=== PATIENT | male | born 1960 | race Caucasian/White ===

== ENCOUNTER 2018-02-15 13:33 | Observation (INO) | payer OTHER ==
--- OUTSIDE RECORDS SUMMARY | 2018-02-15 13:46 | XMS REPORT | Clinical Summary ---
:1960 Author Organization [facility] Address [address] [place] [address] Care Team Providers Name Role Phone Asked, None Given Primary Care Provider Unavailable Allergies Active Allergy Reactions Severity Noted Date Comments Meperidine GI Intolerance High 03/19/2017 "severe vomiting" Latex Anaphylaxis High 03/19/2017 Infliximab Anaphylaxis High 03/19/2017 Current Medications Prescription Sig. Disp. Refills Start Date End Date Status predniSONE Take 5 mg by Active (DELTASONE) 10 MG mouth every tablet morning. folic acid (FOLVITE) Take 1 mg by Active 1 MG tablet mouth daily. ARIPiprazole Take 5 mg by Active (ABILIFY) 5 MG mouth every tablet morning. tamsulosin (FLOMAX) Take 0.4 mg by Active 0.4 mg mouth every capsule,extended morning. release 24hr DULOXETINE HCL Take 60 mg by Active (CYMBALTA ORAL) mouth every morning. Takes two of the 60mg in the morning rivaroxaban Take 15 mg by Active (XARELTO) tablet mouth every morning. multivitamin capsule Take 1 capsule Active by mouth daily. ferrous sulfate Take 325 mg by Active (IRON) 325 (65 FE) mouth daily. MG tablet ascorbic acid, Take 500 mg by Active vitamin C, (ascorbic mouth daily. acid with philip hips) 500 MG tablet sotalol (BETAPACE) Take 120 mg by Active 120 MG tablet mouth 2 (two) times a day. chlorthalidone Take 25 mg by Active (HYGROTEN) 25 MG mouth every tablet morning. spironolactone Take 50 mg by Active (ALDACTONE) 50 MG mouth 2 (two) tablet times a day. acetaZOLAMIDE Take 250 mg by Active (DIAMOX) 250 MG mouth every tablet morning. ANAKINRA (KINERET Inject 100 mg Active SUBQ) under the skin daily. omeprazole TAKE 1 CAPSULE 90 capsule 2 10/25/2017 Active (PriLOSEC) 20 MG (20 MG TOTAL) capsule BY MOUTH DAILY FOR 180 DAYS. sulfaSALAzine Take 500 mg by Discontinued (AZULFIDINE) 500 mg mouth 2 (two) 7 tablet times a day. Takes 2 tabs of the 500mg BID NEBIVOLOL HCL Take 40 mg by Discontinued (BYSTOLIC ORAL) mouth. 7 METHOTREXATE SODIUM Take 20 mg by Discontinued (METHOTREXATE, mouth once a 7 ANTI-RHEUMATIC, week. ORAL) pantoprazole Take 40 mg by Discontinued (PROTONIX) 40 MG EC mouth every 7 tablet morning. CALCIUM Take 1 tablet Discontinued CARBONATE/VITAMIN D3 by mouth 7 (CALTRATE 600 + D daily. ORAL) CHOLECALCIFEROL, Take by mouth Discontinued VITAMIN D3, (VITAMIN daily. 7 D3 ORAL) HYDROcodone-acetamin Take 1 tablet 0 03/12/2017 Discontinued ophen (NORCO) 10-325 by mouth 4 7 mg per tablet (four) times a day. omeprazole Take 1 capsule 90 capsule 1 04/02/2017 Discontinued (PriLOSEC) 20 MG (20 mg total) 7 capsule by mouth daily for 180 days. ondansetron ODT Take 1 tablet 21 tablet 0 04/02/2017 (ZOFRAN-ODT) 8 MG (8 mg total) 7 disintegrating by mouth every tablet 8 (eight) hours as needed for nausea or vomiting for up to 30 days. HYDROcodone-acetamin Take 20 mL by 04/02/2017 ophen (HYCET) mouth every 4 7 2.5-108.3 mg/5 mL (four) hours solution as needed for moderate pain for up to 21 days. Max Daily Amount: 120 mL Active Problems Problem Noted Date Urethral stricture 05/26/2017 Overview: on tamsulosin Acute cystitis without hematuria 05/26/2017 Morbid obesity with BMI of 45.0-49.9, adult 04/01/2017 S/P laparoscopic sleeve gastrectomy 03/31/2017 Encounters Date Type Specialty Care Team Description 11/05/2017 Hospital Encounter Yo Baker MD 11/05/2017 Hospital Encounter Radiology Yo Khan MD 11/05/2017 Hospital Encounter Yo Baker MD 11/05/2017 Hospital Encounter Yo Baker MD 11/05/2017 Office Visit General Surgery Sd Torres S/P laparoscopic sleeve gastrectomy (Primary Dx); CANDELARIO Alicia Morbid obesity with BMI of 45.0-49.9, adult 11/05/2017 Ancillary Orders Radiology Yo Khan MD 10/24/2017 Refill General Surgery Jackelin Nguyễn PA 07/09/2017 Office Visit General Surgery Jackelin Nguyễn Morbid obesity with BMI of 50.0-59.9, adult (Primary Dx); CANDELARIO Osborne S/P laparoscopic sleeve gastrectomy 07/09/2017 Orders Only General Surgery Erin Tsang, [place] 05/27/2017 Telephone General Surgery Jackelin Nguyễn PA 05/26/2017 Office Visit General Surgery Yo Khan Morbid obesity with BMI of 50.0-59.9, adult (Primary Dx); MD Antoine S/Hetal laparoscopic sleeve gastrectomy; Acute cystitis without hematuria 04/20/2017 Office Visit General Surgery oY Khan Morbid obesity with BMI of 50.0-59.9, adult (Primary Dx); MD Clarisa Schultz/Hetal laparoscopic sleeve gastrectomy 03/31/2017 - Hospital Encounter General Surgery Yo Khan Preop testing (Primary Dx); 04/02/2017 MD Antoine Morbid exogenous obesity; Benign hypertension; Lateral ventral hernia 03/31/2017 Procedure Pass General Surgery 03/31/2017 Surgery General Surgery Yo Khan GASTRECTOMY, Antoine CASEY MD LAPAROSCOPIC 03/22/2017 Anesthesia Event General Surgery Lakia Mckinney NP after 02/14/2017 Family History Medical History Relation Name Comments Cirrhosis Brother Hepatitis Brother Cancer Father Melanoma Father Cancer Mother Hypertension Mother Lung cancer Mother Osteoporosis Mother Relation Name Status Comments Brother Alive Father Mother Alive Social History Tobacco Use Types Packs/Day Years Used Date Never Smoker Smokeless Tobacco: Never Used Alcohol Use Drinks/Week oz/Week Comments No Sex Assigned at Date Recorded Not on file Last Filed Vital Signs Vital Sign Reading Time Taken Blood Pressure 104/57 11/05/2017 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 Pulse 78 11/05/2017 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 Temperature 36.4 C (97.6 F) 11/05/2017 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 Respiratory Rate 16 11/05/2017 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 Oxygen Saturation 98% 04/02/2017 8:33 AM CDT Inhaled Oxygen Concentration - - Weight 175 kg (386 lb 1.6 oz) 11/05/2017 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 Height 188 cm (6' 2") 11/05/2017 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 Body Mass Index 49.57 11/05/2017 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 Plan of Treatment Date Type Specialty Care Team Description 03/09/2018 Office Visit General Surgery Yo Khan MD [address] [address] Health Maintenance Due Date Last Done Comments COLONOSCOPY 2011 INFLUENZA VACCINE 06/22/2017 Procedures Procedure Name Priority Date/Time Associated Diagnosis Comments ARTERIAL LINE Routine 03/31/2017 9:07 AM CDT Procedure Note - William Jacob MD - 03/31/2017 9:07 AM CDT Arterial line Performed by: WILLIAM JACOB Authorized by: WILLIAM JCAOB Patient Location: OR Staff: Anesthesiologist: WILLIAM JACOB Performed by: Anesthesiologist Pre-procedure: patient identified, IV checked, site and side verified, risks and benefits discussed, procedure verified, surgical consent complete, patient position confirmed, monitors and equipment checked and pre-op evaluation complete MSBT: antiseptic used, all elements of maximal sterile barrier technique followed, hand hygiene performed, cap/gown used by other personnel and solutions labeled Indications: Indications: hemodynamic monitoring Anesthesia: Anesthesia: General Procedure Details: Arterial Line placement: Placed post induction Line placement site: Radial Line placement side: Left Arterial line gauge: 20 G Number of attempts: 2 Ultrasound guidance used: Yes Post-procedure: Post-procedure: Sterile dressing applied Patient tolerance: Patient tolerated the procedure well with no immediate complications NH AN ELECTIVE ENDOTRACHEAL AIRWAY Routine 03/31/2017 9:06 AM CDT Procedure Note - William Jacob MD - 03/31/2017 9:06 AM CDT Airway Performed by: WILLIAM JACOB Authorized by: WILLIAM JACOB Location: OR Urgency: Elective Difficult Airway: No Preoxygenated with 100% O2: Yes C-spine Precautions Maintained Throughout: No Mask Ventilation: Easy mask Final Airway Type: Endotracheal airway Final Endotracheal Airway: ETT Cuffed: Yes Technique Used: Direct laryngoscopy Blade Type: Cardona Laryngoscope Blade/Videolaryngoscope Blade Size: 2 ETT Size (mm): 8.0 Cuff at minimum occlusion pressure: Yes Measured from: Lips ETT to Lips (cm): 23 Placement Verified by: CO2 detection, direct visualization and equal breath sounds Laryngoscopic view: Grade I - full view of glottis Rapid Sequence Induction (RSI): No Modified RSI: No Number of Attempts at Approach: 1 GASTRECTOMY, SLEEVE, 03/31/2017 8:00 AM CDT Morbid exogenous obesity LAPAROSCOPIC Case Notes BMI 63.9, BARIATRIC BED Special Needs BMI 63.9, BARIATRIC BED after 02/14/2017 Results CBC with platelet and differential (04/01/2017 5:00 AM)Only the most recent of2 resultswithin the time period is included. Component Value Ref Range WBC 13.93 (H) 4.50 - 11.00 k/uL RBC 3.78 (L) 4.40 - 6.00 m/uL HGB 12.1 (L) 14.0 - 18.0 g/dL HCT 38.0 (L) 41.0 - 51.0 % MCV 100.5 (H) 82.0 - 100.0 fL MCH 32.0 27.0 - 34.0 pg MCHC 31.8 31.0 - 37.0 g/dL RDW - SD 52.0 37.0 - 55.0 fL MPV 10.9 8.8 - 13.2 fL Platelet count 235 150 - 400 k/uL Nucleated RBC 0.10 /100 WBC Neutrophils 63.9 39.0 - 69.0 % Lymphocytes 22.0 (L) 25.0 - 45.0 % Monocytes 11.8 (H) 0.0 - 10.0 % Eosinophils 0.5 0.0 - 5.0 % Basophils 0.7 0.0 - 1.0 % Immature granulocytes 1.1 (H)Comment: "Immature granulocytes" 0.0 - 1.0 % (promyelocytes, myelocytes, metamyelocytes) Specimen Performing Laboratory Blood [facility] DEPARTMENT OF PATHOLOGY AND GENOMIC MEDICINE [address] [place] [address] Estimated GFR (04/01/2017 4:00 AM)Only the most recent of2 resultswithin the time period is included. Component Value Ref Range GFR Non Af Amer >90 mL/min/1.73 m2 GFR Af Amer >90 mL/min/1.73 m2 Comment: Chronic kidney disease: <60 mL/min/1.73m2 Kidney failure: <15 mL/min/1.73m2 The estimated GFR is calculated from the IDMS-traceable Modification of Diet in Renal Disease Equation. The accuracy of the calculation is poor when the creatinine is normal. Calculated values >90 mL/min/1.73m2 are not reported. This equation has not been validated in children (<18 years), women, the elderly (>70 years), or ethnic groups other than Caucasians and Americans. Specimen Performing Laboratory Plasma specimen [facility] [address] [address] Magnesium level (04/01/2017 4:00 AM)Only the most recent of2 resultswithin the time period is included. Component Value Ref Range Magnesium 2.2 1.6 - 2.6 mg/dL Specimen Performing Laboratory Plasma specimen [facility] [address] [address] Basic metabolic panel (04/01/2017 4:00 AM)Only the most recent of2 resultswithin the time period is included. Component Value Ref Range Sodium 134 (L) 135 - 148 mEq/L Potassium 4.6 3.5 - 5.0 mEq/L Chloride 99 98 - 112 mEq/L CO2 19 (L) 24 - 31 mEq/L Anion gap 16 (H) 7 - 15 mEq/L Comment: Starting from February , anion gap calculation no longer incorporates potassium. Please note the change. BUN 11 6 - 20 mg/dL Creatinine 0.8 0.7 - 1.2 mg/dL Glucose 118 (H) 65 - 99 mg/dL Calcium 8.2 (L) 8.3 - 10.2 mg/dL Specimen Performing Laboratory Plasma specimen [facility] AND [address] [address] ECG 12 lead (03/31/2017 8:19 PM) Component Value Ref Range Ventricular rate 99 Atrial rate 99 NH interval 188 QRSD interval 94 QT interval 356 QTC interval 456 P axis 1 59 QRS axis 1 62 T wave axis 57 EKG impression Normal sinus rhythm-Low voltage QRS-Incomplete right bundle branch block-Septal infarct , age undetermined-Abnormal ECG-In automated comparison with ECG of 22-MAR-2017 10:03,-Septal infarct is now prese nt-Nonspecific T wave abnormality now evident in Anterior leads-Electronically Signed By Ajit Shaw ([id number]) on 2016 7:44:44 PM Specimen Performing Laboratory [facility] [address] [place] [id number] Surgical pathology request (03/31/2017 8:46 AM) Component Value Ref Range Surgical pathology report See link below for PDF Lab Report Specimen Performing Laboratory [facility] DEPARTMENT OF PATHOLOGY AND GENOMIC MEDICINE [address] [place] [id number] ECG Pre/Post Op (03/22/2017 10:03 AM) Component Value Ref Range Ventricular rate 80 Atrial rate 80 NH interval 170 QRSD interval 92 QT interval 396 QTC interval 456 P axis 1 17 QRS axis 1 87 T wave axis 57 EKG impression Normal sinus rhythm-Incomplete right bundle branch block-Borderline ECG- Specimen Performing Laboratory [facility] [address] [place] [id number] after 02/14/2017 Insurance Payer Benefit Plan / Group Subscriber ID Type Phone Address COMMERCIAL MISC MISC COMMERCIAL xxxxxxxxxxx Commercial MEDICARE MEDICARE PART A AND B xxxxxxxxxx Medicare [facility] xxxxxxxxxxx Commercial [phone] [address]
[2018-02-15 14:41] LABS: Absolute Lymphocytes (CBC) 2.6 K/uL (0.7-4.9); Absolute Neutrophil 10.4 K/uL (1.8-8.0); Basophils % 0.8 % (0-1.3); Eosinophils % 2.8 % (0-4.4); Hematocrit 40.8 % (39.6-49.0); MCH 29.5 pg (27.0-35.0); MCV 90.2 fL (80-100); MPV 9.2 fL (7.6-11.3); Monocytes % 7.1 % (3.3-12.3); RBC Red Blood Cell Count 4.52 M/uL (4.33-5.43)
[2018-02-15] MEDS: NA CHLORIDE 0.9% 1,000 ML IV SCH (14:50)
[2018-02-15] MEDS: CEFEPIME/SWI 1gm 1 GM/10 ML SYR IV SCH ×2 (14:51→20:32)
[2018-02-15] MEDS: VANCOMYCIN/NS 1 gm 1 GM/250 ML BAG IVPB SCH (14:51)
[2018-02-15 14:58] LABS: Potassium 3.3 mEq/L (3.6-5.0)
[2018-02-15] MEDS ORDERED: predniSONE 20 MG TAB PO ONE (15:00)
[2018-02-15 15:01] LABS: Bilirubin Total 0.6 mg/dL (0.3-1.2); Magnesium 1.5 mg/dL (1.8-2.5); Protein, Total 7.2 g/dL (6.0-8.3)
[2018-02-15 15:36] LABS: Thyroid Stimulating Hormone 1.35 uIU/mL (0.34-5.60)
[2018-02-15] MEDS ORDERED: HYDROMORPHONE ORAL 4 MG TAB PO PRN (16:09)
[2018-02-15] MEDS ORDERED: PROMETHAZINE 25 MG TABLET PO PRN (16:09)
[2018-02-15] MEDS: PANTOPRAZOLE 40MG TABLET PO SCH (16:49)
[2018-02-15] MEDS ORDERED: Magnesium Sulfate 2gm IVPB 2 G/50 ML BAG IV ONE (17:00)
[2018-02-15] MEDS ORDERED: POTASSIUM CL SA 10 MEQ TAB PO ONE (17:00)
[2018-02-15 17:47] VITALS: BMI 48.7
[2018-02-15] MEDS ORDERED: ONDANSETRON 4 MG/2 ML VIAL IV PRN (18:44)
[2018-02-15] MEDS: PROMETHAZINE 25 MG/ML VIAL IV PRN (20:33)
[2018-02-15] MEDS: FENTANYL CITR 100 MCG/2 ML IV PRN (20:33)
[2018-02-15] MEDS: SOTALOL HCL 80 MG TAB PO SCH (20:33)
[2018-02-15] MEDS: SPIRONOLACTONE 25 MG TABLET PO SCH (20:34)
[2018-02-15] MEDS ORDERED: CEFEPIME 1 GM/VIAL IV SCH (21:00)
[2018-02-15] MEDS ORDERED: HOME MED 1 EA UNK (Spironolactone [Spironolactone] 50 MG) PO SCH (21:00)
[2018-02-16 00:01] LABS: Magnesium 2.1 mg/dL (1.8-2.5); Potassium 4.2 mEq/L (3.6-5.0)
[2018-02-16] MEDS: PROMETHAZINE 25 MG/ML VIAL IV PRN ×3 (00:11→09:31)
[2018-02-16] MEDS: FENTANYL CITR 100 MCG/2 ML IV PRN ×3 (00:11→09:32)
[2018-02-16] MEDS: VANCOMYCIN/NS 1 gm 1 GM/250 ML BAG IVPB SCH (03:24)
[2018-02-16] MEDS: NA CHLORIDE 0.9% 1,000 ML IV SCH (03:25)
--- NOTE | 2018-02-16 04:46 | HP ---
Date of Admission: 02/15/2018 Chief Complaint: Cloudy urine, abdominal pain. History Of Present Illness: This is a 57-year-old pleasant male patient with history of urethral str icture, recurrent UTI, gets intermittent catheterization of bladder done 2 to 4 times a day. Yesterd hilda, I was contacted by home health nurse, requesting urine specimen to be collected for urinalysis an d urine culture as the patient's urine was very cloudy and he was having some abdominal pain/flank pa in. Urinalysis was done which result reviewed this morning. It was abnormal consistent with urinary tract infection and when I talked to the patient's this morning, she notified me that the patie nt's blood pressure yesterday systolic blood pressure was around 67 and he was feeling little dizzy. This morning, his blood pressure was 86, systolic. Denies any diarrhea but yesterday he had 2 episo mayra of vomiting. He has been having right-sided anterior and posterior flank pain. His urine is lisa udy and has peculiar foul smelling odor. Arrangements were made for him to be admitted directly to [facility] for further evaluation and management of this problem. Allergies: TO DEMEROL, REMICADE, AND LATEX. Medications: List reviewed. Review of Systems: Genitourinary: As mentioned above. GI: As mentioned above. Constitutional: As mentioned above. All other systems reviewed and negative. Social History: Negative for smoking or alcohol use. Family History: Not pertinent. Past Surgical History: Significant for recent abdominal wall abscess and incision and drainage done for that, ventral hernia, knee surgery, and Port-A-Cath placement. 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 Physical Examination: Vital Signs: Reviewed. General: Awake, alert, oriented, not in distress. HEENT: Head atraumatic, normocephalic. Conjunctivae nonerythematous. Sclerae white. Mouth, no thr ush or edema noted. Ears/Nose, no mass, lesion, discharge noted. Neck: Supple. No JVD, lymph nodes, bruit, thyromegaly noted. Lungs: Bilateral good equal air entry. Clear to auscultation. No rhonchi. No rales. Heart: Normal heart sounds, no murmur or gallop. Abdomen: Left upper anterior abdomen has a very small dressing with a wound VAC present and abdomen has tenderness on the right anterior and posterior flank region. No rebound tenderness. Bowel sound s normoactive. Extremities: No leg edema. No calf tenderness. Skin: No rash, ulcer, cellulitis. Lymphatics: No lymph node enlargement in neck, supraclavicular, infraclavicular region. Neuro: No focal neurological deficit. Chest: Unremarkable. External Genitalia: Deferred. Rectal: Deferred. Laboratory Data: White count 14.6, hemoglobin 13.3, platelets 301. Sodium 134, potassium 3.3, chlor manuel 97, bicarb 27, BUN 24, creatinine 1.18, glucose 143, magnesium 1.5. Liver function tests unremar kable. TSH 1.35. Urinalysis; positive for nitrite, 3+ esterase, wbc more than 50, bacteria 20 to 50 . Urine culture pending. Impression: 1.Urinary tract infection. 2.Rule out sepsis. 3.Hypokalemia. 4.Hypomagnesemia. 5.Hypotension. 6.Chronic steroid therapy. 7.Chronic anticoagulation therapy. 8.Paroxysmal atrial fibrillation. 9.Sleep apnea. 10.Morbid obesity. 11.Urethral stricture. 12.Rheumatoid arthritis. 13.Crohn disease. 14.Ventral hernia. 15.Hypertension. Plan: Admit the patient to hospital for further evaluation and management of this problem. The della ent is appropriate for inpatient and is expected to spend 2 midnights in the hospital. Continue home medications per order, 20 mg of prednisone p.o. x1 dose was ordered starting tomorrow. We will cont inue his usual dose of prednisone. IV fluid normal saline will be given. Continue Xarelto as he epifanio es at home and other current medications. We will follow up on urine culture. Start empiric antibio tic, vancomycin and cefepime. 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 Depending on the culture results, we will decide culture sp ecific antibiotic. Port-A-Cath will be accessed. The patient is requesting some stronger pain medic ation and IV fentanyl was ordered. Details and plan of treatment discussed with him. Consultation w as requested from Dr. Joya from General Surgery to look at his wound care management, but conside ring he is out of town, the patient will need to continue to follow up with him on outpatient basis. JORDAN/KENDALL Voice ID: [id number]
[2018-02-16] MEDS ORDERED: RIVAROXABAN 15 MG TABLET PO SCH (08:00)
[2018-02-16 08:13] VITALS: BP 102/60; TEMP 99.6
[2018-02-16] MEDS: PANTOPRAZOLE 40MG TABLET PO SCH (08:20)
[2018-02-16] MEDS: SOTALOL HCL 80 MG TAB PO SCH (08:21)
[2018-02-16] MEDS: SPIRONOLACTONE 25 MG TABLET PO SCH (08:22)
[2018-02-16] MEDS ORDERED: HEPARIN 500 UNIT/5 ML SYR IV PRN (08:56)
[2018-02-16] MEDS ORDERED: ARIPiprazole 5 MG TAB PO SCH (09:00)
[2018-02-16] MEDS ORDERED: acetaZOLAMIDE 250 MG TAB PO SCH (09:00)
[2018-02-16] MEDS ORDERED: DULOXETINE 30 MG CAP PO SCH (09:00)
[2018-02-16] MEDS ORDERED: DULOXETINE HCL PO SCH (09:00)
[2018-02-16] MEDS ORDERED: TAMSULOSIN 0.4 MG SR CAP PO SCH (09:00)
[2018-02-16] MEDS ORDERED: predniSONE 5 MG TAB PO SCH (09:00)
[2018-02-16] MEDS ORDERED: CHLORTHALIDONE 25 MG TAB PO SCH (09:00)
[2018-02-16] MEDS: CEFEPIME/SWI 1gm 1 GM/10 ML SYR IV SCH (09:52)
[2018-02-16 11:08] LABS: A1c Component 0.63 mg/dL; Hemoglobin A1c 6.4 % (4-6.0)
[2018-02-16 13:12] VITALS: O2SAT 93
[2018-02-16] MEDS ORDERED: VANCOMYCIN 2 GM in NA CHLORIDE 0.9% 500 ML IV SCH (14:00)
--- NOTE | 2018-02-28 05:13 | DS ---
Date of Discharge: 02/16/2018 Physical Examination: HEENT: Unremarkable. Lungs: Clear to auscultation. Heart: Sounds normal. Abdomen: Soft, bowel sounds normal. No guarding, rigidity, tenderness, or distention. Extremities: No leg edema. Discharge Diagnoses: 1.Urinary tract infection. 2.Hypokalemia. 3.Hypomagnesemia. 4.Hypotension. 5.Paroxysmal atrial fibrillation. 6.Chronic anticoagulation therapy. 7.Chronic steroid therapy. 8.Sleep apnea. 9.Morbid obesity. 10.Urethral stricture. 11.Rheumatoid arthritis. 12.Crohn disease. 13.Ventral hernia. 14.Hypertension. Hospital Course: A 57-year-old male patient, admitted to the hospital with cloudy urine, abdominal p ain, and low blood pressure. Please see dictated H and P for more information. The patient was admi tted to the hospital with this urinary tract infection. He has urethral stricture. Does self cathet erization of the bladder and has prior history of urinary tract infection with resistant bacteria lik e MRSA. We were concerned about infection with resistant bacteria. His outpatient urinalysis was ab normal and he was admitted to the hospital. Our other concern was if we were dealing with possibilit y of sepsis. Blood culture was done. Upon admission, it came back negative. Urine culture with uri ne specimen that was collected day before admission to the hospital came back growing E. coli and thi s was sensitive to multiple different antibiotic including Levaquin and Cipro. The patient has taken Levaquin before without any problem. During this hospitalization, he was given IV antibiotic, vanco mycin, and cefepime and overall his condition improved. Hemoglobin A1c came back 6.4, potassium was 3.3, which was low and magnesium 1.5 which was low. Both of them were corrected. Repeat potassium 4 .2, repeat magnesium 2.1. Once the urine culture result was available, he was discharged to go home in stable condition with oral antibiotic. Discharge Medications And Instructions: 1.Continue all prior home medications. 2.Start Levaquin 500 mg p.o. daily for 10 days. 3.Follow up at my office in 1 month. JORDAN/MODL Voice ID: [id number] Report ID: [id number]
== END 2018-02-16 11:31 | disposition home or self-care (01) ==
LOC: 4TH 13:43 → INTOOBSV 13:43
PROVIDERS: ADMIT Internal Medicine; ATTEND Internal Medicine
DX: N39.0 Urinary tract infection, site not specified (principal); B96.20 Unspecified Escherichia coli [E. coli] as the cause of diseases classified elsewhere; E87.6 Hypokalemia; E83.42 Hypomagnesemia; I95.9 Hypotension, unspecified; I48.0 Paroxysmal atrial fibrillation; G47.30 Sleep apnea, unspecified; E66.01 Morbid (severe) obesity due to excess calories; Z68.42 Body mass index [BMI] 45.0-49.9, adult; N35.9 Urethral stricture, unspecified; M06.9 Rheumatoid arthritis, unspecified; K50.90 Crohn's disease, unspecified, without complications; K43.9 Ventral hernia without obstruction or gangrene; I10 Essential (primary) hypertension; Z79.01 Long term (current) use of anticoagulants; Z79.52 Long term (current) use of systemic steroids; Z91.040 Latex allergy status
CPT/HCPCS: 36415; 80053; 83036; 83735; 84132; 84443; 85025; 87040; G0378; J0692; J1642; J2550; J3010; J3370; J3475; J7030; J7512

== ENCOUNTER 2018-06-22 12:35 | Inpatient (IN) | payer OTHER ==
[2018-06-22] MEDS ORDERED: NA CHLORIDE 0.9% 2,000 ML ONE (13:04)
[2018-06-22] MEDS ORDERED: CEFTRIAXONE/SWI 1gm 2 GM/20 ML SYR ONE (13:04)
[2018-06-22] MEDS ORDERED: Meropenem 1 GM/100 ML BAG ONE (13:31)
[2018-06-22] MEDS ORDERED: FENTANYL CITR 100 MCG/2 ML ONE (13:55)
[2018-06-22] MEDS ORDERED: PROMETHAZINE 25 MG/ML VIAL ONE (13:55)
[2018-06-22] MEDS ORDERED: ONDANSETRON 4 MG/2 ML VIAL ONE (13:56)
[2018-06-22 14:02] LABS: Urine Blood NEGATIVE (NEG); Urine Glucose NEGATIVE (NEG); Urine Protein NEGATIVE (NEG); Urine pH 7.5 (5.0-7.0)
[2018-06-22 14:06] LABS: Absolute Monocytes 0.6 K/uL (0.1-1.3); Absolute Neutrophil 6.5 K/uL (1.8-8.0); Basophils % 0.7 % (0-1.3); Eosinophils % 1.2 % (0-4.4); Hematocrit 39.8 % (39.6-49.0); Lymphocytes % 21.6 % (15.3-44.8); MCH 31.8 pg (27.0-35.0); MCV 94.3 fL (80-100); MPV 8.9 fL (7.6-11.3); Monocytes % 6.3 % (3.3-12.3); RBC Red Blood Cell Count 4.22 M/uL (4.33-5.43)
[2018-06-22 14:09] LABS: Protime INR 1.54
--- NOTE | 2018-06-22 14:13 | EDPHYS ---
Physician Documentation [facility] Name: Husam Vela Age: 57 yrs Sex: Male : 1960 Arrival Date: 06/22/2018 Time: 12:40 Bed 24 Private MD: Yuliana Tubbs C ED Physician Jake Roland HPI: 06/22 12:52 This 57 yrs old Male presents to ER via Wheelchair with complaints of Pain barbara With Urination. 12:52 The patient presents with abdominal pain in the right upper quadrant, right lower barbara quadrant, abdominal distention in the upper abdomen, in the lower abdomen. Onset: The symptoms/episode began/occurred 1 week(s) ago. The patient presents with flank pain, described as constant, sharp, of the right mid back and right low back, that does not radiate, urinary symptoms, dribbling of urine, dysuria, urinary frequency. Onset: The symptoms/episode began/occurred 1 week(s) ago. Modifying factors: The symptoms are alleviated by remaining still, the symptoms are aggravated by movement. Associated signs and symptoms: Pertinent positives: abdominal pain, fever, nausea. The symptoms do not radiate. Historical: - Allergies: 12:47 Demerol; tw2 12:47 Latex, Natural Rubber; tw2 12:47 Remicade; tw2 - Home Meds: 12:47 Abilify 5 mg Oral tab 1 tab once daily [Active]; anakinra subcutaneous once daily tw2 [Active]; chlorthalidone 25 mg Oral tab 1 tab once daily [Active]; Cymbalta 60 mg Oral cpDR 2 caps once daily [Active]; Flomax 0.4 mg Oral cp24 1 cap once daily [Active]; [place] 7.5-325 mg oral tab 1 tab every 6 hours [Active]; prednisone 5 mg Oral tab 1 tab once daily [Active]; sotalol 80 mg Oral tab 1 tab 2 times per day [Active]; spironolactone 50 mg Oral tab 1 tab 2 times per day [Active]; Xarelto 20 mg Oral tab 1 tab once daily [Active]; Protonix 40 mg Oral TbEC 1 tab once daily [Active]; - PMHx: 12:47 Atrial Fib; Hypertension; 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 - Social history:: Smoking status: Patient/guardian denies using tobacco. - Ebola Screening: : Patient negative for fever greater than or equal to 101.5 degrees Fahrenheit, and additional compatible Ebola Virus Disease symptoms Patient denies exposure to infectious person Patient denies travel to an Ebola-affected area in the 21 days before illness onset. - Family history:: not pertinent. ROS: 12:52 Constitutional: Negative for fever, chills, and weight loss, Eyes: Negative for injury, barbara pain, redness, and discharge, ENT: Negative for injury, pain, and discharge, Neck: Negative for injury, pain, and swelling, Cardiovascular: Negative for chest pain, palpitations, and edema, Respiratory: Negative for shortness of breath, cough, wheezing, and pleuritic chest pain, Back: Negative for injury and pain, MS/Extremity: Negative for injury and deformity, Skin: Negative for injury, rash, and discoloration, Neuro: Negative for headache, weakness, numbness, tingling, and seizure, Psych: Negative for depression, anxiety, suicide ideation, homicidal ideation, and hallucinations, Allergy/Immunology: Negative for hives, rash, and allergies, Endocrine: Negative for neck swelling, polydipsia, polyuria, polyphagia, and marked weight changes, Hematologic/Lymphatic: Negative for swollen nodes, abnormal bleeding, and unusual bruising. 12:52 Abdomen/GI: Positive for abdominal pain, of the right upper quadrant and right lower quadrant. 12:52 : Positive for urinary symptoms, flank pain, of the right mid back and right low back. Exam: 12:52 Constitutional: This is a well developed, well nourished patient who is awake, alert, barbara and in no acute distress. Head/Face: Normocephalic, atraumatic. Eyes: Pupils equal round and reactive to light, extra-ocular motions intact. Lids and lashes normal. Conjunctiva and sclera are non-icteric and not injected. Cornea within normal limits. Periorbital areas with no swelling, redness, or edema. ENT: Nares patent. No nasal discharge, no septal abnormalities noted. Tympanic membranes are normal and external auditory canals are clear. Oropharynx with no redness, swelling, or masses, exudates, or evidence of obstruction, uvula midline. Mucous membranes moist. Neck: Trachea midline, no thyromegaly or masses palpated, and no cervical lymphadenopathy. Supple, full range of motion without nuchal rigidity, or vertebral point tenderness. No Meningismus. Chest/axilla: Normal chest wall appearance and motion. Nontender with no deformity. No lesions are appreciated. Cardiovascular: Regular rate and rhythm with a normal S1 and S2. No gallops, murmurs, or rubs. Normal PMI, no JVD. No pulse deficits. Respiratory: Lungs have equal breath sounds bilaterally, clear to auscultation and percussion. No rales, rhonchi or wheezes noted. No increased work of breathing, no retractions or nasal flaring. Male : Normal genitalia with no discharge or lesions. Skin: Warm, dry with normal turgor. Normal color with no rashes, no lesions, and no evidence of cellulitis. Neuro: Awake and alert, GCS 15, oriented to person, place, time, and situation. Cranial nerves II-XII grossly intact. Motor strength 5/5 in all extremities. Sensory grossly intact. Cerebellar exam normal. Normal gait. Psych: Awake, alert, with orientation to person, place and time. Behavior, mood, and affect are within normal limits. 12:52 Abdomen/GI: Inspection: distension, Bowel sounds: normal, Palpation: mild abdominal tenderness, in the suprapubic area, Liver: no appreciated palpable abnormalities, Hernia: not appreciated. Vital Signs: 12:40 BP 96 / 64; Pulse 97; Resp 20; Temp 98.6; Pulse Ox 98% ; Weight 172.37 kg; Height 6 ft. tw2 2 in. (187.96 cm); 12:45 Pain 8/10; tw2 13:38 BP 105 / 63; Pulse 93; Resp 17; Pulse Ox 95% on R/A; tw2 14:52 BP 103 / 64; Pulse 87; Resp 17; Pulse Ox 99% on R/A; tw2 15:45 BP 107 / 65; Pulse 86; Resp 17; Pulse Ox 99% on R/A; tw2 12:40 Body Mass Index 48.79 (172.37 kg, 187.96 cm) tw2 MDM: 12:43 Patient medically screened. [facility] [place] 12:55 Data reviewed: vital signs, nurses notes, lab test result(s), EKG, radiologic studies, [facility] [place] doppler, plain films. 06/22 12:50 Order name: Basic Metabolic Panel; Complete Time: 14:25 [facility] [place] 06/22 12:50 Order name: CBC with Diff; Complete Time: 14:10 [facility] [place] 06/22 12:50 Order name: Ckmb; Complete Time: 14:25 [facility] [place] 06/22 12:50 Order name: CPK; Complete Time: 14:25 [facility] [place] 06/22 12:50 Order name: LFT's; Complete Time: 14:25 [facility] [place] 06/22 12:50 Order name: Magnesium; Complete Time: 14:25 [facility] [place] 06/22 12:50 Order name: NT PRO-BNP; Complete Time: 14:25 [facility] [place] 06/22 12:50 Order name: PT-INR; Complete Time: 14:25 [facility] [place] 06/22 12:50 Order name: Ptt, Activated; Complete Time: 14:25 [facility] [place] 06/22 12:50 Order name: Troponin (emerg Dept Use Only); Complete Time: 14:25 [facility] [place] 06/22 12:50 Order name: Lipase; Complete Time: 14:25 [facility] [place] 06/22 12:50 Order name: Blood Culture Adult (2) [facility] [place] 06/22 12:50 Order name: Urine Culture [facility] [place] 06/22 12:50 Order name: Lactate; Complete Time: 14:25 [facility] [place] 06/22 12:50 Order name: XRAY Chest (1 view); Complete Time: 15:27 [facility] [place] 06/22 12:50 Order name: Procalcitonin; Complete Time: 15:27 [facility] [place] 06/22 12:50 Order name: Type And Screen; Complete Time: 15:27 [facility] [place] 06/22 12:50 Order name: CT Stone Protocol; Complete Time: 15:27 [facility] [place] 06/22 13:53 Order name: Urine Dipstick--Ancillary (enter results); Complete Time: 14:10 06/22 14:25 Order name: Basic Metabolic Panel [facility] 06/22 14:25 Order name: Basic Metabolic Panel [facility] 06/22 14:25 Order name: CBC with Automated Diff [facility] 06/22 14:25 Order name: CBC with Automated Diff [facility] 06/22 14:25 Order name: Troponin I [facility] 06/22 14:25 Order name: Troponin I [facility] 06/22 14:25 Order name: Troponin I [facility] 06/22 12:50 Order name: EKG; Complete Time: 12:51 [facility] [place] 06/22 12:50 Order name: Cardiac monitoring; Complete Time: 12:53 [facility] [place] 06/22 12:50 Order name: EKG - Nurse/Tech; Complete Time: 12:53 [facility] [place] 06/22 12:50 Order name: IV Saline Lock; Complete Time: 12:53 [facility] [place] 06/22 12:50 Order name: Labs collected and sent; Complete Time: 14:04 [facility] [place] 06/22 12:50 Order name: O2 Per Protocol; Complete Time: 12:53 [facility] [place] 06/22 12:50 Order name: O2 Sat Monitoring; Complete Time: 12:53 [facility] [place] 06/22 12:50 Order name: Urine Dipstick-Ancillary (obtain specimen); Complete Time: 14:04 [facility] [place] 06/22 14:25 Order name: Consistent Carb (ADA) 1800 Papa ED[facility] 06/22 14:25 Order name: EKG Electrocardiogram [facility] 06/22 14:25 Order name: EKG Electrocardiogram [facility] 06/22 14:25 Order name: EKG Electrocardiogram [facility] 06/22 14:25 Order name: EKG Electrocardiogram ED[facility] 06/22 14:25 Order name: EKG Electrocardiogram EDMS Administered Medications: 13:12 Not Given (Duplicate Order): Rocephin - (cefTRIAXone) 2 grams IVPB once over 30 mins; barbara (mix in 100 mL NS) 13:37 Drug: Rocephin - (cefTRIAXone) 2 grams {Note: ivp available only, provider aware.} tw2 Route: IVPB; Infused Over: 5 mins; Site: Port-a-cath; 13:42 Follow up: Response: No adverse reaction; IV Status: Completed infusion tw2 13:40 Drug: NS 0.9% 1000 ml Route: IV; Rate: 1 bolus; Site: Port-a-cath; tw2 14:30 Follow up: IV Status: Completed infusion; IV Intake: 1000ml tw2 13:40 Drug: NS 0.9% 1000 ml Route: IV; Rate: 125 ml/hr; Site: Port-a-cath; tw2 15:28 Follow up: IV Status: Infusion continued upon admission tw2 15:30 Follow up: IV Status: Infusion continued upon admission tw2 13:53 Drug: Zofran 4 mg Route: IVP; Site: Port-a-cath; tw2 14:05 Follow up: Response: No adverse reaction tw2 13:55 Drug: fentaNYL (PF) 50 mcg Route: IVP; Site: Port-a-cath; tw2 14:31 Follow up: Response: No adverse reaction; Pain is decreased tw2 14:03 CANCELLED (Duplicate Order): fentaNYL (PF) 50 mcg IVP once tw2 14:04 Not Given (Duplicate Order): Zofran 4 mg IVP once; over 2 minutes tw2 14:15 Drug: Meropenem 1 grams Route: IV; Rate: per protocol; Site: Port-a-cath; tw2 15:29 Follow up: Response: No adverse reaction; IV Status: Completed infusion tw2 14:52 Drug: fentaNYL (PF) 50 mcg Route: IVP; Site: Port-a-cath; tw2 15:29 Follow up: Response: No adverse reaction tw2 15:44 Drug: predniSONE 20 mg Route: PO; tw2 15:44 Follow up: Response: No adverse reaction tw2 Disposition: 06/22/18 14:12 Hospitalization ordered by Yuliana Tubbs for Inpatient Admission. Preliminary diagnosis are Cystitis, Dysuria, Weakness, Hypotension. - Bed requested for Telemetry/MedSurg (Inpatient). - Status is Inpatient Admission. tw2 - Condition is Fair. - Problem is new. - Symptoms have improved. UTI on Admission? Yes Signatures: Dispatcher [employer] EDAnnalisa Rhodes RN RN dw Anderson, Corey, MD MD cha Wise, Tara, RN RN 2 Kylah Willingham Corrections: (The following items were deleted from the chart) 14:03 13:51 fentaNYL (PF) 50 mcg IVP once ordered. [facility] [place] tw2 14:34 14:12 Hospitalization Ordered by A Suly PRICE for Inpatient Admission. Preliminary eb diagnosis is Cystitis; Dysuria; Weakness; Hypotension. Bed requested for Telemetry/MedSurg (Inpatient). Status is Inpatient Admission. Condition is Fair. Problem is new. Symptoms have improved. UTI on Admission? Yes. [facility] [place] 15:21 14:34 06/22/2018 14:12 Hospitalization Ordered by A Suly PRICE for Inpatient Admission. eb Preliminary diagnosis is Cystitis; Dysuria; Weakness; Hypotension. Bed requested for Telemetry/MedSurg (Inpatient). Status is Inpatient Admission. Condition is Fair. Problem is new. Symptoms have improved. UTI on Admission? Yes. eb 15:21 15:21 06/22/2018 14:12 Hospitalization Ordered by A Suly PRICE for Inpatient Admission. dw Preliminary diagnosis is Cystitis; Dysuria; Weakness; Hypotension. Bed requested for Telemetry/MedSurg (Inpatient). Status is Inpatient Admission. Condition is Fair. Problem is new. Symptoms have improved. UTI on Admission? Yes. eb 15:39 14:40 Bladder Scanner ordered. barbara tw2 15:45 15:21 06/22/2018 14:12 Hospitalization Ordered by A Suly PRICE for Inpatient Admission. tw2 Preliminary diagnosis is Cystitis; Dysuria; Weakness; Hypotension. Bed requested for Telemetry/MedSurg (Inpatient). Status is Inpatient Admission. Condition is Fair. Problem is new. Symptoms have improved. UTI on Admission? Yes. dw
--- NOTE | 2018-06-22 14:13 | ER ---
Nurse's Notes [facility] Name: Husam Vela Age: 57 yrs Sex: Male : 1960 Arrival Date: 06/22/2018 Time: 12:40 Bed 24 Private MD: Yuliana Tubbs C Diagnosis: Cystitis;Dysuria;Weakness;Hypotension Presentation: 06/22 12:40 Presenting complaint: Patient states: that he is having lower back and lower abd pain tw2 along with painful urination. Pt has been on Macrobid x 5 days for UTI. Symptoms not improving. Transition of care: patient was not received from another setting of care. Onset of symptoms was June 10, 2018. Risk Assessment: Do you want to hurt yourself or someone else? Patient reports no desire to harm self or others. Initial Sepsis Screen: Does the patient meet any 2 criteria? HR > 90 bpm. Yes Does the patient have a suspected source of infection? Yes: Dysuria/Frequency/Urgency/UTI. Care prior to arrival: Medication(s) given: Phenergan, at 0900 [place] at 0930. 12:40 Method Of Arrival: Wheelchair tw2 12:40 Acuity: CECI 3 tw2 Triage Assessment: 12:49 General: Appears uncomfortable, Behavior is cooperative, appropriate for age. Pain: tw2 Complains of pain in left low back, right low back and abdomen. Historical: - Allergies: 12:47 Demerol; tw2 12:47 Latex, Natural Rubber; tw2 12:47 Remicade; tw2 - Home Meds: 12:47 Abilify 5 mg Oral tab 1 tab once daily [Active]; anakinra subcutaneous once daily tw2 [Active]; chlorthalidone 25 mg Oral tab 1 tab once daily [Active]; Cymbalta 60 mg Oral cpDR 2 caps once daily [Active]; Flomax 0.4 mg Oral cp24 1 cap once daily [Active]; [place] 7.5-325 mg oral tab 1 tab every 6 hours [Active]; prednisone 5 mg Oral tab 1 tab once daily [Active]; sotalol 80 mg Oral tab 1 tab 2 times per day [Active]; spironolactone 50 mg Oral tab 1 tab 2 times per day [Active]; Xarelto 20 mg Oral tab 1 tab once daily [Active]; Protonix 40 mg Oral TbEC 1 tab once daily [Active]; - PMHx: 12:47 Atrial Fib; Hypertension; 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 - Social history:: Smoking status: Patient/guardian denies using tobacco. - Ebola Screening: : Patient negative for fever greater than or equal to 101.5 degrees Fahrenheit, and additional compatible Ebola Virus Disease symptoms Patient denies exposure to infectious person Patient denies travel to an Ebola-affected area in the 21 days before illness onset. - Family history:: not pertinent. Screenin:44 Abuse screen: Denies threats or abuse. Nutritional screening: No deficits noted. tw2 Tuberculosis screening: No symptoms or risk factors identified. Fall Risk None identified. Assessment: 13:38 Reassessment: No changes from previously documented assessment. Patient and/or family tw2 updated on plan of care and expected duration. Pain level reassessed. Patient is alert, oriented x 3, equal unlabored respirations, skin warm/dry/pink. 14:53 Reassessment: Patient and/or family updated on plan of care and expected duration. Pain tw2 level reassessed. Patient is alert, oriented x 3, equal unlabored respirations, skin warm/dry/pink. pt c/o pain, medicated as ordered. Vital Signs: 12:40 BP 96 / 64; Pulse 97; Resp 20; Temp 98.6; Pulse Ox 98% ; Weight 172.37 kg; Height 6 ft. tw2 2 in. (187.96 cm); 12:45 Pain 8/10; tw2 13:38 BP 105 / 63; Pulse 93; Resp 17; Pulse Ox 95% on R/A; tw2 14:52 BP 103 / 64; Pulse 87; Resp 17; Pulse Ox 99% on R/A; tw2 15:45 BP 107 / 65; Pulse 86; Resp 17; Pulse Ox 99% on R/A; tw2 12:40 Body Mass Index 48.79 (172.37 kg, 187.96 cm) tw2 ED Course: 12:40 Patient arrived in ED. tw2 12:40 Tubbs, A, MD is Private Physician. tw2 12:43 Jake Roland MD is Attending Physician. barbara 12:43 Triage completed. tw2 12:45 Arm band placed on. tw2 12:45 Bed in low position. Call light in reach. Side rails up X 1. Adult w/ patient. Pulse ox tw2 on. NIBP on. 12:49 Marianne Dorado RN is Primary Nurse. tw2 13:10 Accessed Port-a-Cath. using accessed w/ # 20 Harris needle, ,sterile technique, Clean \T\ tw2 dry. Dressing intact. Flushes easily. 13:34 EKG done, by strain technician. reviewed by Jake Roland MD. at1 13:35 No provider procedures requiring assistance completed. Initial lab(s) drawn, by me, tw2 sent to lab. First set of blood cultures drawn by me, Second set of blood cultures drawn by me. 13:36 XRAY Chest (1 view) In Process Unspecified. EDMS 14:11 Yuliana Tubbs MD is Hospitalizing Provider. [facility] 14:15 CT completed. Patient tolerated procedure well. Patient moved back from CT. 14:16 CT Stone Protocol In Process Unspecified. EDMS 15:23 Awaiting: attempted to call report was told STACEY Almendarez is discharging a pt and would call tw2 me back. 15:30 Patient admitted, IV remains in place. tw2 Administered Medications: 13:12 Not Given (Duplicate Order): Rocephin - (cefTRIAXone) 2 grams IVPB once over 30 mins; barbara (mix in 100 mL NS) 13:37 Drug: Rocephin - (cefTRIAXone) 2 grams {Note: ivp available only, provider aware.} tw2 Route: IVPB; Infused Over: 5 mins; Site: Port-a-cath; 13:42 Follow up: Response: No adverse reaction; IV Status: Completed infusion tw2 13:40 Drug: NS 0.9% 1000 ml Route: IV; Rate: 1 bolus; Site: Port-a-cath; tw2 14:30 Follow up: IV Status: Completed infusion; IV Intake: 1000ml tw2 13:40 Drug: NS 0.9% 1000 ml Route: IV; Rate: 125 ml/hr; Site: Port-a-cath; tw2 15:28 Follow up: IV Status: Infusion continued upon admission tw2 15:30 Follow up: IV Status: Infusion continued upon admission tw2 13:53 Drug: Zofran 4 mg Route: IVP; Site: Port-a-cath; tw2 14:05 Follow up: Response: No adverse reaction tw2 13:55 Drug: fentaNYL (PF) 50 mcg Route: IVP; Site: Port-a-cath; tw2 14:31 Follow up: Response: No adverse reaction; Pain is decreased tw2 14:03 CANCELLED (Duplicate Order): fentaNYL (PF) 50 mcg IVP once tw2 14:04 Not Given (Duplicate Order): Zofran 4 mg IVP once; over 2 minutes tw2 14:15 Drug: Meropenem 1 grams Route: IV; Rate: per protocol; Site: Port-a-cath; tw2 15:29 Follow up: Response: No adverse reaction; IV Status: Completed infusion tw2 14:52 Drug: fentaNYL (PF) 50 mcg Route: IVP; Site: Port-a-cath; tw2 15:29 Follow up: Response: No adverse reaction tw2 15:44 Drug: predniSONE 20 mg Route: PO; tw2 15:44 Follow up: Response: No adverse reaction tw2 Intake: 14:30 IV: 1000ml; Total: 1000ml. tw2 Outcome: 14:12 Decision to Hospitalize by Provider. barbara 15:30 Admitted to Med/surg accompanied by tech, via stretcher, Report called to STACEY Amlendarez tw2 15:30 Condition: stable 15:30 Instructed on the need for admit. 15:45 Patient left the ED. tw2 Signatures: Dispatcher [employer] Jake Clement MD MD cha Jones, Susan sj gonzales, Amanda, print developer EKG Tat1 Marianne Dorado, RN RN tw2
[2018-06-22] MEDS ORDERED: ACETAMINOPHEN 500 MG TAB PO PRN (14:15)
[2018-06-22 14:22] LABS: ALT/SGPT 43 U/L (12-78); AST/SGOT 18 U/L (15-37); Albumin 3.6 g/dL (3.4-5.0); Alkaline Phosphatase 89 U/L (45-117); BUN Blood Urea Nitrogen 18 mg/dL (7-18); Bicarbonate 32 mmol/L (21-32); Bilirubin Direct 0.1 mg/dL (0-0.2); Bilirubin Total 0.5 mg/dL (0.2-1.0); CKMB Creatine Kinase MB < 1.0 ng/mL (0.3-3.6); Creatine Phosphokinase 26 U/L (39-308); Glucose Level 150 mg/dL (74-106); Lipase 141 U/L (73-393); NT PRO-BNP 74 pg/mL (<125); Potassium 3.6 mmol/L (3.5-5.1); Protein, Total 6.9 g/dL (6.4-8.2); Sodium Level 140 mmol/L (136-145)
--- NOTE | 2018-06-22 14:33 | EKG ---
Test Date: 2018-06-22 Test Time: 13:25:19 Bioinformatics Software Engineer: KENNEDY MEASUREMENT RESULTS: Intervals: Rate: 95 WI: 174 QRSD: 90 QT: 384 QTc: 482 [place]: P: 76 WI: 174 QRS: 95 T: 76 INTERPRETIVE STATEMENTS: Normal sinus rhythm Rightward axis Incomplete right bundle branch block Low voltage QRS Prolonged QT Abnormal ECG Compared to ECG 12/28/2017 08:41:47 Right-axis deviation now present Electronically Signed On 06-22-18 14:33:13 CDT by Rangel Navarro
--- NOTE | 2018-06-22 14:37 | RAD REPORT ---
EXAM DESCRIPTION: CT - Stone Protocol - 06/22/2018 2:15 pm CLINICAL HISTORY: Abdominal pain. Dysuria COMPARISON: None. TECHNIQUE: Computed axial tomography of the abdomen pelvis was obtained without oral or IV contrast. Lack of IV and oral contrast limits evaluation of solid organs, bowel, and vessels. Coronal reformat mega images were obtained and reviewed. All CT scans are performed using dose optimization technique as appropriate and may include automated exposure control or mA/KV adjustment according to patient size. FINDINGS: A renal calculus is not seen. An ureteral calculus is not noted. A bladder calculus is not present. The left kidney is small with cortical thinning. Mild right pyelocaliectasis is unchanged. The bladder is mildly distended The liver, spleen, pancreas and adrenals appear grossly normal There is no evidence of diverticulitis. Large abdominal wall hernia is unchanged. A there is no evide nce of a bowel obstruction IMPRESSION: Negative for a genitourinary calculus Mild bladder distention
--- NOTE | 2018-06-22 14:38 | RAD REPORT ---
EXAM DESCRIPTION: Martha Single View06/22/2018 1:36 pm CLINICAL HISTORY: Abdominal pain COMPARISON: December 2017 FINDINGS: The lungs appear clear of acute infiltrate. The heart is normal size. A central venous catheter remains in place IMPRESSION: No acute abnormalities displayed
[2018-06-22] MEDS ORDERED: predniSONE 20 MG TAB ONE (15:47)
[2018-06-22] MEDS: NA CHLORIDE 0.9% 1,000 ML IV SCH (15:56)
[2018-06-22 16:26] VITALS: BMI 48.7
[2018-06-22] MEDS: FENTANYL CITR 100 MCG/2 ML IV PRN ×2 (17:15→22:48)
[2018-06-22] MEDS: ONDANSETRON 4 MG/2 ML VIAL IV PRN ×2 (17:15→22:48)
[2018-06-22] MEDS ORDERED: HYDROCODONE/APAP 7.5/325 MG TAB PO PRN (18:35)
[2018-06-22] MEDS: SPIRONOLACTONE 100 MG TAB PO SCH (20:49)
[2018-06-22] MEDS: SOTALOL HCL 80 MG TAB PO SCH (20:49)
[2018-06-22] MEDS: Meropenem 1,000 MG in NA CHLORIDE 0.9% 100 ML IV SCH (20:49)
[2018-06-22] MEDS ORDERED: HOME MED 1 EA UNK (Spironolactone [Spironolactone] 50 MG) PO SCH (21:00)
[2018-06-22] MEDS ORDERED: SOTALOL HCL 120 MG PO SCH (21:00)
[2018-06-22] MEDS ORDERED: Meropenem 1000 MG/VIAL IV SCH (21:00)
[2018-06-23] MEDS: NA CHLORIDE 0.9% 1,000 ML IV SCH ×2 (00:45→09:20)
--- NOTE | 2018-06-23 01:46 | HP ---
Date of Admission: 06/22/2018 Chief Complaint: Urinary tract infection, vomiting, diarrhea. History Of Present Illness: A 57-year-old male patient with history of urethral stricture and has be en doing self-catheterization of his bladder at least 2 times a day for a long time with history of r ecurrent urinary tract infection, has been seeing urologist, Dr. Alvarez, in [place], and he started to pathak ve some dysuria, urinary frequency, urgency, type of symptom with chills, and on June 14, 2018, he pathak d urine culture done by his urologist and urine culture grew Citrobacter and he was started on nitrof urantoin. The patient says that he improved in the beginning after he started taking his nitrofurant oin, but in last few days, his urinary symptoms have started to get worse again with dysuria, flank p ain, and also started to have nausea, vomiting, and diarrhea. He is also having some chills. With t his complaints, his contacted me this morning, and his systolic blood pressure was in the range of 90, so it was advised that the patient to come to emergency room, and after he was evaluated, he w as admitted to the hospital. His urine culture results reviewed from June 14, 2018 and it is Citroba cter only oral antibiotic that this bacteria is sensitive to nitrofurantoin which the patient already has tried and has not responded. Three other antibiotics that it is sensitive to, they are IV antib iotics that include meropenem and Zosyn. Allergies: TO DEMEROL, REMICADE, AND LATEX. Medications: List reviewed. Review of Systems: Genitourinary: As mentioned above. Constitutional: As mentioned above. All other systems reviewed and negative. Social History: Negative for smoking or alcohol use. Family History: Not pertinent. Past Surgical History: Significant for abdominal wall abscess and surgery for that, incision and marlyn inage for that abscess. In the past, had surgery for a ventral hernia, knee surgery, and Port-A-Cath placement. Past Medical History: Significant for paroxysmal atrial fibrillation, sleep apnea, hypertension, [employer] disease, chronic steroid therapy, rheumatoid arthritis, ventral hernia, morbid obesity, urethral s tricture with recurrent urinary tract infections. Physical Examination: Vital Signs: Temperature 97.2, pulse 84, respiratory rate 18, blood pressure 125/62, oxygen saturati on 95%, height 6 feet 2 inches weight 380 pounds. General: Awake, alert, oriented, not in distress. HEENT: Head atraumatic, normocephalic. Conjunctivae nonerythematous. Sclerae white. Mouth, no thr ush or edema noted. Ears/Nose, no mass, lesion, discharge noted. Neck: Supple. No JVD, lymph nodes, bruit, thyromegaly noted. Lungs: Bilateral good equal air entry. Clear to auscultation. No rhonchi. No rales. Heart: Normal heart sounds, no murmur or gallop. Abdomen: The patient has right flank tenderness in the anterior flank region. Bowel sounds normoact jostin. No guarding or rigidity. No distention. No hepatosplenomegaly. No surgical scar present. Extremities: No leg edema. No calf tenderness. Skin: No rash, ulcer, cellulitis. Lymphatics: No lymph node enlargement in neck, supraclavicular, infraclavicular region. Neuro: No focal neurological deficit. Chest: Unremarkable. External Genitalia: Deferred. Rectal: Deferred. Laboratory Data: Chest x-ray; no acute cardiopulmonary changes. CAT scan of abdomen per kidney ston e protocol; no evidence of kidney stone, mild bladder distention noted, but it is important to note t hat just prior to CAT scan the patient had a straight cath done in the emergency room and his bladder was emptied. White count 9.3, hemoglobin 13.4, platelets 263. Procalcitonin less than 0.05. Lacta te acid level 2.5. Troponin less than 0.02. Sodium 140, potassium 3.6, chloride 105, bicarb 32, BUN 18, creatinine 1, glucose 150. Liver function tests unremarkable. Lipase 141. Urinalysis; positiv e for nitrite, esterase 1+. Impression: 1.Urinary tract infection. 2.Paroxysmal atrial fibrillation. 3.Chronic anticoagulation therapy. 4.Chronic steroid therapy. 5.Urethral stricture. 6.Rheumatoid arthritis. 7.Crohn disease. 8.Gastroesophageal reflux disease. 9.Sleep apnea. 10.Hypertension. Plan: Admit the patient to hospital for further evaluation and management of this problem. The della ent is appropriate for inpatient and he is expected to spend 2 midnights in hospital. We will go ahe ad and continue home medications including Xarelto. Continue IV antibiotics. He is currently on sonia openem. We will continue that. A repeat urine culture was done today. We will follow up on that re sult and then we will make final decision about antibiotics depending on the urine culture results. In the past, he has required IV antibiotics, so obviously decision will depend on the final urine res ults from this time. Details and plan of treatment discussed with him. JORDAN/KENDALL Voice ID: [id number]
[2018-06-23] MEDS: FENTANYL CITR 100 MCG/2 ML IV PRN ×5 (02:57→20:25)
[2018-06-23 04:53] LABS: Absolute Lymphocytes (CBC) 2.6 K/uL (0.7-4.9); Absolute Monocytes 0.8 K/uL (0.1-1.3); Absolute Neutrophil 5.3 K/uL (1.8-8.0); Basophils % 0.8 % (0-1.3); Eosinophils % 0.6 % (0-4.4); Hematocrit 35.6 % (39.6-49.0); Lymphocytes % 29.1 % (15.3-44.8); MCH 31.9 pg (27.0-35.0); MCV 94.7 fL (80-100); MPV 8.5 fL (7.6-11.3); Monocytes % 9.6 % (3.3-12.3); RBC Red Blood Cell Count 3.76 M/uL (4.33-5.43)
[2018-06-23] MEDS: ONDANSETRON 4 MG/2 ML VIAL IV PRN ×2 (06:40→16:40)
[2018-06-23] MEDS ORDERED: predniSONE 5 MG TAB PO SCH (09:00)
[2018-06-23] MEDS ORDERED: DULOXETINE HCL PO SCH (09:00)
[2018-06-23] MEDS: SPIRONOLACTONE 100 MG TAB PO SCH ×2 (09:15→20:22)
[2018-06-23] MEDS: CHLORTHALIDONE 25 MG TAB PO SCH (09:16)
[2018-06-23] MEDS: ARIPiprazole 5 MG TAB PO SCH (09:16)
[2018-06-23] MEDS: TAMSULOSIN 0.4 MG SR CAP PO SCH (09:17)
[2018-06-23] MEDS: DULOXETINE 30 MG CAP PO SCH (09:17)
[2018-06-23] MEDS: acetaZOLAMIDE 250 MG TAB PO SCH (09:17)
[2018-06-23] MEDS: RIVAROXABAN 15 MG TABLET PO SCH (09:17)
[2018-06-23] MEDS: SOTALOL HCL 80 MG TAB PO SCH ×2 (09:18→20:22)
[2018-06-23] MEDS: FOLIC ACID 1 MG TABLET PO SCH (09:19)
[2018-06-23] MEDS: Meropenem 1,000 MG in NA CHLORIDE 0.9% 100 ML IV SCH ×2 (09:19→20:22)
[2018-06-23] MEDS: PROMETHAZINE 25 MG TABLET PO PRN (12:34)
--- NOTE | 2018-06-23 12:47 | EKG ---
Test Date: 2018-06-23 Test Time: 07:27:42 Car Carder: KENNEDY MEASUREMENT RESULTS: Intervals: Rate: 78 NC: 164 QRSD: 96 QT: 400 QTc: 456 [place]: P: 40 NC: 164 QRS: 78 T: 64 INTERPRETIVE STATEMENTS: Normal sinus rhythm Low voltage QRS Incomplete right bundle branch block Septal infarct, age undetermined Abnormal ECG Compared to ECG 06/22/2018 13:25:19 Myocardial infarct finding now present Right-axis deviation no longer present Prolonged QT interval no longer present Electronically Signed On 06-23-18 12:46:57 CDT by Rangel Navarro
[2018-06-24] MEDS: METHYLPREDNISOLONE 125 MG INJ IV SCH ×4 (00:03→17:10)
--- NOTE | 2018-06-24 00:46 | PN ---
Date of Progress Note: 06/23/2018 Subjective: The patient was seen this morning for followup. No new complaints or problems reported by him. Has some nausea, but no vomiting, no diarrhea overnight. Objective: Vital Signs: Reviewed. HEENT: Unremarkable. Lungs: Clear to auscultation. Heart: Sounds normal. Abdomen: Soft. Bowel sounds normal. No guarding, rigidity, tenderness, or distention. Extremities: No leg edema. Laboratory Data: White count 8.8, hemoglobin 12, platelets 254. Sodium 142, potassium 4, chloride 1 09, bicarb 30, BUN 18, creatinine 1, glucose 157. Troponin less than 0.02. Impression: 1.Urinary tract infection. 2.Paroxysmal atrial fibrillation. 3.Hypertension. 4.Rheumatoid arthritis. 5.Crohn disease. Plan: We will continue current medication. Continue current prednisone, antibiotics. Urine culture , blood culture results pending and we will reduce IV fluid rate to 30 cc/hour and we will continue I V meropenem until we get the final results back on the urine culture and then we will decide which pa rticular antibiotic to use upon discharge. Details and plan of treatment were discussed with him. JORDAN/MODVikas Voice ID: [id number] Report ID: [id number]
[2018-06-24] MEDS: FENTANYL CITR 100 MCG/2 ML IV PRN ×4 (03:11→20:16)
[2018-06-24] MEDS: PROMETHAZINE 25 MG TABLET PO PRN ×3 (03:12→16:22)
[2018-06-24] MEDS: Meropenem 1,000 MG in NA CHLORIDE 0.9% 100 ML IV SCH ×2 (08:37→21:49)
[2018-06-24] MEDS: CHLORTHALIDONE 25 MG TAB PO SCH (08:37)
[2018-06-24] MEDS: ARIPiprazole 5 MG TAB PO SCH (08:37)
[2018-06-24] MEDS: SOTALOL HCL 80 MG TAB PO SCH ×2 (08:38→21:49)
[2018-06-24] MEDS: acetaZOLAMIDE 250 MG TAB PO SCH (08:38)
[2018-06-24] MEDS: SPIRONOLACTONE 100 MG TAB PO SCH ×2 (08:39→21:49)
[2018-06-24] MEDS: RIVAROXABAN 15 MG TABLET PO SCH (08:40)
[2018-06-24] MEDS: DULOXETINE 30 MG CAP PO SCH (08:40)
[2018-06-24] MEDS: TAMSULOSIN 0.4 MG SR CAP PO SCH (09:00)
[2018-06-24] MEDS: FOLIC ACID 1 MG TABLET PO SCH (09:00)
[2018-06-24] MEDS: ONDANSETRON 4 MG/2 ML VIAL IV PRN ×2 (14:13→20:17)
[2018-06-24] MEDS: NA CHLORIDE 0.9% 1,000 ML IV SCH (18:20)
--- NOTE | 2018-06-25 00:22 | PN ---
Date of Progress Note: 06/24/2018 Subjective: The patient was seen this morning for followup. He was lying in bed, not in any distres s. No new complaints or problems reported by him this morning, but last night the nurse contacted me and informed me that the patient wants diaphoretic, was feeling very weak, and his blood pressure wa s low, systolic blood pressure was between 70-80, and at that time IV fluid normal saline bolus 250 c c x2 was ordered, and he was started on IV Solu-Medrol, and with this, his blood pressure came up, an d the patient says that after IV fluid bolus and Solu-Medrol, he immediately started feeling better a nd did not have any further complaints overnight. Objective: Vital Signs: Reviewed. HEENT: Unremarkable Lungs: Clear to auscultation. No rhonchi or rales. Heart: Sounds normal. Abdomen: Soft. Bowel sounds normal. No guarding, rigidity, tenderness, or distention. Extremities : No leg edema. Laboratory Data: Urine culture grew Citrobacter and it is sensitive to Zosyn and meropenem and the p atallan currently is on meropenem. Impression: 1.Urinary tract infection. 2.Adrenal insufficiency. 3.Chronic steroid therapy. 4.Paroxysmal atrial fibrillation. Plan: We will go ahead and continue current IV steroids, discontinue oral steroid, and lately he has been taking prednisone 5 mg most of the time, sometimes he takes 10 mg. I have advised him that pro bably starting tomorrow, we will discontinue IV steroid and post exchange manager to oral steroid, but I do not want him to go any lower than 10 mg steroid as a maintenance dose in view of what happened last [facility] Social Service was consulted to help make arrangements for home IV antibiotics for 10 days using meropenem 1000 mg every 12 hours. I will see him tomorrow for followup . JORDAN/MODL Voice ID: [id number] Report ID: [id number]
[2018-06-25] MEDS: METHYLPREDNISOLONE 125 MG INJ IV SCH ×5 (01:00→23:04)
[2018-06-25] MEDS: ONDANSETRON 4 MG/2 ML VIAL IV PRN ×2 (02:15→08:42)
[2018-06-25] MEDS: FENTANYL CITR 100 MCG/2 ML IV PRN ×3 (02:23→12:50)
[2018-06-25] MEDS: PROMETHAZINE 25 MG TABLET PO PRN ×2 (03:59→12:51)
[2018-06-25] MEDS: RIVAROXABAN 15 MG TABLET PO SCH (08:40)
[2018-06-25] MEDS: FOLIC ACID 1 MG TABLET PO SCH (08:41)
[2018-06-25] MEDS: SOTALOL HCL 80 MG TAB PO SCH ×2 (08:41→23:03)
[2018-06-25] MEDS: acetaZOLAMIDE 250 MG TAB PO SCH (08:41)
[2018-06-25] MEDS: TAMSULOSIN 0.4 MG SR CAP PO SCH (08:41)
[2018-06-25] MEDS: DULOXETINE 30 MG CAP PO SCH (08:41)
[2018-06-25] MEDS: SPIRONOLACTONE 100 MG TAB PO SCH ×2 (08:43→23:02)
[2018-06-25] MEDS: Meropenem 1,000 MG in NA CHLORIDE 0.9% 100 ML IV SCH ×2 (08:44→23:04)
[2018-06-25] MEDS: CHLORTHALIDONE 25 MG TAB PO SCH (08:44)
[2018-06-25] MEDS: ARIPiprazole 5 MG TAB PO SCH (08:44)
--- NOTE | 2018-06-25 11:50 | DS ---
Date of Discharge: 06/25/2018 Disposition: Discharged to go home. Physical Examination: HEENT: Unremarkable. Lungs: Clear to auscultation. Heart: Sounds normal. Abdomen: Soft bowel sounds normal. No guarding, rigidity, tenderness, distention. Extremities: No leg edema. Discharge Medications And Instructions: 1.Continue all prior home medication except change prednisone. The patient to take 20 mg p.o. daily for 1 week and then 10 mg p.o. daily to continue. 2.IV meropenem 1000 mg IV piggyback every 12 hours for 10 days. 3.CBC and Chem-7 every third day while on IV antibiotics. Hospital Course: This is 57-year-old male patient admitted to the hospital with urinary tract infect ion, vomiting, diarrhea. Please see dictated H and P for more information. The patient sees his uro logist, Dr. Alvarez on a regular basis. Recently on June 14, 2018, he had urinalysis and urine culture do nd and it grew Citrobacter and Dr. Alvarez started him on nitrofurantoin. This was the only antibiotic in oral form that this bacteria was sensitive to, otherwise 3 other antibiotics it was sensitive to IV antibiotics. The patient started this antibiotic. Initially he got better but then his symptoms did not improve at all and he was having flank pain, abdominal pain, as well as vomiting and diarrhea and blood pressure was low at home so he was brought into emergency room. After he was evaluated in the ER, he was admitted to the hospital. Blood culture was done. Urine culture was done in the emergen cy room and he was started on IV meropenem according to sensitivity results from June 14, 2018. Bloo d culture remained negative. Urine culture once again grew Citrobacter and bacteria is sensitive to meropenem and Zosyn but it is resistant to nitrofurantoin now. The patient has been on meropenem sin ce the time of admission. Yesterday, Social Service consultation was requested to help make arrangem ents for IV antibiotics, meropenem to be given at home for 10 days and arrangements by Social Service has been completed for this, so the patient will be able to go home today. He has Port-A-Cath that he uses that for his IV antibiotic therapy. The night before last, his systolic blood pressure was l ow in range between 70-80. He responded very well to IV Solu-Medrol and IV fluid bolus. Overall, hi s other medical problems have remained stable. Laboratory Data: Labs done during this hospitalization. Chest x-ray, no acute pulmonary changes. C AT scan of abdomen and pelvis, no evidence of kidney stone. His white count when he came in was 9.3, hemoglobin 13.4, platelets 263. Procalcitonin less than 0.05. Lactic acid level was 2.5. Troponin less than 0.02. Sodium 140, potassium 3.6, chloride 105 bicarb 32, BUN 18, creatinine 1, glucose 15 0. Liver function tests were unremarkable. Final Diagnoses: 1.Urinary tract infection. 2.Hypotension. 3.Paroxysmal atrial fibrillation. 4.Chronic anticoagulation therapy. 5.Chronic steroid therapy. 6.Urethral stricture. 7.Rheumatoid arthritis. 8.Crohn disease. 9.Gastroesophageal reflux disease. 10.Sleep apnea. 11.Hypertension. JORDAN/MODL Voice ID: [id number] Report ID: [id number]
[2018-06-25] MEDS ORDERED: METOPROLOL TARTRATE 5 MG/5 ML INJ IV STA ×3 (17:35→18:49)
[2018-06-25] MEDS ORDERED: ENOXAPARIN 60 MG/0.6 ML SQ ONE (19:23)
[2018-06-25] MEDS ORDERED: MIDAZOLAM HCL 2 MG/2 ML INJ ONE ×2 (20:02→21:26)
[2018-06-25] MEDS ORDERED: FLUMAZENIL 0.1 MG/ML (5 mL VIAL) IV ONE (20:02)
[2018-06-25] MEDS: NA CHLORIDE 0.9% 1,000 ML IV SCH (20:26)
[2018-06-25 20:45] LABS: Magnesium 2.4 mg/dL (1.8-2.4); Potassium 3.7 mmol/L (3.5-5.1)
[2018-06-25] MEDS ORDERED: FENTANYL CITR 100 MCG/2 ML IV ONE (21:25)
[2018-06-25] MEDS ORDERED: MIDAZOLAM HCL 2 MG/2 ML INJ IV ONE (21:25)
[2018-06-25] MEDS ORDERED: FENTANYL CITR 100 MCG/2 ML ONE (21:27)
[2018-06-25] MEDS ORDERED: MIDAZOLAM HCL 2 MG/2 ML INJ IV STA (21:29)
--- NOTE | 2018-06-25 22:18 | OP ---
Surgeon: Rangel Navarro MD Procedure: Direct current cardioversion. Indication: Atrial fibrillation with hypotension refractory to medicines. Procedure In Detail: The patient was placed in the ICU n.p.o. He was given an extra dose of Lovenox because he had basically been underdosed on his Xarelto. He received 60 mg about an hour after brianna g into atrial fibrillation. He has been in sinus rhythm for years before this. He was sedated with 50 mg of fentanyl and 7.5 mg of Versed IV. Anterior-posterior paddles were placed on his chest. A s ynchronized shock 300 joules was given. This resulted in sinus rhythm. No complications from the pr ocedure. LUIS F/MODVikas Voice ID: [id number] Report ID: [id number]
--- NOTE | 2018-06-25 23:00 | CON ---
Reason For Consultation: Atrial fib. 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 He has been on sotalol and Xarelto. The Xarelto dose is probably underdosing. He has been given 15 mg a day. His creatinine clearance would suggest it should be 20, so he is not fully anticoagulated. He has been in sinus rhythm until about 6 o'clock today. He was eating and went into atrial fibrillation. His h eart rates in the 150s to 130s. He has been receiving doses of IV Lopressor. His blood pressure has gone down. His heart rate has not gone down. 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 He has a ventral hernia that has been unrepairable. He does not have diabetes or dyslipidemia. He gets numerous urinary tract infections. He has prostate troub le with prostate hypertrophy and urinary flow compromise. Medications: Outpatient medications have been Flomax, spironolactone, rivaroxaban, prednisone, dulox etine, chlorthalidone, promethazine, acetazolamide, aripiprazole, sotalol 120 b.i.d., folic acid, hyd rocodone with acetaminophen. Physical Examination: Vital Signs: He is 6 feet 2 inches, 380 pounds. Heart rate 145, blood pressure 92/72. General: Alert, oriented, pleasant. He is not in distress. He feels uncomfortable. Lungs: Revealed equal breath sounds bilaterally. Extremities: Mild edema. Laboratory Data: Reveals a creatinine of 1.0, estimated GFR 77, calcium level is 8. Procalcitonin l evel is less than 0.05-he has urine culture showing Citrobacter freundii complex. It is a multiple d rug-resistant organism, and hence he is being treated with Merrem. Apparently, it is sensitive to me ropenem, piperacillin with tazobactam, and 1 other antibiotic. I think it may be cefotaxime. Impression: The patient is hemodynamically compromised, uncomfortable from his atrial fibrillation. I do not want to give any more beta blockers than he has had because he has been underdosed on rivar oxaban. We want to increase the dose. We will give 60 of Lovenox right now, transfer into the ICU. In a couple hours when his stomach is empty, we will do a cardioversion. The patient seems to under stand the procedure, potential benefits, indications, risks, and agrees to proceed. LUIS F/KENDALL Voice ID: [id number] Report ID: [id number]
[2018-06-26] MEDS: FENTANYL CITR 100 MCG/2 ML IV PRN ×5 (02:38→17:29)
[2018-06-26] MEDS: ONDANSETRON 4 MG/2 ML VIAL IV PRN ×3 (02:52→16:13)
[2018-06-26] MEDS: METHYLPREDNISOLONE 125 MG INJ IV SCH (06:17)
[2018-06-26] MEDS ORDERED: predniSONE 20 MG TAB PO SCH (09:00)
[2018-06-26] MEDS: SPIRONOLACTONE 100 MG TAB PO SCH (09:00)
[2018-06-26] MEDS: SOTALOL HCL 80 MG TAB PO SCH (09:46)
[2018-06-26] MEDS: DULOXETINE 30 MG CAP PO SCH (09:46)
[2018-06-26] MEDS: ARIPiprazole 5 MG TAB PO SCH (09:47)
[2018-06-26] MEDS: FOLIC ACID 1 MG TABLET PO SCH (09:47)
[2018-06-26] MEDS: CHLORTHALIDONE 25 MG TAB PO SCH (09:47)
[2018-06-26] MEDS: Meropenem 1,000 MG in NA CHLORIDE 0.9% 100 ML IV SCH (09:48)
[2018-06-26] MEDS: TAMSULOSIN 0.4 MG SR CAP PO SCH (09:48)
[2018-06-26] MEDS: acetaZOLAMIDE 250 MG TAB PO SCH (09:48)
[2018-06-26] MEDS ORDERED: SPIRONOLACTONE 25 MG TABLET PO SCH (10:00)
--- NOTE | 2018-06-26 10:32 | EKG ---
Test Date: 2018-06-25 Test Time: 21:34:20 Medical Registrar: RT-O MEASUREMENT RESULTS: Intervals: Rate: 90 VA: 174 QRSD: 98 QT: 374 QTc: 457 [place]: P: 65 VA: 174 QRS: 62 T: 38 INTERPRETIVE STATEMENTS: Normal sinus rhythm Low voltage QRS Incomplete right bundle branch block Abnormal ECG Compared to ECG 06/25/2018 17:01:26 Incomplete right bundle-branch block now present Atrial fibrillation no longer present Ventricular premature complex(es) no longer present Electronically Signed On 06-26-18 10:31:44 CDT by Rangel Navarro
--- NOTE | 2018-06-26 10:38 | EKG ---
Test Date: 2018-06-25 Test Time: 17:01:26 Vice President Talent Management: JAMEEL MEASUREMENT RESULTS: Intervals: Rate: 135 [place]: QRSD: 88 QT: 312 QTc: 468 [place]: P: [place]: QRS: 66 T: 2 INTERPRETIVE STATEMENTS: Atrial fibrillation with rapid ventricular response Low voltage QRS Incomplete right bundle branch block Abnormal ECG Compared to ECG 06/23/2018 07:27:42 Sinus rhythm no longer present Electronically Signed On 06-26-18 10:37:54 CDT by Rangel Navarro
[2018-06-26] MEDS: PROMETHAZINE 25 MG TABLET PO PRN (12:15)
--- NOTE | 2018-06-26 13:51 | PN ---
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 Alert, oriented, and feels well. I recommend that he be disch arged. His recommended Xarelto dose is 20 mg once a day at supper and recommended Betapace dose is 1 20 b.i.d. Other medications according to Dr. Tubbs's orders. LUIS F/KENDALL Voice ID: [id number] Report ID: [id number]
[2018-06-26] MEDS ORDERED: PANTOPRAZOLE 40MG TABLET PO ONE (14:44)
[2018-06-26 16:30] VITALS: O2SAT 95
[2018-06-26] MEDS ORDERED: RIVAROXABAN 20 MG TABLET PO SCH (17:00)
[2018-06-26 17:23] VITALS: TEMP 98.5
[2018-06-26 18:59] VITALS: BP 115/71
== END 2018-06-26 18:45 | disposition home health service (06) | DRG 690 ==
LOC: ER 12:35 → ERHOLD 14:14 → 4TH 15:33 → 3RD-ICU 06-25 19:47
PROVIDERS: ADMIT Internal Medicine; ATTEND Internal Medicine
PROC: 5A2204Z Restoration of Cardiac Rhythm, Single (ICD-10-PCS; principal; 2018-06-25)
DX: N39.0 Urinary tract infection, site not specified (principal); K50.90 Crohn's disease, unspecified, without complications; E27.40 Unspecified adrenocortical insufficiency; Z68.42 Body mass index [BMI] 45.0-49.9, adult; I48.0 Paroxysmal atrial fibrillation; I10 Essential (primary) hypertension; I95.9 Hypotension, unspecified; N35.9 Urethral stricture, unspecified; B96.89 Other specified bacterial agents as the cause of diseases classified elsewhere; K21.9 Gastro-esophageal reflux disease without esophagitis; M06.9 Rheumatoid arthritis, unspecified; G47.30 Sleep apnea, unspecified; E66.01 Morbid (severe) obesity due to excess calories; Z79.01 Long term (current) use of anticoagulants; Z79.52 Long term (current) use of systemic steroids; Z16.24 Resistance to multiple antibiotics; Z88.5 Allergy status to narcotic agent; Z88.8 Allergy status to other drugs, medicaments and biological substances; Z91.040 Latex allergy status
CPT/HCPCS: 36415; 71045; 74176; 76377; 80048; 80076; 81003; 82550; 82553; 83605; 83690; 83735; 83880; 84145; 84484; 85025; 85610; 85730; 86850; 86900; 86901; 87040; 87077; 87086; 87088; 87186; 93005; 96361; 96365; 96375; 99285; J0696; J1650; J2185; J2250; J2405; J2550; J2930; J3010; J7030; J7512

== ENCOUNTER 2018-07-30 21:05 | Inpatient (IN) | payer OTHER ==
--- OUTSIDE RECORDS SUMMARY | 2018-07-30 21:07 | XMS REPORT | Clinical Summary ---
:1960 Author Organization [facility] Address [address] [place] [address] Care Team Providers Name Role Phone Asked, [...] tablet morning. tamsulosin (FLOMAX) Take 0.4 mg Active 0.4 mg by mouth capsule,extended every release 24hr morning. DULOXETINE HCL Take 60 mg by Active (CYMBALTA ORAL) mouth every morning. Takes two of the 60mg in the morning rivaroxaban Take 15 mg by Active (XARELTO) tablet mouth every morning. multivitamin capsule Take 1 Active capsule by mouth daily. ferrous sulfate Take 325 mg Active (IRON) 325 (65 FE) by mouth MG tablet daily. ascorbic acid, Take 500 mg Active vitamin C, (ascorbic by mouth acid with philip hips) daily. 500 MG tablet sotalol (BETAPACE) Take 120 mg Active 120 MG tablet by mouth 2 (two) times a day. chlorthalidone Take 25 mg by Active (HYGROTEN) 25 MG mouth every tablet morning. spironolactone Take 50 mg by Active (ALDACTONE) 50 MG mouth 2 (two) tablet times a day. acetaZOLAMIDE Take 250 mg Active (DIAMOX) 250 MG by mouth tablet every morning. ANAKINRA (KINERET Inject 100 mg Active SUBQ) under the skin daily. omeprazole TAKE 1 90 capsule 2 10/25/2017 Active (PriLOSEC) 20 MG CAPSULE (20 capsule MG TOTAL) BY MOUTH DAILY FOR 180 DAYS. sulfaSALAzine Take 500 mg Discontinued (AZULFIDINE) 500 mg by mouth 2 7 tablet (two) times a day. Takes 2 tabs of the 500mg BID omeprazole Take 1 90 capsule 1 04/02/2017 Discontinued (PriLOSEC) 20 MG capsule (20 7 capsule mg total) by mouth daily for 180 days. Active Problems Problem Noted Date Obstructive sleep apnea 03/10/2018 Ventral incisional hernia without obstruction or gangrene 03/10/2018 History of primary testicular cancer 03/10/2018 Gastroesophageal reflux disease without esophagitis 03/10/2018 History of atrial fibrillation 03/10/2018 Status post ablation of atrial fibrillation 03/10/2018 Essential hypertension 03/10/2018 Personal history of pulmonary embolism 03/10/2018 History of deep vein thrombosis 03/10/2018 Status post small bowel resection 03/10/2018 Status post repair of recurrent ventral hernia 03/10/2018 Rheumatoid arthritis 03/10/2018 Status post total knee replacement, left 03/10/2018 Urethral stricture 05/26/2017 Overview: on tamsulosin Acute cystitis without hematuria 05/26/2017 Morbid obesity with BMI of 45.0-49.9, adult 04/01/2017 S/P laparoscopic sleeve gastrectomy 03/31/2017 Encounters Date Type Specialty Care Team Description 03/09/2018 Office Visit General Surgery Yo Khan Morbid obesity with BMI of 45.0-49.9, adult (Primary Dx); MD Antoine Obstructive sleep apnea; S/P laparoscopic sleeve gastrectomy 11/05/2017 Hospital Encounter Radiology Yo Khan MD 11/05/2017 Hospital Encounter Radiology Yo Khan MD 11/05/2017 Hospital Encounter Radiology Yo Khan MD 11/05/2017 Hospital Encounter Radiology Yo Khan MD 11/05/2017 Office Visit General Surgery Sd Torres S/P laparoscopic sleeve gastrectomy (Primary Dx); CANDELARIO Alicia Morbid obesity with BMI of 45.0-49.9, adult 11/05/2017 Ancillary Orders Radiology Yo Khan MD 10/24/2017 Refill General Surgery Jackelin Nguyễn PA after 07/29/2017 Family History Medical History Relation Name Comments [...] Vital Sign Reading Time Taken Blood Pressure 98/56 03/09/2018 1:52 PM CDT Pulse 79 03/09/2018 1:52 PM CDT Temperature 36.6 C (97.9 F) 03/09/2018 1:52 PM CDT Respiratory Rate 16 03/09/2018 1:52 PM CDT Oxygen Saturation - - Inhaled Oxygen Concentration - - Weight 174 kg (382 lb 12.8 oz) 03/09/2018 1:52 PM CDT Height 188 cm (6' 2") 03/09/2018 1:52 PM CDT Body Mass Index 49.15 03/09/2018 1:52 PM CDT Plan of Treatment Health Maintenance Due Date Last Done Comments SHINGRIX VACCINE (#1) 2011 INFLUENZA VACCINE 06/22/2018 COLON CANCER SCREENING 03/05/2026 03/05/2016 Results Not on fileafter 07/29/2017 Insurance Payer Benefit Plan / Group Subscriber ID Type Phone Address COMMERCIAL M[employer] MISC COMMERCIAL xxxxxxxxxxx Commercial MEDICARE MEDICARE PART A AND B xxxxxxxxxx Medicare [facility] xxxxxxxxxxx Commercial [phone] [place] [id number]
[2018-07-30] MEDS ORDERED: FENTANYL CITR 100 MCG/2 ML ONE (21:26)
[2018-07-30] MEDS ORDERED: PROMETHAZINE 25 MG/ML VIAL ONE (21:26)
[2018-07-30] MEDS ORDERED: NA CHLORIDE 0.9% 1,000 ML ONE ×3 (21:27→23:46)
[2018-07-30] MEDS ORDERED: Levofloxacin 750mg IV 750 MG/150 ML BAG IV ONE (21:47)
[2018-07-30] MEDS ORDERED: DEXAMETHASONE 4 MG/ML VIAL ONE (21:47)
[2018-07-30] MEDS ORDERED: PIPER/TAZO/NS 3.375gm 3.375 GM/100 ML BAG ONE (21:47)
[2018-07-30] MEDS ORDERED: VANCOMYCIN 1 GM/250 ML BAG ONE (21:47)
[2018-07-30 21:57] LABS: Absolute Lymphocytes (CBC) 0.9 K/uL (0.7-4.9); Absolute Monocytes 2.1 K/uL (0.1-1.3); Absolute Neutrophil 12.3 K/uL (1.8-8.0); Basophils % 0.5 % (0-1.3); Eosinophils % 0.1 % (0-4.4); Hematocrit 36.2 % (39.6-49.0); MCH 32.7 pg (27.0-35.0); MCV 95.2 fL (80-100); MPV 8.6 fL (7.6-11.3); Monocytes % 13.4 % (3.3-12.3)
[2018-07-30 22:07] LABS: Urine Blood 2+ (NEG); Urine Glucose NEGATIVE (NEG); Urine Protein TRACE (NEG); Urine Specific Gravity 1.015 (1.005-1.030)
[2018-07-30 22:25] LABS: ALT/SGPT 22 U/L (12-78); AST/SGOT 10 U/L (15-37); Albumin 3.2 g/dL (3.4-5.0); Alkaline Phosphatase 93 U/L (45-117); BUN Blood Urea Nitrogen 28 mg/dL (7-18); Bicarbonate 26 mmol/L (21-32); Bilirubin Total 0.7 mg/dL (0.2-1.0); Glucose Level 122 mg/dL (74-106); Lipase 136 U/L (73-393); Potassium 3.5 mmol/L (3.5-5.1); Protein, Total 6.5 g/dL (6.4-8.2); Sodium Level 137 mmol/L (136-145); Troponin (Emerg Dept Use Only) < 0.02 ng/mL (0.0-0.045)
[2018-07-30 22:38] LABS: Blood Morphology Comment NOT SEEN (NOT SEEN); Platelet Estimate ADEQ
[2018-07-30 22:40] LABS: Urine Bacteria LOADED /HPF (NONE SEEN); Urine Culture Reflex Order NOT NEEDED; Urine RBC <5 /HPF (NONE SEEN)
[2018-07-30] MEDS ORDERED: NOREPINEPHRINE 4mg/D5W 250mL 4 MG/250 ML BAG IV ONE (23:04)
[2018-07-30] MEDS ORDERED: ONDANSETRON 4 MG/2 ML VIAL ONE (23:27)
[2018-07-30] MEDS ORDERED: GENTAMICIN 80 MG/100 ML BAG 80 MG/100 ML BAG IV ONE (23:53)
--- NOTE | 2018-07-31 01:27 | ER ---
Nurse's Notes [facility] Name: Husam Vela Age: 57 yrs Sex: Male : 1960 Arrival Date: 07/30/2018 Time: 21:06 Bed 24 Private MD: Yuliana Tubbs C Diagnosis: acute cystitis with hematuria;Sepsis;Hypotension Presentation: 07/30 21:15 Presenting complaint: Patient states: I have been diaphoretic and tachycardic in the la1 140s at home. Transition of care: patient was not received from another setting of care. Onset of symptoms was July 30, 2018. Risk Assessment: Do you want to hurt yourself or someone else? Patient reports no desire to harm self or others. Initial Sepsis Screen: Does the patient meet any 2 criteria? Mean Arterial Pressure (MAP) < 65. HR > 90 bpm. Yes Does the patient have a suspected source of infection? No. Patient's initial sepsis screen is negative. Care prior to arrival: None. 21:15 Method Of Arrival: Wheelchair la1 21:15 Acuity: CECI 2 la1 Historical: - Allergies: 21:24 Demerol; la1 21:24 Latex, Natural Rubber; la1 21:24 Remicade; la1 - Home Meds: 21:24 Abilify 5 mg Oral tab 1 tab once daily [Active]; anakinra subcutaneous once daily la1 [Active]; chlorthalidone 25 mg Oral tab 1 tab once daily [Active]; Cymbalta 60 mg Oral cpDR 2 caps once daily [Active]; Flomax 0.4 mg Oral cp24 1 cap once daily [Active]; [place] 7.5-325 mg Oral tab 1 tab every 6 hours [Active]; prednisone 5 mg Oral tab 1 tab once daily [Active]; Protonix 40 mg Oral TbEC 1 tab once daily [Active]; sotalol 80 mg Oral tab 1 tab 2 times per day [Active]; spironolactone 50 mg Oral tab 1 tab 2 times per day [Active]; Xarelto 20 mg Oral tab 1 tab once daily [Active]; - PMHx: 21:24 Atrial Fib; heart ablassion; Hypertension; 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 - Social history:: Smoking status: unknown. - Ebola Screening: : No symptoms or risks identified at this time. Screenin:17 Abuse screen: Denies threats or abuse. Nutritional screening: No deficits noted. la1 Tuberculosis screening: No symptoms or risk factors identified. Fall Risk None identified. Sepsis Screening:. Assessment: 21:18 General: Appears ill, Behavior is cooperative. Pain:. Neuro: Level of Consciousness is la1 awake, alert, obeys commands, Oriented to person, place, time, situation, Facial symmetry appears normal, Pupils are PERRLA. Cardiovascular: Capillary refill < 3 seconds. Respiratory: Reports shortness of breath Airway is patent Respiratory effort is even, unlabored, Respiratory pattern is regular, symmetrical, Breath sounds are clear bilaterally. GI: Abdomen is obese, Bowel sounds present X 4 quads. Abd is soft X 4 quads. : Denies burning with urination, inability to void, urinary frequency. Derm: Skin is diaphoretic. 23:11 Reassessment: Patient appears in no apparent distress at this time. No changes from la1 previously documented assessment. Patient and/or family updated on plan of care and expected duration. Pain level reassessed. 23:43 Respiratory: Airway is patent Respiratory effort is even, unlabored, Respiratory la1 pattern is regular, symmetrical, Breath sounds are clear bilaterally. 07/31 00:38 Reassessment: Patient appears in no apparent distress at this time. No changes from la1 previously documented assessment. Patient and/or family updated on plan of care and expected duration. Pain level reassessed. Respiratory: Airway is patent Respiratory effort is even, unlabored, Respiratory pattern is regular, symmetrical, Breath sounds are clear bilaterally. Vital Signs: 07/30 21:16 BP 72 / 31; Pulse 106; Resp 20; Temp 99.0(O); Pulse Ox 94% on R/A; Weight 174.63 kg; la1 Height 6 ft. 2 in. (187.96 cm); 22:18 BP 77 / 48; Pulse 95; Resp 16; Pulse Ox 96% on R/A; la1 23:11 BP 93 / 50; Pulse 88; Resp 16; Pulse Ox 94% on R/A; la1 23:34 BP 84 / 46; Pulse 85; Resp 16; Pulse Ox 94% on R/A; la1 23:43 BP 92 / 59; Pulse 83; Resp 18; Pulse Ox 96% on 2 lpm NC; la1 07/31 00:00 BP 92 / 56; Pulse 86; Resp 20; Pulse Ox 96% on 2 lpm NC; la1 00:15 BP 99 / 55; Pulse 86; Resp 20; Temp 98.8(O); Pulse Ox 96% on 2 lpm NC; la1 00:36 BP 103 / 56; Pulse 86; Resp 16; Pulse Ox 95% on 2 lpm NC; la1 01:00 BP 106 / 61; Pulse 86; Pulse Ox 95% on R/A; rv 01:30 BP 99 / 59; Pulse 85; Pulse Ox 97% ; rv 07/30 21:16 Body Mass Index 49.43 (174.63 kg, 187.96 cm) la1 ED Course: 07/30 21:06 Patient arrived in ED. es 21:06 Yuliana Tubbs MD is Private Physician. es 21:11 Hardik Ford MD is Attending Physician. ps1 21:15 Gustavo Vásquez, RN is Primary Nurse. la1 21:16 Triage completed. la1 21:17 Arm band placed on right wrist. la1 21:17 Placed in gown. Bed in low position. Call light in reach. surveillance monitor on. Pulse ox la1 on. NIBP on. 21:17 Accessed Port-a-Cath. using accessed w/ # 20 Harris needle, Clean \T\ dry. Good blood la1 return. Flushes easily. 21:55 Second set of blood cultures drawn left arm via 21-gauge butterfly needle. jp3 22:01 Chest Single View XRAY In Process Unspecified. EDMS 22:16 Diet: Patient given ice chips. jp3 22:16 Urine collected: clean catch specimen, clear, cal colored. jp3 22:31 Notified ED physician of a critical lab result(s). lactate of 2.3. fc 22:35 EKG done, by ED staff, reviewed by Hardik Ford MD. jp3 22:36 Urine Culture Sent. jp3 22:36 Urine Microscopic Only Sent. jp3 22:36 Blood Culture Adult (2) Sent. jp3 23:33 Inserted saline lock: 22 gauge in right forearm, using aseptic technique. Blood la1 collected. 07/31 01:26 Yuliana Tubbs MD is Hospitalizing Provider. ps1 02:40 No provider procedures requiring assistance completed. Patient admitted, IV remains in rv place. intact. Administered Medications: Discontinued: LevaQUIN 750 mg 150 ml IVPB once over 90 mins 07/30 21:34 Drug: Phenergan 25 mg Route: IVP; Site: Port-a-cath; la1 22:22 Follow up: Response: No adverse reaction; Nausea is decreased la1 21:34 Drug: fentaNYL (PF) 50 mcg Route: IVP; Site: Port-a-cath; la1 23:10 Follow up: Response: No adverse reaction; Pain is decreased la1 21:35 Drug: NS 0.9% (30 ml/kg) 30 ml/kg Route: IV; Rate: bolus; Site: Port-a-cath; la1 07/31 00:39 Follow up: IV Status: Infusion continued upon admission; IV Intake: 3000ml la1 07/30 22:01 Drug: Zosyn 3.375 grams Route: IVPB; Infused Over: 60 mins; Site: Port-a-cath; la1 23:10 Follow up: IV Status: Completed infusion la1 22:02 Drug: Decadron - Dexamethasone 10 mg Route: IVP; Site: Port-a-cath; la1 22:22 Follow up: Response: No adverse reaction la1 23:07 Drug: vancoMYCIN 1 grams Route: IVPB; Infused Over: 2 hrs; Site: Port-a-cath; la1 23:07 Drug: Norepinephrine (4 mg/250 mL D5W) 4 mcg/min Route: IV; Rate: calculated rate; la1 Site: Port-a-cath; 23:35 Follow up: Rate change 12 mcg/min la1 07/31 00:20 Follow up: IV Status: Infusion continued upon admission la1 07/30 23:33 Drug: LevaQUIN 750 mg Volume: 150 ml; Route: IVPB; Infused Over: 90 mins; Site: right la1 forearm; 23:46 Follow up: IV Status: Order to discontinue infusion la1 23:34 Drug: Zofran 4 mg Route: IVP; Site: right forearm; la1 23:47 Follow up: Response: No adverse reaction la1 23:50 Drug: Gentamicin 80 mg Route: IVPB; Infused Over: 30 mins; Site: right forearm; la1 07/31 00:20 Follow up: IV Status: Completed infusion la1 Intake: 00:39 IV: 3000ml; Total: 3000ml. la1 Outcome: 01:27 Decision to Hospitalize by Provider. ps1 02:44 Admitted to ICU accompanied by nurse, family with patient, via stretcher, room 8, with rv oxygen, on monitor, with chart, Report called to anderson 02:44 Condition: stable 02:44 Instructed on the need for admit. 02:45 Patient left the ED. rv Signatures: Dispatcher [employer] EDJennifer Cruz Felicia, RN RN fc Gustavo Vásquez RN RN la1 Hardik Ford MD MD ps1 Malcom Castellano RN RN rv Francisco Vargas jp3 Corrections: (The following items were deleted from the chart) 01:40 01:28 BP 106 / 61; Pulse 86bpm; Pulse Ox 95% RA; rv rv
--- NOTE | 2018-07-31 01:27 | EDPHYS ---
Physician Documentation [facility] Name: Husam Vela Age: 57 yrs Sex: Male : 1960 Arrival Date: 07/30/2018 Time: 21:06 Bed 24 Private MD: Yuliana Tubbs C ED Physician Hardik Ford HPI: 07/30 22:52 This 57 yrs old Male presents to ER via Wheelchair with complaints of Urinary ps1 Problem. 22:52 patient with significant medical problems. Immunocompromised. Recurrent UTI's, multiple ps1 abdominal surgeries, and renal dysfunction presenting with fatigue, hypotension, and suspected UTI. Self caths, has had some dysuria. Recent UTI that was delgado resistant with sensitivity to gentamycin. . Historical: - Allergies: 21:24 Demerol; la1 21:24 Latex, Natural Rubber; la1 21:24 Remicade; la1 - Home Meds: 21:24 Abilify 5 mg Oral tab 1 tab once daily [Active]; anakinra subcutaneous once daily la1 [Active]; chlorthalidone 25 mg Oral tab 1 tab once daily [Active]; Cymbalta 60 mg Oral cpDR 2 caps once daily [Active]; Flomax 0.4 mg Oral cp24 1 cap once daily [Active]; [place] 7.5-325 mg Oral tab 1 tab every 6 hours [Active]; prednisone 5 mg Oral tab 1 tab once daily [Active]; Protonix 40 mg Oral TbEC 1 tab once daily [Active]; sotalol 80 mg Oral tab 1 tab 2 times per day [Active]; spironolactone 50 mg Oral tab 1 tab 2 times per day [Active]; Xarelto 20 mg Oral tab 1 tab once daily [Active]; - PMHx: 21:24 Atrial Fib; heart ablassion; Hypertension; 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 - Social history:: Smoking status: unknown. - Ebola Screening: : No symptoms or risks identified at this time. ROS: 23:47 Eyes: Negative for injury, pain, redness, and discharge, ENT: Negative for injury, ps1 pain, and discharge, Cardiovascular: Negative for chest pain, palpitations, and edema, Respiratory: Negative for shortness of breath, cough, wheezing, and pleuritic chest pain, Abdomen/GI: Negative for abdominal pain, nausea, vomiting, diarrhea, and constipation, MS/Extremity: Negative for injury and deformity, Skin: Negative for injury, rash, and discoloration, Neuro: Negative for headache, weakness, numbness, tingling, and seizure. 23:47 Constitutional: Positive for chills, fatigue. 23:47 : Positive for urinary symptoms. Exam: 23:49 Constitutional: This is a well developed, well nourished patient who is awake, alert, ps1 and in no acute distress. Head/Face: Normocephalic, atraumatic. Eyes: Pupils equal round and reactive to light, extra-ocular motions intact. Lids and lashes normal. Conjunctiva and sclera are non-icteric and not injected. Chest/axilla: Normal chest wall appearance and motion. Nontender with no deformity. No lesions are appreciated. Skin: Warm, dry with normal turgor. Normal color with no rashes, no lesions, and no evidence of cellulitis. 23:49 Cardiovascular: Rate: tachycardic, Rhythm: regular, Pulses: no pulse deficits are appreciated. 23:49 Abdomen/GI: Inspection: scar(s), are noted in the right upper quadrant, left upper quadrant, right lower quadrant and left lower quadrant, Bowel sounds: normal. Vital Signs: 21:16 BP 72 / 31; Pulse 106; Resp 20; Temp 99.0(O); Pulse Ox 94% on R/A; Weight 174.63 kg; la1 Height 6 ft. 2 in. (187.96 cm); 22:18 BP 77 / 48; Pulse 95; Resp 16; Pulse Ox 96% on R/A; la1 23:11 BP 93 / 50; Pulse 88; Resp 16; Pulse Ox 94% on R/A; la1 23:34 BP 84 / 46; Pulse 85; Resp 16; Pulse Ox 94% on R/A; la1 23:43 BP 92 / 59; Pulse 83; Resp 18; Pulse Ox 96% on 2 lpm NC; la1 0909 00:00 BP 92 / 56; Pulse 86; Resp 20; Pulse Ox 96% on 2 lpm NC; la1 00:15 BP 99 / 55; Pulse 86; Resp 20; Temp 98.8(O); Pulse Ox 96% on 2 lpm NC; la1 00:36 BP 103 / 56; Pulse 86; Resp 16; Pulse Ox 95% on 2 lpm NC; la1 01:00 BP 106 / 61; Pulse 86; Pulse Ox 95% on R/A; rv 01:30 BP 99 / 59; Pulse 85; Pulse Ox 97% ; rv 09 21:16 Body Mass Index 49.43 (174.63 kg, 187.96 cm) la MDM: 07/30 21:27 Patient medically screened. [facility] 07/30 21:33 Order name: Blood Culture Adult (2) ps1 07/30 21:33 Order name: CBC with Diff; Complete Time: 22:45 [facility] 07/30 21:33 Order name: Lactate; Complete Time: 22:45 [facility] 07/30 21:33 Order name: Lipase; Complete Time: 22:45 [facility] 07/30 21:33 Order name: Sed Rate; Complete Time: 22:45 [facility] 07/30 21:33 Order name: Troponin (emerg Dept Use Only); Complete Time: 22:45 [facility] 07/30 21:33 Order name: Chest Single View XRAY [facility] 07/30 21:33 Order name: CMP; Complete Time: 22:45 [facility] 07/30 21:59 Order name: Urine Dipstick--Ancillary (enter results); Complete Time: 22:08 [facility] 07/30 21:59 Order name: Urine Microscopic Only; Complete Time: 22:45 [facility] 07/30 21:59 Order name: Urine Culture [facility] 07/30 22:38 Order name: Manual Differential; Complete Time: 22:45 [facility] 07/31 00:13 Order name: Lactate Sepsis 2 HR Follow-up; Complete Time: 00:16 [facility] 07/30 21:33 Order name: Accucheck; Complete Time: 21:48 [facility] 07/30 21:33 Order name: Cardiac monitoring; Complete Time: 21:48 [facility] 07/30 21:33 Order name: EKG - Nurse/Tech; Complete Time: 22:36 [facility] 07/30 21:33 Order name: IV Saline Lock - Large Bore; Complete Time: 21:48 [facility] 07/30 21:33 Order name: Labs collected and sent; Complete Time: 21:48 [facility] 07/30 21:33 Order name: O2 Per Protocol; Complete Time: 21:48 [facility] 07/30 21:33 Order name: O2 Sat Monitoring; Complete Time: 21:48 ps1 08 21:33 Order name: Urine Dipstick-Ancillary (obtain specimen); Complete Time: 21:48 ps1 EC:49 Rate is 95 beats/min. Rhythm is regular. QRS [place] is Normal. MD interval is normal. QRS ps1 interval is prolonged. QT interval is normal. No Q waves. No ST changes noted. Clinical impression: incomplete RBBB. . Interpreted by me. Administered Medications: Discontinued: LevaQUIN 750 mg 150 ml IVPB once over 90 mins 21:34 Drug: Phenergan 25 mg Route: IVP; Site: Port-a-cath; la1 22:22 Follow up: Response: No adverse reaction; Nausea is decreased la1 21:34 Drug: fentaNYL (PF) 50 mcg Route: IVP; Site: Port-a-cath; la1 23:10 Follow up: Response: No adverse reaction; Pain is decreased la1 21:35 Drug: NS 0.9% (30 ml/kg) 30 ml/kg Route: IV; Rate: bolus; Site: Port-a-cath; la1 07/31 00:39 Follow up: IV Status: Infusion continued upon admission; IV Intake: 3000ml la1 07/30 22:01 Drug: Zosyn 3.375 grams Route: IVPB; Infused Over: 60 mins; Site: Port-a-cath; la1 23:10 Follow up: IV Status: Completed infusion la1 22:02 Drug: Decadron - Dexamethasone 10 mg Route: IVP; Site: Port-a-cath; la1 22:22 Follow up: Response: No adverse reaction la1 23:07 Drug: vancoMYCIN 1 grams Route: IVPB; Infused Over: 2 hrs; Site: Port-a-cath; la1 23:07 Drug: Norepinephrine (4 mg/250 mL D5W) 4 mcg/min Route: IV; Rate: calculated rate; la1 Site: Port-a-[facility]; 23:35 Follow up: Rate change 12 mcg/min 07/31 00:20 Follow up: IV Status: Infusion continued upon admission la1 07/30 23:33 Drug: LevaQUIN 750 mg Volume: 150 ml; Route: IVPB; Infused Over: 90 mins; Site: right la forearm; 23:46 Follow up: IV Status: Order to discontinue infusion la1 23:34 Drug: Zofran 4 mg Route: IVP; Site: right forearm; la1 23:47 Follow up: Response: No adverse reaction la1 23:50 Drug: Gentamicin 80 mg Route: IVPB; Infused Over: 30 mins; Site: right forearm; la1 07/31 00:20 Follow up: IV Status: Completed infusion la1 Disposition: 07/31/18 01:27 Hospitalization ordered by Yuliana Tubbs for Inpatient Admission. Preliminary diagnosis are acute cystitis with hematuria, Sepsis, Hypotension. - Bed requested for Intensive Care Unit. - Status is Inpatient Admission. rv - Condition is Serious. - Problem is new. - Symptoms have improved. UTI on Admission? Yes Signatures: Dispatcher [employer] EDMS Gustavo Vásquez RN RN la1 Hardik Ford MD MD ps1 Anisa Delcid mw2 Malcom Castellano RN RN rv Corrections: (The following items were deleted from the chart) 07/30 22:38 22:00 CBC Smear Scan ordered. EDAR EDMS 23:48 22:52 patient with significant medical problems. Immunocompromised. Recurrent UTI's, ps1 multiple abdominal surgeries, and renal dysfunction presenting with fatigue, hypotension, and suspected UTI. Self caths, has had some dysuria. . ps1 07/31 02:05 01:27 Hospitalization Ordered by A Suly PRICE for Inpatient Admission. Preliminary mw2 diagnosis is acute cystitis with hematuria; Sepsis; Hypotension. Bed requested for Intensive Care Unit. Status is Inpatient Admission. Condition is Serious. Problem is new. Symptoms have improved. UTI on Admission? Yes. ps1 02:45 02:05 07/31/2018 01:27 Hospitalization Ordered by A Suly PRICE for Inpatient Admission. rv Preliminary diagnosis is acute cystitis with hematuria; Sepsis; Hypotension. Bed requested for Intensive Care Unit. Status is Inpatient Admission. Condition is Serious. Problem is new. Symptoms have improved. UTI on Admission? Yes. mw2
[2018-07-31] MEDS ORDERED: ACETAMINOPHEN 500 MG TAB PO PRN (01:36)
[2018-07-31] MEDS: MORPHINE 4 MG/ML SYR IV PRN ×5 (02:51→22:18)
[2018-07-31] MEDS ORDERED: VANCOMYCIN/NS 1 gm 1 GM/250 ML BAG IV ONE ×2 (03:00→04:30)
[2018-07-31] MEDS ORDERED: VANCOMYCIN 1 GM/250 ML BAG ONE (03:05)
[2018-07-31] MEDS: NA CHLORIDE 0.9% 1,000 ML IV SCH ×4 (03:41→20:20)
[2018-07-31] MEDS ORDERED: VANCOMYCIN 2 GM in NA CHLORIDE 0.9% 500 ML IV SCH ×3 (04:00→18:00)
[2018-07-31] MEDS ORDERED: VANCOMYCIN 1 GM/VIAL ONE (04:36)
[2018-07-31] MEDS ORDERED: NA CHLORIDE 0.9% 250 ML ONE (04:38)
[2018-07-31] MEDS: ONDANSETRON 4 MG/2 ML VIAL IV PRN ×3 (04:41→20:57)
[2018-07-31] MEDS ORDERED: NOREPINEPHRINE 4mg/D5W 250mL 4 MG/250 ML BAG IV ONE (05:50)
[2018-07-31] MEDS ORDERED: HYDROCODONE/APAP 7.5/325 MG TAB PO PRN (07:45)
--- NOTE | 2018-07-31 08:53 | EKG ---
Test Date: 2018-07-30 Test Time: 22:30:07 [employer] Teacher: GERARDO MEASUREMENT RESULTS: Intervals: Rate: 95 OR: 170 QRSD: 96 QT: 366 QTc: 459 [place]: P: 76 OR: 170 QRS: 78 T: 65 INTERPRETIVE STATEMENTS: Normal sinus rhythm Incomplete right bundle branch block Septal infarct, age undetermined Abnormal ECG Compared to ECG 06/25/2018 21:34:20 Myocardial infarct finding now present Electronically Signed On 07-31-18 08:52:30 CDT by Gaston Phillips
[2018-07-31] MEDS ORDERED: DULOXETINE HCL PO SCH (09:00)
[2018-07-31] MEDS ORDERED: RIVAROXABAN 20 MG TABLET PO SCH (09:00)
[2018-07-31] MEDS ORDERED: SOTALOL HCL 120 MG PO SCH (09:00)
[2018-07-31] MEDS ORDERED: HOME MED 1 EA UNK (Omeprazole [Omeprazole] 20 MG) PO SCH (09:00)
[2018-07-31] MEDS ORDERED: predniSONE 10 MG TAB PO SCH (09:00)
--- NOTE | 2018-07-31 09:19 | RAD REPORT ---
EXAM DESCRIPTION: RAD - Chest Single View - 07/30/2018 10:01 pm CLINICAL HISTORY: Sepsis, urinary difficulty, hypotensive, tachycardia COMPARISON: June 22 TECHNIQUE: AP portable chest image was obtained 2143 hours . FINDINGS: Exam is limited by portable technique and large body habitus. No acute lung parenchymal pr ocess identifiable. No significant failure or volume overload. Heart and vasculature are normal. No m easurable pleural effusion and no pneumothorax. No gross bony abnormality seen. No acute aortic findi ng. Right-sided jugular tunneled catheter still in place. IMPRESSION: No acute cardiopulmonary process. No significant change from comparison.
[2018-07-31] MEDS: PANTOPRAZOLE 40MG TABLET PO SCH (09:28)
[2018-07-31] MEDS: HYDROCORTISONE SUC 100 MG INJ IV SCH ×4 (09:28→23:42)
[2018-07-31] MEDS: DULOXETINE 30 MG CAP PO SCH (09:28)
[2018-07-31] MEDS: SOTALOL HCL 80 MG TAB PO SCH ×2 (09:29→20:18)
[2018-07-31] MEDS: ARIPiprazole 5 MG TAB PO SCH (09:29)
[2018-07-31] MEDS: TAMSULOSIN 0.4 MG SR CAP PO SCH (09:31)
[2018-07-31] MEDS: acetaZOLAMIDE 250 MG TAB PO SCH (09:31)
[2018-07-31] MEDS: FOLIC ACID 1 MG TABLET PO SCH (09:32)
[2018-07-31] MEDS ORDERED: NOREPINEPHRINE 4 MG in D5W 250 ML IV PRN (16:52)
[2018-07-31] MEDS: NA CHLORIDE 0.9% IVPB SCH (17:16)
[2018-07-31] MEDS: GENTAMICIN IVPB SCH (17:16)
--- NOTE | 2018-07-31 21:00 | HP ---
Date of Admission: 07/31/2018 Chief Complaint: Fever, chills, nausea, vomiting. History Of Present Illness: This is a 57-year-old male patient with a history of urethral stricture and recurrent urinary tract infection. He is under care of Dr. Alvarez, urologist in [place], and he sees him regularly. He reports that about 2 weeks ago, he had urinary tract infection and urine culture was done at our hospital, which I have reviewed today. It was actually Enterococcus faecalis. This was vancomycin-resistant bacteria and only sensitive to antibiotic that it was gentamicin. The patient received 1 dose of gentamicin 160 mg IM, after this urine culture result was available to his urologist. He was doing fine until this week. On , he started to have some intermittent fever, chills, nausea with vomiting. His condition deteriorated yesterday with worsening of fever and chills, and his chills were bad enough that his daughter thought that he was having seizure episode and she called ambulance and the patient was brought into the ER. He also started to have some dysuria yesterday. After he was evaluated in the ER, he was treated with IV fluid. Blood pressure was not coming up. He was given IV steroid as well as vasopressor medication was started. In the ER, he received vancomycin, gentamicin, Zosyn, and Levaquin and then subsequently ER physician contacted me during nighttime, requesting admission to ICU. The patient was hemodynamically stable at that time. This morning, I saw him. His was present with him at bedside. Medications: List reviewed. Review of Systems: Constitutional: As mentioned above. GI: As mentioned above. Genitourinary: As mentioned above. All other systems reviewed and negative. Allergies: TO DEMEROL, REMICADE, AND LATEX. Social History: Negative for smoking and alcohol use. Family History: Not pertinent. Past Surgical History: Significantfor abdominal wall abscess and surgery for that, incision and drainage for abscess. In the past, he had surgery for ventral hernia, knee surgery, Port-A-Cath placement. Past Medical History: Significant for paroxysmal atrial fibrillation, sleep apnea, hypertension, Crohn disease, chronic steroid therapy, rheumatoid arthritis, ventral hernia, morbid obesity, urethral stricture with recurrent urinary tract infection. Physical Examination: Vital Signs: His initial vitals yesterday, pulse 106, respiratory rate 20, blood pressure 72/31, height 6 feet 2 inches, weight 385 pounds. Last blood pressure this morning was 105/70, pulse 73. Oxygen saturation 95. General: Awake, alert, oriented, not in distress. HEENT: Head atraumatic, normocephalic. Conjunctivae nonerythematous. Sclerae white. Mouth, no thrush or edema noted. Ears/Nose, no mass, lesion, discharge noted. Neck: Supple. No JVD, lymph nodes, bruit, thyromegaly noted. Lungs: Bilateral good equal air entry. Clear to auscultation. No rhonchi. No rales. Heart: Normal heart sounds, no murmur or gallop. Abdomen: Pendulous, morbidly obese. Multiple old surgical scars noted. No open wound. Abdomen is soft. Bowel sounds normoactive. No guarding, rigidity , tenderness, or distention. Extremities: No leg edema. No calf tenderness. Skin: No rash, ulcer, cellulitis. Lymphatics: No lymph node enlargement in neck, supraclavicular, infraclavicular region. Neuro: No focal neurological deficit. Chest: Unremarkable. External Genitalia: Deferred. Rectal: Deferred. Laboratory Data: White count 15.4, hemoglobin 12.4, platelets 217. Sedimentation rate 34. Lactic acid 2.3. Sodium 137, potassium 3.5, chloride 104, bicarb 26, BUN 28, creatinine 1.20. Glucose 122. Liver function tests unremarkable. Lipase 136. Urinalysis, positive for nitrite, esterase 2+, bacteria loaded, wbc 20-50. His urine culture from 07/12/2018 done on outpatient basis per urologist, Dr. Alvarez, has grown Enterococcus faecium and it is vancomycin resistant. Only sensitive to antibiotic, it is gentamicin. Impression: 1. Septic shock. 2. Urinary tract infection. 3. Chronic steroid therapy. 4. Urethral stricture. 5. Paroxysmal atrial fibrillation. 6. Hypertension. 7. Sleep apnea. 8. Crohn disease. 9. Rheumatoid arthritis. 10. Ventral hernia. Plan: Admit the patient to hospital for further evaluation and management of this problem. The patient is appropriate for inpatient and is expected to spend 2 midnights in hospital. We will continue IV fluid, continue vasopressor medication, and will try to wean it off, provided his blood pressure remained stable. Overnight ICU nurse was able to reduce the dose of vasopressor medication. Currently, he is not in any respiratory distress. Vital signs are stable. We will go ahead and continue empiric antibiotic. In view of his last urine culture that he had, we will only give gentamicin. He has not had any MRSA, urinary tract infection recently and we will discontinue vancomycin and we will just continue gentamicin by itself at this point. I do not feel comfortable giving to nephrotoxic antibiotics at this point unless we absolutely have to as he has only 1 functioning kidney. We need to try to avoid any nephrotoxic medication if at all possible. Once we get the culture results back, we can decide about culture specific antibiotics. Home medications will be continued per order. For sleep apnea, he has not been able to tolerate any CPAP machine and he has done well without it, so no need for any intervention there. As far as urethral stricture and recurrent urinary tract infection is concerned, the patient has appointment to see Dr. Alvarez not until September or October and I have advised him that hopefully, he should be able to go home sometime this coming week, but I have advised him to schedule appointment to visit with his urologist, Dr. Alvarez, a week after. We did talk about leaving Wilson catheter in as an indwelling Wilson catheter instead of doing straight catheterization that he does about anywhere from once a day to 3 times a day and the patient's has informed me that in the past every time, he had Wilson catheter in, he had severe bladder spasm and gross hematuria. So, a leaving Wilson catheter is not an option. Other option we talked about a suprapubic catheter placement, but considering his multiple prior surgeries and significant scar tissue, I am not sure whether that is a good option or not, and the patient does tell me that during last office visit with Dr. Alvarez, he had put down in his note that he might consider stent placement in the future and obviously, he will discuss with him as the time goes on. Dr. Alvarez wants him to do straight catheterization of his bladder 3 times a day, but he has not been able to do it. Sometime, he is able to do it once a day, sometime 2 times a day. We will give him a stress dose of IV steroid yesterday. He got dexamethasone 10 mg today. We will start him on Solu-Cortef 100 mg every 6 hours. We will keep him in ICU today. Depending on his condition tomorrow, we will decide if we can move him out of ICU to regular room or not. JORDAN/KENDALL Voice ID: [id number] VERONICA
[2018-07-31] MEDS ORDERED: WATER FOR INJ,STERILE 10 ML ONE (23:45)
[2018-08-01] MEDS: NA CHLORIDE 0.9% IVPB SCH ×4 (01:02→18:39)
[2018-08-01] MEDS: GENTAMICIN IVPB SCH ×4 (01:02→18:39)
[2018-08-01] MEDS: MORPHINE 4 MG/ML SYR IV PRN ×4 (02:32→18:08)
[2018-08-01] MEDS: HYDROCORTISONE SUC 100 MG INJ IV SCH ×3 (05:25→18:02)
[2018-08-01] MEDS: NA CHLORIDE 0.9% 1,000 ML IV SCH ×4 (05:41→20:44)
[2018-08-01 05:48] LABS: Potassium 3.7 mmol/L (3.5-5.1)
[2018-08-01 05:50] LABS: Absolute Lymphocytes (CBC) 1.3 K/uL (0.7-4.9); Absolute Neutrophil 14.3 K/uL (1.8-8.0); Basophils % 0.1 % (0-1.3); Hematocrit 33.4 % (39.6-49.0); Lymphocytes % 7.8 % (15.3-44.8); MCH 32.7 pg (27.0-35.0); MCV 95.9 fL (80-100); MPV 8.7 fL (7.6-11.3); Monocytes % 5.7 % (3.3-12.3); RBC Red Blood Cell Count 3.48 M/uL (4.33-5.43)
--- NOTE | 2018-08-01 06:41 | RAD REPORT ---
EXAM DESCRIPTION: US - Renal Ultrasound-Complete - 07/31/2018 11:56 pm CLINICAL HISTORY: Urinary tract infection COMPARISON: CT study June 22 FINDINGS: The right kidney measures 14.3 x 7.8 x 7.2 cm.. The left kidney measures 9.9 x 7.3 x 5.6 cm. Right renal cortical thickness and echogenicity are normal. Mild dilatation of the right renal pe lvis and calices present. This matches the June CT study. Left kidney again noted to be much smalle r than right with thinned, poorly defined renal cortex. No left-sided hydronephrosis or suspicious ma ss. A 19 mm cyst is identifiable lateral mid right kidney. Urinary bladder is distended. No bladder wall thickening or mass. IMPRESSION: Mild right-sided pelvis and caliceal dilatation similar to [place] study. Significant cortical thinning of the left renal parenchyma with no hydronephrosis or mass. Left kidne y is much smaller than the right. Renal findings are similar to the June 22 examination.
[2018-08-01] MEDS ORDERED: POTASSIUM 25 MEQ EFFERV TAB PO ONE (07:20)
[2018-08-01] MEDS: PANTOPRAZOLE 40MG TABLET PO SCH (07:30)
[2018-08-01] MEDS ORDERED: POTASSIUM CL SA 10 MEQ TAB PO ONE (07:30)
[2018-08-01] MEDS: SOTALOL HCL 80 MG TAB PO SCH ×2 (08:33→16:00)
[2018-08-01] MEDS: ONDANSETRON 4 MG/2 ML VIAL IV PRN (08:33)
[2018-08-01] MEDS: ARIPiprazole 5 MG TAB PO SCH (08:34)
[2018-08-01] MEDS: RIVAROXABAN 20 MG TABLET PO SCH (08:34)
[2018-08-01] MEDS: FOLIC ACID 1 MG TABLET PO SCH (08:34)
[2018-08-01] MEDS: TAMSULOSIN 0.4 MG SR CAP PO SCH (08:35)
[2018-08-01] MEDS: acetaZOLAMIDE 250 MG TAB PO SCH (08:35)
[2018-08-01] MEDS: DULOXETINE 30 MG CAP PO SCH (08:35)
[2018-08-01] MEDS: CEFTRIAXONE/SWI 1gm 1 GM/10 ML SYR IV SCH ×2 (08:36→20:44)
[2018-08-01 08:56] LABS: Blood Morphology Comment NOT SEEN (NOT SEEN); Platelet Estimate ADEQ
[2018-08-01] MEDS ORDERED: CEFTRIAXONE 1 GM/NS 50 ML 1 GM/50 ML BAG IV SCH (09:00)
[2018-08-01 21:49] LABS: Absolute Lymphocytes (CBC) 0.9 K/uL (0.7-4.9); Absolute Monocytes 0.6 K/uL (0.1-1.3); Absolute Neutrophil 10.2 K/uL (1.8-8.0); Basophils % 0.1 % (0-1.3); Hematocrit 33.5 % (39.6-49.0); MCH 32.5 pg (27.0-35.0); MCV 98.5 fL (80-100); MPV 8.3 fL (7.6-11.3); Monocytes % 5.4 % (3.3-12.3)
[2018-08-01 22:03] LABS: Potassium 3.7 mmol/L (3.5-5.1)
[2018-08-01] MEDS: PROMETHAZINE 25 MG TABLET PO PRN (23:33)
--- NOTE | 2018-08-01 23:57 | PN ---
Date of Progress Note: 08/01/2018 Subjective: The patient was seen this morning for followup, sleeping, easily arousable, not in distr ess. No new complaints or problems reported by nursing staff or the patient. Objective: Vital Signs: Reviewed. HEENT: Unremarkable. Lungs: Clear to auscultation. Heart: Sounds normal. Abdomen: Soft. Bowel sounds normal. No guarding, rigidity, tenderness, or distention. Extremities: No leg edema. Laboratory Data: White count 16.6, hemoglobin 11.4, platelets 249. Sodium 141, potassium 3.7, chlor manuel 109, bicarb 26, BUN 21, creatinine 1.0, glucose 298. Blood culture gram-negative rods. Impression: 1.Sepsis, organism gram-negative rods. 2.Urinary tract infection. 3.Atrial fibrillation, paroxysmal. 4.Chronic steroid therapy. Plan: We will go ahead and reduce dose of Solu-Cortef from 100 mg every 6 hours down to 100 mg every 8 hours. Continue gentamicin. Add ceftriaxone. Follow up on blood culture results. Hopefully, fi nal results might be available in next day or two days and then we will decide about culture specific antibiotics. Continue to monitor renal function, and the patient went into atrial fibrillation with rapid ventricular rate this afternoon. Cardiology consultation was requested. He continues to take his sotalol. Order was written for transfer out of ICU to regular room this morning after we discon tinued his vasopressor medication, but when he went into atrial fibrillation with rapid ventricular r ate, we decided to keep him in ICU until we get cardiology consultation. I will see him tomorrow for followup. Continue Xarelto per order. JORDAN/MODL Voice ID: [id number] Report ID: [id number]
[2018-08-02] MEDS: MORPHINE 4 MG/ML SYR IV PRN ×4 (00:29→18:36)
--- NOTE | 2018-08-02 00:33 | EKG ---
Test Date: 2018-08-01 Test Time: 15:44:18 Chemist Enzymes: VILMA MEASUREMENT RESULTS: Intervals: Rate: 131 HI: QRSD: 92 QT: 310 QTc: 457 [place]: P: HI: QRS: 80 T: -40 INTERPRETIVE STATEMENTS: Atrial fibrillation with rapid ventricular response Low voltage QRS Incomplete right bundle branch block Septal infarct, age undetermined Abnormal ECG Compared to ECG 07/30/2018 22:30:07 Low QRS voltage now present Sinus rhythm no longer present Myocardial infarct finding still present Electronically Signed On 08-02-18 00:32:02 CDT by Gaston Phillips
[2018-08-02] MEDS: GENTAMICIN IVPB SCH ×2 (01:00→09:00)
[2018-08-02] MEDS: NA CHLORIDE 0.9% IVPB SCH ×2 (01:00→09:00)
[2018-08-02] MEDS: HYDROCORTISONE SUC 100 MG INJ IV SCH ×3 (01:57→17:31)
[2018-08-02] MEDS: NA CHLORIDE 0.9% 1,000 ML IV SCH ×4 (03:20→20:25)
[2018-08-02 05:08] LABS: Absolute Lymphocytes (CBC) 1.3 K/uL (0.7-4.9); Absolute Monocytes 0.8 K/uL (0.1-1.3); Absolute Neutrophil 8.9 K/uL (1.8-8.0); Basophils % 0.2 % (0-1.3); Hematocrit 34.7 % (39.6-49.0); MCH 32.7 pg (27.0-35.0); MPV 8.6 fL (7.6-11.3); Monocytes % 7.1 % (3.3-12.3); RBC Red Blood Cell Count 3.57 M/uL (4.33-5.43)
[2018-08-02 05:31] LABS: Magnesium 1.9 mg/dL (1.8-2.4); Potassium 3.9 mmol/L (3.5-5.1)
[2018-08-02] MEDS ORDERED: POTASSIUM 25 MEQ EFFERV TAB PO ONE (07:30)
[2018-08-02] MEDS: PANTOPRAZOLE 40MG TABLET PO SCH (08:03)
[2018-08-02] MEDS: DULOXETINE 30 MG CAP PO SCH (08:50)
[2018-08-02] MEDS: SOTALOL HCL 80 MG TAB PO SCH ×2 (08:50→20:23)
[2018-08-02] MEDS: CEFTRIAXONE/SWI 1gm 1 GM/10 ML SYR IV SCH ×2 (08:50→20:23)
[2018-08-02] MEDS: acetaZOLAMIDE 250 MG TAB PO SCH (08:52)
[2018-08-02] MEDS: TAMSULOSIN 0.4 MG SR CAP PO SCH (08:52)
[2018-08-02] MEDS: PROMETHAZINE 25 MG TABLET PO PRN (08:52)
[2018-08-02] MEDS: FOLIC ACID 1 MG TABLET PO SCH (08:53)
[2018-08-02] MEDS: ARIPiprazole 5 MG TAB PO SCH (08:54)
[2018-08-02] MEDS: RIVAROXABAN 20 MG TABLET PO SCH (08:54)
[2018-08-02] MEDS ORDERED: Gentamicin Inj 240 MG in NA CHLORIDE 0.9% 100 ML IVPB SCH (13:00)
[2018-08-02] MEDS ORDERED: ALPRAZOLAM 0.25 MG TABLET PO PRN (20:04)
--- NOTE | 2018-08-03 | PN ---
Date of Progress Note: 08/02/2018 Subjective: Patient was seen this morning for followup. Lying in bed not in distress. Yesterday af ternoon, he went into atrial fibrillation with rapid ventricular rate and Cardiology consultation was obtained from Dr. Phillips. This morning, he was still in atrial fibrillation with rapid ventricular rate. Objective: Vital Signs: Reviewed. HEENT: Unremarkable. Lungs: Clear to auscultation. Heart: Sounds normal. Abdomen: Soft. Bowel sounds normal. No guarding, rigidity, tenderness, or distention. Extremities: No leg edema. Right hand exam is normal. Impression: 1.Sepsis, organism Escherichia coli. 2.Urinary tract infection. 3.Atrial fibrillation with rapid ventricular rate. 4.Rheumatoid arthritis. Plan: The patient is complaining of pain in his right hand. No injury. No fall. There is no swell ing, but has pain and stiffness and discomfort using right hand. No need for any further interventio n except continue pain medication per order. We will go ahead and continue IV steroid. We will redu ce dose by tomorrow. We will continue sotalol and Xarelto. Culture result came back, it is E coli s ensitive to multiple different antibiotics including gentamicin and ceftriaxone that he is currently on. So, we will discontinue gentamicin. Plan is to continue IV ceftriaxone for few days and then at some point we will decide to discharge him to go home with oral antibiotics like Bactrim that it is sensitive to or Augmentin if it is sensitive to that. Right now, we will continue to keep him in ICU . Continue to follow up with Dr. Phillips and details were discussed with him. He has communicated w ith the [facility] and in about 4 weeks if the patient still remains in atrial fibrillation, [facility] will consider ablation therapy and while in the hospital by later part of this w [place] or over the weekend, if he continues to remain in atrial fibrillation that Dr. Phillips will consi jesús doing electrical cardioversion. If he has to start amiodarone than he will have to discontinue s otalol for 48 hours and during that time we can use medication like metoprolol for rate control and Sharonda Phillips will make that decision on a day-to-day basis. I will see him tomorrow for followup. Pantera reich in ICU right now. JORDAN/MODL Voice ID: [id number] Report ID: [id number]
--- NOTE | 2018-08-03 | CON ---
Date of Consultation: 08/02/2018 Reason For Consultation: Recurrent atrial fibrillation. 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 He is 57 years old, has had a history of atrial fibrillation. He has pathak d ablation before approximately 2-3 years ago. He has had a recurrent atrial fibrillation requiring cardioversion in June of 2018 while he was taking Betapace 120 twice a day. He was admitted to the hospital for urosepsis, cystitis, and has a history of hypertension, renal insufficiency, rheumatoid arthritis, small-bowel obstruction, and vesicular cancers. While he was being treated with antibiot ics, he was also on Levophed for hypotension. He had a recurrence of his atrial fibrillation with ra te of 120. He remains on Betapace 120 b.i.d. as well as Xarelto. The patient is asymptomatic with h is atrial fibrillation. Allergies: HE IS ALLERGIC TO LATEX, DEMEROL, AND REMICADE. Review of Systems: Negative. Social History: Negative. Family History: Noncontributory. Medications: Include Xarelto, Betapace, Abilify, chlorthalidone, Prilosec, Flomax, prednisone, Diamo x, and Aldactone. Physical Examination: Vital Signs: He weighed 385 pounds. He is in atrial fibrillation at a rate of 120. HEENT: Negative. Neck: Supple. No bruit. Chest: Clear. Cardiac: Exam revealed atrial fibrillation. Abdomen: Obese, but benign. Extremities: Revealed no clubbing, cyanosis, or edema. Diagnostic Data: Potassium is 3.7. White count is 11. Glucose 301. First EKG was normal, now is a trial fibrillation. Impression And Plan: Recurrent atrial fibrillation. I discussed the case with the patient himself. I discussed the case with Dr. Tubbs and discussed the case with electrophysiology physician in [facility]. They recommend continuing present regimen including the Xarelto and they believe the best course of treatment is to do another ablation. I will discuss the case further with Dr. Vela as to what he wants to do. Certainly, amiodarone is another option. I am concerned about amiodarone and him i n the residential considering his other medical history. His other problems including hypertension see m to be stable at this point without any Levophed. NB/KENDALL Voice ID: [id number] Report ID: [id number]
[2018-08-03] MEDS: HYDROCORTISONE SUC 100 MG INJ IV SCH ×3 (00:22→17:05)
[2018-08-03] MEDS: MORPHINE 4 MG/ML SYR IV PRN ×5 (00:48→20:49)
[2018-08-03] MEDS: NA CHLORIDE 0.9% 1,000 ML IV SCH ×2 (06:00→19:20)
[2018-08-03 06:44] LABS: Absolute Lymphocytes (CBC) 1.7 K/uL (0.7-4.9); Absolute Monocytes 0.8 K/uL (0.1-1.3); Absolute Neutrophil 9.7 K/uL (1.8-8.0); Basophils % 0.4 % (0-1.3); Eosinophils % 0.2 % (0-4.4); Hematocrit 35.5 % (39.6-49.0); Lymphocytes % 13.7 % (15.3-44.8); MCH 32.2 pg (27.0-35.0); MCV 96.6 fL (80-100); MPV 8.8 fL (7.6-11.3); Monocytes % 6.5 % (3.3-12.3); RBC Red Blood Cell Count 3.67 M/uL (4.33-5.43)
[2018-08-03] MEDS: CEFTRIAXONE/SWI 1gm 1 GM/10 ML SYR IV SCH ×2 (08:06→20:47)
[2018-08-03] MEDS: WATER FOR INJ,STERILE 10 ML IV SCH ×2 (08:06→17:00)
[2018-08-03] MEDS: FOLIC ACID 1 MG TABLET PO SCH (08:06)
[2018-08-03] MEDS: RIVAROXABAN 20 MG TABLET PO SCH (08:06)
[2018-08-03] MEDS: ARIPiprazole 5 MG TAB PO SCH (08:06)
[2018-08-03] MEDS: DULOXETINE 30 MG CAP PO SCH (08:07)
[2018-08-03] MEDS: acetaZOLAMIDE 250 MG TAB PO SCH (08:07)
[2018-08-03] MEDS: SOTALOL HCL 80 MG TAB PO SCH ×2 (08:07→20:47)
[2018-08-03] MEDS: PANTOPRAZOLE 40MG TABLET PO SCH (08:07)
[2018-08-03] MEDS: TAMSULOSIN 0.4 MG SR CAP PO SCH (08:07)
[2018-08-03 08:42] LABS: Blood Morphology Comment NOT SEEN (NOT SEEN); Platelet Estimate ADEQ; Urine White Blood Cell Casts OK
[2018-08-03] MEDS: METOPROLOL TARTRATE 5 MG/5 ML INJ IV SCH ×3 (12:14→12:24)
--- NOTE | 2018-08-03 23:08 | PN ---
Date of Progress Note: 08/03/2018 Subjective: The patient was seen this morning for followup, lying in bed, not in distress. He prasanth nues to remain in atrial fibrillation with rapid ventricular rate. When his heart rate goes up, he k ind of gets anxious at that time. His heart rate goes anywhere from 120 to 140 range. Blood pressur e is stable. Physical Examination: HEENT: Unremarkable. Lungs: Clear to auscultation. Heart: Sounds normal. Abdomen: Soft. Bowel sounds normal. No guarding, rigidity, tenderness, or distention. Extremities: No leg edema. Laboratory Data: White count 12.3, hemoglobin 11.8, and platelets 290. Blood culture growing Escher ichia coli. Sodium 143, potassium 4, chloride 110, bicarb 28, BUN 23, creatinine 1.0, and glucose 22 0. Impression: 1.Septic shock, resolved. 2.Urinary tract infection, organism Escherichia coli. 3.Atrial fibrillation with rapid ventricular rate. 4.Hypertension. 5.Chronic steroid therapy. 6.Rheumatoid arthritis. Plan: We will go ahead and continue current medications. Continue antibiotic Rocephin per order. W e will continue to follow with Dr. Phillips from Cardiology for atrial fibrillation problem. Continue Xarelto. We will keep him in ICU right now. Dr. Phillips will decide at what point to do electrical cardioversion on him. We will reduce dose of Solu-Cortef from 100 mg every 8 hours down to 50 mg every 8 hours. I will see him tomorrow f or followup. JORDAN/MODL Voice ID: [id number] Report ID: [id number]
[2018-08-04] MEDS: HYDROCORTISONE SUC 100 MG INJ IV SCH ×2 (01:13→07:53)
[2018-08-04] MEDS: MORPHINE 4 MG/ML SYR IV PRN ×6 (01:14→22:42)
[2018-08-04] MEDS: WATER FOR INJ,STERILE 10 ML IV SCH ×3 (01:14→15:43)
[2018-08-04 05:29] LABS: Absolute Lymphocytes (CBC) 2.2 K/uL (0.7-4.9); Absolute Monocytes 1.1 K/uL (0.1-1.3); Absolute Neutrophil 10.9 K/uL (1.8-8.0); Basophils % 0.4 % (0-1.3); Eosinophils % 0.5 % (0-4.4); Hematocrit 37.7 % (39.6-49.0); Lymphocytes % 15.6 % (15.3-44.8); MCH 32.6 pg (27.0-35.0); MCV 95.4 fL (80-100); MPV 8.3 fL (7.6-11.3); Monocytes % 7.8 % (3.3-12.3); RBC Red Blood Cell Count 3.95 M/uL (4.33-5.43)
[2018-08-04 05:38] LABS: Potassium 4.3 mmol/L (3.5-5.1)
[2018-08-04] MEDS ORDERED: MIDAZOLAM HCL 2 MG/2 ML INJ ONE (06:55)
[2018-08-04] MEDS ORDERED: FLUMAZENIL 0.1 MG/ML (5 mL VIAL) IV ONE (06:56)
[2018-08-04 06:58] LABS: Anisocytosis 1+; Blood Morphology Comment NOTED (NOT SEEN); Platelet Estimate ADEQ; Polychromasia 1+
[2018-08-04] MEDS: NA CHLORIDE 0.9% 1,000 ML IV SCH (08:40)
[2018-08-04] MEDS: predniSONE 20 MG TAB PO SCH ×2 (08:49→20:18)
[2018-08-04] MEDS: CEFTRIAXONE/SWI 1gm 1 GM/10 ML SYR IV SCH ×2 (08:50→20:17)
[2018-08-04] MEDS: DULOXETINE 30 MG CAP PO SCH (09:31)
[2018-08-04] MEDS: FOLIC ACID 1 MG TABLET PO SCH (09:32)
[2018-08-04] MEDS: SOTALOL HCL 80 MG TAB PO SCH ×2 (09:32→20:18)
[2018-08-04] MEDS: acetaZOLAMIDE 250 MG TAB PO SCH (09:32)
[2018-08-04] MEDS: RIVAROXABAN 20 MG TABLET PO SCH (09:32)
[2018-08-04] MEDS: PANTOPRAZOLE 40MG TABLET PO SCH (09:32)
[2018-08-04] MEDS: TAMSULOSIN 0.4 MG SR CAP PO SCH (09:32)
[2018-08-04] MEDS: ARIPiprazole 5 MG TAB PO SCH (09:32)
--- NOTE | 2018-08-04 11:04 | EKG ---
Test Date: 2018-08-04 Test Time: 08:03:00 Cell Stripper Final: KENNEDY MEASUREMENT RESULTS: Intervals: Rate: 78 [place]: 168 QRSD: 82 QT: 378 QTc: 430 [place]: P: 62 [place]: 168 QRS: 74 T: 53 INTERPRETIVE STATEMENTS: Normal sinus rhythm Low voltage QRS Cannot rule out Anteroseptal infarct, age undetermined Abnormal ECG Compared to ECG 08/01/2018 15:44:18 Atrial fibrillation no longer present Incomplete right bundle-branch block no longer present Myocardial infarct finding still present Electronically Signed On 08-04-18 11:03:29 CDT by Gaston Phillips
--- NOTE | 2018-08-04 19:00 | PN ---
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 He was in sinus rhythm when he came in, but he went back to atrial fibrillation while he was being treated for his urosepsis. IV Lopressor was given for rate control. We will set him up for a cardioversion on 08/04/2018. The patient understands the risk an d the benefit of the procedure and he agreed to proceed. JOVAN/KENDALL Voice ID: [id number] Report ID: [id number]
--- NOTE | 2018-08-04 23:40 | PN ---
Date of Progress Note: 08/04/2018 Subjective: No complaints or problems reported by the patient. He was sleeping , arousable, but fell back to sleep. He just had the cardioversion this morning , but he did convert to sinus rhythm after 2 attempts. He did receive some Versed, so he was sleeping this morning. Hemodynamically stable. Objective: Vital signs: Reviewed. HEENT: Unremarkable. Lungs: Normal. No guarding, rigidity, tenderness, distention. Extremities: No leg edema. Laboratory Data: White count 10.4, hemoglobin 12.9, platelets 316. Sodium 142 , potassium 4.3, chloride 109, bicarb 29, BUN 21, creatinine 1, glucose 178. Impression: 1. Atrial fibrillation with rapid ventricular rate, status post cardioversion. 2. Septic shock, resolved, gram-negative, Escherichia coli. 3. Chronic steroid therapy. Plan: We will continue current IV antibiotic which is ceftriaxone, 50 mg of hydrocortisone IV was given this morning, and as of this evening, we will start him on prednisone 20 mg p.o. b.i.d. The patient is stable for transfer to medical floor, and I will see him tomorrow for followup. Possible discharge to go home over this or Wednesday depending on his condition. JORDAN/KENDALL Voice ID: [id number] Report ID: [id number] VERONICA
[2018-08-05] MEDS: WATER FOR INJ,STERILE 10 ML IV SCH ×3 (00:23→15:20)
--- NOTE | 2018-08-05 01:21 | OP ---
Date of Procedure: 08/04/2018 Surgeon: Gaston Phillips MD Procedure: Direct current cardioversion. Reason For Cardioversion: Atrial fibrillation that is recurrent. Dr. 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 He received 2 shocks of 300 joules to convert back to normal rhythm. T here were no complications. There was no blood loss. The patient tolerated the procedure well. Tot al conscious sedation with 30 minutes. Final Assessment And Plan: Status post successful cardioversion from atrial fibrillation to normal r hythm. He is on Betapace 120 mg b.i.d. He will continue Xarelto once he is ready to go home after h is sepsis treatment for urosepsis. We will consider to refer him back to EP for another ablation. Padilla dickson has had an ablation before failed Betapace, failed ablation, failed cardioversion in June. This is a second cardioversion. JOVAN/KENDALL Voice ID: [id number] Report ID: [id number]
[2018-08-05] MEDS: MORPHINE 4 MG/ML SYR IV PRN ×5 (02:34→20:13)
[2018-08-05] MEDS: CEFTRIAXONE/SWI 1gm 1 GM/10 ML SYR IV SCH ×2 (09:00→20:14)
[2018-08-05] MEDS: PANTOPRAZOLE 40MG TABLET PO SCH (10:41)
[2018-08-05] MEDS: SOTALOL HCL 80 MG TAB PO SCH ×2 (10:41→21:51)
[2018-08-05] MEDS: DULOXETINE 30 MG CAP PO SCH (10:41)
[2018-08-05] MEDS: predniSONE 20 MG TAB PO SCH ×2 (10:41→21:51)
[2018-08-05] MEDS: ARIPiprazole 5 MG TAB PO SCH (10:41)
[2018-08-05] MEDS: acetaZOLAMIDE 250 MG TAB PO SCH (10:41)
[2018-08-05] MEDS: FOLIC ACID 1 MG TABLET PO SCH (10:42)
[2018-08-05] MEDS: TAMSULOSIN 0.4 MG SR CAP PO SCH (10:42)
[2018-08-05] MEDS: RIVAROXABAN 20 MG TABLET PO SCH (10:42)
--- NOTE | 2018-08-05 11:42 | PN ---
Date of Progress Note: 08/05/2018 Subjective: The patient was seen this morning for followup, lying in bed, not in distress. No new c omplaints or problems reported by the patient. He was on medical floor, remains in sinus rhythm. Objective: Vital Signs: Reviewed. HEENT: Unremarkable. Lungs: Clear to auscultation. Heart: Sounds normal. Abdomen: Soft. Bowel sounds normal. No guarding, rigidity, tenderness, or distention. Extremities: No leg edema. Impression: 1.Urinary tract infection. 2.Atrial fibrillation, status post electrical cardioversion. 3.Hypertension. 4.Chronic steroid therapy. Plan: We will continue current prednisone IV antibiotic, which is ceftriaxone and continue other cur rent medical management including Xarelto. I will see him tomorrow for followup. Ambulation was enc ouraged and plan is to discharge him to go home on Wednesday with oral antibiotics. Details and plan of treatment discussed with the patient and his who was present with him. JORDAN/MODL Voice ID: [id number] Report ID: [id number]
[2018-08-06] MEDS: MORPHINE 4 MG/ML SYR IV PRN ×6 (00:19→22:17)
[2018-08-06] MEDS: WATER FOR INJ,STERILE 10 ML IV SCH (01:00)
[2018-08-06] MEDS: acetaZOLAMIDE 250 MG TAB PO SCH (08:33)
[2018-08-06] MEDS: predniSONE 20 MG TAB PO SCH ×2 (08:33→21:07)
[2018-08-06] MEDS: ARIPiprazole 5 MG TAB PO SCH (08:33)
[2018-08-06] MEDS: SOTALOL HCL 80 MG TAB PO SCH ×2 (08:33→21:06)
[2018-08-06] MEDS: PANTOPRAZOLE 40MG TABLET PO SCH (08:34)
[2018-08-06] MEDS: FOLIC ACID 1 MG TABLET PO SCH (08:34)
[2018-08-06] MEDS: TAMSULOSIN 0.4 MG SR CAP PO SCH (08:34)
[2018-08-06] MEDS: DULOXETINE 30 MG CAP PO SCH (08:34)
[2018-08-06] MEDS: RIVAROXABAN 20 MG TABLET PO SCH (08:34)
[2018-08-06] MEDS: CEFTRIAXONE/SWI 1gm 1 GM/10 ML SYR IV SCH ×2 (08:35→21:05)
[2018-08-06] MEDS: SPIRONOLACTONE 25 MG TABLET PO SCH ×2 (12:14→21:06)
--- NOTE | 2018-08-06 13:43 | PN ---
Date of Progress Note: 08/06/2018 Subjective: The patient was seen this morning for followup. No specific complaints reported by him except he feels like he is retaining some fluid now and was requesting to restart his diuretic medica tion. Objective: Vital Signs: Reviewed. HEENT: Examination unremarkable. Lungs: Clear to auscultation. Heart: Sounds normal. Abdomen: Soft. Bowel sounds normal. No guarding, rigidity, tenderness, distention. Extremities: No leg edema. Impression: 1.Sepsis, organism Escherichia coli. 2.Urinary tract infection, organism Escherichia coli. 3.Atrial fibrillation, status post electrical cardioversion. 4.Hypertension. Plan: We will go ahead and continue current antibiotics ceftriaxone per order. The patient is alrea dy taking his acetazolamide. We will continue that. We will go ahead and start spironolactone as of today and chlorthalidone as of tomorrow. We will repeat blood work tomorrow morning. Ambulation wa s encouraged with physical therapy. Possible discharge to go home on Wednesday with oral antibiotics. The patient does self catheterization of his urinary bladder anywhere from 1 to 3 times a day and he has appointment to see his urologist end of this month to see if there is anything he can do to preve nt this recurrent urinary tract infection problem. One option that I have informed him to discuss wi th the urologist is suprapubic catheter, which I am not too sure considering his prior surgeries and scar tissue and his overweight problem but other option, which I feel like even before any surgical o ptions like suprapubic catheter or stent placement like what his urologist is thinking about before c onsidering any of those options. The patient should discuss with his urologist about irrigation of b ladder to see if that helps to reduce chances of any recurrent urinary tract infection or not. The p atallan and his both were made aware of that and they will discuss with Dr. Alvarez at the time of next appointment. JORDAN/MODL Voice ID: [id number] Report ID: [id number]
[2018-08-07] MEDS: MORPHINE 4 MG/ML SYR IV PRN ×6 (02:43→22:51)
[2018-08-07] MEDS: PROMETHAZINE 25 MG TABLET PO PRN (03:11)
[2018-08-07 05:41] LABS: Absolute Lymphocytes (CBC) 2.3 K/uL (0.7-4.9); Absolute Monocytes 0.8 K/uL (0.1-1.3); Absolute Neutrophil 12.4 K/uL (1.8-8.0); Basophils % 0.4 % (0-1.3); Eosinophils % 0.1 % (0-4.4); Hematocrit 40.3 % (39.6-49.0); Lymphocytes % 14.6 % (15.3-44.8); MCH 32.4 pg (27.0-35.0); MCV 95.8 fL (80-100); Monocytes % 4.9 % (3.3-12.3)
[2018-08-07 05:59] LABS: Magnesium 2.2 mg/dL (1.8-2.4); Potassium 4.5 mmol/L (3.5-5.1)
[2018-08-07 06:09] LABS: Blood Morphology Comment NOT SEEN (NOT SEEN); Platelet Estimate ADEQ; Urine White Blood Cell Casts OK
[2018-08-07] MEDS: RIVAROXABAN 20 MG TABLET PO SCH (08:48)
[2018-08-07] MEDS: PANTOPRAZOLE 40MG TABLET PO SCH (08:48)
[2018-08-07] MEDS ORDERED: NA CHLORIDE 0.9% 250 ML ONE (09:29)
[2018-08-07] MEDS: CEFTRIAXONE/SWI 1gm 1 GM/10 ML SYR IV SCH ×2 (09:39→21:08)
[2018-08-07] MEDS: SPIRONOLACTONE 25 MG TABLET PO SCH ×2 (09:39→21:08)
[2018-08-07] MEDS: SOTALOL HCL 80 MG TAB PO SCH ×2 (09:42→21:08)
[2018-08-07] MEDS: DULOXETINE 30 MG CAP PO SCH (09:42)
[2018-08-07] MEDS: TAMSULOSIN 0.4 MG SR CAP PO SCH (09:43)
[2018-08-07] MEDS: FOLIC ACID 1 MG TABLET PO SCH (09:43)
[2018-08-07] MEDS: predniSONE 20 MG TAB PO SCH ×2 (09:43→21:08)
[2018-08-07] MEDS: ARIPiprazole 5 MG TAB PO SCH (09:43)
[2018-08-07] MEDS: acetaZOLAMIDE 250 MG TAB PO SCH (09:43)
[2018-08-07] MEDS: CHLORTHALIDONE 25 MG TAB PO SCH (09:43)
--- NOTE | 2018-08-07 16:45 | PN ---
Date of Progress Note: 08/07/2018 Subjective: The patient was seen this morning for followup. No new complaints or problems reported by him. No constipation, nausea, vomiting. He did ambulate with his walker yesterday. Objective: Vital Signs: Reviewed. Remains afebrile. HEENT: Unremarkable. Lungs: Clear to auscultation. Heart: Sounds normal. Abdomen: Soft. Bowel sounds normal. No guarding, rigidity, tenderness, or distention. Extremities: No leg edema. Laboratory Data: White count 15.5, hemoglobin 13.6, platelets 346. Sodium 138 , potassium 4.5, chloride 105, bicarb 26, BUN 29, creatinine 1, glucose 174. Impression: 1. Urinary tract infection. 2. Atrial fibrillation. 3. Chronic anticoagulation therapy. Plan: We will continue current medication. Continue current steroid therapy. Elevated white count is due to steroid use and we will continue current IV antibiotic, which is ceftriaxone. I will see him tomorrow for follow up, possible discharge to go home tomorrow with oral antibiotics for at least 2 weeks. 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 I am not sure if bladder irrigation will help or not and details about it was discussed yesterday, and he is definitely going to discuss that with his urologist. JORDAN/KENDALL Voice ID: [id number] Report ID: [id number] VERONICA
[2018-08-08] MEDS: MORPHINE 4 MG/ML SYR IV PRN ×2 (04:32→08:18)
[2018-08-08 06:54] VITALS: BMI 51.1
[2018-08-08] MEDS ORDERED: HEPARIN 500 UNIT/5 ML SYR IV PRN (08:10)
[2018-08-08] MEDS: RIVAROXABAN 20 MG TABLET PO SCH (08:16)
[2018-08-08] MEDS: PANTOPRAZOLE 40MG TABLET PO SCH (08:16)
[2018-08-08] MEDS: SOTALOL HCL 80 MG TAB PO SCH (08:16)
[2018-08-08] MEDS: acetaZOLAMIDE 250 MG TAB PO SCH (08:17)
[2018-08-08] MEDS: predniSONE 20 MG TAB PO SCH (08:17)
[2018-08-08] MEDS: TAMSULOSIN 0.4 MG SR CAP PO SCH (08:17)
[2018-08-08] MEDS: FOLIC ACID 1 MG TABLET PO SCH (08:17)
[2018-08-08] MEDS: ARIPiprazole 5 MG TAB PO SCH (08:17)
[2018-08-08] MEDS: DULOXETINE 30 MG CAP PO SCH (08:17)
[2018-08-08] MEDS: CHLORTHALIDONE 25 MG TAB PO SCH (08:18)
[2018-08-08] MEDS: CEFTRIAXONE/SWI 1gm 1 GM/10 ML SYR IV SCH (08:18)
[2018-08-08] MEDS: SPIRONOLACTONE 25 MG TABLET PO SCH (08:19)
[2018-08-08 08:27] VITALS: BP 100/69
[2018-08-08 09:22] VITALS: TEMP 96.3
[2018-08-08 10:18] VITALS: O2SAT 98
--- NOTE | 2018-08-09 17:04 | DS ---
Date of Discharge: 08/08/2018 Disposition: Discharged to go home. Physical Examination: HEENT: Unremarkable. Lungs: Clear to auscultation. Heart: Sounds normal. Abdomen: Soft. Bowel sounds normal. No guarding, rigidity, tenderness, distention. Extremities: No leg edema. Laboratory Data: Yesterday white count 15.5, hemoglobin 13.6, platelets 346, and his elevated white count is due to steroid use. On 08/01/2018, white count was 16.6. Chemistry from yesterday sodium 138, potassium 4.5, chloride 105, bicarb 26, BUN 29, creatinine 1.0, glucose 174. Blood culture and urine culture growing Escherichia coli. Hospital Course: This is a 57-year-old male patient came into emergency room with fever, chills, nausea, vomiting. Please see dictated H and P for more information. The patient has history of urethral stricture and has problem with urinary retention on a day-to-day basis. He sees urologist Dr. Alvarez in [place], and as per his instruction, he wants the patient to catheterize his bladder at least 3 times a day and the patient is not able to catheterize himself because of arthritis in his hands, so his helps him and sometime he is able to get his bladder catheterized once a day and sometimes 2 times a day. Almost every time he catheterizes his bladder even after voiding. He gets approximately 1000 cc of urine, so he does have significant amount of residual in his bladder even after voiding. That seems to be definitely one important reason why he keeps on having recurrent urinary tract infection and other possible explanation could be recurrent bladder catheterization. He came into emergency room at this time with above-mentioned complaints. He was in septic shock and was admitted to intensive care unit. He had low blood pressure. Blood pressure was 72/31 when he first came in after IV fluid hydration. He also required vasopressor medication and he was admitted to ICU. His condition improved. We were able to wean off his vasopressor medication within 24 hours or so and once he was stable and we removed him out of ICU to regular room. The patient did require stress dose of IV steroid. He is on chronic prednisone therapy and we gave him hydrocortisone 100 mg every 6 hours and we started weaning off about every 24 to 48 hours. He has history of atrial fibrillation on sotalol and Xarelto. Both of these medications were continued while he was in ICU. He went into atrial fibrillation with rapid ventricular rate. Heart rate was anywhere from 120 to 150. Cardiology consultation was obtained from Dr. Phillips. The patient did require electrical cardioversion while he was in ICU because he did not improve with medical management, and after electrical cardioversion, he remained in sinus rhythm. He was transferred out of ICU to regular room. Dr. Phillips has recommended ablation and possibly pacemaker placement about 4 weeks down the line. They will give him time to recover from this sepsis. The patient will follow up with insurance claims supervisor on outpatient basis for this. He started to ambulate well with his walker. The patient says that Dr. Alvarez might consider stent placement according to his last office visit note and I have advised him to follow up with Dr. Alvarez for this recurrent urinary tract infection, especially when I am afraid that his infection is getting worse and I have asked him to discuss with Dr. Alvarez regarding 2 options, 1 is suprapubic catheter placement and other 1 is bladder irrigation. The patient and his , they will communicate with Dr. Alvarez at the time of office visit. We discontinued his IV steroid and he is on oral prednisone. His usual dose of prednisone at home is 10 mg daily. Final Diagnoses: 1. Septic shock. 2. Urinary tract infection, organism Escherichia coli. 3. Atrial fibrillation, paroxysmal. 4. Chronic steroid therapy. 5. Urethral stricture. 6. Hypertension. 7. Sleep apnea. 8. Ventral hernia. Hospital Course: Because of his previous urine culture done by urologist on outpatient basis and as soon as we received urine culture result from this admission showing Escherichia coli sensitive to multiple different antibiotics. We discontinued gentamicin and started him on ceftriaxone and he received ceftriaxone throughout this hospitalization. Discharge Medications And Instructions: 1. Continue all prior home medication except change prednisone 10 mg tablet. The patient is to take 2 tablets p.o. daily for 4 days then 1 tablet p.o. daily to continue as his maintenance dose. 2. Take Augmentin 875 mg p.o. 2 times a day for 2 weeks take it with food. 3. Follow up at my office in about 3 weeks. Follow up with Dr. Phillips and Dr. Alvarez in 1 to 2 weeks. JORDAN/MODL Voice ID: [id number] Report ID: [id number] MTDD
== END 2018-08-08 09:33 | disposition home or self-care (01) | DRG 871 ==
LOC: ER 21:05 → ERHOLD 07-31 01:27 → 3RD-ICU 07-31 02:07 → 4TH 08-04 20:45
PROVIDERS: ADMIT Internal Medicine; ATTEND Internal Medicine
PROC: 5A2204Z Restoration of Cardiac Rhythm, Single (ICD-10-PCS; principal; 2018-08-04)
DX: A41.51 Sepsis due to Escherichia coli [E. coli] (principal); R65.21 Severe sepsis with septic shock; N39.0 Urinary tract infection, site not specified; Z68.43 Body mass index [BMI] 50.0-59.9, adult; I48.0 Paroxysmal atrial fibrillation; Z79.52 Long term (current) use of systemic steroids; N35.9 Urethral stricture, unspecified; I10 Essential (primary) hypertension; G47.30 Sleep apnea, unspecified; K43.9 Ventral hernia without obstruction or gangrene; Z91.040 Latex allergy status; M06.9 Rheumatoid arthritis, unspecified; E66.9 Obesity, unspecified
CPT/HCPCS: 36415; 71045; 76770; 80048; 80053; 80170; 81003; 81015; 83605; 83690; 83735; 84484; 85025; 85652; 87040; 87077; 87086; 87088; 87186; 87205; 93005; 99291; 99292; J0696; J1580; J1642; J1720; J2250; J2405; J2543; J2550; J3010; J3370; J7030; J7060; J7512

== ENCOUNTER 2018-10-05 11:04 | Emergency (ER) | payer OTHER ==
--- OUTSIDE RECORDS SUMMARY | 2018-10-05 11:07 | XMS REPORT | Clinical Summary ---
:1960 Author Organization [facility] Address [address] [place] [address] Care Team Providers Name Role Phone Asked, None Given Primary Care Provider Unavailable Allergies Active Allergy Reactions Severity Noted Date Comments Meperidine GI Intolerance High 03/19/2017 "severe vomiting" Latex Anaphylaxis High 03/19/2017 Infliximab Anaphylaxis High 03/19/2017 Medications Medication Sig Dispensed Refills Start Date End Date Status predniSONE Take 5 mg by 0 Active (DELTASONE) 10 MG mouth every tablet morning. folic acid (FOLVITE) Take 1 mg by 0 Active 1 MG tablet mouth daily. ARIPiprazole Take 5 mg by 0 Active (ABILIFY) 5 MG mouth every tablet morning. tamsulosin (FLOMAX) Take 0.4 mg 0 Active 0.4 mg by mouth capsule,extended every release 24hr morning. DULOXETINE HCL Take 60 mg by 0 Active (CYMBALTA ORAL) mouth every morning. Takes two of the 60mg in the morning rivaroxaban Take 15 mg by 0 Active (XARELTO) tablet mouth every morning. multivitamin capsule Take 1 0 Active capsule by mouth daily. ferrous sulfate Take 325 mg 0 Active (IRON) 325 (65 FE) by mouth MG tablet daily. ascorbic acid, Take 500 mg 0 Active vitamin C, (ascorbic by mouth acid with philip hips) daily. 500 MG tablet sotalol (BETAPACE) Take 120 mg 0 Active 120 MG tablet by mouth 2 (two) times a day. chlorthalidone Take 25 mg by 0 Active (HYGROTEN) 25 MG mouth every tablet morning. spironolactone Take 50 mg by 0 Active (ALDACTONE) 50 MG mouth 2 (two) tablet times a day. acetaZOLAMIDE Take 250 mg 0 Active (DIAMOX) 250 MG by mouth tablet every morning. ANAKINRA (KINERET Inject 100 mg 0 Active SUBQ) under the skin daily. omeprazole TAKE 1 90 capsule 2 10/25/2017 Active (PriLOSEC) 20 MG CAPSULE (20 capsule MG TOTAL) BY MOUTH DAILY FOR 180 DAYS. sulfaSALAzine Take 500 mg 0 Discontinued (AZULFIDINE) 500 mg by mouth 2 [...] Encounters Date Type Specialty Care Team Description 09/29/2018 Hospital Encounter Radiology 09/29/2018 Hospital Encounter Radiology 09/29/2018 Hospital Encounter Radiology 09/29/2018 Hospital Encounter Radiology 08/09/2018 Refill General Surgery Jackelin Nguyễn PA 03/09/2018 Office Visit General Surgery Yo Khan Morbid obesity with BMI of 45.0-49.9, adult (Primary Dx); MD Antoine Obstructive sleep apnea; S/P laparoscopic sleeve gastrectomy 11/05/2017 Hospital Encounter Radiology Yo Khan Canceled (Diego Schultz MD Order Error) 11/05/2017 Hospital Encounter Radiology Yo Khan Canceled (Diego Schultz MD Order Error) 11/05/2017 Hospital Encounter Radiology Yo Khan Canceled (Diego Schultz MD Order Error) 11/05/2017 Hospital Encounter Radiology Yo Khan Canceled (Diego Schultz MD Order Error) 11/05/2017 Office Visit General Surgery Sd Torres S/P laparoscopic sleeve gastrectomy (Primary Dx); CANDELARIO Alicia Morbid obesity with BMI of 45.0-49.9, adult 10/24/2017 Refill General Surgery Jackelin Nguyễn PA after 10/04/2017 Family History Medical History Relation Name Comments Cirrhosis Brother Hepatitis Brother Cancer Father Melanoma Father Cancer Mother Hypertension Mother Lung cancer Mother Osteoporosis Mother Relation Name Status Comments Brother Alive Father Mother Alive Social History Tobacco Use Types Packs/Day Years Used Date Never Smoker Smokeless Tobacco: Never Used Alcohol Use Drinks/Week oz/Week Comments No Sex Assigned at Date Recorded Not on file Job Start Date Occupation Industry Not on file Not on file Not on file Travel History Travel Start Travel End No recent travel history available. Last Filed Vital Signs Vital Sign Reading [...] Health Maintenance Due Date Last Done Comments MMR VACCINES (1 of 1 - Standard 1962 series) VARICELLA VACCINES (1 of 2 - 1974 2-dose adolescent series) SHINGRIX VACCINE (1 of 2) 2011 INFLUENZA VACCINE 06/22/2018 COLON CANCER SCREENING 03/05/2026 03/05/2016 HEPATITIS B VACCINES Aged Out No longer eligible based on patient's age to complete this topic IPV VACCINES Aged Out No longer eligible based on patient's age to complete this topic MENINGOCOCCAL VACCINE Aged Out No longer eligible based on patient's age to complete this topic Procedures Procedure Name Priority Date/Time Associated Diagnosis Comments CT ABD/PELVIC Routine 10/16/2017 1:04 PM Results for this [employer]TERNAL [employer] procedure are in the results section. XR ABD/PELVIC Routine 10/14/2017 3:18 PM Results for this [employer]NAL [employer] procedure are in the results section. XR ABD/PELVIC Routine 10/12/2017 8:55 AM Results for this EXTERNAL [employer] procedure are in the results section. CT ABD/PELVIC Routine 10/08/2017 12:13 PM Results for this EXTERNAL [employer] procedure are in the results section. after 10/04/[address] Abd/Pelvic External Study (10/16/2017 1:04 PM [employer])Only the most recent of2 resultswithin the time period is included. Narrative Performed At This exam was not acquired at a [facility] facility and has not been [facility] interpreted by a [facility] Provider.The exam was imported into our imaging system for comparisons purposes. Performing Organization Address [facility] Phone Number [facility] [address] [place] [address] XR Abd/Pelvic External Study (10/14/2017 3:18 PM [employer])Only the most recent of2 resultswithin the time period is included. Narrative Performed At This exam was not acquired at a [facility] facility and has not been [facility] interpreted by a [facility] Provider.The exam was imported into our imaging system for comparisons purposes. Performing Organization Address [facility] Phone Number [facility] [address] [place] [address] after 10/04/2017 Insurance Payer Benefit Plan / Group Subscriber ID Type Phone Address MEDICARE MEDICARE PART A AND B xxxxxxxxxx Medicare [place], [place] HEALTH FIRST HE[facility] FIRST xxxxxxxxxxx Commercial Advance Directives Patient has advance care planning documents on file. For more information, please contact:[address] [address]
[2018-10-05] MEDS ORDERED: PROMETHAZINE 25 MG/ML VIAL ONE ×3 (11:44→17:18)
[2018-10-05] MEDS ORDERED: FENTANYL CITR 100 MCG/2 ML ONE ×3 (11:45→15:05)
[2018-10-05] MEDS ORDERED: NA CHLORIDE 0.9% 500 ML ONE (11:45)
[2018-10-05 12:00] LABS: Absolute Lymphocytes (CBC) 1.7 K/uL (0.7-4.9); Absolute Monocytes 1.5 K/uL (0.1-1.3); Absolute Neutrophil 18.4 K/uL (1.8-8.0); Basophils % 0.4 % (0-1.3); Eosinophils % 1.3 % (0-4.4); Hematocrit 43.2 % (39.6-49.0); Lymphocytes % 7.9 % (15.3-44.8); MCH 32.1 pg (27.0-35.0); Monocytes % 6.9 % (3.3-12.3); RBC Red Blood Cell Count 4.55 M/uL (4.33-5.43)
[2018-10-05] MEDS ORDERED: HYDROCORTISONE SUC 100 MG INJ ONE (12:10)
[2018-10-05] MEDS ORDERED: WATER FOR INJ,STERILE 10 ML ONE (12:11)
[2018-10-05 12:23] LABS: Blood Morphology Comment NOT SEEN (NOT SEEN); Platelet Estimate ADEQ
[2018-10-05 12:27] LABS: Albumin 3.8 g/dL (3.4-5.0); Bilirubin Direct 0.2 mg/dL (0-0.2); Bilirubin Total 0.6 mg/dL (0.2-1.0); Protein, Total 7.5 g/dL (6.4-8.2)
[2018-10-05 12:30] LABS: Potassium 2.9 mmol/L (3.5-5.1)
--- NOTE | 2018-10-05 12:59 | RAD REPORT ---
EXAM DESCRIPTION: CTAbdomen Pelvis W Contrast - 10/05/2018 12:44 pm CLINICAL HISTORY: Abdominal pain. ABD PAIN COMPARISON: Abdomen Pelvis W Contrast dated 12/27/2017; Abdomen Pelvis W Contrast dated 10/16/2017 ; Abdomen Pelvis W Contrast dated 02/28/2016; Stone Protocol dated 06/22/2018 TECHNIQUE: Biphasic CT imaging of the abdomen and pelvis was performed with 100 ml non-ionic IV cont rast. Delayed sequence was also performed. All CT scans are performed using dose optimization technique as appropriate and may include automated exposure control or mA/KV adjustment according to patient size. FINDINGS: The lung bases are clear. The liver demonstrates no focal mass or intrahepatic biliary dilatation. Postsurgical changes are pre sent around the stomach. The gallbladder appears surgically absent. Postsurgical clips are present ab out the aorta. The spleen has a normal appearance. Pancreas is normal. Markedly atrophic left kidney seen. The right kidney mildly enlarged with several cortical cysts. Multiple dilated small bowel loops are present in the anterior abdomen. The most significantly dilate d bowel loop measures 8.9 cm. A large ventral hernia is present with multiple complex additional outp ouchings. Free air is present anteriorly in the hernia sac indicating perforation. Intra-abdominal a bscess is not seen. No evidence of significant lymphadenopathy. Bilateral and hip replacements present. Prominent lumbosacral degenerative changes. IMPRESSION: Significant small-bowel obstruction is present. Free air is present anteriorly in the he rnia sac compatible with perforation. Findings were discussed with Dr. Keating in the ER 12:50 p.m. 10/05/2018 by telephone.
--- NOTE | 2018-10-05 13:14 | EDPHYS ---
Physician Documentation [facility] Name: Husam Vela Age: 57 yrs Sex: Male : 1960 Arrival Date: 10/05/2018 Time: 11:05 Bed 2 Private MD: Yuliana Tubbs C ED Physician Ezekiel Keating HPI: 10/05 13:13 This 57 yrs old Male presents to ER via Wheelchair with complaints of kdr Vomiting \T\ abdominal pain. 13:13 The patient presents to the emergency department with nausea, vomiting, that is kdr intermittent, described as undigested food, Bilious. Onset: The symptoms/episode began/occurred last night. Possible causes: unknown. The symptoms are aggravated by movement, pressure. Associated signs and symptoms: Pertinent positives: abdominal pain, constipation, nausea, vomiting. Severity of symptoms: At their worst the symptoms were moderate severe just prior to arrival, in the emergency department the symptoms are unchanged. The patient has experienced similar episodes in the past, a few times. The patient has not recently seen a physician. Pain is worse today than with previous abdominal issues. Historical: - Allergies: 11:17 Demerol; aj 11:17 Latex, Natural Rubber; aj 11:17 Remicade; aj - Home Meds: 11:17 Abilify 5 mg Oral tab 1 tab once daily [Active]; anakinra subcutaneous once daily aj [Active]; chlorthalidone 25 mg Oral tab 1 tab once daily [Active]; Cymbalta 60 mg Oral cpDR 2 caps once daily [Active]; Flomax 0.4 mg Oral cp24 1 cap once daily [Active]; Yermo 7.5-325 mg Oral tab 1 tab every 6 hours [Active]; prednisone 5 mg Oral tab 1 tab once daily [Active]; Protonix 40 mg Oral chew 1 tab once daily [Active]; sotalol 80 mg Oral tab 1 tab 2 times per day [Active]; spironolactone 50 mg Oral tab 1 tab 2 times per day [Active]; Xarelto 20 mg Oral tab 1 tab once daily [Active]; - PMHx: 11:17 Atrial Fib; Hypertension; 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 - Social history:: Smoking status: Patient/guardian denies using tobacco. - Ebola Screening: : Patient negative for fever greater than or equal to 101.5 degrees Fahrenheit, and additional compatible Ebola Virus Disease symptoms Patient denies exposure to infectious person Patient denies travel to an Ebola-affected area in the 21 days before illness onset No symptoms or risks identified at this time. ROS: 13:13 Constitutional: Negative for fever, chills, and weight loss, Eyes: Negative for injury, kdr pain, redness, and discharge, Neck: Negative for injury, pain, and swelling, Cardiovascular: Negative for chest pain, palpitations, and edema, Respiratory: Negative for shortness of breath, cough, wheezing, and pleuritic chest pain, Back: Negative for injury and pain, MS/Extremity: Negative for injury and deformity, Skin: Negative for injury, rash, and discoloration, Neuro: Negative for headache, weakness, numbness, tingling, and seizure activity. Psych: Negative for depression, anxiety, suicide ideation, homicidal ideation, and hallucinations, Allergy/Immunology: Negative for hives, rash, and allergies, Endocrine: Negative for neck swelling, polydipsia, polyuria, polyphagia, and marked weight changes, Hematologic/Lymphatic: Negative for swollen nodes, abnormal bleeding, and unusual bruising. 13:13 Abdomen/GI: Positive for abdominal pain, nausea and vomiting, constipation, abdominal cramps, abdominal distension, flatulence, Negative for diarrhea, anorexia, dysphagia, hematemesis, black/tarry stool, rectal pain, rectal bleeding. Exam: 13:13 Constitutional: This is a well developed, well nourished patient who is awake, alert, kdr and in mild to moderate distress. Head/Face: Normocephalic, atraumatic. Eyes: Pupils equal round and reactive to light, extra-ocular motions intact. Lids and lashes normal. Conjunctiva and sclera are non-icteric and not injected. Cornea within normal limits. Periorbital areas with no swelling, redness, or edema. Neck: Trachea midline, no thyromegaly or masses palpated, and no cervical lymphadenopathy. Supple, full range of motion without nuchal rigidity, or vertebral point tenderness. No Meningismus. Chest/axilla: Normal chest wall appearance and motion. Nontender with no deformity. No lesions are appreciated. Cardiovascular: Regular rate and rhythm with a normal S1 and S2. No gallops, murmurs, or rubs. Normal PMI, no JVD. No pulse deficits. Respiratory: Lungs have equal breath sounds bilaterally, clear to auscultation and percussion. No rales, rhonchi or wheezes noted. No increased work of breathing, no retractions or nasal flaring. Back: No spinal tenderness. No costovertebral tenderness. Full range of motion. Skin: Warm, dry with normal turgor. Normal color with no rashes, no lesions, and no evidence of cellulitis. Neuro: Awake and alert, GCS 15, oriented to person, place, time, and situation. Cranial nerves II-XII grossly intact. Motor strength 5/5 in all extremities. Sensory grossly intact. Cerebellar exam normal. Normal gait. Psych: Awake, alert, with orientation to person, place and time. Behavior, mood, and affect are within normal limits. 13:13 Abdomen/GI: Inspection: distension, that is moderate, obese scar(s), are noted in the abdomen diffusely. Vital Signs: 11:17 BP 103 / 91; Pulse 108; Resp 22; Pulse Ox 93% on R/A; Weight 171 kg; Height 6 ft. 2 in. aj (187.96 cm) (R); 11:54 BP 116 / 43; Pulse 96; Temp 96.5(TE); Pulse Ox 93% on R/A; ss 13:00 BP 110 / 82; Pulse 95; Resp 18; Pulse Ox 96% on R/A; ss 14:00 BP 106 / 75; Pulse 98; Resp 19; Pulse Ox 97% on R/A; Pain 5/10; ss 15:06 BP 113 / 42; Pulse 96; Resp 18; Temp 96.9(TE); Pulse Ox 100% on R/A; Pain 7/10; ss 17:16 BP 105 / 68; Pulse 95; Resp 18; Pulse Ox 95% on R/A; ss 11:17 Body Mass Index 48.40 (171.00 kg, 187.96 cm) aj MDM: 13:12 Patient medically screened. kdr 13:13 Data reviewed: vital signs, nurses notes, lab test result(s), radiologic studies. kdr Counseling: I had a detailed discussion with the patient and/or guardian regarding: the historical points, exam findings, and any diagnostic results supporting the discharge/admit diagnosis, lab results, radiology results, the need to transfer to another facility, [facility] does not immediately have the required specialist. 10/05 11:20 Order name: Basic Metabolic Panel; Complete Time: 14:39 kdr 10/05 11:20 Order name: CBC with Diff; Complete Time: 14:39 kdr 10/05 11:20 Order name: Creatinine for Radiology; Complete Time: 14:39 kdr 10/05 11:20 Order name: Hepatic Function; Complete Time: 14:39 kdr 10/05 11:20 Order name: Lipase; Complete Time: 14:39 kdr 10/05 12:23 Order name: Manual Differential; Complete Time: 14:39 EDMS 10/05 11:20 Order name: CT Abd/Pelvis - W/Contrast; Complete Time: 14:39 kdr 10/05 11:20 Order name: IV Saline Lock; Complete Time: 11:34 kdr 10/05 11:20 Order name: Labs collected and sent; Complete Time: 11:34 kdr Administered Medications: 11:40 Drug: Phenergan 25 mg Route: IVP; Site: Port-a-cath; ss 12:12 Follow up: Response: No adverse reaction; Nausea is decreased ss 11:42 Drug: fentaNYL (PF) 50 mcg Route: IVP; Site: right antecubital; ss 12:10 Follow up: Response: No adverse reaction; No adverse reaction, pain is minimally ss decreased 11:42 Drug: NS 0.9% 500 ml Volume: 500 ml; Route: IV; Rate: 1 bolus; Site: Port-a-cath; ss 13:25 Follow up: IV Status: Completed infusion ss 11:59 Drug: fentaNYL (PF) 50 mcg Route: IVP; Site: Port-a-cath; ss 13:25 Follow up: Response: No adverse reaction; Pain is decreased ss 12:11 Drug: Solu-CORTEF 100 mg Route: IVP; Site: Port-a-cath; ss 13:26 Follow up: Response: No adverse reaction ss 13:25 Drug: fentaNYL (PF) 75 mcg Route: IVP; Site: Port-a-cath; ss 14:55 Follow up: Response: No adverse reaction; Pain is decreased ss 13:50 Drug: Zosyn 4.5 grams Route: IVPB; Infused Over: 60 mins; Site: right antecubital; ss 14:55 Follow up: IV Status: Completed infusion ss 14:00 Drug: vancoMYCIN 1.5 grams Route: IVPB; Rate: calculated rate; Site: Port-a-cath; ss 16:15 Follow up: IV Status: Completed infusion ss 15:00 Drug: Phenergan 25 mg Route: IVP; Site: right antecubital; ss 17:06 Follow up: Response: No adverse reaction; Nausea is decreased ss 15:06 Drug: fentaNYL (PF) 75 mcg Route: IVP; Site: right antecubital; ss 17:04 Follow up: Response: No adverse reaction; Pain is decreased ss 17:00 Drug: fentaNYL (PF) 50 mcg Route: IVP; Site: right antecubital; ss 17:59 Follow up: Response: No adverse reaction; Pain is decreased ss 17:15 Drug: Phenergan 25 mg Route: IVP; Site: right antecubital; ss 17:59 Follow up: Response: No adverse reaction; Nausea is decreased ss Disposition: 10/05/18 13:12 Transfer ordered to [facility]. Diagnosis is Small Bowel Obstruction with Perforation. - Reason for transfer: Higher level of care. - Accepting physician is [facility]. - Condition is Serious. - Problem is new. - Symptoms have improved. Signatures: Dispatcher [employer] Siena Lopes, RN RN Ezekiel Banuelos MD MD kdr Viky Alonso RN RN ss Corrections: (The following items were deleted from the chart) 17:58 13:12 10/05/2018 13:12 Transfer ordered to [facility]. Diagnosis is ss Small Bowel Obstruction with Perforation. Reason for transfer: Higher level of care. Accepting physician is [facility]. Condition is Serious. Problem is new. Symptoms have improved. kdr
--- NOTE | 2018-10-05 13:14 | ER ---
Nurse's Notes [facility] Name: Husam Vela Age: 57 yrs Sex: Male : 1960 Arrival Date: 10/05/2018 Time: 11:05 Bed 2 Private MD: Yuliana Tubbs C Diagnosis: Small Bowel Obstruction with Perforation Presentation: 10/05 11:15 Presenting complaint: Patient states: LLQ abdominal pain and uncontrolled vomiting aj since this AM. Transition of care: patient was not received from another setting of care. Onset of symptoms was October 05, 2018. Risk Assessment: Do you want to hurt yourself or someone else? Patient reports no desire to harm self or others. Initial Sepsis Screen: Does the patient meet any 2 criteria? No. Patient's initial sepsis screen is negative. Does the patient have a suspected source of infection? No. Patient's initial sepsis screen is negative. Care prior to arrival: None. 11:15 Method Of Arrival: Wheelchair aj 11:15 Acuity: CECI 3 aj Triage Assessment: 11:17 General: Appears in no apparent distress. uncomfortable, obese, Behavior is calm, aj cooperative, appropriate for age. Pain: Complains of pain in left lower quadrant. Neuro: Level of Consciousness is awake, alert, obeys commands, Oriented to person, place, time, situation, Appropriate for age. Respiratory: Airway is patent Respiratory effort is even, unlabored, Respiratory pattern is regular, symmetrical. GI: Abdomen is obese, Reports lower abdominal pain, nausea, vomiting. Derm: Skin is intact, is thin, Skin is pale. Historical: - Allergies: 11:17 Demerol; aj 11:17 Latex, Natural Rubber; aj 11:17 Remicade; aj - Home Meds: 11:17 Abilify 5 mg Oral tab 1 tab once daily [Active]; anakinra subcutaneous once daily aj [Active]; chlorthalidone 25 mg Oral tab 1 tab once daily [Active]; Cymbalta 60 mg Oral cpDR 2 caps once daily [Active]; Flomax 0.4 mg Oral cp24 1 cap once daily [Active]; Selma 7.5-325 mg Oral tab 1 tab every 6 hours [Active]; prednisone 5 mg Oral tab 1 tab once daily [Active]; Protonix 40 mg Oral chew 1 tab once daily [Active]; sotalol 80 mg Oral tab 1 tab 2 times per day [Active]; spironolactone 50 mg Oral tab 1 tab 2 times per day [Active]; Xarelto 20 mg Oral tab 1 tab once daily [Active]; - PMHx: 11:17 Atrial Fib; Hypertension; 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 - Social history:: Smoking status: Patient/guardian denies using tobacco. - Ebola Screening: : Patient negative for fever greater than or equal to 101.5 degrees Fahrenheit, and additional compatible Ebola Virus Disease symptoms Patient denies exposure to infectious person Patient denies travel to an Ebola-affected area in the 21 days before illness onset No symptoms or risks identified at this time. Screenin:13 Abuse screen: Denies threats or abuse. Denies injuries from another. Nutritional ss screening: No deficits noted. Tuberculosis screening: Never had TB. Fall Risk None identified. Assessment: 11:30 General: Appears uncomfortable, Behavior is calm, cooperative, Reports feeling ill for ss began last night. Denies fever. Pain: Complains of pain in left lower quadrant Pain currently is 8 out of 10 on a pain scale. Quality of pain is described as aching, crampy, Pain began yesterday Is continuous. Neuro: Level of Consciousness is awake, alert, obeys commands, Oriented to person, place, time, situation. Cardiovascular: Capillary refill < 3 seconds is brisk in bilateral fingers. Respiratory: Respiratory effort is even, unlabored. GI: Reports nausea, vomiting, since last night. GI: Abdomen is round irregular in shape as patient has had multiple surgeries and hernias Abdomen is tender to palpation in left upper quadrant and left lower quadrant. : indwelling brennan catheter in place. EENT: Nares are clear Oral mucosa is moist. Throat is clear. Derm: Skin is pink, warm \T\ dry. normal. 12:48 Reassessment: Pt back from CT at this time. ss 13:30 Reassessment: pt reports relief from nausea and pain after medication administration, ss however pain shortly returns especially after repositioning. 15:06 Reassessment: awaiting acceptance from [facility]. Pt c/o pain that has ss increased and nausea as well. Phenergan and Fentanyl administered as ordered by Dr. Keating. Pt is A\T\O x3, states that he is nervous given the circumstances. Verbal reassurance is given. Pt is thankful for care received. 15:58 Reassessment: awaiting acceptance/ room assignment from [facility]. 16:00 Reassessment: Patient appears in no apparent distress at this time. Patient and/or ss family updated on plan of care and expected duration. Pain level reassessed. Patient is alert, oriented x 3, equal unlabored respirations, skin warm/dry/pink. 16:50 Reassessment: Attempted to call report to [facility]. 5 17:03 Reassessment: [facility] Awaiting EMS ss transportation. 17:52 Reassessment: Patient appears in no apparent distress at this time. Patient and/or ss family updated on plan of care and expected duration. Pain level reassessed. Patient is alert, oriented x 3, equal unlabored respirations, skin warm/dry/pink. pain and nausea have improved after medication administration. EMS here at this time to transfer patient. Vital Signs: 11:17 BP 103 / 91; Pulse 108; Resp 22; Pulse Ox 93% on R/A; Weight 171 kg; Height 6 ft. 2 in. (187.96 cm) (R); 11:54 BP 116 / 43; Pulse 96; Temp 96.5(TE); Pulse Ox 93% on R/A; ss 13:00 BP 110 / 82; Pulse 95; Resp 18; Pulse Ox 96% on R/A; ss 14:00 BP 106 / 75; Pulse 98; Resp 19; Pulse Ox 97% on R/A; Pain 5/10; ss 15:06 BP 113 / 42; Pulse 96; Resp 18; Temp 96.9(TE); Pulse Ox 100% on R/A; Pain 7/10; ss 17:16 BP 105 / 68; Pulse 95; Resp 18; Pulse Ox 95% on R/A; ss 11:17 Body Mass Index 48.40 (171.00 kg, 187.96 cm) ED Course: 11:05 Patient arrived in ED. as 11:06 Yuliana Tubbs MD is Private Physician. as 11:10 Ezekiel Keating MD is Attending Physician. kdr 11:15 Triage completed. aj 11:17 Arm band placed on left wrist. Patient placed in an exam room, on a stretcher, on pulse aj oximetry. 11:27 Radiology exam delayed due to lab results not completed at this time. (BUN/Creatinine). eh 11:30 Accessed Port-a-Cath. Clean \T\ dry. Dressing intact. Good blood return. ss 11:34 Viky Alonso, STACEY is Primary Nurse. ss 11:38 Inserted saline lock: 22 gauge in right antecubital area, using aseptic technique. ss Blood collected. 11:53 Patient maintains SpO2 saturation greater than 95% on room air. ss 12:13 Patient has correct armband on for positive identification. Call light in reach. Side ss rails up X 1. cleaning staff supervisor on. Pulse ox on. NIBP on. Warm blanket given. 12:[address] via stretcher. vr 12:44 CT Abd/Pelvis - W/Contrast In Process Unspecified. EDMS 17:53 No provider procedures requiring assistance completed. Patient transferred, IV remains ss in place. Administered Medications: 11:40 Drug: Phenergan 25 mg Route: IVP; Site: Port-a-cath; ss 12:12 Follow up: Response: No adverse reaction; Nausea is decreased ss 11:42 Drug: fentaNYL (PF) 50 mcg Route: IVP; Site: right antecubital; ss 12:10 Follow up: Response: No adverse reaction; No adverse reaction, pain is minimally ss decreased 11:42 Drug: NS 0.9% 500 ml Volume: 500 ml; Route: IV; Rate: 1 bolus; Site: Port-a-cath; ss 13:25 Follow up: IV Status: Completed infusion ss 11:59 Drug: fentaNYL (PF) 50 mcg Route: IVP; Site: Port-a-cath; ss 13:25 Follow up: Response: No adverse reaction; Pain is decreased ss 12:11 Drug: Solu-CORTEF 100 mg Route: IVP; Site: Port-a-cath; ss 13:26 Follow up: Response: No adverse reaction ss 13:25 Drug: fentaNYL (PF) 75 mcg Route: IVP; Site: Port-a-cath; ss 14:55 Follow up: Response: No adverse reaction; Pain is decreased ss 13:50 Drug: Zosyn 4.5 grams Route: IVPB; Infused Over: 60 mins; Site: right antecubital; ss 14:55 Follow up: IV Status: Completed infusion ss 14:00 Drug: vancoMYCIN 1.5 grams Route: IVPB; Rate: calculated rate; Site: Port-a-cath; ss 16:15 Follow up: IV Status: Completed infusion ss 15:00 Drug: Phenergan 25 mg Route: IVP; Site: right antecubital; ss 17:06 Follow up: Response: No adverse reaction; Nausea is decreased ss 15:06 Drug: fentaNYL (PF) 75 mcg Route: IVP; Site: right antecubital; ss 17:04 Follow up: Response: No adverse reaction; Pain is decreased ss 17:00 Drug: fentaNYL (PF) 50 mcg Route: IVP; Site: right antecubital; ss 17:59 Follow up: Response: No adverse reaction; Pain is decreased ss 17:15 Drug: Phenergan 25 mg Route: IVP; Site: right antecubital; ss 17:59 Follow up: Response: No adverse reaction; Nausea is decreased ss Output: 17:53 Urine: 700ml (Brennan); Total: 700ml. ss Outcome: 13:12 ER care complete, transfer ordered by . kdr 17:54 Transferred by ground EMS to [facility]. ss 17:54 Condition: stable 17:54 Instructed on the need for transfer. 17:58 Patient left the ED. ss Signatures: Dispatcher [employer] EDMS Paz Del Cid RN RN [id number] Myers, Amanda, RN RN aj Rittger, Kevin, MD MD kdr Hagler, Ervin eh Martinez, Amelia as Smirch, Shelby, RN RN ss Davis, Victoria vr Corrections: (The following items were deleted from the chart) 15:13 11:30 GI: Abdomen is round ss ss
[2018-10-05] MEDS ORDERED: VANCOMYCIN 1.5 GM in NA CHLORIDE 0.9% 500 ML IVPB ONE (14:00)
[2018-10-05] MEDS ORDERED: PIPER/TAZO/NS 4.5gm 4.5 GM/100 ML BAG IV ONE (14:00)
[2018-10-05] MEDS ORDERED: NS KCL 20MEQ 1,000 ML IV ONE (16:44)
[2018-10-05 19:57] VITALS: TEMP 96.9
[2018-10-05 19:58] VITALS: BP 105/68; O2SAT 95
== END 2018-10-05 17:58 | disposition short-term general hospital (02) ==
LOC: ER 11:04
DX: K56.699 Other intestinal obstruction unspecified as to partial versus complete obstruction (principal); K63.1 Perforation of intestine (nontraumatic); I10 Essential (primary) hypertension; I48.91 Unspecified atrial fibrillation; Z79.01 Long term (current) use of anticoagulants; Z88.5 Allergy status to narcotic agent; Z88.8 Allergy status to other drugs, medicaments and biological substances; Z91.040 Latex allergy status
CPT/HCPCS: 36415; 74177; 80048; 80076; 83690; 85025; 99285; J1720; J2550; J3010; Q9967

== ENCOUNTER 2018-10-20 13:39 | Inpatient (IN) | payer OTHER ==
--- NOTE | 2018-10-20 13:39 | R.PREADM ---
SCREENING DATE AND TIME 10/19/2018 13:47 (BOSS MINER) ANTICIPATED REHAB ADMISSION DATE 10/21/2018 REFERRING FACILITY [facility] REFERRAL DATE AND TIME 10/19/2018 13:47 (BOSS MINER) ACUTE ADMIT DATE 10/05/2018 Previous Rehabilitation(s): No. ACUTE PROCESSOR SOLID PROPELLANT/DC BUILDING WRECKER Gauri Bolivar REFERRING PHYSICIAN Anthony Lyn REHAB FACILITY [facility] CLINICAL LIAISON [place] PHYSICIAN REVIEWER Dr. Jesus Chandler M.D. [facility]# [id number] [id number] NAME HUSAM ESTRADA ADDRESS [address] [place] [address] PHONE ZIP [address] DATE OF 1960 AGE 57 SSN# [id number] GENDER male MARITAL STATUS RACE white ADMIT FROM 02 - [facility] PRE-HOSPITAL LIVING SETTING 01 - Home (private home/apt. board/care, assisted living, retirement, transitional living) HOME TYPE AND DETAILS Type of home: single family house # of levels in the residence: 1 # of steps within the residence: 0 # of steps to enter the residence: 0 PRE-HOSPITAL LIVING WITH Family/Relatives FAMILY SUPPORT Yes PRIMARY FAMILY CONTACT NAME ATUL ESTRADA PRIMARY FAMILY CONTACT PHONE PRIMARY FAMILY CONTACT RELATIONSHIP PHONE PRIMARY FAMILY CONTACT ON ADM.? no IS PRIMARY FAMILY CONTACT AUTH. REP.? no 1ST EMERGENCY CONTACT ATUL ESTRADA 1ST CONTACT PHONE 1ST CONTACT RELATIONSHIP PHONE 1ST CONTACT ON ADM. no IS 1ST CONTACT AUTH. REP.? no PHONE 2ND CONTACT ON ADM.? no PATIENT EMPLOYMENT STATUS Disabled PATIENT EMPLOYER No Employer PAYOR INFORMATION: 1ST PAYOR NAME [employer] 1ST PAYOR INJURY/ILLNESS DUE TO ACCIDENT? No ANOTHER LIBERTARIAN RESPONSIBLE? No PRIMARY REHAB/ACUTE DIAGNOSIS: SMALL BOWEL OBSTRUCTION ONSET DATE 10/05/2018 REHAB IMPAIRMENT CATEGORY (MIGUEL): 20 Miscellaneous (Misc) does NOT meet 60% rule PRIMARY DIAGNOSIS-RELATED SURGERIES: Exlap with small bowel resection COMORBID REHAB/ACUTE DIAGNOSES: - N/A MORBID OBESITY URETHRAL STRICTURE ACUTE CYSTITIS OBSTRUCTIVE SLEEP APNEA GERD ATRIAL FIBRILLATION ESSENTIAL HYPERTENSION PULMONARY EMBOLISM DEEP VEIN THROMBOSIS RHEUMATOID ARTHRITIS BOWEL PERFORATION TESTICULAR CANCER INTERVENTIONS: - Morbid Obesity Nutrition Safety Weights - GERD Altered diet Elevation of head of bed Medications Nausea/vomiting Nighttime food/fluid restrictions Nutrition - Atrial Fibrillation Anticoagulation Medications VS - Rheumatoid Arthritis Energy conservation Exercise Joint Protection Medications RISK FOR COMPLICATIONS: - Morbid Obesity Falls Fatigue Skin integrity - GERD Alteration in sleep Aspiration Dehydration Malnutrition Pain - Atrial Fibrillation CVA Heart failure Limb embolus - Rheumatoid Arthritis Joint deformity Ligament damage SUMMARY OF ACUTE HOSPITALIZATION: Pt. is a 57 yo Right-handed white male. On 10/05/2018 he was admitted to [facility] with diagnosis SMALL BOWEL OBSTRUCTION. His impairment category is Debility 16 - Debility (16). Pre-morbidly, Pt. was independent/mod-I in Communication, Social Cognition, Self-Care, Locomotion, Sp hincter Control, and Transfers Control; and he had good Sphincter Control. Currently, he has deficits of Balance, Self-Care, Locomotion, Endurance, Safety Awareness, and Transf ers Control. Pt. is now referred to [facility] for acute in-patient rehabilitation in order to maximize patient's functional independence in activities of daily living, strength, ROM, and mobi lity. Patient has realistic goal of being discharged at assistance level 6-Erasmo to reside at Home with Fam james/Relatives. Mr. Husam Estrada is a 57 year old male that lives in a [address] house. He goes to grocery stores several ti mes a week. On 10/05/2018, he had an abdominal pain with nausea and vomiting and was seen to have small bowel obstruction and was admitted to [facility] and treated. He is now medically stable but in need of 24-hour nursing, doctor supervision and oversite while receiving active and The patient is reasonably expected to participate in 3hours of therapy a day/15 hours per week and receive care with an intensive interdisciplinary approach. PAST MEDICAL HISTORY ACUTE CYSTITIS ATRIAL FIBRILLATION BOWEL PERFORATION DEEP VEIN THROMBOSIS ESSENTIAL HYPERTENSION GERD MORBID OBESITY OBSTRUCTIVE SLEEP APNEA PULMONARY EMBOLISM RHEUMATOID ARTHRITIS TESTICULAR CANCER URETHRAL STRICTURE PAST SURGICAL HISTORY: ABDOMINAL SURGERY CARDIAC ELECTROPHYSIOLOGY MAPPING AND ABLATION FRACTURE SURGERY GASTRECTOMY, SLEEVE LAPAROSCOPIC INCISION AND DRAINAGE HIP KNEE SURGERY ORCHIECTOMY, RADICAL ABDOMINAL APPROACH REPLACEMENT TOTAL KNEE TOTAL HIP ARTHROPLASTY BILATERAL TUNNELED VENOUS CATHETER PLACEMENT VENTRAL HERNIA REPAIR WRIST SURGERY MEDICATION ALLERGIES: Demerol REMICADE ENVIRONMENTAL ALLERGIES: None Known - Substance Allergies None Known - Other Allergies LATEX CODE STATUS: Full code WEIGHT/HEIGHT/BMI: WEIGHT 412 lbs HEIGHT 6' 2" BMI 52.9 DIET: - Diet Type BARIATRIC FULLS - Diet - Solid Texture Regular - Diet - Liquid Texture Regular - Tube Feed N/A SKIN DIAGRAM: Incision on Abdomen; extent - average; stage - NS(Not Stageable). Treatment - Per Physician's Orders. REVIEW OF SYSTEMS: - Gen Alert and awake Lying in bed No apparent distress Oriented to: person, time, and place - Vital Signs Temperature: 97.4 F SBP/DBP: 109/59 Pulse: 66 Resp: 18 Vital signs stable, afebrile - CVS RRR VITAL SIGNS Temperature: 97.4 F SBP/DBP: 109/59 Pulse: 66 Resp: 18 Vital signs stable, afebrile CURRENT SPHINCTER CONTROL: Pre-hospital bladder status: continent # of bladder accidents in the last 7 days prior to screenin Pre-hospital bowel status: continent # of bowel accidents in the last 7 days prior to screenin Last Bowel Movement Date: DETAILED CURRENT FUNCTIONAL STATUS: - Bladder accident frequency: Ind - No accidents in the past 7 days - Bowel accident frequency: Ind - No accidents in the past 7 days - Walking score based on distance walked: 3(>=150ft) - Wheelchair score based on distance traveled: 0(N/A) FUNCTIONAL STATUS: - Self-Care A. Eating Ind sup B. Grooming Ind sup C. Bathing Ind sup D. Dressing - Upper Ind sup E. Dressing - Lower Ind sup F. Toileting Ind Dep - Sphincter Control G: Bladder control Ind Dep H: Bowel control Ind Ind - Transfers Control I. Bed/Chair/Wheelchair Ind sup J. Toilet Ind Lila K. Tub/Shower Ind Ind - Locomotion L. Walk/Wheelchair (C) Ind Lila L. Walk/Wheelchair (W) Ind Lila M. Stairs Ind ADNO - Communication N. Comprehension (B) Ind Ind O. Expression (B) Ind Ind - Social Cognition P. Social Interaction Ind Ind Q. Problem Solving Ind Ind R. Memory Ind Ind - Endurance Fair - Balance Fair - Safety Awareness Fair CURRENT FUNC. DEFICITS: Balance, Self-Care, Locomotion, Endurance, Safety Awareness, and Transfers Control THERAPY NOTES FROM ACUTE CARE: Attached. SPECIAL NEEDS: - Safety Concerns Skin breakdown precautions needed due to skin breakdown risk PATIENT NEEDS ACTIVE AND ONGOING THERAPEUTIC INTERVENTION OF MULTIPLE THERAPY DISCIPLINES, INCLUDING: - Occupational Therapy Evaluate and Treat. - Physical Therapy Evaluate and Treat. PATIENT NEEDS CLOSE MEDICAL SUPERVISION BY A REHABILITATION PHYSICIAN FOR: Bowel and Bladder Management Coordination of Treatment Team Medical and Co-Morbidity Management Wound Care Pain Management DVT Management PATIENT REQUIRES 24X7 REHAB NURSING FOR MEDICAL AND FUNCTIONAL MGT. OF THE FOLLOWING DEFICITS: ADL's Ambulation Bowel and Bladder Management Communication Disease Management Medication Management Patient/Family Education Providing Safe Environment Skin Integrity Transfers Pain Management PATIENT REQUIRES INTENSIVE, COORDINATED INTERDISCIPLINARY APPROACH TO REHAB: Arranging Home Equipment/Services Discharge Planning Family Intervention/Training Laser Engineer/Case Management PATIENT REHAB POTENTIAL: Expected level of measurable improvement will be of a practical value to patient's functional capacit y or adaptations to impairments Has a viable Discharge Plan Medically appropriate; condition is sufficiently stable to participate in intensive rehab program Patient is able and expected to receive 3 hours of individualized therapy daily on at least 5 of ever y 7 days Patient's prognosis for significant practical improvement within a reasonable period of time appears Good DISCHARGE PLAN: - Estimated Length of Stay (days) 13. - Consensus on plan Discharge plan has been discussed with primary caregiver. Patient/Family is in agreement with the kalen n. Primary caregiver is in agreement with the plan. - Patient/Family Goals Return home with assistance. - Planned Living Setting Upon Discharge Home, to live with Family/Relatives. RECOMMENDED CARE LEVEL: IRF RECOMMENDATION DETAILS: Recommended Admission to Comprehensive Rehabilitation Program to Increase Functional [place] SCREENER'S COMPLETENESS CONFIRMATION: - Screening Confirmation The patient data collection on this preadmission screening form is finished PHYSICIANS REVIEW AND ADMISSION DETERMINATION Admit - Based on my review of the Pre-Admission Screening results, in my medical judgment and experie nce, I concur with the findings and recommend admission to [facility], as this patient requires an IRF level of care. SIGNATURE PANEL: Clinical Liaison - [electronically] signed by Sheba Farrar on 10/19/2018 at 17:14 (BOSS MINER) Physician Reviewer - [electronically] signed by Dr. Jesus Chandler M.D. on 10/20/2018 at 13:38 (BOSS MINER )
--- OUTSIDE RECORDS SUMMARY | 2018-10-21 22:36 | XMS REPORT | Clinical Summary ---
:1960 Author Organization [facility] Address [address] [place] [address] Care Team Providers Name Role Phone Unavailable Primary Care Provider Unavailable Allergies Not on File Medications Not on file Active Problems Not on file Social History Tobacco Use Types Packs/Day Years Used Date Never Assessed Sex Assigned at Date Recorded Not on file Job Start Date Occupation Industry Not on file Not on file Not on file Travel History Travel Start Travel End No recent travel history available. Last Filed Vital Signs Not on file Plan of Treatment Not on file Results Not on fileafter 10/20/2017
--- OUTSIDE RECORDS SUMMARY | 2018-10-21 22:36 | XMS REPORT | Clinical Summary ---
:1960 Author Organization [facility] Address [address] [place] [address] Care Team Providers Name Role Phone Asked, None Given Primary Care Provider Unavailable Allergies Active Allergy Reactions Severity Noted Date Comments Meperidine GI Intolerance High 03/19/2017 "severe vomiting" Latex Anaphylaxis High 03/19/2017 Infliximab Anaphylaxis High 03/19/2017 Medications Medication Sig Dispensed Refills Start End Status Date Date folic acid (FOLVITE) 1 Take 1 mg by 0 Active MG tablet mouth daily. multivitamin capsule Take 1 capsule 0 Active by mouth daily. ferrous sulfate (IRON) Take 325 mg by 0 Active 325 (65 FE) MG tablet mouth daily. omeprazole (PriLOSEC) TAKE 1 CAPSULE 90 capsule 2 Active 20 MG capsule (20 MG TOTAL) 7 BY MOUTH DAILY FOR 180 DAYS. sotalol (BETAPACE) 120 Take 1 tablet 60 tablet 0 Active MG tablet (120 mg total) 8 018 by mouth 2 (two) times a day for 30 days. rivaroxaban (XARELTO) Take 1 tablet 30 tablet 0 Active 20 mg tablet (20 mg total) 8 018 by mouth daily for 30 days. methylPREDNISolone Infuse 0.6 mL 18 mL 0 Active sodium succinate (25 mg total) 8 018 (Solu-MEDROL) 40 mg/mL into a venous recon soln catheter daily for 30 days. insulin lispro Inject 0-12 10 mL 12 Active (HumaLOG) 100 unit/mL Units under the 8 018 injection skin every 4 (four) hours for 30 days. soybean oil/MCT/olive Infuse 250 mL 2000 mL 0 Active oil/fish oil fat, SMOF into a venous 8 019 Lipid, (SMOFlipid) 20 catheter 2 % emulsion infusion (two) times a week for 30 days. sennosides-docusate Take 1 tablet 60 tablet 0 Active sodium (SENOKOT-S) by mouth 2 8 018 8.6-50 mg per tablet (two) times a day for 30 days. HYDROcodone-acetaminop Take 1 tablet 0 Active hen (NORCO) 10-325 mg by mouth every 8 018 per tablet 6 (six) hours as needed for moderate pain for up to 15 days. Max Daily Amount: 4 tablets ondansetron ODT Take 1 tablet 0 Active (ZOFRAN-ODT) 4 MG (4 mg total) by 8 018 disintegrating tablet mouth every 6 (six) hours as needed for nausea or vomiting for up to 30 days. sodium chloride 0.9% Infuse 12.5 mg 1 mL 0 Active solution 10 mL with into a venous 8 018 promethazine 25 mg/mL catheter every solution 12.5 mg 6 (six) hours injection as needed for nausea or vomiting for up to 30 days. promethazine Take 1 tablet 0 Active (PHENERGAN) 12.5 MG (12.5 mg total) 8 018 tablet by mouth every 6 (six) hours as needed for nausea or vomiting for up to 30 days. promethazine Insert 1 0 Active (PHENERGAN) 12.5 MG suppository 8 018 suppository (12.5 mg total) into the rectum every 6 (six) hours as needed for nausea or vomiting for up to 30 days. DULoxetine (CYMBALTA) Take 1 capsule 30 capsule 0 Active 30 MG capsule (30 mg total) 8 018 by mouth daily for 30 days. Increase by 30mg daily to home dose of 120mg daily sulfaSALAzine Take 500 mg by 0 Discontinued (AZULFIDINE) 500 mg mouth 2 (two) 017 tablet times a day. Takes 2 tabs of the 500mg BID predniSONE (DELTASONE) Take 5 mg by 0 Discontinued 10 MG tablet mouth every 018 morning. ARIPiprazole (ABILIFY) Take 5 mg by 0 Discontinued 5 MG tablet mouth every 018 morning. tamsulosin (FLOMAX) Take 0.4 mg by 0 Discontinued 0.4 mg mouth every 018 capsule,extended morning. release 24hr DULOXETINE HCL Take 60 mg by 0 Discontinued (CYMBALTA ORAL) mouth every 018 morning. Takes two of the 60mg in the morning rivaroxaban (XARELTO) Take 15 mg by 0 Discontinued tablet mouth every 018 morning. ascorbic acid, vitamin Take 500 mg by 0 Discontinued C, (ascorbic acid with mouth daily. 018 philip hips) 500 MG tablet sotalol (BETAPACE) 120 Take 120 mg by 0 Discontinued MG tablet mouth 2 (two) 018 times a day. chlorthalidone Take 25 mg by 0 Discontinued (HYGROTEN) 25 MG mouth every 018 tablet morning. spironolactone Take 50 mg by 0 Discontinued (ALDACTONE) 50 MG mouth 2 (two) 018 tablet times a day. acetaZOLAMIDE (DIAMOX) Take 250 mg by 0 Discontinued 250 MG tablet mouth every 018 morning. omeprazole (PriLOSEC) Take 1 capsule 90 capsule 1 Discontinued 20 MG capsule (20 mg total) 7 017 by mouth daily for 180 days. ANAKINRA (KINERET Inject 100 mg 0 Discontinued SUBQ) under the skin 018 daily. ARIPiprazole (ABILIFY) Take 5 mg by 0 Discontinued 5 MG tablet mouth daily. 7 018 XARELTO 20 mg tablet Take 20 mg by 3 Discontinued mouth daily. 8 018 chlorthalidone Take 25 mg by 0 Discontinued (HYGROTEN) 25 MG mouth daily. 7 018 tablet DULoxetine (CYMBALTA) Take 120 mg by 0 Discontinued 60 MG capsule mouth daily. 2 7 018 caps daily tamsulosin (FLOMAX) Take 0.4 mg by 0 Discontinued 0.4 mg capsule mouth daily. 7 018 spironolactone Take 50 mg by 0 Discontinued (ALDACTONE) 50 MG mouth 2 (two) 7 018 tablet times a day. sotalol (BETAPACE) 80 Take 80 mg by 0 Discontinued MG tablet mouth 2 (two) 8 018 times a day. HYDROcodone-acetaminop Take 1 tablet 0 Discontinued hen (NORCO) 7.5-325 mg by mouth 4 8 018 per tablet (four) times a day. Active Problems Problem Noted Date Bowel perforation 10/05/2018 Obstructive sleep apnea 03/10/2018 Ventral incisional hernia [...] Encounters Date Type Specialty Care Team Description 10/05/2018 Anesthesia Event General Surgery Giuliano Herrera MD 10/05/2018 Surgery General Surgery Yo hKan R., MD EXPLORATORY, SEGMENTAL RESECTION OF SMALL BOWEL X4 WITH LYSIS OF ADHESION 10/05/2018 - Hospital Encounter General Surgery Anthony Lyn Bowel perforation 10/21/2018 MD Antoine ([facility]) Yo Khan MD 10/05/2018 Intake Access N/A 09/29/2018 Hospital Encounter Radiology 09/29/2018 Hospital Encounter Radiology 09/29/2018 Hospital Encounter Radiology 09/29/2018 Hospital Encounter Radiology 08/09/2018 Refill General Surgery Jackelin Nguyễn PA 03/09/2018 Office Visit General Surgery ErinYo vallejo Morbid obesity with BMI of 45.0-49.9, adult (Primary Dx); MD Antoine Obstructive sleep apnea; S/P laparoscopic sleeve gastrectomy 11/05/2017 Hospital Encounter Radiology Yo Khan Canceled (Schedule R., MD Order Error) 11/05/2017 Hospital Encounter Radiology Yo Khan Canceled (Schedule R., Order Error) 11/05/2017 Hospital Encounter Radiology Yo Khan Canceled (Schedule R., Order Error) 11/05/2017 Hospital Encounter Radiology Yo Khan Canceled (Schedule R., Order Error) 11/05/2017 Office Visit General Surgery Sd Torres S/P laparoscopic sleeve gastrectomy (Primary Dx); CANDELARIO Alicia Morbid obesity with BMI of 45.0-49.9, adult 10/24/2017 Refill General Surgery Jackelin Nguyễn PA after 10/20/2017 Family History Medical History Relation Name Comments [...] Vital Sign Reading Time Taken Blood Pressure 121/61 10/21/2018 7:42 PM [facility] [employer] Pulse 79 10/21/2018 7:42 PM [facility] [employer] Temperature 36.4 C (97.5 F) 10/21/2018 7:42 PM [facility] [employer] Respiratory Rate 17 10/21/2018 7:42 PM [facility] [employer] Oxygen Saturation 95% 10/21/2018 7:42 PM [facility] [employer] Inhaled Oxygen Concentration - - Weight 187 kg (412 lb 0.6 oz) 10/06/2018 6:33 AM [facility] [employer] Height 188 cm (6' 2") 03/09/2018 1:52 PM CDT Body Mass Index 52.9 10/06/2018 6:33 AM [facility] Plan of Treatment Health Maintenance Due Date Last Done Comments SHINGRIX VACCINE (1 of 2) 2011 INFLUENZA [...] topic Procedures Procedure Name Priority Date/Time Associated Comments Diagnosis POC GLUCOSE Routine 10/21/2018 7:43 Results for this PM [employer] [employer] procedure are in the results section. POC GLUCOSE Routine 10/21/2018 5:16 Results for this PM [employer] procedure are in the results section. POC GLUCOSE Routine 10/21/2018 11:53 Results for this AM [employer] procedure are in the results section. POC GLUCOSE Routine 10/21/2018 8:01 Results for this AM [employer] procedure are in the results section. POC GLUCOSE Routine 10/21/2018 4:52 Results for this AM [employer] procedure are in the results section. POC GLUCOSE Routine 10/20/2018 11:01 Results for this PM [employer] procedure are in the results section. POC GLUCOSE Routine 10/20/2018 7:23 Results for this PM [employer] procedure are in the results section. POC GLUCOSE Routine 10/20/2018 3:48 Results for this PM [employer] procedure are in the results section. POC GLUCOSE Routine 10/20/2018 12:06 Results for this PM [employer] procedure are in the results section. POC GLUCOSE Routine 10/20/2018 7:17 Results for this AM [employer] procedure are in the results section. POC GLUCOSE Routine 10/20/2018 3:39 Results for this AM [employer] procedure are in the results section. ESTIMATED GFR Routine 10/20/2018 12:37 Results for this AM [employer] procedure are in the results section. PHOSPHORUS LEVEL Routine 10/20/2018 12:37 Results for this AM [employer] procedure are in the results section. MAGNESIUM LEVEL Routine 10/20/2018 12:37 Results for this AM [employer] procedure are in the results section. BASIC METABOLIC PANEL Routine 10/20/2018 12:37 Results for this AM [employer] procedure are in the results section. POC GLUCOSE Routine 10/20/2018 12:00 Results for this AM [employer] procedure are in the results section. POC GLUCOSE Routine 10/19/2018 8:51 Results for this PM [employer] procedure are in the results section. POC GLUCOSE Routine 10/19/2018 4:27 Results for this PM [employer] procedure are in the results section. POC GLUCOSE Routine 10/19/2018 12:29 Results for this PM [employer] procedure are in the results section. POC GLUCOSE Routine 10/19/2018 9:02 Results for this AM [employer] procedure are in the results section. POC GLUCOSE Routine 10/19/2018 4:07 Results for this AM [employer] procedure are in the results section. POC GLUCOSE Routine 10/19/2018 12:22 Results for this AM [employer] procedure are in the results section. POC GLUCOSE Routine 10/18/2018 8:09 Results for this PM [employer] procedure are in the results section. POC GLUCOSE Routine 10/18/2018 4:13 Results for this PM [employer] procedure are in the results section. POC GLUCOSE Routine 10/18/2018 1:06 Results for this PM [employer] [employer] procedure are in the results section. XR ABDOMEN 2 VW AP W Routine 10/18/2018 10:00 Results for this UPRIGHT AND/OR AM [employer] procedure are in DECUBITUS the results section. POC GLUCOSE Routine 10/18/2018 9:51 Results for this AM [employer] procedure are in the results section. POC GLUCOSE Routine 10/18/2018 7:48 Results for this AM [employer] procedure are in the results section. POC GLUCOSE Routine 10/18/2018 4:46 Results for this AM [employer] procedure are in the results section. ESTIMATED GFR Routine 10/18/2018 4:00 Results for this AM [employer] procedure are in the results section. PHOSPHORUS LEVEL Routine 10/18/2018 4:00 Results for this AM [employer] procedure are in the results section. MAGNESIUM LEVEL Routine 10/18/2018 4:00 Results for this AM [employer] procedure are in the results section. TRIGLYCERIDES Routine 10/18/2018 4:00 Results for this AM [employer] procedure are in the results section. BASIC METABOLIC PANEL Routine 10/18/2018 4:00 Results for this AM [employer] procedure are in the results section. POC GLUCOSE Routine 10/17/2018 11:43 Results for this PM [employer] procedure are in the results section. POC GLUCOSE Routine 10/17/2018 8:04 Results for this PM [employer] procedure are in the results section. POC GLUCOSE Routine 10/17/2018 5:08 Results for this PM [employer] procedure are in the results section. POC GLUCOSE Routine 10/17/2018 12:11 Results for this PM [employer] procedure are in the results section. PHOSPHORUS LEVEL Routine 10/17/2018 9:00 Results for this AM [employer] procedure are in the results section. MAGNESIUM LEVEL Routine 10/17/2018 9:00 Results for this AM [employer] procedure are in the results section. ESTIMATED GFR Routine 10/17/2018 9:00 Results for this AM [employer] procedure are in the results section. BASIC METABOLIC PANEL Routine 10/17/2018 9:00 Results for this AM [employer] procedure are in the results section. POC GLUCOSE Routine 10/17/2018 8:32 Results for this AM [employer] procedure are in the results section. POC GLUCOSE Routine 10/17/2018 3:17 Results for this AM [employer] procedure are in the results section. POC GLUCOSE Routine 10/16/2018 11:52 Results for this PM [employer] procedure are in the results section. POC GLUCOSE Routine 10/16/2018 8:14 Results for this PM [employer] procedure are in the results section. POC GLUCOSE Routine 10/16/2018 4:16 Results for this PM [employer] procedure are in the results section. POC GLUCOSE Routine 10/16/2018 11:49 Results for this AM [employer] procedure are in the results section. POC GLUCOSE Routine 10/16/2018 8:09 Results for this AM [employer] procedure are in the results section. POC GLUCOSE Routine 10/16/2018 3:16 Results for this AM [employer] procedure are in the results section. POC GLUCOSE Routine 10/16/2018 12:21 Results for this AM [employer] procedure are in the results section. POC GLUCOSE Routine 10/15/2018 7:59 Results for this PM [employer] procedure are in the results section. POC GLUCOSE Routine 10/15/2018 5:40 Results for this PM [employer] procedure are in the results section. POC GLUCOSE Routine 10/15/2018 2:34 Results for this PM [employer] procedure are in the results section. POC GLUCOSE Routine 10/15/2018 1:12 Results for this PM [employer] procedure are in the results section. POC GLUCOSE Routine 10/15/2018 8:06 Results for this AM [employer] procedure are in the results section. BASIC METABOLIC PANEL Routine 10/15/2018 4:00 Results for this AM [employer] procedure are in the results section. ESTIMATED GFR Routine 10/15/2018 4:00 Results for this AM [employer] procedure are in the results section. MAGNESIUM LEVEL Routine 10/15/2018 4:00 Results for this AM [employer] procedure are in the results section. POC GLUCOSE Routine 10/15/2018 3:00 Results for this AM [employer] procedure are in the results section. POC GLUCOSE Routine 10/15/2018 12:43 Results for this AM [employer] procedure are in the results section. POC GLUCOSE Routine 10/14/2018 7:58 Results for this PM [employer] procedure are in the results section. POC GLUCOSE Routine 10/14/2018 5:02 Results for this PM [employer] procedure are in the results section. POC GLUCOSE Routine 10/14/2018 12:47 Results for this PM [employer] procedure are in the results section. ESTIMATED GFR Routine 10/14/2018 7:45 Results for this AM [employer] procedure are in the results section. BASIC METABOLIC PANEL Routine 10/14/2018 7:45 Results for this AM [employer] procedure are in the results section. POC GLUCOSE Routine 10/14/2018 7:43 Results for this AM [employer] procedure are in the results section. POC GLUCOSE Routine 10/14/2018 5:02 Results for this AM [employer] procedure are in the results section. POC GLUCOSE Routine 10/14/2018 12:20 Results for this AM [employer] procedure are in the results section. POC GLUCOSE Routine 10/13/2018 9:11 Results for this PM [employer] procedure are in the results section. POC GLUCOSE Routine 10/13/2018 4:25 Results for this PM [employer] procedure are in the results section. POC GLUCOSE Routine 10/13/2018 12:20 Results for this PM [employer] procedure are in the results section. POC GLUCOSE Routine 10/13/2018 8:17 Results for this AM [employer] procedure are in the results section. ESTIMATED GFR Routine 10/13/2018 6:19 Results for this AM [employer] procedure are in the results section. BASIC METABOLIC PANEL Routine 10/13/2018 6:19 Results for this AM [employer] procedure are in the results section. POC GLUCOSE Routine 10/13/2018 4:24 Results for this AM [employer] procedure are in the results section. POC GLUCOSE Routine 10/12/2018 11:25 Results for this PM [employer] procedure are in the results section. POC GLUCOSE Routine 10/12/2018 8:09 Results for this PM [employer] procedure are in the results section. POC GLUCOSE Routine 10/12/2018 3:55 Results for this PM [employer] procedure are in the results section. POC GLUCOSE Routine 10/12/2018 11:37 Results for this AM [employer] procedure are in the results section. POC GLUCOSE Routine 10/12/2018 7:19 Results for this AM [employer] procedure are in the results section. POC GLUCOSE Routine 10/12/2018 4:59 Results for this AM [employer] procedure are in the results section. ESTIMATED GFR Routine 10/12/2018 3:58 Results for this AM [employer] procedure are in the results section. PHOSPHORUS LEVEL Routine 10/12/2018 3:58 Results for this AM [employer] procedure are in the results section. MAGNESIUM LEVEL Routine 10/12/2018 3:58 Results for this AM [employer] procedure are in the results section. BASIC METABOLIC PANEL Routine 10/12/2018 3:58 Results for this AM [employer] procedure are in the results section. POC GLUCOSE Routine 10/11/2018 11:17 Results for this PM [employer] procedure are in the results section. POC GLUCOSE Routine 10/11/2018 7:28 Results for this PM [employer] procedure are in the results section. POC GLUCOSE Routine 10/11/2018 3:14 Results for this PM [employer] procedure are in the results section. POC GLUCOSE Routine 10/11/2018 11:39 Results for this AM [employer] procedure are in the results section. ESTIMATED GFR Routine 10/11/2018 8:51 Results for this AM [employer] [employer] procedure are in the results section. PHOSPHORUS LEVEL Routine 10/11/2018 8:51 Results for this AM [employer] [employer] procedure are in the results section. MAGNESIUM LEVEL Routine 10/11/2018 8:51 Results for this AM [employer] [employer] procedure are in the results section. BASIC METABOLIC PANEL Routine 10/11/2018 8:51 Results for this AM [employer] [employer] procedure are in the results section. POC GLUCOSE Routine 10/11/2018 7:28 Results for this AM [employer] procedure are in the results section. POC GLUCOSE Routine 10/11/2018 4:21 Results for this AM [employer] procedure are in the results section. POC GLUCOSE Routine 10/10/2018 11:07 Results for this PM [employer] procedure are in the results section. POC GLUCOSE Routine 10/10/2018 7:41 Results for this PM [employer] procedure are in the results section. POC GLUCOSE Routine 10/10/2018 6:02 Results for this PM [employer] procedure are in the results section. POC GLUCOSE Routine 10/10/2018 1:03 Results for this PM [employer] procedure are in the results section. POC GLUCOSE Routine 10/10/2018 8:13 Results for this AM [employer] procedure are in the results section. POC GLUCOSE Routine 10/10/2018 5:24 Results for this AM [employer] procedure are in the results section. MAGNESIUM LEVEL Routine 10/10/2018 3:45 Results for this AM [employer] [employer] procedure are in the results section. PHOSPHORUS LEVEL Routine 10/10/2018 3:45 Results for this AM [employer] procedure are in the results section. ESTIMATED GFR Routine 10/10/2018 3:45 Results for this AM [employer] procedure are in the results section. BASIC METABOLIC PANEL Routine 10/10/2018 3:45 Results for this AM [employer] [employer] procedure are in the results section. HC COMPLETE BLD COUNT Routine 10/10/2018 3:45 Results for this W/AUTO DIFF AM [employer] procedure are in the results section. POC GLUCOSE Routine 10/09/2018 11:34 Results for this PM [employer] procedure are in the results section. POC GLUCOSE Routine 10/09/2018 7:58 Results for this PM [employer] procedure are in the results section. POC GLUCOSE Routine 10/09/2018 4:25 Results for this PM [employer] procedure are in the results section. POC GLUCOSE Routine 10/09/2018 11:53 Results for this AM [employer] procedure are in the results section. ECG 12-LEAD Routine 10/09/2018 8:17 Results for this AM [employer] procedure are in the results section. HC COMPLETE BLD COUNT Routine 10/09/2018 7:58 Results for this W/AUTO DIFF AM [employer] procedure are in the results section. POC GLUCOSE Routine 10/09/2018 7:40 Results for this AM [employer] procedure are in the results section. POC GLUCOSE Routine 10/09/2018 5:10 Results for this AM [employer] procedure are in the results section. ESTIMATED GFR Routine 10/09/2018 3:46 Results for this AM [employer] procedure are in the results section. BASIC METABOLIC PANEL Routine 10/09/2018 3:46 Results for this AM [employer] procedure are in the results section. MAGNESIUM LEVEL Routine 10/09/2018 3:46 Results for this AM [employer] [employer] procedure are in the results section. PHOSPHORUS LEVEL Routine 10/09/2018 3:46 Results for this AM [employer] procedure are in the results section. POC GLUCOSE Routine 10/08/2018 11:31 Results for this PM [employer] procedure are in the results section. POC GLUCOSE Routine 10/08/2018 8:38 Results for this PM [employer] procedure are in the results section. HC COMPLETE BLD COUNT Routine 10/08/2018 6:00 Results for this W/AUTO DIFF PM [employer] procedure are in the results section. POC GLUCOSE Routine 10/08/2018 4:32 Results for this PM [employer] [employer] procedure are in the results section. POC GLUCOSE Routine 10/08/2018 12:46 Results for this PM [employer] procedure are in the results section. POC GLUCOSE Routine 10/08/2018 9:07 Results for this AM [employer] procedure are in the results section. HC COMPLETE BLD COUNT Routine 10/08/2018 5:10 Results for this W/AUTO DIFF AM [employer] procedure are in the results section. POC GLUCOSE Routine 10/08/2018 4:44 Results for this AM [employer] [employer] procedure are in the results section. ESTIMATED GFR Routine 10/08/2018 4:00 Results for this AM [employer] procedure are in the results section. PHOSPHORUS LEVEL Routine 10/08/2018 4:00 Results for this AM [employer] procedure are in the results section. MAGNESIUM LEVEL Routine 10/08/2018 4:00 Results for this AM [employer] procedure are in the results section. BASIC METABOLIC PANEL Routine 10/08/2018 4:00 Results for this AM [employer] procedure are in the results section. POC GLUCOSE Routine 10/07/2018 11:36 Results for this PM [employer] procedure are in the results section. POC GLUCOSE Routine 10/07/2018 7:38 Results for this PM [employer] procedure are in the results section. POC GLUCOSE Routine 10/07/2018 3:50 Results for this PM [employer] procedure are in the results section. HC CATH DUAL LUMEN PICC Routine 10/07/2018 2:08 Results for this PM [employer] procedure are in the results section. HC US GUIDED VASCULAR Routine 10/07/2018 2:08 Results for this ACCESS PM [employer] [employer] procedure are in the results section. HC CVL PICC INSERT 5 Routine 10/07/2018 2:08 Results for this YRS OR > PM [employer] procedure are in the results section. HEMOGLOBIN & HEMATOCRIT Routine 10/07/2018 1:25 Results for this PM [employer] procedure are in the results section. POC GLUCOSE Routine 10/07/2018 11:03 Results for this AM [employer] procedure are in the results section. POC GLUCOSE Routine 10/07/2018 7:09 Results for this AM [employer] procedure are in the results section. XR CHEST 1 VW PORTABLE Routine 10/07/2018 6:41 Results for this AM [employer] procedure are in the results section. POC GLUCOSE Routine 10/07/2018 4:38 Results for this AM [employer] procedure are in the results section. ESTIMATED GFR Routine 10/07/2018 3:04 Results for this AM [employer] procedure are in the results section. PHOSPHORUS LEVEL Routine 10/07/2018 3:04 Results for this AM [employer] procedure are in the results section. MAGNESIUM LEVEL Routine 10/07/2018 3:04 Results for this AM [employer] procedure are in the results section. LDH Routine 10/07/2018 3:04 Results for this AM [employer] procedure are in the results section. HEPATIC FUNCTION PANEL Routine 10/07/2018 3:04 Results for this AM [facility] procedure are in the results section. BASIC METABOLIC PANEL Routine 10/07/2018 3:04 Results for this AM [facility] procedure are in the results section. PROTHROMBIN TIME WITH Routine 10/07/2018 2:15 Results for this INR AM [facility] procedure are in the results section. HC COMPLETE BLD COUNT Routine 10/07/2018 2:15 Results for this W/AUTO DIFF AM [facility] procedure are in the results section. POC GLUCOSE Routine 10/07/2018 12:45 Results for this AM [facility] procedure are in the results section. POC GLUCOSE Routine 10/06/2018 8:38 Results for this PM [facility] procedure are in the results section. ESTIMATED GFR Routine 10/06/2018 3:37 Results for this PM [facility] procedure are in the results section. IONIZED CALCIUM Routine 10/06/2018 3:37 Results for this PM [facility] procedure are in the results section. PHOSPHORUS LEVEL Routine 10/06/2018 3:37 Results for this PM [facility] procedure are in the results section. MAGNESIUM LEVEL Routine 10/06/2018 3:37 Results for this PM [facility] procedure are in the results section. BASIC METABOLIC PANEL Routine 10/06/2018 3:37 Results for this PM [facility] procedure are in the results section. POC GLUCOSE Routine 10/06/2018 2:38 Results for this PM [facility] procedure are in the results section. XR CHEST 1 VW PORTABLE STAT 10/06/2018 7:30 Results for this AM [facility] procedure are in the results section. IONIZED CALCIUM, STAT 10/06/2018 6:50 Results for this ARTERIAL AM [facility] procedure are in the results section. PROTHROMBIN TIME WITH STAT 10/06/2018 6:50 Results for this INR AM [facility] procedure are in the results section. PARTIAL THROMBOPLASTIN STAT 10/06/2018 6:50 Results for this TIME (PTT) AM [facility] procedure are in the results section. HC COMPLETE BLD COUNT STAT 10/06/2018 6:50 Results for this W/AUTO DIFF AM [facility] procedure are in the results section. ARTERIAL BLOOD GAS STAT 10/06/2018 6:50 Results for this AM [facility] procedure are in the results section. COPPER LEVEL, SERUM Routine 10/06/2018 6:50 Results for this AM [facility] procedure are in the results section. ZINC LEVEL, SERUM Routine 10/06/2018 6:50 Results for this AM [facility] procedure are in the results section. POC GLUCOSE Routine 10/06/2018 6:49 Results for this AM [facility] procedure are in the results section. ESTIMATED GFR STAT 10/06/2018 6:27 Results for this AM [facility] procedure are in the results section. LACTIC ACID LEVEL STAT 10/06/2018 6:27 Results for this AM [facility] procedure are in the results section. PHOSPHORUS LEVEL STAT 10/06/2018 6:27 Results for this AM [facility] procedure are in the results section. MAGNESIUM LEVEL STAT 10/06/2018 6:27 Results for this AM [facility] procedure are in the results section. COMPREHENSIVE METABOLIC STAT 10/06/2018 6:27 Results for this PANEL AM [facility] procedure are in the results section. PREALBUMIN LEVEL Routine 10/06/2018 6:21 Results for this AM [facility] procedure are in the results section. GLUCOSE LEVEL, SYRINGE Routine 10/06/2018 4:53 Results for this AM [facility] procedure are in the results section. HEMOGLOBIN, SYRINGE Routine 10/06/2018 4:53 Results for this AM [facility] procedure are in the results section. POTASSIUM, SYRINGE Routine 10/06/2018 4:53 Results for this AM [facility] procedure are in the results section. SODIUM LEVEL, SYRINGE Routine 10/06/2018 4:53 Results for this AM [facility] procedure are in the results section. IONIZED CALCIUM, Routine 10/06/2018 4:53 Results for this ARTERIAL AM [facility] procedure are in the results section. ARTERIAL BLOOD GAS, Routine 10/06/2018 4:53 Results for this CORRECTED AM [facility] procedure are in the results section. LACTIC ACID, SYRINGE Routine 10/06/2018 2:10 Results for this AM [facility] procedure are in the results section. MAGNESIUM LEVEL Routine 10/06/2018 2:10 Results for this AM [facility] procedure are in the results section. GLUCOSE LEVEL, SYRINGE Routine 10/06/2018 2:10 Results for this AM [facility] procedure are in the results section. HEMOGLOBIN, SYRINGE Routine 10/06/2018 2:10 Results for this AM [facility] procedure are in the results section. IONIZED CALCIUM, Routine 10/06/2018 2:10 Results for this ARTERIAL AM [facility] procedure are in the results section. POTASSIUM, SYRINGE Routine 10/06/2018 2:10 Results for this AM [facility] procedure are in the results section. SODIUM LEVEL, SYRINGE Routine 10/06/2018 2:10 Results for this AM [facility] procedure are in the results section. ARTERIAL BLOOD GAS, Routine 10/06/2018 2:10 Results for this CORRECTED AM [facility] procedure are in the results section. CENTRAL LINE Routine 10/06/2018 1:53 AM [facility] Procedure Note - Yuni Ham MD - 10/06/2018 1:53 AM [facility] Central line Performed by: Giuliano Herrera MD Authorized by: Giuliano Herrera MD Patient Location: OR Staff: Anesthesiologist: Yuni Ham MD Preprocedure:patient identified, IV checked, site and side verified, risks and benefits discussed, procedure verified, surgical consent complete, patient position confirmed, monitors and equipment checked and pre-op evaluation complete MSBT: antiseptic used during central venous catheter insertion, all elements of maximal sterile barrier technique followed, hand hygiene performed prior to central venous catheter insertion, cap/gown used by other personnel during central venous catheter insertion, solutions labeled and all ports not used during insertion clamped Indications: Indications: Vascular access Anesthesia: Anesthesia: General Procedure details: Patient position: Trendelenburg Catheter Type: Double lumen Catheter Site: femoral vein Catheter site laterality: Right Pre-procedure: Landmarks identified Ultrasound guidance used: Yes Ultrasound image saved: No Number of attempts: 2 Successful placement: Yes Guidewire removal: Guidewire removal is confirmed Guidewire removal witnessed by: Natalie Troncoso Post-procedure: Post-procedure: line sutured, sterile dressing applied per protocol and ports flushed with saline Post-procedure: Blood cleaned with CHG and sterile caps on all hubs Assessment: Blood return through all ports and free fluid flow Patient tolerance: Patient tolerated the procedure well with no immediate complications ARTERIAL LINE Routine 10/06/2018 1:29 AM [facility] Procedure Note - Giuliano Herrera MD - 10/06/2018 1:29 AM [facility] Arterial line Performed by: Giuliano Herrera MD Authorized by: Giuliano Herrera MD Start Time: 10/05/2018 11:18 PM End Time: 10/05/2018 11:28 PM Staff: Anesthesiologist: Giuliano Herrera MD Pre-procedure: patient identified, IV checked, site and side verified, risks and benefits discussed, procedure verified, surgical consent complete, patient position confirmed, monitors and equipment checked and pre-op evaluation complete MSBT: antiseptic used, all elements of maximal sterile barrier technique followed, hand hygiene performed, cap/gown used by other personnel and solutions labeled TIme Out Performed: 10/05/2018 11:18 PM Indications: Indications: hemodynamic monitoring Anesthesia: Anesthesia: Local infiltration Procedure Details: Arterial Line placement: Placed pre-induction Line placement site: Radial Line placement side: Right Arterial line gauge: 20 G Number of attempts: 4 Ultrasound guidance used: Yes Post-procedure: Post-procedure: Sterile dressing applied (wrist splintplaced,also.) Post procedure circulation, sensation, movement: Normal Patient tolerance: Patient tolerated the procedure well with no immediate complications ANESTHESIA INTUBATION Routine 10/06/2018 1:11 AM [facility] Procedure Note - Giuliano Herrera MD - 10/06/2018 1:11 AM [facility] ANESTHESIA INTUBATION Date/Time: 10/05/2018 11:43 PM Performed by: Giuliano Herrera MD Authorized by: Giuliano Herrera MD Location: OR Anesthesiologist: Giuliano Herrera MD Preoxygenated with 100% O2: Yes Mask Ventilation: Not attempted Final Airway Type: Endotracheal airway Final Endotracheal Airway: ETT Cuffed: Yes Technique Used: Direct laryngoscopy Devices/Methods Used in Placement: Intubating stylet Insertion Site: Oral Blade Type: Cardona Laryngoscope Blade/Videolaryngoscope Blade Size: 2 ETT Size (mm): 8.0 Cuff at minimum occlusion pressure: Yes Measured from: Teeth ETT to Teeth (cm): 24 Placement Verified by: CO2 detection, direct visualization and equal breath sounds Laryngoscopic view: Grade I - full view of glottis Rapid Sequence Induction (RSI): Yes Number of Attempts at Approach: 1 URINALYSIS SCREEN AND Routine 10/05/2018 10:48 PM Results for this MICROSCOPY, WITH REFLEX [facility] procedure are in TO CULTURE the results section. GRAM STAIN Routine 10/05/2018 10:48 PM Results for this [facility] procedure are in the results section. URINE CULTURE Routine 10/05/2018 10:48 PM Results for this [facility] procedure are in the results section. ANTI XA RIVAROXABAN STAT 10/05/2018 9:04 PM Results for this [facility] procedure are in the results section. ARTERIAL BLOOD GAS STAT 10/05/2018 9:04 PM Results for this [facility] procedure are in the results section. PROTHROMBIN TIME WITH STAT 10/05/2018 9:04 PM Results for this INR [facility] procedure are in the results section. PARTIAL THROMBOPLASTIN STAT 10/05/2018 9:04 PM Results for this TIME (PTT) [facility] procedure are in the results section. XR CHEST 1 VW PORTABLE STAT 10/05/2018 8:49 PM Results for this [facility] [employer] procedure are in the results section. XR ABDOMEN 1 VW STAT 10/05/2018 8:49 PM Results for this PORTABLE [facility] procedure are in the results section. HC COMPLETE BLD COUNT STAT 10/05/2018 8:30 PM Results for this W/AUTO DIFF [facility] procedure are in the results section. ECG 12-LEAD STAT 10/05/2018 8:23 PM Results for this [facility] procedure are in the results section. POC GLUCOSE Routine 10/05/2018 8:14 PM Results for this [facility] [employer] procedure are in the results section. PREPARE RBC STAT 10/05/2018 7:46 PM Results for this [employer] [employer] procedure are in the results section. PREPARE FRESH FROZEN STAT 10/05/2018 7:46 PM Results for this PLASMA [facility] procedure are in the results section. ESTIMATED GFR STAT 10/05/2018 7:46 PM Results for this [facility] [employer] procedure are in the results section. TYPE AND SCREEN STAT 10/05/2018 7:46 PM Results for this [facility] procedure are in the results section. PHOSPHORUS LEVEL STAT 10/05/2018 7:46 PM Results for this [facility] [employer] procedure are in the results section. MAGNESIUM LEVEL STAT 10/05/2018 7:46 PM Results for this [facility] [employer] procedure are in the results section. LACTIC ACID LEVEL STAT 10/05/2018 7:46 PM Results for this [facility] procedure are in the results section. BASIC METABOLIC PANEL STAT 10/05/2018 7:46 PM Results for this [facility] procedure are in the results section. LAPAROTOMY, EXPLORATORY 10/05/2018 7:45 PM small bowel [facility] obstruction, perforated bowel CT ABD/PELVIC EXTERNAL Routine 10/05/2018 12:23 PM Results for this STUDY [facility] [employer] procedure are in the results section. SURGICAL PATHOLOGY Routine 10/05/2018 8:36 AM Results for this REQUEST [facility] procedure are in the results section. after 10/20/2017 Results POC glucose (10/21/2018 7:43 PM [facility])Only the most recent of96 resultswithin the time period is included. POC glucose 133 (H) 65 - 99 mg/dL [facility] Comment: [facility] Notified RN Meter ID: [id number] Disposal Plant Operator: Marilyn Fontanez Performing Organization Address City/[facility] Phone Number [facility] DEPARTMENT OF PATHOLOGY AND [address] [place] [address] Estimated GFR (10/20/2018 12:37 AM [facility])Only the most recent of15 resultswithin the time period is included. Estimated GFR >=90 mL/min/1.73 m2 [facility] Comment: HOSPITAL CatergoryUnitsInterpretation G1 >=90 Normal or high G2 60-89Mildly decreased [id number] to moderately decreased T1c96-81Cxbngmsfxg to severely decreased G4 15-29Severely decreased G5 <15Kidney failure The eGFR was calculated using the Chronic Kidney Disease Epidemiology Collaboration (CKD-EPI) equation. Interpretation is based on recommendations of the National Kidney Foundation-Kidney Disease Outcomes Quality Initiative (NKF-KDOQI) published in 2014. Specimen Plasma specimen Performing Organization Address [facility] Phone Number [facility] DEPARTMENT OF PATHOLOGY AND [address] [place] [phone] Phosphorus level (10/20/2018 12:37 AM [facility])Only the most recent of12 resultswithin the time period is included. Phosphorus 2.7 2.4 - 4.5 mg/dL [facility] Specimen Plasma specimen Performing Organization Address [facility] Phone Number [facility] DEPARTMENT OF PATHOLOGY AND [address] [place] [address] Magnesium level (10/20/2018 12:37 AM [facility])Only the most recent of14 resultswithin the time period is included. Magnesium 1.9 1.6 - 2.6 mg/dL [facility] Specimen Plasma specimen Performing Organization Address [facility] Vegas[facility] Phone Number [facility] DEPARTMENT OF PATHOLOGY AND [address] [place], [place] [id number] Basic metabolic panel (10/20/2018 12:37 AM [facility])Only the most recent of14 resultswithin the time period is included. Sodium 139 135 - 148 mEq/L [facility] Potassium 4.3 3.5 - 5.0 mEq/L [facility] Chloride 101 98 - 112 mEq/L [facility] CO2 28 24 - 31 mEq/L [facility] Anion gap 10@ANIO 7 - 15 mEq/L [facility] BUN 28 (H) 6 - 20 mg/dL [facility] Creatinine 0.76 0.70 - 1.20 mg/dL [facility] Glucose 166 (H) 65 - 99 mg/dL [facility] Calcium 8.4 8.3 - 10.2 mg/dL [facility] Specimen Plasma specimen Performing Organization Address City/[facility] Phone Number [facility] DEPARTMENT OF PATHOLOGY AND [address] [place] [address] GENOMIC MEDICINE [facility] [address] [place] [address] XR Abdomen 2 Vw Ap W Upright And/Or Decubitus (10/18/2018 10:00 AM [facility]) Narrative Performed At EXAMINATION: XR ABDOMEN 2 VW AP W UPRIGHT AND OR DECUBITUS [facility] INDICATION: nausea vomiting COMPARISON: 10/07/2018 IMPRESSION: Moderate diffuse gaseous distention of loops of small and large bowel, compatible with adynamic ileus. There are also a few gas fluid levels in central loops of small bowel. Staple line overlies left upper quadrant. Multiple surgical donavon over the central and right abdomen. Numerous remote left greater than right rib fractures. Spondylosis. Bilateral hip arthroplasties. [facility]-[id number] Procedure Note Hm Interface, Radiology Results Incoming - 10/18/2018 11:32 AM [facility] EXAMINATION: XR ABDOMEN 2 VW AP W UPRIGHT AND OR DECUBITUS INDICATION: nausea vomiting COMPARISON: 10/07/2018 IMPRESSION: Moderate diffuse gaseous distention of loops of small and large bowel, compatible with adynamic ileus. There are also a few gas fluid levels in central loops of small bowel. Staple line overlies left upper quadrant. Multiple surgical donavon over the central and right abdomen. Numerous remote left greater than right rib fractures. Spondylosis. Bilateral hip arthroplasties. [facility]-[id number] Performing Organization Address City/[facility]/Zipcode Phone Number [facility] [address] [place] [address] Triglycerides (10/18/2018 4:00 AM [facility]) Triglycerides 227 (H) <150 mg/dL [facility] Specimen Plasma specimen Performing Organization Address City/[facility]/Zipcode Phone Number [facility] DEPARTMENT OF PATHOLOGY AND [address] [place] [address] [address] CBC with platelet and differential (10/10/2018 3:45 AM [facility])Only the most recent of7 resultswithin the time period is included. WBC 14.09 (H) 4.50 - 11.00 k/uL [facility] RBC 3.18 (L) 4.40 - 6.00 m/uL [facility] HGB 9.9 (L) 14.0 - 18.0 g/dL [facility] HCT 32.9 (L) 41.0 - 51.0 % [facility] MCV 103.5 (H) 82.0 - 100.0 fL [facility] MCH 31.1 27.0 - 34.0 pg [facility] MCHC 30.1 (L) 31.0 - 37.0 g/dL [facility] RDW - SD 51.9 37.0 - 55.0 fL [facility] MPV 9.9 8.8 - 13.2 fL [facility] Platelet count 276 150 - 400 k/uL [facility] Nucleated RBC 0.00 /100 WBC [facility] Neutrophils 76.6 (H) 39.0 - 69.0 % [facility] Lymphocytes 12.6 (L) 25.0 - 45.0 % [facility] Monocytes 9.0 0.0 - 10.0 % [facility] Eosinophils 0.0 0.0 - 5.0 % [facility] Basophils 0.2 0.0 - 1.0 % [facility] Immature granulocytes 1.6 (H)Comment: 0.0 - 1.0 % [facility] "Immature [employer] granulocytes" (promyelocytes, myelocytes, metamyelocytes) Specimen Blood Performing Organization Address City/State/Zipcode Phone Number [facility] DEPARTMENT OF PATHOLOGY AND [address] [place] [address] [address] ECG 12 lead (10/09/2018 8:17 AM [facility])Only the most recent of2 resultswithin the time period is included. Ventricular rate 73 [facility] Atrial rate 73 [facility] CO interval 156 [facility] QRSD interval 96 [facility] QT interval 386 [facility] QTC interval 425 [facility] P axis 1 37 [facility] QRS axis 1 69 [facility] T wave axis 60 [facility] EKG impression Normal sinus rhythm with sinus arrhythmia-Low voltage QRS- Cannot rule out Anteroseptal infarct (cited on or before 31-MAR-2017)-Abnormal ECG-In automated comparison with ECG of 08-OCT-2018 12:35,-Questionable change in initial forces of Anterior [facility] leads-Nonspecific T wave abnormality, worse in Anterior leads- Narrative Performed At Performing Organization Address City/State/Zipcode Phone Number [facility] MUSE [address] [place] [address] Unsuccessful Attempt - PICC (10/07/2018 2:08 PM [facility]) Narrative Performed At Felice Keller RN 10/07/20182:13 PM Unsuccessful Attempt - PICC Date/Time: 10/07/2018 2:08 PM Performed by: Duy Vaughn Authorized by: Yo Khan MD Consent: Consent obtained:Verbal Consent given by:Patient Risks discussed: arterial puncture, incorrect placement, bleeding, infection, superficial thrombus and deep vein thrombus Perry protocol: Procedure explained and questions answered to patient or proxy's satisfaction: yes Relevant documents present and verified: yes Test results available and properly labeled: yes Imaging studies available: yes Required blood products, implants, devices, and special equipment available: yes Site/side marked: yes Immediately prior to procedure, a time out was called: yes Patient identity confirmed:Verbally with patient, arm band, provided demographic data and hospital-assigned identification number Pre-procedure details: Hand hygiene: Hand hygiene performed prior to insertion Sterile barrier technique: All elements of maximal sterile technique followed Skin preparation:2% chlorhexidine Skin preparation agent: Skin preparation agent completely dried prior to procedure Anesthesia (see MAR for exact dosages): Anesthesia method:Local infiltration Local anesthetic:Lidocaine 1% w/o epi Route of administration:Subcutaneous Unsuccessful Attempt(s): Successful placement: No Location(s) Attempted:Left cephalic Number of attempts:1 Problems or complications:Unable to advance PICC Procedure details: Landmarks identified: yes Ultrasound guidance: yes Sterile ultrasound techniques: Sterile gel and sterile probe covers were used Blood Loss Amount:Less than 20 mL Post-procedure details: Post-procedure:Dressing applied Patient tolerance of procedure:Tolerated well, no immediate complications Number of PICC kits used during procedure:1 Comments: Unable to advance the left PICC via cephalic vein to SVC with multiple attempts. Procedure aborted. Insertion site without bleeding and covered with gauze and tegaderm. Patient and spouse stated history of unsuccessful central line insertion due to line unable to pass through the right subclavian vein. Primary nurse was informed. Recommend IR for PICC placement. Hemoglobin & hematocrit (10/07/2018 1:25 PM [facility]) HGB 10.2 (L) 14.0 - 18.0 g/dL [facility] HCT 34.0 (L) 41.0 - 51.0 % [facility] Specimen Blood Performing Organization Address [facility] Phone Number [facility] DEPARTMENT OF PATHOLOGY AND [address] [place] [address] GENOMIC MEDICINE [address] [address] XR Chest 1 Vw Portable (10/07/2018 6:41 AM [facility] [employer])Only the most recent of3 resultswithin the time period is included. Narrative Performed At EXAMINATION:XR CHEST 1 VW PORTABLE [facility] CLINICAL HISTORY:Ventilator Patient COMPARISON:October 06 IMPRESSION: October 06 1. Central line and visualized feeding tube are stable. 2. Pulmonary volumes remain diminished. Pulmonary congestion is unchanged. Overall appearance of the chest is similar. Procedure Note Interface, Radiology Results Incoming - 10/07/2018 7:31 AM [facility] EXAMINATION: XR CHEST 1 VW PORTABLE CLINICAL HISTORY: Ventilator Patient COMPARISON: October 06 IMPRESSION: October 06 1. Central line and visualized feeding tube are stable. 2. Pulmonary volumes remain diminished. Pulmonary congestion is unchanged. Overall appearance of the chest is similar. Performing Organization Address City/[facility] Phone Number [facility] [address] [place] [phone] LDH (10/07/2018 3:04 AM [facility]) LDH 147 87 - 225 U/L [facility] Specimen Plasma specimen Performing Organization Address [facility]/Zipcode Phone Number [facility] DEPARTMENT OF PATHOLOGY AND [address] [place], [place] [address] [place] [phone] Hepatic function panel (10/07/2018 3:04 AM [facility]) Albumin 2.8 (L) 3.5 - 5.0 g/dL [facility] Total bilirubin 0.3 0.0 - 1.2 mg/dL [facility] Bilirubin direct <0.2 0.0 - 0.3 mg/dL [facility] Alkaline phosphatase 75 40 - 129 U/L [facility] Protein 5.6 (L) 6.3 - 8.3 g/dL [facility] Comment: [place] 4.6-7.0 g/dL 1 week 4.4-7.6 g/dL 7 months-1year5.1-7.3 g/dL 1-2 years5.6-7.5 g/dL >3 years6.0-8.0 g/dL 18-150 6.3-8.3 g/dL ALT 12 5 - 50 U/L [facility] AST 12 10 - 50 U/L [facility] Specimen Plasma specimen Performing Organization Address [facility] Phone Number [facility] DEPARTMENT OF PATHOLOGY AND [address] [place] [phone] [place] [address] Prothrombin time with INR (10/07/2018 2:15 AM CUSTOMER ADVOCATE)Only the most recent of3 resultswithin the time period is included. Prothrombin time 15.6 (H) 11.5 - 14.5 sec [facility] INR 1.3 [facility] Comment: HOSPITAL The International Normalized Ratio (INR) is a therapeutic monitoring tool for patients who are stable on oral anticoagulant therapy. An INR of 2.0-3.0 is suggested for deep vein thrombosis/pulmonary embolism. Specimen Blood Performing Organization Address City/[facility]/Zipcode Phone Number [facility] DEPARTMENT OF PATHOLOGY AND [address] [place] [phone] [place] [address] Ionized calcium (10/06/2018 3:37 PM CUSTOMER ADVOCATE) pH 7.37 [facility] Ionized calcium 1.15 1.11 - 1.32 mmol/L [facility] Specimen Plasma specimen Performing Organization Address City/[facility]/Zipcode Phone Number [facility] DEPARTMENT OF PATHOLOGY AND [address] [place] [phone] [place] [address] Ionized calcium, arterial (10/06/2018 6:50 AM CUSTOMER ADVOCATE)Only the most recent of3 resultswithin the time period is included. Ionized calcium, arterial 1.08 (L) 1.11 - 1.32 mmol/L [facility] Specimen Blood Performing Organization Address City/[facility] Phone Number [facility] DEPARTMENT OF PATHOLOGY AND [address] [place] [phone] [place] [address] Copper level, serum (10/06/2018 6:50 AM CUSTOMER ADVOCATE) Copper 89 70 - 140 ug/dL [facility] Comment: INTERPRETIVE INFORMATION: Copper, Serum or Plasma Serum copper may be elevated with infection, inflammation, stress, and copper supplementation. In females, elevated copper may also be caused by oral contraceptives and (concentrations may be elevated up to 3 times normal during the third trimester). Serum copper may be reduced by use of corticosteroids and zinc and by malnutrition or malabsorption. See Compliance Statement B at [email or web address] Performed by [facility], [address] [place] [phone] [email or web address], Solitario Cardona MD - Lab. Director Specimen Blood Performing Organization Address [facility] Phone Number [facility] [address] [place] [address] [facility] [address] [place] [address] Zinc level, serum (10/06/2018 6:50 AM CUSTOMER ADVOCATE) Zinc 25 (L) 60 - 120 ug/dL [facility] Comment: INTERPRETIVE INFORMATION: Zinc, Serum or Plasma Circulating zinc concentrations are dependent on albumin status and are depressed with malnutrition. Zinc may also be lowered with infection, inflammation, stress, oral contraceptives, and . Zinc may be elevated with zinc supplementation or fasting. Elevated zinc concentrations may interfere with copper absorption. Test developed and characteristics determined by [facility]. See Compliance Statement B: [employer]/CS Performed by [facility], [address] [place] [address] [email or web address], Solitario Cardona MD - Lab. Director Specimen Blood Performing Organization Address City/[facility] Phone Number [facility] [address] [place] [address] [facility] [address] [place] [address] Partial thromboplastin time, activated (10/06/2018 6:50 AM CUSTOMER ADVOCATE)Only the most recent of2 resultswithin the time period is included. PTT 31.5 23.0 - 36.0 sec [facility] Comment: PTT therapeutic range for unfractionated heparin is 61.0-112.0 seconds which corresponds to Anti-Xa 0.3-0.7 U/ml. Specimen Blood Performing Organization Address [facility] Phone Number [facility] DEPARTMENT OF PATHOLOGY AND [address] [place] [address] Arterial blood gas (10/06/2018 6:50 AM CUSTOMER ADVOCATE)Only the most recent of2 resultswithin the time period is included. pH, arterial 7.30 (L) 7.35 - 7.45 [facility] pCO2, arterial 43 35 - 45 mmHg [facility] pO2, arterial 174 (H) 80 - 90 mmHg [facility] Bicarbonate, arterial 20.4 (L) 21.0 - 28.0 mmol/L [facility] Base excess, arterial -5 (L) -2 - 2 mEq/L [facility] O2 saturation, arterial 99 95 - 100 % [facility] Specimen Blood Performing Organization Address [facility] Vegascohi Phone Number [facility] DEPARTMENT OF PATHOLOGY AND [address] [place] [address] Lactic acid level (10/06/2018 6:27 AM CUSTOMER ADVOCATE)Only the most recent of2 resultswithin the time period is included. Lactic acid 2.3 (H) 0.5 - 2.2 mmol/L [facility] Specimen Plasma specimen Performing Organization Address City/[facility] Phone Number [facility] DEPARTMENT OF PATHOLOGY AND [address] [place] [address] [address] Comprehensive metabolic panel (10/06/2018 6:27 AM CUSTOMER ADVOCATE) Sodium 141 135 - 148 mEq/L [facility] Potassium 3.3 (L) 3.5 - 5.0 mEq/L [facility] Chloride 105 98 - 112 mEq/L [facility] CO2 21 (L) 24 - 31 mEq/L [facility] Anion gap 15@ANIO 7 - 15 mEq/L [facility] BUN 19 6 - 20 mg/dL [facility] Creatinine 0.78 0.70 - 1.20 mg/dL [facility] Glucose 181 (H) 65 - 99 mg/dL [facility] Calcium 8.2 (L) 8.3 - 10.2 mg/dL [facility] Protein 5.2 (L) 6.3 - 8.3 g/dL [facility] Comment: HOSPITAL [place] 4.6-7.0 g/dL 1 week 4.4-7.6 g/dL 7 months-1year5.1-7.3 g/dL 1-2 years5.6-7.5 g/dL >3 years6.0-8.0 g/dL 18-150 6.3-8.3 g/dL Albumin 3.0 (L) 3.5 - 5.0 g/dL [facility] A/G ratio 1.4 0.7 - 3.8 [facility] Alkaline phosphatase 68 40 - 129 U/L [facility] AST 12 10 - 50 U/L [facility] ALT 9 5 - 50 U/L [facility] Total bilirubin 0.6 0.0 - 1.2 mg/dL [facility] Specimen Plasma specimen Performing Organization Address City/State/Zipcode Phone Number [facility] DEPARTMENT OF PATHOLOGY AND [address] [place] [address] [address] Prealbumin level (10/06/2018 6:21 AM CUSTOMER ADVOCATE) Prealbumin 14 (L) 16 - 32 mg/dL [facility] Specimen Serum Performing Organization Address City/State/Zipcode Phone Number [facility] DEPARTMENT OF PATHOLOGY AND [address] [place] [address] Sodium level, syringe (10/06/2018 4:53 AM CUSTOMER ADVOCATE)Only the most recent of2 resultswithin the time period is included. Sodium, syringe 137 135 - 148 mEq/L [facility] Specimen Blood Performing Organization Address City/[facility] Phone Number [facility] DEPARTMENT OF PATHOLOGY AND [address] [place] [address] Potassium, syringe (10/06/2018 4:53 AM CUSTOMER ADVOCATE)Only the most recent of2 resultswithin the time period is included. Potassium, syringe 3.2 (L) 3.5 - 5.0 mEq/L [facility] Specimen Blood Performing Organization Address [facility] Phone Number [facility] DEPARTMENT OF PATHOLOGY AND [address] [place] [address] Hemoglobin, syringe (10/06/2018 4:53 AM CUSTOMER ADVOCATE)Only the most recent of2 resultswithin the time period is included. Hemoglobin, syringe 11.4 (L) 14.0 - 18.0 g/dL [facility] Specimen Blood Performing Organization Address City/[facility] Phone Number [facility] DEPARTMENT OF PATHOLOGY AND [address] [place] [address] Glucose level, syringe (10/06/2018 4:53 AM CUSTOMER ADVOCATE)Only the most recent of2 resultswithin the time period is included. Glucose, syringe 189 (H) 65 - 99 mg/dL [facility] Specimen Blood Performing Organization Address City/[facility] Phone Number [facility] DEPARTMENT OF PATHOLOGY AND [address] [place] [address] Arterial blood gas, corrected (10/06/2018 4:53 AM CUSTOMER ADVOCATE)Only the most recent of2 resultswithin the time period is included. pH, arterial 7.32 (L) 7.35 - 7.45 [facility] pCO2, arterial 41 35 - 45 mmHg [facility] pO2, arterial 135 (H) 80 - 90 mmHg [facility] Temperature, Celsius 36.1 Degrees C [facility] O2 saturation, arterial 99 95 - 100 % [facility] pH, arterial corrected 7.33 [facility] pCO2, arterial corrected 40 mmHg [facility] pO2, arterial corrected 130 mmHg [facility] Base excess, arterial -5 (L) -2 - 2 mEq/L [facility] Specimen Blood Performing Organization Address City/[facility] Phone Number [facility] DEPARTMENT OF PATHOLOGY AND [address] [place] [phone] [place] [address] [address] Lactic acid, syringe (10/06/2018 2:10 AM CUSTOMER ADVOCATE) Lactic acid, syringe 1.5 0.5 - 2.2 mmol/L [facility] Specimen Blood Performing Organization Address [facility] Phone Number [facility] DEPARTMENT OF PATHOLOGY AND [address] [place] [address] Urinalysis screen and microscopy, with reflex to culture (10/05/2018 10:48 PM CUSTOMER ADVOCATE) Specimen site Random void [facility] Color, UA Yellow [facility] Appearance, UA Hazy [facility] Specific gravity, UA 1.030 1.001 - 1.035 [facility] pH, UA 5.0 5.0 - 8.5 [facility] Protein, UA 1+ (A) Negative [facility] Glucose, UA Negative Negative [facility] Ketones, UA Negative Negative [facility] Bilirubin, UA Negative Negative [facility] Blood, UA Large (A) Negative [facility] Nitrite, UA Negative Negative [facility] Urobilinogen, UA SEE COMMENT <2.0 [facility] Comment: Footnote--------- UNABLE TO REPORT Leukocyte esterase, UA Moderate (A) Negative [facility] WBC, UA 92 (H) 0 - 1 /HPF [facility] RBC, UA 80 (H) 0 - 5 /HPF [facility] Bacteria, UA None seen None seen [facility] Yeast, UA Moderate (A) [facility] Yeast with pseudohyphae, UA Few (A) [facility] Specimen Urine Performing Organization Address City/[facility]/Zipcode Phone Number [facility] DEPARTMENT OF PATHOLOGY AND [address] [place] [address] Gram stain (10/05/2018 10:48 PM CUSTOMER ADVOCATE) Gram stain result Moderate WBC's [facility] Many Yeast Comment: Specimen Information Specimen Source: Urine Specimen Site: Random void Specimen Urine - Random void Performing Organization Address City/[facility] Phone Number [facility] DEPARTMENT OF PATHOLOGY AND [address] [place] [address] Urine culture (10/05/2018 10:48 PM CUSTOMER ADVOCATE) Urine culture isolate Malgorzata albicans [facility] 10-5 cfu/ml [facility] The performance characteristics of this assay on this isolate were validated by the Microbiology Laboratory at [facility].This source has not been approved by the U.S. Food and Drug Administration.The results are not intended to be used as the sole means for clinical diagnosis or patient management.The Microbiology Laboratory is authorized under the clinical Laboratory Improvement Amendments of 1988 (CLIA-88) to perform high complexity testing. (A) Comment: Specimen Information Specimen Source: Urine Specimen Site: Random void Specimen Urine - Random void Performing Organization Address City/[facility] Phone Number [facility] DEPARTMENT OF PATHOLOGY AND [address] [place] [address] Anti Xa Rivaroxaban (10/05/2018 9:04 PM CUSTOMER ADVOCATE) Anti Xa, Rivaroxaban 40 ng/mL [facility] Comment: HOSPITAL This test was developed and its performance characteristics determined by [facility] in a manner consistent with CLIA requirements. This test has not been cleared or approved by the U.S. Food and Drug Administration. Rivaroxaban is approved for use without monitoring, therefore no therapeutic ranges are available for this test. Plasma rivaroxaban levels depend on dose and sample timing. Typical levels seen 2-4 hours after the last dose are 90-190 ng/mL for 10 mg dose and 180-340 ng/mL for 20 mg dose. Specimen Blood Narrative Performed At ___LACID results called to and read back [facility] DEPARTMENT OF PATHOLOGY AND GENOMIC by KALEB GIRON/ESTER(name/location) 10/05/20186___ (date/time) by FUAD__. PER NAVYA FROM PHARMACY ADD ON RIVXA 10/05/201821:33 Performing Organization Address City/State/Zipcode Phone Number [facility] DEPARTMENT OF PATHOLOGY AND [address] [place] [address] GENOMIC MEDICINE [facility] [address] [place] [address] XR Abdomen 1 Vw Portable (10/05/2018 8:49 PM CUSTOMER ADVOCATE) Addenda Addendum by Jaiden Zelaya MD on 10/05/2018 9:16 PM ADDENDUM #1 IMPRESSION: At the upper edge of the film, and enteric tube is seen projecting over the lower esophagus. Advancement is advised. Narrative Performed At EXAMINATION:XR ABDOMEN 1 VW PORTABLE [facility] CLINICAL HISTORY:ng placement COMPARISON:10/14/2017 IMPRESSION: Dilated gas-filled loops of small bowel are seen measuring up to 6.6 cm. As correlated with outside CT dated 10/05/2018, these findings are most concerning for small bowel obstruction. No pathologic calcification over the kidneys or expected course of the ureters. No acute osseous abnormalities. Patient is status post bilateral hip arthroplasty. [facility]-[id number] Procedure Note Hm Interface, Radiology Results Incoming - 10/05/2018 9:05 PM CUSTOMER ADVOCATE EXAMINATION: XR ABDOMEN 1 VW PORTABLE CLINICAL HISTORY: ng placement COMPARISON: 10/14/2017 IMPRESSION: Dilated gas-filled loops of small bowel are seen measuring up to 6.6 cm. As correlated with outside CT dated 10/05/2018, these findings are most concerning for small bowel obstruction. No pathologic calcification over the kidneys or expected course of the ureters. No acute osseous abnormalities. Patient is status post bilateral hip arthroplasty. [facility]-[id number] Performing Organization Address City/[facility]/Zipcode Phone Number [facility] [address] [place] [address] Prepare fresh frozen plasma (10/05/2018 7:46 PM CUSTOMER ADVOCATE) Product name Thawed Plasma [facility] Unit number [id number] [facility] Product code [id number] [facility] Dispense status Returned to BB not [facility] Blood expiration date [id number] [facility] Blood type code 6200 [facility] Blood type A POSITIVE [facility] Product name Thawed Plasma [facility] Unit number [id number] [facility] Product code [id number] [facility] Dispense status Returned to BB not [facility] Blood expiration date [id number] [facility] Blood type code 0600 [facility] Blood type A NEGATIVE [facility] Product [facility] Thawed Plasma [facility] Unit number [id number] [facility] Product code [id number] [facility] Dispense status Returned to BB not [facility] Blood expiration date [id number] [facility] Blood type code 0600 [facility] Blood type A NEGATIVE [facility] Product name Thawed Plasma [facility] Unit number [id number] [facility] Product code [id number] [facility] Dispense status Returned to BB not [facility] Blood expiration date [id number] [facility] Blood type code 0600 [facility] Blood type A NEGATIVE [facility] Performing Organization Address [facility]/Zipcode Phone Number [facility] DEPARTMENT OF PATHOLOGY AND [address] [place] [address] GENOMIC MEDIC[address] [address] Prepare RBC (10/05/2018 7:46 PM CUSTOMER ADVOCATE) Product name Apheresis Red Cell AS3 #2 LR [facility] Unit number [id number] [facility] Product code [id number] [facility] Dispense status Returned to BB not [facility]used [facility]ITAL Blood expiration date [id number] [facility] Blood type code 0600 [facility] Blood type A NEGATIVE [facility] Product name Apheresis Red Cell AS3 #1 LR [facility] Unit number [id number] [facility] Product code [id number] [facility] Dispense status Returned to BB not [facility] Blood expiration date [id number] [facility] Blood type code 0600 [facility] Blood type A NEGATIVE [facility] Product name Apheresis Red Cell AS3 #2 LR [facility] Unit number [id number] [facility] Product code [id number] [facility] Dispense status Returned to BB not [facility] Blood expiration date [facility] Blood type code 0600 [facility] Blood type A NEGATIVE [facility] Product name Apheresis Red Cell AS3 #2 LR [facility] Unit number [id number] [facility] Product code [id number] [facility] Dispense status Returned to BB not [facility] Blood expiration date [facility] Blood type code 0600 [facility] Blood type A NEGATIVE [facility] Performing Organization Address City/State/Zipcode Phone Number [facility] DEPARTMENT OF PATHOLOGY AND [address] [place] [address] GENOMIC MEDICINE [address] [address] Type and screen (10/05/2018 7:46 PM CUSTOMER ADVOCATE) ABO grouping A [facility] Rh type NEG [facility] Antibody screen (gel) NEG [facility] Specimen Blood Performing Organization Address City/State/Zipcode Phone Number [facility] DEPARTMENT OF PATHOLOGY AND [address] [place] [address] GENOMIC MEDIC[address] [address] [address] Abd/Pelvic External Study (10/05/2018 12:23 PM CUSTOMER ADVOCATE) Narrative Performed At This exam was not acquired at a [facility] facility and has not been [facility] interpreted by a [employer] Provider.The exam was imported into our imaging system for comparisons purposes. Performing Organization Address City/State/Zipcode Phone Number [facility] [address] [place] [phone] Surgical pathology request (10/05/2018 8:36 AM CUSTOMER ADVOCATE) [facility] DEPARTMENT OF PATHOLOGY AND GENOMIC MEDICINE Surgical pathology report See link below for PDF [facility] DEPARTMENT OF Lab Report PATHOLOGY AND GENOMIC MEDICINE Result status This is Final Report [facility] DEPARTMENT OF for [id number] PATHOLOGY AND GENOMIC MEDICINE Performing Organization Address City/State/Zipcode Phone Number [facility] DEPARTMENT OF PATHOLOGY AND [address] [place] [address] GENOMIC MEDICINE after 10/20/2017 Insurance Payer Benefit Plan / Group Subscriber ID Type Phone Address MEDICARE MEDICARE PART A AND B xxxxxxxxxx Medicare [facility] xxxxxxxxxxx Commercial Advance Directives Patient has advance care planning documents on file. For more information, please contact:Fidencio Garnett[address] [place] [address]
[2018-10-22] MEDS: PROMETHAZINE 25 MG TABLET PO PRN ×2 (00:15→08:12)
[2018-10-22] MEDS ORDERED: D50W 25 GM/50 ML SYRINGE IV PRN (00:55)
[2018-10-22] MEDS ORDERED: GLUCAGON 1 MG/VIAL IM PRN (00:55)
[2018-10-22] MEDS ORDERED: MELATONIN 3 MG TABLET PO PRN (01:40)
[2018-10-22] MEDS ORDERED: TRAZODONE 50 MG TABLET PO PRN (01:40)
[2018-10-22] MEDS: HYDROCODONE/APAP 10/325 TAB PO PRN ×3 (04:28→19:02)
[2018-10-22] MEDS ORDERED: PROMETHAZINE 12.5 MG/SUPP PR PRN (05:04)
[2018-10-22 05:17] LABS: Urine Appearance CLEAR; Urine Bilirubin NEGATIVE (NEG); Urine Blood NEGATIVE (NEG); Urine Color YELLOW; Urine Glucose NEGATIVE (NEG); Urine Protein NEGATIVE (NEG); Urine Urobilinogen 0.2 mg/dL (0.2-1.0); Urine pH 5.5 (5.0-7.0)
[2018-10-22] MEDS: SOTALOL HCL 80 MG TAB PO SCH ×2 (05:28→17:00)
[2018-10-22 05:38] LABS: Urine Culture Reflex Order NOT NEEDED
[2018-10-22 05:39] LABS: Urine Bacteria <20 /HPF (NONE SEEN); Urine RBC <5 /HPF (NONE SEEN)
[2018-10-22] MEDS: PROMETHAZINE 25 MG/ML VIAL IV PRN ×3 (05:42→22:45)
[2018-10-22] MEDS ORDERED: INSULIN LISPRO 100 UNIT/1 ML SQ SCH (06:00)
[2018-10-22] MEDS ORDERED: SOTALOL HCL 80 MG TAB PO SCH (06:00)
[2018-10-22 06:35] LABS: Absolute Lymphocytes (CBC) 3.4 K/uL (0.7-4.9); Absolute Monocytes 1.7 K/uL (0.1-1.3); Absolute Neutrophil 9.7 K/uL (1.8-8.0); Basophils % 0.6 % (0-1.3); Eosinophils % 0.6 % (0-4.4); Hematocrit 31.6 % (39.6-49.0); Lymphocytes % 22.8 % (15.3-44.8); Monocytes % 11.3 % (3.3-12.3); RBC Red Blood Cell Count 3.33 M/uL (4.33-5.43)
[2018-10-22 06:54] LABS: Albumin 2.6 g/dL (3.4-5.0); BUN Blood Urea Nitrogen 31 mg/dL (7-18); Bicarbonate 29 mmol/L (21-32); Glucose Level 130 mg/dL (74-106); Magnesium 2.2 mg/dL (1.8-2.4); Potassium 4.1 mmol/L (3.5-5.1); Prealbumin 27.6 mg/dL (20-40); Sodium Level 141 mmol/L (136-145)
[2018-10-22] MEDS: PANTOPRAZOLE 40MG TABLET PO SCH (06:56)
[2018-10-22] MEDS: ONDANSETRON 4 MG (ODT) TAB PO PRN ×3 (07:03→17:03)
[2018-10-22] MEDS ORDERED: PROMETHAZINE 25 MG/SUPP PR PRN (07:24)
[2018-10-22] MEDS ORDERED: PNEUMOCOCCAL VACCINE 0.5 ML IMVAC ONE (08:00)
[2018-10-22] MEDS: PROMOD 30 ML DOSE PO SCH ×2 (08:00→19:05)
[2018-10-22] MEDS: DULOXETINE 30 MG CAP PO SCH (08:06)
[2018-10-22] MEDS: DOCUSATE NA/SENNA CONC 1 TAB PO SCH ×2 (08:06→19:05)
[2018-10-22] MEDS: FOLIC ACID 1 MG TABLET PO SCH (08:06)
[2018-10-22] MEDS: MULTIVITAMIN TAB PO SCH (08:07)
[2018-10-22] MEDS: FE SULF/FA/VIT B COMP & C TAB PO SCH (08:07)
[2018-10-22] MEDS: FERROUS SULFATE 325 MG TAB PO SCH (08:07)
[2018-10-22] MEDS: METHYLPREDNISOLONE 40 MG INJ IV SCH (09:00)
--- NOTE | 2018-10-22 10:14 | FAST ---
SHIFT START DATE/TIME: 10/22/2018 07:00 (SNAG GRINDER) SHIFT END DATE/TIME: 10/22/2018 19:00 (SNAG GRINDER) NAME TENA ESTRADA DATE OF : 1960 DATE OF ADMISSION: 10/21/2018 22:32 (SNAG GRINDER) PHONE: AGE: 57 N# [id number] GENDER: Male ENCOUNTER PHYSICIAN: Dr. Jesus Chandler M.D. ADMISSION DIAGNOSIS: - Debility 16 - Debility (16) SMALL BOWEL OBSTRUCTION. EATING: EATING - STEP 1: Does the patient require the assistance of a person or device, or need extra time when eating? Yes. EATING - STEP 2: Does the patient require the assistance of a helper? Yes. EATING - STEP 3: Does the patient perform half or more of the eating tasks? Yes. EATING - STEP 4: Does the patient need only supervision, cuing, coaxing OR help to apply an orthosis OR help to cut fo od, open containers, pour liquids, or butter bread? Yes. EATING - SCORE: 5-SUP GROOMING: Comb/brush hair Oral care Patient applied make-up GROOMING - STEP 1: Does the patient require the assistance of a person or device, or need extra time when grooming? Yes. GROOMING - STEP 2: Does the patient require the assistance of a helper? Yes. GROOMING - STEP 3: How much assistance does the patient require from the helper? Cuing, coaxing, instructions, or encour agement for completion of grooming GROOMING - SCORE: 5-SUP BATHING: Activity did not occur on this shift BATHING - SCORE: 0-UNK DRESSING - UPPER BODY: Activity did not occur on this shift ARTICLES SCORE Total number of steps: 0 DRESSING - UPPER BODY - SCORE: 0-UNK DRESSING - LOWER BODY: Activity did not occur on this shift ARTICLES SCORE Total number of steps: 0 DRESSING - LOWER BODY - SCORE: 0-UNK TOILETING: TOILETING - STEP 1: Does the patient require the assistance of a person or device, or need extra time with toileting? Yes . TOILETING - STEP 2: Does the patient require the assistance of a helper? Yes. TOILETING - STEP 3: How much assistance does the patient require from the helper? Hands-on assistance from the helper TOILETING - STEP 4: Of the 3 tasks: 1) Adjusting clothing prior to use, 2) Cleansing of perineal area, 3) Adjusting clot heber after use; How many tasks does the patient perform WITHOUT assistance of the helper? Three tasks with steadying assistance from the helper TOILETING - SCORE: 4-MIN BLADDER MANAGEMENT: BLADDER MANAGEMENT - STEP 1: Does the patient control the bladder completely and intentionally without equipment or devices or med ications, and is always continent? No. BLADDER MANAGEMENT - STEP 2: Does the patient require the assistance of a helper? No, patient requires and independently uses an a ssistive device, such as a urinal, bedpan, bedside commode, catheter, absorbent pad, or collecting de vice BLADDER MANAGEMENT - SCORE: 6-BRI BOWEL MANAGEMENT: Activity did not occur on this shift BOWEL MANAGEMENT - SCORE: 7-IND TRANSFERS: BED, CHAIR, WHEELCHAIR: TRANSFERS: BED, CHAIR, WHEELCHAIR - STEP 1: Does the patient require assitance of a person or device, or need extra time with bed, chair, or whee lchair transfers? Yes. TRANSFERS: BED, CHAIR, WHEELCHAIR - STEP 2: Does the patient require the assistance of a helper? Yes. TRANSFERS: BED, CHAIR, WHEELCHAIR - STEP 3: How much assistance does the patient require from the helper? Steadying/guiding assistance TRANSFERS: BED, CHAIR, WHEELCHAIR - SCORE: 4-MIN TRANSFERS: TOILET: TRANSFERS: TOILET - STEP 1: Does the patient require the assistance of a person or device, or need extra time with toilet transfe rs? Yes. TRANSFERS: TOILET - STEP 2: Does the patient require the assistance of a helper? Yes. TRANSFERS: TOILET - STEP 3: How much assistance does the patient require from the helper? Patient performs half or more of the tr ansferring tasks TRANSFERS: TOILET - STEP 4: Does the patient need only incidental help such as contact guard or steadying during toilet transfer? Yes. TRANSFERS: TOILET - SCORE: 4-MIN TRANSFERS: SHOWER: Activity did not occur on this shift TRANSFERS: SHOWER - SCORE: 0-UNK TRANSFERS: TUB: Activity did not occur on this shift TRANSFERS: TUB - SCORE: 0-UNK LOCOMOTION: WALK: Activity did not occur on this shift LOCOMOTION: WALK - SCORE: 0-UNK LOCOMOTION: WHEELCHAIR: Activity did not occur on this shift LOCOMOTION: WHEELCHAIR - SCORE: 0-UNK COMPREHENSION: COMPREHENSION: TYPE: Both COMPREHENSION - STEP 1: Does the patient require help from a person or device, or need extra time to understand complex and a bstract ideas (such as current events, finances, discharge planning, medical issues, relationships, e tc)? No. COMPREHENSION - STEP 2: Does the patient need extra time, require an assistive device (such as glasses for visual comprehensi on or a hearing aid for auditory comprehension) or does s/he have mild difficulty understanding compl ex and abstract information? Yes. COMPREHENSION - SCORE: 6-BRI EXPRESSION EXPRESSION: TYPE: Both EXPRESSION - STEP 1: Does the patient require help from a person or device, or need extra time expressing complex and abst ract ideas (such as current events, finances, discharge planning, medical issues, relationships, etc) ? No. EXPRESSION - STEP 2: Does the patient need extra time, require an assistive device (such as augmentive communication syste m or a communication board), OR does s/he have mild difficulty expressing complex and abstract ideas (including mild dysarthria or mild word-find problems)? Yes. EXPRESSION - SCORE: 6-BRI SOCIAL INTERACTION: SOCIAL INTERACTION - STEP 1: Does the patient require a helper to interact with others in social and therapeutic situations? No. SOCIAL INTERACTION - STEP 2: Does the patient need extra time in social situations, OR does s/he interact with staff, other patien ts, and family members ONLY in structured environments, OR does s/he require medication for social in teraction? Yes, patient needs extra time SOCIAL INTERACTION - SCORE: 6-BRI PROBLEM SOLVING: PROBLEM SOLVING - STEP 1: Does the patient need help from a person or device, or need extra time to solve complex problems such as managing a checking account or confronting interpersonal problems? No. PROBLEM SOLVING - STEP 2: Does the patient require extra time to make decisions or solve problems, OR does s/he have slight dif ficulty reading, initiating, or self-correcting in unfamiliar situations? Yes, patient needs extra ti me. PROBLEM SOLVING - SCORE: 6-BRI MEMORY: MEMORY - STEP 1: Does the patient need help from a person or device, or need extra time to remember frequently encount ered people, daily routines, and executing requests? No. MEMORY - STEP 2: Does the patient have slight difficulty recognizing frequently encountered people, daily routines, or executing requests without the need for repetition or using self-initiated or environmental cues to remember? Yes. MEMORY - SCORE: 6-BRI SIGNATURE PANEL: The following modified sections: Eating - Score, Grooming - Score, Bathing - Score, Dressing - Upper Body - Score, Dressing - Lower Body - Score, Toileting - Score, Bladder Management - Score, Bowel Man agement - Score, Transfers: Bed, Chair, Wheelchair - Score, Transfers: Toilet - Score, Transfers: Ivon wer - Score, Transfers: Tub - Score, Locomotion: Walk - Score, Locomotion: Wheelchair - Score, Compre hension - Score, Expression - Score, Social Interaction - Score, Problem Solving - Score, Memory - Sc ore were [electronically] signed by Karan Jung on Sat Oct 22 2018 10:13:20 GMT-0600 (Central Standard Time)
--- NOTE | 2018-10-22 10:52 | RAD REPORT ---
EXAM DESCRIPTION: RAD - Abdomen W Erect - 10/22/2018 10:41 am CLINICAL HISTORY: ileus Pain COMPARISON: Abdomen W Erect dated 10/12/2017 FINDINGS: Pneumoperitoneum is suspected likely related to recent surgical status. A large number of surgical clips project over the abdomen with skin donavon noted along the anterior midline. No evidence of bowel obstruction. Previously noted ileus pattern has mildly improved.
--- NOTE | 2018-10-22 10:54 | RAD REPORT ---
EXAM DESCRIPTION: RAD - Chest Pa And Lat (2 Views) - 10/22/2018 10:44 am CLINICAL HISTORY: leukocytosis Chest pain. COMPARISON: Chest Single View dated 07/30/2018; Chest Single View dated 06/22/2018; Chest Single View da mega 12/27/2017; Abdomen 1 View (KUB) dated 10/14/2017 FINDINGS: Linear opacities are present in the posterior left base likely representing subsegmental a telectasis. The heart is upper limit normal size. Right-sided venous catheter tip in the SVC. Mild bi lateral extrapleural fat seen.
[2018-10-22] MEDS: POLYETHYL GLY 3350 17 GM/DOSE PO SCH ×2 (11:00→11:45)
[2018-10-22] MEDS: RIVAROXABAN 20 MG TABLET PO SCH (16:44)
[2018-10-22] MEDS ORDERED: AA 5%/D20W/ELECTROLYTES-TPN 2,000 ML, Lipids 20% 250 ML with MULTIVITAMINS INJ 10 ML IV SCH ×3 (17:00)
[2018-10-22] MEDS: INSULIN -REGULAR HUMAN 50 UNIT/0.5 ML ML SQ SCH (18:07)
--- NOTE | 2018-10-22 22:13 | PAPE ---
PATIENT: [id number] [id number] REFERR[facility] DO[facility] eva Lyn EVALUATION DATE AND TIME 10/22/2018 22:12 (MILLER ROD MILL) NAME TENA ESTRADA DATE OF 1960 AGE 57 PHONE SSN# [id number] GENDER male EVALUATING PHYSICIAN Dr. Jesus Chandler M.D. ADMISSION DIAGNOSIS: SMALL BOWEL OBSTRUCTION ONSET DATE 10/05/2018 SECONDARY/COMORBID DIAGNOSES TIERED: - N/A MORBID OBESITY URETHRAL STRICTURE ACUTE CYSTITIS OBSTRUCTIVE SLEEP APNEA GERD ATRIAL FIBRILLATION ESSENTIAL HYPERTENSION PULMONARY EMBOLISM DEEP VEIN THROMBOSIS RHEUMATOID ARTHRITIS BOWEL PERFORATION TESTICULAR CANCER POST-ADMISSION FUNCTIONAL/MEDICAL STATUS: - Bladder Same accident frequency: Ind - No accidents in the past 7 days - Bowel Same accident frequency: Ind - No accidents in the past 7 days - Walking Same score based on distance walked: 3(>=150ft) - Wheelchair Same score based on distance traveled: 0(N/A) STATUS CHANGE EVALUATION: No change in Functional or Medical Status is identified compared with Pre-Admission screening. PATIENT NEEDS CLOSE MEDICAL SUPERVISION BY A REHABILITATION PHYSICIAN FOR: Bowel and Bladder Management Coordination of Treatment Team Medical and Co-Morbidity Management Wound Care Pain Management DVT Management PATIENT REQUIRES 24X7 REHAB NURSING FOR MEDICAL AND FUNCTIONAL MGT. OF THE FOLLOWING DEFICITS: ADL's Ambulation Bowel and Bladder Management Communication Disease Management Medication Management Patient/Family Education Providing Safe Environment Skin Integrity Transfers Pain Management PATIENT REQUIRES INTENSIVE, COORDINATED INTERDISCIPLINARY APPROACH TO REHAB: Arranging Home Equipment/Services Discharge Planning Family Intervention/Training Public Records Researcher/Case Management LIST OF IDENTIFIED AND POTENTIAL PROBLEMS: Alteration in leisure activities Bladder, Incontinence Blood Pressure, Hypertension/hypotension Issues Bowel, Incontinence Infection, Actual or Potential Mobility Impaired Pain, Alteration in Comfort Self Care Deficit Skin Integrity, Actual or Potential Urinary Tract Infection (UTI), Actual or Potential RISK FOR COMPLICATIONS - Morbid Obesity Falls. Fatigue. Skin integrity. - GERD Alteration in sleep. Aspiration. Dehydration. Malnutrition. Pain. - Atrial Fibrillation CVA. Heart failure. Limb embolus. - Rheumatoid Arthritis Joint deformity. Ligament damage. INTERVENTIONS - Morbid Obesity - GERD Altered diet. Elevation of head of bed. Medications. Nausea/vomiting. Nighttime food/fluid restrictio ns. Nutrition. - Atrial Fibrillation Anticoagulation. Medications. VS. - Rheumatoid Arthritis Energy conservation. Exercise. Joint Protection. Medications. PATIENT COULD BE AT RISK FOR COMPLICATIONS FROM ADVERSE MEDICAL CONDITIONS DUE TO HIS/HER COMORBIDITI ES AND THE RIGORS OF THE INTENSIVE REHABILLITATION PROGRAM. METHODS OR INTERVENTIONS TO AVOID COMPLIC ATIONS INCLUDE: - Deep Vein Thrombosis (DVT) Prophylaxis therapy for prevention . Sequential Compression Device (SCD). TE D Hose. - Bleeding Assess lab values and manage abnormalities. Nursing to teach precautions for anti-coagulation therapy . Wound to be assessed every shift. - Infection Clinical staff to assess and manage the signs and symptoms of infection including fever, redness, war mth, etc. - Urinary Tract Infection - Falls Patient will be evaluated for Fall Precautions and will be placed on Fall Precautions as indicated pe r protocol. - Skin Breakdown Nursing will assess skin daily using assessment tool and will place on Skin Breakdown Precautions as indicated per protocol. - Pain Clinical staff may employ non-medication methods such as massage, distraction, decrease stimulus, etc . as needed. Clinical staff will assess patient's pain level every shift per protocol to assess and e nsure pain management effectiveness. Medications will be given and the pain level re-assessed. PRELIMINARY PLAN OF CARE: - Physical Therapy Patient needs Physical Therapy for a daily minimum of 1.5 hours at least 5 out of 7 days, to improve: Mobility, Strengthening, Transfers, Stretching, ROM, Endurance, Ability to manage stairs, Gait, and Balance. - Speech Therapy Patient needs Speech Therapy for a daily minimum of 0.5 hours at least 5 out of 7 days, to improve: S wallowing, Cognition, Language Skills, and Compensatory Strategies. - Rehabilitation Nursing Patient requires 24x7 Rehabilitation Nursing for: Pain Issues, Identifying and preventing risk factor s, Monitoring and reporting current medical conditions, Assisting with ambulation and transfer, Nichole ting with all ADL-s, Teaching patients about disease process and medications, Family teaching, Provid ing safe environment, Bowel and Bladder Issues, Skin Integrity, and Medication Management. Patient needs Public Records Researcher and/or Case Management for: Discharge Planning, Arranging Home Equipmen t or Services, and Family Interventions. - Dietary and Nutrition Services Patient needs Dietary and Nutrition Services for: Adequate Nutrition, Nutritional Supplements, and Nu tritional Education. - Occupational Therapy Patient needs Occupational Therapy for a daily minimum of 1.5 hours at least 5 out of 7 days, to impr ove Activities of Daily Living, including: Eating, Grooming, Bathing, Dressing, Toileting, Toilet Tra nsfers, Community Reintegration, Higher functional activities, Adaptive Equipment, Splinting, Househo ld Tasks, and Other activities as determined. POTENTIAL FUNCTIONAL GOALS FOR PATIENT TO ACHIEVE BY DISCHARGE: - Safety Precaution Patient will remain free from falls or injury at time of discharge. - Bed Mobility Patient will perform bed mobility at 4-Lila level of assistance. - Transfers Patient will complete transfers from bed to chair at 4-Lila level of assistance. - Mobility Patient will ambulate 150 ft with 4-Lila level of assistance with RW. PATIENT REHAB POTENTIAL Expected level of measurable improvement will be of a practical value to patient's functional capacit y or adaptations to impairments Has a viable Discharge Plan Medically appropriate; condition is sufficiently stable to participate in intensive rehab program Patient is able and expected to receive 3 hours of individualized therapy daily on at least 5 of ever y 7 days Patient's prognosis for significant practical improvement within a reasonable period of time appears Good DISCHARGE PLAN: - Estimated Length of Stay (days) 13. - Consensus on plan Discharge plan has been discussed with primary caregiver. Patient/Family is in agreement with the kalen n. Primary caregiver is in agreement with the plan. - Patient/Family Goals Return home with assistance. - Planned Living Setting Upon Discharge Home, to live with Family/Relatives. CONCLUSION ON REHABILITATION NECESSITY: I have evaluated patient's pre-admission functional status and, comparing it to the patient's post-ad mission functional status now, I conclude that the pre-admission assessment was accurate. Patient's c ondition on admission supports the medical necessity of admission to IRF. It is safe to proceed with patient's therapy program. SIGNATURE PANEL: (MILLER ROD MILL)
--- NOTE | 2018-10-22 22:13 | R.HP ---
FACILITY: [facility] ENCOUNTER DATE AND TIME: 10/22/2018 22:08 (CANS VACUUM TESTER) MR#: [id number] NAME HUSAM VELA ADDRESS: [address] [place] [address] [address] CITY: [place] ZIP [id number] PHONE: DATE OF : 1960 AGE: 57 SSN# [id number] GENDER: Male DEXTERITY Right-handed MARITAL STATUS RACE White PRE-HOSPITAL LIVING SETTING 01 - Home (private home/apt. board/care, assisted living, snf, transitional living) PRE-HOSPITAL LIVING WITH Family/Relatives ENCOUNTER PHYSICIAN: Dr. Jesus Chandler M.D. REFERRING DOCTOR: eva Lyn DATE OF ADMISSION: 10/21/2018 22:32 (CANS VACUUM TESTER) REFERRING FACILITY [facility] HOME TYPE AND DETAILS: Type of home: single family house # of levels in the residence: 1 # of steps within the residence: 0 # of steps to enter the residence: 0 ADMISSION DIAGNOSIS: SMALL BOWEL OBSTRUCTION ONSET DATE: 10/05/2018 PRIMARY DIAGNOSIS-RELATED SURGERIES: Exlap with small bowel resection SECONDARY/COMORBID DIAGNOSES (TIERED): - N/A MORBID OBESITY URETHRAL STRICTURE ACUTE CYSTITIS OBSTRUCTIVE SLEEP APNEA GERD ATRIAL FIBRILLATION ESSENTIAL HYPERTENSION PULMONARY EMBOLISM DEEP VEIN THROMBOSIS RHEUMATOID ARTHRITIS BOWEL PERFORATION TESTICULAR CANCER HISTORY OF PRESENT ILLNESS (HPI): Pt. is a 57 yo Right-handed white male. On 10/05/2018 he was admitted to [facility] with diagnosis SMALL BOWEL OBSTRUCTION. His impairment category is Debility 16 - Debility (16). Pre-morbidly, Pt. was independent/mod-I in Communication, Social Cognition, Self-Care, Locomotion, Sp hincter Control, and Transfers Control; and he had good Sphincter Control. Currently, he has deficits of Balance, Self-Care, Locomotion, Endurance, Safety Awareness, and Transf ers Control. Pt. is now referred to [facility] for acute in-patient rehabilitation in order to maximize patient's functional independence in activities of daily living, strength, ROM, and mobi lity. Patient has realistic goal of being discharged at assistance level 6-Erasmo to reside at Home with Fam james/Relatives. Mr. Husam Vela is a 57 year old male that lives in a [address] house. He goes to [employer] several ti mes a week. On 10/05/2018, he had an abdominal pain with nausea and vomiting and was seen to have small bowel obstruction and was admitted to [facility] and treated. He is now medically stable but in need of 24-hour nursing, doctor supervision and oversite while receiving active and The patient is reasonably expected to participate in 3hours of therapy a day/15 hours per week and receive care with an intensive interdisciplinary approach. MEDICATION ALLERGIES: Demerol REMICADE ENVIRONMENTAL ALLERGIES: None Known - Substance Allergies None Known - Other Allergies LATEX PAST MEDICAL HISTORY: ACUTE CYSTITIS ATRIAL FIBRILLATION BOWEL PERFORATION DEEP VEIN THROMBOSIS ESSENTIAL HYPERTENSION GERD MORBID OBESITY OBSTRUCTIVE SLEEP APNEA PULMONARY EMBOLISM RHEUMATOID ARTHRITIS TESTICULAR CANCER URETHRAL STRICTURE PAST SURGICAL HISTORY: ABDOMINAL SURGERY CARDIAC ELECTROPHYSIOLOGY MAPPING AND ABLATION FRACTURE SURGERY GASTRECTOMY, SLEEVE LAPAROSCOPIC INCISION AND DRAINAGE HIP KNEE SURGERY ORCHIECTOMY, RADICAL ABDOMINAL APPROACH REPLACEMENT TOTAL KNEE TOTAL HIP ARTHROPLASTY BILATERAL TUNNELED VENOUS CATHETER PLACEMENT VENTRAL HERNIA REPAIR WRIST SURGERY FAMILY HISTORY: Family history is not contributory. SOCIAL HISTORY: - Home Living Family/Relatives REVIEW OF SYSTEMS: - Gen No Chills Fatigue No Fever - Eyes No Double Vision No itchiness - ENMT Difficulty Swallowing - CVS No Chest Discomfort No Chest Pain Fatigue No Weight Gain - Resp No Cough No Shortness of Breath - GI Continent Abdominal Pain No Constipation No Diarrhea - Continent No Kidney Pain No Painful Urination No Urinary Urgency - MSK Joint Pain Muscle Cramps No Stiffness - Skin No Itching No Rash No Suspicious Lesions - Neuro Coordination Difficulty No Difficulty with Concentration No Memory Loss No Seizures Weakness - Psych No Anxiety No Depression No HIV Exposure No Persistent Infections No Seasonal Allergies - Endo No Cold/Heat Intolerance No Excessive Hunger No Excessive Thirst No Excessive Urination PHYSICAL EXAM - Gen Alert and awake Lying in bed No apparent distress Oriented to: person, time, and place - Skin Healing surgical wound in the abdomen. - Eyes No abnormalities - ENMT No abnormalities - Neck No abnormalities - CVS RRR - Chest Incision is healing with good hemostasis. - Resp No wheezing - Abd +bowel sounds - GI Obese Deferred - No abnormalities - Ext Mild bilateral lower extremity edema. - MSK 4+/5 weakness in both lower extremities. - Neuro 4/5 strength bilaterally upper and lower extremities. - Psych No abnormalities VITAL SIGNS Temperature: 97.4 F SBP/DBP: 109/59 Pulse: 66 Resp: 18 NURSING: - Shower allowing shower ACTIVITIES OOB only with supervision FUNCTIONAL STATUS: - Self-Care A. Eating Ind sup B. Grooming Ind sup C. Bathing Ind sup D. Dressing - Upper Ind sup E. Dressing - Lower Ind sup F. Toileting Ind Dep - Sphincter Control G: Bladder control Ind Dep H: Bowel control Ind Ind - Transfers Control I. Bed/Chair/Wheelchair Ind sup J. Toilet Ind Lila K. Tub/Shower Ind Ind - Locomotion L. Walk/Wheelchair (C) Ind Lila L. Walk/Wheelchair (W) Ind Lila M. Stairs Ind ADNO - Communication N. Comprehension (B) Ind Ind O. Expression (B) Ind Ind - Social Cognition P. Social Interaction Ind Ind Q. Problem Solving Ind Ind R. Memory Ind Ind - Endurance Fair - Balance Fair - Safety Awareness Fair CURRENT FUNC. DEFICITS: Balance, Self-Care, Locomotion, Endurance, Safety Awareness, and Transfers Control ASSESSMENT: Pt. is a 57 yo Right-handed white male.On 10/05/2018 he was admitted to [facility] with diagno sis SMALL BOWEL OBSTRUCTION.His impairment category is Debility 16 - Debility (16).Pre-morbidly, Pt. was independent/mod-I in Communication, Social Cognition, Self-Care, Locomotion, Sphincter Control, and Transfers Control; and he had good Sphincter Control.Currently, he has deficits of Balance, Self- Care, Locomotion, Endurance, Safety Awareness, and Transfers Control.Pt. is now referred to [facility] for acute in-patient rehabilitation in order to maximize patient's functiona l independence in activities of daily living, strength, ROM, and mobility.- Rehab Goal Patient has realistic goal of being discharged at assistance level 6-Erasmo to reside at Home with Fam james/Relatives. Mr. Husam Vela is a 57 year old male that lives in a [address] house. He goes to grocery stores several ti mes a week. On 10/05/2018, he had an abdominal pain with nausea and vomiting and was seen to have small bowel obstruction and was admitted to [facility] and treated. He is now medically stable but in need of 24-hour nursing, doctor supervision and oversite while receiving active and The patient is reasonably expected to participate in 3hours of therapy a day/15 hours per week and receive care with an intensive interdisciplinary approach.REHAB PLAN: - Physical Therapy Gait dysfunction - to improve, our physical therapists will perform initial evaluation of pt's status upon admission and devise an individualized program for Gait Training, and Wheel Chair mobility Inability to transfer - to improve, our physical therapists will perform initial evaluation of pt's s tatus upon admission and devise an individualized program for Bed mobility Need for home safety evaluation - to improve, our physical therapists will perform initial evaluation of pt's status upon admission and devise an individualized program for Home Evaluation Need in caregiver upon discharge - to improve, our physical therapists will perform initial evaluatio n of pt's status upon admission and devise an individualized program for Caregiver Training New precaution - to improve, our physical therapists will perform initial evaluation of pt's status u faisal admission and devise an individualized program for Patient precaution education Edema - to improve, our physical therapists will perform initial evaluation of pt's status upon admi ssion and devise an individualized program for Elevation Training, and Lymphedema Therapy Having wound - to improve, our physical therapists will perform initial evaluation of pt's status up on admission and devise an individualized program for Wound Care Poor balance - to improve, our physical therapists will perform initial evaluation of pt's status upo n admission and devise an individualized program for Balance Training Poor endurance - to improve, our physical therapists will perform initial evaluation of pt's status u faisal admission and devise an individualized program for Endurance Training Weakness - to improve, our physical therapists will perform initial evaluation of pt's status upon ad mission and devise an individualized program for Aquatic Therapy, Neuromuscular Reeducation, and Stre ngthening Achieving independence - to improve, our physical therapists will perform initial evaluation of pt's status upon admission and devise an individualized program for Community Reintegration Activities - Occupational Therapy ADL deficits - to improve, our occupation therapists will perform initial evaluation of pt's status u faisal admission and devise an individualized program for Bathing, Bed mobility, Community Reintegration , Cooking, Dressing, Eating, Fine Motor Skills, Grooming, Homemaking, Kitchen Mobility, Laundry, Mary ent Education, Safety Awareness, Splinting - Positioning, Transfers(Toilet, Tub, Shower), and Wheel C hair Management Need for group care worker - to improve, our occupation therapists will perform initial evaluation of pt's s tatus upon admission and devise an individualized program for Caregiver Training Weakness - to improve, our occupation therapists will perform initial evaluation of pt's status upon admission and devise an individualized program for Aquatic Therapy, Balance, Endurance, UE ROM, and U E strengthening MEDICAL PLAN: - Diet Type Start BARIATRIC FULLS - Diet - Liquid Texture Start Regular - Tube Feed Start N/A - Diet - Solid Texture Regular - Shower shower DISCHARGE PLAN: - Estimated Length of Stay (days) 13. - Consensus on plan Discharge plan has been discussed with primary caregiver. Patient/Family is in agreement with the kalen n. Primary caregiver is in agreement with the plan. - Patient/Family Goals Return home with assistance. - Planned Living Setting Upon Discharge Home, to live with Family/Relatives. SIGNATURE PANEL: (CANS VACUUM TESTER)
--- NOTE | 2018-10-22 22:28 | HP ---
Date of Admission: 10/22/2018 Chief Complaint: Weakness. History Of Present Illness: This is a 57-year-old pleasant male patient, who came into emergency room on October 05, 2018 with abdominal pain. Further evaluation in our hospital emergency room revealed presence of small bowel obstruction with perforation and when I was contacted from our ER, it was recommended for patient to be transferred to [facility] as the patient's local surgeon, Dr. Joya has informed us that he will be able to do his surgery here because of his very complicated case. So with that in mind, the patient was transferred to [place]. After the patient went there, he had surgery done with Dr. Lyn and Dr. Khan and during surgery, they actually did not find any perforation, but the patient did have small bowel obstruction and he required lysis of adhesions with segmental resection of small bowel with end-to- end anastomosis and had wound VAC, which subsequently was removed. Patient developed postoperative ileus as of Wednesday of this week and as I understand by talking with patient's and last bowel movement was almost a week ago. He has lot of nausea. It is expected to improve and TPN to be continued until he gets adequate amount of nutrition with his oral intake. Patient tends to do well with a liquid and soft diet and tolerates that much better than regular diet due to nausea problem. He says that he really does not have abdominal pain , nausea seems to be the biggest problem right now. His abdominal pain is well controlled with current pain medication. Nausea is also controlled with current medication, but he does require that frequent use of nausea medication. He has significant generalized weakness with 2 week stay in the hospital, so he was brought into our rehab floor for physical therapy and he was admitted last night to rehab floor. I saw him this morning. Medications: List reviewed. Review of Systems: GI: As mentioned above. Constitutional: As mentioned above. All other systems reviewed and negative. Allergies: TO DEMEROL, REMICADE, AND LATEX. Social History: Negative for smoking and alcohol use. Family History: Not pertinent. Past Surgical History: Significant for recent surgery on October 06, 2018 in form of lysis of adhesions with segmental resection of small bowel and this was due to small bowel obstruction without perforation. In the past, he had surgery for abdominal wall abscess, surgery for ventral hernia, knee surgery, Port-A-Cath placed. Past Medical History: Significant for paroxysmal atrial fibrillation, sleep apnea, hypertension, Crohn disease, chronic steroid therapy, rheumatoid arthritis, ventral hernia, morbid obesity, urethral stricture with recurrent urinary tract infections. Physical Examination: Vital Signs: Last temperature this morning 96.2, pulse 78, respiratory rate 18 , blood pressure 100/61, oxygen saturation 96%. Height 6 feet 2 inches, weight 411 pounds. General: Awake, alert, oriented, not in distress. HEENT: Head atraumatic, normocephalic. Conjunctivae nonerythematous. Sclerae white. Mouth, no thrush or edema noted. Ears/Nose, no mass, lesion, discharge noted. Neck: Supple. No JVD, lymph nodes, bruit, thyromegaly noted. Lungs: Bilateral good equal air entry. Clear to auscultation. No rhonchi. No rales. Heart: Normal heart sounds, no murmur or gallop. Abdomen: Has multiple ventral hernia and large midline abdominal wall surgical incision with donavon present. No evidence of any redness, swelling, discharge , bleeding, and this area is healing very well. Extremities: Trace leg edema. Skin: No rash, ulcer, cellulitis. Lymphatics: No lymph node enlargement in neck, supraclavicular, infraclavicular region. Neuro: No focal neurological deficit. Chest: Unremarkable. External Genitalia: Deferred. Rectal: Deferred. Laboratory Data: White count 14.9, hemoglobin 10.7, platelets 340. Sodium 141 , potassium 4.1, chloride 107, bicarb 29, BUN 31, creatinine 0.60, glucose 130, albumin 2.6, prealbumin 27.6. Urinalysis 1+ esterase, wbc 10-20, bacteria less than 20. Impression: 1. Debility. 2. Generalized weakness. 3. Paroxysmal atrial fibrillation. 4. Hypertension. 5. Chronic steroid therapy. 6. Urethral stricture. 7. Sleep apnea. 8. Crohn disease. 9. Rheumatoid arthritis. 10. Ventral hernia. Plan: Admit the patient to hospital for further evaluation and management of this problem to rehab floor. Consult Dr. Chandler to manage rehab therapy. Home medications will be continued per current order that we received from [facility]. We will get a chest x-ray done, abdominal x-ray done. At this point, there are no obvious signs of any infection. Elevated WBC count could be due to steroid. We will monitor that. We will also follow up on urine culture results. He was getting IV antibiotic Invanz in [facility], but he is not currently on any antibiotic as it was discontinued prior to discharge from [facility]. We will go ahead and continue his anticoagulant medication, which is Xarelto. Currently, he is on IV steroid at appropriate time. We will change it to oral prednisone. He was taking chlorthalidone and spironolactone at home and these medications were discontinued in [facility]. We will go ahead and restart his diuretic medication at appropriate time. JORDAN/KENDALL Voice ID: [id number] MTDD
[2018-10-23] MEDS: INSULIN -REGULAR HUMAN 50 UNIT/0.5 ML ML SQ SCH ×4 (00:12→17:50)
--- NOTE | 2018-10-23 01:37 | FAST ---
SHIFT START DATE/TIME: 10/22/2018 19:00 (HOME PARAPROFESSIONAL) SHIFT END DATE/TIME: 10/23/2018 07:00 (HOME PARAPROFESSIONAL) NAME TENA ESTRADA DATE OF : 1960 DATE OF ADMISSION: 10/21/2018 22:32 (HOME PARAPROFESSIONAL) PHONE: AGE: 57 SSN# [id number] GENDER: Male ENCOUNTER PHYSICIAN: Dr. Jesus Chandler M.D. ADMISSION DIAGNOSIS: - Debility 16 - Debility (16) SMALL BOWEL OBSTRUCTION. EATING: Activity did not occur on this shift EATING - SCORE: 0-UNK GROOMING: Wash, rinse, and dry hands GROOMING - STEP 1: Does the patient require the assistance of a person or device, or need extra time when grooming? Yes. GROOMING - STEP 2: Does the patient require the assistance of a helper? Yes. GROOMING - STEP 3: How much assistance does the patient require from the helper? Only prior equipment preparation/set up from the helper GROOMING - SCORE: 5-SUP BATHING: Activity did not occur on this shift BATHING - SCORE: 0-UNK DRESSING - UPPER BODY: Patient is not dressing in public clothing ARTICLES SCORE Total number of steps: 0 DRESSING - UPPER BODY - SCORE: 0-UNK DRESSING - LOWER BODY: Patient is not dressing in public clothing ARTICLES SCORE Total number of steps: 0 DRESSING - LOWER BODY - SCORE: 0-UNK TOILETING: TOILETING - STEP 1: Does the patient require the assistance of a person or device, or need extra time with toileting? Yes . TOILETING - STEP 2: Does the patient require the assistance of a helper? Yes. TOILETING - STEP 3: How much assistance does the patient require from the helper? Hands-on assistance from the helper TOILETING - STEP 4: Of the 3 tasks: 1) Adjusting clothing prior to use, 2) Cleansing of perineal area, 3) Adjusting clot heber after use; How many tasks does the patient perform WITHOUT assistance of the helper? Two tasks TOILETING - SCORE: 3-MOD BLADDER MANAGEMENT: BLADDER MANAGEMENT - STEP 1: Does the patient control the bladder completely and intentionally without equipment or devices or med ications, and is always continent? No. BLADDER MANAGEMENT - STEP 2: Does the patient require the assistance of a helper? Yes. BLADDER MANAGEMENT - STEP 3: How much assistance does the patient require from the helper? Only supervision, stand-by, cuing, or c oaxing BLADDER MANAGEMENT - SCORE: 5-SUP BOWEL MANAGEMENT: BOWEL MANAGEMENT - STEP 1: Does the patient control bowels completely and intentionally without equipment devices or medications AND is always continent? No. BOWEL MANAGEMENT - STEP 2: Does the patient require the assistance of a helper? No, patient requires medication for control such as stool softeners, suppositories, laxatives, enemas, or OTC medications BOWEL MANAGEMENT - SCORE: 6-BRI TRANSFERS: BED, CHAIR, WHEELCHAIR: TRANSFERS: BED, CHAIR, WHEELCHAIR - STEP 1: Does the patient require assitance of a person or device, or need extra time with bed, chair, or whee lchair transfers? Yes. TRANSFERS: BED, CHAIR, WHEELCHAIR - STEP 2: Does the patient require the assistance of a helper? Yes. TRANSFERS: BED, CHAIR, WHEELCHAIR - STEP 3: How much assistance does the patient require from the helper? Lifting of the legs TRANSFERS: BED, CHAIR, WHEELCHAIR - STEP 4: How many legs does the patient require the helper to lift? both legs TRANSFERS: BED, CHAIR, WHEELCHAIR - SCORE: 3-MOD TRANSFERS: TOILET: TRANSFERS: TOILET - STEP 1: Does the patient require the assistance of a person or device, or need extra time with toilet transfe rs? Yes. TRANSFERS: TOILET - STEP 2: Does the patient require the assistance of a helper? Yes. TRANSFERS: TOILET - STEP 3: How much assistance does the patient require from the helper? Patient performs half or more of the tr ansferring tasks TRANSFERS: TOILET - STEP 4: Does the patient need only incidental help such as contact guard or steadying during toilet transfer? Yes. TRANSFERS: TOILET - SCORE: 4-MIN TRANSFERS: SHOWER: Activity did not occur on this shift TRANSFERS: SHOWER - SCORE: 0-UNK TRANSFERS: TUB: Activity did not occur on this shift TRANSFERS: TUB - SCORE: 0-UNK LOCOMOTION: WALK: Activity did not occur on this shift LOCOMOTION: WALK - SCORE: 0-UNK LOCOMOTION: WHEELCHAIR: Activity did not occur on this shift LOCOMOTION: WHEELCHAIR - SCORE: 0-UNK COMPREHENSION: COMPREHENSION: TYPE: Both COMPREHENSION - STEP 1: Does the patient require help from a person or device, or need extra time to understand complex and a bstract ideas (such as current events, finances, discharge planning, medical issues, relationships, e tc)? No. COMPREHENSION - STEP 2: Does the patient need extra time, require an assistive device (such as glasses for visual comprehensi on or a hearing aid for auditory comprehension) or does s/he have mild difficulty understanding compl ex and abstract information? Yes. COMPREHENSION - SCORE: 6-BRI EXPRESSION EXPRESSION: TYPE: Both EXPRESSION - STEP 1: Does the patient require help from a person or device, or need extra time expressing complex and abst ract ideas (such as current events, finances, discharge planning, medical issues, relationships, etc) ? No. EXPRESSION - STEP 2: Does the patient need extra time, require an assistive device (such as augmentive communication syste m or a communication board), OR does s/he have mild difficulty expressing complex and abstract ideas (including mild dysarthria or mild word-find problems)? No. EXPRESSION - SCORE: 7-IND SOCIAL INTERACTION: SOCIAL INTERACTION - STEP 1: Does the patient require a helper to interact with others in social and therapeutic situations? No. SOCIAL INTERACTION - STEP 2: Does the patient need extra time in social situations, OR does s/he interact with staff, other patien ts, and family members ONLY in structured environments, OR does s/he require medication for social in teraction? Yes, patient needs extra time SOCIAL INTERACTION - SCORE: 6-BRI PROBLEM SOLVING: PROBLEM SOLVING - STEP 1: Does the patient need help from a person or device, or need extra time to solve complex problems such as managing a checking account or confronting interpersonal problems? No. PROBLEM SOLVING - STEP 2: Does the patient require extra time to make decisions or solve problems, OR does s/he have slight dif ficulty reading, initiating, or self-correcting in unfamiliar situations? Yes, patient needs extra ti me. PROBLEM SOLVING - SCORE: 6-BRI MEMORY: MEMORY - STEP 1: Does the patient need help from a person or device, or need extra time to remember frequently encount ered people, daily routines, and executing requests? No. MEMORY - STEP 2: Does the patient have slight difficulty recognizing frequently encountered people, daily routines, or executing requests without the need for repetition or using self-initiated or environmental cues to remember? No. MEMORY - SCORE: 7-IND SIGNATURE PANEL: The following modified sections: Eating - Score, Grooming - Score, Dressing - Upper Body - Score, Rigoberto ssing - Lower Body - Score, Toileting - Score, Bladder Management - Score, Bowel Management - Score, Transfers: Bed, Chair, Wheelchair - Score, Transfers: Toilet - Score, Transfers: Shower - Score, Fraga sfers: Tub - Score, Locomotion: Walk - Score, Locomotion: Wheelchair - Score, Comprehension - Score, Expression - Score, Social Interaction - Score, Problem Solving - Score, Memory - Score were [electro nically] signed by Ciara Crane CNA on WedOct 23 2018 01:36:40 GMT-0600 (Central Standard Time)
[2018-10-23] MEDS: HYDROCODONE/APAP 10/325 TAB PO PRN ×3 (03:04→19:03)
[2018-10-23] MEDS: SOTALOL HCL 80 MG TAB PO SCH ×2 (05:30→16:59)
[2018-10-23] MEDS: PANTOPRAZOLE 40MG TABLET PO SCH (06:47)
[2018-10-23] MEDS: PROMETHAZINE 25 MG/ML VIAL IV PRN ×4 (06:47→22:32)
[2018-10-23] MEDS: POLYETHYL GLY 3350 17 GM/DOSE PO SCH ×2 (08:00→08:05)
[2018-10-23] MEDS: PROMOD 30 ML DOSE PO SCH ×2 (08:00→19:04)
[2018-10-23] MEDS: DOCUSATE NA/SENNA CONC 1 TAB PO SCH ×3 (08:00→19:05)
[2018-10-23] MEDS: METHYLPREDNISOLONE 40 MG INJ IV SCH (08:04)
[2018-10-23] MEDS: MULTIVITAMIN TAB PO SCH (08:05)
[2018-10-23] MEDS: FOLIC ACID 1 MG TABLET PO SCH (08:05)
[2018-10-23] MEDS: DULOXETINE 30 MG CAP PO SCH (08:05)
[2018-10-23] MEDS: FERROUS SULFATE 325 MG TAB PO SCH (08:05)
[2018-10-23] MEDS: FE SULF/FA/VIT B COMP & C TAB PO SCH (08:05)
--- NOTE | 2018-10-23 14:40 | FAST ---
SHIFT START DATE/TIME: 10/23/2018 07:00 (REEXAMINER) SHIFT END DATE/TIME: 10/23/2018 19:00 (REEXAMINER) NAME TENA ESTRADA DATE OF : 1960 DATE OF ADMISSION: 10/21/2018 22:32 (REEXAMINER) PHONE: AGE: 57 SSN# [id number] GENDER: Male ENCOUNTER PHYSICIAN: Dr. Jesus Chandler M.D. ADMISSION DIAGNOSIS: - Debility 16 - Debility (16) SMALL BOWEL OBSTRUCTION. EATING: EATING - STEP 1: Does the patient require the assistance of a person or device, or need extra time when eating? Yes. EATING - STEP 2: Does the patient require the assistance of a helper? No, patient only requires an assistive device, O R s/he takes more than reasonable time to eat, OR there is a safety concern, OR s/he requires modifie d food consistency EATING - SCORE: 6-BRI GROOMING: Comb/brush hair Oral care Patient applied make-up GROOMING - STEP 1: Does the patient require the assistance of a person or device, or need extra time when grooming? No. GROOMING - SCORE: 7-IND BATHING: Activity did not occur on this shift BATHING - SCORE: 0-UNK DRESSING - UPPER BODY: Activity did not occur on this shift ARTICLES SCORE Total number of steps: 0 DRESSING - UPPER BODY - SCORE: 0-UNK DRESSING - LOWER BODY: Activity did not occur on this shift ARTICLES SCORE Total number of steps: 0 DRESSING - LOWER BODY - SCORE: 0-UNK TOILETING: TOILETING - STEP 1: Does the patient require the assistance of a person or device, or need extra time with toileting? Yes . TOILETING - STEP 2: Does the patient require the assistance of a helper? Yes. TOILETING - STEP 3: How much assistance does the patient require from the helper? Hands-on assistance from the helper TOILETING - STEP 4: Of the 3 tasks: 1) Adjusting clothing prior to use, 2) Cleansing of perineal area, 3) Adjusting clot heber after use; How many tasks does the patient perform WITHOUT assistance of the helper? Three tasks with steadying assistance from the helper TOILETING - SCORE: 4-MIN BLADDER MANAGEMENT: BLADDER MANAGEMENT - STEP 1: Does the patient control the bladder completely and intentionally without equipment or devices or med ications, and is always continent? No. BLADDER MANAGEMENT - STEP 2: Does the patient require the assistance of a helper? No, patient requires and independently uses an a ssistive device, such as a urinal, bedpan, bedside commode, catheter, absorbent pad, or collecting de vice BLADDER MANAGEMENT - SCORE: 6-BRI BOWEL MANAGEMENT: Activity did not occur on this shift BOWEL MANAGEMENT - SCORE: 7-IND TRANSFERS: BED, CHAIR, WHEELCHAIR: TRANSFERS: BED, CHAIR, WHEELCHAIR - STEP 1: Does the patient require assitance of a person or device, or need extra time with bed, chair, or whee lchair transfers? Yes. TRANSFERS: BED, CHAIR, WHEELCHAIR - STEP 2: Does the patient require the assistance of a helper? Yes. TRANSFERS: BED, CHAIR, WHEELCHAIR - STEP 3: How much assistance does the patient require from the helper? Steadying/guiding assistance TRANSFERS: BED, CHAIR, WHEELCHAIR - SCORE: 4-MIN TRANSFERS: TOILET: TRANSFERS: TOILET - STEP 1: Does the patient require the assistance of a person or device, or need extra time with toilet transfe rs? Yes. TRANSFERS: TOILET - STEP 2: Does the patient require the assistance of a helper? Yes. TRANSFERS: TOILET - STEP 3: How much assistance does the patient require from the helper? Patient performs half or more of the tr ansferring tasks TRANSFERS: TOILET - STEP 4: Does the patient need only incidental help such as contact guard or steadying during toilet transfer? Yes. TRANSFERS: TOILET - SCORE: 4-MIN TRANSFERS: SHOWER: Activity did not occur on this shift TRANSFERS: SHOWER - SCORE: 0-UNK TRANSFERS: TUB: Activity did not occur on this shift TRANSFERS: TUB - SCORE: 0-UNK LOCOMOTION: WALK: Activity did not occur on this shift LOCOMOTION: WALK - SCORE: 0-UNK LOCOMOTION: WHEELCHAIR: Activity did not occur on this shift LOCOMOTION: WHEELCHAIR - SCORE: 0-UNK COMPREHENSION: COMPREHENSION: TYPE: Both COMPREHENSION - STEP 1: Does the patient require help from a person or device, or need extra time to understand complex and a bstract ideas (such as current events, finances, discharge planning, medical issues, relationships, e tc)? No. COMPREHENSION - STEP 2: Does the patient need extra time, require an assistive device (such as glasses for visual comprehensi on or a hearing aid for auditory comprehension) or does s/he have mild difficulty understanding compl ex and abstract information? No. COMPREHENSION - SCORE: 7-IND EXPRESSION EXPRESSION: TYPE: Both EXPRESSION - STEP 1: Does the patient require help from a person or device, or need extra time expressing complex and abst ract ideas (such as current events, finances, discharge planning, medical issues, relationships, etc) ? No. EXPRESSION - STEP 2: Does the patient need extra time, require an assistive device (such as augmentive communication syste m or a communication board), OR does s/he have mild difficulty expressing complex and abstract ideas (including mild dysarthria or mild word-find problems)? Yes. EXPRESSION - SCORE: 6-BRI SOCIAL INTERACTION: SOCIAL INTERACTION - STEP 1: Does the patient require a helper to interact with others in social and therapeutic situations? No. SOCIAL INTERACTION - STEP 2: Does the patient need extra time in social situations, OR does s/he interact with staff, other patien ts, and family members ONLY in structured environments, OR does s/he require medication for social in teraction? Yes, patient needs extra time SOCIAL INTERACTION - SCORE: 6-BRI PROBLEM SOLVING: PROBLEM SOLVING - STEP 1: Does the patient need help from a person or device, or need extra time to solve complex problems such as managing a checking account or confronting interpersonal problems? No. PROBLEM SOLVING - STEP 2: Does the patient require extra time to make decisions or solve problems, OR does s/he have slight dif ficulty reading, initiating, or self-correcting in unfamiliar situations? Yes, patient needs extra ti me. PROBLEM SOLVING - SCORE: 6-BRI MEMORY: MEMORY - STEP 1: Does the patient need help from a person or device, or need extra time to remember frequently encount ered people, daily routines, and executing requests? No. MEMORY - STEP 2: Does the patient have slight difficulty recognizing frequently encountered people, daily routines, or executing requests without the need for repetition or using self-initiated or environmental cues to remember? Yes. MEMORY - SCORE: 6-BRI SIGNATURE PANEL: The following modified sections: Eating - Score, Grooming - Score, Bathing - Score, Dressing - Upper Body - Score, Dressing - Lower Body - Score, Toileting - Score, Bladder Management - Score, Bowel Man agement - Score, Transfers: Bed, Chair, Wheelchair - Score, Transfers: Toilet - Score, Transfers: Ivon wer - Score, Transfers: Tub - Score, Locomotion: Walk - Score, Locomotion: Wheelchair - Score, Compre hension - Score, Expression - Score, Social Interaction - Score, Problem Solving - Score, Memory - Sc ore were [electronically] signed by Karan Jung on WedOct 23 2018 14:40:09 GMT-0600 (Central Standard Time)
[2018-10-23] MEDS: RIVAROXABAN 20 MG TABLET PO SCH (16:14)
[2018-10-23] MEDS: D5 0.9 NS 1,000 ML IV SCH (16:14)
--- NOTE | 2018-10-23 16:45 | PN ---
Date of Progress Note: 10/23/2018 Subjective: The patient was seen this morning for followup. No new complaints or problems reported by the patient. He was sitting in the chair. Reports having 2 large bowel movement yesterday, and t matheus his appetite was much better this morning. Informs me that this is the best that he has felt in last 3 weeks. Objective: Vital Signs: Reviewed. HEENT: Unremarkable. Lungs: Clear to auscultation. Heart: Heart sounds normal. Abdomen: Soft. Bowel sounds normal. No guarding, rigidity, tenderness, or distention. Extremities: No leg edema. Impression: 1.Debility, generalized weakness. 2.Ileus. 3.Status post small bowel obstruction. 4.Chronic steroid therapy. 5.Paroxysmal atrial fibrillation. Plan: We will go ahead and continue TPN. The goal is to consider to discontinue TPN in next day or 2 days depending on how he does with his oral intake of food. We will discontinue IV steroids, gudino e it to oral prednisone. His maintenance dose of prednisone prior to this recent illness was 20 mg d aily. We will go ahead and start him on 20 mg twice a day today, and over the period of the next 2-3 days, we will start reducing it. Continue other current medical management. I will see him tomorro w for followup. JORDAN/MODL Voice ID: [id number] Report ID: [id number]
[2018-10-23] MEDS ORDERED: D5W 1,000 ML IV SCH (17:00)
[2018-10-23] MEDS: ONDANSETRON 4 MG (ODT) TAB PO PRN (19:03)
[2018-10-23] MEDS: predniSONE 20 MG TAB PO SCH (19:03)
[2018-10-24] MEDS: INSULIN -REGULAR HUMAN 50 UNIT/0.5 ML ML SQ SCH ×3 (00:15→12:00)
--- NOTE | 2018-10-24 02:29 | FAST ---
SHIFT START DATE/TIME: 10/23/2018 19:00 (STEAM FITTER SUPERVISOR MAINTENANCE) SHIFT END DATE/TIME: 10/24/2018 07:00 (STEAM FITTER SUPERVISOR MAINTENANCE) NAME TENA ESTRADA DATE OF : 1960 DATE OF ADMISSION: 10/21/2018 22:32 (STEAM FITTER SUPERVISOR MAINTENANCE) PHONE: AGE: 57 SSN# [id number] GENDER: Male ENCOUNTER PHYSICIAN: Dr. Jesus Chandler M.D. ADMISSION DIAGNOSIS: - Debility 16 - Debility (16) SMALL BOWEL OBSTRUCTION. EATING: Activity did not occur on this shift EATING - SCORE: 0-UNK GROOMING: Activity did not occur on this shift GROOMING - SCORE: 0-UNK BATHING: Activity did not occur on this shift BATHING - SCORE: 0-UNK DRESSING - UPPER BODY: Patient is not dressing in public clothing ARTICLES SCORE Total number of steps: 0 DRESSING - UPPER BODY - SCORE: 0-UNK DRESSING - LOWER BODY: Patient is not dressing in public clothing ARTICLES SCORE Total number of steps: 0 DRESSING - LOWER BODY - SCORE: 0-UNK TOILETING: TOILETING - STEP 1: Does the patient require the assistance of a person or device, or need extra time with toileting? Yes . TOILETING - STEP 2: Does the patient require the assistance of a helper? Yes. TOILETING - STEP 3: How much assistance does the patient require from the helper? Only supervision TOILETING - SCORE: 5-SUP BLADDER MANAGEMENT: BLADDER MANAGEMENT - STEP 1: Does the patient control the bladder completely and intentionally without equipment or devices or med ications, and is always continent? No. BLADDER MANAGEMENT - STEP 2: Does the patient require the assistance of a helper? Yes. BLADDER MANAGEMENT - STEP 3: How much assistance does the patient require from the helper? Only set-up of equipment - such as plac ing it within reach of the patient or emptying a device - to maintain either satisfactory voiding pat tern or managing an external device, such as an absorbent pad, ileal device, or catheter BLADDER MANAGEMENT - SCORE: 5-SUP BOWEL MANAGEMENT: Activity did not occur on this shift BOWEL MANAGEMENT - SCORE: 7-IND TRANSFERS: BED, CHAIR, WHEELCHAIR: Activity did not occur on this shift TRANSFERS: BED, CHAIR, WHEELCHAIR - SCORE: 0-UNK TRANSFERS: TOILET: Activity did not occur on this shift TRANSFERS: TOILET - SCORE: 0-UNK TRANSFERS: SHOWER: Activity did not occur on this shift TRANSFERS: SHOWER - SCORE: 0-UNK TRANSFERS: TUB: Activity did not occur on this shift TRANSFERS: TUB - SCORE: 0-UNK LOCOMOTION: WALK: Activity did not occur on this shift LOCOMOTION: WALK - SCORE: 0-UNK LOCOMOTION: WHEELCHAIR: Activity did not occur on this shift LOCOMOTION: WHEELCHAIR - SCORE: 0-UNK COMPREHENSION: COMPREHENSION: TYPE: Both COMPREHENSION - STEP 1: Does the patient require help from a person or device, or need extra time to understand complex and a bstract ideas (such as current events, finances, discharge planning, medical issues, relationships, e tc)? No. COMPREHENSION - STEP 2: Does the patient need extra time, require an assistive device (such as glasses for visual comprehensi on or a hearing aid for auditory comprehension) or does s/he have mild difficulty understanding compl ex and abstract information? Yes. COMPREHENSION - SCORE: 6-BRI EXPRESSION EXPRESSION: TYPE: Both EXPRESSION - STEP 1: Does the patient require help from a person or device, or need extra time expressing complex and abst ract ideas (such as current events, finances, discharge planning, medical issues, relationships, etc) ? No. EXPRESSION - STEP 2: Does the patient need extra time, require an assistive device (such as augmentive communication syste m or a communication board), OR does s/he have mild difficulty expressing complex and abstract ideas (including mild dysarthria or mild word-find problems)? No. EXPRESSION - SCORE: 7-IND SOCIAL INTERACTION: SOCIAL INTERACTION - STEP 1: Does the patient require a helper to interact with others in social and therapeutic situations? No. SOCIAL INTERACTION - STEP 2: Does the patient need extra time in social situations, OR does s/he interact with staff, other patien ts, and family members ONLY in structured environments, OR does s/he require medication for social in teraction? No. SOCIAL INTERACTION - SCORE: 7-IND PROBLEM SOLVING: PROBLEM SOLVING - STEP 1: Does the patient need help from a person or device, or need extra time to solve complex problems such as managing a checking account or confronting interpersonal problems? No. PROBLEM SOLVING - STEP 2: Does the patient require extra time to make decisions or solve problems, OR does s/he have slight dif ficulty reading, initiating, or self-correcting in unfamiliar situations? Yes, patient needs extra ti me. PROBLEM SOLVING - SCORE: 6-BRI MEMORY: MEMORY - STEP 1: Does the patient need help from a person or device, or need extra time to remember frequently encount ered people, daily routines, and executing requests? No. MEMORY - STEP 2: Does the patient have slight difficulty recognizing frequently encountered people, daily routines, or executing requests without the need for repetition or using self-initiated or environmental cues to remember? No. MEMORY - SCORE: 7-IND SIGNATURE PANEL: The following modified sections: Eating - Score, Grooming - Score, Dressing - Upper Body - Score, Rigoberto ssing - Lower Body - Score, Toileting - Score, Bladder Management - Score, Bowel Management - Score, Transfers: Bed, Chair, Wheelchair - Score, Transfers: Toilet - Score, Transfers: Shower - Score, Fraga sfers: Tub - Score, Locomotion: Walk - Score, Locomotion: Wheelchair - Score, Comprehension - Score, Expression - Score, Social Interaction - Score, Problem Solving - Score, Memory - Score were [electro nically] signed by Ciara Crane CNA on WedOct 24 2018 02:28:58 GMT-0600 (Central Standard Time)
[2018-10-24] MEDS: HYDROCODONE/APAP 10/325 TAB PO PRN ×4 (05:35→21:56)
[2018-10-24] MEDS: SOTALOL HCL 80 MG TAB PO SCH ×2 (05:35→17:01)
[2018-10-24] MEDS: PROMETHAZINE 25 MG/ML VIAL IV PRN ×3 (05:35→18:26)
[2018-10-24] MEDS: PANTOPRAZOLE 40MG TABLET PO SCH (06:42)
[2018-10-24] MEDS: FERROUS SULFATE 325 MG TAB PO SCH (07:34)
[2018-10-24] MEDS: FE SULF/FA/VIT B COMP & C TAB PO SCH (07:34)
[2018-10-24] MEDS: FOLIC ACID 1 MG TABLET PO SCH (07:34)
[2018-10-24] MEDS: predniSONE 20 MG TAB PO SCH ×2 (07:34→19:31)
[2018-10-24] MEDS: MULTIVITAMIN TAB PO SCH (07:34)
[2018-10-24] MEDS: DULOXETINE 30 MG CAP PO SCH (07:34)
[2018-10-24] MEDS: DOCUSATE NA/SENNA CONC 1 TAB PO SCH ×2 (07:35→20:00)
[2018-10-24] MEDS: PROMOD 30 ML DOSE PO SCH ×2 (07:35→20:00)
[2018-10-24] MEDS: POLYETHYL GLY 3350 17 GM/DOSE PO SCH (07:35)
[2018-10-24] MEDS: PROMETHAZINE 25 MG TABLET PO PRN (10:20)
[2018-10-24] MEDS: D5 0.9 NS 1,000 ML IV SCH (11:43)
--- NOTE | 2018-10-24 13:52 | FAST ---
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 Jesus Chandler M.D. ADMISSION DIAGNOSIS: - Debility 16 - Debility (16) SMALL BOWEL OBSTRUCTION. EATING: EATING - STEP 1: Does the patient require the assistance of a person or device, or need extra time when eating? Yes. EATING - STEP 2: Does the patient require the assistance of a helper? No, patient only requires an assistive device, O R s/he takes more than reasonable time to eat, OR there is a safety concern, OR s/he requires modifie d food consistency EATING - SCORE: 6-BRI GROOMING: Activity did not occur on this shift GROOMING - SCORE: 0-UNK BATHING: Activity did not occur on this shift BATHING - SCORE: 0-UNK DRESSING - UPPER BODY: T-shirt/pullover shirt (four steps) ARTICLES SCORE Total number of steps: 4 DRESSING - UPPER BODY - STEP 1: Does the patient require help from a person or device, or need extra time when dressing above the [address]? Yes. DRESSING - UPPER BODY - STEP 2: Does the patient require the assistance of a helper? No. Patient only requires an assistive device, s uch as a button hook, velcro, or oyster picker. OR s/he takes more than reasonable time as s/he dresses the upper body. OR there is a concern for safety when s/he dresses the upper body DRESSING - UPPER BODY - SCORE: 6-BRI DRESSING - LOWER BODY: Elastic waist pants (three steps) Sock - Left foot (one step) Sock - Right foot (one step) Underwear (three steps) ARTICLES SCORE Total number of steps: 8 DRESSING - LOWER BODY - STEP 1: Does the patient require help from a person or device, or need extra time when dressing below the [address]? Yes. DRESSING - LOWER BODY - STEP 2: Does the patient require the assistance of a helper? Yes. DRESSING - LOWER BODY - STEP 3: Does the helper touch the patient while dressing? No. DRESSING - LOWER BODY - SCORE: 5-SUP TOILETING: TOILETING - STEP 1: Does the patient require the assistance of a person or device, or need extra time with toileting? Yes . TOILETING - STEP 2: Does the patient require the assistance of a helper? Yes. TOILETING - STEP 3: How much assistance does the patient require from the helper? Only supervision TOILETING - SCORE: 5-SUP BLADDER MANAGEMENT: BLADDER MANAGEMENT - STEP 1: Does the patient control the bladder completely and intentionally without equipment or devices or med ications, and is always continent? No. BLADDER MANAGEMENT - STEP 2: Does the patient require the assistance of a helper? No, patient only requires extra time BLADDER MANAGEMENT - SCORE: 6-BRI BLADDER MANAGEMENT - FREQUENCY OF ACCIDENTS: BLADDER MANAGEMENT(FA) - STEP 1: How many accidents has the patient had during the current shift? 0 BOWEL MANAGEMENT: Activity did not occur on this shift BOWEL MANAGEMENT - SCORE: 7-IND BOWEL MANAGEMENT - FREQUENCY OF ACCIDENTS: BOWEL MANAGEMENT(FA) - STEP 1: How many accidents has the patient had during the current shift? 0 TRANSFERS: BED, CHAIR, WHEELCHAIR: TRANSFERS: BED, CHAIR, WHEELCHAIR - STEP 1: Does the patient require assitance of a person or device, or need extra time with bed, chair, or whee lchair transfers? Yes. TRANSFERS: BED, CHAIR, WHEELCHAIR - STEP 2: Does the patient require the assistance of a helper? Yes. TRANSFERS: BED, CHAIR, WHEELCHAIR - STEP 3: How much assistance does the patient require from the helper? Only supervision TRANSFERS: BED, CHAIR, WHEELCHAIR - SCORE: 5-SUP TRANSFERS: TOILET: TRANSFERS: TOILET - STEP 1: Does the patient require the assistance of a person or device, or need extra time with toilet transfe rs? Yes. TRANSFERS: TOILET - STEP 2: Does the patient require the assistance of a helper? Yes. TRANSFERS: TOILET - STEP 3: How much assistance does the patient require from the helper? Patient performs half or more of the tr ansferring tasks TRANSFERS: TOILET - STEP 4: Does the patient need only incidental help such as contact guard or steadying during toilet transfer? Yes. TRANSFERS: TOILET - SCORE: 4-MIN TRANSFERS: SHOWER: Activity did not occur on this shift TRANSFERS: SHOWER - SCORE: 0-UNK TRANSFERS: TUB: Activity did not occur on this shift TRANSFERS: TUB - SCORE: 0-UNK LOCOMOTION: WALK: LOCOMOTION: WALK - STEP 1: Does the patient need help from a person or device, or need extra time to walk 150 feet? Yes. LOCOMOTION: WALK - STEP 2: How much assistance does the patient require to walk a minimum of 150 feet? Only supervision, cuing, or coaxing LOCOMOTION: WALK - SCORE: 5-SUP LOCOMOTION: WHEELCHAIR: Activity did not occur on this shift LOCOMOTION: WHEELCHAIR - SCORE: 0-UNK COMPREHENSION: COMPREHENSION: TYPE: Both COMPREHENSION - STEP 1: Does the patient require help from a person or device, or need extra time to understand complex and a bstract ideas (such as current events, finances, discharge planning, medical issues, relationships, e tc)? No. COMPREHENSION - STEP 2: Does the patient need extra time, require an assistive device (such as glasses for visual comprehensi on or a hearing aid for auditory comprehension) or does s/he have mild difficulty understanding compl ex and abstract information? Yes. COMPREHENSION - SCORE: 6-BRI EXPRESSION EXPRESSION: TYPE: Both EXPRESSION - STEP 1: Does the patient require help from a person or device, or need extra time expressing complex and abst ract ideas (such as current events, finances, discharge planning, medical issues, relationships, etc) ? No. EXPRESSION - STEP 2: Does the patient need extra time, require an assistive device (such as augmentive communication syste m or a communication board), OR does s/he have mild difficulty expressing complex and abstract ideas (including mild dysarthria or mild word-find problems)? Yes. EXPRESSION - SCORE: 6-BRI SOCIAL INTERACTION: SOCIAL INTERACTION - STEP 1: Does the patient require a helper to interact with others in social and therapeutic situations? No. SOCIAL INTERACTION - STEP 2: Does the patient need extra time in social situations, OR does s/he interact with staff, other patien ts, and family members ONLY in structured environments, OR does s/he require medication for social in teraction? Yes, patient needs extra time SOCIAL INTERACTION - SCORE: 6-BRI PROBLEM SOLVING: PROBLEM SOLVING - STEP 1: Does the patient need help from a person or device, or need extra time to solve complex problems such as managing a checking account or confronting interpersonal problems? No. PROBLEM SOLVING - STEP 2: Does the patient require extra time to make decisions or solve problems, OR does s/he have slight dif ficulty reading, initiating, or self-correcting in unfamiliar situations? Yes, patient needs extra ti me. PROBLEM SOLVING - SCORE: 6-BRI MEMORY: MEMORY - STEP 1: Does the patient need help from a person or device, or need extra time to remember frequently encount ered people, daily routines, and executing requests? No. MEMORY - STEP 2: Does the patient have slight difficulty recognizing frequently encountered people, daily routines, or executing requests without the need for repetition or using self-initiated or environmental cues to remember? Yes. MEMORY - SCORE: 6-BRI SIGNATURE PANEL: The following modified sections: Eating - Score, Grooming - Score, Bathing - Score, Dressing - Upper Body - Score, Dressing - Lower Body - Score, Toileting - Score, Transfers: Bed, Chair, Wheelchair - S core, Transfers: Shower - Score, Transfers: Tub - Score, Locomotion: Walk - Score, Locomotion: Wheelc hair - Score, Comprehension - Score, Expression - Score, Social Interaction - Score, Problem Solving - Score, Memory - Score, Bladder Management - Score, Bowel Management - Score, Transfers: Toilet - Sc ore were [electronically] signed by Kylie Toussaint C.N.A. on WedOct 24 2018 13:51:40 GMT-0600 (Cent[place] Standard Time)
--- NOTE | 2018-10-24 15:51 | FAST ---
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 Jesus Chandler M.D. ADMISSION DIAGNOSIS: - Debility 16 - Debility (16) SMALL BOWEL OBSTRUCTION. EATING: EATING - STEP 1: Does the patient require the assistance of a person or device, or need extra time when eating? No. EATING - SCORE: 7-IND GROOMING: Comb/brush hair Wash, rinse, and dry face Wash, rinse, and dry hands GROOMING - STEP 1: Does the patient require the assistance of a person or device, or need extra time when grooming? No. GROOMING - SCORE: 7-IND BATHING: Abdomen Buttocks Chest Left arm Left lower leg and foot Left upper leg Perineal area Right arm Right lower leg and foot Right upper leg BATHING - STEP 1: Does the patient require the assistance of a person or device, or need extra time when bathing? Yes. BATHING - STEP 2: Does the patient require the assistance of a helper? Yes. BATHING - STEP 3: How much assistance does the patient require from the helper? Only supervision, cuing, coaxing, instr uctions, encouragement BATHING - SCORE: 5-SUP DRESSING - UPPER BODY: T-shirt/pullover shirt (four steps) ARTICLES SCORE Total number of steps: 4 DRESSING - UPPER BODY - STEP 1: Does the patient require help from a person or device, or need extra time when dressing above the [address]? Yes. DRESSING - UPPER BODY - STEP 2: Does the patient require the assistance of a helper? Yes. DRESSING - UPPER BODY - STEP 3: Does the helper touch the patient while dressing? No. DRESSING - UPPER BODY - SCORE: 5-SUP DRESSING - LOWER BODY: Elastic waist pants (three steps) Sock - Left foot (one step) Sock - Right foot (one step) Tied or buckled shoe - Left foot (two steps) Tied or buckled shoe - Right foot (two steps) Underwear (three steps) ARTICLES SCORE Total number of steps: 12 DRESSING - LOWER BODY - STEP 1: Does the patient require help from a person or device, or need extra time when dressing below the [address]? Yes. DRESSING - LOWER BODY - STEP 2: Does the patient require the assistance of a helper? Yes. DRESSING - LOWER BODY - STEP 3: Does the helper touch the patient while dressing? Yes. DRESSING - LOWER BODY - STEP 4: How many of the total steps does the patient complete on his/her own? 8 DRESSING - LOWER BODY - SCORE: 3-MOD TOILETING: Activity did not occur on this shift TOILETING - SCORE: 0-UNK BLADDER MANAGEMENT: Activity did not occur on this shift BLADDER MANAGEMENT - SCORE: 7-IND BOWEL MANAGEMENT: Activity did not occur on this shift BOWEL MANAGEMENT - SCORE: 7-IND TRANSFERS: BED, CHAIR, WHEELCHAIR: Activity did not occur on this shift TRANSFERS: BED, CHAIR, WHEELCHAIR - SCORE: 0-UNK TRANSFERS: TOILET: Activity did not occur on this shift TRANSFERS: TOILET - SCORE: 0-UNK TRANSFERS: SHOWER: TRANSFERS: SHOWER - STEP 1: Does the patient require the assistance of a person or device, or need extra time with shower transfe rs? Yes. TRANSFERS: SHOWER - STEP 2: Does the patient require the assistance of a helper? No. The patient only uses an assistive device, t akes more than reasonable time, OR there is a concern for safety when s/he performs transfers. TRANSFERS: SHOWER - SCORE: 6-BRI TRANSFERS: TUB: Activity did not occur on this shift TRANSFERS: TUB - SCORE: 0-UNK LOCOMOTION: WALK: Activity did not occur on this shift LOCOMOTION: WALK - SCORE: 0-UNK LOCOMOTION: WHEELCHAIR: Activity did not occur on this shift LOCOMOTION: WHEELCHAIR - SCORE: 0-UNK LOCOMOTION: STAIRS: Activity did not occur on this shift LOCOMOTION: STAIRS - SCORE: 0-UNK COMPREHENSION: COMPREHENSION: TYPE: Both COMPREHENSION - STEP 1: Does the patient require help from a person or device, or need extra time to understand complex and a bstract ideas (such as current events, finances, discharge planning, medical issues, relationships, e tc)? No. COMPREHENSION - STEP 2: Does the patient need extra time, require an assistive device (such as glasses for visual comprehensi on or a hearing aid for auditory comprehension) or does s/he have mild difficulty understanding compl ex and abstract information? No. COMPREHENSION - SCORE: 7-IND EXPRESSION EXPRESSION: TYPE: Both EXPRESSION - STEP 1: Does the patient require help from a person or device, or need extra time expressing complex and abst ract ideas (such as current events, finances, discharge planning, medical issues, relationships, etc) ? No. EXPRESSION - STEP 2: Does the patient need extra time, require an assistive device (such as augmentive communication syste m or a communication board), OR does s/he have mild difficulty expressing complex and abstract ideas (including mild dysarthria or mild word-find problems)? No. EXPRESSION - SCORE: 7-IND SOCIAL INTERACTION: SOCIAL INTERACTION - STEP 1: Does the patient require a helper to interact with others in social and therapeutic situations? No. SOCIAL INTERACTION - STEP 2: Does the patient need extra time in social situations, OR does s/he interact with staff, other patien ts, and family members ONLY in structured environments, OR does s/he require medication for social in teraction? Yes, patient requires medication for social interaction SOCIAL INTERACTION - SCORE: 6-BRI PROBLEM SOLVING: PROBLEM SOLVING - STEP 1: Does the patient need help from a person or device, or need extra time to solve complex problems such as managing a checking account or confronting interpersonal problems? No. PROBLEM SOLVING - STEP 2: Does the patient require extra time to make decisions or solve problems, OR does s/he have slight dif ficulty reading, initiating, or self-correcting in unfamiliar situations? No. PROBLEM SOLVING - SCORE: 7-IND MEMORY: MEMORY - STEP 1: Does the patient need help from a person or device, or need extra time to remember frequently encount ered people, daily routines, and executing requests? No. MEMORY - STEP 2: Does the patient have slight difficulty recognizing frequently encountered people, daily routines, or executing requests without the need for repetition or using self-initiated or environmental cues to remember? No. MEMORY - SCORE: 7-IND SIGNATURE PANEL: The following modified sections: Eating - Score, Grooming - Score, Bathing - Score, Dressing - Upper Body - Score, Dressing - Lower Body - Score, Toileting - Score, Transfers: Bed, Chair, Wheelchair - S core, Transfers: Toilet - Score, Transfers: Tub - Score, Transfers: Shower - Score, Comprehension - S core, Expression - Score, Social Interaction - Score, Problem Solving - Score, Memory - Score were [e lectronically] signed by Vivian Small OT on WedOct 24 2018 15:51:15 GMT-0600 (Central Standard [place])
[2018-10-24] MEDS: RIVAROXABAN 20 MG TABLET PO SCH (17:02)
--- NOTE | 2018-10-24 17:30 | R.PN ---
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 Status post abdominal surgery SUBJECTIVE: Pt denied any Shortness of Breath. Pt denied any depression. VITAL SIGNS Temperature: 97.2 F SBP/DBP: 106/62 Pulse: 70 Resp: 16 MEDICATION ALLERGIES: Demerol REMICADE ENVIRONMENTAL ALLERGIES: None Known - Substance Allergies None Known - Other Allergies LATEX NURSING: - Shower allowing shower ACTIVITIES OOB only with supervision THERAPIES: - Occupational Therapy Evaluate and Treat. - Physical Therapy Evaluate and Treat. PHYSICAL EXAM - Gen Alert and awake Lying in bed No apparent distress Oriented to: person, time, and place - Skin Healing surgical wound in the abdomen. - Eyes No abnormalities - ENMT No abnormalities - Neck No abnormalities - CVS RRR - Chest Incision is healing with good hemostasis. - Resp No wheezing - Abd +bowel sounds - GI Obese Deferred - No abnormalities - Ext Mild bilateral lower extremity edema. - MSK 4+/5 weakness in both lower extremities. - Neuro 4/5 strength bilaterally upper and lower extremities. - Psych No abnormalities ASSESSMENT: Pt. is a 57 yo Right-handed white male.On 10/05/2018 he was admitted to [facility] with diagno sis SMALL BOWEL OBSTRUCTION.His impairment category is Debility 16 - Debility (16).Pre-morbidly, Pt. was independent/mod-I in Communication, Social Cognition, Self-Care, Locomotion, Sphincter Control, and Transfers Control; and he had good Sphincter Control.Currently, he has deficits of Balance, Self- Care, Locomotion, Endurance, Safety Awareness, and Transfers Control.Pt. is now referred to [facility] for acute in-patient rehabilitation in order to maximize patient's functiona l independence in activities of daily living, strength, ROM, and mobility.- Rehab Goal Patient has realistic goal of being discharged at assistance level 6-Erasmo to reside at Home with Fam james/Relatives. MDM/PLAN: - Physical Therapy Gait dysfunction - to improve, our physical therapists will perform initial evaluation of pt's statu s upon admission and devise an individualized program for Gait Training, and Wheel Chair mobility Inability to transfer - to improve, our physical therapists will perform initial evaluation of pt's status upon admission and devise an individualized program for Bed mobility Need for home safety evaluation - to improve, our physical therapists will perform initial evaluatio n of pt's status upon admission and devise an individualized program for Home Evaluation Need in caregiver upon discharge - to improve, our physical therapists will perform initial evaluati on of pt's status upon admission and devise an individualized program for Caregiver Training Edema - to improve, our physical therapists will perform initial evaluation of pt's status upon admis french and devise an individualized program for Elevation Training, and Lymphedema Therapy New precaution - to improve, our physical therapists will perform initial evaluation of pt's status upon admission and devise an individualized program for Patient precaution education Having wound - to improve, our physical therapists will perform initial evaluation of pt's status upo n admission and devise an individualized program for Wound Care Poor balance - to improve, our physical therapists will perform initial evaluation of pt's status up on admission and devise an individualized program for Balance Training Poor endurance - to improve, our physical therapists will perform initial evaluation of pt's status upon admission and devise an individualized program for Endurance Training Weakness - to improve, our physical therapists will perform initial evaluation of pt's status upon a dmission and devise an individualized program for Aquatic Therapy, Neuromuscular Reeducation, and Str engthening Achieving independence - to improve, our physical therapists will perform initial evaluation of pt's status upon admission and devise an individualized program for Community Reintegration Activities - Occupational Therapy ADL deficits - to improve, our occupation therapists will perform initial evaluation of pt's status upon admission and devise an individualized program for Bathing, Bed mobility, Community Reintegratio n, Cooking, Dressing, Eating, Fine Motor Skills, Grooming, Homemaking, Kitchen Mobility, Laundry, Pat ient Education, Safety Awareness, Splinting - Positioning, Transfers(Toilet, Tub, Shower), and Wheel Chair Management Need for reproductive healthcare assistant - to improve, our occupation therapists will perform initial evaluation of pt's status upon admission and devise an individualized program for Caregiver Training Weakness - to improve, our occupation therapists will perform initial evaluation of pt's status upon admission and devise an individualized program for Aquatic Therapy, Balance, Endurance, UE ROM, and UE strengthening - Diet Type Continue BARIATRIC FULLS - Diet - Liquid Texture Continue Regular - Tube Feed Continue N/A - Diet - Solid Texture Continue Regular - Shower allowing shower FUNCTIONAL STATUS: UPDATED AT WEEKLY TEAM CONFERENCE - Bladder Same accident frequency: 7-Ind - No accidents in the past 7 days - Bowel Same accident frequency: 7-Ind - No accidents in the past 7 days - Walking Same score based on distance walked: 3(>=150ft) - Wheelchair Same score based on distance traveled: 0(N/A) FUNCTIONAL STATUS: - Self-Care A. Eating sup B. Grooming sup C. Bathing sup D. Dressing - Upper sup E. Dressing - Lower sup F. Toileting Dep - Sphincter Control G: Bladder control Dep H: Bowel control Ind - Transfers Control I. Bed/Chair/Wheelchair sup J. Toilet Lila K. Tub/Shower Ind - Locomotion L. Walk/Wheelchair (C) Lila L. Walk/Wheelchair (W) Lila M. Stairs ADNO - Communication N. Comprehension (B) Ind O. Expression (B) Ind - Social Cognition P. Social Interaction Ind Q. Problem Solving Ind R. Memory Ind - Endurance Fair - Balance Fair - Safety Awareness Fair CURRENT FUNC. DEFICITS: Balance, Self-Care, Locomotion, Endurance, Safety Awareness, and Transfers Control SIGNATURE PANEL: ([facility])
[2018-10-24] MEDS ORDERED: PROMETHAZINE 25 MG/ML VIAL IV ONE (21:42)
[2018-10-25] MEDS: PROMETHAZINE 25 MG/ML VIAL IV PRN ×3 (01:49→15:11)
--- NOTE | 2018-10-25 01:51 | FAST ---
SHIFT START DATE/TIME: 10/24/2018 19:00 (BUILDING CODE ADMINISTRATOR) SHIFT END DATE/TIME: 10/25/2018 07:00 (BUILDING CODE ADMINISTRATOR) NAME TENA ESTRADA DATE OF : 1960 DATE OF ADMISSION: 10/21/2018 22:32 (BUILDING CODE ADMINISTRATOR) PHONE: AGE: 57 SSN# [id number] GENDER: Male ENCOUNTER PHYSICIAN: Dr. Jesus Chadnler M.D. ADMISSION DIAGNOSIS: - Debility 16 - Debility (16) SMALL BOWEL OBSTRUCTION. EATING: Activity did not occur on this shift EATING - SCORE: 0-UNK GROOMING: Activity did not occur on this shift GROOMING - SCORE: 0-UNK BATHING: Activity did not occur on this shift BATHING - SCORE: 0-UNK DRESSING - UPPER BODY: Patient is not dressing in public clothing ARTICLES SCORE Total number of steps: 0 DRESSING - UPPER BODY - SCORE: 0-UNK DRESSING - LOWER BODY: Patient is not dressing in public clothing ARTICLES SCORE Total number of steps: 0 DRESSING - LOWER BODY - SCORE: 0-UNK TOILETING: TOILETING - STEP 1: Does the patient require the assistance of a person or device, or need extra time with toileting? Yes . TOILETING - STEP 2: Does the patient require the assistance of a helper? Yes. TOILETING - STEP 3: How much assistance does the patient require from the helper? Only supervision TOILETING - SCORE: 5-SUP BLADDER MANAGEMENT: BLADDER MANAGEMENT - STEP 1: Does the patient control the bladder completely and intentionally without equipment or devices or med ications, and is always continent? No. BLADDER MANAGEMENT - STEP 2: Does the patient require the assistance of a helper? Yes. BLADDER MANAGEMENT - STEP 3: How much assistance does the patient require from the helper? Only supervision, stand-by, cuing, or c oaxing BLADDER MANAGEMENT - SCORE: 5-SUP BOWEL MANAGEMENT: Activity did not occur on this shift BOWEL MANAGEMENT - SCORE: 7-IND TRANSFERS: BED, CHAIR, WHEELCHAIR: TRANSFERS: BED, CHAIR, WHEELCHAIR - STEP 1: Does the patient require assitance of a person or device, or need extra time with bed, chair, or whee lchair transfers? Yes. TRANSFERS: BED, CHAIR, WHEELCHAIR - STEP 2: Does the patient require the assistance of a helper? Yes. TRANSFERS: BED, CHAIR, WHEELCHAIR - STEP 3: How much assistance does the patient require from the helper? Steadying/guiding assistance TRANSFERS: BED, CHAIR, WHEELCHAIR - SCORE: 4-MIN TRANSFERS: TOILET: Activity did not occur on this shift TRANSFERS: TOILET - SCORE: 0-UNK TRANSFERS: SHOWER: Activity did not occur on this shift TRANSFERS: SHOWER - SCORE: 0-UNK TRANSFERS: TUB: Activity did not occur on this shift TRANSFERS: TUB - SCORE: 0-UNK LOCOMOTION: WALK: Activity did not occur on this shift LOCOMOTION: WALK - SCORE: 0-UNK LOCOMOTION: WHEELCHAIR: Activity did not occur on this shift LOCOMOTION: WHEELCHAIR - SCORE: 0-UNK COMPREHENSION: COMPREHENSION: TYPE: Both COMPREHENSION - STEP 1: Does the patient require help from a person or device, or need extra time to understand complex and a bstract ideas (such as current events, finances, discharge planning, medical issues, relationships, e tc)? No. COMPREHENSION - STEP 2: Does the patient need extra time, require an assistive device (such as glasses for visual comprehensi on or a hearing aid for auditory comprehension) or does s/he have mild difficulty understanding compl ex and abstract information? Yes. COMPREHENSION - SCORE: 6-BRI EXPRESSION EXPRESSION: TYPE: Both EXPRESSION - STEP 1: Does the patient require help from a person or device, or need extra time expressing complex and abst ract ideas (such as current events, finances, discharge planning, medical issues, relationships, etc) ? No. EXPRESSION - STEP 2: Does the patient need extra time, require an assistive device (such as augmentive communication syste m or a communication board), OR does s/he have mild difficulty expressing complex and abstract ideas (including mild dysarthria or mild word-find problems)? No. EXPRESSION - SCORE: 7-IND SOCIAL INTERACTION: SOCIAL INTERACTION - STEP 1: Does the patient require a helper to interact with others in social and therapeutic situations? No. SOCIAL INTERACTION - STEP 2: Does the patient need extra time in social situations, OR does s/he interact with staff, other patien ts, and family members ONLY in structured environments, OR does s/he require medication for social in teraction? No. SOCIAL INTERACTION - SCORE: 7-IND PROBLEM SOLVING: PROBLEM SOLVING - STEP 1: Does the patient need help from a person or device, or need extra time to solve complex problems such as managing a checking account or confronting interpersonal problems? No. PROBLEM SOLVING - STEP 2: Does the patient require extra time to make decisions or solve problems, OR does s/he have slight dif ficulty reading, initiating, or self-correcting in unfamiliar situations? Yes, patient needs extra ti me. PROBLEM SOLVING - SCORE: 6-BRI MEMORY: MEMORY - STEP 1: Does the patient need help from a person or device, or need extra time to remember frequently encount ered people, daily routines, and executing requests? No. MEMORY - STEP 2: Does the patient have slight difficulty recognizing frequently encountered people, daily routines, or executing requests without the need for repetition or using self-initiated or environmental cues to remember? No. MEMORY - SCORE: 7-IND SIGNATURE PANEL: The following modified sections: Eating - Score, Grooming - Score, Dressing - Upper Body - Score, Rigoberto ssing - Lower Body - Score, Toileting - Score, Bladder Management - Score, Bowel Management - Score, Transfers: Bed, Chair, Wheelchair - Score, Transfers: Toilet - Score, Transfers: Shower - Score, Fraga sfers: Tub - Score, Locomotion: Walk - Score, Locomotion: Wheelchair - Score, Comprehension - Score, Expression - Score, Social Interaction - Score, Problem Solving - Score, Memory - Score were [electro nically] signed by Ciara Crane CNA on WedOct 25 2018 01:50:57 GMT-0600 (Central Standard Time)
--- NOTE | 2018-10-25 02:32 | PN ---
Date of Progress Note: 10/24/2018 Subjective: The patient was seen this morning for followup. No new complaints or problems reported by him. Lying in bed, not in distress. He is tolerating diet very well, so as of this morning, we w ill start him on a regular diet. Objective: Vital Signs: Reviewed. HEENT: Unremarkable. Lungs: Clear to auscultation. Heart: Sounds normal. Abdomen: Soft. Bowel sounds normal. No guarding, rigidity, tenderness, or distention. Extremities: No leg edema. Impression: 1.Debility. 2.Generalized weakness. 3.Hypertension. 4.Paroxysmal atrial fibrillation. Plan: We will continue current medication. Continue current prednisone. He will go ahead and prasanth nue physical therapy under guidance of Dr. Chandler and we will see him tomorrow for followup. Germain cardona and plan of treatment discussed with him. JORDAN/MODL Voice ID: [id number] Report ID: [id number]
[2018-10-25] MEDS: SOTALOL HCL 80 MG TAB PO SCH ×2 (05:37→17:08)
[2018-10-25] MEDS: PANTOPRAZOLE 40MG TABLET PO SCH (06:54)
[2018-10-25] MEDS: MULTIVITAMIN TAB PO SCH (07:26)
[2018-10-25] MEDS: FERROUS SULFATE 325 MG TAB PO SCH (07:26)
[2018-10-25] MEDS: DULOXETINE 30 MG CAP PO SCH (07:26)
[2018-10-25] MEDS: FOLIC ACID 1 MG TABLET PO SCH (07:26)
[2018-10-25] MEDS: HYDROCODONE/APAP 10/325 TAB PO PRN ×3 (07:26→21:03)
[2018-10-25] MEDS: predniSONE 20 MG TAB PO SCH ×2 (07:26→19:57)
[2018-10-25] MEDS: FE SULF/FA/VIT B COMP & C TAB PO SCH (07:26)
[2018-10-25] MEDS: PROMOD 30 ML DOSE PO SCH ×2 (07:27→19:58)
[2018-10-25] MEDS: POLYETHYL GLY 3350 17 GM/DOSE PO SCH (07:27)
[2018-10-25] MEDS: DOCUSATE NA/SENNA CONC 1 TAB PO SCH ×2 (07:27→19:57)
[2018-10-25] MEDS: SPIRONOLACTONE 25 MG TABLET PO SCH (09:05)
--- NOTE | 2018-10-25 11:21 | FAST ---
SHIFT START DATE/TIME: 10/25/2018 07:00 (PROVISIONING ANALYST) SHIFT END DATE/TIME: 10/25/2018 19:00 (PROVISIONING ANALYST) NAME TENA ESTRADA DATE OF : 1960 DATE OF ADMISSION: 10/21/2018 22:32 (PROVISIONING ANALYST) PHONE: AGE: 57 SSN# [id number] GENDER: Male ENCOUNTER PHYSICIAN: Dr. Jesus Chandler M.D. ADMISSION DIAGNOSIS: - Debility 16 - Debility (16) SMALL BOWEL OBSTRUCTION. EATING: EATING - STEP 1: Does the patient require the assistance of a person or device, or need extra time when eating? Yes. EATING - STEP 2: Does the patient require the assistance of a helper? No, patient only requires an assistive device, O R s/he takes more than reasonable time to eat, OR there is a safety concern, OR s/he requires modifie d food consistency EATING - SCORE: 6-BRI GROOMING: Comb/brush hair Oral care Wash, rinse, and dry face GROOMING - STEP 1: Does the patient require the assistance of a person or device, or need extra time when grooming? Yes. GROOMING - STEP 2: Does the patient require the assistance of a helper? No. The patient only requires an assistive devic e, OR takes more than reasonable time to groom, OR there is a concern for safety as the patient groom s GROOMING - SCORE: 6-BRI BATHING: Activity did not occur on this shift BATHING - SCORE: 0-UNK DRESSING - UPPER BODY: T-shirt/pullover shirt (four steps) ARTICLES SCORE Total number of steps: 4 DRESSING - UPPER BODY - STEP 1: Does the patient require help from a person or device, or need extra time when dressing above the monae [address]? Yes. DRESSING - UPPER BODY - STEP 2: Does the patient require the assistance of a helper? No. Patient only requires an assistive device, s uch as a button hook, velcro, or voltage inspector. OR s/he takes more than reasonable time as s/he dresses the upper body. OR there is a concern for safety when s/he dresses the upper body DRESSING - UPPER BODY - SCORE: 6-BRI DRESSING - LOWER BODY: Elastic waist pants (three steps) Underwear (three steps) ARTICLES SCORE Total number of steps: 6 DRESSING - LOWER BODY - STEP 1: Does the patient require help from a person or device, or need extra time when dressing below the monae st? Yes. DRESSING - LOWER BODY - STEP 2: Does the patient require the assistance of a helper? Yes. DRESSING - LOWER BODY - STEP 3: Does the helper touch the patient while dressing? No. DRESSING - LOWER BODY - SCORE: 5-SUP TOILETING: TOILETING - STEP 1: Does the patient require the assistance of a person or device, or need extra time with toileting? Yes . TOILETING - STEP 2: Does the patient require the assistance of a helper? Yes. TOILETING - STEP 3: How much assistance does the patient require from the helper? Only supervision TOILETING - SCORE: 5-SUP BLADDER MANAGEMENT: BLADDER MANAGEMENT - STEP 1: Does the patient control the bladder completely and intentionally without equipment or devices or med ications, and is always continent? No. BLADDER MANAGEMENT - STEP 2: Does the patient require the assistance of a helper? No, patient requires and independently uses an a ssistive device, such as a urinal, bedpan, bedside commode, catheter, absorbent pad, or collecting de vice BLADDER MANAGEMENT - SCORE: 6-BRI BLADDER MANAGEMENT - FREQUENCY OF ACCIDENTS: BLADDER MANAGEMENT(FA) - STEP 1: How many accidents has the patient had during the current shift? 0 BOWEL MANAGEMENT: Activity did not occur on this shift BOWEL MANAGEMENT - SCORE: 7-IND BOWEL MANAGEMENT - FREQUENCY OF ACCIDENTS: BOWEL MANAGEMENT(FA) - STEP 1: How many accidents has the patient had during the current shift? 0 TRANSFERS: BED, CHAIR, WHEELCHAIR: TRANSFERS: BED, CHAIR, WHEELCHAIR - STEP 1: Does the patient require assitance of a person or device, or need extra time with bed, chair, or whee lchair transfers? Yes. TRANSFERS: BED, CHAIR, WHEELCHAIR - STEP 2: Does the patient require the assistance of a helper? Yes. TRANSFERS: BED, CHAIR, WHEELCHAIR - STEP 3: How much assistance does the patient require from the helper? Only supervision TRANSFERS: BED, CHAIR, WHEELCHAIR - SCORE: 5-SUP TRANSFERS: TOILET: TRANSFERS: TOILET - STEP 1: Does the patient require the assistance of a person or device, or need extra time with toilet transfe rs? Yes. TRANSFERS: TOILET - STEP 2: Does the patient require the assistance of a helper? Yes. TRANSFERS: TOILET - STEP 3: How much assistance does the patient require from the helper? Patient performs half or more of the tr ansferring tasks TRANSFERS: TOILET - STEP 4: Does the patient need only incidental help such as contact guard or steadying during toilet transfer? Yes. TRANSFERS: TOILET - SCORE: 4-MIN TRANSFERS: SHOWER: Activity did not occur on this shift TRANSFERS: SHOWER - SCORE: 0-UNK TRANSFERS: TUB: Activity did not occur on this shift TRANSFERS: TUB - SCORE: 0-UNK LOCOMOTION: WALK: Activity did not occur on this shift LOCOMOTION: WALK - SCORE: 0-UNK LOCOMOTION: WHEELCHAIR: LOCOMOTION: WHEELCHAIR - STEP 1: Does the patient need help to go 150 feet in a wheelchair? Yes. LOCOMOTION: WHEELCHAIR - STEP 2: How much assistance does the patient need from the helper? Only supervision, cuing, or coaxing LOCOMOTION: WHEELCHAIR - SCORE: 5-SUP COMPREHENSION: COMPREHENSION: TYPE: Both COMPREHENSION - STEP 1: Does the patient require help from a person or device, or need extra time to understand complex and a bstract ideas (such as current events, finances, discharge planning, medical issues, relationships, e tc)? No. COMPREHENSION - STEP 2: Does the patient need extra time, require an assistive device (such as glasses for visual comprehensi on or a hearing aid for auditory comprehension) or does s/he have mild difficulty understanding compl ex and abstract information? Yes. COMPREHENSION - SCORE: 6-BRI EXPRESSION EXPRESSION: TYPE: Both EXPRESSION - STEP 1: Does the patient require help from a person or device, or need extra time expressing complex and abst ract ideas (such as current events, finances, discharge planning, medical issues, relationships, etc) ? No. EXPRESSION - STEP 2: Does the patient need extra time, require an assistive device (such as augmentive communication syste m or a communication board), OR does s/he have mild difficulty expressing complex and abstract ideas (including mild dysarthria or mild word-find problems)? Yes. EXPRESSION - SCORE: 6-BRI SOCIAL INTERACTION: SOCIAL INTERACTION - STEP 1: Does the patient require a helper to interact with others in social and therapeutic situations? No. SOCIAL INTERACTION - STEP 2: Does the patient need extra time in social situations, OR does s/he interact with staff, other patien ts, and family members ONLY in structured environments, OR does s/he require medication for social in teraction? Yes, patient needs extra time SOCIAL INTERACTION - SCORE: 6-BRI PROBLEM SOLVING: PROBLEM SOLVING - STEP 1: Does the patient need help from a person or device, or need extra time to solve complex problems such as managing a checking account or confronting interpersonal problems? No. PROBLEM SOLVING - STEP 2: Does the patient require extra time to make decisions or solve problems, OR does s/he have slight dif ficulty reading, initiating, or self-correcting in unfamiliar situations? Yes, patient needs extra ti me. PROBLEM SOLVING - SCORE: 6-BRI MEMORY: MEMORY - STEP 1: Does the patient need help from a person or device, or need extra time to remember frequently encount ered people, daily routines, and executing requests? No. MEMORY - STEP 2: Does the patient have slight difficulty recognizing frequently encountered people, daily routines, or executing requests without the need for repetition or using self-initiated or environmental cues to remember? Yes. MEMORY - SCORE: 6-BRI SIGNATURE PANEL: The following modified sections: Eating - Score, Grooming - Score, Bathing - Score, Dressing - Upper Body - Score, Dressing - Lower Body - Score, Toileting - Score, Bladder Management - Score, Bowel Man agement - Score, Transfers: Bed, Chair, Wheelchair - Score, Transfers: Toilet - Score, Transfers: Ivon wer - Score, Transfers: Tub - Score, Locomotion: Walk - Score, Locomotion: Wheelchair - Score, Compre hension - Score, Expression - Score, Social Interaction - Score, Problem Solving - Score, Memory - Sc ore were [electronically] signed by Kylie Toussaint C.N.A. on WedOct 25 2018 11:20:44 GMT-0600 (Cent[place] Standard Time)
--- NOTE | 2018-10-25 14:44 | FAST ---
ENCOUNTER DATE AND TIME: 10/25/2018 08:00 (ADVISOR CONSULTANT) NAME TENA ESTRADA DATE OF : 1960 DATE OF ADMISSION: 10/21/2018 22:32 (ADVISOR CONSULTANT) PHONE: AGE: 57 N# [id number] GENDER: Male ENCOUNTER PHYSICIAN: Dr. Jesus Chandler M.D. ADMISSION DIAGNOSIS: - Debility 16 - Debility (16) SMALL BOWEL OBSTRUCTION. EATING: Activity did not occur on this shift EATING - SCORE: 0-UNK GROOMING: Activity did not occur on this shift GROOMING - SCORE: 0-UNK BATHING: Activity did not occur on this shift BATHING - SCORE: 0-UNK DRESSING - UPPER BODY: Activity did not occur on this shift Patient is not dressing in public clothing ARTICLES SCORE Total number of steps: 0 DRESSING - UPPER BODY - SCORE: 0-UNK DRESSING - LOWER BODY: Activity did not occur on this shift Patient is not dressing in public clothing ARTICLES SCORE Total number of steps: 0 DRESSING - LOWER BODY - SCORE: 0-UNK TOILETING: Activity did not occur on this shift TOILETING - SCORE: 0-UNK BLADDER MANAGEMENT: Activity did not occur on this shift BLADDER MANAGEMENT - SCORE: 7-IND BOWEL MANAGEMENT: Activity did not occur on this shift BOWEL MANAGEMENT - SCORE: 7-IND TRANSFERS: BED, CHAIR, WHEELCHAIR: TRANSFERS: BED, CHAIR, WHEELCHAIR - STEP 1: Does the patient require assitance of a person or device, or need extra time with bed, chair, or whee lchair transfers? Yes. TRANSFERS: BED, CHAIR, WHEELCHAIR - STEP 2: Does the patient require the assistance of a helper? Yes. TRANSFERS: BED, CHAIR, WHEELCHAIR - STEP 3: How much assistance does the patient require from the helper? Only supervision TRANSFERS: BED, CHAIR, WHEELCHAIR - SCORE: 5-SUP TRANSFERS: TOILET: Activity did not occur on this shift TRANSFERS: TOILET - SCORE: 0-UNK TRANSFERS: SHOWER: Activity did not occur on this shift TRANSFERS: SHOWER - SCORE: 0-UNK TRANSFERS: TUB: Activity did not occur on this shift TRANSFERS: TUB - SCORE: 0-UNK LOCOMOTION: WALK: LOCOMOTION: WALK - STEP 1: Does the patient need help from a person or device, or need extra time to walk 150 feet? Yes. LOCOMOTION: WALK - STEP 2: How much assistance does the patient require to walk a minimum of 150 feet? Only supervision, cuing, or coaxing LOCOMOTION: WALK - SCORE: 5-SUP LOCOMOTION: WHEELCHAIR: Activity did not occur on this shift LOCOMOTION: WHEELCHAIR - SCORE: 0-UNK LOCOMOTION: STAIRS: Activity did not occur on this shift LOCOMOTION: STAIRS - SCORE: 0-UNK COMPREHENSION: COMPREHENSION - SCORE: 0-UNK EXPRESSION EXPRESSION - SCORE: 0-UNK SOCIAL INTERACTION: SOCIAL INTERACTION - SCORE: 0-UNK PROBLEM SOLVING: PROBLEM SOLVING - SCORE: 0-UNK MEMORY: MEMORY - SCORE: 0-UNK SIGNATURE PANEL: The following modified sections: Transfers: Bed, Chair, Wheelchair - Score, Transfers: Toilet - Score , Locomotion: Walk - Score, Locomotion: Wheelchair - Score, Locomotion: Stairs - Score were [electron stacey] signed by Ez Aguirre PT on WedOct 25 2018 14:43:10 GMT-0600 (Central Standard Time)
--- NOTE | 2018-10-25 14:56 | FAST ---
ENCOUNTER DATE AND TIME: 10/24/2018 08:00 (COMMISSIONER CONSERVATION OF RESOURCES) NAME TENA ESTRADA DATE OF : 1960 DATE OF ADMISSION: 10/21/2018 22:32 (COMMISSIONER CONSERVATION OF RESOURCES) PHONE: AGE: 57 N# [id number] GENDER: Male ENCOUNTER PHYSICIAN: Dr. Jesus Chandler M.D. ADMISSION DIAGNOSIS: - Debility 16 - Debility (16) SMALL BOWEL OBSTRUCTION. EATING: Activity did not occur on this shift EATING - SCORE: 0-UNK GROOMING: Activity did not occur on this shift GROOMING - SCORE: 0-UNK BATHING: Activity did not occur on this shift BATHING - SCORE: 0-UNK DRESSING - UPPER BODY: Activity did not occur on this shift Patient is not dressing in public clothing ARTICLES SCORE Total number of steps: 0 DRESSING - UPPER BODY - SCORE: 0-UNK DRESSING - LOWER BODY: Activity did not occur on this shift Patient is not dressing in public clothing ARTICLES SCORE Total number of steps: 0 DRESSING - LOWER BODY - SCORE: 0-UNK TOILETING: Activity did not occur on this shift TOILETING - SCORE: 0-UNK BLADDER MANAGEMENT: Activity did not occur on this shift BLADDER MANAGEMENT - SCORE: 7-IND BOWEL MANAGEMENT: Activity did not occur on this shift BOWEL MANAGEMENT - SCORE: 7-IND TRANSFERS: BED, CHAIR, WHEELCHAIR: TRANSFERS: BED, CHAIR, WHEELCHAIR - STEP 1: Does the patient require assitance of a person or device, or need extra time with bed, chair, or whee lchair transfers? Yes. TRANSFERS: BED, CHAIR, WHEELCHAIR - STEP 2: Does the patient require the assistance of a helper? Yes. TRANSFERS: BED, CHAIR, WHEELCHAIR - STEP 3: How much assistance does the patient require from the helper? Only supervision TRANSFERS: BED, CHAIR, WHEELCHAIR - SCORE: 5-SUP TRANSFERS: TOILET: Activity did not occur on this shift TRANSFERS: TOILET - SCORE: 0-UNK TRANSFERS: SHOWER: Activity did not occur on this shift TRANSFERS: SHOWER - SCORE: 0-UNK TRANSFERS: TUB: Activity did not occur on this shift TRANSFERS: TUB - SCORE: 0-UNK LOCOMOTION: WALK: LOCOMOTION: WALK - STEP 1: Does the patient need help from a person or device, or need extra time to walk 150 feet? Yes. LOCOMOTION: WALK - STEP 2: How much assistance does the patient require to walk a minimum of 150 feet? Only supervision, cuing, or coaxing LOCOMOTION: WALK - SCORE: 5-SUP LOCOMOTION: WHEELCHAIR: LOCOMOTION: WHEELCHAIR - STEP 1: Does the patient need help to go 150 feet in a wheelchair? No. LOCOMOTION: WHEELCHAIR - SCORE: 6-BRI LOCOMOTION: STAIRS: Activity did not occur on this shift LOCOMOTION: STAIRS - SCORE: 0-UNK COMPREHENSION: COMPREHENSION - SCORE: 0-UNK EXPRESSION EXPRESSION - SCORE: 0-UNK SOCIAL INTERACTION: SOCIAL INTERACTION - SCORE: 0-UNK PROBLEM SOLVING: PROBLEM SOLVING - SCORE: 0-UNK MEMORY: MEMORY - SCORE: 0-UNK SIGNATURE PANEL: The following modified sections: Transfers: Bed, Chair, Wheelchair - Score, Transfers: Toilet - Score , Locomotion: Walk - Score, Locomotion: Wheelchair - Score, Locomotion: Stairs - Score were [electron icallsyed] signed by Lamberto Corral PTA on WedOct 25 2018 14:55:32 GMT-0600 (Central Standard Time)
[2018-10-25] MEDS: RIVAROXABAN 20 MG TABLET PO SCH (17:08)
--- NOTE | 2018-10-26 01:17 | PN ---
Date of Progress Note: 10/25/2018 Subjective: The patient was seen this morning for followup, no new complaints or problems reported b y the patient except had some nausea last night and required extra dose of Phenergan. He is tolerati ng diet very well, complaining of some leg swelling and hand swelling and requesting his diuretic med ication to be restarted. Objective: Vital Signs: Reviewed. HEENT: Unremarkable. Lungs: Clear to auscultation. Heart: Sounds normal. Abdomen: Soft. Bowel sounds normal. No guarding, rigidity, tenderness, or distention. Extremities: Trace leg edema and hand edema. Impression: 1.Edema. 2.Paroxysmal atrial fibrillation. 3.Hypertension. 4.Anemia. 5.Debility. 6.Generalized weakness. Plan: We will continue current medications and continue rehab therapy per Dr. Chandler. We will go ahead and start spironolactone 25 mg p.o. daily. I will see him tomorrow for followup. The patient and his reports that they were told to gets donavon removed in about 3 weeks and 3 weeks will be due this week on . JORDAN/MODL Voice ID: [id number] Report ID: [id number]
[2018-10-26] MEDS: PROMETHAZINE 25 MG/ML VIAL IV PRN ×4 (05:00→23:02)
[2018-10-26] MEDS: SOTALOL HCL 80 MG TAB PO SCH ×2 (05:02→16:55)
[2018-10-26] MEDS: PANTOPRAZOLE 40MG TABLET PO SCH (05:04)
[2018-10-26] MEDS: PROMOD 30 ML DOSE PO SCH ×2 (08:00→19:26)
[2018-10-26] MEDS: POLYETHYL GLY 3350 17 GM/DOSE PO SCH (08:00)
[2018-10-26] MEDS: SPIRONOLACTONE 25 MG TABLET PO SCH ×3 (08:12→19:26)
[2018-10-26] MEDS: DULOXETINE 30 MG CAP PO SCH (08:13)
[2018-10-26] MEDS: FOLIC ACID 1 MG TABLET PO SCH (08:13)
[2018-10-26] MEDS: MULTIVITAMIN TAB PO SCH (08:13)
[2018-10-26] MEDS: predniSONE 20 MG TAB PO SCH ×2 (08:13→19:26)
[2018-10-26] MEDS: FE SULF/FA/VIT B COMP & C TAB PO SCH (08:13)
[2018-10-26] MEDS: FERROUS SULFATE 325 MG TAB PO SCH (08:13)
[2018-10-26] MEDS: HYDROCODONE/APAP 10/325 TAB PO PRN ×3 (08:13→19:25)
[2018-10-26] MEDS: DOCUSATE NA/SENNA CONC 1 TAB PO SCH ×2 (08:16→19:26)
--- NOTE | 2018-10-26 15:44 | FAST ---
ENCOUNTER DATE AND TIME: 10/26/2018 08:00 (DIVISION SERGEANT) NAME TENA ESTRADA DATE OF : 1960 DATE OF ADMISSION: 10/21/2018 22:32 (DIVISION SERGEANT) PHONE: AGE: 57 N# [id number] GENDER: Male ENCOUNTER PHYSICIAN: Dr. Jesus Chandler M.D. ADMISSION DIAGNOSIS: - Debility 16 - Debility (16) SMALL BOWEL OBSTRUCTION. EATING: Activity did not occur on this shift EATING - SCORE: 0-UNK GROOMING: Activity did not occur on this shift GROOMING - SCORE: 0-UNK BATHING: Activity did not occur on this shift BATHING - SCORE: 0-UNK DRESSING - UPPER BODY: Activity did not occur on this shift Patient is not dressing in public clothing ARTICLES SCORE Total number of steps: 0 DRESSING - UPPER BODY - SCORE: 0-UNK DRESSING - LOWER BODY: Activity did not occur on this shift Patient is not dressing in public clothing ARTICLES SCORE Total number of steps: 0 DRESSING - LOWER BODY - SCORE: 0-UNK TOILETING: Activity did not occur on this shift TOILETING - SCORE: 0-UNK BLADDER MANAGEMENT: Activity did not occur on this shift BLADDER MANAGEMENT - SCORE: 7-IND BOWEL MANAGEMENT: Activity did not occur on this shift BOWEL MANAGEMENT - SCORE: 7-IND TRANSFERS: BED, CHAIR, WHEELCHAIR: TRANSFERS: BED, CHAIR, WHEELCHAIR - STEP 1: Does the patient require assitance of a person or device, or need extra time with bed, chair, or whee lchair transfers? Yes. TRANSFERS: BED, CHAIR, WHEELCHAIR - STEP 2: Does the patient require the assistance of a helper? Yes. TRANSFERS: BED, CHAIR, WHEELCHAIR - STEP 3: How much assistance does the patient require from the helper? Only supervision TRANSFERS: BED, CHAIR, WHEELCHAIR - SCORE: 5-SUP TRANSFERS: TOILET: Activity did not occur on this shift TRANSFERS: TOILET - SCORE: 0-UNK TRANSFERS: SHOWER: Activity did not occur on this shift TRANSFERS: SHOWER - SCORE: 0-UNK TRANSFERS: TUB: Activity did not occur on this shift TRANSFERS: TUB - SCORE: 0-UNK LOCOMOTION: WALK: LOCOMOTION: WALK - STEP 1: Does the patient need help from a person or device, or need extra time to walk 150 feet? Yes. LOCOMOTION: WALK - STEP 2: How much assistance does the patient require to walk a minimum of 150 feet? Only supervision, cuing, or coaxing LOCOMOTION: WALK - SCORE: 5-SUP LOCOMOTION: WHEELCHAIR: LOCOMOTION: WHEELCHAIR - STEP 1: Does the patient need help to go 150 feet in a wheelchair? No. LOCOMOTION: WHEELCHAIR - SCORE: 6-BRI LOCOMOTION: STAIRS: Activity did not occur on this shift LOCOMOTION: STAIRS - SCORE: 0-UNK COMPREHENSION: COMPREHENSION - SCORE: 0-UNK EXPRESSION EXPRESSION - SCORE: 0-UNK SOCIAL INTERACTION: SOCIAL INTERACTION - SCORE: 0-UNK PROBLEM SOLVING: PROBLEM SOLVING - SCORE: 0-UNK MEMORY: MEMORY - SCORE: 0-UNK SIGNATURE PANEL: The following modified sections: Transfers: Bed, Chair, Wheelchair - Score, Transfers: Toilet - Score , Locomotion: Walk - Score, Locomotion: Wheelchair - Score, Locomotion: Stairs - Score were [electron ically] signed by Ez Aguirre PT on WedOct 26 2018 15:43:35 GMT-0600 (Central Standard Time)
[2018-10-26] MEDS: RIVAROXABAN 20 MG TABLET PO SCH (16:54)
--- NOTE | 2018-10-26 18:08 | R.PN ---
ENCOUNTER DATE AND TIME: 10/26/2018 18:05 (HISTORIOGRAPHER) NAME TENA ESTRADA DATE OF : 1960 DATE OF ADMISSION: 10/21/2018 22:32 (HISTORIOGRAPHER) SMALL BOWEL OBSTRUCTIONCHIEF COMPLAINT: Small bowel obstruction. Status post abdominal surgery SUBJECTIVE: Pt denied any Shortness of Breath. Pt denied any depression. Ambulated 1000' with standby assistance using a rolling walker. Posterior propelled wheelchair 500' w ith bilateral lower extremities. VITAL SIGNS Temperature: 97.2 F SBP/DBP: 118/74 Pulse: 71 Resp: 14 MEDICATION ALLERGIES: Demerol REMICADE ENVIRONMENTAL ALLERGIES: None Known - Substance Allergies None Known - Other Allergies LATEX NURSING: - Shower allowing shower ACTIVITIES OOB only with supervision THERAPIES: - Occupational Therapy Evaluate and Treat. - Physical Therapy Evaluate and Treat. PHYSICAL EXAM - Gen Alert and awake Lying in bed No apparent distress Oriented to: person, time, and place - Skin Healing surgical wound in the abdomen. - Eyes No abnormalities - ENMT No abnormalities - Neck No abnormalities - CVS RRR - Chest Incision is healing with good hemostasis. - Resp No wheezing - Abd +bowel sounds - GI Obese Deferred - No abnormalities - Ext Mild bilateral lower extremity edema. - MSK 4+/5 weakness in both lower extremities. - Neuro 4/5 strength bilaterally upper and lower extremities. - Psych No abnormalities ASSESSMENT: Pt. is a 57 yo Right-handed white male.On 10/05/2018 he was admitted to [facility] with diagno sis SMALL BOWEL OBSTRUCTION.His impairment category is Debility 16 - Debility (16).Pre-morbidly, Pt. was independent/mod-I in Communication, Social Cognition, Self-Care, Locomotion, Sphincter Control, and Transfers Control; and he had good Sphincter Control.Currently, he has deficits of Balance, Self- Care, Locomotion, Endurance, Safety Awareness, and Transfers Control.Pt. is now referred to [facility] for acute in-patient rehabilitation in order to maximize patient's functiona l independence in activities of daily living, strength, ROM, and mobility.- Rehab Goal Patient has realistic goal of being discharged at assistance level 6-Erasmo to reside at Home with Fam james/Relatives. MDM/PLAN: - Physical Therapy Gait dysfunction - to improve, our physical therapists will perform initial evaluation of pt's statu s upon admission and devise an individualized program for Gait Training, and Wheel Chair mobility Inability to transfer - to improve, our physical therapists will perform initial evaluation of pt's status upon admission and devise an individualized program for Bed mobility Need for home safety evaluation - to improve, our physical therapists will perform initial evaluatio n of pt's status upon admission and devise an individualized program for Home Evaluation Need in caregiver upon discharge - to improve, our physical therapists will perform initial evaluati on of pt's status upon admission and devise an individualized program for Caregiver Training Edema - to improve, our physical therapists will perform initial evaluation of pt's status upon admi ssion and devise an individualized program for Elevation Training, and Lymphedema Therapy New precaution - to improve, our physical therapists will perform initial evaluation of pt's status upon admission and devise an individualized program for Patient precaution education Having wound - to improve, our physical therapists will perform initial evaluation of pt's status up on admission and devise an individualized program for Wound Care Poor balance - to improve, our physical therapists will perform initial evaluation of pt's status up on admission and devise an individualized program for Balance Training Poor endurance - to improve, our physical therapists will perform initial evaluation of pt's status upon admission and devise an individualized program for Endurance Training Weakness - to improve, our physical therapists will perform initial evaluation of pt's status upon a dmission and devise an individualized program for Aquatic Therapy, Neuromuscular Reeducation, and Str engthening Achieving independence - to improve, our physical therapists will perform initial evaluation of pt's status upon admission and devise an individualized program for Community Reintegration Activities - Occupational Therapy ADL deficits - to improve, our occupation therapists will perform initial evaluation of pt's status upon admission and devise an individualized program for Bathing, Bed mobility, Community Reintegratio n, Cooking, Dressing, Eating, Fine Motor Skills, Grooming, Homemaking, Kitchen Mobility, Laundry, Pat ient Education, Safety Awareness, Splinting - Positioning, Transfers(Toilet, Tub, Shower), and Wheel Chair Management Need for healthcare interpreter - to improve, our occupation therapists will perform initial evaluation of pt's status upon admission and devise an individualized program for Caregiver Training Weakness - to improve, our occupation therapists will perform initial evaluation of pt's status upon admission and devise an individualized program for Aquatic Therapy, Balance, Endurance, UE ROM, and UE strengthening - Diet Type Continue BARIATRIC FULLS - Diet - Liquid Texture Continue Regular - Tube Feed Continue N/A - Diet - Solid Texture Continue Regular - Shower allowing shower FUNCTIONAL STATUS: UPDATED AT WEEKLY TEAM CONFERENCE - Bladder Same accident frequency: 7-Ind - No accidents in the past 7 days - Bowel Same accident frequency: 7-Ind - No accidents in the past 7 days - Walking Same score based on distance walked: 3(>=150ft) - Wheelchair Same score based on distance traveled: 0(N/A) FUNCTIONAL STATUS: - Self-Care A. Eating sup B. Grooming sup C. Bathing sup D. Dressing - Upper sup E. Dressing - Lower sup F. Toileting Dep - Sphincter Control G: Bladder control Dep H: Bowel control Ind - Transfers Control I. Bed/Chair/Wheelchair sup J. Toilet Lila K. Tub/Shower Ind - Locomotion L. Walk/Wheelchair (C) Lila L. Walk/Wheelchair (W) Lila M. Stairs ADNO - Communication N. Comprehension (B) Ind O. Expression (B) Ind - Social Cognition P. Social Interaction Ind Q. Problem Solving Ind R. Memory Ind - Endurance Fair - Balance Fair - Safety Awareness Fair CURRENT FUNC. DEFICITS: Balance, Self-Care, Locomotion, Endurance, Safety Awareness, and Transfers Control SIGNATURE PANEL: (HISTORIOGRAPHER)
[2018-10-26] MEDS ORDERED: PROMETHAZINE 25 MG/ML VIAL IV ONE (19:02)
--- NOTE | 2018-10-27 02:07 | FAST ---
SHIFT START DATE/TIME: 10/26/2018 19:00 (NEWS VIDEO EDITOR) SHIFT END DATE/TIME: 10/27/2018 07:00 (NEWS VIDEO EDITOR) NAME TENA ESTRADA DATE OF : 1960 DATE OF ADMISSION: 10/21/2018 22:32 (NEWS VIDEO EDITOR) PHONE: AGE: 57 SSN# [id number] GENDER: Male ENCOUNTER PHYSICIAN: Dr. Jesus Chandler M.D. ADMISSION DIAGNOSIS: - Debility 16 - Debility (16) SMALL BOWEL OBSTRUCTION. EATING: Activity did not occur on this shift EATING - SCORE: 0-UNK GROOMING: Activity did not occur on this shift GROOMING - SCORE: 0-UNK BATHING: Activity did not occur on this shift BATHING - SCORE: 0-UNK DRESSING - UPPER BODY: Patient is not dressing in public clothing ARTICLES SCORE Total number of steps: 0 DRESSING - UPPER BODY - SCORE: 0-UNK DRESSING - LOWER BODY: Patient is not dressing in public clothing ARTICLES SCORE Total number of steps: 0 DRESSING - LOWER BODY - SCORE: 0-UNK TOILETING: TOILETING - STEP 1: Does the patient require the assistance of a person or device, or need extra time with toileting? Yes . TOILETING - STEP 2: Does the patient require the assistance of a helper? Yes. TOILETING - STEP 3: How much assistance does the patient require from the helper? Only supervision TOILETING - SCORE: 5-SUP BLADDER MANAGEMENT: BLADDER MANAGEMENT - STEP 1: Does the patient control the bladder completely and intentionally without equipment or devices or med ications, and is always continent? No. BLADDER MANAGEMENT - STEP 2: Does the patient require the assistance of a helper? Yes. BLADDER MANAGEMENT - STEP 3: How much assistance does the patient require from the helper? Only supervision, stand-by, cuing, or c oaxing BLADDER MANAGEMENT - SCORE: 5-SUP BOWEL MANAGEMENT: Activity did not occur on this shift BOWEL MANAGEMENT - SCORE: 7-IND TRANSFERS: BED, CHAIR, WHEELCHAIR: Activity did not occur on this shift TRANSFERS: BED, CHAIR, WHEELCHAIR - SCORE: 0-UNK TRANSFERS: TOILET: Activity did not occur on this shift TRANSFERS: TOILET - SCORE: 0-UNK TRANSFERS: SHOWER: Activity did not occur on this shift TRANSFERS: SHOWER - SCORE: 0-UNK TRANSFERS: TUB: Activity did not occur on this shift TRANSFERS: TUB - SCORE: 0-UNK LOCOMOTION: WALK: Activity did not occur on this shift LOCOMOTION: WALK - SCORE: 0-UNK LOCOMOTION: WHEELCHAIR: Activity did not occur on this shift LOCOMOTION: WHEELCHAIR - SCORE: 0-UNK COMPREHENSION: COMPREHENSION: TYPE: Both COMPREHENSION - STEP 1: Does the patient require help from a person or device, or need extra time to understand complex and a bstract ideas (such as current events, finances, discharge planning, medical issues, relationships, e tc)? No. COMPREHENSION - STEP 2: Does the patient need extra time, require an assistive device (such as glasses for visual comprehensi on or a hearing aid for auditory comprehension) or does s/he have mild difficulty understanding compl ex and abstract information? Yes. COMPREHENSION - SCORE: 6-BRI EXPRESSION EXPRESSION: TYPE: Both EXPRESSION - STEP 1: Does the patient require help from a person or device, or need extra time expressing complex and abst ract ideas (such as current events, finances, discharge planning, medical issues, relationships, etc) ? No. EXPRESSION - STEP 2: Does the patient need extra time, require an assistive device (such as augmentive communication syste m or a communication board), OR does s/he have mild difficulty expressing complex and abstract ideas (including mild dysarthria or mild word-find problems)? No. EXPRESSION - SCORE: 7-IND SOCIAL INTERACTION: SOCIAL INTERACTION - STEP 1: Does the patient require a helper to interact with others in social and therapeutic situations? No. SOCIAL INTERACTION - STEP 2: Does the patient need extra time in social situations, OR does s/he interact with staff, other patien ts, and family members ONLY in structured environments, OR does s/he require medication for social in teraction? No. SOCIAL INTERACTION - SCORE: 7-IND PROBLEM SOLVING: PROBLEM SOLVING - STEP 1: Does the patient need help from a person or device, or need extra time to solve complex problems such as managing a checking account or confronting interpersonal problems? No. PROBLEM SOLVING - STEP 2: Does the patient require extra time to make decisions or solve problems, OR does s/he have slight dif ficulty reading, initiating, or self-correcting in unfamiliar situations? No. PROBLEM SOLVING - SCORE: 7-IND MEMORY: MEMORY - STEP 1: Does the patient need help from a person or device, or need extra time to remember frequently encount ered people, daily routines, and executing requests? No. MEMORY - STEP 2: Does the patient have slight difficulty recognizing frequently encountered people, daily routines, or executing requests without the need for repetition or using self-initiated or environmental cues to remember? No. MEMORY - SCORE: 7-IND SIGNATURE PANEL: The following modified sections: Eating - Score, Grooming - Score, Dressing - Upper Body - Score, Rigoberto ssing - Lower Body - Score, Toileting - Score, Bladder Management - Score, Bowel Management - Score, Transfers: Bed, Chair, Wheelchair - Score, Transfers: Toilet - Score, Transfers: Shower - Score, Fraga sfers: Tub - Score, Locomotion: Walk - Score, Locomotion: Wheelchair - Score, Comprehension - Score, Expression - Score, Social Interaction - Score, Problem Solving - Score, Memory - Score were [electro nically] signed by Ciara Crane CNA on WedOct 27 2018 02:06:37 GMT-0600 (Central Standard Time)
[2018-10-27] MEDS: SOTALOL HCL 80 MG TAB PO SCH ×2 (05:07→17:03)
[2018-10-27] MEDS: PROMETHAZINE 25 MG/ML VIAL IV PRN ×4 (05:08→22:55)
[2018-10-27] MEDS: PANTOPRAZOLE 40MG TABLET PO SCH (06:18)
[2018-10-27 06:47] LABS: Absolute Lymphocytes (CBC) 1.7 K/uL (0.7-4.9); Absolute Monocytes 0.6 K/uL (0.1-1.3); Absolute Neutrophil 5.7 K/uL (1.8-8.0); Basophils % 0.2 % (0-1.3); Eosinophils % 0.3 % (0-4.4); Hematocrit 32.4 % (39.6-49.0); Lymphocytes % 21.5 % (15.3-44.8); MCV 94.7 fL (80-100); MPV 9.2 fL (7.6-11.3); Monocytes % 7.7 % (3.3-12.3); RBC Red Blood Cell Count 3.41 M/uL (4.33-5.43)
[2018-10-27 07:14] LABS: ALT/SGPT 27 U/L (12-78); AST/SGOT 7 U/L (15-37); Albumin 2.7 g/dL (3.4-5.0); Alkaline Phosphatase 90 U/L (45-117); BUN Blood Urea Nitrogen 19 mg/dL (7-18); Bicarbonate 31 mmol/L (21-32); Bilirubin Total 0.3 mg/dL (0.2-1.0); Glucose Level 171 mg/dL (74-106); Potassium 4.5 mmol/L (3.5-5.1); Protein, Total 5.6 g/dL (6.4-8.2); Sodium Level 143 mmol/L (136-145)
[2018-10-27 07:16] LABS: Albumin 2.7 g/dL (3.4-5.0); Prealbumin 25.5 mg/dL (20-40)
[2018-10-27] MEDS: SPIRONOLACTONE 25 MG TABLET PO SCH ×2 (07:57→19:46)
[2018-10-27] MEDS: FERROUS SULFATE 325 MG TAB PO SCH (07:57)
[2018-10-27] MEDS: DOCUSATE NA/SENNA CONC 1 TAB PO SCH ×2 (07:57→19:45)
[2018-10-27] MEDS: predniSONE 20 MG TAB PO SCH (07:57)
[2018-10-27] MEDS: FE SULF/FA/VIT B COMP & C TAB PO SCH (07:57)
[2018-10-27] MEDS: MULTIVITAMIN TAB PO SCH (07:57)
[2018-10-27] MEDS: DULOXETINE 30 MG CAP PO SCH (07:58)
[2018-10-27] MEDS: FOLIC ACID 1 MG TABLET PO SCH (07:58)
[2018-10-27] MEDS: HYDROCODONE/APAP 10/325 TAB PO PRN ×3 (07:58→22:55)
[2018-10-27] MEDS: POLYETHYL GLY 3350 17 GM/DOSE PO SCH (07:59)
[2018-10-27] MEDS: PROMOD 30 ML DOSE PO SCH ×2 (07:59→19:40)
[2018-10-27] MEDS: ONDANSETRON 4 MG (ODT) TAB PO PRN (09:29)
--- NOTE | 2018-10-27 10:59 | FAST ---
ENCOUNTER DATE AND TIME: 10/26/2018 08:00 (ORNAMENTAL RAIL INSTALLER) NAME TENA ESTRADA DATE OF : 1960 DATE OF ADMISSION: 10/21/2018 22:32 (ORNAMENTAL RAIL INSTALLER) PHONE: AGE: 57 N# [id number] GENDER: Male ENCOUNTER PHYSICIAN: Dr. Jesus Chandler M.D. ADMISSION DIAGNOSIS: - Debility 16 - Debility (16) SMALL BOWEL OBSTRUCTION. EATING: EATING - STEP 1: Does the patient require the assistance of a person or device, or need extra time when eating? No. EATING - SCORE: 7-IND GROOMING: Comb/brush hair Oral care Wash, rinse, and dry face Wash, rinse, and dry hands GROOMING - STEP 1: Does the patient require the assistance of a person or device, or need extra time when grooming? No. GROOMING - SCORE: 7-IND BATHING: Abdomen Buttocks Chest Left arm Left lower leg and foot Left upper leg Perineal area Right arm Right lower leg and foot Right upper leg BATHING - STEP 1: Does the patient require the assistance of a person or device, or need extra time when bathing? Yes. BATHING - STEP 2: Does the patient require the assistance of a helper? No. The patient only requires an assistive devic e such as a bath new, OR the patient takes more than reasonable time to bathe, OR there is a concern for safety such as regulating water temperature as the patient bathes. BATHING - SCORE: 6-BRI DRESSING - UPPER BODY: T-shirt/pullover shirt (four steps) ARTICLES SCORE Total number of steps: 4 DRESSING - UPPER BODY - STEP 1: Does the patient require help from a person or device, or need extra time when dressing above the [address]? No. DRESSING - UPPER BODY - SCORE: 7-IND DRESSING - LOWER BODY: Elastic waist pants (three steps) Sock - Left foot (one step) Sock - Right foot (one step) Tied or buckled shoe - Left foot (two steps) Tied or buckled shoe - Right foot (two steps) Underwear (three steps) ARTICLES SCORE Total number of steps: 12 DRESSING - LOWER BODY - STEP 1: Does the patient require help from a person or device, or need extra time when dressing below the mon[address]? Yes. DRESSING - LOWER BODY - STEP 2: Does the patient require the assistance of a helper? Yes. DRESSING - LOWER BODY - STEP 3: Does the helper touch the patient while dressing? Yes. DRESSING - LOWER BODY - STEP 4: How many of the total steps does the patient complete on his/her own? 10 DRESSING - LOWER BODY - SCORE: 4-MIN TOILETING: Activity did not occur on this shift TOILETING - SCORE: 0-UNK BLADDER MANAGEMENT: Activity did not occur on this shift BLADDER MANAGEMENT - SCORE: 7-IND BOWEL MANAGEMENT: Activity did not occur on this shift BOWEL MANAGEMENT - SCORE: 7-IND TRANSFERS: BED, CHAIR, WHEELCHAIR: Activity did not occur on this shift TRANSFERS: BED, CHAIR, WHEELCHAIR - SCORE: 0-UNK TRANSFERS: TOILET: Activity did not occur on this shift TRANSFERS: TOILET - SCORE: 0-UNK TRANSFERS: SHOWER: TRANSFERS: SHOWER - STEP 1: Does the patient require the assistance of a person or device, or need extra time with shower transfe rs? Yes. TRANSFERS: SHOWER - STEP 2: Does the patient require the assistance of a helper? No. The patient only uses an assistive device, t akes more than reasonable time, OR there is a concern for safety when s/he performs transfers. TRANSFERS: SHOWER - SCORE: 6-BRI TRANSFERS: TUB: Activity did not occur on this shift TRANSFERS: TUB - SCORE: 0-UNK LOCOMOTION: WALK: Activity did not occur on this shift LOCOMOTION: WALK - SCORE: 0-UNK LOCOMOTION: WHEELCHAIR: Activity did not occur on this shift LOCOMOTION: WHEELCHAIR - SCORE: 0-UNK LOCOMOTION: STAIRS: Activity did not occur on this shift LOCOMOTION: STAIRS - SCORE: 0-UNK COMPREHENSION: COMPREHENSION: TYPE: Both COMPREHENSION - STEP 1: Does the patient require help from a person or device, or need extra time to understand complex and a bstract ideas (such as current events, finances, discharge planning, medical issues, relationships, e tc)? No. COMPREHENSION - STEP 2: Does the patient need extra time, require an assistive device (such as glasses for visual comprehensi on or a hearing aid for auditory comprehension) or does s/he have mild difficulty understanding compl ex and abstract information? No. COMPREHENSION - SCORE: 7-IND EXPRESSION EXPRESSION: TYPE: Both EXPRESSION - STEP 1: Does the patient require help from a person or device, or need extra time expressing complex and abst ract ideas (such as current events, finances, discharge planning, medical issues, relationships, etc) ? No. EXPRESSION - STEP 2: Does the patient need extra time, require an assistive device (such as augmentive communication syste m or a communication board), OR does s/he have mild difficulty expressing complex and abstract ideas (including mild dysarthria or mild word-find problems)? No. EXPRESSION - SCORE: 7-IND SOCIAL INTERACTION: SOCIAL INTERACTION - STEP 1: Does the patient require a helper to interact with others in social and therapeutic situations? No. SOCIAL INTERACTION - STEP 2: Does the patient need extra time in social situations, OR does s/he interact with staff, other patien ts, and family members ONLY in structured environments, OR does s/he require medication for social in teraction? Yes, patient requires medication for social interaction SOCIAL INTERACTION - SCORE: 6-BRI PROBLEM SOLVING: PROBLEM SOLVING - STEP 1: Does the patient need help from a person or device, or need extra time to solve complex problems such as managing a checking account or confronting interpersonal problems? No. PROBLEM SOLVING - STEP 2: Does the patient require extra time to make decisions or solve problems, OR does s/he have slight dif ficulty reading, initiating, or self-correcting in unfamiliar situations? No. PROBLEM SOLVING - SCORE: 7-IND MEMORY: MEMORY - STEP 1: Does the patient need help from a person or device, or need extra time to remember frequently encount ered people, daily routines, and executing requests? No. MEMORY - STEP 2: Does the patient have slight difficulty recognizing frequently encountered people, daily routines, or executing requests without the need for repetition or using self-initiated or environmental cues to remember? No. MEMORY - SCORE: 7-IND SIGNATURE PANEL: The following modified sections: Eating - Score, Grooming - Score, Bathing - Score, Dressing - Upper Body - Score, Dressing - Lower Body - Score, Toileting - Score, Transfers: Bed, Chair, Wheelchair - S core, Transfers: Toilet - Score, Transfers: Tub - Score, Transfers: Shower - Score, Comprehension - S core, Expression - Score, Social Interaction - Score, Problem Solving - Score, Memory - Score were [e lectronically] signed by Vivian Small OT on WedOct 27 2018 10:59:38 GMT-0600 (Central Standard T toan)
--- NOTE | 2018-10-27 15:20 | FAST ---
SHIFT START DATE/TIME: 10/27/2018 07:00 (ASSISTANT TO THE CEO) SHIFT END DATE/TIME: 10/27/2018 19:00 (ASSISTANT TO THE CEO) NAME TENA ESTRADA DATE OF : 1960 DATE OF ADMISSION: 10/21/2018 22:32 (ASSISTANT TO THE CEO) PHONE: AGE: 57 SSN# [id number] GENDER: Male ENCOUNTER PHYSICIAN: Dr. Jesus Chandler M.D. ADMISSION DIAGNOSIS: - Debility 16 - Debility (16) SMALL BOWEL OBSTRUCTION. EATING: EATING - STEP 1: Does the patient require the assistance of a person or device, or need extra time when eating? Yes. EATING - STEP 2: Does the patient require the assistance of a helper? No, patient only requires an assistive device, O R s/he takes more than reasonable time to eat, OR there is a safety concern, OR s/he requires modifie d food consistency EATING - SCORE: 6-BRI GROOMING: Comb/brush hair Oral care GROOMING - STEP 1: Does the patient require the assistance of a person or device, or need extra time when grooming? Yes. GROOMING - STEP 2: Does the patient require the assistance of a helper? No. The patient only requires an assistive devic e, OR takes more than reasonable time to groom, OR there is a concern for safety as the patient groom s GROOMING - SCORE: 6-BRI BATHING: Activity did not occur on this shift BATHING - SCORE: 0-UNK DRESSING - UPPER BODY: Activity did not occur on this shift ARTICLES SCORE Total number of steps: 0 DRESSING - UPPER BODY - SCORE: 0-UNK DRESSING - LOWER BODY: Activity did not occur on this shift ARTICLES SCORE Total number of steps: 0 DRESSING - LOWER BODY - SCORE: 0-UNK TOILETING: TOILETING - STEP 1: Does the patient require the assistance of a person or device, or need extra time with toileting? Yes . TOILETING - STEP 2: Does the patient require the assistance of a helper? Yes. TOILETING - STEP 3: How much assistance does the patient require from the helper? Only supervision TOILETING - SCORE: 5-SUP BLADDER MANAGEMENT: BLADDER MANAGEMENT - STEP 1: Does the patient control the bladder completely and intentionally without equipment or devices or med ications, and is always continent? No. BLADDER MANAGEMENT - STEP 2: Does the patient require the assistance of a helper? No, patient requires and independently uses an a ssistive device, such as a urinal, bedpan, bedside commode, catheter, absorbent pad, or collecting de vice BLADDER MANAGEMENT - SCORE: 6-BRI BOWEL MANAGEMENT: Activity did not occur on this shift BOWEL MANAGEMENT - SCORE: 7-IND TRANSFERS: BED, CHAIR, WHEELCHAIR: TRANSFERS: BED, CHAIR, WHEELCHAIR - STEP 1: Does the patient require assitance of a person or device, or need extra time with bed, chair, or whee lchair transfers? Yes. TRANSFERS: BED, CHAIR, WHEELCHAIR - STEP 2: Does the patient require the assistance of a helper? Yes. TRANSFERS: BED, CHAIR, WHEELCHAIR - STEP 3: How much assistance does the patient require from the helper? Steadying/guiding assistance TRANSFERS: BED, CHAIR, WHEELCHAIR - SCORE: 4-MIN TRANSFERS: TOILET: TRANSFERS: TOILET - STEP 1: Does the patient require the assistance of a person or device, or need extra time with toilet transfe rs? Yes. TRANSFERS: TOILET - STEP 2: Does the patient require the assistance of a helper? Yes. TRANSFERS: TOILET - STEP 3: How much assistance does the patient require from the helper? Only supervision, cuing, coaxing, OR he lp to set out transfer equipment or to lock brakes and/or lift foot rests TRANSFERS: TOILET - SCORE: 5-SUP TRANSFERS: SHOWER: Activity did not occur on this shift TRANSFERS: SHOWER - SCORE: 0-UNK TRANSFERS: TUB: Activity did not occur on this shift TRANSFERS: TUB - SCORE: 0-UNK LOCOMOTION: WALK: Activity did not occur on this shift LOCOMOTION: WALK - SCORE: 0-UNK LOCOMOTION: WHEELCHAIR: Activity did not occur on this shift LOCOMOTION: WHEELCHAIR - SCORE: 0-UNK COMPREHENSION: COMPREHENSION: TYPE: Both COMPREHENSION - STEP 1: Does the patient require help from a person or device, or need extra time to understand complex and a bstract ideas (such as current events, finances, discharge planning, medical issues, relationships, e tc)? No. COMPREHENSION - STEP 2: Does the patient need extra time, require an assistive device (such as glasses for visual comprehensi on or a hearing aid for auditory comprehension) or does s/he have mild difficulty understanding compl ex and abstract information? No. COMPREHENSION - SCORE: 7-IND EXPRESSION EXPRESSION: TYPE: Both EXPRESSION - STEP 1: Does the patient require help from a person or device, or need extra time expressing complex and abst ract ideas (such as current events, finances, discharge planning, medical issues, relationships, etc) ? No. EXPRESSION - STEP 2: Does the patient need extra time, require an assistive device (such as augmentive communication syste m or a communication board), OR does s/he have mild difficulty expressing complex and abstract ideas (including mild dysarthria or mild word-find problems)? No. EXPRESSION - SCORE: 7-IND SOCIAL INTERACTION: SOCIAL INTERACTION - STEP 1: Does the patient require a helper to interact with others in social and therapeutic situations? No. SOCIAL INTERACTION - STEP 2: Does the patient need extra time in social situations, OR does s/he interact with staff, other patien ts, and family members ONLY in structured environments, OR does s/he require medication for social in teraction? No. SOCIAL INTERACTION - SCORE: 7-IND PROBLEM SOLVING: PROBLEM SOLVING - STEP 1: Does the patient need help from a person or device, or need extra time to solve complex problems such as managing a checking account or confronting interpersonal problems? No. PROBLEM SOLVING - STEP 2: Does the patient require extra time to make decisions or solve problems, OR does s/he have slight dif ficulty reading, initiating, or self-correcting in unfamiliar situations? No. PROBLEM SOLVING - SCORE: 7-IND MEMORY: MEMORY - STEP 1: Does the patient need help from a person or device, or need extra time to remember frequently encount ered people, daily routines, and executing requests? No. MEMORY - STEP 2: Does the patient have slight difficulty recognizing frequently encountered people, daily routines, or executing requests without the need for repetition or using self-initiated or environmental cues to remember? No. MEMORY - SCORE: 7-IND SIGNATURE PANEL: The following modified sections: Eating - Score, Grooming - Score, Bathing - Score, Dressing - Upper Body - Score, Dressing - Lower Body - Score, Toileting - Score, Bladder Management - Score, Bowel Man agement - Score, Transfers: Bed, Chair, Wheelchair - Score, Transfers: Toilet - Score, Transfers: Ivon wer - Score, Transfers: Tub - Score, Locomotion: Walk - Score, Locomotion: Wheelchair - Score, Compre hension - Score, Expression - Score, Social Interaction - Score, Problem Solving - Score, Memory - Sc ore were [electronically] signed by Karan Jung on WedOct 27 2018 15:19:53 GMT-0600 (Central Standard Time)
--- NOTE | 2018-10-27 15:48 | FAST ---
ENCOUNTER DATE AND TIME: 10/27/2018 08:00 (SURVEY DATA TECHNICIAN) NAME TENA ESTRADA DATE OF : 1960 DATE OF ADMISSION: 10/21/2018 22:32 (SURVEY DATA TECHNICIAN) PHONE: AGE: 57 SSN# [id number] GENDER: Male ENCOUNTER PHYSICIAN: Dr. Jesus Chandler M.D. ADMISSION DIAGNOSIS: - Debility 16 - Debility (16) SMALL BOWEL OBSTRUCTION. EATING: Activity did not occur on this shift EATING - SCORE: 0-UNK GROOMING: Activity did not occur on this shift GROOMING - SCORE: 0-UNK BATHING: Activity did not occur on this shift BATHING - SCORE: 0-UNK DRESSING - UPPER BODY: Activity did not occur on this shift Patient is not dressing in public clothing ARTICLES SCORE Total number of steps: 0 DRESSING - UPPER BODY - SCORE: 0-UNK DRESSING - LOWER BODY: Activity did not occur on this shift Patient is not dressing in public clothing ARTICLES SCORE Total number of steps: 0 DRESSING - LOWER BODY - SCORE: 0-UNK TOILETING: Activity did not occur on this shift TOILETING - SCORE: 0-UNK BLADDER MANAGEMENT: Activity did not occur on this shift BLADDER MANAGEMENT - SCORE: 7-IND BOWEL MANAGEMENT: Activity did not occur on this shift BOWEL MANAGEMENT - SCORE: 7-IND TRANSFERS: BED, CHAIR, WHEELCHAIR: TRANSFERS: BED, CHAIR, WHEELCHAIR - STEP 1: Does the patient require assitance of a person or device, or need extra time with bed, chair, or whee lchair transfers? Yes. TRANSFERS: BED, CHAIR, WHEELCHAIR - STEP 2: Does the patient require the assistance of a helper? No. Patient only requires an assistive device fo r bed, chair, wheelchair transfers such as a sliding board, grab bar, or brace, OR s/he takes more th an reasonable time, OR there is a safety concern when s/he performs the transfers TRANSFERS: BED, CHAIR, WHEELCHAIR - SCORE: 6-BRI TRANSFERS: TOILET: Activity did not occur on this shift TRANSFERS: TOILET - SCORE: 0-UNK TRANSFERS: SHOWER: Activity did not occur on this shift TRANSFERS: SHOWER - SCORE: 0-UNK TRANSFERS: TUB: Activity did not occur on this shift TRANSFERS: TUB - SCORE: 0-UNK LOCOMOTION: WALK: LOCOMOTION: WALK - STEP 1: Does the patient need help from a person or device, or need extra time to walk 150 feet? Yes. LOCOMOTION: WALK - STEP 2: How much assistance does the patient require to walk a minimum of 150 feet? Only supervision, cuing, or coaxing LOCOMOTION: WALK - SCORE: 5-SUP LOCOMOTION: WHEELCHAIR: LOCOMOTION: WHEELCHAIR - STEP 1: Does the patient need help to go 150 feet in a wheelchair? No. LOCOMOTION: WHEELCHAIR - SCORE: 6-BRI LOCOMOTION: STAIRS: LOCOMOTION: STAIRS - STEP 1: Does the patient need help to go up and down 12 to 14 stairs? Yes. LOCOMOTION: STAIRS - STEP 2: How much assistance does the patient need from the helper to go a minimum of 12 to 14 stairs? Only in cidental help such as contact guarding or steadying LOCOMOTION: STAIRS - SCORE: 4-MIN COMPREHENSION: COMPREHENSION - SCORE: 0-UNK EXPRESSION EXPRESSION - SCORE: 0-UNK SOCIAL INTERACTION: SOCIAL INTERACTION - SCORE: 0-UNK PROBLEM SOLVING: PROBLEM SOLVING - SCORE: 0-UNK MEMORY: MEMORY - SCORE: 0-UNK SIGNATURE PANEL: The following modified sections: Transfers: Bed, Chair, Wheelchair - Score, Transfers: Toilet - Score , Locomotion: Walk - Score, Locomotion: Wheelchair - Score, Locomotion: Stairs - Score were [carter ibarra] signed by Ez Aguirre PT on WedOct 27 2018 15:47:07 GMT-0600 (Central Standard Time)
[2018-10-27] MEDS: RIVAROXABAN 20 MG TABLET PO SCH (17:03)
--- NOTE | 2018-10-27 18:23 | R.PN ---
ENCOUNTER DATE AND TIME: 10/27/2018 18:20 (DOCUMENT CONTROL ASSISTANT) NAME TENA ESTRADA DATE OF : 1960 DATE OF ADMISSION: 10/21/2018 22:32 (DOCUMENT CONTROL ASSISTANT) SMALL BOWEL OBSTRUCTIONCHIEF COMPLAINT: Small bowel obstruction. Status post abdominal surgery SUBJECTIVE: Pt denied any Shortness of Breath. Pt denied any depression. Ambulated 750' with standby assistance using a rolling walker. Posterior propelled wheelchair 500' wi th bilateral lower extremities. Up and down 11 steps with contact guard assistance. VITAL SIGNS Temperature: 97.6 F SBP/DBP: 121/78 Pulse: 68 Resp: 16 MEDICATION ALLERGIES: Demerol REMICADE ENVIRONMENTAL ALLERGIES: None Known - Substance Allergies None Known - Other Allergies LATEX NURSING: - Shower allowing shower ACTIVITIES OOB only with supervision THERAPIES: - Occupational Therapy Evaluate and Treat. - Physical Therapy Evaluate and Treat. PHYSICAL EXAM - Gen Alert and awake Lying in bed No apparent distress Oriented to: person, time, and place - Skin Healing surgical wound in the abdomen. - Eyes No abnormalities - ENMT No abnormalities - Neck No abnormalities - CVS RRR - Chest Incision is healing with good hemostasis. - Resp No wheezing - Abd +bowel sounds - GI Obese Deferred - No abnormalities - Ext Mild bilateral lower extremity edema. - MSK 4+/5 weakness in both lower extremities. - Neuro 4/5 strength bilaterally upper and lower extremities. - Psych No abnormalities ASSESSMENT: Pt. is a 57 yo Right-handed white male.On 10/05/2018 he was admitted to [facility] with diagno sis SMALL BOWEL OBSTRUCTION.His impairment category is Debility 16 - Debility (16).Pre-morbidly, Pt. was independent/mod-I in Communication, Social Cognition, Self-Care, Locomotion, Sphincter Control, and Transfers Control; and he had good Sphincter Control.Currently, he has deficits of Balance, Self- Care, Locomotion, Endurance, Safety Awareness, and Transfers Control.Pt. is now referred to [facility] for acute in-patient rehabilitation in order to maximize patient's functiona l independence in activities of daily living, strength, ROM, and mobility.- Rehab Goal Patient has realistic goal of being discharged at assistance level 6-Erasmo to reside at Home with Fam james/Relatives. MDM/PLAN: - Physical Therapy Gait dysfunction - to improve, our physical therapists will perform initial evaluation of pt's statu s upon admission and devise an individualized program for Gait Training, and Wheel Chair mobility Inability to transfer - to improve, our physical therapists will perform initial evaluation of pt's status upon admission and devise an individualized program for Bed mobility Need for home safety evaluation - to improve, our physical therapists will perform initial evaluatio n of pt's status upon admission and devise an individualized program for Home Evaluation Need in caregiver upon discharge - to improve, our physical therapists will perform initial evaluati on of pt's status upon admission and devise an individualized program for Caregiver Training Edema - to improve, our physical therapists will perform initial evaluation of pt's status upon admi ssion and devise an individualized program for Elevation Training, and Lymphedema Therapy New precaution - to improve, our physical therapists will perform initial evaluation of pt's status upon admission and devise an individualized program for Patient precaution education Having wound - to improve, our physical therapists will perform initial evaluation of pt's status up on admission and devise an individualized program for Wound Care Poor balance - to improve, our physical therapists will perform initial evaluation of pt's status up on admission and devise an individualized program for Balance Training Poor endurance - to improve, our physical therapists will perform initial evaluation of pt's status upon admission and devise an individualized program for Endurance Training Weakness - to improve, our physical therapists will perform initial evaluation of pt's status upon a dmission and devise an individualized program for Aquatic Therapy, Neuromuscular Reeducation, and Str engthening Achieving independence - to improve, our physical therapists will perform initial evaluation of pt's status upon admission and devise an individualized program for Community Reintegration Activities - Occupational Therapy ADL deficits - to improve, our occupation therapists will perform initial evaluation of pt's status upon admission and devise an individualized program for Bathing, Bed mobility, Community Reintegratio n, Cooking, Dressing, Eating, Fine Motor Skills, Grooming, Homemaking, Kitchen Mobility, Laundry, Pat ient Education, Safety Awareness, Splinting - Positioning, Transfers(Toilet, Tub, Shower), and Wheel Chair Management Need for rn managed care - to improve, our occupation therapists will perform initial evaluation of pt's status upon admission and devise an individualized program for Caregiver Training Weakness - to improve, our occupation therapists will perform initial evaluation of pt's status upon admission and devise an individualized program for Aquatic Therapy, Balance, Endurance, UE ROM, and UE strengthening - Diet Type Continue BARIATRIC FULLS - Diet - Liquid Texture Continue Regular - Tube Feed Continue N/A - Diet - Solid Texture Continue Regular - Shower allowing shower FUNCTIONAL STATUS: UPDATED AT WEEKLY TEAM CONFERENCE - Bladder Same accident frequency: 7-Ind - No accidents in the past 7 days - Bowel Same accident frequency: 7-Ind - No accidents in the past 7 days - Walking Same score based on distance walked: 3(>=150ft) - Wheelchair Same score based on distance traveled: 0(N/A) FUNCTIONAL STATUS: - Self-Care A. Eating sup B. Grooming sup C. Bathing sup D. Dressing - Upper sup E. Dressing - Lower sup F. Toileting Dep - Sphincter Control G: Bladder control Dep H: Bowel control Ind - Transfers Control I. Bed/Chair/Wheelchair sup J. Toilet Lila K. Tub/Shower Ind - Locomotion L. Walk/Wheelchair (C) Lila L. Walk/Wheelchair (W) Lila M. Stairs ADNO - Communication N. Comprehension (B) Ind O. Expression (B) Ind - Social Cognition P. Social Interaction Ind Q. Problem Solving Ind R. Memory Ind - Endurance Fair - Balance Fair - Safety Awareness Fair CURRENT FUNC. DEFICITS: Balance, Self-Care, Locomotion, Endurance, Safety Awareness, and Transfers Control SIGNATURE PANEL: ([facility])
--- NOTE | 2018-10-28 01:04 | FAST ---
SHIFT START DATE/TIME: 10/27/2018 19:00 (BENCH WORKER) SHIFT END DATE/TIME: 10/28/2018 07:00 (BENCH WORKER) NAME TENA ESTRADA DATE OF : 1960 DATE OF ADMISSION: 10/21/2018 22:32 (BENCH WORKER) PHONE: AGE: 57 SSN# [id number] GENDER: Male ENCOUNTER PHYSICIAN: Dr. Jesus Chandler M.D. ADMISSION DIAGNOSIS: - Debility 16 - Debility (16) SMALL BOWEL OBSTRUCTION. EATING: Activity did not occur on this shift EATING - SCORE: 0-UNK GROOMING: Activity did not occur on this shift GROOMING - SCORE: 0-UNK BATHING: Activity did not occur on this shift BATHING - SCORE: 0-UNK DRESSING - UPPER BODY: Patient is not dressing in public clothing ARTICLES SCORE Total number of steps: 0 DRESSING - UPPER BODY - SCORE: 0-UNK DRESSING - LOWER BODY: Patient is not dressing in public clothing ARTICLES SCORE Total number of steps: 0 DRESSING - LOWER BODY - SCORE: 0-UNK TOILETING: TOILETING - STEP 1: Does the patient require the assistance of a person or device, or need extra time with toileting? Yes . TOILETING - STEP 2: Does the patient require the assistance of a helper? Yes. TOILETING - STEP 3: How much assistance does the patient require from the helper? Only supervision TOILETING - SCORE: 5-SUP BLADDER MANAGEMENT: BLADDER MANAGEMENT - STEP 1: Does the patient control the bladder completely and intentionally without equipment or devices or med ications, and is always continent? No. BLADDER MANAGEMENT - STEP 2: Does the patient require the assistance of a helper? Yes. BLADDER MANAGEMENT - STEP 3: How much assistance does the patient require from the helper? Only supervision, stand-by, cuing, or c oaxing BLADDER MANAGEMENT - SCORE: 5-SUP BOWEL MANAGEMENT: Activity did not occur on this shift BOWEL MANAGEMENT - SCORE: 7-IND TRANSFERS: BED, CHAIR, WHEELCHAIR: Activity did not occur on this shift TRANSFERS: BED, CHAIR, WHEELCHAIR - SCORE: 0-UNK TRANSFERS: TOILET: Activity did not occur on this shift TRANSFERS: TOILET - SCORE: 0-UNK TRANSFERS: SHOWER: Activity did not occur on this shift TRANSFERS: SHOWER - SCORE: 0-UNK TRANSFERS: TUB: Activity did not occur on this shift TRANSFERS: TUB - SCORE: 0-UNK LOCOMOTION: WALK: Activity did not occur on this shift LOCOMOTION: WALK - SCORE: 0-UNK LOCOMOTION: WHEELCHAIR: Activity did not occur on this shift LOCOMOTION: WHEELCHAIR - SCORE: 0-UNK COMPREHENSION: COMPREHENSION: TYPE: Both COMPREHENSION - STEP 1: Does the patient require help from a person or device, or need extra time to understand complex and a bstract ideas (such as current events, finances, discharge planning, medical issues, relationships, e tc)? No. COMPREHENSION - STEP 2: Does the patient need extra time, require an assistive device (such as glasses for visual comprehensi on or a hearing aid for auditory comprehension) or does s/he have mild difficulty understanding compl ex and abstract information? Yes. COMPREHENSION - SCORE: 6-BRI EXPRESSION EXPRESSION: TYPE: Both EXPRESSION - STEP 1: Does the patient require help from a person or device, or need extra time expressing complex and abst ract ideas (such as current events, finances, discharge planning, medical issues, relationships, etc) ? No. EXPRESSION - STEP 2: Does the patient need extra time, require an assistive device (such as augmentive communication syste m or a communication board), OR does s/he have mild difficulty expressing complex and abstract ideas (including mild dysarthria or mild word-find problems)? No. EXPRESSION - SCORE: 7-IND SOCIAL INTERACTION: SOCIAL INTERACTION - STEP 1: Does the patient require a helper to interact with others in social and therapeutic situations? No. SOCIAL INTERACTION - STEP 2: Does the patient need extra time in social situations, OR does s/he interact with staff, other patien ts, and family members ONLY in structured environments, OR does s/he require medication for social in teraction? No. SOCIAL INTERACTION - SCORE: 7-IND PROBLEM SOLVING: PROBLEM SOLVING - STEP 1: Does the patient need help from a person or device, or need extra time to solve complex problems such as managing a checking account or confronting interpersonal problems? No. PROBLEM SOLVING - STEP 2: Does the patient require extra time to make decisions or solve problems, OR does s/he have slight dif ficulty reading, initiating, or self-correcting in unfamiliar situations? Yes, patient needs extra ti me. PROBLEM SOLVING - SCORE: 6-BRI MEMORY: MEMORY - STEP 1: Does the patient need help from a person or device, or need extra time to remember frequently encount ered people, daily routines, and executing requests? No. MEMORY - STEP 2: Does the patient have slight difficulty recognizing frequently encountered people, daily routines, or executing requests without the need for repetition or using self-initiated or environmental cues to remember? No. MEMORY - SCORE: 7-IND SIGNATURE PANEL: The following modified sections: Eating - Score, Grooming - Score, Dressing - Upper Body - Score, Rigoberto ssing - Lower Body - Score, Toileting - Score, Bladder Management - Score, Bowel Management - Score, Transfers: Bed, Chair, Wheelchair - Score, Transfers: Toilet - Score, Transfers: Shower - Score, Fraga sfers: Tub - Score, Locomotion: Walk - Score, Locomotion: Wheelchair - Score, Comprehension - Score, Expression - Score, Social Interaction - Score, Problem Solving - Score, Memory - Score were [electro nically] signed by Ciara Crane CNA on WedOct 28 2018 01:01:28 GMT-0600 (Central Standard Time)
--- NOTE | 2018-10-28 02:08 | PN ---
Date of Progress Note: 10/26/2018 Subjective: The patient was seen this morning for followup. Lying in bed, not in distress. No new complaints or problems reported by patient. Denies any vomiting except had some nausea, vomiting las t night. Extra dose of Phenergan was given. Objective: Vital Signs: Reviewed. HEENT: Unremarkable. Lungs: Clear to auscultation. Heart: Sounds normal. Abdomen: Soft. Bowel sounds normal. No guarding, rigidity, tenderness, distention. Extremities: Bilateral leg edema and hand edema present. Impression: 1.Debility. 2.Generalized weakness. 3.Hypertension. 4.Paroxysmal atrial fibrillation. Plan: We will go ahead and continue current medication. Spironolactone dose will be increased to 25 mg twice a day. Continue physical therapy per guidance of Dr. Chandler. JORDAN/MODL Voice ID: [id number] Report ID: [id number]
--- NOTE | 2018-10-28 02:14 | PN ---
Date of Progress Note: 10/27/2018 Subjective: The patient was seen this morning for followup. He did have another episode of nausea, vomiting last night. Required extra dose of Phenergan and Phenergan dose was increased from 12.5 to 25 mg. Denies any abdominal pain. Objective: Vital Signs: Reviewed. HEENT: Unremarkable. Lungs: Clear to auscultation. Heart: Sounds normal. Abdomen: Soft, bowel sounds normal. No guarding, rigidity, tenderness, or distention. Extremities: Trace leg and arm edema. Impression: 1.Debility. 2.Generalized weakness. 3.Chronic steroid therapy. 4.Paroxysmal atrial fibrillation. 5.Hypertension. 6.Chronic steroid therapy. Plan: We will go ahead and continue spironolactone at current dose. Reduce prednisone dose. Contin ue physical therapy per guidance of Dr. Chandler. See him tomorrow for followup. JORDAN/MODL Voice ID: [id number] Report ID: [id number]
[2018-10-28] MEDS: PROMETHAZINE 25 MG/ML VIAL IV PRN ×4 (04:53→23:20)
[2018-10-28] MEDS: SOTALOL HCL 80 MG TAB PO SCH ×2 (05:00→17:03)
[2018-10-28] MEDS: PANTOPRAZOLE 40MG TABLET PO SCH (06:29)
[2018-10-28] MEDS: HYDROCODONE/APAP 10/325 TAB PO PRN ×4 (06:52→23:20)
[2018-10-28] MEDS: PROMOD 30 ML DOSE PO SCH ×2 (08:00→20:00)
[2018-10-28] MEDS: POLYETHYL GLY 3350 17 GM/DOSE PO SCH (08:00)
[2018-10-28] MEDS: FOLIC ACID 1 MG TABLET PO SCH (08:12)
[2018-10-28] MEDS: ONDANSETRON 4 MG (ODT) TAB PO PRN (08:12)
[2018-10-28] MEDS: FERROUS SULFATE 325 MG TAB PO SCH (08:12)
[2018-10-28] MEDS: DOCUSATE NA/SENNA CONC 1 TAB PO SCH ×2 (08:13→20:07)
[2018-10-28] MEDS: SPIRONOLACTONE 25 MG TABLET PO SCH ×2 (08:13→20:00)
[2018-10-28] MEDS: predniSONE 20 MG TAB PO SCH (08:13)
[2018-10-28] MEDS: DULOXETINE 30 MG CAP PO SCH (08:13)
[2018-10-28] MEDS: MULTIVITAMIN TAB PO SCH (08:13)
[2018-10-28] MEDS: FE SULF/FA/VIT B COMP & C TAB PO SCH (08:14)
--- NOTE | 2018-10-28 09:43 | P.RH.PN ---
Estimated Length of Stay: 11 Expected Discharge Date: 11/01/18 Discharge Disposition Plan: Home Family Support: Yes Alf Goal: Mobility, Transfers, Self Care Vital Signs: Last Vital Signs Temp 97.5 F 10/28/18 06:55 Pulse 76 10/28/18 08:13 Resp 20 10/28/18 06:55 BP 118/73 10/28/18 08:13 Pulse Ox 97 10/28/18 06:55 Laboratory: Laboratory Last Values WBC 8.1 K/uL (4.3-10.9) D 10/27/18 06:25 RBC 3.41 M/uL (4.33-5.43) L 10/27/18 06:25 Hgb 10.6 g/dL (13.6-17.9) L 10/27/18 06:25 Hct 32.4 % (39.6-49.0) L 10/27/18 06:25 MCV 94.7 fL (80-100) 10/27/18 06:25 MCH 31.0 pg (27.0-35.0) 10/27/18 06:25 MCHC 32.7 g/dL (32.0-36.0) 10/27/18 06:25 RDW 14.9 % (12.1-15.2) 10/27/18 06:25 Plt Count 251 K/uL (152-406) D 10/27/18 06:25 MPV 9.2 fL (7.6-11.3) 10/27/18 06:25 Neutrophils % 70.3 % (41.7-73.7) 10/27/18 06:25 Lymphocytes % 21.5 % (15.3-44.8) 10/27/18 06:25 Monocytes % 7.7 % (3.3-12.3) 10/27/18 06:25 Eosinophils % 0.3 % (0-4.4) 10/27/18 06:25 Basophils % 0.2 % (0-1.3) 10/27/18 06:25 Absolute Neutrophils 5.7 K/uL (1.8-8.0) 10/27/18 06:25 Absolute Lymphocytes 1.7 K/uL (0.7-4.9) 10/27/18 06:25 Absolute Monocytes 0.6 K/uL (0.1-1.3) 10/27/18 06:25 Absolute Eosinophils 0.0 K/uL (0-0.5) 10/27/18 06:25 Absolute Basophils 0.0 K/uL (0-0.5) 10/27/18 06:25 Sodium 143 mmol/L (136-145) 10/27/18 06:25 Potassium 4.5 mmol/L (3.5-5.1) 10/27/18 06:25 Chloride 106 mmol/L (98-107) 10/27/18 06:25 Carbon Dioxide 31 mmol/L (21-32) 10/27/18 06:25 BUN 19 mg/dL (7-18) H 10/27/18 06:25 Creatinine 0.80 mg/dL (0.55-1.3) 10/27/18 06:25 Estimated GFR > 90 mL/min (=/>90) 10/27/18 06:25 Glucose 171 mg/dL (74-106) H 10/27/18 06:25 POC Glucose 177 mg/dl (65-120) H 10/24/18 11:58 Hemoglobin A1c 7.8 % (4.2-6.3) H 10/23/18 06:24 Calcium 8.3 mg/dL (8.5-10.1) L 10/27/18 06:25 Magnesium 2.0 mg/dL (1.8-2.4) 10/27/18 06:25 Total Bilirubin 0.3 mg/dL (0.2-1.0) 10/27/18 06:25 AST 7 U/L (15-37) L 10/27/18 06:25 ALT 27 U/L (12-78) 10/27/18 06:25 Alkaline Phosphatase 90 U/L (45-117) 10/27/18 06:25 Serum Total Protein 5.6 g/dL (6.4-8.2) L 10/27/18 06:25 Albumin 2.7 g/dL (3.4-5.0) L 10/27/18 06:25 Globulin 2.9 g/dL (2.3-3.5) 10/27/18 06:25 Albumin/Globulin Ratio 0.9 (1.1-1.8) L 10/27/18 06:25 Prealbumin 25.5 mg/dL (20-40) 10/27/18 06:25 Urine Color Yellow 10/22/18 04:30 Urine Appearance Clear 10/22/18 04:30 Urine pH 5.5 (5.0-7.0) 10/22/18 04:30 Ur Specific [place] 1.010 (1.005-1.030) 10/22/18 04:30 Urine Ketones Negative (NEG) 10/22/18 04:30 Urine Blood Negative (NEG) 10/22/18 04:30 Urine Nitrite Negative (NEG) 10/22/18 04:30 Urine Bilirubin Negative (NEG) 10/22/18 04:30 Urine Urobilinogen 0.2 mg/dL (0.2-1.0) 10/22/18 04:30 Ur Leukocyte Esterase 1+ (NEG) H 10/22/18 04:30 Urine RBC <5 /HPF (NONE SEEN) 10/22/18 04:30 Urine WBC 10-20 /HPF (<5) H 10/22/18 04:30 Ur Squamous Epith Cells FIELD TECHNICAL SPECIALIST 10/22/18 04:30 Ur Urothelial Cells <5 /HPF (NONE SEEN) 10/22/18 04:30 Urine Bacteria <20 /HPF (NONE SEEN) 10/22/18 04:30 Urine Culture Reflexed Not needed 10/22/18 04:30 Urine Glucose Negative (NEG) 10/22/18 04:30 Urine Total Protein Negative (NEG) 10/22/18 04:30 Weight: 410 lb 1 oz Wound Present: No Closed Surgical Incision Present: Yes Negative Pressure Wound Therapy Present: No Physician Update: He reports nausea helped by iv phenergan. He walked 250' and up and down steps yesterday with minimum assistance. His labs have been reviewed and are essentially within normal limits. Medical Issues: Nausea- Phenergan 25mg IV Q6H PRN. Phenergan 12.5mg MI Q6H PRN. Phenergan 12.5mg PO Q6H PRN Pain Issues: [place] 10/325mg Q4H PO PRN Functional Improvement: pt has demonstrated progress with all functional mobility. He delio continue to fatigue and requires some supervision for safety during ambulation. pt Requires further training on stairs and steps including car transfers. Functional Improvement Occupational Therapy: PATIENT DEMONSTRATING GOOD PROGRESS TOWARD LTG SET IN POC. CONTINUES TO BENEFIT FROM FURTHER OT TO ADDRESS OVERALL STRENGHT/ENDURANCE TO IMPROVE FUNCTIONAL ACTIVITY TOLERANCE. 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 Please see the Rehabilitation Signature page for all necessary signatures.
--- NOTE | 2018-10-28 11:10 | FAST ---
SHIFT START DATE/TIME: 10/28/2018 07:00 (DISH MACHINE OPERATOR) SHIFT END DATE/TIME: 10/28/2018 19:00 (DISH MACHINE OPERATOR) NAME TENA ESTRADA DATE OF : 1960 DATE OF ADMISSION: 10/21/2018 22:32 (DISH MACHINE OPERATOR) PHONE: AGE: 57 SSN# [id number] GENDER: Male ENCOUNTER PHYSICIAN: Dr. Jesus Chandler M.D. ADMISSION DIAGNOSIS: - Debility 16 - Debility (16) SMALL BOWEL OBSTRUCTION. EATING: EATING - STEP 1: Does the patient require the assistance of a person or device, or need extra time when eating? Yes. EATING - STEP 2: Does the patient require the assistance of a helper? No, patient only requires an assistive device, O R s/he takes more than reasonable time to eat, OR there is a safety concern, OR s/he requires modifie d food consistency EATING - SCORE: 6-BRI GROOMING: Activity did not occur on this shift GROOMING - SCORE: 0-UNK BATHING: Activity did not occur on this shift BATHING - SCORE: 0-UNK DRESSING - UPPER BODY: Activity did not occur on this shift ARTICLES SCORE Total number of steps: 0 DRESSING - UPPER BODY - SCORE: 0-UNK DRESSING - LOWER BODY: Activity did not occur on this shift ARTICLES SCORE Total number of steps: 0 DRESSING - LOWER BODY - SCORE: 0-UNK TOILETING: TOILETING - STEP 1: Does the patient require the assistance of a person or device, or need extra time with toileting? Yes . TOILETING - STEP 2: Does the patient require the assistance of a helper? Yes. TOILETING - STEP 3: How much assistance does the patient require from the helper? Only supervision TOILETING - SCORE: 5-SUP BLADDER MANAGEMENT: BLADDER MANAGEMENT - STEP 1: Does the patient control the bladder completely and intentionally without equipment or devices or med ications, and is always continent? No. BLADDER MANAGEMENT - STEP 2: Does the patient require the assistance of a helper? No, patient requires and independently uses an a ssistive device, such as a urinal, bedpan, bedside commode, catheter, absorbent pad, or collecting de vice BLADDER MANAGEMENT - SCORE: 6-BRI BLADDER MANAGEMENT - FREQUENCY OF ACCIDENTS: BLADDER MANAGEMENT(FA) - STEP 1: How many accidents has the patient had during the current shift? 0 BOWEL MANAGEMENT: Activity did not occur on this shift BOWEL MANAGEMENT - SCORE: 7-IND TRANSFERS: BED, CHAIR, WHEELCHAIR: TRANSFERS: BED, CHAIR, WHEELCHAIR - STEP 1: Does the patient require assitance of a person or device, or need extra time with bed, chair, or whee lchair transfers? Yes. TRANSFERS: BED, CHAIR, WHEELCHAIR - STEP 2: Does the patient require the assistance of a helper? Yes. TRANSFERS: BED, CHAIR, WHEELCHAIR - STEP 3: How much assistance does the patient require from the helper? Only supervision TRANSFERS: BED, CHAIR, WHEELCHAIR - SCORE: 5-SUP TRANSFERS: TOILET: TRANSFERS: TOILET - STEP 1: Does the patient require the assistance of a person or device, or need extra time with toilet transfe rs? Yes. TRANSFERS: TOILET - STEP 2: Does the patient require the assistance of a helper? Yes. TRANSFERS: TOILET - STEP 3: How much assistance does the patient require from the helper? Patient performs half or more of the tr ansferring tasks TRANSFERS: TOILET - STEP 4: Does the patient need only incidental help such as contact guard or steadying during toilet transfer? Yes. TRANSFERS: TOILET - SCORE: 4-MIN TRANSFERS: SHOWER: Activity did not occur on this shift TRANSFERS: SHOWER - SCORE: 0-UNK TRANSFERS: TUB: Activity did not occur on this shift TRANSFERS: TUB - SCORE: 0-UNK LOCOMOTION: WALK: Activity did not occur on this shift LOCOMOTION: WALK - SCORE: 0-UNK LOCOMOTION: WHEELCHAIR: LOCOMOTION: WHEELCHAIR - STEP 1: Does the patient need help to go 150 feet in a wheelchair? Yes. LOCOMOTION: WHEELCHAIR - STEP 2: How much assistance does the patient need from the helper? Only supervision, cuing, or coaxing LOCOMOTION: WHEELCHAIR - SCORE: 5-SUP COMPREHENSION: COMPREHENSION: TYPE: Both COMPREHENSION - STEP 1: Does the patient require help from a person or device, or need extra time to understand complex and a bstract ideas (such as current events, finances, discharge planning, medical issues, relationships, e tc)? No. COMPREHENSION - STEP 2: Does the patient need extra time, require an assistive device (such as glasses for visual comprehensi on or a hearing aid for auditory comprehension) or does s/he have mild difficulty understanding compl ex and abstract information? Yes. COMPREHENSION - SCORE: 6-BRI EXPRESSION EXPRESSION: TYPE: Both EXPRESSION - STEP 1: Does the patient require help from a person or device, or need extra time expressing complex and abst ract ideas (such as current events, finances, discharge planning, medical issues, relationships, etc) ? No. EXPRESSION - STEP 2: Does the patient need extra time, require an assistive device (such as augmentive communication syste m or a communication board), OR does s/he have mild difficulty expressing complex and abstract ideas (including mild dysarthria or mild word-find problems)? Yes. EXPRESSION - SCORE: 6-BRI SOCIAL INTERACTION: SOCIAL INTERACTION - STEP 1: Does the patient require a helper to interact with others in social and therapeutic situations? No. SOCIAL INTERACTION - STEP 2: Does the patient need extra time in social situations, OR does s/he interact with staff, other patien ts, and family members ONLY in structured environments, OR does s/he require medication for social in teraction? Yes, patient needs extra time SOCIAL INTERACTION - SCORE: 6-RBI PROBLEM SOLVING: PROBLEM SOLVING - STEP 1: Does the patient need help from a person or device, or need extra time to solve complex problems such as managing a checking account or confronting interpersonal problems? No. PROBLEM SOLVING - STEP 2: Does the patient require extra time to make decisions or solve problems, OR does s/he have slight dif ficulty reading, initiating, or self-correcting in unfamiliar situations? Yes, patient needs extra ti me. PROBLEM SOLVING - SCORE: 6-BRI MEMORY: MEMORY - STEP 1: Does the patient need help from a person or device, or need extra time to remember frequently encount ered people, daily routines, and executing requests? No. MEMORY - STEP 2: Does the patient have slight difficulty recognizing frequently encountered people, daily routines, or executing requests without the need for repetition or using self-initiated or environmental cues to remember? Yes. MEMORY - SCORE: 6-BRI SIGNATURE PANEL: The following modified sections: Eating - Score, Grooming - Score, Bathing - Score, Dressing - Upper Body - Score, Dressing - Lower Body - Score, Toileting - Score, Bladder Management - Score, Bowel Man agement - Score, Transfers: Bed, Chair, Wheelchair - Score, Transfers: Toilet - Score, Transfers: Ivon wer - Score, Transfers: Tub - Score, Locomotion: Walk - Score, Locomotion: Wheelchair - Score, Compre hension - Score, Expression - Score, Social Interaction - Score, Problem Solving - Score, Memory - Sc ore were [electronically] signed by Kylie Toussaint C.N.A. on WedOct 28 2018 11:08:36 GMT-0600 (Cent[place] Standard Time)
--- NOTE | 2018-10-28 13:02 | PN ---
Date of Progress Note: 10/28/2018 Subjective: The patient was seen this morning for followup. No new complaints or problems reported by patient. Ambulating well with physical therapy. His swelling from hand is better compared to 2 d ays ago with current diuretic medication. Had a bowel movement yesterday. Has nausea, but no vomiti ng in last 24 hours. Current Phenergan dose, which was increased a day before yesterday has helped h is nausea better. Appetite is good. Objective: Vital Signs: Reviewed. Last temperature this morning 97.5, pulse 76, respiratory rate 2 0, blood pressure 118/73. HEENT: Unremarkable. Lungs: Clear to auscultation. Heart: Sounds normal. Abdomen: Soft. Bowel sounds normal. No guarding, rigidity, tenderness, distention. Extremities: Trace edema. Impression: 1.Leg edema. 2.Generalized weakness. 3.Debility. 4.Paroxysmal atrial fibrillation. 5.Hypertension. 6.Chronic steroid therapy. 7.Chronic anticoagulation therapy. Plan: We will continue current medication. Physical therapy under guidance of Dr. Chandler. I will see him tomorrow for followup. JORDAN/MODL Voice ID: [id number] Report ID: [id number]
--- NOTE | 2018-10-28 14:28 | FAST ---
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 Jesus Chandler M.D. ADMISSION DIAGNOSIS: - Debility 16 - Debility (16) SMALL BOWEL OBSTRUCTION. EATING: Activity did not occur on this shift EATING - SCORE: 0-UNK GROOMING: Activity did not occur on this shift GROOMING - SCORE: 0-UNK BATHING: Activity did not occur on this shift BATHING - SCORE: 0-UNK DRESSING - UPPER BODY: Activity did not occur on this shift Patient is not dressing in public clothing ARTICLES SCORE Total number of steps: 0 DRESSING - UPPER BODY - SCORE: 0-UNK DRESSING - LOWER BODY: Activity did not occur on this shift Patient is not dressing in public clothing ARTICLES SCORE Total number of steps: 0 DRESSING - LOWER BODY - SCORE: 0-UNK TOILETING: Activity did not occur on this shift TOILETING - SCORE: 0-UNK BLADDER MANAGEMENT: Activity did not occur on this shift BLADDER MANAGEMENT - SCORE: 7-IND BOWEL MANAGEMENT: Activity did not occur on this shift BOWEL MANAGEMENT - SCORE: 7-IND TRANSFERS: BED, CHAIR, WHEELCHAIR: TRANSFERS: BED, CHAIR, WHEELCHAIR - STEP 1: Does the patient require assitance of a person or device, or need extra time with bed, chair, or whee lchair transfers? Yes. TRANSFERS: BED, CHAIR, WHEELCHAIR - STEP 2: Does the patient require the assistance of a helper? No. Patient only requires an assistive device fo r bed, chair, wheelchair transfers such as a sliding board, grab bar, or brace, OR s/he takes more th an reasonable time, OR there is a safety concern when s/he performs the transfers TRANSFERS: BED, CHAIR, WHEELCHAIR - SCORE: 6-BRI TRANSFERS: TOILET: Activity did not occur on this shift TRANSFERS: TOILET - SCORE: 0-UNK TRANSFERS: SHOWER: Activity did not occur on this shift TRANSFERS: SHOWER - SCORE: 0-UNK TRANSFERS: TUB: Activity did not occur on this shift TRANSFERS: TUB - SCORE: 0-UNK LOCOMOTION: WALK: LOCOMOTION: WALK - STEP 1: Does the patient need help from a person or device, or need extra time to walk 150 feet? No. LOCOMOTION: WALK - STEP 2: Does the patient need an assistive device (such as an orthosis, prosthesis, crutches, or walker) to g o 150 feet, OR does s/he take more than reasonable time, OR is there a concern for safety? Yes, the p atient needs an assistive device LOCOMOTION: WALK - SCORE: 6-BRI LOCOMOTION: WHEELCHAIR: LOCOMOTION: WHEELCHAIR - STEP 1: Does the patient need help to go 150 feet in a wheelchair? No. LOCOMOTION: WHEELCHAIR - SCORE: 6-BRI LOCOMOTION: STAIRS: Activity did not occur on this shift LOCOMOTION: STAIRS - SCORE: 0-UNK COMPREHENSION: COMPREHENSION - SCORE: 0-UNK EXPRESSION EXPRESSION - SCORE: 0-UNK SOCIAL INTERACTION: SOCIAL INTERACTION - SCORE: 0-UNK PROBLEM SOLVING: PROBLEM SOLVING - SCORE: 0-UNK MEMORY: MEMORY - SCORE: 0-UNK SIGNATURE PANEL: The following modified sections: Transfers: Bed, Chair, Wheelchair - Score, Transfers: Toilet - Score , Locomotion: Walk - Score, Locomotion: Wheelchair - Score, Locomotion: Stairs - Score were [electron ically] signed by Ez Aguirre PT on WedOct 28 2018 14:27:54 GMT-0600 (Central Standard Time)
[2018-10-28 15:09] VITALS: BMI 52.4
[2018-10-28] MEDS: RIVAROXABAN 20 MG TABLET PO SCH (16:11)
--- NOTE | 2018-10-29 02:35 | FAST ---
SHIFT START DATE/TIME: 10/28/2018 19:00 (INVERTED BLOCK OPERATOR) SHIFT END DATE/TIME: 10/29/2018 07:00 (INVERTED BLOCK OPERATOR) NAME TENA ESTRADA DATE OF : 1960 DATE OF ADMISSION: 10/21/2018 22:32 (INVERTED BLOCK OPERATOR) PHONE: AGE: 57 SSN# [id number] GENDER: Male ENCOUNTER PHYSICIAN: Dr. Jesus Chandler M.D. ADMISSION DIAGNOSIS: - Debility 16 - Debility (16) SMALL BOWEL OBSTRUCTION. EATING: Activity did not occur on this shift EATING - SCORE: 0-UNK GROOMING: Oral care Wash, rinse, and dry face Wash, rinse, and dry hands GROOMING - STEP 1: Does the patient require the assistance of a person or device, or need extra time when grooming? Yes. GROOMING - STEP 2: Does the patient require the assistance of a helper? Yes. GROOMING - STEP 3: How much assistance does the patient require from the helper? Only prior equipment preparation/set up from the helper GROOMING - SCORE: 5-SUP BATHING: Activity did not occur on this shift BATHING - SCORE: 0-UNK DRESSING - UPPER BODY: Patient is not dressing in public clothing ARTICLES SCORE Total number of steps: 0 DRESSING - UPPER BODY - SCORE: 0-UNK DRESSING - LOWER BODY: Patient is not dressing in public clothing ARTICLES SCORE Total number of steps: 0 DRESSING - LOWER BODY - SCORE: 0-UNK TOILETING: TOILETING - STEP 1: Does the patient require the assistance of a person or device, or need extra time with toileting? Yes . TOILETING - STEP 2: Does the patient require the assistance of a helper? Yes. TOILETING - STEP 3: How much assistance does the patient require from the helper? Hands-on assistance from the helper TOILETING - STEP 4: Of the 3 tasks: 1) Adjusting clothing prior to use, 2) Cleansing of perineal area, 3) Adjusting clot heber after use; How many tasks does the patient perform WITHOUT assistance of the helper? Three tasks with steadying assistance from the helper TOILETING - SCORE: 4-MIN BLADDER MANAGEMENT: BLADDER MANAGEMENT - STEP 1: Does the patient control the bladder completely and intentionally without equipment or devices or med ications, and is always continent? No. BLADDER MANAGEMENT - STEP 2: Does the patient require the assistance of a helper? Yes. BLADDER MANAGEMENT - STEP 3: How much assistance does the patient require from the helper? Only set-up of equipment - such as plac ing it within reach of the patient or emptying a device - to maintain either satisfactory voiding pat tern or managing an external device, such as an absorbent pad, ileal device, or catheter BLADDER MANAGEMENT - SCORE: 5-SUP BOWEL MANAGEMENT: Activity did not occur on this shift BOWEL MANAGEMENT - SCORE: 7-IND TRANSFERS: BED, CHAIR, WHEELCHAIR: TRANSFERS: BED, CHAIR, WHEELCHAIR - STEP 1: Does the patient require assitance of a person or device, or need extra time with bed, chair, or whee lchair transfers? Yes. TRANSFERS: BED, CHAIR, WHEELCHAIR - STEP 2: Does the patient require the assistance of a helper? Yes. TRANSFERS: BED, CHAIR, WHEELCHAIR - STEP 3: How much assistance does the patient require from the helper? Lifting of the legs TRANSFERS: BED, CHAIR, WHEELCHAIR - STEP 4: How many legs does the patient require the helper to lift? both legs TRANSFERS: BED, CHAIR, WHEELCHAIR - SCORE: 3-MOD TRANSFERS: TOILET: TRANSFERS: TOILET - STEP 1: Does the patient require the assistance of a person or device, or need extra time with toilet transfe rs? Yes. TRANSFERS: TOILET - STEP 2: Does the patient require the assistance of a helper? Yes. TRANSFERS: TOILET - STEP 3: How much assistance does the patient require from the helper? Patient performs half or more of the tr ansferring tasks TRANSFERS: TOILET - STEP 4: Does the patient need only incidental help such as contact guard or steadying during toilet transfer? Yes. TRANSFERS: TOILET - SCORE: 4-MIN TRANSFERS: SHOWER: Activity did not occur on this shift TRANSFERS: SHOWER - SCORE: 0-UNK TRANSFERS: TUB: Activity did not occur on this shift TRANSFERS: TUB - SCORE: 0-UNK LOCOMOTION: WALK: Activity did not occur on this shift LOCOMOTION: WALK - SCORE: 0-UNK LOCOMOTION: WHEELCHAIR: Activity did not occur on this shift LOCOMOTION: WHEELCHAIR - SCORE: 0-UNK COMPREHENSION: COMPREHENSION: TYPE: Both COMPREHENSION - STEP 1: Does the patient require help from a person or device, or need extra time to understand complex and a bstract ideas (such as current events, finances, discharge planning, medical issues, relationships, e tc)? No. COMPREHENSION - STEP 2: Does the patient need extra time, require an assistive device (such as glasses for visual comprehensi on or a hearing aid for auditory comprehension) or does s/he have mild difficulty understanding compl ex and abstract information? Yes. COMPREHENSION - SCORE: 6-BRI EXPRESSION EXPRESSION: TYPE: Both EXPRESSION - STEP 1: Does the patient require help from a person or device, or need extra time expressing complex and abst ract ideas (such as current events, finances, discharge planning, medical issues, relationships, etc) ? No. EXPRESSION - STEP 2: Does the patient need extra time, require an assistive device (such as augmentive communication syste m or a communication board), OR does s/he have mild difficulty expressing complex and abstract ideas (including mild dysarthria or mild word-find problems)? No. EXPRESSION - SCORE: 7-IND SOCIAL INTERACTION: SOCIAL INTERACTION - STEP 1: Does the patient require a helper to interact with others in social and therapeutic situations? No. SOCIAL INTERACTION - STEP 2: Does the patient need extra time in social situations, OR does s/he interact with staff, other patien ts, and family members ONLY in structured environments, OR does s/he require medication for social in teraction? No. SOCIAL INTERACTION - SCORE: 7-IND PROBLEM SOLVING: PROBLEM SOLVING - STEP 1: Does the patient need help from a person or device, or need extra time to solve complex problems such as managing a checking account or confronting interpersonal problems? No. PROBLEM SOLVING - STEP 2: Does the patient require extra time to make decisions or solve problems, OR does s/he have slight dif ficulty reading, initiating, or self-correcting in unfamiliar situations? No. PROBLEM SOLVING - SCORE: 7-IND MEMORY: MEMORY - STEP 1: Does the patient need help from a person or device, or need extra time to remember frequently encount ered people, daily routines, and executing requests? No. MEMORY - STEP 2: Does the patient have slight difficulty recognizing frequently encountered people, daily routines, or executing requests without the need for repetition or using self-initiated or environmental cues to remember? No. MEMORY - SCORE: 7-IND
[2018-10-29] MEDS: SOTALOL HCL 80 MG TAB PO SCH ×2 (05:01→16:59)
[2018-10-29] MEDS: PROMETHAZINE 25 MG/ML VIAL IV PRN ×4 (05:59→22:44)
[2018-10-29] MEDS: PANTOPRAZOLE 40MG TABLET PO SCH (06:34)
[2018-10-29] MEDS: predniSONE 20 MG TAB PO SCH (08:00)
[2018-10-29] MEDS: PROMOD 30 ML DOSE PO SCH ×2 (08:00→20:00)
[2018-10-29] MEDS: MULTIVITAMIN TAB PO SCH (08:00)
[2018-10-29] MEDS: POLYETHYL GLY 3350 17 GM/DOSE PO SCH (08:00)
[2018-10-29] MEDS: DOCUSATE NA/SENNA CONC 1 TAB PO SCH ×2 (08:00→20:38)
[2018-10-29] MEDS: FERROUS SULFATE 325 MG TAB PO SCH (08:00)
[2018-10-29] MEDS: HYDROCODONE/APAP 10/325 TAB PO PRN (08:25)
[2018-10-29] MEDS: FE SULF/FA/VIT B COMP & C TAB PO SCH (08:32)
[2018-10-29] MEDS: FOLIC ACID 1 MG TABLET PO SCH (08:32)
[2018-10-29] MEDS: DULOXETINE 30 MG CAP PO SCH (08:32)
[2018-10-29] MEDS: SPIRONOLACTONE 25 MG TABLET PO SCH ×2 (08:33→20:00)
--- NOTE | 2018-10-29 13:56 | FAST ---
SHIFT START DATE/TIME: 10/29/2018 07:00 ([employer]IPPING C[employer]TER AND WINDER) SHIFT END DATE/TIME: 10/29/2018 19:00 ([employer]IP[employer]ER) NAME TENA ESTRADA DATE OF : 1960 DATE OF ADMISSION: 10/21/2018 22:32 ([employer]) PHONE: AGE: 57 SSN# [id number] GENDER: Male ENCOUNTER PHYSICIAN: Dr. Jesus Chandler M.D. ADMISSION DIAGNOSIS: - Debility 16 - Debility (16) SMALL BOWEL OBSTRUCTION. EATING: EATING - STEP 1: Does the patient complete his/her own tube feeding after the tray is presented (containing equipment, utensils, and supplement) Yes. EATING - STEP 2: Does the patient require the assistance of a helper? No, patient only requires an assistive device, O R s/he takes more than reasonable time to eat, OR there is a safety concern, OR s/he requires modifie d food consistency EATING - SCORE: 6-BRI GROOMING: Comb/brush hair Patient shaved Wash, rinse, and dry face Wash, rinse, and dry hands GROOMING - STEP 1: Does the patient require the assistance of a person or device, or need extra time when grooming? Yes. GROOMING - STEP 2: Does the patient require the assistance of a helper? No. The patient only requires an assistive devic e, OR takes more than reasonable time to groom, OR there is a concern for safety as the patient groom s GROOMING - SCORE: 6-BRI BATHING: Activity did not occur on this shift BATHING - SCORE: 0-UNK DRESSING - UPPER BODY: Activity did not occur on this shift ARTICLES SCORE Total number of steps: 0 DRESSING - UPPER BODY - SCORE: 0-UNK DRESSING - LOWER BODY: Activity did not occur on this shift ARTICLES SCORE Total number of steps: 0 DRESSING - LOWER BODY - SCORE: 0-UNK TOILETING: Activity did not occur on this shift TOILETING - SCORE: 0-UNK BLADDER MANAGEMENT: BLADDER MANAGEMENT - STEP 1: Does the patient control the bladder completely and intentionally without equipment or devices or med ications, and is always continent? No. BLADDER MANAGEMENT - STEP 2: Does the patient require the assistance of a helper? No, patient requires and independently uses an a ssistive device, such as a urinal, bedpan, bedside commode, catheter, absorbent pad, or collecting de vice BLADDER MANAGEMENT - SCORE: 6-BRI BOWEL MANAGEMENT: Activity did not occur on this shift BOWEL MANAGEMENT - SCORE: 7-IND BOWEL MANAGEMENT - FREQUENCY OF ACCIDENTS: BOWEL MANAGEMENT(FA) - STEP 1: How many accidents has the patient had during the current shift? 0 TRANSFERS: BED, CHAIR, WHEELCHAIR: TRANSFERS: BED, CHAIR, WHEELCHAIR - STEP 1: Does the patient require assitance of a person or device, or need extra time with bed, chair, or whee lchair transfers? Yes. TRANSFERS: BED, CHAIR, WHEELCHAIR - STEP 2: Does the patient require the assistance of a helper? Yes. TRANSFERS: BED, CHAIR, WHEELCHAIR - STEP 3: How much assistance does the patient require from the helper? Only supervision TRANSFERS: BED, CHAIR, WHEELCHAIR - SCORE: 5-SUP TRANSFERS: TOILET: TRANSFERS: TOILET - STEP 1: Does the patient require the assistance of a person or device, or need extra time with toilet transfe rs? Yes. TRANSFERS: TOILET - STEP 2: Does the patient require the assistance of a helper? Yes. TRANSFERS: TOILET - STEP 3: How much assistance does the patient require from the helper? Patient performs half or more of the tr ansferring tasks TRANSFERS: TOILET - STEP 4: Does the patient need only incidental help such as contact guard or steadying during toilet transfer? Yes. TRANSFERS: TOILET - SCORE: 4-MIN TRANSFERS: SHOWER: Activity did not occur on this shift TRANSFERS: SHOWER - SCORE: 0-UNK TRANSFERS: TUB: Activity did not occur on this shift TRANSFERS: TUB - SCORE: 0-UNK LOCOMOTION: WALK: Activity did not occur on this shift LOCOMOTION: WALK - SCORE: 0-UNK LOCOMOTION: WHEELCHAIR: LOCOMOTION: WHEELCHAIR - STEP 1: Does the patient need help to go 150 feet in a wheelchair? Yes. LOCOMOTION: WHEELCHAIR - STEP 2: How much assistance does the patient need from the helper? Only supervision, cuing, or coaxing LOCOMOTION: WHEELCHAIR - SCORE: 5-SUP COMPREHENSION: COMPREHENSION: TYPE: Both COMPREHENSION - STEP 1: Does the patient require help from a person or device, or need extra time to understand complex and a bstract ideas (such as current events, finances, discharge planning, medical issues, relationships, e tc)? No. COMPREHENSION - STEP 2: Does the patient need extra time, require an assistive device (such as glasses for visual comprehensi on or a hearing aid for auditory comprehension) or does s/he have mild difficulty understanding compl ex and abstract information? Yes. COMPREHENSION - SCORE: 6-BRI EXPRESSION EXPRESSION: TYPE: Both EXPRESSION - STEP 1: Does the patient require help from a person or device, or need extra time expressing complex and abst ract ideas (such as current events, finances, discharge planning, medical issues, relationships, etc) ? No. EXPRESSION - STEP 2: Does the patient need extra time, require an assistive device (such as augmentive communication syste m or a communication board), OR does s/he have mild difficulty expressing complex and abstract ideas (including mild dysarthria or mild word-find problems)? Yes. EXPRESSION - SCORE: 6-BRI SOCIAL INTERACTION: SOCIAL INTERACTION - STEP 1: Does the patient require a helper to interact with others in social and therapeutic situations? No. SOCIAL INTERACTION - STEP 2: Does the patient need extra time in social situations, OR does s/he interact with staff, other patien ts, and family members ONLY in structured environments, OR does s/he require medication for social in teraction? Yes, patient needs extra time SOCIAL INTERACTION - SCORE: 6-BRI PROBLEM SOLVING: PROBLEM SOLVING - STEP 1: Does the patient need help from a person or device, or need extra time to solve complex problems such as managing a checking account or confronting interpersonal problems? No. PROBLEM SOLVING - STEP 2: Does the patient require extra time to make decisions or solve problems, OR does s/he have slight dif ficulty reading, initiating, or self-correcting in unfamiliar situations? Yes, patient needs extra ti me. PROBLEM SOLVING - SCORE: 6-BRI MEMORY: MEMORY - STEP 1: Does the patient need help from a person or device, or need extra time to remember frequently encount ered people, daily routines, and executing requests? No. MEMORY - STEP 2: Does the patient have slight difficulty recognizing frequently encountered people, daily routines, or executing requests without the need for repetition or using self-initiated or environmental cues to remember? Yes. MEMORY - SCORE: 6-BRI SIGNATURE PANEL: The following modified sections: Eating - Score, Grooming - Score, Bathing - Score, Dressing - Upper Body - Score, Dressing - Lower Body - Score, Toileting - Score, Bladder Management - Score, Bowel Man agement - Score, Transfers: Bed, Chair, Wheelchair - Score, Transfers: Toilet - Score, Transfers: Ivon wer - Score, Transfers: Tub - Score, Locomotion: Walk - Score, Locomotion: Wheelchair - Score, Compre hension - Score, Expression - Score, Social Interaction - Score, Problem Solving - Score, Memory - Sc ore were [electronically] signed by Kylie Toussaint C.N.A. on WedOct 29 2018 13:56:04 GMT-0600 ([facility] Standard Time)
[2018-10-29] MEDS: RIVAROXABAN 20 MG TABLET PO SCH (16:03)
--- NOTE | 2018-10-29 17:51 | PN ---
Date of Progress Note: 10/29/2018 Subjective: The patient was seen this morning for followup. No new complaints or problems reported by patient. He was sitting in his wheelchair. Denied any complaints except some swelling of hands a nd legs, which is slowly improving with spironolactone. Has some nausea, which is under better contr ol with higher dose of promethazine. He is denying any abdominal pain. No vomiting. Objective: Vital signs: Reviewed. HEENT: Unremarkable. Lungs: Clear to auscultation. No rhonchi or rales. Heart: Sounds normal. Abdomen: Soft. Bowel sounds normal. No guarding, rigidity, tenderness, distention. Extremities: Bilateral grade 1 pedal edema and trace edema of dorsum hand. Impression: 1.Leg edema. 2.Hypertension. 3.Paroxysmal atrial fibrillation. 4.Debility. 5.Generalized weakness. Plan: We will continue current medication including spironolactone 25 mg twice a day. He reports ta emma 50 mg twice a day at home and will consider to increase dose in next few days, but we will defin itely add chlorthalidone 25 mg daily as of tomorrow. Continue other current medications. I will see him tomorrow for followup. JORDAN/MODL Voice ID: [id number] Report ID: [id number]
--- NOTE | 2018-10-30 02:16 | FAST ---
SHIFT START DATE/TIME: 10/29/2018 19:00 (MERCHANDISE STOCKER) SHIFT END DATE/TIME: 10/30/2018 07:00 (MERCH[employer]ISE STOCKER) NAME TENA ESTRADA DATE OF : 1960 DATE OF ADMISSION: 10/21/2018 22:32 (MERCHANDISE STOCKER) PHONE: AGE: 57 SSN# [id number] GENDER: Male ENCOUNTER PHYSICIAN: Dr. Jesus Chandler M.D. ADMISSION DIAGNOSIS: - Debility 16 - Debility (16) SMALL BOWEL OBSTRUCTION. EATING: Activity did not occur on this shift EATING - SCORE: 0-UNK GROOMING: Oral care GROOMING - STEP 1: Does the patient require the assistance of a person or device, or need extra time when grooming? Yes. GROOMING - STEP 2: Does the patient require the assistance of a helper? Yes. GROOMING - STEP 3: How much assistance does the patient require from the helper? Only prior equipment preparation/set up from the helper GROOMING - SCORE: 5-SUP BATHING: Activity did not occur on this shift BATHING - SCORE: 0-UNK DRESSING - UPPER BODY: Patient is not dressing in public clothing ARTICLES SCORE Total number of steps: 0 DRESSING - UPPER BODY - SCORE: 0-UNK DRESSING - LOWER BODY: Patient is not dressing in public clothing ARTICLES SCORE Total number of steps: 0 DRESSING - LOWER BODY - SCORE: 0-UNK TOILETING: TOILETING - STEP 1: Does the patient require the assistance of a person or device, or need extra time with toileting? Yes . TOILETING - STEP 2: Does the patient require the assistance of a helper? Yes. TOILETING - STEP 3: How much assistance does the patient require from the helper? Only supervision TOILETING - SCORE: 5-SUP BLADDER MANAGEMENT: BLADDER MANAGEMENT - STEP 1: Does the patient control the bladder completely and intentionally without equipment or devices or med ications, and is always continent? No. BLADDER MANAGEMENT - STEP 2: Does the patient require the assistance of a helper? Yes. BLADDER MANAGEMENT - STEP 3: How much assistance does the patient require from the helper? Only set-up of equipment - such as plac ing it within reach of the patient or emptying a device - to maintain either satisfactory voiding pat tern or managing an external device, such as an absorbent pad, ileal device, or catheter BLADDER MANAGEMENT - SCORE: 5-SUP BOWEL MANAGEMENT: Activity did not occur on this shift BOWEL MANAGEMENT - SCORE: 7-IND TRANSFERS: BED, CHAIR, WHEELCHAIR: Activity did not occur on this shift TRANSFERS: BED, CHAIR, WHEELCHAIR - SCORE: 0-UNK TRANSFERS: TOILET: Activity did not occur on this shift TRANSFERS: TOILET - SCORE: 0-UNK TRANSFERS: SHOWER: Activity did not occur on this shift TRANSFERS: SHOWER - SCORE: 0-UNK TRANSFERS: TUB: Activity did not occur on this shift TRANSFERS: TUB - SCORE: 0-UNK LOCOMOTION: WALK: Activity did not occur on this shift LOCOMOTION: WALK - SCORE: 0-UNK LOCOMOTION: WHEELCHAIR: Activity did not occur on this shift LOCOMOTION: WHEELCHAIR - SCORE: 0-UNK COMPREHENSION: COMPREHENSION: TYPE: Both COMPREHENSION - STEP 1: Does the patient require help from a person or device, or need extra time to understand complex and a bstract ideas (such as current events, finances, discharge planning, medical issues, relationships, e tc)? No. COMPREHENSION - STEP 2: Does the patient need extra time, require an assistive device (such as glasses for visual comprehensi on or a hearing aid for auditory comprehension) or does s/he have mild difficulty understanding compl ex and abstract information? Yes. COMPREHENSION - SCORE: 6-BRI EXPRESSION EXPRESSION: TYPE: Both EXPRESSION - STEP 1: Does the patient require help from a person or device, or need extra time expressing complex and abst ract ideas (such as current events, finances, discharge planning, medical issues, relationships, etc) ? No. EXPRESSION - STEP 2: Does the patient need extra time, require an assistive device (such as augmentive communication syste m or a communication board), OR does s/he have mild difficulty expressing complex and abstract ideas (including mild dysarthria or mild word-find problems)? No. EXPRESSION - SCORE: 7-IND SOCIAL INTERACTION: SOCIAL INTERACTION - STEP 1: Does the patient require a helper to interact with others in social and therapeutic situations? No. SOCIAL INTERACTION - STEP 2: Does the patient need extra time in social situations, OR does s/he interact with staff, other patien ts, and family members ONLY in structured environments, OR does s/he require medication for social in teraction? No. SOCIAL INTERACTION - SCORE: 7-IND PROBLEM SOLVING: PROBLEM SOLVING - STEP 1: Does the patient need help from a person or device, or need extra time to solve complex problems such as managing a checking account or confronting interpersonal problems? No. PROBLEM SOLVING - STEP 2: Does the patient require extra time to make decisions or solve problems, OR does s/he have slight dif ficulty reading, initiating, or self-correcting in unfamiliar situations? No. PROBLEM SOLVING - SCORE: 7-IND MEMORY: MEMORY - STEP 1: Does the patient need help from a person or device, or need extra time to remember frequently encount ered people, daily routines, and executing requests? No. MEMORY - STEP 2: Does the patient have slight difficulty recognizing frequently encountered people, daily routines, or executing requests without the need for repetition or using self-initiated or environmental cues to remember? No. MEMORY - SCORE: 7-IND
[2018-10-30] MEDS: HYDROCODONE/APAP 10/325 TAB PO PRN ×3 (05:06→22:17)
[2018-10-30] MEDS: PROMETHAZINE 25 MG/ML VIAL IV PRN ×4 (05:06→22:10)
[2018-10-30] MEDS: SOTALOL HCL 80 MG TAB PO SCH ×2 (05:06→16:59)
[2018-10-30] MEDS: PANTOPRAZOLE 40MG TABLET PO SCH (06:38)
[2018-10-30] MEDS: CHLORTHALIDONE 25 MG TAB PO SCH (07:57)
[2018-10-30] MEDS: FE SULF/FA/VIT B COMP & C TAB PO SCH (07:57)
[2018-10-30] MEDS: FERROUS SULFATE 325 MG TAB PO SCH (07:58)
[2018-10-30] MEDS: FOLIC ACID 1 MG TABLET PO SCH (07:58)
[2018-10-30] MEDS: PROMOD 30 ML DOSE PO SCH ×2 (07:58→19:48)
[2018-10-30] MEDS: DULOXETINE 30 MG CAP PO SCH (07:58)
[2018-10-30] MEDS: predniSONE 20 MG TAB PO SCH (07:58)
[2018-10-30] MEDS: DOCUSATE NA/SENNA CONC 1 TAB PO SCH ×2 (07:58→19:48)
[2018-10-30] MEDS: MULTIVITAMIN TAB PO SCH (07:58)
[2018-10-30] MEDS: POLYETHYL GLY 3350 17 GM/DOSE PO SCH (07:58)
[2018-10-30] MEDS: SPIRONOLACTONE 25 MG TABLET PO SCH ×2 (07:58→19:47)
[2018-10-30] MEDS: ONDANSETRON 4 MG (ODT) TAB PO PRN (08:26)
[2018-10-30] MEDS: RIVAROXABAN 20 MG TABLET PO SCH (16:08)
--- NOTE | 2018-10-30 17:15 | FAST ---
SHIFT START DATE/TIME: 10/30/2018 07:00 (PROP WORKER) SHIFT END DATE/TIME: 10/30/2018 19:00 (PROP WORKER) NAME TENA ESTRADA DATE OF : 1960 DATE OF ADMISSION: 10/21/2018 22:32 (PROP WORKER) PHONE: AGE: 57 SSN# [id number] GENDER: Male ENCOUNTER PHYSICIAN: Dr. Jesus Chandler M.D. ADMISSION DIAGNOSIS: - Debility 16 - Debility (16) SMALL BOWEL OBSTRUCTION. EATING: EATING - STEP 1: Does the patient require the assistance of a person or device, or need extra time when eating? Yes. EATING - STEP 2: Does the patient require the assistance of a helper? No, patient only requires an assistive device, O R s/he takes more than reasonable time to eat, OR there is a safety concern, OR s/he requires modifie d food consistency EATING - SCORE: 6-BRI GROOMING: Activity did not occur on this shift GROOMING - SCORE: 0-UNK BATHING: Activity did not occur on this shift BATHING - SCORE: 0-UNK DRESSING - UPPER BODY: Activity did not occur on this shift ARTICLES SCORE Total number of steps: 0 DRESSING - UPPER BODY - SCORE: 0-UNK DRESSING - LOWER BODY: Activity did not occur on this shift ARTICLES SCORE Total number of steps: 0 DRESSING - LOWER BODY - SCORE: 0-UNK TOILETING: TOILETING - STEP 1: Does the patient require the assistance of a person or device, or need extra time with toileting? Yes . TOILETING - STEP 2: Does the patient require the assistance of a helper? Yes. TOILETING - STEP 3: How much assistance does the patient require from the helper? Only supervision TOILETING - SCORE: 5-SUP BLADDER MANAGEMENT: BLADDER MANAGEMENT - STEP 1: Does the patient control the bladder completely and intentionally without equipment or devices or med ications, and is always continent? Yes. BLADDER MANAGEMENT - SCORE: 7-IND BLADDER MANAGEMENT - FREQUENCY OF ACCIDENTS: BLADDER MANAGEMENT(FA) - STEP 1: How many accidents has the patient had during the current shift? 0 BOWEL MANAGEMENT: BOWEL MANAGEMENT - STEP 1: Does the patient control bowels completely and intentionally without equipment devices or medications AND is always continent? No. BOWEL MANAGEMENT - STEP 2: Does the patient require the assistance of a helper? No, patient requires medication for control such as stool softeners, suppositories, laxatives, enemas, or OTC medications BOWEL MANAGEMENT - SCORE: 6-BRI BOWEL MANAGEMENT - FREQUENCY OF ACCIDENTS: BOWEL MANAGEMENT(FA) - STEP 1: How many accidents has the patient had during the current shift? 0 TRANSFERS: BED, CHAIR, WHEELCHAIR: TRANSFERS: BED, CHAIR, WHEELCHAIR - STEP 1: Does the patient require assitance of a person or device, or need extra time with bed, chair, or whee lchair transfers? Yes. TRANSFERS: BED, CHAIR, WHEELCHAIR - STEP 2: Does the patient require the assistance of a helper? Yes. TRANSFERS: BED, CHAIR, WHEELCHAIR - STEP 3: How much assistance does the patient require from the helper? Only supervision TRANSFERS: BED, CHAIR, WHEELCHAIR - SCORE: 5-SUP TRANSFERS: TOILET: TRANSFERS: TOILET - STEP 1: Does the patient require the assistance of a person or device, or need extra time with toilet transfe rs? Yes. TRANSFERS: TOILET - STEP 2: Does the patient require the assistance of a helper? Yes. TRANSFERS: TOILET - STEP 3: How much assistance does the patient require from the helper? Patient performs half or more of the tr ansferring tasks TRANSFERS: TOILET - STEP 4: Does the patient need only incidental help such as contact guard or steadying during toilet transfer? Yes. TRANSFERS: TOILET - SCORE: 4-MIN TRANSFERS: SHOWER: Activity did not occur on this shift TRANSFERS: SHOWER - SCORE: 0-UNK TRANSFERS: TUB: Activity did not occur on this shift TRANSFERS: TUB - SCORE: 0-UNK LOCOMOTION: WALK: Activity did not occur on this shift LOCOMOTION: WALK - SCORE: 0-UNK LOCOMOTION: WHEELCHAIR: Activity did not occur on this shift LOCOMOTION: WHEELCHAIR - SCORE: 0-UNK COMPREHENSION: COMPREHENSION: TYPE: Both COMPREHENSION - STEP 1: Does the patient require help from a person or device, or need extra time to understand complex and a bstract ideas (such as current events, finances, discharge planning, medical issues, relationships, e tc)? No. COMPREHENSION - STEP 2: Does the patient need extra time, require an assistive device (such as glasses for visual comprehensi on or a hearing aid for auditory comprehension) or does s/he have mild difficulty understanding compl ex and abstract information? Yes. COMPREHENSION - SCORE: 6-BRI EXPRESSION EXPRESSION: TYPE: Both EXPRESSION - STEP 1: Does the patient require help from a person or device, or need extra time expressing complex and abst ract ideas (such as current events, finances, discharge planning, medical issues, relationships, etc) ? No. EXPRESSION - STEP 2: Does the patient need extra time, require an assistive device (such as augmentive communication syste m or a communication board), OR does s/he have mild difficulty expressing complex and abstract ideas (including mild dysarthria or mild word-find problems)? Yes. EXPRESSION - SCORE: 6-BRI SOCIAL INTERACTION: SOCIAL INTERACTION - STEP 1: Does the patient require a helper to interact with others in social and therapeutic situations? No. SOCIAL INTERACTION - STEP 2: Does the patient need extra time in social situations, OR does s/he interact with staff, other patien ts, and family members ONLY in structured environments, OR does s/he require medication for social in teraction? Yes, patient needs extra time SOCIAL INTERACTION - SCORE: 6-BRI PROBLEM SOLVING: PROBLEM SOLVING - STEP 1: Does the patient need help from a person or device, or need extra time to solve complex problems such as managing a checking account or confronting interpersonal problems? No. PROBLEM SOLVING - STEP 2: Does the patient require extra time to make decisions or solve problems, OR does s/he have slight dif ficulty reading, initiating, or self-correcting in unfamiliar situations? Yes, patient needs extra ti me. PROBLEM SOLVING - SCORE: 6-BRI MEMORY: MEMORY - STEP 1: Does the patient need help from a person or device, or need extra time to remember frequently encount ered people, daily routines, and executing requests? No. MEMORY - STEP 2: Does the patient have slight difficulty recognizing frequently encountered people, daily routines, or executing requests without the need for repetition or using self-initiated or environmental cues to remember? Yes. MEMORY - SCORE: 6-BRI SIGNATURE PANEL: The following modified sections: Eating - Score, Grooming - Score, Bathing - Score, Dressing - Upper Body - Score, Dressing - Lower Body - Score, Toileting - Score, Bladder Management - Score, Bowel Man agement - Score, Transfers: Bed, Chair, Wheelchair - Score, Transfers: Toilet - Score, Transfers: Ivon wer - Score, Transfers: Tub - Score, Locomotion: Walk - Score, Locomotion: Wheelchair - Score, Compre hension - Score, Expression - Score, Social Interaction - Score, Problem Solving - Score, Memory - Sc ore were [electronically] signed by Kylie Toussaint C.N.A. on WedOct 30 2018 17:14:29 GMT-0600 ([facility] Standard Time)
--- NOTE | 2018-10-30 22:58 | PN ---
Date of Progress Note: 10/30/2018 Subjective: The patient was seen this morning for followup. No new complaints or problems reported by him. Lying in bed, not in distress. Objective: Vital Signs: Reviewed. HEENT: Unremarkable. Lungs: Clear to auscultation. No rhonchi or rales. Heart: Sounds normal. Abdomen: Soft, bowel sounds normal. No guarding, rigidity, tenderness, or distention. Extremities: Bilateral hand edema, overall it is better today than last few days. Impression: 1.Leg edema. 2.Paroxysmal atrial fibrillation. 3.Hypertension. 4.Debility. 5.Generalized weakness. 6.Chronic steroid therapy. 7.Chronic anticoagulation therapy. Plan: We will continue current medications. As of today, patient will start to have his chlorthalid one along with his spironolactone. We will continue sotalol and Xarelto. He is on prednisone 20 mg daily and starting tomorrow we will reduce dose to 15 mg daily. He is scheduled to go home on which is day after tomorrow and he has appointment to see his surgeon for removal of donavon on Wed. JORDAN/MODL Voice ID: [id number] Report ID: [id number]
--- NOTE | 2018-10-31 02:36 | FAST ---
SHIFT START DATE/TIME: 10/30/2018 19:00 (CLINICAL TRIAL ASSISTANT) SHIFT END DATE/TIME: 10/31/2018 07:00 (CLINICAL TRIAL ASSISTANT) NAME TENA ESTRADA DATE OF : 1960 DATE OF ADMISSION: 10/21/2018 22:32 (CLINICAL TRIAL ASSISTANT) PHONE: AGE: 57 SSN# [id number] GENDER: Male ENCOUNTER PHYSICIAN: Dr. Jesus Chandler M.D. ADMISSION DIAGNOSIS: - Debility 16 - Debility (16) SMALL BOWEL OBSTRUCTION. EATING: Activity did not occur on this shift EATING - SCORE: 0-UNK GROOMING: Activity did not occur on this shift GROOMING - SCORE: 0-UNK BATHING: Activity did not occur on this shift BATHING - SCORE: 0-UNK DRESSING - UPPER BODY: Patient is not dressing in public clothing ARTICLES SCORE Total number of steps: 0 DRESSING - UPPER BODY - SCORE: 0-UNK DRESSING - LOWER BODY: Patient is not dressing in public clothing ARTICLES SCORE Total number of steps: 0 DRESSING - LOWER BODY - SCORE: 0-UNK TOILETING: TOILETING - STEP 1: Does the patient require the assistance of a person or device, or need extra time with toileting? Yes . TOILETING - STEP 2: Does the patient require the assistance of a helper? Yes. TOILETING - STEP 3: How much assistance does the patient require from the helper? Only supervision TOILETING - SCORE: 5-SUP BLADDER MANAGEMENT: BLADDER MANAGEMENT - STEP 1: Does the patient control the bladder completely and intentionally without equipment or devices or med ications, and is always continent? No. BLADDER MANAGEMENT - STEP 2: Does the patient require the assistance of a helper? No, patient only requires extra time BLADDER MANAGEMENT - SCORE: 6-BRI BOWEL MANAGEMENT: Activity did not occur on this shift BOWEL MANAGEMENT - SCORE: 7-IND TRANSFERS: BED, CHAIR, WHEELCHAIR: Activity did not occur on this shift TRANSFERS: BED, CHAIR, WHEELCHAIR - SCORE: 0-UNK TRANSFERS: TOILET: Activity did not occur on this shift TRANSFERS: TOILET - SCORE: 0-UNK TRANSFERS: SHOWER: Activity did not occur on this shift TRANSFERS: SHOWER - SCORE: 0-UNK TRANSFERS: TUB: Activity did not occur on this shift TRANSFERS: TUB - SCORE: 0-UNK LOCOMOTION: WALK: Activity did not occur on this shift LOCOMOTION: WALK - SCORE: 0-UNK LOCOMOTION: WHEELCHAIR: Activity did not occur on this shift LOCOMOTION: WHEELCHAIR - SCORE: 0-UNK COMPREHENSION: COMPREHENSION: TYPE: Both COMPREHENSION - STEP 1: Does the patient require help from a person or device, or need extra time to understand complex and a bstract ideas (such as current events, finances, discharge planning, medical issues, relationships, e tc)? No. COMPREHENSION - STEP 2: Does the patient need extra time, require an assistive device (such as glasses for visual comprehensi on or a hearing aid for auditory comprehension) or does s/he have mild difficulty understanding compl ex and abstract information? Yes. COMPREHENSION - SCORE: 6-BRI EXPRESSION EXPRESSION: TYPE: Both EXPRESSION - STEP 1: Does the patient require help from a person or device, or need extra time expressing complex and abst ract ideas (such as current events, finances, discharge planning, medical issues, relationships, etc) ? No. EXPRESSION - STEP 2: Does the patient need extra time, require an assistive device (such as augmentive communication syste m or a communication board), OR does s/he have mild difficulty expressing complex and abstract ideas (including mild dysarthria or mild word-find problems)? No. EXPRESSION - SCORE: 7-IND SOCIAL INTERACTION: SOCIAL INTERACTION - STEP 1: Does the patient require a helper to interact with others in social and therapeutic situations? No. SOCIAL INTERACTION - STEP 2: Does the patient need extra time in social situations, OR does s/he interact with staff, other patien ts, and family members ONLY in structured environments, OR does s/he require medication for social in teraction? No. SOCIAL INTERACTION - SCORE: 7-IND PROBLEM SOLVING: PROBLEM SOLVING - STEP 1: Does the patient need help from a person or device, or need extra time to solve complex problems such as managing a checking account or confronting interpersonal problems? No. PROBLEM SOLVING - STEP 2: Does the patient require extra time to make decisions or solve problems, OR does s/he have slight dif ficulty reading, initiating, or self-correcting in unfamiliar situations? Yes, patient needs extra ti me. PROBLEM SOLVING - SCORE: 6-BRI MEMORY: MEMORY - STEP 1: Does the patient need help from a person or device, or need extra time to remember frequently encount ered people, daily routines, and executing requests? No. MEMORY - STEP 2: Does the patient have slight difficulty recognizing frequently encountered people, daily routines, or executing requests without the need for repetition or using self-initiated or environmental cues to remember? No. MEMORY - SCORE: 7-IND SIGNATURE PANEL: The following modified sections: Eating - Score, Grooming - Score, Dressing - Upper Body - Score, Rigoberto ssing - Lower Body - Score, Toileting - Score, Bladder Management - Score, Bowel Management - Score, Transfers: Bed, Chair, Wheelchair - Score, Transfers: Toilet - Score, Transfers: Shower - Score, Fraga sfers: Tub - Score, Locomotion: Walk - Score, Locomotion: Wheelchair - Score, Comprehension - Score, Expression - Score, Social Interaction - Score, Problem Solving - Score, Memory - Score were [electro nically] signed by Ciara Crane CNA on WedOct 31 2018 02:36:02 GMT-0600 (Central Standard Time)
[2018-10-31] MEDS: PROMETHAZINE 25 MG/ML VIAL IV PRN ×4 (04:23→22:38)
[2018-10-31] MEDS: HYDROCODONE/APAP 10/325 TAB PO PRN ×2 (04:23→07:53)
[2018-10-31] MEDS: SOTALOL HCL 80 MG TAB PO SCH ×2 (05:24→17:32)
[2018-10-31] MEDS: PANTOPRAZOLE 40MG TABLET PO SCH (05:24)
[2018-10-31] MEDS: CHLORTHALIDONE 25 MG TAB PO SCH (07:46)
[2018-10-31] MEDS: FOLIC ACID 1 MG TABLET PO SCH (07:46)
[2018-10-31] MEDS: DOCUSATE NA/SENNA CONC 1 TAB PO SCH ×2 (07:46→20:48)
[2018-10-31] MEDS: DULOXETINE 30 MG CAP PO SCH (07:46)
[2018-10-31] MEDS: predniSONE 5 MG TAB PO SCH (07:46)
[2018-10-31] MEDS: FE SULF/FA/VIT B COMP & C TAB PO SCH (07:46)
[2018-10-31] MEDS: FERROUS SULFATE 325 MG TAB PO SCH (07:46)
[2018-10-31] MEDS: predniSONE 10 MG TAB PO SCH (07:47)
[2018-10-31] MEDS: MULTIVITAMIN TAB PO SCH (07:47)
[2018-10-31] MEDS: PROMOD 30 ML DOSE PO SCH ×2 (07:47→20:00)
[2018-10-31] MEDS: POLYETHYL GLY 3350 17 GM/DOSE PO SCH (07:47)
[2018-10-31] MEDS: SPIRONOLACTONE 25 MG TABLET PO SCH ×2 (07:47→17:04)
--- NOTE | 2018-10-31 14:01 | FAST ---
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 Jesus Chandler M.D. ADMISSION DIAGNOSIS: - Debility 16 - Debility (16) SMALL BOWEL OBSTRUCTION. EATING: Activity did not occur on this shift EATING - SCORE: 0-UNK GROOMING: Activity did not occur on this shift GROOMING - SCORE: 0-UNK BATHING: Activity did not occur on this shift BATHING - SCORE: 0-UNK DRESSING - UPPER BODY: Activity did not occur on this shift Patient is not dressing in public clothing ARTICLES SCORE Total number of steps: 0 DRESSING - UPPER BODY - SCORE: 0-UNK DRESSING - LOWER BODY: Activity did not occur on this shift Patient is not dressing in public clothing ARTICLES SCORE Total number of steps: 0 DRESSING - LOWER BODY - SCORE: 0-UNK TOILETING: Activity did not occur on this shift TOILETING - SCORE: 0-UNK BLADDER MANAGEMENT: Activity did not occur on this shift BLADDER MANAGEMENT - SCORE: 7-IND BOWEL MANAGEMENT: Activity did not occur on this shift BOWEL MANAGEMENT - SCORE: 7-IND TRANSFERS: BED, CHAIR, WHEELCHAIR: TRANSFERS: BED, CHAIR, WHEELCHAIR - STEP 1: Does the patient require assistance of a person or device, or need extra time with bed, chair, or whe elchair transfers? Yes. TRANSFERS: BED, CHAIR, WHEELCHAIR - STEP 2: Does the patient require the assistance of a helper? No. Patient only requires an assistive device fo r bed, chair, wheelchair transfers such as a sliding board, grab bar, or brace, OR s/he takes more th an reasonable time, OR there is a safety concern when s/he performs the transfers TRANSFERS: BED, CHAIR, WHEELCHAIR - SCORE: 6-BRI TRANSFERS: TOILET: Activity did not occur on this shift TRANSFERS: TOILET - SCORE: 0-UNK TRANSFERS: SHOWER: Activity did not occur on this shift TRANSFERS: SHOWER - SCORE: 0-UNK TRANSFERS: TUB: Activity did not occur on this shift TRANSFERS: TUB - SCORE: 0-UNK LOCOMOTION: WALK: LOCOMOTION: WALK - STEP 1: Does the patient need help from a person or device, or need extra time to walk 150 feet? No. LOCOMOTION: WALK - STEP 2: Does the patient need an assistive device (such as an orthosis, prosthesis, crutches, or walker) to g o 150 feet, OR does s/he take more than reasonable time, OR is there a concern for safety? Yes, the p atient needs an assistive device LOCOMOTION: WALK - SCORE: 6-BRI LOCOMOTION: WHEELCHAIR: LOCOMOTION: WHEELCHAIR - STEP 1: Does the patient need help to go 150 feet in a wheelchair? No. LOCOMOTION: WHEELCHAIR - SCORE: 6-BRI LOCOMOTION: STAIRS: LOCOMOTION: STAIRS - STEP 1: Does the patient need help to go up and down 12 to 14 stairs? No. LOCOMOTION: STAIRS - STEP 2: Does the patient require an assistive device - such as handrails or cane - to go up and down one flig ht of stairs, OR does s/he take more than reasonable time, OR is there a concern for safety? Yes, the patient requires an assistive device LOCOMOTION: STAIRS - SCORE: 6-BRI COMPREHENSION: COMPREHENSION - SCORE: 0-UNK EXPRESSION EXPRESSION - SCORE: 0-UNK SOCIAL INTERACTION: SOCIAL INTERACTION - SCORE: 0-UNK PROBLEM SOLVING: PROBLEM SOLVING - SCORE: 0-UNK MEMORY: MEMORY - SCORE: 0-UNK SIGNATURE PANEL: The following modified sections: Transfers: Bed, Chair, Wheelchair - Score, Transfers: Toilet - Score , Locomotion: Walk - Score, Locomotion: Wheelchair - Score, Locomotion: Stairs - Score were [carter ibarra] signed by Ez Aguirre PT on WedOct 31 2018 14:00:29 GMT-0600 (Central Standard Time)
--- NOTE | 2018-10-31 16:14 | FAST ---
SHIFT START DATE/TIME: 10/31/2018 07:00 (TANK BOTTOM ASSEMBLER) SHIFT END DATE/TIME: 10/31/2018 19:00 (TANK BOTTOM ASSEMBLER) NAME TENA ESTRADA DATE OF : 1960 DATE OF ADMISSION: 10/21/2018 22:32 (TANK BOTTOM ASSEMBLER) PHONE: AGE: 57 SSN# [id number] GENDER: Male ENCOUNTER PHYSICIAN: Dr. Jesus Chandler M.D. ADMISSION DIAGNOSIS: - Debility 16 - Debility (16) SMALL BOWEL OBSTRUCTION. EATING: EATING - STEP 1: Does the patient require the assistance of a person or device, or need extra time when eating? Yes. EATING - STEP 2: Does the patient require the assistance of a helper? No, patient only requires an assistive device, O R s/he takes more than reasonable time to eat, OR there is a safety concern, OR s/he requires modifie d food consistency EATING - SCORE: 6-BRI GROOMING: Activity did not occur on this shift GROOMING - SCORE: 0-UNK BATHING: Activity did not occur on this shift BATHING - SCORE: 0-UNK DRESSING - UPPER BODY: Activity did not occur on this shift ARTICLES SCORE Total number of steps: 0 DRESSING - UPPER BODY - SCORE: 0-UNK DRESSING - LOWER BODY: Activity did not occur on this shift ARTICLES SCORE Total number of steps: 0 DRESSING - LOWER BODY - SCORE: 0-UNK TOILETING: TOILETING - STEP 1: Does the patient require the assistance of a person or device, or need extra time with toileting? Yes . TOILETING - STEP 2: Does the patient require the assistance of a helper? Yes. TOILETING - STEP 3: How much assistance does the patient require from the helper? Only supervision TOILETING - SCORE: 5-SUP BLADDER MANAGEMENT: BLADDER MANAGEMENT - STEP 1: Does the patient control the bladder completely and intentionally without equipment or devices or med ications, and is always continent? No. BLADDER MANAGEMENT - STEP 2: Does the patient require the assistance of a helper? No, patient requires and independently uses an a ssistive device, such as a urinal, bedpan, bedside commode, catheter, absorbent pad, or collecting de vice BLADDER MANAGEMENT - SCORE: 6-BRI BOWEL MANAGEMENT: Activity did not occur on this shift BOWEL MANAGEMENT - SCORE: 7-IND TRANSFERS: BED, CHAIR, WHEELCHAIR: TRANSFERS: BED, CHAIR, WHEELCHAIR - STEP 1: Does the patient require assistance of a person or device, or need extra time with bed, chair, or whe elchair transfers? Yes. TRANSFERS: BED, CHAIR, WHEELCHAIR - STEP 2: Does the patient require the assistance of a helper? Yes. TRANSFERS: BED, CHAIR, WHEELCHAIR - STEP 3: How much assistance does the patient require from the helper? Steadying/guiding assistance TRANSFERS: BED, CHAIR, WHEELCHAIR - SCORE: 4-MIN TRANSFERS: TOILET: TRANSFERS: TOILET - STEP 1: Does the patient require the assistance of a person or device, or need extra time with toilet transfe rs? Yes. TRANSFERS: TOILET - STEP 2: Does the patient require the assistance of a helper? Yes. TRANSFERS: TOILET - STEP 3: How much assistance does the patient require from the helper? Only supervision, cuing, coaxing, OR he lp to set out transfer equipment or to lock brakes and/or lift foot rests TRANSFERS: TOILET - SCORE: 5-SUP TRANSFERS: SHOWER: Activity did not occur on this shift TRANSFERS: SHOWER - SCORE: 0-UNK TRANSFERS: TUB: Activity did not occur on this shift TRANSFERS: TUB - SCORE: 0-UNK LOCOMOTION: WALK: Activity did not occur on this shift LOCOMOTION: WALK - SCORE: 0-UNK LOCOMOTION: WHEELCHAIR: Activity did not occur on this shift LOCOMOTION: WHEELCHAIR - SCORE: 0-UNK COMPREHENSION: COMPREHENSION: TYPE: Both COMPREHENSION - STEP 1: Does the patient require help from a person or device, or need extra time to understand complex and a bstract ideas (such as current events, finances, discharge planning, medical issues, relationships, e tc)? No. COMPREHENSION - STEP 2: Does the patient need extra time, require an assistive device (such as glasses for visual comprehensi on or a hearing aid for auditory comprehension) or does s/he have mild difficulty understanding compl ex and abstract information? Yes. COMPREHENSION - SCORE: 6-BRI EXPRESSION EXPRESSION: TYPE: Both EXPRESSION - STEP 1: Does the patient require help from a person or device, or need extra time expressing complex and abst ract ideas (such as current events, finances, discharge planning, medical issues, relationships, etc) ? No. EXPRESSION - STEP 2: Does the patient need extra time, require an assistive device (such as augmentive communication syste m or a communication board), OR does s/he have mild difficulty expressing complex and abstract ideas (including mild dysarthria or mild word-find problems)? Yes. EXPRESSION - SCORE: 6-BRI SOCIAL INTERACTION: SOCIAL INTERACTION - STEP 1: Does the patient require a helper to interact with others in social and therapeutic situations? No. SOCIAL INTERACTION - STEP 2: Does the patient need extra time in social situations, OR does s/he interact with staff, other patien ts, and family members ONLY in structured environments, OR does s/he require medication for social in teraction? Yes, patient needs extra time SOCIAL INTERACTION - SCORE: 6-BRI PROBLEM SOLVING: PROBLEM SOLVING - STEP 1: Does the patient need help from a person or device, or need extra time to solve complex problems such as managing a checking account or confronting interpersonal problems? No. PROBLEM SOLVING - STEP 2: Does the patient require extra time to make decisions or solve problems, OR does s/he have slight dif ficulty reading, initiating, or self-correcting in unfamiliar situations? Yes, patient needs extra ti me. PROBLEM SOLVING - SCORE: 6-BRI MEMORY: MEMORY - STEP 1: Does the patient need help from a person or device, or need extra time to remember frequently encount ered people, daily routines, and executing requests? Yes. MEMORY - STEP 2: How often does the patient need help to remember frequently encountered people, daily routines, and e xecuting requests? Less than 10% of the time MEMORY - SCORE: 5-SUP SIGNATURE PANEL: The following modified sections: Eating - Score, Grooming - Score, Bathing - Score, Dressing - Upper Body - Score, Dressing - Lower Body - Score, Toileting - Score, Bladder Management - Score, Bowel Man agement - Score, Transfers: Bed, Chair, Wheelchair - Score, Transfers: Toilet - Score, Transfers: Ivon wer - Score, Transfers: Tub - Score, Locomotion: Walk - Score, Locomotion: Wheelchair - Score, Compre hension - Score, Expression - Score, Social Interaction - Score, Problem Solving - Score, Memory - Sc ore were [electronically] signed by Karan Jung on WedOct 31 2018 16:13:14 GMT-0600 (Central Standard Time)
[2018-10-31] MEDS ORDERED: FUROSEMIDE 40 MG/4 ML VIAL IV ONE (17:05)
[2018-10-31] MEDS: RIVAROXABAN 20 MG TABLET PO SCH (17:32)
--- NOTE | 2018-10-31 17:46 | R.PN ---
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 Status post abdominal surgery SUBJECTIVE: Pt denied any Shortness of Breath. Pt denied any depression. Ambulated 1000' with modified independence using a rolling walker. Posterior propelled wheelchair 500 ' with bilateral lower extremities. Up and down 15 steps with modified independence. VITAL SIGNS Temperature: 97.6 F SBP/DBP: 116/71 Pulse: 83 Resp: 15 MEDICATION ALLERGIES: Demerol REMICADE ENVIRONMENTAL ALLERGIES: None Known - Substance Allergies None Known - Other Allergies LATEX NURSING: - Shower allowing shower ACTIVITIES OOB only with supervision THERAPIES: - Occupational Therapy Evaluate and Treat. - Physical Therapy Evaluate and Treat. PHYSICAL EXAM - Gen Alert and awake Lying in bed No apparent distress Oriented to: person, time, and place - Skin Healing surgical wound in the abdomen. - Eyes No abnormalities - ENMT No abnormalities - Neck No abnormalities - CVS RRR - Chest Incision is healing with good hemostasis. - Resp No wheezing - Abd +bowel sounds - GI Obese Deferred - No abnormalities - Ext Mild bilateral lower extremity edema. - MSK 4+/5 weakness in both lower extremities. - Neuro 4/5 strength bilaterally upper and lower extremities. - Psych No abnormalities ASSESSMENT: Pt. is a 57 yo Right-handed white male.On 10/05/2018 he was admitted to [facility] with diagno sis SMALL BOWEL OBSTRUCTION.His impairment category is Debility 16 - Debility (16).Pre-morbidly, Pt. was independent/mod-I in Communication, Social Cognition, Self-Care, Locomotion, Sphincter Control, and Transfers Control; and he had good Sphincter Control.Currently, he has deficits of Balance, Self- Care, Locomotion, Endurance, Safety Awareness, and Transfers Control.Pt. is now referred to [facility] for acute in-patient rehabilitation in order to maximize patient's functiona l independence in activities of daily living, strength, ROM, and mobility.- Rehab Goal Patient has realistic goal of being discharged at assistance level 6-Erasmo to reside at Home with Fam james/Relatives. MDM/PLAN: - Physical Therapy Gait dysfunction - to improve, our physical therapists will perform initial evaluation of pt's statu s upon admission and devise an individualized program for Gait Training, and Wheel Chair mobility Inability to transfer - to improve, our physical therapists will perform initial evaluation of pt's status upon admission and devise an individualized program for Bed mobility Need for home safety evaluation - to improve, our physical therapists will perform initial evaluatio n of pt's status upon admission and devise an individualized program for Home Evaluation Need in caregiver upon discharge - to improve, our physical therapists will perform initial evaluati on of pt's status upon admission and devise an individualized program for Caregiver Training Edema - to improve, our physical therapists will perform initial evaluation of pt's status upon admi ssion and devise an individualized program for Elevation Training, and Lymphedema Therapy New precaution - to improve, our physical therapists will perform initial evaluation of pt's status upon admission and devise an individualized program for Patient precaution education Having wound - to improve, our physical therapists will perform initial evaluation of pt's status up on admission and devise an individualized program for Wound Care Poor balance - to improve, our physical therapists will perform initial evaluation of pt's status up on admission and devise an individualized program for Balance Training Poor endurance - to improve, our physical therapists will perform initial evaluation of pt's status upon admission and devise an individualized program for Endurance Training Weakness - to improve, our physical therapists will perform initial evaluation of pt's status upon a dmission and devise an individualized program for Aquatic Therapy, Neuromuscular Reeducation, and Str engthening Achieving independence - to improve, our physical therapists will perform initial evaluation of pt's status upon admission and devise an individualized program for Community Reintegration Activities - Occupational Therapy ADL deficits - to improve, our occupation therapists will perform initial evaluation of pt's status upon admission and devise an individualized program for Bathing, Bed mobility, Community Reintegratio n, Cooking, Dressing, Eating, Fine Motor Skills, Grooming, Homemaking, Kitchen Mobility, Laundry, Pat ient Education, Safety Awareness, Splinting - Positioning, Transfers(Toilet, Tub, Shower), and Wheel Chair Management Need for complex care nurse - to improve, our occupation therapists will perform initial evaluation of pt's status upon admission and devise an individualized program for Caregiver Training Weakness - to improve, our occupation therapists will perform initial evaluation of pt's status upon admission and devise an individualized program for Aquatic Therapy, Balance, Endurance, UE ROM, and UE strengthening - Diet Type Continue BARIATRIC FULLS - Diet - Liquid Texture Continue Regular - Tube Feed Continue N/A - Diet - Solid Texture Continue Regular - Shower allowing shower FUNCTIONAL STATUS: UPDATED AT WEEKLY TEAM CONFERENCE - Bladder Same accident frequency: 7-Ind - No accidents in the past 7 days - Bowel Same accident frequency: 7-Ind - No accidents in the past 7 days - Walking Same score based on distance walked: 3(>=150ft) - Wheelchair Same score based on distance traveled: 0(N/A) FUNCTIONAL STATUS: - Self-Care A. Eating sup B. Grooming sup C. Bathing sup D. Dressing - Upper sup E. Dressing - Lower sup F. Toileting Dep - Sphincter Control G: Bladder control Dep H: Bowel control Ind - Transfers Control I. Bed/Chair/Wheelchair sup J. Toilet Lila K. Tub/Shower Ind - Locomotion L. Walk/Wheelchair (C) Lila L. Walk/Wheelchair (W) Lila M. Stairs ADNO - Communication N. Comprehension (B) Ind O. Expression (B) Ind - Social Cognition P. Social Interaction Ind Q. Problem Solving Ind R. Memory Ind - Endurance Fair - Balance Fair - Safety Awareness Fair CURRENT FUNC. DEFICITS: Balance, Self-Care, Locomotion, Endurance, Safety Awareness, and Transfers Control SIGNATURE PANEL: ([facility])
--- NOTE | 2018-11-01 00:44 | PN ---
Date of Progress Note: 10/31/2018 Subjective: The patient was seen this morning for followup. He was lying in bed, not in any distres s. No new complaints or problems reported except continues to have leg swelling and this afternoon jacqueline claire had called me per patient's request for IV Lasix order because he was having more leg swelling a s the day progressed today. Objective: Vital Signs: Reviewed. HEENT Examination: Unremarkable. Lungs: Clear to auscultation. No rhonchi or rales. Heart: Sounds normal. Abdomen: Soft. Bowel sounds normal. No guarding, rigidity, tenderness, or distention. Midline abd ominal surgical scar with donavon present. No sign of any infection. Extremities: Bilateral leg edema. Impression: 1.Leg edema. 2.Paroxysmal atrial fibrillation. 3.Chronic steroid therapy. 4.Dysuria. Plan: The patient started to have some dysuria today, so urinalysis and urine culture was ordered. One dose of Lasix IV x1 dose was ordered. I will see him tomorrow for followup. He is actually sche duled to go home tomorrow. Depending on his condition, we will decide if he can go home tomorrow or not. As of today, his prednisone dose will be reduced to 15 mg p.o. daily, and in next day or two da ys we will reduce dose to 10 mg daily which is his maintenance dose. JORDAN/MODL Voice ID: [id number] Report ID: [id number]
--- NOTE | 2018-11-01 00:58 | FAST ---
SHIFT START DATE/TIME: 10/31/2018 19:00 (PROFESSIONAL ENGINEER) SHIFT END DATE/TIME: 11/01/2018 07:00 (PROFESSIONAL ENGINEER) NAME TENA ESTRADA DATE OF : 1960 DATE OF ADMISSION: 10/21/2018 22:32 (PROFESSIONAL ENGINEER) PHONE: AGE: 57 SSN# [id number] GENDER: Male ENCOUNTER PHYSICIAN: Dr. Jesus Chandler M.D. ADMISSION DIAGNOSIS: - Debility 16 - Debility (16) SMALL BOWEL OBSTRUCTION. EATING: Activity did not occur on this shift EATING - SCORE: 0-UNK GROOMING: Activity did not occur on this shift GROOMING - SCORE: 0-UNK BATHING: Activity did not occur on this shift BATHING - SCORE: 0-UNK DRESSING - UPPER BODY: Patient is not dressing in public clothing ARTICLES SCORE Total number of steps: 0 DRESSING - UPPER BODY - SCORE: 0-UNK DRESSING - LOWER BODY: Patient is not dressing in public clothing ARTICLES SCORE Total number of steps: 0 DRESSING - LOWER BODY - SCORE: 0-UNK TOILETING: TOILETING - STEP 1: Does the patient require the assistance of a person or device, or need extra time with toileting? Yes . TOILETING - STEP 2: Does the patient require the assistance of a helper? Yes. TOILETING - STEP 3: How much assistance does the patient require from the helper? Only supervision TOILETING - SCORE: 5-SUP BLADDER MANAGEMENT: BLADDER MANAGEMENT - STEP 1: Does the patient control the bladder completely and intentionally without equipment or devices or med ications, and is always continent? Yes. BLADDER MANAGEMENT - SCORE: 7-IND BOWEL MANAGEMENT: BOWEL MANAGEMENT - STEP 1: Does the patient control bowels completely and intentionally without equipment devices or medications AND is always continent? No. BOWEL MANAGEMENT - STEP 2: Does the patient require the assistance of a helper? No, patient requires medication for control such as stool softeners, suppositories, laxatives, enemas, or OTC medications BOWEL MANAGEMENT - SCORE: 6-BRI TRANSFERS: BED, CHAIR, WHEELCHAIR: Activity did not occur on this shift TRANSFERS: BED, CHAIR, WHEELCHAIR - SCORE: 0-UNK TRANSFERS: TOILET: Activity did not occur on this shift TRANSFERS: TOILET - SCORE: 0-UNK TRANSFERS: SHOWER: Activity did not occur on this shift TRANSFERS: SHOWER - SCORE: 0-UNK TRANSFERS: TUB: Activity did not occur on this shift TRANSFERS: TUB - SCORE: 0-UNK LOCOMOTION: WALK: Activity did not occur on this shift LOCOMOTION: WALK - SCORE: 0-UNK LOCOMOTION: WHEELCHAIR: Activity did not occur on this shift LOCOMOTION: WHEELCHAIR - SCORE: 0-UNK COMPREHENSION: COMPREHENSION: TYPE: Both COMPREHENSION - STEP 1: Does the patient require help from a person or device, or need extra time to understand complex and a bstract ideas (such as current events, finances, discharge planning, medical issues, relationships, e tc)? No. COMPREHENSION - STEP 2: Does the patient need extra time, require an assistive device (such as glasses for visual comprehensi on or a hearing aid for auditory comprehension) or does s/he have mild difficulty understanding compl ex and abstract information? Yes. COMPREHENSION - SCORE: 6-BRI EXPRESSION EXPRESSION: TYPE: Both EXPRESSION - STEP 1: Does the patient require help from a person or device, or need extra time expressing complex and abst ract ideas (such as current events, finances, discharge planning, medical issues, relationships, etc) ? No. EXPRESSION - STEP 2: Does the patient need extra time, require an assistive device (such as augmentive communication syste m or a communication board), OR does s/he have mild difficulty expressing complex and abstract ideas (including mild dysarthria or mild word-find problems)? No. EXPRESSION - SCORE: 7-IND SOCIAL INTERACTION: SOCIAL INTERACTION - STEP 1: Does the patient require a helper to interact with others in social and therapeutic situations? No. SOCIAL INTERACTION - STEP 2: Does the patient need extra time in social situations, OR does s/he interact with staff, other patien ts, and family members ONLY in structured environments, OR does s/he require medication for social in teraction? Yes, patient needs extra time SOCIAL INTERACTION - SCORE: 6-BRI PROBLEM SOLVING: PROBLEM SOLVING - STEP 1: Does the patient need help from a person or device, or need extra time to solve complex problems such as managing a checking account or confronting interpersonal problems? No. PROBLEM SOLVING - STEP 2: Does the patient require extra time to make decisions or solve problems, OR does s/he have slight dif ficulty reading, initiating, or self-correcting in unfamiliar situations? No. PROBLEM SOLVING - SCORE: 7-IND MEMORY: MEMORY - STEP 1: Does the patient need help from a person or device, or need extra time to remember frequently encount ered people, daily routines, and executing requests? No. MEMORY - STEP 2: Does the patient have slight difficulty recognizing frequently encountered people, daily routines, or executing requests without the need for repetition or using self-initiated or environmental cues to remember? No. MEMORY - SCORE: 7-IND SIGNATURE PANEL: The following modified sections: Eating - Score, Grooming - Score, Dressing - Upper Body - Score, Rigoberto ssing - Lower Body - Score, Toileting - Score, Bladder Management - Score, Bowel Management - Score, Transfers: Bed, Chair, Wheelchair - Score, Transfers: Toilet - Score, Transfers: Shower - Score, Fraga sfers: Tub - Score, Locomotion: Walk - Score, Locomotion: Wheelchair - Score, Comprehension - Score, Expression - Score, Social Interaction - Score, Problem Solving - Score, Memory - Score were [electro nically] signed by Ciara Crane CNA on WedNov 01 2018 00:57:26 GMT-0600 (Central Standard Time)
[2018-11-01] MEDS: HYDROCODONE/APAP 10/325 TAB PO PRN ×4 (03:00→23:09)
[2018-11-01 03:14] LABS: Urine Appearance CLEAR; Urine Bilirubin NEGATIVE (NEG); Urine Blood NEGATIVE (NEG); Urine Color YELLOW; Urine Glucose NEGATIVE (NEG); Urine Protein NEGATIVE (NEG); Urine Urobilinogen 0.2 mg/dL (0.2-1.0)
[2018-11-01 03:18] LABS: Urine Microscopic Reflex ORDER UMIC
[2018-11-01 03:43] LABS: Urine Bacteria >50 /HPF (NONE SEEN); Urine Culture Reflex Order NOT NEEDED
[2018-11-01 03:44] LABS: Urine RBC <5 /HPF (NONE SEEN)
[2018-11-01] MEDS: SOTALOL HCL 80 MG TAB PO SCH ×2 (05:14→17:13)
[2018-11-01] MEDS: PANTOPRAZOLE 40MG TABLET PO SCH (05:15)
[2018-11-01] MEDS: PROMETHAZINE 25 MG/ML VIAL IV PRN ×4 (05:15→23:09)
[2018-11-01] MEDS: POLYETHYL GLY 3350 17 GM/DOSE PO SCH (08:00)
[2018-11-01] MEDS: levoFLOXacin 500 MG TAB PO SCH ×2 (08:00→08:56)
[2018-11-01] MEDS: PROMOD 30 ML DOSE PO SCH ×2 (08:00→19:37)
[2018-11-01] MEDS: FERROUS SULFATE 325 MG TAB PO SCH (08:55)
[2018-11-01] MEDS: DULOXETINE 30 MG CAP PO SCH (08:55)
[2018-11-01] MEDS: predniSONE 10 MG TAB PO SCH (08:55)
[2018-11-01] MEDS: FE SULF/FA/VIT B COMP & C TAB PO SCH (08:55)
[2018-11-01] MEDS: SPIRONOLACTONE 25 MG TABLET PO SCH ×2 (08:56→19:34)
[2018-11-01] MEDS: MULTIVITAMIN TAB PO SCH (08:56)
[2018-11-01] MEDS: predniSONE 5 MG TAB PO SCH (08:56)
[2018-11-01] MEDS: DOCUSATE NA/SENNA CONC 1 TAB PO SCH ×2 (08:57→19:34)
[2018-11-01] MEDS: FOLIC ACID 1 MG TABLET PO SCH (08:57)
[2018-11-01] MEDS: CHLORTHALIDONE 25 MG TAB PO SCH (08:57)
[2018-11-01] MEDS: SMZ./TMP. 800/160 MG TABLET PO SCH ×2 (09:12→19:34)
--- NOTE | 2018-11-01 14:51 | FAST ---
SHIFT START DATE/TIME: 11/01/2018 07:00 (PUBLIC HEALTH INFORMATICIAN) SHIFT END DATE/TIME: 11/01/2018 19:00 (PUBLIC HEALTH INFORMATICIAN) NAME TENA ESTRADA DATE OF : 1960 DATE OF ADMISSION: 10/21/2018 22:32 (PUBLIC HEALTH INFORMATICIAN) PHONE: AGE: 57 SSN# [id number] GENDER: Male ENCOUNTER PHYSICIAN: Dr. Jesus Chandler M.D. ADMISSION DIAGNOSIS: - Debility 16 - Debility (16) SMALL BOWEL OBSTRUCTION. EATING: EATING - STEP 1: Does the patient require the assistance of a person or device, or need extra time when eating? Yes. EATING - STEP 2: Does the patient require the assistance of a helper? No, patient only requires an assistive device, O R s/he takes more than reasonable time to eat, OR there is a safety concern, OR s/he requires modifie d food consistency EATING - SCORE: 6-BRI GROOMING: Activity did not occur on this shift GROOMING - SCORE: 0-UNK BATHING: Activity did not occur on this shift BATHING - SCORE: 0-UNK DRESSING - UPPER BODY: Activity did not occur on this shift ARTICLES SCORE Total number of steps: 0 DRESSING - UPPER BODY - SCORE: 0-UNK DRESSING - LOWER BODY: Activity did not occur on this shift ARTICLES SCORE Total number of steps: 0 DRESSING - LOWER BODY - SCORE: 0-UNK TOILETING: TOILETING - STEP 1: Does the patient require the assistance of a person or device, or need extra time with toileting? Yes . TOILETING - STEP 2: Does the patient require the assistance of a helper? No. TOILETING - SCORE: 6-BRI BLADDER MANAGEMENT: Bureau performs entire intermittent straight catheterization procedure. BLADDER MANAGEMENT - SCORE: 1-DEP BOWEL MANAGEMENT: Activity did not occur on this shift BOWEL MANAGEMENT - SCORE: 7-IND TRANSFERS: BED, CHAIR, WHEELCHAIR: TRANSFERS: BED, CHAIR, WHEELCHAIR - STEP 1: Does the patient require assistance of a person or device, or need extra time with bed, chair, or whe elchair transfers? Yes. TRANSFERS: BED, CHAIR, WHEELCHAIR - STEP 2: Does the patient require the assistance of a helper? Yes. TRANSFERS: BED, CHAIR, WHEELCHAIR - STEP 3: How much assistance does the patient require from the helper? Steadying/guiding assistance TRANSFERS: BED, CHAIR, WHEELCHAIR - SCORE: 4-MIN TRANSFERS: TOILET: TRANSFERS: TOILET - STEP 1: Does the patient require the assistance of a person or device, or need extra time with toilet transfe rs? Yes. TRANSFERS: TOILET - STEP 2: Does the patient require the assistance of a helper? Yes. TRANSFERS: TOILET - STEP 3: How much assistance does the patient require from the helper? Patient performs half or more of the tr ansferring tasks TRANSFERS: TOILET - STEP 4: Does the patient need only incidental help such as contact guard or steadying during toilet transfer? Yes. TRANSFERS: TOILET - SCORE: 4-MIN TRANSFERS: SHOWER: Activity did not occur on this shift TRANSFERS: SHOWER - SCORE: 0-UNK TRANSFERS: TUB: Activity did not occur on this shift TRANSFERS: TUB - SCORE: 0-UNK LOCOMOTION: WALK: Activity did not occur on this shift LOCOMOTION: WALK - SCORE: 0-UNK LOCOMOTION: WHEELCHAIR: Activity did not occur on this shift LOCOMOTION: WHEELCHAIR - SCORE: 0-UNK COMPREHENSION: COMPREHENSION: TYPE: Both COMPREHENSION - STEP 1: Does the patient require help from a person or device, or need extra time to understand complex and a bstract ideas (such as current events, finances, discharge planning, medical issues, relationships, e tc)? No. COMPREHENSION - STEP 2: Does the patient need extra time, require an assistive device (such as glasses for visual comprehensi on or a hearing aid for auditory comprehension) or does s/he have mild difficulty understanding compl ex and abstract information? Yes. COMPREHENSION - SCORE: 6-BRI EXPRESSION EXPRESSION: TYPE: Both EXPRESSION - STEP 1: Does the patient require help from a person or device, or need extra time expressing complex and abst ract ideas (such as current events, finances, discharge planning, medical issues, relationships, etc) ? No. EXPRESSION - STEP 2: Does the patient need extra time, require an assistive device (such as augmentive communication syste m or a communication board), OR does s/he have mild difficulty expressing complex and abstract ideas (including mild dysarthria or mild word-find problems)? Yes. EXPRESSION - SCORE: 6-BRI SOCIAL INTERACTION: SOCIAL INTERACTION - STEP 1: Does the patient require a helper to interact with others in social and therapeutic situations? No. SOCIAL INTERACTION - STEP 2: Does the patient need extra time in social situations, OR does s/he interact with staff, other patien ts, and family members ONLY in structured environments, OR does s/he require medication for social in teraction? Yes, patient needs extra time SOCIAL INTERACTION - SCORE: 6-BRI PROBLEM SOLVING: PROBLEM SOLVING - STEP 1: Does the patient need help from a person or device, or need extra time to solve complex problems such as managing a checking account or confronting interpersonal problems? No. PROBLEM SOLVING - STEP 2: Does the patient require extra time to make decisions or solve problems, OR does s/he have slight dif ficulty reading, initiating, or self-correcting in unfamiliar situations? Yes, patient needs extra ti me. PROBLEM SOLVING - SCORE: 6-BRI MEMORY: MEMORY - STEP 1: Does the patient need help from a person or device, or need extra time to remember frequently encount ered people, daily routines, and executing requests? Yes. MEMORY - STEP 2: How often does the patient need help to remember frequently encountered people, daily routines, and e xecuting requests? Less than 10% of the time MEMORY - SCORE: 5-SUP SIGNATURE PANEL: The following modified sections: Eating - Score, Grooming - Score, Bathing - Score, Dressing - Upper Body - Score, Dressing - Lower Body - Score, Toileting - Score, Bladder Management - Score, Bowel Man agement - Score, Transfers: Bed, Chair, Wheelchair - Score, Transfers: Toilet - Score, Transfers: Ivon wer - Score, Transfers: Tub - Score, Locomotion: Walk - Score, Locomotion: Wheelchair - Score, Compre hension - Score, Expression - Score, Social Interaction - Score, Problem Solving - Score, Memory - Sc ore were [electronically] signed by Karan Jung on WedNov 01 2018 14:51:06 GMT-0600 (Central Standard Time)
--- NOTE | 2018-11-01 16:03 | FAST ---
ENCOUNTER DATE AND TIME: 11/01/2018 08:00 (SHAFTING CLEANER) NAME TENA ESTRADA DATE OF : 1960 DATE OF ADMISSION: 10/21/2018 22:32 (SHAFTING CLEANER) PHONE: AGE: 57 SSN# [id number] GENDER: Male ENCOUNTER PHYSICIAN: Dr. Jesus Chandler M.D. ADMISSION DIAGNOSIS: - Debility 16 - Debility (16) SMALL BOWEL OBSTRUCTION. EATING: Activity did not occur on this shift EATING - SCORE: 0-UNK GROOMING: Activity did not occur on this shift GROOMING - SCORE: 0-UNK BATHING: Activity did not occur on this shift BATHING - SCORE: 0-UNK DRESSING - UPPER BODY: Activity did not occur on this shift Patient is not dressing in public clothing ARTICLES SCORE Total number of steps: 0 DRESSING - UPPER BODY - SCORE: 0-UNK DRESSING - LOWER BODY: Activity did not occur on this shift Patient is not dressing in public clothing ARTICLES SCORE Total number of steps: 0 DRESSING - LOWER BODY - SCORE: 0-UNK TOILETING: Activity did not occur on this shift TOILETING - SCORE: 0-UNK BLADDER MANAGEMENT: Activity did not occur on this shift BLADDER MANAGEMENT - SCORE: 7-IND BOWEL MANAGEMENT: Activity did not occur on this shift BOWEL MANAGEMENT - SCORE: 7-IND TRANSFERS: BED, CHAIR, WHEELCHAIR: TRANSFERS: BED, CHAIR, WHEELCHAIR - STEP 1: Does the patient require assistance of a person or device, or need extra time with bed, chair, or whe elchair transfers? Yes. TRANSFERS: BED, CHAIR, WHEELCHAIR - STEP 2: Does the patient require the assistance of a helper? No. Patient only requires an assistive device fo r bed, chair, wheelchair transfers such as a sliding board, grab bar, or brace, OR s/he takes more th an reasonable time, OR there is a safety concern when s/he performs the transfers TRANSFERS: BED, CHAIR, WHEELCHAIR - SCORE: 6-BRI TRANSFERS: TOILET: Activity did not occur on this shift TRANSFERS: TOILET - SCORE: 0-UNK TRANSFERS: SHOWER: Activity did not occur on this shift TRANSFERS: SHOWER - SCORE: 0-UNK TRANSFERS: TUB: Activity did not occur on this shift TRANSFERS: TUB - SCORE: 0-UNK LOCOMOTION: WALK: LOCOMOTION: WALK - STEP 1: Does the patient need help from a person or device, or need extra time to walk 150 feet? No. LOCOMOTION: WALK - STEP 2: Does the patient need an assistive device (such as an orthosis, prosthesis, crutches, or walker) to g o 150 feet, OR does s/he take more than reasonable time, OR is there a concern for safety? Yes, the p atient needs an assistive device LOCOMOTION: WALK - SCORE: 6-BRI LOCOMOTION: WHEELCHAIR: LOCOMOTION: WHEELCHAIR - STEP 1: Does the patient need help to go 150 feet in a wheelchair? No. LOCOMOTION: WHEELCHAIR - SCORE: 6-BRI LOCOMOTION: STAIRS: LOCOMOTION: STAIRS - STEP 1: Does the patient need help to go up and down 12 to 14 stairs? No. LOCOMOTION: STAIRS - STEP 2: Does the patient require an assistive device - such as handrails or cane - to go up and down one flig ht of stairs, OR does s/he take more than reasonable time, OR is there a concern for safety? Yes, the patient requires an assistive device LOCOMOTION: STAIRS - SCORE: 6-BRI COMPREHENSION: COMPREHENSION - SCORE: 0-UNK EXPRESSION EXPRESSION - SCORE: 0-UNK SOCIAL INTERACTION: SOCIAL INTERACTION - SCORE: 0-UNK PROBLEM SOLVING: PROBLEM SOLVING - SCORE: 0-UNK MEMORY: MEMORY - SCORE: 0-UNK SIGNATURE PANEL: The following modified sections: Transfers: Bed, Chair, Wheelchair - Score, Transfers: Toilet - Score , Locomotion: Walk - Score, Locomotion: Wheelchair - Score, Locomotion: Stairs - Score were [electron stacey] signed by Ez Aguirre PT on WedNov 01 2018 16:01:41 GMT-0600 (Central Standard Time)
[2018-11-01] MEDS: RIVAROXABAN 20 MG TABLET PO SCH (17:13)
--- NOTE | 2018-11-01 17:57 | R.PN ---
ENCOUNTER DATE AND TIME: 11/01/2018 17:52 (CIGARETTE FILTER INSPECTOR) NAME TENA ESTRADA DATE OF : 1960 DATE OF ADMISSION: 10/21/2018 22:32 (CIGARETTE FILTER INSPECTOR) SMALL BOWEL OBSTRUCTIONCHIEF COMPLAINT: Small bowel obstruction. Status post abdominal surgery SUBJECTIVE: Pt denied any Shortness of Breath. Pt denied any depression. Ambulated 1000' with modified independence using a rolling walker. Posterior propelled wheelchair 500 ' with bilateral lower extremities. Up and down 15 steps with modified independence. Repeat urinalysis sows positive nitrites, 2+ esterase and > 50 bacteria. He reports pus in the urine. Ambulated 500' with standby assistance using a rolling walker. VITAL SIGNS Temperature: 97.6 F SBP/DBP: 134/90 Pulse: 86 Resp: 16 MEDICATION ALLERGIES: Demerol REMICADE ENVIRONMENTAL ALLERGIES: None Known - Substance Allergies None Known - Other Allergies LATEX NURSING: - Shower allowing shower ACTIVITIES OOB only with supervision THERAPIES: - Occupational Therapy Evaluate and Treat. - Physical Therapy Evaluate and Treat. PHYSICAL EXAM - Gen Alert and awake Lying in bed No apparent distress Oriented to: person, time, and place - Skin Healing surgical wound in the abdomen. - Eyes No abnormalities - ENMT No abnormalities - Neck No abnormalities - CVS RRR - Chest Incision is healing with good hemostasis. - Resp No wheezing - Abd +bowel sounds - GI Obese Deferred - No abnormalities - Ext Mild bilateral lower extremity edema. - MSK 4+/5 weakness in both lower extremities. - Neuro 4/5 strength bilaterally upper and lower extremities. - Psych No abnormalities ASSESSMENT: Pt. is a 57 yo Right-handed white male.On 10/05/2018 he was admitted to [facility] with diagno sis SMALL BOWEL OBSTRUCTION.His impairment category is Debility 16 - Debility (16).Pre-morbidly, Pt. was independent/mod-I in Communication, Social Cognition, Self-Care, Locomotion, Sphincter Control, and Transfers Control; and he had good Sphincter Control.Currently, he has deficits of Balance, Self- Care, Locomotion, Endurance, Safety Awareness, and Transfers Control.Pt. is now referred to [facility] for acute in-patient rehabilitation in order to maximize patient's functiona l independence in activities of daily living, strength, ROM, and mobility.- Rehab Goal Patient has realistic goal of being discharged at assistance level 6-Erasmo to reside at Home with Fam james/Relatives. MDM/PLAN: - Physical Therapy Gait dysfunction - to improve, our physical therapists will perform initial evaluation of pt's statu s upon admission and devise an individualized program for Gait Training, and Wheel Chair mobility Inability to transfer - to improve, our physical therapists will perform initial evaluation of pt's status upon admission and devise an individualized program for Bed mobility Need for home safety evaluation - to improve, our physical therapists will perform initial evaluatio n of pt's status upon admission and devise an individualized program for Home Evaluation Need in caregiver upon discharge - to improve, our physical therapists will perform initial evaluati on of pt's status upon admission and devise an individualized program for Caregiver Training Edema - to improve, our physical therapists will perform initial evaluation of pt's status upon admi ssion and devise an individualized program for Elevation Training, and Lymphedema Therapy New precaution - to improve, our physical therapists will perform initial evaluation of pt's status upon admission and devise an individualized program for Patient precaution education Having wound - to improve, our physical therapists will perform initial evaluation of pt's status up on admission and devise an individualized program for Wound Care Poor balance - to improve, our physical therapists will perform initial evaluation of pt's status up on admission and devise an individualized program for Balance Training Poor endurance - to improve, our physical therapists will perform initial evaluation of pt's status upon admission and devise an individualized program for Endurance Training Weakness - to improve, our physical therapists will perform initial evaluation of pt's status upon a dmission and devise an individualized program for Aquatic Therapy, Neuromuscular Reeducation, and Str engthening Achieving independence - to improve, our physical therapists will perform initial evaluation of pt's status upon admission and devise an individualized program for Community Reintegration Activities - Occupational Therapy ADL deficits - to improve, our occupation therapists will perform initial evaluation of pt's status upon admission and devise an individualized program for Bathing, Bed mobility, Community Reintegratio n, Cooking, Dressing, Eating, Fine Motor Skills, Grooming, Homemaking, Kitchen Mobility, Laundry, Pat ient Education, Safety Awareness, Splinting - Positioning, Transfers(Toilet, Tub, Shower), and Wheel Chair Management Need for career development consultant - to improve, our occupation therapists will perform initial evaluation of pt's status upon admission and devise an individualized program for Caregiver Training Weakness - to improve, our occupation therapists will perform initial evaluation of pt's status upon admission and devise an individualized program for Aquatic Therapy, Balance, Endurance, UE ROM, and UE strengthening - Diet Type Continue BARIATRIC FULLS - Diet - Liquid Texture Continue Regular - Tube Feed Continue N/A - Diet - Solid Texture Continue Regular - Shower allowing shower FUNCTIONAL STATUS: UPDATED AT WEEKLY TEAM CONFERENCE - Bladder Same accident frequency: 7-Ind - No accidents in the past 7 days - Bowel Same accident frequency: 7-Ind - No accidents in the past 7 days - Walking Same score based on distance walked: 3(>=150ft) - Wheelchair Same score based on distance traveled: 0(N/A) FUNCTIONAL STATUS: - Self-Care A. Eating sup B. Grooming sup C. Bathing sup D. Dressing - Upper sup E. Dressing - Lower sup F. Toileting Dep - Sphincter Control G: Bladder control Dep H: Bowel control Ind - Transfers Control I. Bed/Chair/Wheelchair sup J. Toilet Lila K. Tub/Shower Ind - Locomotion L. Walk/Wheelchair (C) Lila L. Walk/Wheelchair (W) Lila M. Stairs ADNO - Communication N. Comprehension (B) Ind O. Expression (B) Ind - Social Cognition P. Social Interaction Ind Q. Problem Solving Ind R. Memory Ind - Endurance Fair - Balance Fair - Safety Awareness Fair CURRENT FUNC. DEFICITS: Balance, Self-Care, Locomotion, Endurance, Safety Awareness, and Transfers Control SIGNATURE PANEL: (CIGARETTE FILTER INSPECTOR)
--- NOTE | 2018-11-02 02:04 | PN ---
Date of Progress Note: 11/01/2018 Subjective: The patient was seen this morning for followup. No new complaints or problems reported by the patient. He had some dysuria yesterday and urinalysis came back abnormal. Urine culture is p ending. He had some leg swelling and IV Lasix was given. This morning, leg swelling is better. Objective: HEENT: Unremarkable. Lungs: Clear to auscultation. Heart: Sounds normal. Abdomen: Soft. Bowel sounds normal. No guarding, rigidity, tenderness, or distention. Extremities: Bilateral leg edema about trace to grade 1. Impression: 1.Leg edema. 2.Hypertension. 3.Debility. 4.Generalized weakness. 5.Paroxysmal atrial fibrillation. 6.Chronic steroid therapy. 7.Chronic anticoagulation therapy. Plan: The patient informs me that at least for last 2-3 months, his prednisone dose is 10 mg daily, so we will go ahead and increase dose to 20 mg daily starting tomorrow and continue current anticoagu lation medication, continue current diuretic medication. Antibiotic was started for urinary tract in fection. He has had recurrent urinary tract infection and at some point, he had resistant bacteria r equiring IV antibiotic therapy. So, what I have asked the patient's is to talk to rehab floor a s he is originally scheduled for discharge for today, but considering this urinary tract infection, I would prefer him not to go home until his final report on the urine culture is available, so we can make decision whether he needs to go home with oral or IV antibiotics. JORDAN/MODL Voice ID: [id number] Report ID: [id number]
--- NOTE | 2018-11-02 02:27 | FAST ---
SHIFT START DATE/TIME: 11/01/2018 19:00 (PAPER REELER) SHIFT END DATE/TIME: 11/02/2018 07:00 (PAPER REELER) NAME TENA ESTRADA DATE OF : 1960 DATE OF ADMISSION: 10/21/2018 22:32 (PAPER REELER) PHONE: AGE: 57 SSN# [id number] GENDER: Male ENCOUNTER PHYSICIAN: Dr. Jesus Chandler M.D. ADMISSION DIAGNOSIS: - Debility 16 - Debility (16) SMALL BOWEL OBSTRUCTION. EATING: Activity did not occur on this shift EATING - SCORE: 0-UNK GROOMING: Activity did not occur on this shift GROOMING - SCORE: 0-UNK BATHING: Activity did not occur on this shift BATHING - SCORE: 0-UNK DRESSING - UPPER BODY: Patient is not dressing in public clothing ARTICLES SCORE Total number of steps: 0 DRESSING - UPPER BODY - SCORE: 0-UNK DRESSING - LOWER BODY: Patient is not dressing in public clothing ARTICLES SCORE Total number of steps: 0 DRESSING - LOWER BODY - SCORE: 0-UNK TOILETING: TOILETING - STEP 1: Does the patient require the assistance of a person or device, or need extra time with toileting? Yes . TOILETING - STEP 2: Does the patient require the assistance of a helper? Yes. TOILETING - STEP 3: How much assistance does the patient require from the helper? Only supervision TOILETING - SCORE: 5-SUP BLADDER MANAGEMENT: BLADDER MANAGEMENT - STEP 1: Does the patient control the bladder completely and intentionally without equipment or devices or med ications, and is always continent? No. BLADDER MANAGEMENT - STEP 2: Does the patient require the assistance of a helper? Yes. BLADDER MANAGEMENT - STEP 3: How much assistance does the patient require from the helper? Only set-up of equipment - such as plac ing it within reach of the patient or emptying a device - to maintain either satisfactory voiding pat tern or managing an external device, such as an absorbent pad, ileal device, or catheter BLADDER MANAGEMENT - SCORE: 5-SUP BOWEL MANAGEMENT: Activity did not occur on this shift BOWEL MANAGEMENT - SCORE: 7-IND TRANSFERS: BED, CHAIR, WHEELCHAIR: Activity did not occur on this shift TRANSFERS: BED, CHAIR, WHEELCHAIR - SCORE: 0-UNK TRANSFERS: TOILET: Activity did not occur on this shift TRANSFERS: TOILET - SCORE: 0-UNK TRANSFERS: SHOWER: Activity did not occur on this shift TRANSFERS: SHOWER - SCORE: 0-UNK TRANSFERS: TUB: Activity did not occur on this shift TRANSFERS: TUB - SCORE: 0-UNK LOCOMOTION: WALK: Activity did not occur on this shift LOCOMOTION: WALK - SCORE: 0-UNK LOCOMOTION: WHEELCHAIR: Activity did not occur on this shift LOCOMOTION: WHEELCHAIR - SCORE: 0-UNK COMPREHENSION: COMPREHENSION: TYPE: Both COMPREHENSION - STEP 1: Does the patient require help from a person or device, or need extra time to understand complex and a bstract ideas (such as current events, finances, discharge planning, medical issues, relationships, e tc)? No. COMPREHENSION - STEP 2: Does the patient need extra time, require an assistive device (such as glasses for visual comprehensi on or a hearing aid for auditory comprehension) or does s/he have mild difficulty understanding compl ex and abstract information? Yes. COMPREHENSION - SCORE: 6-BRI EXPRESSION EXPRESSION: TYPE: Both EXPRESSION - STEP 1: Does the patient require help from a person or device, or need extra time expressing complex and abst ract ideas (such as current events, finances, discharge planning, medical issues, relationships, etc) ? No. EXPRESSION - STEP 2: Does the patient need extra time, require an assistive device (such as augmentive communication syste m or a communication board), OR does s/he have mild difficulty expressing complex and abstract ideas (including mild dysarthria or mild word-find problems)? No. EXPRESSION - SCORE: 7-IND SOCIAL INTERACTION: SOCIAL INTERACTION - STEP 1: Does the patient require a helper to interact with others in social and therapeutic situations? No. SOCIAL INTERACTION - STEP 2: Does the patient need extra time in social situations, OR does s/he interact with staff, other patien ts, and family members ONLY in structured environments, OR does s/he require medication for social in teraction? No. SOCIAL INTERACTION - SCORE: 7-IND PROBLEM SOLVING: PROBLEM SOLVING - STEP 1: Does the patient need help from a person or device, or need extra time to solve complex problems such as managing a checking account or confronting interpersonal problems? No. PROBLEM SOLVING - STEP 2: Does the patient require extra time to make decisions or solve problems, OR does s/he have slight dif ficulty reading, initiating, or self-correcting in unfamiliar situations? No. PROBLEM SOLVING - SCORE: 7-IND MEMORY: MEMORY - STEP 1: Does the patient need help from a person or device, or need extra time to remember frequently encount ered people, daily routines, and executing requests? No. MEMORY - STEP 2: Does the patient have slight difficulty recognizing frequently encountered people, daily routines, or executing requests without the need for repetition or using self-initiated or environmental cues to remember? No. MEMORY - SCORE: 7-IND
[2018-11-02] MEDS: HYDROCODONE/APAP 10/325 TAB PO PRN ×4 (03:30→23:05)
[2018-11-02] MEDS: ONDANSETRON 4 MG (ODT) TAB PO PRN (03:32)
[2018-11-02] MEDS: PROMETHAZINE 25 MG/ML VIAL IV PRN ×4 (05:18→23:05)
[2018-11-02] MEDS: SOTALOL HCL 80 MG TAB PO SCH ×2 (05:19→17:02)
[2018-11-02] MEDS: PANTOPRAZOLE 40MG TABLET PO SCH (06:08)
[2018-11-02] MEDS: PROMOD 30 ML DOSE PO SCH ×2 (08:00→20:00)
[2018-11-02] MEDS: POLYETHYL GLY 3350 17 GM/DOSE PO SCH (08:00)
[2018-11-02] MEDS: FERROUS SULFATE 325 MG TAB PO SCH (08:05)
[2018-11-02] MEDS: MULTIVITAMIN TAB PO SCH (08:05)
[2018-11-02] MEDS: DOCUSATE NA/SENNA CONC 1 TAB PO SCH ×2 (08:05→20:06)
[2018-11-02] MEDS: levoFLOXacin 500 MG TAB PO SCH (08:06)
[2018-11-02] MEDS: CHLORTHALIDONE 25 MG TAB PO SCH (08:06)
[2018-11-02] MEDS: DULOXETINE 30 MG CAP PO SCH (08:06)
[2018-11-02] MEDS: FOLIC ACID 1 MG TABLET PO SCH (08:06)
[2018-11-02] MEDS: FE SULF/FA/VIT B COMP & C TAB PO SCH (08:06)
[2018-11-02] MEDS: SPIRONOLACTONE 25 MG TABLET PO SCH ×2 (08:08→20:07)
[2018-11-02] MEDS: predniSONE 5 MG TAB PO SCH (08:09)
[2018-11-02] MEDS: predniSONE 10 MG TAB PO SCH (08:09)
[2018-11-02 08:13] LABS: Absolute Lymphocytes (CBC) 4.3 K/uL (0.7-4.9); Absolute Monocytes 0.9 K/uL (0.1-1.3); Absolute Neutrophil 5.9 K/uL (1.8-8.0); Basophils % 0.5 % (0-1.3); Eosinophils % 2.3 % (0-4.4); Hematocrit 37.6 % (39.6-49.0); Lymphocytes % 37.3 % (15.3-44.8); MCH 30.6 pg (27.0-35.0); MCV 94.4 fL (80-100); MPV 8.8 fL (7.6-11.3); Monocytes % 8.2 % (3.3-12.3); RBC Red Blood Cell Count 3.98 M/uL (4.33-5.43)
[2018-11-02 08:17] LABS: Magnesium 1.7 mg/dL (1.8-2.4); Potassium 3.8 mmol/L (3.5-5.1)
[2018-11-02] MEDS: CEFTRIAXONE/SWI 1gm 1 GM/10 ML SYR IV SCH ×2 (08:27→20:06)
--- NOTE | 2018-11-02 13:57 | FAST ---
SHIFT START DATE/TIME: 11/02/2018 07:00 (LICENSING OFFICER) SHIFT END DATE/TIME: 11/02/2018 19:00 (LICENSING OFFICER) NAME TENA ESTARDA DATE OF : 1960 DATE OF ADMISSION: 10/21/2018 22:32 (LICENSING OFFICER) PHONE: AGE: 57 SSN# [id number] GENDER: Male ENCOUNTER PHYSICIAN: Dr. Jesus Chandler M.D. ADMISSION DIAGNOSIS: - Debility 16 - Debility (16) SMALL BOWEL OBSTRUCTION. EATING: EATING - STEP 1: Does the patient require the assistance of a person or device, or need extra time when eating? Yes. EATING - STEP 2: Does the patient require the assistance of a helper? No, patient only requires an assistive device, O R s/he takes more than reasonable time to eat, OR there is a safety concern, OR s/he requires modifie d food consistency EATING - SCORE: 6-BRI GROOMING: Activity did not occur on this shift GROOMING - SCORE: 0-UNK BATHING: Activity did not occur on this shift BATHING - SCORE: 0-UNK DRESSING - UPPER BODY: Activity did not occur on this shift ARTICLES SCORE Total number of steps: 0 DRESSING - UPPER BODY - SCORE: 0-UNK DRESSING - LOWER BODY: Activity did not occur on this shift ARTICLES SCORE Total number of steps: 0 DRESSING - LOWER BODY - SCORE: 0-UNK TOILETING: TOILETING - STEP 1: Does the patient require the assistance of a person or device, or need extra time with toileting? Yes . TOILETING - STEP 2: Does the patient require the assistance of a helper? Yes. TOILETING - STEP 3: How much assistance does the patient require from the helper? Only supervision TOILETING - SCORE: 5-SUP BLADDER MANAGEMENT: [place] performs entire intermittent straight catheterization procedure. BLADDER MANAGEMENT - SCORE: 1-DEP BLADDER MANAGEMENT - FREQUENCY OF ACCIDENTS: BLADDER MANAGEMENT(FA) - STEP 1: How many accidents has the patient had during the current shift? 0 BOWEL MANAGEMENT: Activity did not occur on this shift BOWEL MANAGEMENT - SCORE: 7-IND BOWEL MANAGEMENT - FREQUENCY OF ACCIDENTS: BOWEL MANAGEMENT(FA) - STEP 1: How many accidents has the patient had during the current shift? 0 TRANSFERS: BED, CHAIR, WHEELCHAIR: TRANSFERS: BED, CHAIR, WHEELCHAIR - STEP 1: Does the patient require assistance of a person or device, or need extra time with bed, chair, or whe elchair transfers? Yes. TRANSFERS: BED, CHAIR, WHEELCHAIR - STEP 2: Does the patient require the assistance of a helper? Yes. TRANSFERS: BED, CHAIR, WHEELCHAIR - STEP 3: How much assistance does the patient require from the helper? Only supervision TRANSFERS: BED, CHAIR, WHEELCHAIR - SCORE: 5-SUP TRANSFERS: TOILET: TRANSFERS: TOILET - STEP 1: Does the patient require the assistance of a person or device, or need extra time with toilet transfe rs? Yes. TRANSFERS: TOILET - STEP 2: Does the patient require the assistance of a helper? Yes. TRANSFERS: TOILET - STEP 3: How much assistance does the patient require from the helper? Patient performs half or more of the tr ansferring tasks TRANSFERS: TOILET - STEP 4: Does the patient need only incidental help such as contact guard or steadying during toilet transfer? Yes. TRANSFERS: TOILET - SCORE: 4-MIN TRANSFERS: SHOWER: Activity did not occur on this shift TRANSFERS: SHOWER - SCORE: 0-UNK TRANSFERS: TUB: Activity did not occur on this shift TRANSFERS: TUB - SCORE: 0-UNK LOCOMOTION: WALK: Activity did not occur on this shift LOCOMOTION: WALK - SCORE: 0-UNK LOCOMOTION: WHEELCHAIR: LOCOMOTION: WHEELCHAIR - STEP 1: Does the patient need help to go 150 feet in a wheelchair? Yes. LOCOMOTION: WHEELCHAIR - STEP 2: How much assistance does the patient need from the helper? Only supervision, cuing, or coaxing LOCOMOTION: WHEELCHAIR - SCORE: 5-SUP COMPREHENSION: COMPREHENSION: TYPE: Both COMPREHENSION - STEP 1: Does the patient require help from a person or device, or need extra time to understand complex and a bstract ideas (such as current events, finances, discharge planning, medical issues, relationships, e tc)? No. COMPREHENSION - STEP 2: Does the patient need extra time, require an assistive device (such as glasses for visual comprehensi on or a hearing aid for auditory comprehension) or does s/he have mild difficulty understanding compl ex and abstract information? Yes. COMPREHENSION - SCORE: 6-BRI EXPRESSION EXPRESSION: TYPE: Both EXPRESSION - STEP 1: Does the patient require help from a person or device, or need extra time expressing complex and abst ract ideas (such as current events, finances, discharge planning, medical issues, relationships, etc) ? No. EXPRESSION - STEP 2: Does the patient need extra time, require an assistive device (such as augmentive communication syste m or a communication board), OR does s/he have mild difficulty expressing complex and abstract ideas (including mild dysarthria or mild word-find problems)? Yes. EXPRESSION - SCORE: 6-BRI SOCIAL INTERACTION: SOCIAL INTERACTION - STEP 1: Does the patient require a helper to interact with others in social and therapeutic situations? No. SOCIAL INTERACTION - STEP 2: Does the patient need extra time in social situations, OR does s/he interact with staff, other patien ts, and family members ONLY in structured environments, OR does s/he require medication for social in teraction? Yes, patient needs extra time SOCIAL INTERACTION - SCORE: 6-BRI PROBLEM SOLVING: PROBLEM SOLVING - STEP 1: Does the patient need help from a person or device, or need extra time to solve complex problems such as managing a checking account or confronting interpersonal problems? No. PROBLEM SOLVING - STEP 2: Does the patient require extra time to make decisions or solve problems, OR does s/he have slight dif ficulty reading, initiating, or self-correcting in unfamiliar situations? Yes, patient needs extra ti me. PROBLEM SOLVING - SCORE: 6-BRI MEMORY: MEMORY - STEP 1: Does the patient need help from a person or device, or need extra time to remember frequently encount ered people, daily routines, and executing requests? No. MEMORY - STEP 2: Does the patient have slight difficulty recognizing frequently encountered people, daily routines, or executing requests without the need for repetition or using self-initiated or environmental cues to remember? Yes. MEMORY - SCORE: 6-BRI SIGNATURE PANEL: The following modified sections: Eating - Score, Grooming - Score, Bathing - Score, Dressing - Upper Body - Score, Dressing - Lower Body - Score, Toileting - Score, Bladder Management - Score, Bowel Man agement - Score, Transfers: Bed, Chair, Wheelchair - Score, Transfers: Toilet - Score, Transfers: Ivon wer - Score, Transfers: Tub - Score, Locomotion: Walk - Score, Locomotion: Wheelchair - Score, Compre hension - Score, Expression - Score, Social Interaction - Score, Problem Solving - Score, Memory - Sc ore were [electronically] signed by Kylie Toussaint C.N.A. on WedNov 02 2018 13:57:06 T-0600 (Cent[facility] Standard Time)
--- NOTE | 2018-11-02 14:18 | FAST ---
ENCOUNTER DATE AND TIME: 11/02/2018 08:00 (ARCHITECTURAL DRAFTSMAN) NAME TENA ESTRADA DATE OF : 1960 DATE OF ADMISSION: 10/21/2018 22:32 (ARCHITECTURAL DRAFTSMAN) PHONE: AGE: 57 SSN# [id number] GENDER: Male ENCOUNTER PHYSICIAN: Dr. Jesus Chandler M.D. ADMISSION DIAGNOSIS: - Debility 16 - Debility (16) SMALL BOWEL OBSTRUCTION. EATING: Activity did not occur on this shift EATING - SCORE: 0-UNK GROOMING: Activity did not occur on this shift GROOMING - SCORE: 0-UNK BATHING: Activity did not occur on this shift BATHING - SCORE: 0-UNK DRESSING - UPPER BODY: Activity did not occur on this shift Patient is not dressing in public clothing ARTICLES SCORE Total number of steps: 0 DRESSING - UPPER BODY - SCORE: 0-UNK DRESSING - LOWER BODY: Activity did not occur on this shift Patient is not dressing in public clothing ARTICLES SCORE Total number of steps: 0 DRESSING - LOWER BODY - SCORE: 0-UNK TOILETING: Activity did not occur on this shift TOILETING - SCORE: 0-UNK BLADDER MANAGEMENT: Activity did not occur on this shift BLADDER MANAGEMENT - SCORE: 7-IND BOWEL MANAGEMENT: Activity did not occur on this shift BOWEL MANAGEMENT - SCORE: 7-IND TRANSFERS: BED, CHAIR, WHEELCHAIR: TRANSFERS: BED, CHAIR, WHEELCHAIR - STEP 1: Does the patient require assistance of a person or device, or need extra time with bed, chair, or whe elchair transfers? Yes. TRANSFERS: BED, CHAIR, WHEELCHAIR - STEP 2: Does the patient require the assistance of a helper? No. Patient only requires an assistive device fo r bed, chair, wheelchair transfers such as a sliding board, grab bar, or brace, OR s/he takes more th an reasonable time, OR there is a safety concern when s/he performs the transfers TRANSFERS: BED, CHAIR, WHEELCHAIR - SCORE: 6-BRI TRANSFERS: TOILET: Activity did not occur on this shift TRANSFERS: TOILET - SCORE: 0-UNK TRANSFERS: SHOWER: Activity did not occur on this shift TRANSFERS: SHOWER - SCORE: 0-UNK TRANSFERS: TUB: Activity did not occur on this shift TRANSFERS: TUB - SCORE: 0-UNK LOCOMOTION: WALK: LOCOMOTION: WALK - STEP 1: Does the patient need help from a person or device, or need extra time to walk 150 feet? No. LOCOMOTION: WALK - STEP 2: Does the patient need an assistive device (such as an orthosis, prosthesis, crutches, or walker) to g o 150 feet, OR does s/he take more than reasonable time, OR is there a concern for safety? Yes, the p atient needs an assistive device LOCOMOTION: WALK - SCORE: 6-BRI LOCOMOTION: WHEELCHAIR: LOCOMOTION: WHEELCHAIR - STEP 1: Does the patient need help to go 150 feet in a wheelchair? No. LOCOMOTION: WHEELCHAIR - SCORE: 6-BRI LOCOMOTION: STAIRS: LOCOMOTION: STAIRS - STEP 1: Does the patient need help to go up and down 12 to 14 stairs? No. LOCOMOTION: STAIRS - STEP 2: Does the patient require an assistive device - such as handrails or cane - to go up and down one flig ht of stairs, OR does s/he take more than reasonable time, OR is there a concern for safety? Yes, the patient requires an assistive device LOCOMOTION: STAIRS - SCORE: 6-BRI COMPREHENSION: COMPREHENSION - SCORE: 0-UNK EXPRESSION EXPRESSION - SCORE: 0-UNK SOCIAL INTERACTION: SOCIAL INTERACTION - SCORE: 0-UNK PROBLEM SOLVING: PROBLEM SOLVING - SCORE: 0-UNK MEMORY: MEMORY - SCORE: 0-UNK SIGNATURE PANEL: The following modified sections: Transfers: Bed, Chair, Wheelchair - Score, Transfers: Toilet - Score , Locomotion: Walk - Score, Locomotion: Wheelchair - Score, Locomotion: Stairs - Score were [electron stacey] signed by Ez Aguirre PT on WedNov 02 2018 14:17:42 GMT-0600 (Central Standard Time)
[2018-11-02] MEDS: RIVAROXABAN 20 MG TABLET PO SCH (16:43)
--- NOTE | 2018-11-02 23:10 | PN ---
Date of Progress Note: 11/02/2018 Subjective: This morning when I saw him, he was complaining of some suprapubic discomfort and reported that yesterday at the time of the straight cath, he saw some purulent discharge. Objective: Vital Signs: Reviewed. HEENT: Unremarkable. Lungs: Clear to auscultation. Heart: Sounds normal. Abdomen: Soft. Bowel sounds normal. No guarding, rigidity, tenderness, or distention. Extremities: Bilateral leg edema, better today than yesterday. Laboratory Data: Urine culture growing gram-negative rods, definite identification and sensitivity pending. Impression: 1. Urinary tract infection. 2. Debility. 3. Generalized weakness. 4. Paroxysmal atrial fibrillation. 5. Chronic steroid therapy. Plan: We will go ahead and discontinue Bactrim, start him on IV Rocephin while waiting on the urine culture results and we will continue other current medical management and physical therapy as per Dr. Chandler. Continue current diuretic medication, Prednisone and other medical management. JORDAN/MODL Voice ID: [id number] Report ID: [id number] VERONICA
--- NOTE | 2018-11-03 01:59 | FAST ---
SHIFT START DATE/TIME: 11/02/2018 19:00 (DRAWER IN JACQUARD LOOM) SHIFT END DATE/TIME: 11/03/2018 07:00 (DRAWER IN JACQUARD LOOM) NAME TENA ESTRADA DATE OF : 1960 DATE OF ADMISSION: 10/21/2018 22:32 (DRAWER IN JACQUARD LOOM) PHONE: AGE: 57 SSN# [id number] GENDER: Male ENCOUNTER PHYSICIAN: Dr. Jesus Chandler M.D. ADMISSION DIAGNOSIS: - Debility 16 - Debility (16) SMALL BOWEL OBSTRUCTION. EATING: Activity did not occur on this shift EATING - SCORE: 0-UNK GROOMING: Activity did not occur on this shift GROOMING - SCORE: 0-UNK BATHING: Activity did not occur on this shift BATHING - SCORE: 0-UNK DRESSING - UPPER BODY: Patient is not dressing in public clothing ARTICLES SCORE Total number of steps: 0 DRESSING - UPPER BODY - SCORE: 0-UNK DRESSING - LOWER BODY: Patient is not dressing in public clothing ARTICLES SCORE Total number of steps: 0 DRESSING - LOWER BODY - SCORE: 0-UNK TOILETING: TOILETING - STEP 1: Does the patient require the assistance of a person or device, or need extra time with toileting? Yes . TOILETING - STEP 2: Does the patient require the assistance of a helper? Yes. TOILETING - STEP 3: How much assistance does the patient require from the helper? Only supervision TOILETING - SCORE: 5-SUP BLADDER MANAGEMENT: BLADDER MANAGEMENT - STEP 1: Does the patient control the bladder completely and intentionally without equipment or devices or med ications, and is always continent? Yes. BLADDER MANAGEMENT - SCORE: 7-IND BOWEL MANAGEMENT: Activity did not occur on this shift BOWEL MANAGEMENT - SCORE: 7-IND TRANSFERS: BED, CHAIR, WHEELCHAIR: Activity did not occur on this shift TRANSFERS: BED, CHAIR, WHEELCHAIR - SCORE: 0-UNK TRANSFERS: TOILET: Activity did not occur on this shift TRANSFERS: TOILET - SCORE: 0-UNK TRANSFERS: SHOWER: Activity did not occur on this shift TRANSFERS: SHOWER - SCORE: 0-UNK TRANSFERS: TUB: Activity did not occur on this shift TRANSFERS: TUB - SCORE: 0-UNK LOCOMOTION: WALK: Activity did not occur on this shift LOCOMOTION: WALK - SCORE: 0-UNK LOCOMOTION: WHEELCHAIR: Activity did not occur on this shift LOCOMOTION: WHEELCHAIR - SCORE: 0-UNK COMPREHENSION: COMPREHENSION: TYPE: Both COMPREHENSION - STEP 1: Does the patient require help from a person or device, or need extra time to understand complex and a bstract ideas (such as current events, finances, discharge planning, medical issues, relationships, e tc)? No. COMPREHENSION - STEP 2: Does the patient need extra time, require an assistive device (such as glasses for visual comprehensi on or a hearing aid for auditory comprehension) or does s/he have mild difficulty understanding compl ex and abstract information? Yes. COMPREHENSION - SCORE: 6-BRI EXPRESSION EXPRESSION: TYPE: Both EXPRESSION - STEP 1: Does the patient require help from a person or device, or need extra time expressing complex and abst ract ideas (such as current events, finances, discharge planning, medical issues, relationships, etc) ? No. EXPRESSION - STEP 2: Does the patient need extra time, require an assistive device (such as augmentive communication syste m or a communication board), OR does s/he have mild difficulty expressing complex and abstract ideas (including mild dysarthria or mild word-find problems)? No. EXPRESSION - SCORE: 7-IND SOCIAL INTERACTION: SOCIAL INTERACTION - STEP 1: Does the patient require a helper to interact with others in social and therapeutic situations? No. SOCIAL INTERACTION - STEP 2: Does the patient need extra time in social situations, OR does s/he interact with staff, other patien ts, and family members ONLY in structured environments, OR does s/he require medication for social in teraction? No. SOCIAL INTERACTION - SCORE: 7-IND PROBLEM SOLVING: PROBLEM SOLVING - STEP 1: Does the patient need help from a person or device, or need extra time to solve complex problems such as managing a checking account or confronting interpersonal problems? No. PROBLEM SOLVING - STEP 2: Does the patient require extra time to make decisions or solve problems, OR does s/he have slight dif ficulty reading, initiating, or self-correcting in unfamiliar situations? No. PROBLEM SOLVING - SCORE: 7-IND MEMORY: MEMORY - STEP 1: Does the patient need help from a person or device, or need extra time to remember frequently encount ered people, daily routines, and executing requests? No. MEMORY - STEP 2: Does the patient have slight difficulty recognizing frequently encountered people, daily routines, or executing requests without the need for repetition or using self-initiated or environmental cues to remember? No. MEMORY - SCORE: 7-IND SIGNATURE PANEL: The following modified sections: Eating - Score, Grooming - Score, Dressing - Upper Body - Score, Rigoberto ssing - Lower Body - Score, Toileting - Score, Bladder Management - Score, Bowel Management - Score, Transfers: Bed, Chair, Wheelchair - Score, Transfers: Toilet - Score, Transfers: Shower - Score, Fraga sfers: Tub - Score, Locomotion: Walk - Score, Locomotion: Wheelchair - Score, Comprehension - Score, Expression - Score, Social Interaction - Score, Problem Solving - Score, Memory - Score were [electro nically] signed by Ciara Crane CNA on WedNov 03 2018 01:58:50 GMT-0600 (Central Standard Time)
[2018-11-03] MEDS: PROMETHAZINE 25 MG/ML VIAL IV PRN ×4 (04:38→22:50)
[2018-11-03] MEDS: SOTALOL HCL 80 MG TAB PO SCH ×2 (05:08→16:51)
[2018-11-03] MEDS: PANTOPRAZOLE 40MG TABLET PO SCH (05:08)
[2018-11-03 06:29] LABS: Absolute Lymphocytes (CBC) 3.8 K/uL (0.7-4.9); Absolute Monocytes 0.9 K/uL (0.1-1.3); Absolute Neutrophil 4.4 K/uL (1.8-8.0); Albumin 2.9 g/dL (3.4-5.0); Basophils % 0.5 % (0-1.3); Eosinophils % 2.1 % (0-4.4); Hematocrit 34.3 % (39.6-49.0); Lymphocytes % 40.5 % (15.3-44.8); MCH 31.1 pg (27.0-35.0); MCV 95.1 fL (80-100); MPV 8.8 fL (7.6-11.3); Monocytes % 9.8 % (3.3-12.3); Potassium 3.5 mmol/L (3.5-5.1); Prealbumin 26.6 mg/dL (20-40); RBC Red Blood Cell Count 3.61 M/uL (4.33-5.43)
[2018-11-03] MEDS: FE SULF/FA/VIT B COMP & C TAB PO SCH (08:00)
[2018-11-03] MEDS: PROMOD 30 ML DOSE PO SCH ×2 (08:00→20:00)
[2018-11-03] MEDS: levoFLOXacin 500 MG TAB PO SCH (08:00)
[2018-11-03] MEDS: POLYETHYL GLY 3350 17 GM/DOSE PO SCH (08:00)
[2018-11-03] MEDS: SPIRONOLACTONE 25 MG TABLET PO SCH ×2 (08:15→20:41)
[2018-11-03] MEDS: CEFTRIAXONE/SWI 1gm 1 GM/10 ML SYR IV SCH ×2 (08:15→20:41)
[2018-11-03] MEDS: CHLORTHALIDONE 25 MG TAB PO SCH (08:15)
[2018-11-03] MEDS: predniSONE 10 MG TAB PO SCH (08:16)
[2018-11-03] MEDS: FERROUS SULFATE 325 MG TAB PO SCH (08:16)
[2018-11-03] MEDS: DOCUSATE NA/SENNA CONC 1 TAB PO SCH ×2 (08:16→20:41)
[2018-11-03] MEDS: FOLIC ACID 1 MG TABLET PO SCH (08:16)
[2018-11-03] MEDS: DULOXETINE 30 MG CAP PO SCH (08:16)
[2018-11-03] MEDS: MULTIVITAMIN TAB PO SCH (08:16)
[2018-11-03] MEDS: HYDROCODONE/APAP 10/325 TAB PO PRN ×3 (08:16→22:50)
[2018-11-03] MEDS: predniSONE 5 MG TAB PO SCH (08:16)
--- NOTE | 2018-11-03 14:06 | FAST ---
SHIFT START DATE/TIME: 11/03/2018 07:00 (OPERATING TABLE ASSEMBLER) SHIFT END DATE/TIME: 11/03/2018 19:00 (OPERATING TABLE ASSEMBLER) NAME TENA ESTRADA DATE OF : 1960 DATE OF ADMISSION: 10/21/2018 22:32 (OPERATING TABLE ASSEMBLER) PHONE: AGE: 57 SSN# [id number] GENDER: Male ENCOUNTER PHYSICIAN: Dr. Jesus Chandler M.D. ADMISSION DIAGNOSIS: - Debility 16 - Debility (16) SMALL BOWEL OBSTRUCTION. EATING: EATING - STEP 1: Does the patient require the assistance of a person or device, or need extra time when eating? Yes. EATING - STEP 2: Does the patient require the assistance of a helper? No, patient only requires an assistive device, O R s/he takes more than reasonable time to eat, OR there is a safety concern, OR s/he requires modifie d food consistency EATING - SCORE: 6-BRI GROOMING: Activity did not occur on this shift GROOMING - SCORE: 0-UNK GROOMING - COMMENTS: assist with grooming BATHING: Activity did not occur on this shift BATHING - SCORE: 0-UNK DRESSING - UPPER BODY: Activity did not occur on this shift ARTICLES SCORE Total number of steps: 0 DRESSING - UPPER BODY - SCORE: 0-UNK DRESSING - UPPER BODY - COMMENTS: assist with dressing DRESSING - LOWER BODY: Activity did not occur on this shift ARTICLES SCORE Total number of steps: 0 DRESSING - LOWER BODY - SCORE: 0-UNK DRESSING - LOWER BODY - COMMENTS: assist with dressing TOILETING: TOILETING - STEP 1: Does the patient require the assistance of a person or device, or need extra time with toileting? Yes . TOILETING - STEP 2: Does the patient require the assistance of a helper? Yes. TOILETING - STEP 3: How much assistance does the patient require from the helper? Only supervision TOILETING - SCORE: 5-SUP BLADDER MANAGEMENT: BLADDER MANAGEMENT - STEP 1: Does the patient control the bladder completely and intentionally without equipment or devices or med ications, and is always continent? No. BLADDER MANAGEMENT - STEP 2: Does the patient require the assistance of a helper? Yes. BLADDER MANAGEMENT - STEP 3: How much assistance does the patient require from the helper? Only set-up of equipment - such as plac ing it within reach of the patient or emptying a device - to maintain either satisfactory voiding pat tern or managing an external device, such as an absorbent pad, ileal device, or catheter BLADDER MANAGEMENT - SCORE: 5-SUP BLADDER MANAGEMENT - FREQUENCY OF ACCIDENTS: BLADDER MANAGEMENT(FA) - STEP 1: How many accidents has the patient had during the current shift? 0 BOWEL MANAGEMENT: Activity did not occur on this shift BOWEL MANAGEMENT - SCORE: 7-IND BOWEL MANAGEMENT - FREQUENCY OF ACCIDENTS: BOWEL MANAGEMENT(FA) - STEP 1: How many accidents has the patient had during the current shift? 0 TRANSFERS: BED, CHAIR, WHEELCHAIR: TRANSFERS: BED, CHAIR, WHEELCHAIR - STEP 1: Does the patient require assistance of a person or device, or need extra time with bed, chair, or whe elchair transfers? Yes. TRANSFERS: BED, CHAIR, WHEELCHAIR - STEP 2: Does the patient require the assistance of a helper? Yes. TRANSFERS: BED, CHAIR, WHEELCHAIR - STEP 3: How much assistance does the patient require from the helper? Only supervision TRANSFERS: BED, CHAIR, WHEELCHAIR - SCORE: 5-SUP TRANSFERS: TOILET: TRANSFERS: TOILET - STEP 1: Does the patient require the assistance of a person or device, or need extra time with toilet transfe rs? Yes. TRANSFERS: TOILET - STEP 2: Does the patient require the assistance of a helper? Yes. TRANSFERS: TOILET - STEP 3: How much assistance does the patient require from the helper? Patient performs half or more of the tr ansferring tasks TRANSFERS: TOILET - STEP 4: Does the patient need only incidental help such as contact guard or steadying during toilet transfer? Yes. TRANSFERS: TOILET - SCORE: 4-MIN TRANSFERS: SHOWER: Activity did not occur on this shift TRANSFERS: SHOWER - SCORE: 0-UNK TRANSFERS: TUB: Activity did not occur on this shift TRANSFERS: TUB - SCORE: 0-UNK LOCOMOTION: WALK: Activity did not occur on this shift LOCOMOTION: WALK - SCORE: 0-UNK LOCOMOTION: WHEELCHAIR: LOCOMOTION: WHEELCHAIR - STEP 1: Does the patient need help to go 150 feet in a wheelchair? Yes. LOCOMOTION: WHEELCHAIR - STEP 2: How much assistance does the patient need from the helper? Only supervision, cuing, or coaxing LOCOMOTION: WHEELCHAIR - SCORE: 5-SUP COMPREHENSION: COMPREHENSION: TYPE: Both COMPREHENSION - STEP 1: Does the patient require help from a person or device, or need extra time to understand complex and a bstract ideas (such as current events, finances, discharge planning, medical issues, relationships, e tc)? No. COMPREHENSION - STEP 2: Does the patient need extra time, require an assistive device (such as glasses for visual comprehensi on or a hearing aid for auditory comprehension) or does s/he have mild difficulty understanding compl ex and abstract information? Yes. COMPREHENSION - SCORE: 6-BRI EXPRESSION EXPRESSION: TYPE: Both EXPRESSION - STEP 1: Does the patient require help from a person or device, or need extra time expressing complex and abst ract ideas (such as current events, finances, discharge planning, medical issues, relationships, etc) ? No. EXPRESSION - STEP 2: Does the patient need extra time, require an assistive device (such as augmentive communication syste m or a communication board), OR does s/he have mild difficulty expressing complex and abstract ideas (including mild dysarthria or mild word-find problems)? Yes. EXPRESSION - SCORE: 6-BRI SOCIAL INTERACTION: SOCIAL INTERACTION - STEP 1: Does the patient require a helper to interact with others in social and therapeutic situations? No. SOCIAL INTERACTION - STEP 2: Does the patient need extra time in social situations, OR does s/he interact with staff, other patien ts, and family members ONLY in structured environments, OR does s/he require medication for social in teraction? No. SOCIAL INTERACTION - SCORE: 7-IND PROBLEM SOLVING: PROBLEM SOLVING - STEP 1: Does the patient need help from a person or device, or need extra time to solve complex problems such as managing a checking account or confronting interpersonal problems? No. PROBLEM SOLVING - STEP 2: Does the patient require extra time to make decisions or solve problems, OR does s/he have slight dif ficulty reading, initiating, or self-correcting in unfamiliar situations? Yes, patient needs extra ti me. PROBLEM SOLVING - SCORE: 6-BRI MEMORY: MEMORY - STEP 1: Does the patient need help from a person or device, or need extra time to remember frequently encount ered people, daily routines, and executing requests? No. MEMORY - STEP 2: Does the patient have slight difficulty recognizing frequently encountered people, daily routines, or executing requests without the need for repetition or using self-initiated or environmental cues to remember? No. MEMORY - SCORE: 7-IND SIGNATURE PANEL: The following modified sections: Eating - Score, Grooming - Score, Bathing - Score, Dressing - Upper Body - Score, Dressing - Upper Body - Comments:, Grooming - Comments:, Dressing - Lower Body - Score, Dressing - Lower Body - Comments:, Toileting - Score, Bladder Management - Score, Bowel Management - Score, Transfers: Bed, Chair, Wheelchair - Score, Transfers: Toilet - Score, Transfers: Shower - Sco re, Transfers: Tub - Score, Locomotion: Walk - Score, Locomotion: Wheelchair - Score, Comprehension - Score, Expression - Score, Social Interaction - Score, Problem Solving - Score, Memory - Score were [electronically] signed by Kylie Toussaint C.N.A. on WedNov 03 2018 14:05:24 T-0600 (Central Standar d Time)
--- NOTE | 2018-11-03 15:55 | FAST ---
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 Jesus Chandler M.D. ADMISSION DIAGNOSIS: - Debility 16 - Debility (16) SMALL BOWEL OBSTRUCTION. EATING: Activity did not occur on this shift EATING - SCORE: 0-UNK GROOMING: Activity did not occur on this shift GROOMING - SCORE: 0-UNK BATHING: Activity did not occur on this shift BATHING - SCORE: 0-UNK DRESSING - UPPER BODY: Activity did not occur on this shift Patient is not dressing in public clothing ARTICLES SCORE Total number of steps: 0 DRESSING - UPPER BODY - SCORE: 0-UNK DRESSING - LOWER BODY: Activity did not occur on this shift Patient is not dressing in public clothing ARTICLES SCORE Total number of steps: 0 DRESSING - LOWER BODY - SCORE: 0-UNK TOILETING: Activity did not occur on this shift TOILETING - SCORE: 0-UNK BLADDER MANAGEMENT: Activity did not occur on this shift BLADDER MANAGEMENT - SCORE: 7-IND BOWEL MANAGEMENT: Activity did not occur on this shift BOWEL MANAGEMENT - SCORE: 7-IND TRANSFERS: BED, CHAIR, WHEELCHAIR: TRANSFERS: BED, CHAIR, WHEELCHAIR - STEP 1: Does the patient require assistance of a person or device, or need extra time with bed, chair, or whe elchair transfers? Yes. TRANSFERS: BED, CHAIR, WHEELCHAIR - STEP 2: Does the patient require the assistance of a helper? No. Patient only requires an assistive device fo r bed, chair, wheelchair transfers such as a sliding board, grab bar, or brace, OR s/he takes more th an reasonable time, OR there is a safety concern when s/he performs the transfers TRANSFERS: BED, CHAIR, WHEELCHAIR - SCORE: 6-BRI TRANSFERS: TOILET: Activity did not occur on this shift TRANSFERS: TOILET - SCORE: 0-UNK TRANSFERS: SHOWER: Activity did not occur on this shift TRANSFERS: SHOWER - SCORE: 0-UNK TRANSFERS: TUB: Activity did not occur on this shift TRANSFERS: TUB - SCORE: 0-UNK LOCOMOTION: WALK: LOCOMOTION: WALK - STEP 1: Does the patient need help from a person or device, or need extra time to walk 150 feet? No. LOCOMOTION: WALK - STEP 2: Does the patient need an assistive device (such as an orthosis, prosthesis, crutches, or walker) to g o 150 feet, OR does s/he take more than reasonable time, OR is there a concern for safety? Yes, the p atient needs an assistive device LOCOMOTION: WALK - SCORE: 6-BRI LOCOMOTION: WHEELCHAIR: LOCOMOTION: WHEELCHAIR - STEP 1: Does the patient need help to go 150 feet in a wheelchair? No. LOCOMOTION: WHEELCHAIR - SCORE: 6-BRI LOCOMOTION: STAIRS: LOCOMOTION: STAIRS - STEP 1: Does the patient need help to go up and down 12 to 14 stairs? No. LOCOMOTION: STAIRS - STEP 2: Does the patient require an assistive device - such as handrails or cane - to go up and down one flig ht of stairs, OR does s/he take more than reasonable time, OR is there a concern for safety? Yes, the patient requires an assistive device LOCOMOTION: STAIRS - SCORE: 6-BRI COMPREHENSION: COMPREHENSION - SCORE: 0-UNK EXPRESSION EXPRESSION - SCORE: 0-UNK SOCIAL INTERACTION: SOCIAL INTERACTION - SCORE: 0-UNK PROBLEM SOLVING: PROBLEM SOLVING - SCORE: 0-UNK MEMORY: MEMORY - SCORE: 0-UNK SIGNATURE PANEL: The following modified sections: Transfers: Bed, Chair, Wheelchair - Score, Transfers: Toilet - Score , Locomotion: Walk - Score, Locomotion: Wheelchair - Score, Locomotion: Stairs - Score were [electron icallsyed] signed by Lamberto Corral PTA on WedNov 03 2018 15:54:37 GMT-0600 (Central Standard Time)
[2018-11-03] MEDS: RIVAROXABAN 20 MG TABLET PO SCH (16:52)
--- NOTE | 2018-11-03 17:54 | R.PN ---
ENCOUNTER DATE AND TIME: 11/03/2018 17:52 (SAL[employer]URANCE) NAME TENA ESTRADA DATE OF : 1960 DATE OF ADMISSION: 10/21/2018 22:32 (SAL[employer] INSURANCE) SMALL BOWEL OBSTRUCTIONCHIEF COMPLAINT: Small bowel obstruction. Status post abdominal surgery SUBJECTIVE: Pt denied any Shortness of Breath. Pt denied any depression. Ambulated 1000' with modified independence using a rolling walker. Posterior propelled wheelchair 500 ' with bilateral lower extremities. Up and down 15 steps with modified independence. Repeat urinalysis sows positive nitrites, 2+ esterase and > 50 bacteria. He reports pus in the urine. Ambulated 500' with modified independence using a rolling walker. VITAL SIGNS Temperature: 97.6 F SBP/DBP: 127/70 Pulse: 75 Resp: 16 MEDICATION ALLERGIES: Demerol REMICADE ENVIRONMENTAL ALLERGIES: None Known - Substance Allergies None Known - Other Allergies LATEX NURSING: - Shower allowing shower ACTIVITIES OOB only with supervision THERAPIES: - Occupational Therapy Evaluate and Treat. - Physical Therapy Evaluate and Treat. PHYSICAL EXAM - Gen Alert and awake Lying in bed No apparent distress Oriented to: person, time, and place - Skin Healing surgical wound in the abdomen. - Eyes No abnormalities - ENMT No abnormalities - Neck No abnormalities - CVS RRR - Chest Incision is healing with good hemostasis. - Resp No wheezing - Abd +bowel sounds - GI Obese Deferred - No abnormalities - Ext Mild bilateral lower extremity edema. - MSK 4+/5 weakness in both lower extremities. - Neuro 4/5 strength bilaterally upper and lower extremities. - Psych No abnormalities ASSESSMENT: Pt. is a 57 yo Right-handed white male.On 10/05/2018 he was admitted to [facility] with diagno sis SMALL BOWEL OBSTRUCTION.His impairment category is Debility 16 - Debility (16).Pre-morbidly, Pt. was independent/mod-I in Communication, Social Cognition, Self-Care, Locomotion, Sphincter Control, and Transfers Control; and he had good Sphincter Control.Currently, he has deficits of Balance, Self- Care, Locomotion, Endurance, Safety Awareness, and Transfers Control.Pt. is now referred to [facility] for acute in-patient rehabilitation in order to maximize patient's functiona l independence in activities of daily living, strength, ROM, and mobility.- Rehab Goal Patient has realistic goal of being discharged at assistance level 6-Erasmo to reside at Home with Fam james/Relatives. MDM/PLAN: - Physical Therapy Gait dysfunction - to improve, our physical therapists will perform initial evaluation of pt's statu s upon admission and devise an individualized program for Gait Training, and Wheel Chair mobility Inability to transfer - to improve, our physical therapists will perform initial evaluation of pt's status upon admission and devise an individualized program for Bed mobility Need for home safety evaluation - to improve, our physical therapists will perform initial evaluatio n of pt's status upon admission and devise an individualized program for Home Evaluation Need in caregiver upon discharge - to improve, our physical therapists will perform initial evaluati on of pt's status upon admission and devise an individualized program for Caregiver Training Edema - to improve, our physical therapists will perform initial evaluation of pt's status upon admi ssion and devise an individualized program for Elevation Training, and Lymphedema Therapy New precaution - to improve, our physical therapists will perform initial evaluation of pt's status upon admission and devise an individualized program for Patient precaution education Having wound - to improve, our physical therapists will perform initial evaluation of pt's status up on admission and devise an individualized program for Wound Care Poor balance - to improve, our physical therapists will perform initial evaluation of pt's status up on admission and devise an individualized program for Balance Training Poor endurance - to improve, our physical therapists will perform initial evaluation of pt's status upon admission and devise an individualized program for Endurance Training Weakness - to improve, our physical therapists will perform initial evaluation of pt's status upon a dmission and devise an individualized program for Aquatic Therapy, Neuromuscular Reeducation, and Str engthening Achieving independence - to improve, our physical therapists will perform initial evaluation of pt's status upon admission and devise an individualized program for Community Reintegration Activities - Occupational Therapy ADL deficits - to improve, our occupation therapists will perform initial evaluation of pt's status upon admission and devise an individualized program for Bathing, Bed mobility, Community Reintegratio n, Cooking, Dressing, Eating, Fine Motor Skills, Grooming, Homemaking, Kitchen Mobility, Laundry, Pat ient Education, Safety Awareness, Splinting - Positioning, Transfers(Toilet, Tub, Shower), and Wheel Chair Management Need for healthcare prof - to improve, our occupation therapists will perform initial evaluation of pt's status upon admission and devise an individualized program for Caregiver Training Weakness - to improve, our occupation therapists will perform initial evaluation of pt's status upon admission and devise an individualized program for Aquatic Therapy, Balance, Endurance, UE ROM, and UE strengthening - Diet Type Continue BARIATRIC FULLS - Diet - Liquid Texture Continue Regular - Tube Feed Continue N/A - Diet - Solid Texture Continue Regular - Shower allowing shower FUNCTIONAL STATUS: UPDATED AT WEEKLY TEAM CONFERENCE - Bladder Same accident frequency: 7-Ind - No accidents in the past 7 days - Bowel Same accident frequency: 7-Ind - No accidents in the past 7 days - Walking Same score based on distance walked: 3(>=150ft) - Wheelchair Same score based on distance traveled: 0(N/A) FUNCTIONAL STATUS: - Self-Care A. Eating sup B. Grooming sup C. Bathing sup D. Dressing - Upper sup E. Dressing - Lower sup F. Toileting Dep - Sphincter Control G: Bladder control Dep H: Bowel control Ind - Transfers Control I. Bed/Chair/Wheelchair sup J. Toilet Lila K. Tub/Shower Ind - Locomotion L. Walk/Wheelchair (C) Lila L. Walk/Wheelchair (W) Lila M. Stairs ADNO - Communication N. Comprehension (B) Ind O. Expression (B) Ind - Social Cognition P. Social Interaction Ind Q. Problem Solving Ind R. Memory Ind - Endurance Fair - Balance Fair - Safety Awareness Fair CURRENT FUNC. DEFICITS: Balance, Self-Care, Locomotion, Endurance, Safety Awareness, and Transfers Control SIGNATURE PANEL: ([employer])
--- NOTE | 2018-11-04 00:40 | PN ---
Date of Progress Note: 11/03/2018 Subjective: The patient was seen this morning for followup. No new complaints or problems reported by patient. Lying in bed, not in distress. Suprapubic pain and discomfort he had yesterday has impr nica and denies any more pyuria. Objective: Vital Signs: Reviewed. HEENT: Unremarkable. Lungs: Clear to auscultation. Heart: Sounds normal. Abdomen: Soft. Bowel sounds normal. No guarding, rigidity, tenderness, or distention. Extremities: Trace leg edema, better today than yesterday. Laboratory Data: Urine culture came back showing Klebsiella. It is sensitive to all the antibiotics including current antibiotic that he is on ceftriaxone. Impression: 1.Urinary tract infection. 2.Urethral stricture. 3.Paroxysmal atrial fibrillation. 4.Chronic steroid therapy. 5.Chronic anticoagulation therapy. Plan: We will continue current antibiotic. Continue physical therapy under guidance of Dr. Chandler and our plan is to possibly discharge him to go home tomorrow depending on his condition. His white count yesterday was 11.4, this morning white count came down to 9.4 with hemoglobin 11.2 and platele t count of 178. Chemistry from today was unremarkable with sodium 140, potassium 3.5, chloride 103, bicarb 32, BUN 16, creatinine 0.90, glucos e 117. JORDAN/MODL Voice ID: [id number] Report ID: [id number]
--- NOTE | 2018-11-04 02:39 | FAST ---
SHIFT START DATE/TIME: 11/03/2018 19:00 (CORPORATE REPRESENTATIVE) SHIFT END DATE/TIME: 11/04/2018 07:00 (CORPORATE REPRESENTATIVE) NAME TENA ESTRADA DATE OF : 1960 DATE OF ADMISSION: 10/21/2018 22:32 (CORPORATE REPRESENTATIVE) PHONE: AGE: 57 SSN# [id number] GENDER: Male ENCOUNTER PHYSICIAN: Dr. Jesus Chandler M.D. ADMISSION DIAGNOSIS: - Debility 16 - Debility (16) SMALL BOWEL OBSTRUCTION. EATING: Activity did not occur on this shift EATING - SCORE: 0-UNK GROOMING: Activity did not occur on this shift GROOMING - SCORE: 0-UNK BATHING: Activity did not occur on this shift BATHING - SCORE: 0-UNK DRESSING - UPPER BODY: Patient is not dressing in public clothing ARTICLES SCORE Total number of steps: 0 DRESSING - UPPER BODY - SCORE: 0-UNK DRESSING - LOWER BODY: Patient is not dressing in public clothing ARTICLES SCORE Total number of steps: 0 DRESSING - LOWER BODY - SCORE: 0-UNK TOILETING: TOILETING - STEP 1: Does the patient require the assistance of a person or device, or need extra time with toileting? Yes . TOILETING - STEP 2: Does the patient require the assistance of a helper? Yes. TOILETING - STEP 3: How much assistance does the patient require from the helper? Only supervision TOILETING - SCORE: 5-SUP BLADDER MANAGEMENT: BLADDER MANAGEMENT - STEP 1: Does the patient control the bladder completely and intentionally without equipment or devices or med ications, and is always continent? Yes. BLADDER MANAGEMENT - SCORE: 7-IND BOWEL MANAGEMENT: Activity did not occur on this shift BOWEL MANAGEMENT - SCORE: 7-IND TRANSFERS: BED, CHAIR, WHEELCHAIR: Activity did not occur on this shift TRANSFERS: BED, CHAIR, WHEELCHAIR - SCORE: 0-UNK TRANSFERS: TOILET: Activity did not occur on this shift TRANSFERS: TOILET - SCORE: 0-UNK TRANSFERS: SHOWER: Activity did not occur on this shift TRANSFERS: SHOWER - SCORE: 0-UNK TRANSFERS: TUB: Activity did not occur on this shift TRANSFERS: TUB - SCORE: 0-UNK LOCOMOTION: WALK: Activity did not occur on this shift LOCOMOTION: WALK - SCORE: 0-UNK LOCOMOTION: WHEELCHAIR: Activity did not occur on this shift LOCOMOTION: WHEELCHAIR - SCORE: 0-UNK COMPREHENSION: COMPREHENSION: TYPE: Both COMPREHENSION - STEP 1: Does the patient require help from a person or device, or need extra time to understand complex and a bstract ideas (such as current events, finances, discharge planning, medical issues, relationships, e tc)? No. COMPREHENSION - STEP 2: Does the patient need extra time, require an assistive device (such as glasses for visual comprehensi on or a hearing aid for auditory comprehension) or does s/he have mild difficulty understanding compl ex and abstract information? Yes. COMPREHENSION - SCORE: 6-BRI EXPRESSION EXPRESSION: TYPE: Both EXPRESSION - STEP 1: Does the patient require help from a person or device, or need extra time expressing complex and abst ract ideas (such as current events, finances, discharge planning, medical issues, relationships, etc) ? No. EXPRESSION - STEP 2: Does the patient need extra time, require an assistive device (such as augmentive communication syste m or a communication board), OR does s/he have mild difficulty expressing complex and abstract ideas (including mild dysarthria or mild word-find problems)? No. EXPRESSION - SCORE: 7-IND SOCIAL INTERACTION: SOCIAL INTERACTION - STEP 1: Does the patient require a helper to interact with others in social and therapeutic situations? No. SOCIAL INTERACTION - STEP 2: Does the patient need extra time in social situations, OR does s/he interact with staff, other patien ts, and family members ONLY in structured environments, OR does s/he require medication for social in teraction? Yes, patient needs extra time SOCIAL INTERACTION - SCORE: 6-BRI PROBLEM SOLVING: PROBLEM SOLVING - STEP 1: Does the patient need help from a person or device, or need extra time to solve complex problems such as managing a checking account or confronting interpersonal problems? No. PROBLEM SOLVING - STEP 2: Does the patient require extra time to make decisions or solve problems, OR does s/he have slight dif ficulty reading, initiating, or self-correcting in unfamiliar situations? No. PROBLEM SOLVING - SCORE: 7-IND MEMORY: MEMORY - STEP 1: Does the patient need help from a person or device, or need extra time to remember frequently encount ered people, daily routines, and executing requests? No. MEMORY - STEP 2: Does the patient have slight difficulty recognizing frequently encountered people, daily routines, or executing requests without the need for repetition or using self-initiated or environmental cues to remember? No. MEMORY - SCORE: 7-IND SIGNATURE PANEL: The following modified sections: Eating - Score, Grooming - Score, Dressing - Upper Body - Score, Rigoberto ssing - Lower Body - Score, Toileting - Score, Bladder Management - Score, Bowel Management - Score, Transfers: Bed, Chair, Wheelchair - Score, Transfers: Toilet - Score, Transfers: Shower - Score, Fraga sfers: Tub - Score, Locomotion: Walk - Score, Locomotion: Wheelchair - Score, Comprehension - Score, Expression - Score, Social Interaction - Score, Problem Solving - Score, Memory - Score were [electro nically] signed by Ciara Crane CNA on WedNov 04 2018 02:39:12 GMT-0600 (Central Standard Time)
[2018-11-04] MEDS: SOTALOL HCL 80 MG TAB PO SCH (05:19)
[2018-11-04] MEDS: PROMETHAZINE 25 MG/ML VIAL IV PRN ×2 (05:19→10:50)
[2018-11-04] MEDS: PANTOPRAZOLE 40MG TABLET PO SCH (05:20)
[2018-11-04 07:30] VITALS: BP 115/63; TEMP 96.6
[2018-11-04] MEDS: POLYETHYL GLY 3350 17 GM/DOSE PO SCH (08:00)
[2018-11-04] MEDS: PROMOD 30 ML DOSE PO SCH (08:00)
[2018-11-04] MEDS: CEFTRIAXONE/SWI 1gm 1 GM/10 ML SYR IV SCH (08:00)
[2018-11-04] MEDS: levoFLOXacin 500 MG TAB PO SCH (08:00)
[2018-11-04] MEDS: HYDROCODONE/APAP 10/325 TAB PO PRN (09:01)
[2018-11-04] MEDS: DULOXETINE 30 MG CAP PO SCH (09:02)
[2018-11-04] MEDS: FE SULF/FA/VIT B COMP & C TAB PO SCH (09:02)
[2018-11-04] MEDS: DOCUSATE NA/SENNA CONC 1 TAB PO SCH (09:02)
[2018-11-04] MEDS: MULTIVITAMIN TAB PO SCH (09:02)
[2018-11-04] MEDS: SPIRONOLACTONE 25 MG TABLET PO SCH (09:02)
[2018-11-04] MEDS: FERROUS SULFATE 325 MG TAB PO SCH (09:02)
[2018-11-04] MEDS: predniSONE 5 MG TAB PO SCH (09:03)
[2018-11-04] MEDS: predniSONE 10 MG TAB PO SCH (09:03)
[2018-11-04] MEDS: FOLIC ACID 1 MG TABLET PO SCH (09:03)
[2018-11-04] MEDS: CHLORTHALIDONE 25 MG TAB PO SCH (09:03)
--- NOTE | 2018-11-04 09:05 | FAST ---
SHIFT START DATE/TIME: 11/04/2018 07:00 (ASSOCIATE PROFESSOR OF MEDIA ARTS) SHIFT END DATE/TIME: 11/04/2018 19:00 (ASSOCIATE PROFESSOR OF MEDIA ARTS) NAME TENA ESTRADA DATE OF : 1960 DATE OF ADMISSION: 10/21/2018 22:32 (ASSOCIATE PROFESSOR OF MEDIA ARTS) PHONE: AGE: 57 SSN# [id number] GENDER: Male ENCOUNTER PHYSICIAN: Dr. Jesus Chandler M.D. ADMISSION DIAGNOSIS: - Debility 16 - Debility (16) SMALL BOWEL OBSTRUCTION. EATING: EATING - STEP 1: Does the patient require the assistance of a person or device, or need extra time when eating? No. EATING - SCORE: 7-IND GROOMING: GROOMING - STEP 1: Does the patient require the assistance of a person or device, or need extra time when grooming? No. GROOMING - SCORE: 7-IND BATHING: Activity did not occur on this shift BATHING - SCORE: 0-UNK DRESSING - UPPER BODY: ARTICLES SCORE Total number of steps: 0 DRESSING - UPPER BODY - STEP 1: Does the patient require help from a person or device, or need extra time when dressing above the [address]? Yes. DRESSING - UPPER BODY - STEP 2: Does the patient require the assistance of a helper? No. Patient only requires an assistive device, s uch as a button hook, velcro, or diesel technician mechanic. OR s/he takes more than reasonable time as s/he dresses the upper body. OR there is a concern for safety when s/he dresses the upper body DRESSING - UPPER BODY - SCORE: 6-BRI DRESSING - LOWER BODY: ARTICLES SCORE Total number of steps: 0 DRESSING - LOWER BODY - STEP 1: Does the patient require help from a person or device, or need extra time when dressing below the monae st? Yes. DRESSING - LOWER BODY - STEP 2: Does the patient require the assistance of a helper? No. Patient requires an assistive device such as a diesel technician mechanic. OR s/he takes more than reasonable time as s/he dresses the lower body, OR there is a con cern for safety when s/he dresses the lower body DRESSING - LOWER BODY - SCORE: 6-BRI TOILETING: TOILETING - STEP 1: Does the patient require the assistance of a person or device, or need extra time with toileting? No. TOILETING - SCORE: 7-IND BLADDER MANAGEMENT: BLADDER MANAGEMENT - STEP 1: Does the patient control the bladder completely and intentionally without equipment or devices or med ications, and is always continent? No. BLADDER MANAGEMENT - STEP 2: Does the patient require the assistance of a helper? No, patient requires and independently uses an a ssistive device, such as a urinal, bedpan, bedside commode, catheter, absorbent pad, or collecting de vice BLADDER MANAGEMENT - SCORE: 6-BRI BLADDER MANAGEMENT - FREQUENCY OF ACCIDENTS: BLADDER MANAGEMENT(FA) - STEP 1: How many accidents has the patient had during the current shift? 0 BOWEL MANAGEMENT: BOWEL MANAGEMENT - STEP 1: Does the patient control bowels completely and intentionally without equipment devices or medications AND is always continent? Yes. BOWEL MANAGEMENT - SCORE: 7-IND BOWEL MANAGEMENT - FREQUENCY OF ACCIDENTS: BOWEL MANAGEMENT(FA) - STEP 1: How many accidents has the patient had during the current shift? 0 TRANSFERS: BED, CHAIR, WHEELCHAIR: TRANSFERS: BED, CHAIR, WHEELCHAIR - STEP 1: Does the patient require assistance of a person or device, or need extra time with bed, chair, or whe elchair transfers? Yes. TRANSFERS: BED, CHAIR, WHEELCHAIR - STEP 2: Does the patient require the assistance of a helper? No. Patient only requires an assistive device fo r bed, chair, wheelchair transfers such as a sliding board, grab bar, or brace, OR s/he takes more th an reasonable time, OR there is a safety concern when s/he performs the transfers TRANSFERS: BED, CHAIR, WHEELCHAIR - SCORE: 6-BRI TRANSFERS: TOILET: TRANSFERS: TOILET - STEP 1: Does the patient require the assistance of a person or device, or need extra time with toilet transfe rs? Yes. TRANSFERS: TOILET - STEP 2: Does the patient require the assistance of a helper? No. Patient only requires an assistive device phelps ch as a grab bar or special seat, OR s/he takes more than reasonable time to perform toilet transfers , OR there is a safety concern when s/he performs toilet transfers. TRANSFERS: TOILET - SCORE: 6-BRI TRANSFERS: SHOWER: Activity did not occur on this shift TRANSFERS: SHOWER - SCORE: 0-UNK TRANSFERS: TUB: Activity did not occur on this shift TRANSFERS: TUB - SCORE: 0-UNK LOCOMOTION: WALK: Activity did not occur on this shift LOCOMOTION: WALK - SCORE: 0-UNK LOCOMOTION: WHEELCHAIR: Activity did not occur on this shift LOCOMOTION: WHEELCHAIR - SCORE: 0-UNK COMPREHENSION: COMPREHENSION - SCORE: 0-UNK EXPRESSION EXPRESSION - SCORE: 0-UNK SOCIAL INTERACTION: SOCIAL INTERACTION - SCORE: 0-UNK PROBLEM SOLVING: PROBLEM SOLVING - SCORE: 0-UNK MEMORY: MEMORY - SCORE: 0-UNK SIGNATURE PANEL: The following modified sections: Eating - Score, Grooming - Score, Bathing - Score, Dressing - Upper Body - Score, Dressing - Lower Body - Score, Toileting - Score, Bladder Management - Score, Bowel Man agement - Score, Transfers: Bed, Chair, Wheelchair - Score, Transfers: Toilet - Score, Transfers: Ivon wer - Score, Transfers: Tub - Score, Locomotion: Walk - Score, Locomotion: Wheelchair - Score, Compre hension - Score, Expression - Score, Social Interaction - Score, Problem Solving - Score, Memory - Sc ore were [electronically] signed by Carolina Joyce CNA on WedNov 04 2018 09:05:09 GMT-0600 (Centra l Standard Time)
--- NOTE | 2018-11-04 09:28 | P.RH.PN ---
Estimated Length of Stay: 14 Expected Discharge Date: 11/04/18 Discharge Disposition Plan: Home Family Support: Yes Senior Living Goal: Mobility, Transfers, Self Care Vital Signs: Last Vital Signs Temp 96.6 F L 11/04/18 07:15 Pulse 72 11/04/18 09:02 Resp 16 11/04/18 07:15 BP 115/63 11/04/18 09:02 Pulse Ox 97 11/04/18 07:15 Laboratory: Laboratory Last Values WBC 9.4 K/uL (4.3-10.9) D 11/03/18 05:57 RBC 3.61 M/uL (4.33-5.43) L 11/03/18 05:57 Hgb 11.2 g/dL (13.6-17.9) L 11/03/18 05:57 Hct 34.3 % (39.6-49.0) L 11/03/18 05:57 MCV 95.1 fL (80-100) 11/03/18 05:57 MCH 31.1 pg (27.0-35.0) 11/03/18 05:57 MCHC 32.7 g/dL (32.0-36.0) 11/03/18 05:57 RDW 15.7 % (12.1-15.2) H 11/03/18 05:57 Plt Count 178 K/uL (152-406) 11/03/18 05:57 MPV 8.8 fL (7.6-11.3) 11/03/18 05:57 Neutrophils % 47.1 % (41.7-73.7) 11/03/18 05:57 Lymphocytes % 40.5 % (15.3-44.8) 11/03/18 05:57 Monocytes % 9.8 % (3.3-12.3) 11/03/18 05:57 Eosinophils % 2.1 % (0-4.4) 11/03/18 05:57 Basophils % 0.5 % (0-1.3) 11/03/18 05:57 Absolute Neutrophils 4.4 K/uL (1.8-8.0) 11/03/18 05:57 Absolute Lymphocytes 3.8 K/uL (0.7-4.9) 11/03/18 05:57 Absolute Monocytes 0.9 K/uL (0.1-1.3) 11/03/18 05:57 Absolute Eosinophils 0.2 K/uL (0-0.5) 11/03/18 05:57 Absolute Basophils 0.0 K/uL (0-0.5) 11/03/18 05:57 Sodium 140 mmol/L (136-145) 11/03/18 05:57 Potassium 3.5 mmol/L (3.5-5.1) 11/03/18 05:57 Chloride 103 mmol/L (98-107) 11/03/18 05:57 Carbon Dioxide 32 mmol/L (21-32) 11/03/18 05:57 BUN 16 mg/dL (7-18) 11/03/18 05:57 Creatinine 0.90 mg/dL (0.55-1.3) 11/03/18 05:57 Estimated GFR 87 mL/min (=/>90) L 11/03/18 05:57 Glucose 117 mg/dL (74-106) H 11/03/18 05:57 POC Glucose 177 mg/dl (65-120) H 10/24/18 11:58 Hemoglobin A1c 7.8 % (4.2-6.3) H 10/23/18 06:24 Calcium 8.0 mg/dL (8.5-10.1) L 11/03/18 05:57 Magnesium 1.7 mg/dL (1.8-2.4) L 11/02/18 07:52 Total Bilirubin 0.3 mg/dL (0.2-1.0) 10/27/18 06:25 AST 7 U/L (15-37) L 10/27/18 06:25 ALT 27 U/L (12-78) 10/27/18 06:25 Alkaline Phosphatase 90 U/L (45-117) 10/27/18 06:25 Serum Total Protein 5.6 g/dL (6.4-8.2) L 10/27/18 06:25 Albumin 2.9 g/dL (3.4-5.0) L 11/03/18 05:57 Globulin 2.9 g/dL (2.3-3.5) 10/27/18 06:25 Albumin/Globulin Ratio 0.9 (1.1-1.8) L 10/27/18 06:25 Prealbumin 26.6 mg/dL (20-40) 11/03/18 05:57 Urine Color Yellow 10/31/18 18:03 Urine Appearance Clear 10/31/18 18:03 Urine pH 6.0 (5.0-7.0) 10/31/18 18:03 Ur Specific [place] 1.010 (1.005-1.030) 10/31/18 18:03 Urine Ketones Negative (NEG) 10/31/18 18:03 Urine Blood Negative (NEG) 10/31/18 18: Urine Nitrite Positive (NEG) H 10/31/18 18:03 Urine Bilirubin Negative (NEG) 10/31/18 18: Urine Urobilinogen 0.2 mg/dL (0.2-1.0) 10/31/18 18:03 Ur Leukocyte Esterase 2+ (NEG) H 10/31/18 18:03 Urine RBC <5 /HPF (NONE SEEN) 10/31/18 18:03 Urine WBC 20-50 /HPF (<5) H 10/31/18 18:03 Ur Squamous Epith Cells <5 /HPF (NONE SEEN) 10/31/18 18:03 Ur Urothelial Cells <5 /HPF (NONE SEEN) 10/31/18 18:03 Urine Bacteria >50 /HPF (NONE SEEN) H 10/31/18 18:03 Urine Culture Reflexed Not needed 10/31/18 18: Urine Glucose Negative (NEG) 10/31/18 18:03 Urine Total Protein Negative (NEG) 10/31/18 18:03 Weight: 407 lb 4 oz Wound Present: No Closed Surgical Incision Present: Yes Negative Pressure Wound Therapy Present: No Physician Update: He is doing very with physical and occupational therapy. He is ready for discharge and will do homehealth due to lack of transportation. His labs have been reviewed and are essentialy within normal limits except for mild anemia and slightly elevagted blood sugars. Medical Issues: Nausea- Phenergan 25mg IV Q6H PRN. Phenergan 12.5mg ND Q6H PRN. Phenergan 12.5mg PO Q6H PRN Pain Issues: [place] 10/325mg Q4H PO PRN Functional Improvement: Patient has met all short-term and long-term goals at this time and completes task w/ good overall safety awareness. Functional Improvement Occupational Therapy: PATIENT DEMONSTRATING GOOD PROGRESS TOWARD LTG SET IN POC. CONTINUES TO BENEFIT FROM FURTHER OT TO ADDRESS OVERALL STRENGHT/ENDURANCE TO IMPROVE FUNCTIONAL ACTIVITY TOLERANCE. Summary: Patient's care plan and aviation safety equipment technician goals have been reviewed and revised as necessary. Please see the Rehabilitation Signature page for all necessary signatures.
[2018-11-04] MEDS ORDERED: HEPARIN 500 UNIT/5 ML SYR IV ONE (12:00)
[2018-11-04] MEDS ORDERED: PNEUMOCOCCAL VACCINE 0.5 ML IMVAC ONE (12:00)
--- NOTE | 2018-11-04 14:12 | FAST ---
ENCOUNTER DATE AND TIME: 11/04/2018 08:00 (SHOP LABORER) NAME TENA ESTRADA DATE OF : 1960 DATE OF ADMISSION: 10/21/2018 22:32 (SHOP LABORER) PHONE: AGE: 57 SSN# [id number] GENDER: Male ENCOUNTER PHYSICIAN: Dr. Jesus Chandler M.D. ADMISSION DIAGNOSIS: - Debility 16 - Debility (16) SMALL BOWEL OBSTRUCTION. EATING: Activity did not occur on this shift EATING - SCORE: 0-UNK GROOMING: Activity did not occur on this shift GROOMING - SCORE: 0-UNK BATHING: Activity did not occur on this shift BATHING - SCORE: 0-UNK DRESSING - UPPER BODY: Activity did not occur on this shift Patient is not dressing in public clothing ARTICLES SCORE Total number of steps: 0 DRESSING - UPPER BODY - SCORE: 0-UNK DRESSING - LOWER BODY: Activity did not occur on this shift Patient is not dressing in public clothing ARTICLES SCORE Total number of steps: 0 DRESSING - LOWER BODY - SCORE: 0-UNK TOILETING: Activity did not occur on this shift TOILETING - SCORE: 0-UNK BLADDER MANAGEMENT: Activity did not occur on this shift BLADDER MANAGEMENT - SCORE: 7-IND BOWEL MANAGEMENT: Activity did not occur on this shift BOWEL MANAGEMENT - SCORE: 7-IND TRANSFERS: BED, CHAIR, WHEELCHAIR: TRANSFERS: BED, CHAIR, WHEELCHAIR - STEP 1: Does the patient require assistance of a person or device, or need extra time with bed, chair, or whe elchair transfers? Yes. TRANSFERS: BED, CHAIR, WHEELCHAIR - STEP 2: Does the patient require the assistance of a helper? No. Patient only requires an assistive device fo r bed, chair, wheelchair transfers such as a sliding board, grab bar, or brace, OR s/he takes more th an reasonable time, OR there is a safety concern when s/he performs the transfers TRANSFERS: BED, CHAIR, WHEELCHAIR - SCORE: 6-BRI TRANSFERS: TOILET: Activity did not occur on this shift TRANSFERS: TOILET - SCORE: 0-UNK TRANSFERS: SHOWER: Activity did not occur on this shift TRANSFERS: SHOWER - SCORE: 0-UNK TRANSFERS: TUB: Activity did not occur on this shift TRANSFERS: TUB - SCORE: 0-UNK LOCOMOTION: WALK: LOCOMOTION: WALK - STEP 1: Does the patient need help from a person or device, or need extra time to walk 150 feet? No. LOCOMOTION: WALK - STEP 2: Does the patient need an assistive device (such as an orthosis, prosthesis, crutches, or walker) to g o 150 feet, OR does s/he take more than reasonable time, OR is there a concern for safety? Yes, the p atient needs an assistive device LOCOMOTION: WALK - SCORE: 6-BRI LOCOMOTION: WHEELCHAIR: LOCOMOTION: WHEELCHAIR - STEP 1: Does the patient need help to go 150 feet in a wheelchair? No. LOCOMOTION: WHEELCHAIR - SCORE: 6-BRI LOCOMOTION: STAIRS: LOCOMOTION: STAIRS - STEP 1: Does the patient need help to go up and down 12 to 14 stairs? No. LOCOMOTION: STAIRS - STEP 2: Does the patient require an assistive device - such as handrails or cane - to go up and down one flig ht of stairs, OR does s/he take more than reasonable time, OR is there a concern for safety? Yes, the patient requires an assistive device LOCOMOTION: STAIRS - SCORE: 6-BRI COMPREHENSION: COMPREHENSION - SCORE: 0-UNK EXPRESSION EXPRESSION - SCORE: 0-UNK SOCIAL INTERACTION: SOCIAL INTERACTION - SCORE: 0-UNK PROBLEM SOLVING: PROBLEM SOLVING - SCORE: 0-UNK MEMORY: MEMORY - SCORE: 0-UNK SIGNATURE PANEL: The following modified sections: Transfers: Bed, Chair, Wheelchair - Score, Transfers: Toilet - Score , Locomotion: Walk - Score, Locomotion: Wheelchair - Score, Locomotion: Stairs - Score were [electron stacey] signed by Ez Aguirre PT on WedNov 04 2018 14:11:48 GMT-0600 (Central Standard Time)
--- NOTE | 2018-11-04 16:17 | FAST ---
ENCOUNTER DATE AND TIME: 11/04/2018 08:00 (CREDIT RISK MODELER) NAME TENA ESTRADA DATE OF : 1960 DATE OF ADMISSION: 10/21/2018 22:32 (CREDIT RISK MODELER) PHONE: AGE: 57 N# [id number] GENDER: Male ENCOUNTER PHYSICIAN: Dr. Jesus Chandler M.D. ADMISSION DIAGNOSIS: - Debility 16 - Debility (16) SMALL BOWEL OBSTRUCTION. EATING: Activity did not occur on this shift EATING - SCORE: 0-UNK GROOMING: Comb/brush hair Wash, rinse, and dry face Wash, rinse, and dry hands GROOMING - STEP 1: Does the patient require the assistance of a person or device, or need extra time when grooming? No. GROOMING - SCORE: 7-IND BATHING: Abdomen Buttocks Chest Left arm Left lower leg and foot Left upper leg Perineal area Right arm Right lower leg and foot Right upper leg BATHING - STEP 1: Does the patient require the assistance of a person or device, or need extra time when bathing? Yes. BATHING - STEP 2: Does the patient require the assistance of a helper? No. The patient only requires an assistive devic e such as a bath new, OR the patient takes more than reasonable time to bathe, OR there is a concern for safety such as regulating water temperature as the patient bathes. BATHING - SCORE: 6-BRI DRESSING - UPPER BODY: T-shirt/pullover shirt (four steps) ARTICLES SCORE Total number of steps: 4 DRESSING - UPPER BODY - STEP 1: Does the patient require help from a person or device, or need extra time when dressing above the [address]? No. DRESSING - UPPER BODY - SCORE: 7-IND DRESSING - LOWER BODY: Elastic waist pants (three steps) Sock - Left foot (one step) Sock - Right foot (one step) Tied or buckled shoe - Left foot (two steps) Tied or buckled shoe - Right foot (two steps) Underwear (three steps) ARTICLES SCORE Total number of steps: 12 DRESSING - LOWER BODY - STEP 1: Does the patient require help from a person or device, or need extra time when dressing below the [address]? Yes. DRESSING - LOWER BODY - STEP 2: Does the patient require the assistance of a helper? Yes. DRESSING - LOWER BODY - STEP 3: Does the helper touch the patient while dressing? Yes. DRESSING - LOWER BODY - STEP 4: How many of the total steps does the patient complete on his/her own? 10 DRESSING - LOWER BODY - SCORE: 4-MIN TOILETING: Activity did not occur on this shift TOILETING - SCORE: 0-UNK BLADDER MANAGEMENT: Activity did not occur on this shift BLADDER MANAGEMENT - SCORE: 7-IND BOWEL MANAGEMENT: Activity did not occur on this shift BOWEL MANAGEMENT - SCORE: 7-IND TRANSFERS: BED, CHAIR, WHEELCHAIR: Activity did not occur on this shift TRANSFERS: BED, CHAIR, WHEELCHAIR - SCORE: 0-UNK TRANSFERS: TOILET: Activity did not occur on this shift TRANSFERS: TOILET - SCORE: 0-UNK TRANSFERS: SHOWER: TRANSFERS: SHOWER - STEP 1: Does the patient require the assistance of a person or device, or need extra time with shower transfe rs? Yes. TRANSFERS: SHOWER - STEP 2: Does the patient require the assistance of a helper? No. The patient only uses an assistive device, t akes more than reasonable time, OR there is a concern for safety when s/he performs transfers. TRANSFERS: SHOWER - SCORE: 6-BRI TRANSFERS: TUB: Activity did not occur on this shift TRANSFERS: TUB - SCORE: 0-UNK LOCOMOTION: WALK: Activity did not occur on this shift LOCOMOTION: WALK - SCORE: 0-UNK LOCOMOTION: WHEELCHAIR: Activity did not occur on this shift LOCOMOTION: WHEELCHAIR - SCORE: 0-UNK LOCOMOTION: STAIRS: Activity did not occur on this shift LOCOMOTION: STAIRS - SCORE: 0-UNK COMPREHENSION: COMPREHENSION: TYPE: Visual COMPREHENSION - STEP 1: Does the patient require help from a person or device, or need extra time to understand complex and a bstract ideas (such as current events, finances, discharge planning, medical issues, relationships, e tc)? No. COMPREHENSION - STEP 2: Does the patient need extra time, require an assistive device (such as glasses for visual comprehensi on or a hearing aid for auditory comprehension) or does s/he have mild difficulty understanding compl ex and abstract information? No. COMPREHENSION - SCORE: 7-IND EXPRESSION EXPRESSION: TYPE: Non-Vocal EXPRESSION - STEP 1: Does the patient require help from a person or device, or need extra time expressing complex and abst ract ideas (such as current events, finances, discharge planning, medical issues, relationships, etc) ? No. EXPRESSION - STEP 2: Does the patient need extra time, require an assistive device (such as augmentive communication syste m or a communication board), OR does s/he have mild difficulty expressing complex and abstract ideas (including mild dysarthria or mild word-find problems)? No. EXPRESSION - SCORE: 7-IND SOCIAL INTERACTION: SOCIAL INTERACTION - STEP 1: Does the patient require a helper to interact with others in social and therapeutic situations? No. SOCIAL INTERACTION - STEP 2: Does the patient need extra time in social situations, OR does s/he interact with staff, other patien ts, and family members ONLY in structured environments, OR does s/he require medication for social in teraction? No. SOCIAL INTERACTION - SCORE: 7-IND PROBLEM SOLVING: PROBLEM SOLVING - STEP 1: Does the patient need help from a person or device, or need extra time to solve complex problems such as managing a checking account or confronting interpersonal problems? No. PROBLEM SOLVING - STEP 2: Does the patient require extra time to make decisions or solve problems, OR does s/he have slight dif ficulty reading, initiating, or self-correcting in unfamiliar situations? No. PROBLEM SOLVING - SCORE: 7-IND MEMORY: MEMORY - STEP 1: Does the patient need help from a person or device, or need extra time to remember frequently encount ered people, daily routines, and executing requests? No. MEMORY - STEP 2: Does the patient have slight difficulty recognizing frequently encountered people, daily routines, or executing requests without the need for repetition or using self-initiated or environmental cues to remember? No. MEMORY - SCORE: 7-IND SIGNATURE PANEL: The following modified sections: Eating - Score, Grooming - Score, Bathing - Score, Dressing - Upper Body - Score, Dressing - Lower Body - Score, Toileting - Score, Transfers: Bed, Chair, Wheelchair - S core, Transfers: Toilet - Score, Transfers: Shower - Score, Transfers: Tub - Score, Comprehension - S core, Expression - Score, Social Interaction - Score, Problem Solving - Score, Memory - Score were [e lectronically] signed by JING Polk on WedNov 04 2018 16:17:12 T-0600 ([facility] Time)
--- NOTE | 2018-11-04 17:02 | FAST ---
ENCOUNTER DATE AND TIME: 11/02/2018 08:00 (AERIAL ERECTOR) NAME TENA ESTRADA DATE OF : 1960 DATE OF ADMISSION: 10/21/2018 22:32 (AERIAL ERECTOR) PHONE: AGE: 57 N# [id number] GENDER: Male ENCOUNTER PHYSICIAN: Dr. Jesus Chandler M.D. ADMISSION DIAGNOSIS: - Debility 16 - Debility (16) SMALL BOWEL OBSTRUCTION. EATING: EATING - STEP 1: Does the patient require the assistance of a person or device, or need extra time when eating? No. EATING - SCORE: 7-IND GROOMING: GROOMING - STEP 1: Does the patient require the assistance of a person or device, or need extra time when grooming? No. GROOMING - SCORE: 7-IND BATHING: Abdomen Buttocks Chest Left arm Left lower leg and foot Left upper leg Perineal area Right arm Right lower leg and foot Right upper leg BATHING - STEP 1: Does the patient require the assistance of a person or device, or need extra time when bathing? Yes. BATHING - STEP 2: Does the patient require the assistance of a helper? No. The patient only requires an assistive devic e such as a bath new, OR the patient takes more than reasonable time to bathe, OR there is a concern for safety such as regulating water temperature as the patient bathes. BATHING - SCORE: 6-BRI DRESSING - UPPER BODY: T-shirt/pullover shirt (four steps) ARTICLES SCORE Total number of steps: 4 DRESSING - UPPER BODY - STEP 1: Does the patient require help from a person or device, or need extra time when dressing above the mon[address]? No. DRESSING - UPPER BODY - SCORE: 7-IND DRESSING - LOWER BODY: Elastic waist pants (three steps) Sock - Left foot (one step) Sock - Right foot (one step) Tied or buckled shoe - Left foot (two steps) Tied or buckled shoe - Right foot (two steps) Underwear (three steps) ARTICLES SCORE Total number of steps: 12 DRESSING - LOWER BODY - STEP 1: Does the patient require help from a person or device, or need extra time when dressing below the mon[address]? Yes. DRESSING - LOWER BODY - STEP 2: Does the patient require the assistance of a helper? Yes. DRESSING - LOWER BODY - STEP 3: Does the helper touch the patient while dressing? Yes. DRESSING - LOWER BODY - STEP 4: How many of the total steps does the patient complete on his/her own? 10 DRESSING - LOWER BODY - SCORE: 4-MIN TOILETING: TOILETING - STEP 1: Does the patient require the assistance of a person or device, or need extra time with toileting? Yes . TOILETING - STEP 2: Does the patient require the assistance of a helper? No. TOILETING - SCORE: 6-BRI BLADDER MANAGEMENT: Activity did not occur on this shift BLADDER MANAGEMENT - SCORE: 7-IND BOWEL MANAGEMENT: Activity did not occur on this shift BOWEL MANAGEMENT - SCORE: 7-IND TRANSFERS: BED, CHAIR, WHEELCHAIR: Activity did not occur on this shift TRANSFERS: BED, CHAIR, WHEELCHAIR - SCORE: 0-UNK TRANSFERS: TOILET: TRANSFERS: TOILET - STEP 1: Does the patient require the assistance of a person or device, or need extra time with toilet transfe rs? Yes. TRANSFERS: TOILET - STEP 2: Does the patient require the assistance of a helper? No. Patient only requires an assistive device phelps ch as a grab bar or special seat, OR s/he takes more than reasonable time to perform toilet transfers , OR there is a safety concern when s/he performs toilet transfers. TRANSFERS: TOILET - SCORE: 6-BRI TRANSFERS: SHOWER: TRANSFERS: SHOWER - STEP 1: Does the patient require the assistance of a person or device, or need extra time with shower transfe rs? Yes. TRANSFERS: SHOWER - STEP 2: Does the patient require the assistance of a helper? No. The patient only uses an assistive device, t akes more than reasonable time, OR there is a concern for safety when s/he performs transfers. TRANSFERS: SHOWER - SCORE: 6-BRI TRANSFERS: TUB: Activity did not occur on this shift TRANSFERS: TUB - SCORE: 0-UNK LOCOMOTION: WALK: Activity did not occur on this shift LOCOMOTION: WALK - SCORE: 0-UNK LOCOMOTION: WHEELCHAIR: Activity did not occur on this shift LOCOMOTION: WHEELCHAIR - SCORE: 0-UNK LOCOMOTION: STAIRS: Activity did not occur on this shift LOCOMOTION: STAIRS - SCORE: 0-UNK COMPREHENSION: COMPREHENSION: TYPE: Both COMPREHENSION - STEP 1: Does the patient require help from a person or device, or need extra time to understand complex and a bstract ideas (such as current events, finances, discharge planning, medical issues, relationships, e tc)? No. COMPREHENSION - STEP 2: Does the patient need extra time, require an assistive device (such as glasses for visual comprehensi on or a hearing aid for auditory comprehension) or does s/he have mild difficulty understanding compl ex and abstract information? No. COMPREHENSION - SCORE: 7-IND EXPRESSION EXPRESSION: TYPE: Both EXPRESSION - STEP 1: Does the patient require help from a person or device, or need extra time expressing complex and abst ract ideas (such as current events, finances, discharge planning, medical issues, relationships, etc) ? No. EXPRESSION - STEP 2: Does the patient need extra time, require an assistive device (such as augmentive communication syste m or a communication board), OR does s/he have mild difficulty expressing complex and abstract ideas (including mild dysarthria or mild word-find problems)? No. EXPRESSION - SCORE: 7-IND SOCIAL INTERACTION: SOCIAL INTERACTION - STEP 1: Does the patient require a helper to interact with others in social and therapeutic situations? No. SOCIAL INTERACTION - STEP 2: Does the patient need extra time in social situations, OR does s/he interact with staff, other patien ts, and family members ONLY in structured environments, OR does s/he require medication for social in teraction? Yes, patient requires medication for social interaction SOCIAL INTERACTION - SCORE: 6-BRI PROBLEM SOLVING: PROBLEM SOLVING - STEP 1: Does the patient need help from a person or device, or need extra time to solve complex problems such as managing a checking account or confronting interpersonal problems? No. PROBLEM SOLVING - STEP 2: Does the patient require extra time to make decisions or solve problems, OR does s/he have slight dif ficulty reading, initiating, or self-correcting in unfamiliar situations? No. PROBLEM SOLVING - SCORE: 7-IND MEMORY: MEMORY - STEP 1: Does the patient need help from a person or device, or need extra time to remember frequently encount ered people, daily routines, and executing requests? No. MEMORY - STEP 2: Does the patient have slight difficulty recognizing frequently encountered people, daily routines, or executing requests without the need for repetition or using self-initiated or environmental cues to remember? No. MEMORY - SCORE: 7-IND SIGNATURE PANEL: The following modified sections: Eating - Score, Grooming - Score, Bathing - Score, Dressing - Upper Body - Score, Dressing - Lower Body - Score, Toileting - Score, Transfers: Bed, Chair, Wheelchair - S core, Transfers: Toilet - Score, Transfers: Shower - Score, Transfers: Tub - Score, Comprehension - S core, Expression - Score, Social Interaction - Score, Problem Solving - Score, Memory - Score were [e lectronically] signed by Vivian Small OT on WedNov 04 2018 17:01:55 GMT-0600 (Central Standard [facility])
--- NOTE | 2018-11-06 06:23 | DS ---
Date of Discharge: 11/04/2018 Disposition: Discharged to go home. Physical Examination: HEENT: Unremarkable. Lungs: Clear to auscultation. Heart: Sounds normal. Abdomen: Soft. Bowel sounds normal. No guarding, rigidity, tenderness, or distention. Extremities: Trace leg edema. Discharge Medications And Instructions: 1.Continue prior home medications. 2.Take Bactrim DS 1 tablet 2 times a day with food for 10 days for urinary tract infection. 3.Follow with surgeon in [place] next week, follow up at my office in November 2018. Laboratory Data: Labs and investigation done during this hospitalization, white count upon admission was 14.9, hemoglobin 10.7, platelets 340. Last white count on 11/03/2018 was 9.4, hemoglobin 11.2, platelets 178. Last chemistry on 11/03, sodium 140, potassium 3.5, chloride 103, bicarb 32, BUN 16, creatinine 0.9, glucose 117. Urine culture grew Klebsiella. Hospital Course: A 57-year-old male patient who was admitted to rehab floor for generalized weakness and debility after he had surgery done in [place] for small bowel obstruction. Please see dictated H and P for more information. After he was brought into our rehab floor, Dr. Chandler from rehab was consulted. He provided physical therapy under his guidance and medically all his medications were c ontinued. Overall, he was stable. He was not on his usual diuretic medication when he came in and w e initially started spironolactone and then added chlorthalidone. Overall, his condition was stable with diuretic medication, his fluid retention problem improved. Pain medications were continued per order, and he also required nausea medicine initially. He had ileus that improved, tolerated diet ve ry well, started having bowel movement and diet was advanced and he did not have any more vomiting, b ut just has nausea from [id number], requiring nausea medications. He did have some dysuria, suprap ubic discomfort, and pyuria. Urinalysis was abnormal. Urine culture grew Klebsiella. He was given empiric antibiotic IV ceftriaxone and subsequently was discharged to go home on Bactrim. Klebsiella is sensitive to all the antibiotic that was tested for. He still has donavon and his surgeon does no t want us to remove donavon down here and he will remove donavon at the time of office visit [place] Final Diagnoses: 1.Debility. 2.Generalized weakness. 3.Paroxysmal atrial fibrillation. 4.Urinary tract infection. 5.Urethral stricture. 6.Hypertension. 7.Chronic steroid therapy. 8.Chronic anticoagulation therapy. 9.Sleep apnea. 10.Crohn disease. JORDAN/MODL Voice ID: [id number] Report ID: [id number]
== END 2018-11-04 12:20 | disposition home health service (06) | DRG 948 ==
LOC: 5TH 10-21 22:32
PROVIDERS: ADMIT Internal Medicine; ATTEND Internal Medicine
DX: R53.81 Other malaise (principal); N30.00 Acute cystitis without hematuria; K50.90 Crohn's disease, unspecified, without complications; K56.7 Ileus, unspecified; Z68.43 Body mass index [BMI] 50.0-59.9, adult; E66.01 Morbid (severe) obesity due to excess calories; G47.33 Obstructive sleep apnea (adult) (pediatric); K21.9 Gastro-esophageal reflux disease without esophagitis; I48.91 Unspecified atrial fibrillation; I10 Essential (primary) hypertension; M06.9 Rheumatoid arthritis, unspecified; R53.1 Weakness; I48.0 Paroxysmal atrial fibrillation; Z79.52 Long term (current) use of systemic steroids; N35.919 Unspecified urethral stricture, male, unspecified site; K43.9 Ventral hernia without obstruction or gangrene; R60.0 Localized edema; G47.30 Sleep apnea, unspecified
CPT/HCPCS: 36415; 71046; 74019; 80048; 80053; 81001; 81003; 81015; 82040; 82962; 83036; 83735; 84134; 85025; 87077; 87086; 87088; 87186; 97110; 97112; 97116; 97530; 97542; J0696; J1642; J1940; J2550; J2920; J7512

== ENCOUNTER 2019-03-11 19:04 | Emergency (ER) | payer OTHER ==
--- OUTSIDE RECORDS SUMMARY | 2019-03-11 19:08 | XMS REPORT | Clinical Summary ---
:1960 Author Organization [facility] Address [address] [place] [address] Care Team Providers Name Role Phone Asked, [...] 1 capsule 0 Active by mouth daily. cyanocobalamin, Inject 1,000 0 Active vitamin B-12, 1,000 mcg as directed mcg/mL kit every 30 (thirty) days. anakinra (KINERET) 100 Inject 100 mg 0 Active mg/0.67 mL syringe under the skin daily. methotrexate, PF, 20 Inject 20 mg 0 Active mg/0.4 mL under the skin auto-injector every 7 days. rivaroxaban (XARELTO) Take 20 mg by 0 Active 20 mg tablet mouth daily. sotalol (BETAPACE) 120 Take 120 mg by 0 Active MG tablet mouth 2 (two) times a day. chlorthalidone Take 25 mg by 0 Active (HYGROTEN) 25 MG mouth daily. tablet spironolactone Take 50 mg by 0 Active (ALDACTONE) 50 MG mouth 2 (two) tablet times a day. acetaZOLAMIDE (DIAMOX) Take 250 mg by 0 Active 250 MG tablet mouth daily. DULoxetine (CYMBALTA) Take 120 mg by 0 Active 60 MG capsule mouth daily. pantoprazole Take 40 mg by 0 Active (PROTONIX) 40 MG EC mouth daily. tablet sucralfate (CARAFATE) Take 1 tablet 90 tablet 11 Active 1 gram tablet (1 g total) by 9 020 mouth 3 (three) times a day before meals. predniSONE (DELTASONE) Take 4 tablets 120 tablet 2 Active 5 mg tablet (20 mg total) 9 019 by mouth daily for 90 days. predniSONE (DELTASONE) Take 5 mg by 0 [...] 0 Discontinued tablet mouth every 018 morning. ferrous sulfate (IRON) Take 325 mg by 0 Discontinued 325 (65 FE) MG tablet mouth daily. 019 ascorbic acid, vitamin Take 500 mg by [...] 250 MG tablet mouth every 018 morning. ANAKINRA (KINERET Inject 100 mg 0 Discontinued SUBQ) under the skin 018 daily. omeprazole (PriLOSEC) TAKE 1 CAPSULE 90 capsule 2 Discontinued 20 MG capsule (20 MG TOTAL) 7 019 BY MOUTH DAILY FOR 180 DAYS. ARIPiprazole (ABILIFY) Take 5 mg by 0 [...] 018 per tablet (four) times a day. sotalol (BETAPACE) 120 Take 1 tablet 60 tablet 0 MG tablet (120 mg total) 8 018 by mouth 2 (two) times a day for 30 days. rivaroxaban (XARELTO) Take 1 tablet 30 tablet 0 20 mg tablet (20 mg total) 8 018 by mouth daily for 30 days. methylPREDNISolone Infuse 0.6 mL 18 mL 0 sodium succinate (25 mg total) 8 018 (Solu-MEDROL) 40 mg/mL into a venous recon soln catheter daily for 30 days. insulin lispro Inject 0-12 10 mL (HumaLOG) 100 unit/mL Units under the 8 018 injection skin every 4 (four) hours for 30 days. soybean oil/MCT/olive Infuse 250 mL 2000 mL 0 oil/fish oil fat, SMOF into a venous 8 019 Lipid, (SMOFlipid) 20 catheter 2 % emulsion infusion (two) times a week for 30 days. sennosides-docusate Take 1 tablet 60 tablet 0 sodium (SENOKOT-S) by mouth 2 8 018 8.6-50 mg per tablet (two) times a day for 30 days. HYDROcodone-acetaminop Take 1 tablet 0 hen (NORCO) 10-325 mg by mouth every 8 018 per tablet 6 (six) hours as needed for moderate pain for up to 15 days. Max Daily Amount: 4 tablets ondansetron ODT Take 1 tablet 0 (ZOFRAN-ODT) 4 MG (4 mg total) by 8 018 disintegrating tablet mouth every 6 (six) hours as needed for nausea or vomiting for up to 30 days. sodium chloride 0.9% Infuse 12.5 mg 1 mL 0 solution 10 mL with into a venous 8 018 promethazine 25 mg/mL catheter every solution 12.5 mg 6 (six) hours injection as needed for nausea or vomiting for up to 30 days. promethazine Take 1 tablet 0 (PHENERGAN) 12.5 MG (12.5 mg total) 8 018 tablet by mouth every 6 (six) hours as needed for nausea or vomiting for up to 30 days. promethazine Insert 1 0 (PHENERGAN) 12.5 MG suppository 8 018 suppository (12.5 mg total) into the rectum every 6 (six) hours as needed for nausea or vomiting for up to 30 days. DULoxetine (CYMBALTA) Take 1 capsule 30 capsule 0 30 MG capsule (30 mg total) 8 018 by mouth daily for 30 days. Increase by 30mg daily to home dose of 120mg daily predniSONE (DELTASONE) Take 20 mg by 0 Discontinued 5 mg tablet mouth daily. 019 Active Problems Problem Noted Date PAF (paroxysmal atrial fibrillation) 02/13/2019 Bowel perforation 10/05/2018 Obstructive sleep apnea 03/10/2018 [...] Encounters Date Type Specialty Care Team Description 02/13/2019 Surgery Procedural Seth Saldaña EP COMPLETE EP Cardiology MD Onofre STUDY W ABLATION PULMONARY VEIN [72534 (CPT)] 02/13/2019 Anesthesia Event Procedural Peace Jones Cardiology MD Al 02/13/2019 - Hospital Encounter Cardiology Seth Saldaña PAF (paroxysmal 02/14/2019 MD Onofre atrial fibrillation) ([facility]) 10/05/2018 Anesthesia Event General Surgery Giuliano Herrera MD 10/05/2018 Surgery General Surgery Yo Khan R., MD EXPLORATORY, SEGMENTAL RESECTION OF SMALL BOWEL X4 WITH LYSIS OF ADHESION 10/05/2018 - Hospital Encounter General Surgery Anthoyn Lyn Bowel perforation 10/21/2018 MD Antoine ([facility]) Yo Khan MD 10/05/2018 Intake Access N/A 09/29/2018 Hospital Encounter Radiology 09/29/2018 Hospital Encounter Radiology 09/29/2018 Hospital Encounter Radiology 09/29/2018 Hospital Encounter Radiology 08/09/2018 Refill General Surgery Jackelin Nguyễn PA after 03/10/2018 Family History Medical History Relation Name Comments [...] Vital Sign Reading Time Taken Blood Pressure 102/60 02/14/2019 8:00 AM CDT Pulse 89 02/14/2019 8:00 AM CDT Temperature 36.3 C (97.3 F) 02/14/2019 7:00 AM CDT Respiratory Rate 18 02/14/2019 7:00 AM CDT Oxygen Saturation 94% 02/14/2019 8:00 AM CDT Inhaled Oxygen Concentration - - Weight 177 kg (390 lb 12.8 oz) 02/14/2019 4:00 AM CDT Height 188 cm (6' 2") 02/13/2019 6:00 AM CDT Body Mass Index 50.18 02/14/2019 4:00 AM CDT Plan of Treatment Health Maintenance Due Date Last Done Comments SHINGLES VACCINES (#1) 2011 INFLUENZA VACCINE 06/22/2019 COLON CANCER SCREENING 03/05/2026 03/05/2016 Procedures Procedure Name Priority Date/Time Associated Comments Diagnosis PROTHROMBIN TIME WITH Routine 02/14/2019 4:18 Results for this INR AM CDT procedure are in the results section. ECG 12-LEAD Routine 02/14/2019 4:17 Results for this AM CDT procedure are in the results section. HC COMPLETE BLD COUNT Routine 02/14/2019 4:15 Results for this W/AUTO DIFF AM CDT procedure are in the results section. ESTIMATED GFR Routine 02/14/2019 4:00 Results for this AM CDT procedure are in the results section. BASIC METABOLIC PANEL Routine 02/14/2019 4:00 Results for this AM CDT procedure are in the results section. ESTIMATED GFR Routine 02/13/2019 3:59 Results for this PM CDT procedure are in the results section. MAGNESIUM LEVEL Routine 02/13/2019 3:59 Results for this PM CDT procedure are in the results section. BASIC METABOLIC PANEL Routine 02/13/2019 3:59 Results for this PM CDT procedure are in the results section. ECG 12-LEAD STAT 02/13/2019 1:06 Results for this PM CDT procedure are in the results section. EP COMPLETE EP STUDY Routine 02/13/2019 12:44 PAF (paroxysmal Results for this W ABLATION PULMONARY PM CDT atrial procedure are in VEIN fibrillation) (HCC) the results section. ACTIVATED CLOTTING Routine 02/13/2019 12:32 Results for this TIME PM CDT procedure are in the results section. ACTIVATED CLOTTING Routine 02/13/2019 12:16 Results for this TIME PM CDT procedure are in the results section. ACTIVATED CLOTTING Routine 02/13/2019 11:22 Results for this TIME AM CDT procedure are in the results section. ACTIVATED CLOTTING Routine 02/13/2019 10:35 Results for this TIME AM CDT procedure are in the results section. ACTIVATED CLOTTING Routine 02/13/2019 10:02 Results for this TIME AM CDT procedure are in the results section. ACTIVATED CLOTTING Routine 02/13/2019 9:53 Results for this TIME AM CDT procedure are in the results section. ACTIVATED CLOTTING Routine 02/13/2019 9:33 Results for this TIME AM CDT procedure are in the results section. ARTERIAL LINE Routine 02/13/2019 9:13 AM CDT Procedure Note - Peace Jones MD - 02/13/2019 9:13 AM CDT Arterial line Performed by: Peace Jones MD Authorized by: Peace Jones MD Patient Location: OR Start Time: 02/13/2019 9:13 AM End Time: 02/13/2019 9:13 AM Staff: Anesthesiologist: Peace Jones MD Resident/WEBBING SUPERVISOR/AA: Cora Austin CRNA Performed by: Anesthesiologist Pre-procedure: patient identified, IV checked, site and side verified, risks and benefits discussed, procedure verified, surgical consent complete, patient position confirmed, monitors and equipment checked and pre-op evaluation complete MSBT: antiseptic used, all elements of maximal sterile barrier technique followed, hand hygiene performed, cap/gown used by other personnel and solutions labeled TIme Out Performed: 02/13/2019 9:13 AM Indications: Indications: hemodynamic monitoring Anesthesia: Anesthesia: General Procedure Details: Arterial Line placement: Placed post induction Line placement site: Radial Line placement side: Left Arterial line gauge: 20 G Number of attempts: 1 Ultrasound guidance used: Yes Post-procedure: Post-procedure: Sterile dressing applied Post procedure circulation, sensation, movement: Normal and unchanged Patient tolerance: Patient tolerated the procedure well with no immediate complications OH AN ELECTIVE ENDOTRACHEAL AIRWAY Routine 02/13/2019 9:12 AM CDT Procedure Note - Peace Jones MD - 02/13/2019 9:12 AM CDT Airway Date/Time: 02/13/2019 9:12 AM Performed by: Peace Jones MD Authorized by: Peace Jones MD Location: OR Urgency: Elective Difficult Airway: No Preoxygenated with 100% O2: Yes C-spine Precautions Maintained Throughout: Yes Mask Ventilation: Easy mask Final Airway Type: [...] No Number of Attempts at Approach: 1 ECG PRE/POST OP Routine 02/13/2019 6:53 AM CDT TYPE AND SCREEN STAT 02/13/2019 6:15 AM CDT POC GLUCOSE Routine 10/21/2018 7:43 PM CAR MECHANIC HELPER POC GLUCOSE Routine 10/21/2018 5:16 PM CAR MECHANIC HELPER POC GLUCOSE Routine 10/21/2018 11:53 AM CAR MECHANIC HELPER POC GLUCOSE Routine 10/21/2018 8:01 AM CAR MECHANIC HELPER POC GLUCOSE Routine 10/21/2018 4:52 AM CAR MECHANIC HELPER POC GLUCOSE Routine 10/20/2018 11:01 PM CAR MECHANIC HELPER POC GLUCOSE Routine 10/20/2018 7:23 PM CAR MECHANIC HELPER POC GLUCOSE Routine 10/20/2018 3:48 PM CAR MECHANIC HELPER POC GLUCOSE Routine 10/20/2018 12:06 PM CAR MECHANIC HELPER POC GLUCOSE Routine 10/20/2018 7:17 AM CAR MECHANIC HELPER POC GLUCOSE Routine 10/20/2018 3:39 AM CAR MECHANIC HELPER ESTIMATED GFR Routine 10/20/2018 12:37 AM CAR MECHANIC HELPER PHOSPHORUS LEVEL Routine 10/20/2018 12:37 AM CAR MECHANIC HELPER MAGNESIUM LEVEL Routine 10/20/2018 12:37 AM CAR MECH[employer]IC HELPER BASIC METABOLIC PANEL Routine 10/20/2018 12:37 AM CAR MECHANIC HELPER POC GLUCOSE Routine 10/20/2018 12:00 AM CAR MECHANIC HELPER POC GLUCOSE Routine 10/19/2018 8:51 PM CAR MECHANIC HELPER POC GLUCOSE Routine 10/19/2018 4:27 PM CAR MECHANIC HELPER POC GLUCOSE Routine 10/19/2018 12:29 PM CAR MECHANIC HELPER POC GLUCOSE Routine 10/19/2018 9:02 AM CAR MECHANIC HELPER POC GLUCOSE Routine 10/19/2018 4:07 AM CAR MECHANIC HELPER POC GLUCOSE Routine 10/19/2018 12:22 AM CAR MECHANIC HELPER POC GLUCOSE Routine 10/18/2018 8:09 PM CAR MECHANIC HELPER POC GLUCOSE Routine 10/18/2018 4:13 PM CAR MECH[employer]IC HELPER POC GLUCOSE Routine 10/18/2018 1:06 PM CAR MECH[employer]IC HELPER XR ABDOMEN 2 VW AP W UPRIGHT Routine 10/18/2018 10:00 AM CAR [employer]IC HELPER Results for this AND/OR DECUBITUS procedure are in the results section. POC GLUCOSE Routine 10/18/2018 9:51 AM CAR MECH[employer]IC HELPER POC GLUCOSE Routine 10/18/2018 7:48 AM CAR MECH[employer]IC HELPER POC GLUCOSE Routine 10/18/2018 4:46 AM CAR MECH[employer]IC HELPER ESTIMATED GFR Routine 10/18/2018 4:00 AM CAR MECH[employer]IC HELPER PHOSPHORUS LEVEL Routine 10/18/2018 4:00 AM CAR MECH[employer]IC HELPER MAGNESIUM LEVEL Routine 10/18/2018 4:00 AM CAR ME[employer]IC HELPER TRIGLYCERIDES Routine 10/18/2018 4:00 AM CAR MECH[employer]IC HELPER BASIC METABOLIC PANEL Routine 10/18/2018 4:00 AM CAR MECH[employer]IC HELPER POC GLUCOSE Routine 10/17/2018 11:43 PM CAR MECH[employer]IC HELPER POC GLUCOSE Routine 10/17/2018 8:04 PM CAR MECHANIC HELPER POC GLUCOSE Routine 10/17/2018 5:08 PM CAR MECH[employer]IC HELPER POC GLUCOSE Routine 10/17/2018 12:11 PM CAR MECH[employer]IC HELPER PHOSPHORUS LEVEL Routine 10/17/2018 9:00 AM CAR MECH[employer]IC HELPER MAGNESIUM LEVEL Routine 10/17/2018 9:00 AM CAR MECH[employer]IC HELPER ESTIMATED GFR Routine 10/17/2018 9:00 AM CAR MECH[employer]IC HELPER BASIC METABOLIC PANEL Routine 10/17/2018 9:00 AM CAR MECH[employer]IC HELPER POC GLUCOSE Routine 10/17/2018 8:32 AM CAR MECHANIC HELPER POC GLUCOSE Routine 10/17/2018 3:17 AM CAR MECH[employer]IC HELPER POC GLUCOSE Routine 10/16/2018 11:52 PM CAR MECHANIC HELPER POC GLUCOSE Routine 10/16/2018 8:14 PM CAR MECH[employer]IC HELPER POC GLUCOSE Routine 10/16/2018 4:16 PM CAR MECH[employer]IC HELPER POC GLUCOSE Routine 10/16/2018 11:49 AM CAR MECHANIC HELPER POC GLUCOSE Routine 10/16/2018 8:09 AM CAR MECHANIC HELPER POC GLUCOSE Routine 10/16/2018 3:16 AM CAR MECH[employer]IC HELPER POC GLUCOSE Routine 10/16/2018 12:21 AM CAR MECHANIC HELPER POC GLUCOSE Routine 10/15/2018 7:59 PM CAR MECH[employer]IC HELPER POC GLUCOSE Routine 10/15/2018 5:40 PM CAR MECH[employer]IC HELPER POC GLUCOSE Routine 10/15/2018 2:34 PM CAR MECH[employer]IC HELPER POC GLUCOSE Routine 10/15/2018 1:12 PM CAR MECH[employer]IC HELPER POC GLUCOSE Routine 10/15/2018 8:06 AM CAR MECH[employer]IC HELPER BASIC METABOLIC PANEL Routine 10/15/2018 4:00 AM CAR MECH[employer]IC HELPER ESTIMATED GFR Routine 10/15/2018 4:00 AM CAR MECHANIC HELPER MAGNESIUM LEVEL Routine 10/15/2018 4:00 AM CAR MECHANIC HELPER POC GLUCOSE Routine 10/15/2018 3:00 AM CAR MECHANIC HELPER POC GLUCOSE Routine 10/15/2018 12:43 AM CAR MECHANIC HELPER POC GLUCOSE Routine 10/14/2018 7:58 PM CAR MECHANIC HELPER POC GLUCOSE Routine 10/14/2018 5:02 PM CAR MECHANIC HELPER POC GLUCOSE Routine 10/14/2018 12:47 PM CAR MECHANIC HELPER ESTIMATED GFR Routine 10/14/2018 7:45 AM CAR MECHANIC HELPER BASIC METABOLIC PANEL Routine 10/14/2018 7:45 AM CAR MECHANIC HELPER POC GLUCOSE Routine 10/14/2018 7:43 AM CAR MECHANIC HELPER POC GLUCOSE Routine 10/14/2018 5:02 AM CAR MECH[employer]IC HELPER POC GLUCOSE Routine 10/14/2018 12:20 AM CAR MECHANIC HELPER POC GLUCOSE Routine 10/13/2018 9:11 PM CAR MECH[employer]IC HELPER POC GLUCOSE Routine 10/13/2018 4:25 PM CAR MECHANIC HELPER POC GLUCOSE Routine 10/13/2018 12:20 PM CAR MECHANIC HELPER POC GLUCOSE Routine 10/13/2018 8:17 AM CAR MECHANIC HELPER ESTIMATED GFR Routine 10/13/2018 6:19 AM CAR MECH[employer]IC HELPER BASIC METABOLIC PANEL Routine 10/13/2018 6:19 AM CAR MECH[employer]IC HELPER POC GLUCOSE Routine 10/13/2018 4:24 AM CAR MECHANIC HELPER POC GLUCOSE Routine 10/12/2018 11:25 PM CAR MECHANIC HELPER POC GLUCOSE Routine 10/12/2018 8:09 PM CAR MECHANIC HELPER POC GLUCOSE Routine 10/12/2018 3:55 PM CAR MECHANIC HELPER POC GLUCOSE Routine 10/12/2018 11:37 AM CAR MECHANIC HELPER POC GLUCOSE Routine 10/12/2018 7:19 AM CAR MECHANIC HELPER POC GLUCOSE Routine 10/12/2018 4:59 AM CAR MECHANIC HELPER ESTIMATED GFR Routine 10/12/2018 3:58 AM CAR MECHANIC HELPER PHOSPHORUS LEVEL Routine 10/12/2018 3:58 AM CAR MECHANIC HELPER MAGNESIUM LEVEL Routine 10/12/2018 3:58 AM CAR MECHANIC HELPER BASIC METABOLIC PANEL Routine 10/12/2018 3:58 AM CAR MECH[employer]IC HELPER POC GLUCOSE Routine 10/11/2018 11:17 PM CAR MECHANIC HELPER POC GLUCOSE Routine 10/11/2018 7:28 PM CAR MECHANIC HELPER POC GLUCOSE Routine 10/11/2018 3:14 PM CAR MECHANIC HELPER POC GLUCOSE Routine 10/11/2018 11:39 AM CAR MECHANIC HELPER ESTIMATED GFR Routine 10/11/2018 8:51 AM CAR MECHANIC HELPER PHOSPHORUS LEVEL Routine 10/11/2018 8:51 AM CAR MECHANIC HELPER MAGNESIUM LEVEL Routine 10/11/2018 8:51 AM CAR MECHANIC HELPER BASIC METABOLIC PANEL Routine 10/11/2018 8:51 AM CAR MECHANIC HELPER POC GLUCOSE Routine 10/11/2018 7:28 AM CAR MECHANIC HELPER POC GLUCOSE Routine 10/11/2018 4:21 AM CAR MECHANIC HELPER POC GLUCOSE Routine 10/10/2018 11:07 PM CAR MECHANIC HELPER POC GLUCOSE Routine 10/10/2018 7:41 PM CAR MECH[employer]IC HELPER POC GLUCOSE Routine 10/10/2018 6:02 PM CAR MECHANIC HELPER POC GLUCOSE Routine 10/10/2018 1:03 PM CAR MECH[employer]IC HELPER POC GLUCOSE Routine 10/10/2018 8:13 AM CAR MECHANIC HELPER POC GLUCOSE Routine 10/10/2018 5:24 AM CAR MECHANIC HELPER MAGNESIUM LEVEL Routine 10/10/2018 3:45 AM CAR MECHANIC HELPER PHOSPHORUS LEVEL Routine 10/10/2018 3:45 AM CAR MECH[employer]IC HELPER ESTIMATED GFR Routine 10/10/2018 3:45 AM CAR MECH[employer]IC HELPER BASIC METABOLIC PANEL Routine 10/10/2018 3:45 AM CAR MECH[employer]IC HELPER HC COMPLETE BLD COUNT W/AUTO Routine 10/10/2018 3:45 AM CAR MECH[employer]IC HELPER Results for this DIFF procedure are in the results section. POC GLUCOSE Routine 10/09/2018 11:34 PM CAR MECHANIC HELPER POC GLUCOSE Routine 10/09/2018 7:58 PM CAR MECH[employer]IC HELPER POC GLUCOSE Routine 10/09/2018 4:25 PM CAR MECH[employer]IC HELPER POC GLUCOSE Routine 10/09/2018 11:53 AM CAR MECH[employer]IC HELPER ECG 12-LEAD Routine 10/09/2018 8:17 AM CAR MECH[employer]IC HELPER HC COMPLETE BLD COUNT W/AUTO Routine 10/09/2018 7:58 AM CAR ME[employer]IC HELPER Results for this DIFF procedure are in the results section. POC GLUCOSE Routine 10/09/2018 7:40 AM CAR MECH[employer]IC HELPER POC GLUCOSE Routine 10/09/2018 5:10 AM CAR MECH[employer]IC HELPER ESTIMATED GFR Routine 10/09/2018 3:46 AM CAR MECHANIC HELPER BASIC METABOLIC PANEL Routine 10/09/2018 3:46 AM CAR MECHANIC HELPER MAGNESIUM LEVEL Routine 10/09/2018 3:46 AM CAR MECH[employer]IC HELPER PHOSPHORUS LEVEL Routine 10/09/2018 3:46 AM CAR MECH[employer]IC HELPER POC GLUCOSE Routine 10/08/2018 11:31 PM CAR MECH[employer]IC HELPER POC GLUCOSE Routine 10/08/2018 8:38 PM CAR MECH[employer]IC HELPER HC COMPLETE BLD COUNT W/AUTO Routine 10/08/2018 6:00 PM CAR ME[employer]IC HELPER Results for this DIFF procedure are in the results section. POC GLUCOSE Routine 10/08/2018 4:32 PM CAR MECH[employer]IC HELPER POC GLUCOSE Routine 10/08/2018 12:46 PM CAR MECHANIC HELPER POC GLUCOSE Routine 10/08/2018 9:07 AM CAR MECH[employer]IC HELPER HC COMPLETE BLD COUNT W/AUTO Routine 10/08/2018 5:10 AM CAR ME[employer]IC HELPER Results for this DIFF procedure are in the results section. POC GLUCOSE Routine 10/08/2018 4:44 AM CAR MECH[employer]IC HELPER ESTIMATED GFR Routine 10/08/2018 4:00 AM CAR MECHANIC HELPER PHOSPHORUS LEVEL Routine 10/08/2018 4:00 AM CAR MECHANIC HELPER MAGNESIUM LEVEL Routine 10/08/2018 4:00 AM CAR MECH[employer]IC HELPER BASIC METABOLIC PANEL Routine 10/08/2018 4:00 AM CAR MECH[employer]IC HELPER POC GLUCOSE Routine 10/07/2018 11:36 PM CAR MECH[employer]IC HELPER POC GLUCOSE Routine 10/07/2018 7:38 PM CAR MECH[employer]IC HELPER POC GLUCOSE Routine 10/07/2018 3:50 PM CAR ME[employer]IC HELPER HC CATH DUAL LUMEN PICC Routine 10/07/2018 2:08 PM CAR ME[employer]IC HELPER HC US GUIDED VASCULAR ACCESS Routine 10/07/2018 2:08 PM CAR ME[employer]IC HELPER HC CVL PICC INSERT 5 YRS OR Routine 10/07/2018 2:08 PM CAR ME[employer]IC HELPER Results for this > W/O IMG GUID procedure are in the results section. HEMOGLOBIN & HEMATOCRIT Routine 10/07/2018 1:25 PM CAR MECH[employer]IC HELPER POC GLUCOSE Routine 10/07/2018 11:03 AM CAR MECH[employer]IC HELPER POC GLUCOSE Routine 10/07/2018 7:09 AM CAR MECH[employer]IC HELPER XR CHEST 1 VW PORTABLE Routine 10/07/2018 6:41 AM CAR ME[employer]IC HELPER POC GLUCOSE Routine 10/07/2018 4:38 AM CAR MECH[employer]IC HELPER ESTIMATED GFR Routine 10/07/2018 3:04 AM CAR MECH[employer]IC HELPER PHOSPHORUS LEVEL Routine 10/07/2018 3:04 AM CAR MECHANIC HELPER MAGNESIUM LEVEL Routine 10/07/2018 3:04 AM CAR MECH[employer]IC HELPER LDH Routine 10/07/2018 3:04 AM CAR MECH[employer]IC HELPER HEPATIC FUNCTION PANEL Routine 10/07/2018 3:04 AM CAR MECH[employer]IC HELPER BASIC METABOLIC PANEL Routine 10/07/2018 3:04 AM CAR MECH[employer]IC HELPER PROTHROMBIN TIME WITH INR Routine 10/07/2018 2:15 AM CAR ME[employer]IC HELPER HC COMPLETE BLD COUNT W/AUTO Routine 10/07/2018 2:15 AM CAR ME[employer]IC HELPER Results for this DIFF procedure are in the results section. POC GLUCOSE Routine 10/07/2018 12:45 AM CAR MECHANIC HELPER POC GLUCOSE Routine 10/06/2018 8:38 PM CAR MECH[employer]IC HELPER ESTIMATED GFR Routine 10/06/2018 3:37 PM CAR MECHANIC HELPER IONIZED CALCIUM Routine 10/06/2018 3:37 PM CAR MECH[employer]IC HELPER PHOSPHORUS LEVEL Routine 10/06/2018 3:37 PM CAR MECHANIC HELPER MAGNESIUM LEVEL Routine 10/06/2018 3:37 PM CAR MECHANIC HELPER BASIC METABOLIC PANEL Routine 10/06/2018 3:37 PM CAR MECH[employer]IC HELPER POC GLUCOSE Routine 10/06/2018 2:38 PM CAR MECH[employer]IC HELPER XR CHEST 1 VW PORTABLE STAT 10/06/2018 7:30 AM CAR MECHANIC HELPER IONIZED CALCIUM, ARTERIAL STAT 10/06/2018 6:50 AM CAR MECH[employer]IC HELPER PROTHROMBIN TIME WITH INR STAT 10/06/2018 6:50 AM CAR MECH[employer]IC HELPER PARTIAL THROMBOPLASTIN TIME STAT 10/06/2018 6:50 AM CAR ME[employer]IC HELPER Results for this (PTT) procedure are in the results section. HC COMPLETE BLD COUNT W/AUTO STAT 10/06/2018 6:50 AM CAR MECH[employer]IC HELPER Results for this DIFF procedure are in the results section. ARTERIAL BLOOD GAS STAT 10/06/2018 6:50 AM CAR MECHANIC HELPER COPPER LEVEL, SERUM Routine 10/06/2018 6:50 AM CAR ME[employer]IC HELPER ZINC LEVEL, SERUM Routine 10/06/2018 6:50 AM CAR MECHANIC HELPER POC GLUCOSE Routine 10/06/2018 6:49 AM CAR MECHANIC HELPER ESTIMATED GFR STAT 10/06/2018 6:27 AM CAR MECHANIC HELPER LACTIC ACID LEVEL STAT 10/06/2018 6:27 AM CAR MECHANIC HELPER PHOSPHORUS LEVEL STAT 10/06/2018 6:27 AM CAR MECHANIC HELPER MAGNESIUM LEVEL STAT 10/06/2018 6:27 AM CAR MECH[employer]IC HELPER COMPREHENSIVE METABOLIC STAT 10/06/2018 6:27 AM CAR ME[employer]IC HELPER Results for this PANEL procedure are in the results section. PREALBUMIN LEVEL Routine 10/06/2018 6:21 AM CAR MECHANIC HELPER GLUCOSE LEVEL, SYRINGE Routine 10/06/2018 4:53 AM CAR ME[employer]IC HELPER HEMOGLOBIN, SYRINGE Routine 10/06/2018 4:53 AM CAR MECH[employer]IC HELPER POTASSIUM, SYRINGE Routine 10/06/2018 4:53 AM CAR MECHANIC HELPER SODIUM LEVEL, SYRINGE Routine 10/06/2018 4:53 AM CAR MECHANIC HELPER IONIZED CALCIUM, ARTERIAL Routine 10/06/2018 4:53 AM CAR MECHANIC HELPER ARTERIAL BLOOD GAS, Routine 10/06/2018 4:53 AM CAR ME[employer]IC HELPER Results for this CORRECTED procedure are in the results section. LACTIC ACID, SYRINGE Routine 10/06/2018 2:10 AM CAR MECHANIC HELPER MAGNESIUM LEVEL Routine 10/06/2018 2:10 AM CAR MECHANIC HELPER GLUCOSE LEVEL, SYRINGE Routine 10/06/2018 2:10 AM CAR MECH[employer]IC HELPER HEMOGLOBIN, SYRINGE Routine 10/06/2018 2:10 AM CAR MECH[employer]IC HELPER IONIZED CALCIUM, ARTERIAL Routine 10/06/2018 2:10 AM CAR MECH[employer]IC HELPER POTASSIUM, SYRINGE Routine 10/06/2018 2:10 AM CAR MECHANIC HELPER SODIUM LEVEL, SYRINGE Routine 10/06/2018 2:10 AM CAR MECH[employer]IC HELPER ARTERIAL BLOOD GAS, Routine 10/06/2018 2:10 AM CAR MECH[employer]IC HELPER Results for this CORRECTED procedure are in the results section. CENTRAL LINE Routine 10/06/2018 1:53 AM CAR MECH[employer]IC HELPER Procedure Note - Yuni Ham MD - 10/06/2018 1:53 AM CAR MECH[employer]IC HELPER Central line Performed by: Giuliano Herrera MD [...] complications ARTERIAL LINE Routine 10/06/2018 1:29 AM CAR ME[employer]IC HELPER Procedure Note - Giuliano Herrera MD - 10/06/2018 1:29 AM CAR ME[employer]IC HELPER Arterial line Performed by: Giuliano Herrera MD [...] complications ANESTHESIA INTUBATION Routine 10/06/2018 1:11 AM CAR ME[employer]IC HELPER Procedure Note - Giuliano Herrera MD - 10/06/2018 1:11 AM [facility] ANESTHESIA INTUBATION Date/Time: 10/05/2018 11:43 PM Performed [...] PM Results for this MICROSCOPY, WITH REFLEX [employer] HEL[employer] procedure are in TO CULTURE the results section. GRAM STAIN Routine 10/05/2018 10:48 PM Results for this [employer] procedure are in the results section. URINE CULTURE Routine 10/05/2018 10:48 PM Results for this [employer] procedure are in the results section. ANTI XA RIVAROXABAN STAT 10/05/2018 9:04 PM Results for this [employer] HEL[employer] procedure are in the results section. ARTERIAL BLOOD GAS STAT 10/05/2018 9:04 PM Results for this [employer] procedure are in the results section. PROTHROMBIN TIME WITH STAT 10/05/2018 9:04 PM Results for this INR [employer] procedure are in the results section. PARTIAL THROMBOPLASTIN STAT 10/05/2018 9:04 PM Results for this TIME (PTT) [employer] procedure are in the results section. XR CHEST 1 VW PORTABLE STAT 10/05/2018 8:49 PM Results for this [employer] HEL[employer] procedure are in the results section. XR ABDOMEN 1 VW STAT 10/05/2018 8:49 PM Results for this PORTABLE [employer] procedure are in the results section. HC COMPLETE BLD COUNT STAT 10/05/2018 8:30 PM Results for this W/AUTO DIFF [employer] procedure are in the results section. ECG 12-LEAD STAT 10/05/2018 8:23 PM Results for this [employer] procedure are in the results section. POC GLUCOSE Routine 10/05/2018 8:14 PM Results for this [employer] procedure are in the results section. PREPARE RBC STAT 10/05/2018 7:46 PM Results for this CAR MECHANIC HELPER procedure are in the results section. PREPARE FRESH FROZEN STAT 10/05/2018 7:46 PM Results for this PLASMA CAR MECHANIC HELPER procedure are in the results section. ESTIMATED GFR STAT 10/05/2018 7:46 PM Results for this [employer] MECH[employer]IC HELPER procedure are in the results section. TYPE AND SCREEN STAT 10/05/2018 7:46 PM Results for this CAR MECHANIC HELPER procedure are in the results section. PHOSPHORUS LEVEL STAT 10/05/2018 7:46 PM Results for this [employer] MECH[employer]IC HELPER procedure are in the results section. MAGNESIUM LEVEL STAT 10/05/2018 7:46 PM Results for this [employer] MECH[employer]IC HELPER procedure are in the results section. LACTIC ACID LEVEL STAT 10/05/2018 7:46 PM Results for this [employer] ME[employer]IC HELPER procedure are in the results section. BASIC METABOLIC PANEL STAT 10/05/2018 7:46 PM Results for this [employer] ME[employer]IC HELPER procedure are in the results section. LAPAROTOMY, EXPLORATORY 10/05/2018 7:45 PM small bowel [employer] obstruction, perforated bowel CT ABD/PELVIC EXTERNAL Routine 10/05/2018 12:23 PM Results for this STUDY CAR MECHANIC HELPER procedure are in the results section. SURGICAL PATHOLOGY Routine 10/05/2018 8:36 AM Results for this REQUEST CAR MECHANIC HELPER procedure are in the results section. after 03/10/2018 Results Prothrombin time with INR (02/14/2019 4:18 AM CDT)Only the most recent of4 resultswithin the time period is included. Prothrombin time 22.3 (H) 11.5 - 14.5 sec [facility] INR 2.0 [facility] Comment: HOSPITAL The International Normalized Ratio (INR) is a therapeutic monitoring tool for patients who are stable on oral anticoagulant therapy. An INR of 2.0-3.0 is suggested for deep vein thrombosis/pulmonary embolism. Specimen Blood Performing Organization Address City/State/Zipcode Phone Number [facility] DEPARTMENT OF PATHOLOGY AND [address] [place] [address] [facility]IC[facility] [address] [address] ECG 12 lead (02/14/2019 4:17 AM CDT)Only the most recent of4 resultswithin the time period is included. Ventricular rate 74 [facility] Atrial rate 74 [facility] OH interval 162 [facility] QRSD interval 92 [facility] QT interval 410 [facility] QTC interval 455 [facility] P axis 1 65 [facility] QRS axis 1 66 [facility] T wave axis 41 [facility] EKG impression Normal sinus rhythm-Low voltage QRS-Incomplete right bundle branch block-Septal infarct (cited on or before 31-MAR-2017)-Abnormal ECG-In automated comparison with ECG of 13-FEB-2019 13:06,-No significan [facility] t change was found- Narrative Performed At Performing Organization Address City/State/[facility] Phone Number [facility] MUSE [address] [place] [address] CBC with platelet and differential (02/14/2019 4:15 AM CDT)Only the most recent of8 resultswithin the time period is included. WBC 12.99 (H) 4.50 - 11.00 k/uL [facility] RBC 3.82 (L) 4.40 - 6.00 m/uL [facility] HGB 11.9 (L) 14.0 - 18.0 g/dL [facility] HCT 39.0 (L) 41.0 - 51.0 % [facility] MCV 102.1 (H) 82.0 - 100.0 fL [facility] MCH 31.2 27.0 - 34.0 pg [facility] MCHC 30.5 (L) 31.0 - 37.0 g/dL [facility] RDW - SD 61.3 (H) 37.0 - 55.0 fL [facility] MPV 10.3 8.8 - 13.2 fL [facility] Platelet count 262 150 - 400 k/uL [facility] Nucleated RBC 0.00 /100 WBC [facility] Neutrophils 65.2 39.0 - 69.0 % [facility] Lymphocytes 24.0 (L) 25.0 - 45.0 % [facility] Monocytes 9.0 0.0 - 10.0 % [facility] Eosinophils 0.1 0.0 - 5.0 % [facility] Basophils 0.5 0.0 - 1.0 % [facility] Immature granulocytes 1.2 (H)Comment: 0.0 - 1.0 % [facility] "Immature [facility] granulocytes" (promyelocytes, myelocytes, metamyelocytes) Specimen Blood Performing Organization Address City/[facility]/Zipcode Phone Number [facility] DEPARTMENT OF PATHOLOGY AND [address] [place] [address] GEN[facility] [address] Estimated GFR (02/14/2019 4:00 AM CDT)Only the most recent of17 resultswithin the time period is included. Estimated GFR 65 mL/min/1.73 m2 [facility] Comment: HOSPITAL CatergoryUnitsInterpretation G1 >=90 Normal or high G2 60-89Mildly decreased [id number] to moderately decreased [id number] to severely decreased G4 15-29Severely decreased G5 <15Kidney failure The eGFR was calculated using the Chronic Kidney Disease Epidemiology Collaboration (CKD-EPI) equation. Interpretation is based on recommendations of the National Kidney Foundation-Kidney Disease Outcomes Quality Initiative (NKF-KDOQI) published in 2014. Specimen Plasma specimen Performing Organization Address City/[facility] Phone Number [facility] DEPARTMENT OF PATHOLOGY AND [address] [place] [address] Basic metabolic panel (02/14/2019 4:00 AM CDT)Only the most recent of16 resultswithin the time period is included. Sodium 139 135 - 148 mEq/L [facility] Potassium 3.9 3.5 - 5.0 mEq/L [facility] Chloride 101 98 - 112 mEq/L [facility] CO2 28 24 - 31 mEq/L [facility] Anion gap 10@ANIO 7 - 15 mEq/L [facility] BUN 24 (H) 6 - 20 mg/dL [facility] Creatinine 1.22 (H) 0.70 - 1.20 mg/dL [facility] Glucose 169 (H) 65 - 99 mg/dL [facility] Calcium 8.6 8.3 - 10.2 mg/dL [facility] Specimen Plasma specimen Performing Organization Address [facility] Phone Number [facility] DEPARTMENT OF PATHOLOGY AND [address] [place] [address] [address] Magnesium level (02/13/2019 3:59 PM CDT)Only the most recent of15 resultswithin the time period is included. Magnesium 1.8 1.6 - 2.6 mg/dL [facility] Specimen Plasma specimen Performing Organization Address City/[facility] Phone Number [facility] DEPARTMENT OF PATHOLOGY AND [address] [place] [phone] [address] Cv electrophysiology procedure (02/13/2019 12:44 PM CDT) Narrative Performed At MANAGER MACHINE: JANNETTE Saldaña MD COMPLICATIONS: None. ESTIMATED BLOOD LOSS: 10 mL. SPECIMEN REMOVED: None. PROCEDURES PERFORMED: 1.Atrial fibrillation ablation with pulmonary vein isolation. 2.Extrapulmonary vein ablation with posterior wall isolation. 3.Intracardiac echocardiogram. 4.Vein mapping. 5.Pharmacologic drug infusion. 6.Ultrasound-guided vascular access. 7.Transseptal puncture. PREOPERATIVE DIAGNOSES: 1.Paroxysmal/persistent atrial fibrillation. 2.Longstanding persistent atrial fibrillation, status post pulmonary vein ablation in 2009. 3.Morbid obesity. 4.Rheumatoid arthritis. 5.Obstructive sleep apnea, on CPAP. 6.History of deep venous thrombosis and pulmonary embolism in the past. 7.Neurogenic bladder with Wilson catheter in place. POSTOPERATIVE DIAGNOSES: 1.Paroxysmal/persistent atrial fibrillation. 2.Longstanding persistent atrial fibrillation, status post pulmonary vein ablation in 2009. 3.Morbid obesity. 4.Rheumatoid arthritis. 5.Obstructive sleep apnea, on CPAP. 6.History of deep venous thrombosis and pulmonary embolism in the past. 7.Neurogenic bladder with Wilson catheter in place. 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 PROCEDURE IN DETAIL: The patient was brought to the EP lab in a fasting state.Informed consent was obtained.The patient was prepped and draped in the usual fashion. Ultrasound-guided vascular access was obtained in the right femoral vein. Catheters were advanced including decapolar catheter placed in coronary sinus. Intracardiac echocardiogram, which was used to exclude left atrial appendage clot, monitor catheter positioning, monitor pericardial effusion, and recreate 3D geometry, and assist with transseptal puncture.Heparin bolus was given immediately after vascular access.Transseptal puncture was performed. The 3D geometry was recreated of the left atrium and the pulmonary vein. Baseline rhythm was sinus rhythm.At baseline, isolation was present in the left superior pulmonary vein, left inferior pulmonary vein, right inferior pulmonary vein.Reconnection was noted in the right superior pulmonary vein.Using a SmartTouch ablation catheter via deflectable sheath, ablation was performed along the anterior anahi of the right pulmonary veins as well as along the LA floor and then the LA roof.Although, this isolated the right superior pulmonary vein, did not isolate the posterior wall.Hence, a more extensive ablation was done across the posterior wall to achieve isolation.After isolation was achieved, confirmed with entrance and exit block, isoproterenol was started in incremental doses up to 20 mcg per minute with no reconnection of the veins and no other induced arrhythmias.Notably, while the patient was on isoproterenol at 4 mcg per minute, triple atrial stimulation with up to triple atrial stimuli was performed with no other induced arrhythmias.At this point, the procedure was completed.No evidence of pericardial effusion at the end of the case.Mean LA pressure was 16 to 18 mmHg at baseline. FINDINGS: The patient had a baseline isolation of all pulmonary veins except for the right superior pulmonary vein, which has segmental reconnection.This was isolated with ablation along the anterior roof and the anterior anahi of the right pulmonary veins.Additional ablation was performed to achieve isolation of the posterior wall, which required extensive ablation across the LA posterior wall. We initially started with LA floor and LA roof line and then extended our lesions to encompass all conducting tissue across the posterior wall. Catheter ablation was performed with initial flores of 42 barajas, which were then up titrated to 45 barajas with close esophageal temperature monitoring. Duration of the lesions was limited to only 4 to 6 seconds along the posterior wall. Contact forces were maintained between 7 and 35 gm.Post-ablation, no other arrhythmias could be induced.Persistent entrance and exit block was present in all veins and the posterior wall.Upto triple atrial extra-stimulation was done down to 200 milliseconds with no induced arrhythmias. CONCLUSION: 1.Successful re-isolation of the right superior pulmonary vein, baseline isolation of all the veins. 2.Extrapulmonary vein ablation performed with posterior wall isolation with entrance and exit block achieved. 3.No other induced arrhythmias on high-dose isoproterenol 20 mcg per minute or with triple atrial stimulation.AV Wenckebach 280 milliseconds.The atrial ERP was [address] of 600 milliseconds. RECOMMENDATIONS: The patient will complete the appropriate post-procedure wound care and activity restriction. Performing Organization Address City/State/Zipcode Phone Number [facility] [address] [place] [address] Activated clotting time (02/13/2019 12:32 PM CDT)Only the most recent of7 resultswithin the time period is included. Activated clotting time 160 (H) 96 - 152 sec [facility] Comment: Meter ID: [id number] Production Illustrator: Norman Shepherd Performing Organization Address City/[facility]/Zipcode Phone Number [facility] DEPARTMENT OF PATHOLOGY AND [address] [place], [place] [address] ECG Pre/Post Op (02/13/2019 6:53 AM CDT) Ventricular rate 79 [facility] Atrial rate 79 [facility] OH interval 152 [facility] QRSD interval 92 [facility] QT interval 410 [facility] QTC interval 470 [facility] P axis 1 25 [facility] QRS axis 1 70 [facility] T wave axis 47 [facility] EKG impression Normal sinus rhythm-Low voltage QRS-Incomplete right bundle branch block-Cannot rule out Anteroseptal infarct (cited on or before 2016)-Abnormal ECG-In automated comparison with ECG of 09-OCT-2018 08:17,-No significant change was [facility] MUSE found- Narrative Performed At Performing Organization Address City/[facility] Phone Number [facility] MUSE [address] [place] [address] Type and screen (02/13/2019 6:15 AM CDT)Only the most recent of2 resultswithin the time period is included. ABO grouping A [facility] Rh type NEG [facility] Antibody screen (gel) NEG [facility] Specimen Blood Performing Organization Address City/[facility]/Zipcode Phone Number [facility] DEPARTMENT OF PATHOLOGY AND [address] [place], [place] [id number] [address] [address] POC glucose (10/21/2018 7:43 PM CAR MECHANIC HELPER)Only the most recent of96 resultswithin the time period is included. POC glucose 133 (H) 65 - 99 mg/dL [facility] Comment: [facility] Notified RN Meter ID: [id number] Production Illustrator: Marilyn Fontanez Performing Organization Address City/State/Zipcode Phone Number [facility] DEPARTMENT OF PATHOLOGY AND [address] [place], [place] [phone] [address] [place] [address] Phosphorus level (10/20/2018 12:37 AM CAR MECHANIC HELPER)Only the most recent of12 resultswithin the time period is included. Phosphorus 2.7 2.4 - 4.5 mg/dL [facility] Specimen Plasma specimen Performing Organization Address City/[facility]/Zipcode Phone Number [facility] DEPARTMENT OF PATHOLOGY AND [address] [place] [phone] [address] XR Abdomen 2 Vw Ap W Upright And/Or Decubitus (10/18/2018 10:00 AM CAR MECHANIC HELPER) Narrative Performed At EXAMINATION: XR ABDOMEN 2 [...] right rib fractures. Spondylosis. Bilateral hip arthroplasties. [facility]-[id number] Procedure Note Hm Interface, Radiology Results Incoming - 10/18/2018 11:32 AM CAR MECHANIC HELPER EXAMINATION: XR ABDOMEN 2 VW AP W [...] right rib fractures. Spondylosis. Bilateral hip arthroplasties. [facility]-[id number] Performing Organization Address City/[facility]/Zipcode Phone Number [facility] [address] [place] [address] Triglycerides (10/18/2018 4:00 AM CAR MECHANIC HELPER) Triglycerides 227 (H) <150 mg/dL [facility] Specimen Plasma specimen Performing Organization Address City/[facility]/Zipcode Phone Number [facility] DEPARTMENT OF PATHOLOGY AND [address] [place] [phone] [address] Unsuccessful Attempt - PICC (10/07/2018 2:08 PM CAR MECHANIC HELPER) Narrative Performed At Felice Keller RN 10/07/20182:13 PM Unsuccessful Attempt - PICC Date/Time: 10/07/2018 2:08 PM Performed by: Duy Vaughn Authorized by: Yo Khan MD Consent: Consent obtained:Verbal Consent given by:Patient Risks discussed: arterial puncture, incorrect placement, bleeding, infection, superficial thrombus and deep vein thrombus [place] protocol: Procedure explained and questions answered to [...] placement. Hemoglobin & hematocrit (10/07/2018 1:25 PM CAR MECHANIC HELPER) HGB 10.2 (L) 14.0 - 18.0 g/dL [facility] HCT 34.0 (L) 41.0 - 51.0 % [facility] Specimen Blood Performing Organization Address City/State/Zipcode Phone Number [facility] DEPARTMENT OF PATHOLOGY AND [address] [place] [address] [address] XR Chest 1 Vw Portable (10/07/2018 6:41 AM CAR MECHANIC HELPER)Only the most recent of3 resultswithin the time period is included. Narrative Performed At EXAMINATION:XR CHEST 1 VW PORTABLE [facility] CLINICAL HISTORY:Ventilator Patient COMPARISON:October 06 IMPRESSION: October 06 1. Central line and visualized feeding tube are stable. 2. Pulmonary volumes remain diminished. Pulmonary congestion is unchanged. Overall appearance of the chest is similar. Procedure Note Interface, Radiology Results Incoming - 10/07/2018 7:31 AM CAR MECHANIC HELPER EXAMINATION: XR CHEST 1 VW PORTABLE CLINICAL HISTORY: Ventilator Patient COMPARISON: October 06 IMPRESSION: October 06 1. Central line and visualized feeding tube are stable. 2. Pulmonary volumes remain diminished. Pulmonary congestion is unchanged. Overall appearance of the chest is similar. Performing Organization Address City/[facility]/Zipcode Phone Number [facility] [address] [place] [address] LDH (10/07/2018 3:04 AM CAR MECHANIC HELPER) LDH 147 87 - 225 U/L [facility] Specimen Plasma specimen Performing Organization Address City/State/Zipcode Phone Number [facility] DEPARTMENT OF PATHOLOGY AND [address] [place] [address] [address] Hepatic function panel (10/07/2018 3:04 AM CAR MECHANIC HELPER) Albumin 2.8 (L) 3.5 - 5.0 g/dL [facility] Total bilirubin 0.3 0.0 - 1.2 mg/dL [facility] Bilirubin direct <0.2 0.0 - 0.3 mg/dL [facility] Alkaline phosphatase 75 40 - 129 U/L [facility] Protein 5.6 (L) 6.3 - 8.3 g/dL [facility] Comment: [place] 4.6-7.0 g/dL 1 week 4.4-7.6 g/dL 7 months-1year5.1-7.3 g/dL 1-2 years5.6-7.5 g/dL >3 years6.0-8.0 g/dL 18-150 6.3-8.3 g/dL ALT 12 5 - 50 U/L [facility] AST 12 10 - 50 U/L [facility] Specimen Plasma specimen Performing Organization Address City/[facility] Phone Number [facility] DEPARTMENT OF PATHOLOGY AND [address] [place] [phone] [place] [address] Ionized calcium (10/06/2018 3:37 PM CAR MECHANIC HELPER) pH 7.37 [facility] Ionized calcium 1.15 1.11 - 1.32 mmol/L [facility] Specimen Plasma specimen Performing Organization Address [facility] Phone Number [facility] DEPARTMENT OF PATHOLOGY AND [address] [place] [address] Ionized calcium, arterial (10/06/2018 6:50 AM CAR MECHANIC HELPER)Only the most recent of3 resultswithin the time period is included. Ionized calcium, arterial 1.08 (L) 1.11 - 1.32 mmol/L [facility] Specimen Blood Performing Organization Address [facility] Phone Number [facility] DEPARTMENT OF PATHOLOGY AND [address] [place] [phone] [place] [address] Copper level, serum (10/06/2018 6:50 AM CAR MECHANIC HELPER) Copper 89 70 - 140 ug/dL [facility] Comment: INTERPRETIVE INFORMATION: Copper, Serum [...] or malabsorption. See Compliance Statement B at [email or web address] Performed by [facility], [address] [place], [place] [id number] [email or web address], Solitario Cardona MD - Lab. Director Specimen Blood Performing Organization Address [facility] Phone Number [facility] [address] [place] [address] [facility] [address] [place] [address] Zinc level, serum (10/06/2018 6:50 AM CAR MECHANIC HELPER) Zinc 25 (L) 60 - 120 ug/dL [facility] Comment: INTERPRETIVE INFORMATION: Zinc, Serum or Plasma Circulating zinc concentrations are dependent on albumin status and are depressed with malnutrition. Zinc may also be lowered with infection, inflammation, stress, oral contraceptives, and . Zinc may be elevated with zinc supplementation or fasting. Elevated zinc concentrations may interfere with copper absorption. Test developed and characteristics determined by [facility]. See Compliance Statement B: [employer]/ Performed by [facility], [address] [place] [id number] [email or web address], Solitario Cardona MD - Lab. Director Specimen Blood Performing Organization Address [facility] Phone Number [facility] [address] [place] [address] [facility] [address] [place] [address] Partial thromboplastin time, activated (10/06/2018 6:50 AM CAR MECHANIC HELPER)Only the most recent of2 resultswithin the time period is included. PTT 31.5 23.0 - 36.0 sec [facility] Comment: PTT therapeutic range for unfractionated heparin is 61.0-112.0 seconds which corresponds to Anti-Xa 0.3-0.7 U/ml. Specimen Blood Performing Organization Address [facility] Phone Number [facility] DEPARTMENT OF PATHOLOGY AND [address] [place] [address] [facility] MEDIC[facility] [address] [address] Arterial blood gas (10/06/2018 6:50 AM CAR MECHANIC HELPER)Only the most recent of2 resultswithin the time period is included. pH, arterial 7.30 (L) 7.35 - 7.45 [facility] pCO2, arterial 43 35 - 45 mmHg [facility] pO2, arterial 174 (H) 80 - 90 mmHg [facility] Bicarbonate, arterial 20.4 (L) 21.0 - 28.0 mmol/L [facility] Base excess, arterial -5 (L) -2 - 2 mEq/L [facility] O2 saturation, arterial 99 95 - 100 % [facility] Specimen Blood Performing Organization Address City/[facility]/Zipcode Phone Number [facility] DEPARTMENT OF PATHOLOGY AND [address] [place] [address] [facility] [address] [place] [address] Lactic acid level (10/06/2018 6:27 AM CAR MECHANIC HELPER)Only the most recent of2 resultswithin the time period is included. Lactic acid 2.3 (H) 0.5 - 2.2 mmol/L [facility] Specimen Plasma specimen Performing Organization Address City/State/Zipcode Phone Number [facility] DEPARTMENT OF PATHOLOGY AND [address] [place] [address] [facility] [address] [place] [address] Comprehensive metabolic panel (10/06/2018 6:27 AM CAR MECHANIC HELPER) Sodium 141 135 - 148 mEq/L [facility] Potassium 3.3 (L) 3.5 - 5.0 mEq/L [facility] Chloride 105 98 - 112 mEq/L [facility] CO2 21 (L) 24 - 31 mEq/L [facility] Anion gap 15@ANIO 7 - 15 mEq/L [facility] BUN 19 6 - 20 mg/dL [facility] Creatinine 0.78 0.70 - 1.20 mg/dL [facility] Glucose 181 (H) 65 - 99 mg/dL [facility] Calcium 8.2 (L) 8.3 - 10.2 mg/dL [facility] Protein 5.2 (L) 6.3 - 8.3 g/dL [facility] Comment: HOSPITAL 4.6-7.0 g/dL 1 week 4.4-7.6 g/dL 7 months-1year5.1-7.3 g/dL 1-2 years5.6-7.5 g/dL >3 years6.0-8.0 g/dL 18-150 6.3-8.3 g/dL Albumin 3.0 (L) 3.5 - 5.0 g/dL [facility] A/G ratio 1.4 0.7 - 3.8 [facility] Alkaline phosphatase 68 40 - 129 U/L [facility] AST 12 10 - 50 U/L [facility] ALT 9 5 - 50 U/L [facility] Total bilirubin 0.6 0.0 - 1.2 mg/dL [facility] Specimen Plasma specimen Performing Organization Address City/[facility] Phone Number [facility] DEPARTMENT OF PATHOLOGY AND [address] [place] [phone] Prealbumin level (10/06/2018 6:21 AM CAR MECHANIC HELPER) Prealbumin 14 (L) 16 - 32 mg/dL [facility] Specimen Serum Performing Organization Address [facility] Phone Number [facility] DEPARTMENT OF PATHOLOGY AND [address] [place] [address] Sodium level, syringe (10/06/2018 4:53 AM CAR MECHANIC HELPER)Only the most recent of2 resultswithin the time period is included. Sodium, syringe 137 135 - 148 mEq/L [facility] Specimen Blood Performing Organization Address [facility] Phone Number [facility] DEPARTMENT OF PATHOLOGY AND [address] [place] [address] Potassium, syringe (10/06/2018 4:53 AM CAR MECHANIC HELPER)Only the most recent of2 resultswithin the time period is included. Potassium, syringe 3.2 (L) 3.5 - 5.0 mEq/L [facility] Specimen Blood Performing Organization Address [facility] Phone Number [facility] DEPARTMENT OF PATHOLOGY AND [address] [place] [id number] [place] [phone] Hemoglobin, syringe (10/06/2018 4:53 AM CAR MECHANIC HELPER)Only the most recent of2 resultswithin the time period is included. Hemoglobin, syringe 11.4 (L) 14.0 - 18.0 g/dL [facility] Specimen Blood Performing Organization Address [facility] Phone Number [facility] DEPARTMENT OF PATHOLOGY AND [address] [place] [address] Glucose level, syringe (10/06/2018 4:53 AM CAR MECHANIC HELPER)Only the most recent of2 resultswithin the time period is included. Glucose, syringe 189 (H) 65 - 99 mg/dL [facility] Specimen Blood Performing Organization Address [facility] Phone Number [facility] DEPARTMENT OF PATHOLOGY AND [address] [place] [id number] [place] [address] Arterial blood gas, corrected (10/06/2018 4:53 AM CAR MECHANIC HELPER)Only the most recent of2 resultswithin the time period is included. pH, arterial 7.32 (L) 7.35 - 7.45 [facility] pCO2, arterial 41 35 - 45 mmHg [facility] pO2, arterial 135 (H) 80 - 90 mmHg [facility] Temperature, Celsius 36.1 Degrees C [facility] O2 saturation, arterial 99 95 - 100 % [facility] pH, arterial corrected 7.33 [facility] pCO2, arterial corrected 40 mmHg [facility] pO2, arterial corrected 130 mmHg [facility] Base excess, arterial -5 (L) -2 - 2 mEq/L [facility] Specimen Blood Performing Organization Address [facility] Phone Number [facility] DEPARTMENT OF PATHOLOGY AND [address] [place] [address] Lactic acid, syringe (10/06/2018 2:10 AM CAR MECHANIC HELPER) Lactic acid, syringe 1.5 0.5 - 2.2 mmol/L [facility] Specimen Blood Performing Organization Address [facility] Phone Number [facility] DEPARTMENT OF PATHOLOGY AND [address] [place] [address] Urinalysis screen and microscopy, with reflex to culture (10/05/2018 10:48 PM CAR MECHANIC HELPER) Specimen site Random void [facility] Color, UA Yellow [facility] Appearance, UA Hazy [facility] Specific gravity, UA 1.030 1.001 - 1.035 [facility] pH, UA 5.0 5.0 - 8.5 [facility] Protein, UA 1+ (A) Negative [facility] Glucose, UA Negative Negative [facility] Ketones, UA Negative Negative [facility] Bilirubin, UA Negative Negative [facility] Blood, UA Large (A) Negative [facility] Nitrite, UA Negative Negative [facility] Urobilinogen, UA SEE COMMENT <2.0 [facility] Comment: Footnote--------- UNABLE TO REPORT Leukocyte esterase, UA Moderate (A) Negative [facility] WBC, UA 92 (H) 0 - 1 /HPF [facility] RBC, UA 80 (H) 0 - 5 /HPF [facility] Bacteria, UA None seen None seen [facility] Yeast, UA Moderate (A) [facility] Yeast with pseudohyphae, UA Few (A) [facility] Specimen Urine Performing Organization Address [facility] Phone Number [facility] DEPARTMENT OF PATHOLOGY AND [address] [place] [address] Gram stain (10/05/2018 10:48 PM CAR MECHANIC HELPER) Gram stain result Moderate WBC's [facility] Many Yeast Comment: Specimen Information Specimen Source: Urine Specimen Site: Random void Specimen Urine - Random void Performing Organization Address [facility] Phone Number [facility] DEPARTMENT OF PATHOLOGY AND [address] [place] [address] Urine culture (10/05/2018 10:48 PM CAR MECHANIC HELPER) Urine culture isolate Malgorzata albicans [facility] 10-5 cfu/ml [facility] The performance characteristics of this assay on this isolate were validated by the Microbiology Laboratory at [facility].This source has not been approved by the [...] Urine - Random void Performing Organization Address [facility] Phone Number [facility] DEPARTMENT OF PATHOLOGY AND [address] [place] [address] Anti Xa Rivaroxaban (10/05/2018 9:04 PM CAR MECHANIC HELPER) Anti Xa, Rivaroxaban 40 ng/mL [facility] Comment: HOSPITAL This test was developed and its performance characteristics determined by [facility] in a manner [...] ___LACID results called to and read back [facility] DEPARTMENT OF PATHOLOGY AND GENOMIC by KALEBMARCIA GIRON/ESTER(name/location) 10/05/2018 2106___ (date/time) by FUAD__. PER NAVYA FROM PHARMACY ADD ON RIVXA 10/05/201821:33 Performing Organization Address City/State/Zipcode Phone Number [facility] DEPARTMENT OF PATHOLOGY AND [address] [place] [address] [address] [address] XR Abdomen 1 Vw Portable (10/05/2018 8:49 PM CAR MECHANIC HELPER) Addenda Addendum by Jaiden Zelaya MD on [...] Patient is status post bilateral hip arthroplasty. [facility]-[id number] Procedure Note Interface, Radiology Results Incoming - 10/05/2018 9:05 PM CAR MECHANIC HELPER EXAMINATION: XR ABDOMEN 1 VW PORTABLE CLINICAL [...] Patient is status post bilateral hip arthroplasty. [facility]-[id number] Performing Organization Address [facility] Phone Number [facility] [address] [place] [address] Prepare fresh frozen plasma (10/05/2018 7:46 PM CAR MECHANIC HELPER) Product name Thawed Plasma [facility] Unit number [id number] [facility] Product code [id number] [facility] Dispense status Returned to BB not [facility] transfused [facility] Blood expiration date [id number] [facility] Blood type code 6200 [facility] Blood type A POSITIVE [facility] Product name Thawed Plasma [facility] Unit number [id number] [facility] Product code [id number] [facility] Dispense status Returned to BB not [facility] Blood expiration date [id number] [facility] Blood type code 0600 [facility] Blood type A NEGATIVE [facility] Product name Thawed Plasma [facility] Unit number [id number] [facility] Product code [id number] [facility] Dispense status Returned to BB not [facility] transfused [facility] Blood expiration date [id number] [facility] Blood type code 0600 [facility] Blood type A NEGATIVE [facility] Product name Thawed Plasma [facility] Unit number [id number] [facility] Product code [id number] [facility] Dispense status Returned to BB not [facility] Blood expiration date [id number] [facility] Blood type code 0600 [facility] Blood type A NEGATIVE [facility] Performing Organization Address City/State/Zipcode Phone Number [facility] DEPARTMENT OF PATHOLOGY AND [address] [place] [address] GENOM[address] MEDIC[address] [address] Prepare RBC (10/05/2018 7:46 PM CAR MECHANIC HELPER) Product name Apheresis Red Cell AS3 #2 LR [facility] Unit number [id number] [facility] Product code [id number] [facility] Dispense status Returned to BB not [facility] transfused [facility] Blood expiration date [id number] [facility] Blood type code 0600 [facility] Blood type A NEGATIVE [facility] Product name Apheresis Red Cell AS3 #1 LR [facility] Unit number [id number] [facility] Product code [id number] [facility] Dispense status Returned to BB not [facility] Blood expiration date [id number] [facility] Blood type code 0600 [facility] Blood type A NEGATIVE [facility] Product name Apheresis Red Cell AS3 #2 LR [facility] Unit number [id number] [facility] Product code [id number] [facility] Dispense status Returned to BB not [facility]used [facility] Blood expiration date [id number] [facility] Blood type code 0600 [facility] Blood type A NEGATIVE [facility] Product name Apheresis Red Cell AS3 #2 LR [facility] Unit number [id number] [facility] Product code [id number] [facility] Dispense status Returned to BB not [facility]used [facility] Blood expiration date [id number] [facility] Blood type code 0600 [facility] Blood type A NEGATIVE [facility] Performing Organization Address City/State/Zipcode Phone Number [facility] DEPARTMENT OF PATHOLOGY AND [address] [place] [address] GENOMIC MEDICINE [address] [address] [address] Abd/Pelvic External Study (10/05/2018 12:23 PM CAR MECHANIC HELPER) Narrative Performed At This exam was not acquired at a [facility] facility and has not been [facility] interpreted by a [facility] Provider.The exam was imported into our imaging system for comparisons purposes. Performing Organization Address City/State/Zipcode Phone Number [address] [address] Surgical pathology request (10/05/2018 8:36 AM CAR MECHANIC HELPER) [facility] DEPARTMENT OF PATHOLOGY AND GENOMIC MEDICINE Surgical pathology report See link below for PDF [facility] DEPARTMENT OF Lab Report PATHOLOGY AND GENOMIC MEDICINE Result status This is Final Report [facility] DEPARTMENT OF for [id number] PATHOLOGY AND GENOMIC MEDICINE Performing Organization Address City/State/Zipcode Phone Number [facility] DEPARTMENT OF PATHOLOGY AND [address] [place] [address] [place] [address] GENOMIC MEDICINE after 03/10/2018 Insurance Payer Benefit Plan / Group Subscriber ID Type Phone Address MEDICARE MEDICARE PART A AND B xxxxxxxxxx Medicare [place], [place] TONI MUÑOZ OPEN ACCESS/NETWORK xxxxxxxxxxx HMO Advance Directives Patient has advance care planning documents on file. For more information, please contact:Fidencio Garnett[address] [place] [address]
--- OUTSIDE RECORDS SUMMARY | 2019-03-11 19:08 | XMS REPORT | Clinical Summary ---
:1960 Author Organization [facility] Address [address] [place] [address] Care Team Providers Name Role Phone Unavailable [...] Not on file Results Not on fileafter 03/10/2018
[2019-03-11] MEDS ORDERED: NA CHLORIDE 0.9% 1,000 ML ONE ×2 (19:54→22:32)
[2019-03-11] MEDS ORDERED: FENTANYL CITR 100 MCG/2 ML ONE ×2 (19:54→21:46)
[2019-03-11] MEDS ORDERED: ONDANSETRON 4 MG/2 ML VIAL ONE ×2 (19:54→20:33)
[2019-03-11 20:03] LABS: Protime INR 1.36
[2019-03-11 20:04] LABS: Absolute Lymphocytes (CBC) 3.4 K/uL (0.7-4.9); Absolute Monocytes 0.8 K/uL (0.1-1.3); Absolute Neutrophil 5.9 K/uL (1.8-8.0); Basophils % 0.5 % (0-1.3); Eosinophils % 0.7 % (0-4.4); Hematocrit 39.2 % (39.6-49.0); Lymphocytes % 33.1 % (15.3-44.8); MPV 8.5 fL (7.6-11.3); Monocytes % 8.2 % (3.3-12.3)
[2019-03-11 20:10] LABS: Urine Blood TRACE (NEG); Urine Glucose NEGATIVE (NEG); Urine Protein NEGATIVE (NEG)
[2019-03-11 20:14] LABS: Urine Bacteria <20 /HPF (NONE SEEN); Urine RBC <5 /HPF (NONE SEEN)
[2019-03-11 20:15] LABS: Urine Culture Reflex Order NOT NEEDED; Urine Yeast PRESENT (NONE SEEN)
[2019-03-11 20:19] LABS: ALT/SGPT 23 U/L (12-78); AST/SGOT 8 U/L (15-37); Albumin 3.5 g/dL (3.4-5.0); Alkaline Phosphatase 96 U/L (45-117); BUN Blood Urea Nitrogen 25 mg/dL (7-18); Bicarbonate 27 mmol/L (21-32); Bilirubin Direct 0.1 mg/dL (0-0.2); Bilirubin Total 0.3 mg/dL (0.2-1.0); Glucose Level 167 mg/dL (74-106); Lipase 188 U/L (73-393); Potassium 3.9 mmol/L (3.5-5.1); Protein, Total 6.5 g/dL (6.4-8.2); Sodium Level 140 mmol/L (136-145); Troponin (Emerg Dept Use Only) < 0.02 ng/mL (0.0-0.045)
--- NOTE | 2019-03-11 20:51 | RAD REPORT ---
EXAM DESCRIPTION: RAD - Chest Single View - 03/11/2019 8:06 pm CLINICAL HISTORY: Shortness of breath, weakness COMPARISON: October 2018 TECHNIQUE: AP portable chest image was obtained 2002 hours . FINDINGS: Lung volumes are low. Large body habitus accentuates lung base markings. Focal infiltrate is not confirmed. No failure or volume overload. Right-sided vascular access catheter similar to comp arison. Heart and vasculature are normal. No measurable pleural effusion and no pneumothorax. No acut e bony abnormality seen. No acute aortic findings suspected. IMPRESSION: Shallow inspiration, limited portable study without acute cardiopulmonary finding. No significant change from comparison.
[2019-03-11] MEDS ORDERED: Levofloxacin500mg IV 500 MG/100 ML BAG IV ONE (21:02)
[2019-03-11] MEDS ORDERED: DIPHENHYDRAMINE 50 MG/ML VIAL ONE (21:54)
[2019-03-11] MEDS ORDERED: HYDROCODONE/APAP 10/325 TAB ONE (23:07)
--- NOTE | 2019-03-11 23:13 | EDPHYS ---
Physician Documentation [facility] Name: Husam Vela Age: 58 yrs Sex: Male : 1960 Arrival Date: 03/11/2019 Time: 19:05 Bed 4 Private MD: Yuliana Tubbs C ED Physician Lane Cummings HPI: 03/12 00:19 This 58 yrs old Male presents to ER via Wheelchair with complaints of Urinary gs Problem. 00:19 The patient presents to the emergency department with vomiting. Onset: The gs symptoms/episode began/occurred 2 week(s) ago, and became worse and became persistent. Possible causes: unknown. The symptoms are aggravated by nothing. The symptoms are alleviated by nothing. Associated signs and symptoms: Pertinent positives: dysuria, Pertinent negatives: fever. Severity of symptoms: At their worst the symptoms were moderate in the emergency department the symptoms are unchanged. The patient has experienced similar episodes in the past, a few times. The patient has been recently seen by a physician: the patient's primary care provider. on abx uti, levaquin sensitive. Historical: - Allergies: 03/11 19:25 Demerol; bb 19:25 Latex, Natural Rubber; bb 19:25 Remicade; bb - Home Meds: 19:25 anakinra subcutaneous once daily [Active]; methotrexate (PF) subcutaneous subcutaneous bb [Active]; sotalol 120 mg oral tab 1 tab 2 times per day [Active]; Xarelto 20 mg Oral tab 1 tab once daily [Active]; chlorthalidone 25 mg Oral tab 1 tab once daily [Active]; spironolactone 50 mg Oral tab 1 tab 2 times per day [Active]; prednisone 5 mg Oral tab 3 tabs once daily [Active]; acetazolamide 250 mg Oral tab 1 tab once daily [Active]; Cymbalta 60 mg Oral cpDR 2 caps once daily [Active]; folic acid 1 mg Oral tab 1 tab once daily [Active]; Protonix 40 mg Oral chew 1 tab once daily [Active]; [place] 7.5-325 mg Oral tab 1 tab every 6 hours [Active]; - PMHx: 19:25 Atrial Fib; Hypertension; 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 - Social history:: Smoking status: Patient/guardian denies using tobacco, Patient/guardian denies using alcohol, street drugs. - Ebola Screening: : No symptoms or risks identified at this time. ROS: 03/12 00:19 All other systems are negative. gs Exam: 00:19 Head/Face: Normocephalic, atraumatic. Eyes: Pupils equal round and reactive to light, gs extra-ocular motions intact. Lids and lashes normal. Conjunctiva and sclera are non-icteric and not injected. Cornea within normal limits. Periorbital areas with no swelling, redness, or edema. ENT: Nares patent. No nasal discharge, no septal abnormalities noted. Tympanic membranes are normal and external auditory canals are clear. Oropharynx with no redness, swelling, or masses, exudates, or evidence of obstruction, uvula midline. Mucous membranes moist. Neck: Trachea midline, no thyromegaly or masses palpated, and no cervical lymphadenopathy. Supple, full range of motion without nuchal rigidity, or vertebral point tenderness. No Meningismus. Chest/axilla: Normal chest wall appearance and motion. Nontender with no deformity. No lesions are appreciated. Cardiovascular: Regular rate and rhythm with a normal S1 and S2. No gallops, murmurs, or rubs. Normal PMI, no JVD. No pulse deficits. Respiratory: Lungs have equal breath sounds bilaterally, clear to auscultation and percussion. No rales, rhonchi or wheezes noted. No increased work of breathing, no retractions or nasal flaring. 00:19 Skin: Warm, dry with normal turgor. Normal color with no rashes, no lesions, and no evidence of cellulitis. Neuro: Awake and alert, GCS 15, oriented to person, place, time, and situation. Cranial nerves II-XII grossly intact. Motor strength 5/5 in all extremities. Sensory grossly intact. Cerebellar exam normal. Normal gait. 00:19 Constitutional: The patient appears alert, awake. 00:19 Abdomen/GI: Palpation: mild abdominal tenderness, in all quadrants, Hernia: noted in the paraumbilical area. 00:19 Musculoskeletal/extremity: Perfusion: the patient is normally perfused throughout, Edema, 1+ to the left midcalf, left ankle, right midcalf and right ankle is noted. 00:31 ECG was reviewed by the Attending Physician. Vital Signs: 03/11 19:25 BP 125 / 81; Pulse 89; Resp 16 S; Temp 98(O); Pulse Ox 98% on R/A; Weight 176.9 kg (R); bb Height 6 ft. 3 in. (190.50 cm) (R); Pain 7/10; 20:02 BP 105 / 76; Pulse 66; Resp 19; Pulse Ox 97% on R/A; ea 21:10 BP 110 / 76; Pulse 85; Resp 18; Pulse Ox 98% on R/A; ea 22:04 BP 107 / 65; Pulse 88; Resp 16; Pulse Ox 99% on R/A; mt 23:12 BP 106 / 69; Pulse 87; Resp 18; Pulse Ox 96% on R/A; ea 19:25 Body Mass Index 48.75 (176.90 kg, 190.50 cm) bb MDM: 19:32 Patient medically screened. 03/12 00:19 Differential diagnosis: gastritis, pancreatitis, sepsis, pneumonia, bowel obstruction. Data reviewed: vital signs, nurses notes, old medical records, lab test result(s), EKG, radiologic studies. Counseling: I had a detailed discussion with the patient and/or guardian regarding: the historical points, exam findings, and any diagnostic results supporting the discharge/admit diagnosis, lab results, radiology results, the need for outpatient follow up, doesn't want admission says back to baseline. Response to treatment: the patient's symptoms have markedly improved after treatment, the patient's condition has returned to base line, and as a result, I will discharge patient. 03/11 19:34 Order name: Basic Metabolic Panel; Complete Time: 20:31 03/11 19:34 Order name: Blood Culture Adult (2) 03/11 19:34 Order name: CBC with Diff; Complete Time: 20:31 03/11 19:34 Order name: Lactate; Complete Time: 22:11 03/11 19:34 Order name: LFT's; Complete Time: 20:31 03/11 19:34 Order name: Lipase; Complete Time: 20:31 03/11 19:34 Order name: Procalcitonin; Complete Time: 22:11 gs 03/11 19:34 Order name: Protime (+inr); Complete Time: 20:31 gs 03/11 19:34 Order name: Troponin (emerg Dept Use Only); Complete Time: 20:31 gs 03/11 19:34 Order name: Urine Microscopic Only; Complete Time: 20:31 gs 03/11 19:34 Order name: Chest Single View XRAY; Complete Time: 22:11 gs 03/11 20:06 Order name: Urine Dipstick--Ancillary (enter results) mw2 03/11 20:07 Order name: Urine Dipstick-Ancillary; Complete Time: 20:31 EDMS 03/11 23:12 Order name: Lactate Sepsis 2 HR Follow-up; Complete Time: 23:13 EDMS 03/11 19:34 Order name: Accucheck; Complete Time: 19:50 gs 03/11 19:34 Order name: Cardiac monitoring; Complete Time: 19:43 03/11 19:34 Order name: EKG - Nurse/Tech; Complete Time: 19:43 gs 03/11 19:34 Order name: IV Saline Lock - Large Bore; Complete Time: 19:43 gs 03/11 19:34 Order name: Labs collected and sent; Complete Time: 19:43 gs 03/11 19:34 Order name: O2 Per Protocol; Complete Time: 19:43 gs 03/11 20:38 Order name: CT Chest Abdomen Pelvis W/O Contrast 03/11 19:34 Order name: O2 Sat Monitoring; Complete Time: 19:43 03/11 19:34 Order name: Urine Dipstick-Ancillary (obtain specimen); Complete Time: 20:04 gs EC:31 Rate is 92 beats/min. Rhythm is regular. IA interval is normal. QRS interval is normal. gs QT interval is normal. T waves are Flattened. Clinical impression: NSR w/ Non-specific ST/T Changes. Interpreted by me. Administered Medications: 03/11 19:49 Drug: NS 0.9% 1000 ml Route: IV; Rate: 1 bolus; Site: Port-a-cath; ea 19:49 Drug: Zofran 4 mg Route: IVP; Site: Port-a-cath; ea 20:20 Follow up: Response: No adverse reaction; Nausea unchanged ea 19:51 Drug: fentaNYL (PF) 50 mcg Route: IVP; Site: Port-a-cath; ea 20:20 Follow up: Response: No adverse reaction; Pain is decreased ea 20:24 Drug: Zofran 4 mg Route: IVP; Site: Port-a-cath; ea 21:40 Follow up: Response: No adverse reaction ea 21:10 Drug: LevaQUIN 500 mg Volume: 100 ml; Route: IVPB; Infused Over: 60 mins; Site: ea Port-a-cath; 22:15 Follow up: Response: No adverse reaction; IV Status: Completed infusion; IV Intake: ea 100ml 21:40 Drug: fentaNYL (PF) 50 mcg Route: IVP; Site: Port-a-cath; ea 22:20 Follow up: Response: No adverse reaction; Pain is decreased ea 21:47 Drug: Benadryl 12.5 mg Route: IVP; Site: Port-a-cath; ea 22:20 Follow up: Response: No adverse reaction ea 22:26 Drug: NS 0.9% 1000 ml Route: IV; Rate: 1 bolus; Site: Port-a-cath; ea 23:28 Follow up: Response: No adverse reaction; IV Status: Completed infusion; IV Intake: ea 1000ml 22:57 Drug: [place] 10 mg-325 mg 1 tabs Route: PO; ea 23:28 Follow up: Response: No adverse reaction ea Point of Care Testing: Blood Glucose: 19:49 Blood Glucose: 155 mg/dL; mt Ranges: Critical Glucose Levels:Adult <50 mg/dl or >400 mg/dl <40 mg/dl or >180 mg/dl Disposition: 03/11/19 23:12 Discharged to Home. Impression: Vomiting, Weakness. - Condition is Stable. - Discharge Instructions: Nausea and Vomiting, Adult, Weakness. - Medication Reconciliation Form, Thank You Letter, Antibiotic Education, Prescription Opioid Use form. - Follow up: Private Physician; When: 1 - 2 days; Reason: Re-evaluation by your physician. Signatures: Dispatcher [employer] Lacey Shah RN RN bb Antunez, Elena, RN RN ea Starr, Gregory, MD MD gs Corrections: (The following items were deleted from the chart) 23:34 23:12 03/11/2019 23:12 Discharged to Home. Impression: Vomiting; Weakness. Condition is ea Stable. Forms are Medication Reconciliation Form, Thank You Letter, Antibiotic Education, Prescription Opioid Use. Follow up: Private Physician; When: 1 - 2 days; Reason: Re-evaluation by your physician. gs
--- NOTE | 2019-03-11 23:13 | ER ---
Nurse's Notes [facility] Name: Husam Vela Age: 58 yrs Sex: Male : 1960 Arrival Date: 03/11/2019 Time: 19:05 Bed 4 Private MD: Yuliana Tubbs C Diagnosis: Vomiting;Weakness Presentation: 03/11 19:27 Presenting complaint: Patient states: he has been on several different antibiotics for bb a UTI and he is feeling worse. Transition of care: patient was not received from another setting of care. Onset of symptoms was March 11, 2019. Risk Assessment: Do you want to hurt yourself or someone else? Patient reports no desire to harm self or others. Initial Sepsis Screen: Does the patient meet any 2 criteria? No. Patient's initial sepsis screen is negative. Does the patient have a suspected source of infection? Yes: Catheter related infection (Wilson/dialysis/PICC/central line). Care prior to arrival: None. 19:27 Method Of Arrival: Wheelchair bb 19:27 Acuity: CECI 3 bb Historical: - Allergies: 19:25 Demerol; bb 19:25 Latex, Natural Rubber; bb 19:25 Remicade; bb - Home Meds: 19:25 anakinra subcutaneous once daily [Active]; methotrexate (PF) subcutaneous subcutaneous bb [Active]; sotalol 120 mg oral tab 1 tab 2 times per day [Active]; Xarelto 20 mg Oral tab 1 tab once daily [Active]; chlorthalidone 25 mg Oral tab 1 tab once daily [Active]; spironolactone 50 mg Oral tab 1 tab 2 times per day [Active]; prednisone 5 mg Oral tab 3 tabs once daily [Active]; acetazolamide 250 mg Oral tab 1 tab once daily [Active]; Cymbalta 60 mg Oral cpDR 2 caps once daily [Active]; folic acid 1 mg Oral tab 1 tab once daily [Active]; Protonix 40 mg Oral chew 1 tab once daily [Active]; O'Brien 7.5-325 mg Oral tab 1 tab every 6 hours [Active]; - PMHx: 19:25 Atrial Fib; Hypertension; 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 - Social history:: Smoking status: Patient/guardian denies using tobacco, Patient/guardian denies using alcohol, street drugs. - Ebola Screening: : No symptoms or risks identified at this time. Screenin:30 Abuse screen: Denies threats or abuse. Nutritional screening: No deficits noted. ea Tuberculosis screening: No symptoms or risk factors identified. Fall Risk None identified. Assessment: 19:30 General: Appears uncomfortable, Behavior is calm, cooperative, appropriate for age. ea Pain:. Pain: Complains of pain in right flank pain Pain radiates to pelvis. Neuro: Level of Consciousness is awake, alert, obeys commands, Oriented to person, place, time, situation. Cardiovascular: Patient's skin is warm and dry. Respiratory: Airway is patent Respiratory effort is even, unlabored, Respiratory pattern is regular, symmetrical. GI: Abdomen is non-distended. : Wilson in place to gravity drainage Reports pain flank(s). Derm: Skin is pink, warm \T\ dry. Musculoskeletal: Circulation, motion, and sensation intact. 20:25 Reassessment: Patient and/or family updated on plan of care and expected duration. Pain ea level reassessed. Patient is alert, oriented x 3, equal unlabored respirations, skin warm/dry/pink. Pt reports pain has decreased but nausea is still there. Provider notified, med order obtained, medication administered, pt tolerated well. 21:14 Reassessment: Patient is alert, oriented x 3, equal unlabored respirations, skin ea warm/dry/pink. Pt returned from CT. 22:30 Reassessment: Patient and/or family updated on plan of care and expected duration. Pain ea level reassessed. Patient is alert, oriented x 3, equal unlabored respirations, skin warm/dry/pink. Patient states feeling better. 23:12 Reassessment: Patient and/or family updated on plan of care and expected duration. Pain ea level reassessed. Patient is alert, oriented x 3, equal unlabored respirations, skin warm/dry/pink. Patient states feeling better. 23:28 Reassessment: Patient and/or family updated on plan of care and expected duration. Pain ea level reassessed. Patient is alert, oriented x 3, equal unlabored respirations, skin warm/dry/pink. Pt reports he is feeling better than when he first got here. Discharge instructions given to patient and significant other, verbalized the understanding of instruction. Pt left via wheelchair per significant other, pt tolerating well. Vital Signs: 19:25 BP 125 / 81; Pulse 89; Resp 16 S; Temp 98(O); Pulse Ox 98% on R/A; Weight 176.9 kg (R); bb Height 6 ft. 3 in. (190.50 cm) (R); Pain 7/10; 20:02 BP 105 / 76; Pulse 66; Resp 19; Pulse Ox 97% on R/A; ea 21:10 BP 110 / 76; Pulse 85; Resp 18; Pulse Ox 98% on R/A; ea 22:04 BP 107 / 65; Pulse 88; Resp 16; Pulse Ox 99% on R/A; mt 23:12 BP 106 / 69; Pulse 87; Resp 18; Pulse Ox 96% on R/A; ea 19:25 Body Mass Index 48.75 (176.90 kg, 190.50 cm) bb ED Course: 19:05 Patient arrived in ED. as 19:11 Lane Cummings MD is Attending Physician. gs 19:13 Yuliana Tubbs MD is Private Physician. as 19:22 Gustavo Vásquez, RN is Primary Nurse. la1 19:24 Sisi Garcia, STACEY is Primary Nurse. ea 19:25 Arm band placed on Patient placed in an exam room, on a stretcher, on pulse oximetry. bb EKG completed in triage. Results shown to MD. Family accompanied patient. 19:28 Triage completed. bb 19:30 Patient has correct armband on for positive identification. Placed in gown. Bed in low ea position. Call light in reach. Side rails up X2. 19:35 Accessed Port-a-Cath. using accessed w/ # 20 Harris needle, 18G Nexia IV Catheter ea ,sterile technique, Clean \T\ dry. Good blood return. Flushes easily. 20:06 Chest Single View XRAY In Process Unspecified. EDMS 21:43 CT Chest Abdomen Pelvis W/O Contrast In Process Unspecified. EDMS 23:28 No provider procedures requiring assistance completed. IV discontinued, intact, ea bleeding controlled, No redness/swelling at site. Pressure dressing applied. Administered Medications: 19:49 Drug: NS 0.9% 1000 ml Route: IV; Rate: 1 bolus; Site: Port-a-cath; ea 19:49 Drug: Zofran 4 mg Route: IVP; Site: Port-a-cath; ea 20:20 Follow up: Response: No adverse reaction; Nausea unchanged ea 19:51 Drug: fentaNYL (PF) 50 mcg Route: IVP; Site: Port-a-cath; ea 20:20 Follow up: Response: No adverse reaction; Pain is decreased ea 20:24 Drug: Zofran 4 mg Route: IVP; Site: Port-a-cath; ea 21:40 Follow up: Response: No adverse reaction ea 21:10 Drug: LevaQUIN 500 mg Volume: 100 ml; Route: IVPB; Infused Over: 60 mins; Site: ea Port-a-cath; 22:15 Follow up: Response: No adverse reaction; IV Status: Completed infusion; IV Intake: ea 100ml 21:40 Drug: fentaNYL (PF) 50 mcg Route: IVP; Site: Port-a-cath; ea 22:20 Follow up: Response: No adverse reaction; Pain is decreased ea 21:47 Drug: Benadryl 12.5 mg Route: IVP; Site: Port-a-cath; ea 22:20 Follow up: Response: No adverse reaction ea 22:26 Drug: NS 0.9% 1000 ml Route: IV; Rate: 1 bolus; Site: Port-a-cath; ea 23:28 Follow up: Response: No adverse reaction; IV Status: Completed infusion; IV Intake: ea 1000ml 22:57 Drug: O'Brien 10 mg-325 mg 1 tabs Route: PO; ea 23:28 Follow up: Response: No adverse reaction ea Point of Care Testing: Blood Glucose: 19:49 Blood Glucose: 155 mg/dL; mt Ranges: Intake: 22:15 IV: 100ml; Total: 100ml. ea 23:28 IV: 1000ml; Total: 1100ml. ea Outcome: 23:12 Discharge ordered by MD. gs 23:28 Discharged to home via wheelchair, with significant other. ea 23:28 Condition: good 23:28 Discharge instructions given to patient, family, Instructed on discharge instructions, follow up and referral plans. Demonstrated understanding of instructions, follow-up care. 23:34 Patient left the ED. ea Signatures: Dispatcher [employer] Mojgan Finley Brenda, RN RN bb Attema, Lee, RN RN la1 Thompson, Moriah mt Antunez, Elena, RN RN ea Starr, Gregory, MD MD gs
[2019-03-11] MEDS ORDERED: HEPARIN 500 UNIT/5 ML SYR IV ONE (23:23)
[2019-03-11 23:39] VITALS: TEMP 98
[2019-03-11 23:44] VITALS: BP 106/69; O2SAT 96
--- NOTE | 2019-03-13 07:49 | EKG ---
Test Date: 2019-03-11 Test Time: 19:40:37 Lock Assembler: KRUPA MEASUREMENT RESULTS: Intervals: Rate: 92 ID: [id number] QRSD: 80 QT: 370 QTc: 457 Edison: P: 75 ID: [id number] QRS: 97 T: 74 INTERPRETIVE STATEMENTS: Normal sinus rhythm Rightward axis Low voltage QRS Cannot rule out Anteroseptal infarct, age undetermined Abnormal ECG Compared to ECG 08/04/2018 08:03:00 Right-axis deviation now present Myocardial infarct finding still present Electronically Signed On 03-13-19 07:48:14 CDT by Rangel Navarro
--- NOTE | 2019-03-13 10:20 | RAD REPORT ---
EXAM DESCRIPTION: CT - Chest Abd Pelvis Wo Con - 03/11/2019 9:43 pm CLINICAL HISTORY: MALAISE COMPARISON: None Available. TECHNIQUE: CT of the chest, abdomen and pelvis performed without IV contrast. DLP: 1342 mGycm FINDINGS: Chest: Thyroid: No abnormalities of the visualized thyroid. Great Vessels: Great vessels have normal anatomic configuration. Thoracic Aorta: Atherosclerotic calcification of the thoracic aorta. Pulmonary arteries: The main pulmonary artery is not dilated. Heart: No cardiomegaly or significant pleural effusion. Lymph Nodes: No enlarged mediastinal lymph nodes identified. Esophagus: No abnormalities of the esophagus identified Other: No additional findings. Lungs: No alveolar or interstitial airspace opacities identified. Pleura: No pleural effusion or pneumothorax. Trachea/Airways: No abnormalities of the visualized trachea or airways. Abdomen: Liver: The liver has normal size and density. No intrahepatic mass or biliary dilatation. Gallbladder: Prior cholecystectomy. Spleen, Pancreas, and Adrenal Glands: The spleen, pancreas, and adrenal glands are unremarkable. Kidneys: Severe atrophy of the left [place] kidney. Small hypodense exophytic structure arising fr om the interpolar right kidney likely represents a cyst but incompletely evaluated without IV contras t. No hydronephrosis. Vasculature: Aortoiliac atherosclerosis and The portal vein is patent. The proximal visceral and re nal arteries are patent. Stomach: Postoperative change in the stomach with surgical clips throughout the epigastric region. Other: No free intraperitoneal air. No free fluid or lymphadenopathy. Pelvis: Bladder: Wilson catheter in the urinary bladder. Bowel: No dilated loops of large or small bowel. Large ventral hernia containing majority of bowel and mesentery. No evidence of obstruction. Appendix: Not identified. Pelvis: Prostate is not definitely enlarged. Suboptimal evaluation of the pelvis in the morning artif act from bilateral hip arthroplasties. Bones: Bilateral total hip arthroplasties. Mild endplate spondylosis throughout the visualized thorac ic and lumbar spine. Multiple bilateral healed rib fractures. IMPRESSION: 1. No acute inflammatory or obstructive process identified. 2. Large ventral hernia containing a majority of bowel and mesentery without evidence of obstruction. 3. Left renal atrophy. This exam was performed according to our departmental dose-optimization program, which includes autom ated exposure control, adjustment of the mA and/or kV according to patient size and/or use of iterati ve reconstruction technique. Electronically signed by: Figueroa Mckeon 03/11/2019 10:28 PM CDT Due to temporary technical issues with the PACS/Fluency reporting system, reports are being signed by the in house radiologist as a courtesy to ensure prompt reporting. The interpreting radiologist is f ully responsible for the content of the report.
== END 2019-03-11 23:34 | disposition home or self-care (01) ==
LOC: ER 19:04
DX: R11.10 Vomiting, unspecified (principal); R53.1 Weakness; R30.0 Dysuria; I48.91 Unspecified atrial fibrillation; I10 Essential (primary) hypertension; M06.9 Rheumatoid arthritis, unspecified; C62.90 Malignant neoplasm of unspecified testis, unspecified whether descended or undescended
CPT/HCPCS: 36415; 71045; 71250; 74176; 80048; 80076; 81003; 81015; 82962; 83605; 83690; 84145; 84484; 85025; 85610; 87040; 93005; 96361; 96365; 96375; 99284; J1642; J2405; J3010; J7030

== ENCOUNTER 2019-06-13 11:49 | Inpatient (IN) | payer OTHER ==
--- OUTSIDE RECORDS SUMMARY | 2019-06-13 12:27 | XMS REPORT | Clinical Summary ---
:1960 Author Organization [facility] Address [address] [place] [address] Care Team Providers Name Role Phone Unavailable [...] Not on file Results Not on fileafter 06/12/2018
--- OUTSIDE RECORDS SUMMARY | 2019-06-13 12:27 | XMS REPORT | Clinical Summary ---
:1960 Author Organization [facility] Address [address] [place] [address] Care Team Providers Name Role Phone Asked, [...] a day before meals. predniSONE (DELTASONE) Take 5 mg by 0 [...] insulin lispro Inject 0-12 10 mL 12 (HumaLOG) 100 unit/mL Units under the 8 [...] Discontinued 5 mg tablet mouth daily. 019 predniSONE (DELTASONE) Take 4 tablets 120 tablet 2 5 mg tablet (20 mg total) 9 019 by mouth daily for 90 days. Active Problems Problem Noted Date PAF (paroxysmal [...] MD Onofre STUDY W ABLATION PULMONARY VEIN [17622 (CPT)] 02/13/2019 Anesthesia Event Procedural Peace Jones Cardiology MD Al 02/13/2019 - Hospital Encounter Cardiology Seth Saldaña PAF (paroxysmal 02/14/2019 MD Onofre atrial fibrillation) ([facility]) 10/05/2018 Anesthesia Event General Surgery Giuliano Herrera MD 10/05/2018 Surgery General Surgery Yo Khan R., MD EXPLORATORY, SEGMENTAL RESECTION OF SMALL BOWEL X4 WITH LYSIS OF ADHESION 10/05/2018 - Hospital Encounter General Surgery Anthony Lyn Bowel perforation 10/21/2018 MD Antoine ([facility]) Yo Khan MD 10/05/2018 Intake Access N/A 09/29/2018 Hospital Encounter Radiology 09/29/2018 Hospital Encounter Radiology 09/29/2018 Hospital Encounter Radiology 09/29/2018 Hospital Encounter Radiology 08/09/2018 Refill General Surgery Jackelin Nguyễn PA after 06/12/2018 Family History Medical History Relation Name Comments [...] 6:00 AM CDT Body Mass Index 50.18 02/13/2019 6:00 AM CDT Plan of Treatment Health Maintenance Due Date Last Done Comments COLONOSCOPY SCREENING 2011 SHINGLES VACCINES (#1) 2011 INFLUENZA VACCINE 06/22/2019 Procedures Procedure Name Priority Date/Time Associated Comments [...] by: Peace Jones MD Authorized by: Peace Joens MD Patient Location: OR Start Time: 02/13/2019 9:13 AM End Time: 02/13/2019 9:13 AM Staff: Anesthesiologist: Peace Jones MD Resident/CLAIMS ASSOCIATE/AA: Cora Austin CRNA Performed by: Anesthesiologist Pre-procedure: [...] the procedure well with no immediate complications [place] AN ELECTIVE ENDOTRACHEAL AIRWAY Routine 02/13/2019 9:12 [...] CDT POC GLUCOSE Routine 10/21/2018 7:43 PM [employer] POC GLUCOSE Routine 10/21/2018 5:16 PM [employer] POC GLUCOSE Routine 10/21/2018 11:53 AM [employer] POC GLUCOSE Routine 10/21/2018 8:01 AM [employer] POC GLUCOSE Routine 10/21/2018 4:52 AM [employer] POC GLUCOSE Routine 10/20/2018 11:01 PM [employer] POC GLUCOSE Routine 10/20/2018 7:23 PM [employer] POC GLUCOSE Routine 10/20/2018 3:48 PM [employer] POC GLUCOSE Routine 10/20/2018 12:06 PM [employer] POC GLUCOSE Routine 10/20/2018 7:17 AM [employer] POC GLUCOSE Routine 10/20/2018 3:39 AM [employer] ESTIMATED GFR Routine 10/20/2018 12:37 AM [employer] PHOSPHORUS LEVEL Routine 10/20/2018 12:37 AM [employer] MAGNESIUM LEVEL Routine 10/20/2018 12:37 AM [employer] BASIC METABOLIC PANEL Routine 10/20/2018 12:37 AM [employer] POC GLUCOSE Routine 10/20/2018 12:00 AM [employer] POC GLUCOSE Routine 10/19/2018 8:51 PM [employer] POC GLUCOSE Routine 10/19/2018 4:27 PM [employer] POC GLUCOSE Routine 10/19/2018 12:29 PM [employer] POC GLUCOSE Routine 10/19/2018 9:02 AM [employer] POC GLUCOSE Routine 10/19/2018 4:07 AM [employer] POC GLUCOSE Routine 10/19/2018 12:22 AM [employer] POC GLUCOSE Routine 10/18/2018 8:09 PM [employer] POC GLUCOSE Routine 10/18/2018 4:13 PM [employer] POC GLUCOSE Routine 10/18/2018 1:06 PM [employer] XR ABDOMEN 2 VW AP W UPRIGHT Routine 10/18/2018 10:00 AM [employer] Results for this AND/OR DECUBITUS procedure are in the results section. POC GLUCOSE Routine 10/18/2018 9:51 AM [employer] POC GLUCOSE Routine 10/18/2018 7:48 AM [employer] POC GLUCOSE Routine 10/18/2018 4:46 AM [employer] ESTIMATED GFR Routine 10/18/2018 4:00 AM [employer] PHOSPHORUS LEVEL Routine 10/18/2018 4:00 AM [employer] MAGNESIUM LEVEL Routine 10/18/2018 4:00 AM [employer] TRIGLYCERIDES Routine 10/18/2018 4:00 AM [employer] BASIC METABOLIC PANEL Routine 10/18/2018 4:00 AM [employer] POC GLUCOSE Routine 10/17/2018 11:43 PM [employer] POC GLUCOSE Routine 10/17/2018 8:04 PM [employer] POC GLUCOSE Routine 10/17/2018 5:08 PM [employer] POC GLUCOSE Routine 10/17/2018 12:11 PM [employer] PHOSPHORUS LEVEL Routine 10/17/2018 9:00 AM [employer]IST MAGNESIUM LEVEL Routine 10/17/2018 9:00 AM [employer] ESTIMATED GFR Routine 10/17/2018 9:00 AM [employer] BASIC METABOLIC PANEL Routine 10/17/2018 9:00 AM [employer] POC GLUCOSE Routine 10/17/2018 8:32 AM [employer] POC GLUCOSE Routine 10/17/2018 3:17 AM [employer] POC GLUCOSE Routine 10/16/2018 11:52 PM [employer] POC GLUCOSE Routine 10/16/2018 8:14 PM [employer] POC GLUCOSE Routine 10/16/2018 4:16 PM [employer] POC GLUCOSE Routine 10/16/2018 11:49 AM [employer] POC GLUCOSE Routine 10/16/2018 8:09 AM [employer] POC GLUCOSE Routine 10/16/2018 3:16 AM [employer] POC GLUCOSE Routine 10/16/2018 12:21 AM [employer] POC GLUCOSE Routine 10/15/2018 7:59 PM [employer] POC GLUCOSE Routine 10/15/2018 5:40 PM [employer] POC GLUCOSE Routine 10/15/2018 2:34 PM [employer] POC GLUCOSE Routine 10/15/2018 1:12 PM [employer] POC GLUCOSE Routine 10/15/2018 8:06 AM [employer] BASIC METABOLIC PANEL Routine 10/15/2018 4:00 AM [employer] ESTIMATED GFR Routine 10/15/2018 4:00 AM [employer] MAGNESIUM LEVEL Routine 10/15/2018 4:00 AM [employer] POC GLUCOSE Routine 10/15/2018 3:00 AM [employer] POC GLUCOSE Routine 10/15/2018 12:43 AM [employer] POC GLUCOSE Routine 10/14/2018 7:58 PM [employer] POC GLUCOSE Routine 10/14/2018 5:02 PM [employer] POC GLUCOSE Routine 10/14/2018 12:47 PM [employer] ESTIMATED GFR Routine 10/14/2018 7:45 AM [employer] BASIC METABOLIC PANEL Routine 10/14/2018 7:45 AM [employer] POC GLUCOSE Routine 10/14/2018 7:43 AM [employer] POC GLUCOSE Routine 10/14/2018 5:02 AM [employer] POC GLUCOSE Routine 10/14/2018 12:20 AM [employer] POC GLUCOSE Routine 10/13/2018 9:11 PM [employer] POC GLUCOSE Routine 10/13/2018 4:25 PM [employer] POC GLUCOSE Routine 10/13/2018 12:20 PM [employer] POC GLUCOSE Routine 10/13/2018 8:17 AM [employer] ESTIMATED GFR Routine 10/13/2018 6:19 AM [employer] BASIC METABOLIC PANEL Routine 10/13/2018 6:19 AM [employer] POC GLUCOSE Routine 10/13/2018 4:24 AM [employer] POC GLUCOSE Routine 10/12/2018 11:25 PM [employer] POC GLUCOSE Routine 10/12/2018 8:09 PM [employer] POC GLUCOSE Routine 10/12/2018 3:55 PM [employer] POC GLUCOSE Routine 10/12/2018 11:37 AM [employer] POC GLUCOSE Routine 10/12/2018 7:19 AM [employer] POC GLUCOSE Routine 10/12/2018 4:59 AM [employer] ESTIMATED GFR Routine 10/12/2018 3:58 AM [employer] PHOSPHORUS LEVEL Routine 10/12/2018 3:58 AM [employer]IST MAGNESIUM LEVEL Routine 10/12/2018 3:58 AM [employer] BASIC METABOLIC PANEL Routine 10/12/2018 3:58 AM [employer] POC GLUCOSE Routine 10/11/2018 11:17 PM [employer] POC GLUCOSE Routine 10/11/2018 7:28 PM [employer] POC GLUCOSE Routine 10/11/2018 3:14 PM [employer] POC GLUCOSE Routine 10/11/2018 11:39 AM [employer] ESTIMATED GFR Routine 10/11/2018 8:51 AM [employer]IST PHOSPHORUS LEVEL Routine 10/11/2018 8:51 AM [employer]IST MAGNESIUM LEVEL Routine 10/11/2018 8:51 AM [employer] BASIC METABOLIC PANEL Routine 10/11/2018 8:51 AM [employer] POC GLUCOSE Routine 10/11/2018 7:28 AM [employer] POC GLUCOSE Routine 10/11/2018 4:21 AM [employer] POC GLUCOSE Routine 10/10/2018 11:07 PM [employer] POC GLUCOSE Routine 10/10/2018 7:41 PM [employer] POC GLUCOSE Routine 10/10/2018 6:02 PM [employer] POC GLUCOSE Routine 10/10/2018 1:03 PM [employer] POC GLUCOSE Routine 10/10/2018 8:13 AM [employer] POC GLUCOSE Routine 10/10/2018 5:24 AM [employer]IST MAGNESIUM LEVEL Routine 10/10/2018 3:45 AM [employer] PHOSPHORUS LEVEL Routine 10/10/2018 3:45 AM [employer] ESTIMATED GFR Routine 10/10/2018 3:45 AM [employer] BASIC METABOLIC PANEL Routine 10/10/2018 3:45 AM [employer] HC COMPLETE BLD COUNT W/AUTO Routine 10/10/2018 3:45 AM [employer] Results for this DIFF procedure are in the results section. POC GLUCOSE Routine 10/09/2018 11:34 PM [employer] POC GLUCOSE Routine 10/09/2018 7:58 PM [employer] POC GLUCOSE Routine 10/09/2018 4:25 PM [employer] POC GLUCOSE Routine 10/09/2018 11:53 AM [employer] ECG 12-LEAD Routine 10/09/2018 8:17 AM [employer] HC COMPLETE BLD COUNT W/AUTO Routine 10/09/2018 7:58 AM [employer] Results for this DIFF procedure are in the results section. POC GLUCOSE Routine 10/09/2018 7:40 AM [employer] POC GLUCOSE Routine 10/09/2018 5:10 AM [employer] ESTIMATED GFR Routine 10/09/2018 3:46 AM [employer] BASIC METABOLIC PANEL Routine 10/09/2018 3:46 AM [employer]IST MAGNESIUM LEVEL Routine 10/09/2018 3:46 AM [employer] PHOSPHORUS LEVEL Routine 10/09/2018 3:46 AM [employer] POC GLUCOSE Routine 10/08/2018 11:31 PM [employer] POC GLUCOSE Routine 10/08/2018 8:38 PM [employer] HC COMPLETE BLD COUNT W/AUTO Routine 10/08/2018 6:00 PM [employer] Results for this DIFF procedure are in the results section. POC GLUCOSE Routine 10/08/2018 4:32 PM [employer] POC GLUCOSE Routine 10/08/2018 12:46 PM [employer] POC GLUCOSE Routine 10/08/2018 9:07 AM [employer] HC COMPLETE BLD COUNT W/AUTO Routine 10/08/2018 5:10 AM [employer] Results for this DIFF procedure are in the results section. POC GLUCOSE Routine 10/08/2018 4:44 AM [employer] ESTIMATED GFR Routine 10/08/2018 4:00 AM [employer] PHOSPHORUS LEVEL Routine 10/08/2018 4:00 AM [employer]IST MAGNESIUM LEVEL Routine 10/08/2018 4:00 AM [employer] BASIC METABOLIC PANEL Routine 10/08/2018 4:00 AM [employer] POC GLUCOSE Routine 10/07/2018 11:36 PM [employer] POC GLUCOSE Routine 10/07/2018 7:38 PM [employer] POC GLUCOSE Routine 10/07/2018 3:50 PM [employer] HC CATH DUAL LUMEN PICC Routine 10/07/2018 2:08 PM [employer] HC US GUIDED VASCULAR ACCESS Routine 10/07/2018 2:08 PM [employer] HC CVL PICC INSERT 5 YRS OR Routine 10/07/2018 2:08 PM [employer] Results for this > W/O IMG GUID procedure are in the results section. HEMOGLOBIN & HEMATOCRIT Routine 10/07/2018 1:25 PM [employer] POC GLUCOSE Routine 10/07/2018 11:03 AM [employer] POC GLUCOSE Routine 10/07/2018 7:09 AM [employer] XR CHEST 1 VW PORTABLE Routine 10/07/2018 6:41 AM [employer] POC GLUCOSE Routine 10/07/2018 4:38 AM [employer] ESTIMATED GFR Routine 10/07/2018 3:04 AM [employer] PHOSPHORUS LEVEL Routine 10/07/2018 3:04 AM [employer] MAGNESIUM LEVEL Routine 10/07/2018 3:04 AM [employer] LDH Routine 10/07/2018 3:04 AM [employer] HEPATIC FUNCTION PANEL Routine 10/07/2018 3:04 AM [employer] BASIC METABOLIC PANEL Routine 10/07/2018 3:04 AM [employer] PROTHROMBIN TIME WITH INR Routine 10/07/2018 2:15 AM [employer] HC COMPLETE BLD COUNT W/AUTO Routine 10/07/2018 2:15 AM [employer] Results for this DIFF procedure are in the results section. POC GLUCOSE Routine 10/07/2018 12:45 AM [employer] POC GLUCOSE Routine 10/06/2018 8:38 PM [employer] ESTIMATED GFR Routine 10/06/2018 3:37 PM [employer] IONIZED CALCIUM Routine 10/06/2018 3:37 PM [employer] PHOSPHORUS LEVEL Routine 10/06/2018 3:37 PM [employer] MAGNESIUM LEVEL Routine 10/06/2018 3:37 PM [employer] BASIC METABOLIC PANEL Routine 10/06/2018 3:37 PM [employer] POC GLUCOSE Routine 10/06/2018 2:38 PM [employer] XR CHEST 1 VW PORTABLE STAT 10/06/2018 7:30 AM [employer] IONIZED CALCIUM, ARTERIAL STAT 10/06/2018 6:50 AM [employer] PROTHROMBIN TIME WITH INR STAT 10/06/2018 6:50 AM [employer] PARTIAL THROMBOPLASTIN TIME STAT 10/06/2018 6:50 AM [employer] Results for this (PTT) procedure are in the results section. HC COMPLETE BLD COUNT W/AUTO STAT 10/06/2018 6:50 AM [employer] Results for this DIFF procedure are in the results section. ARTERIAL BLOOD GAS STAT 10/06/2018 6:50 AM [employer] COPPER LEVEL, SERUM Routine 10/06/2018 6:50 AM [employer] ZINC LEVEL, SERUM Routine 10/06/2018 6:50 AM [employer] POC GLUCOSE Routine 10/06/2018 6:49 AM [employer] ESTIMATED GFR STAT 10/06/2018 6:27 AM [employer] LACTIC ACID LEVEL STAT 10/06/2018 6:27 AM [employer] PHOSPHORUS LEVEL STAT 10/06/2018 6:27 AM [employer]IST MAGNESIUM LEVEL STAT 10/06/2018 6:27 AM [employer] COMPREHENSIVE METABOLIC STAT 10/06/2018 6:27 AM [employer] Results for this PANEL procedure are in the results section. PREALBUMIN LEVEL Routine 10/06/2018 6:21 AM [employer] GLUCOSE LEVEL, SYRINGE Routine 10/06/2018 4:53 AM [employer] HEMOGLOBIN, SYRINGE Routine 10/06/2018 4:53 AM [employer] POTASSIUM, SYRINGE Routine 10/06/2018 4:53 AM [employer] SODIUM LEVEL, SYRINGE Routine 10/06/2018 4:53 AM [employer] IONIZED CALCIUM, ARTERIAL Routine 10/06/2018 4:53 AM [employer] ARTERIAL BLOOD GAS, Routine 10/06/2018 4:53 AM [employer] Results for this CORRECTED procedure are in the results section. LACTIC ACID, SYRINGE Routine 10/06/2018 2:10 AM [employer]IST MAGNESIUM LEVEL Routine 10/06/2018 2:10 AM [employer] GLUCOSE LEVEL, SYRINGE Routine 10/06/2018 2:10 AM [employer]IST HEMOGLOBIN, SYRINGE Routine 10/06/2018 2:10 AM [employer]IST IONIZED CALCIUM, ARTERIAL Routine 10/06/2018 2:10 AM [employer] POTASSIUM, SYRINGE Routine 10/06/2018 2:10 AM [employer]IST SODIUM LEVEL, SYRINGE Routine 10/06/2018 2:10 AM [employer] ARTERIAL BLOOD GAS, Routine 10/06/2018 2:10 AM [employer] Results for this CORRECTED procedure are in the results section. CENTRAL LINE Routine 10/06/2018 1:53 AM [employer] Procedure Note - Yuni Ham MD - 10/06/2018 1:53 AM [employer] Central line Performed by: Giuliano Herrera MD [...] complications ARTERIAL LINE Routine 10/06/2018 1:29 AM [employer] Procedure Note - Giuliano Herrera MD - 10/06/2018 1:29 AM [employer] Arterial line Performed by: Giuliano Herrera MD [...] complications ANESTHESIA INTUBATION Routine 10/06/2018 1:11 AM [employer] Procedure Note - Giuliano Herrera MD - 10/06/2018 1:11 AM [employer] ANESTHESIA INTUBATION Date/Time: 10/05/2018 11:43 PM Performed [...] PM Results for this MICROSCOPY, WITH REFLEX [employer] procedure are in TO CULTURE the results section. GRAM STAIN Routine 10/05/2018 10:48 PM Results for this [employer] procedure are in the results section. URINE CULTURE Routine 10/05/2018 10:48 PM Results for this [employer] procedure are in the results section. ANTI XA RIVAROXABAN STAT 10/05/2018 9:04 PM Results for this [employer] procedure are in the results section. ARTERIAL BLOOD GAS STAT 10/05/2018 9:04 PM Results for this [employer] procedure are in the results section. PROTHROMBIN TIME WITH STAT 10/05/2018 9:04 PM Results for this INR [employer] procedure are in the results section. PARTIAL THROMBOPLASTIN STAT 10/05/2018 9:04 PM Results for this TIME (PTT) [employer] procedure are in the results section. XR CHEST 1 VW PORTABLE STAT 10/05/2018 8:49 PM Results for this [employer] procedure are in the results section. XR ABDOMEN 1 VW STAT 10/05/2018 8:49 PM Results for this PORTABLE [employer] procedure are in the results section. HC COMPLETE BLD COUNT STAT 10/05/2018 8:30 PM Results for this W/AUTO DIFF [employer] procedure are in the results section. ECG 12-LEAD STAT 10/05/2018 8:23 PM Results for this [employer] procedure are in the results section. POC GLUCOSE Routine 10/05/2018 8:14 PM Results for this [employer] procedure are in the results section. PREPARE RBC STAT 10/05/2018 7:46 PM Results for this [employer] procedure are in the results section. PREPARE FRESH FROZEN STAT 10/05/2018 7:46 PM Results for this PLASMA [employer] procedure are in the results section. ESTIMATED GFR STAT 10/05/2018 7:46 PM Results for this [employer] procedure are in the results section. TYPE AND SCREEN STAT 10/05/2018 7:46 PM Results for this [employer] procedure are in the results section. PHOSPHORUS LEVEL STAT 10/05/2018 7:46 PM Results for this [employer] procedure are in the results section. MAGNESIUM LEVEL STAT 10/05/2018 7:46 PM Results for this [employer] procedure are in the results section. LACTIC ACID LEVEL STAT 10/05/2018 7:46 PM Results for this [employer] procedure are in the results section. BASIC METABOLIC PANEL STAT 10/05/2018 7:46 PM Results for this [employer] procedure are in the results section. LAPAROTOMY, EXPLORATORY 10/05/2018 7:45 PM small bowel [employer] obstruction, perforated bowel CT ABD/PELVIC EXTERNAL Routine 10/05/2018 12:23 PM Results for this STUDY [employer] procedure are in the results section. SURGICAL PATHOLOGY Routine 10/05/2018 8:36 AM Results for this REQUEST [employer] procedure are in the results section. after 06/12/2018 Results Prothrombin time with INR (02/14/2019 4:18 AM CDT)Only the most recent of4 resultswithin the time period is included. Prothrombin time 22.3 (H) 11.5 - 14.5 [facility] INR 2.0 [place] Comment: [facility] International Normalized Ratio (INR) is a therapeutic HOSPITAL monitoring tool for patients who are stable on oral anticoagulant therapy. An INR of 2.0-3.0 is suggested for deep vein thrombosis/pulmonary embolism. Specimen Blood Performing Organization Address City/State/Zipcode Phone Number [facility] DEPARTMENT OF PATHOLOGY AND [address] [place] [id number] [facility] [address] [address] ECG 12 lead (02/14/2019 4:17 AM CDT)Only the most recent of4 resultswithin the time period is included. Ventricular rate 74 [facility] Atrial rate 74 [facility] NV interval 162 [facility] QRSD interval 92 [...] significan [facility] MUSE t change was found- Specimen Narrative Performed At Performing Organization Address City/State/Zipcode Phone Number [facility] MUSE [address] [place] [address] CBC with platelet and differential (02/14/2019 4:15 AM CDT)Only the most recent of8 resultswithin the time period is included. WBC 12.99 (H) 4.50 - 11.00 [facility] k/uL HOSPITAL RBC 3.82 (L) 4.40 - 6.00 [facility] m/uL [facility] HGB 11.9 (L) 14.0 - 18.0 [facility] g/dL [facility] HCT 39.0 (L) 41.0 - 51.0 % [facility] MCV 102.1 (H) 82.0 - 100.0 [facility] MCH 31.2 27.0 - 34.0 pg [facility] MCHC 30.5 (L) 31.0 - 37.0 [facility] gdL [facility] RDW - SD 61.3 (H) 37.0 - 55.0 fL [facility] MPV 10.3 8.8 - 13.2 fL [facility] Platelet count 262 150 - 400 k/uL [facility] Nucleated RBC 0.00 /100 WBC [facility] Neutrophils 65.2 39.0 - 69.0 % [facility] Lymphocytes 24.0 (L) 25.0 - 45.0 % [facility] Monocytes 9.0 0.0 - 10.0 % [facility] Eosinophils 0.1 0.0 - 5.0 % [facility] Basophils 0.5 0.0 - 1.0 % [facility] Immature granulocytes 1.2 0.0 - 1.0 % [facility] (H)Comment: [facility] "Immature granulocytes" (promyelocytes , myelocytes, metamyelocytes ) Specimen Blood Performing Organization Address City/[facility]/Zipcode Phone Number [facility] DEPARTMENT OF PATHOLOGY AND [address] [place] [address] [facility]IC[facility] [place] [phone] [place] [address] Estimated GFR (02/14/2019 4:00 AM CDT)Only the most recent of17 resultswithin the time period is included. Pathologist [facility] Estimated GFR 65 mL/min/1.73 [facility] Comment: HOSPITAL CatergoryUnitsInterpretation G1 >=90 Normal or high G2 60-89Mildly decreased [id number] to moderately decreased [id number] to severely decreased G4 15-29Severely decreased G5 <15Kidney failure The eGFR was calculated using the Chronic Kidney Disease Epidemiology Collaboration (CKD-EPI) equation. Interpretation is based on recommendations of the National Kidney Foundation-Kidney Disease Outcomes Quality Initiative (NKF-KDOQI) published in 2014. Specimen Plasma specimen Performing Organization Address City/[facility] Phone Number [facility] DEPARTMENT OF PATHOLOGY AND [address] [place], [place] [id number] Basic metabolic panel (02/14/2019 4:00 AM CDT)Only the most recent of16 resultswithin the time period is included. Sodium 139 135 - 148 mEq/L [facility] Potassium 3.9 3.5 - 5.0 mEq/L [facility] Chloride 101 98 - 112 mEq/L [facility] CO2 28 24 - 31 mEq/L [facility] Anion gap 10@ANIO 7 - 15 mEq/L [facility] BUN 24 (H) 6 - 20 mg/dL [facility] Creatinine 1.22 (H) 0.70 - 1.20 mg/dL [facility] Glucose 169 (H) 65 - 99 mg/dL [facility] Calcium 8.6 8.3 - 10.2 mg/dL [facility] Specimen Plasma specimen Performing Organization Address [facility] [place] [facility] DEPARTMENT OF PATHOLOGY AND [address] [place] [id number] Magnesium level (02/13/2019 3:59 PM CDT)Only the most recent of15 resultswithin the time period is included. Magnesium 1.8 1.6 - 2.6 mg/dL [facility] Specimen Plasma specimen Performing Organization Address [facility] Phone [facility] DEPARTMENT OF PATHOLOGY AND [address] [place], [place] [id number] [address] [address] Cv electrophysiology procedure (02/13/2019 12:44 PM CDT) Specimen Narrative Performed At [employer]: JANNETTE Saldaña MD COMPLICATIONS: None. ESTIMATED BLOOD [...] City/State/Zipcode Phone Number [facility] [address] [place] [address] Activated clotting time (02/13/2019 12:32 PM CDT)Only the most recent of7 resultswithin the time period is included. Activated clotting 160 (H) 96 - 152 sec [facility] time Comment: HOSPITAL Meter ID: [id number] [employer] Att[employer] Supervisor: Norman Shepherd Specimen Performing Organization Address City/[facility]/Zipcode Phone Number [facility] DEPARTMENT OF PATHOLOGY AND [address] [place] [phone] [place] [phone] ECG Pre/Post Op (02/13/2019 6:53 AM CDT) Ventricular rate 79 [facility] Atrial rate 79 [facility] NV interval 152 [facility] QRSD interval 92 [facility] QT interval 410 [facility] QTC interval 470 [facility] P axis 1 25 [facility] QRS axis 1 70 [facility] M[facility] T wave axis 47 [facility] MUSE EKG impression Normal sinus rhythm-Low voltage QRS-Incomplete right bundle branch block-Cannot rule out Anteroseptal infarct (cited on or before 2016)-Abnormal ECG-In automated comparison with ECG of 09-OCT-2018 08:17,-No significant change was [facility] MUSE found- Specimen Narrative Performed At Performing Organization Address [facility] Phone Number [facility] MUSE [address] [place] [address] Type and screen (02/13/2019 6:15 AM CDT)Only the most recent of2 resultswithin the time period is included. ABO grouping A [facility] Rh type NEG [facility] Antibody screen (gel) NEG [facility] Specimen Blood Performing Organization Address City/[facility]/Zipcode Phone Number [facility] DEPARTMENT OF PATHOLOGY AND [address] [place] [address] [address] POC glucose (10/21/2018 7:43 PM PLANT [employer]ED[employer] SCIENTIST)Only the most recent of96 resultswithin the time period is included. POC glucose 133 (H) 65 - 99 mg/dL [facility] Comment: HOSPITAL [facility] Notified RN Meter ID: [id number] [employer] Att[employer] Supervisor: Dileepjerryjacqueline Vanda Fontanez Specimen Performing Organization Address City/[facility]/Zipcode Phone Number [facility] DEPARTMENT OF PATHOLOGY AND [address] [place] [address] [address] Phosphorus level (10/20/2018 12:37 AM PLANT [employer]EDER SCIENTIST)Only the most recent of12 resultswithin the time period is included. Phosphorus 2.7 2.4 - 4.5 mg/dL [facility] Specimen Plasma specimen Performing Organization Address City/[facility]/Zipcode Phone Number [facility] DEPARTMENT OF PATHOLOGY AND [address] [place] [address] [address] XR Abdomen 2 Vw Ap W Upright And/Or Decubitus (10/18/2018 10:00 AM PLANT [employer] SCIENTIST) Specimen Narrative Performed At EXAMINATION: XR ABDOMEN 2 VW AP W UPRIGHT AND OR [facility]UBITUS [facility] INDICATION: nausea vomiting COMPARISON: 10/07/2018 IMPRESSION: Moderate diffuse gaseous distention of loops of small and large bowel, compatible with adynamic ileus. There are also a few gas fluid levels in central loops of small bowel. Staple line overlies left upper quadrant. Multiple surgical donavon over the central and right abdomen. Numerous remote left greater than right rib fractures. Spondylosis. Bilateral hip arthroplasties. [facility]-[id number] Procedure Note Hm Interface, Radiology Results Incoming - 10/18/2018 11:32 AM PLANT [employer] SCIENTIST EXAMINATION: XR ABDOMEN 2 VW AP W [...] right rib fractures. Spondylosis. Bilateral hip arthroplasties. [facility]-[id number] Performing Organization Address City/State/Zipcode Phone Number [facility] [address] [place] [address] Triglycerides (10/18/2018 4:00 AM PLANT [employer]ED[employer] SCIENTIST) Triglycerides 227 (H) <150 mg/dL [facility] Specimen Plasma specimen Performing Organization Address City/State/Zipcode Phone Number [facility] DEPARTMENT OF PATHOLOGY AND [address] [place] [address] [address] [address] [place] [address] Unsuccessful Attempt - PICC (10/07/2018 2:08 PM PLANT [employer] SCIENTIST) Narrative Performed At Felice Keller RN 10/07/20182:13 PM Unsuccessful Attempt - PICC Date/Time: 10/07/2018 2:08 PM Performed by: Duy Vaughn Authorized by: Yo Khan MD Consent: Consent obtained:Verbal Consent given by:Patient Risks discussed: arterial puncture, incorrect placement, bleeding, infection, superficial thrombus and deep vein thrombus Dearing protocol: Procedure explained and questions answered to [...] placement. Hemoglobin & hematocrit (10/07/2018 1:25 PM PL[employer] SCIENTIST) HGB 10.2 (L) 14.0 - 18.0 g/dL [facility] HCT 34.0 (L) 41.0 - 51.0 % [facility] Specimen Blood Performing Organization Address City/State/Zipcode Phone Number [facility] DEPARTMENT OF PATHOLOGY AND [address] [place] [phone] [place] [address] XR Chest 1 Vw Portable (10/07/2018 6:41 AM PLANT [employer] SCIENTIST)Only the most recent of3 resultswithin the time period is included. Specimen Narrative Performed At EXAMINATION:XR CHEST 1 VW PORTABLE [facility] CLINICAL HISTORY:Ventilator Patient COMPARISON:October 06 IMPRESSION: October 06 1. Central line and visualized feeding tube are stable. 2. Pulmonary volumes remain diminished. Pulmonary congestion is unchanged. Overall appearance of the chest is similar. Procedure Note Interface, Radiology Results Incoming - 10/07/2018 7:31 AM PLANT [employer]ED[employer] SCIENTIST EXAMINATION: XR CHEST 1 VW PORTABLE CLINICAL HISTORY: Ventilator Patient COMPARISON: October 06 IMPRESSION: October 06 1. Central line and visualized feeding tube are stable. 2. Pulmonary volumes remain diminished. Pulmonary congestion is unchanged. Overall appearance of the chest is similar. Performing Organization Address City/[facility]/Zipcode Phone Number [facility] [address] [place] [address] LDH (10/07/2018 3:04 AM PLANT [employer]EDER SCIENTIST) LDH 147 87 - 225 U/L [facility] Specimen Plasma specimen Performing Organization Address City/[facility] Cent[facility]ode Phone Number [facility] DEPARTMENT OF PATHOLOGY AND [address] [place] [address] [address] Hepatic function panel (10/07/2018 3:04 AM PLANT [employer] SCIENTIST) Albumin 2.8 (L) 3.5 - 5.0 g/dL [facility] Total bilirubin 0.3 0.0 - 1.2 [facility] mg/dL [facility] Bilirubin direct <0.2 0.0 - 0.3 [facility] mg/dL HOSPITAL Alkaline phosphatase 75 40 - 129 U/L [facility] Protein 5.6 (L) 6.3 - 8.3 g/dL [facility] Comment: HOSPITAL 4.6-7.0 g/dL 1 week 4.4-7.6 g/dL 7 months-1year5.1-7.3 g/dL 1-2 years5.6-7.5 g/dL >3 years6.0-8.0 g/dL 18-150 6.3-8.3 g/dL ALT 12 5 - 50 U/L [facility] AST 12 10 - 50 U/L [facility] Specimen Plasma specimen Performing Organization Address City/State/Zipcode Phone Number [facility] DEPARTMENT OF PATHOLOGY AND [address] [place] [address] Ionized calcium (10/06/2018 3:37 PM PLANT [employer]EDER SCIENTIST) pH 7.37 [facility] Ionized calcium 1.15 1.11 - 1.32 mmol/L [facility] Specimen Plasma specimen Performing Organization Address City/[facility]ode Phone Number [facility] DEPARTMENT OF PATHOLOGY AND [address] [place] [address] Ionized calcium, arterial (10/06/2018 6:50 AM PLANT [employer] SCIENTIST)Only the most recent of3 resultswithin the time period is included. Ionized calcium, 1.08 (L) 1.11 - 1.32 [facility] arterial mmol/L HOSPITAL Specimen Blood Performing Organization Address [facility] Centercowa Phone Number [facility] DEPARTMENT OF PATHOLOGY AND [address] [place] [address] Copper level, serum (10/06/2018 6:50 AM PLANT BREEDER SCIENTIST) Copper 89 70 - 140 ug/dL [facility] Comment: INTERPRETIVE INFORMATION: Copper, Serum [...] or malabsorption. See Compliance Statement B at [email or web address] Performed by [employer], [address] [place] [id number] www.[employer], Solitario Cardona MD - Lab. Director Specimen Blood Performing Organization Address City/[facility]/Zipcode Phone Number [facility] [address] [place] [address] [facility] [address] [place] [address] Zinc level, serum (10/06/2018 6:50 AM PLANT BREEDER SCIENTIST) [facility] Zinc 25 (L) 60 - 120 ug/dL [...] absorption. Test developed and characteristics determined by [employer]. See Compliance Statement B: [employer]/CS Performed by [employer], [address] [place] [id number] www.[employer], Solitario Cardona MD - Lab. Director Specimen Blood Performing Organization Address [facility]owa Phone Number [facility] [address] [place] [address] [facility] [address] [place] [address] Partial thromboplastin time, activated (10/06/2018 6:50 AM PLANT [employer]EDER SCIENTIST)Only the most recent of2 resultswithin the time period is included. [facility] PTT 31.5 23.0 - 36.0 [facility] Comment: [facility] PTT therapeutic range for unfractionated heparin is 61.0-112.0 seconds which corresponds to Anti-Xa 0.3-0.7 U/ml. Specimen Blood Performing Organization Address [facility] Centercode Phone Number [facility] DEPARTMENT OF PATHOLOGY AND [address] [place] [address] [facility] [address] [address] Arterial blood gas (10/06/2018 6:50 AM PLANT [employer]ER SCIENTIST)Only the most recent of2 resultswithin the time period is included. [facility] pH, arterial 7.30 (L) 7.35 - 7.45 [facility] pCO2, arterial 43 35 - 45 mmHg [facility] pO2, arterial 174 (H) 80 - 90 mmHg [facility] Bicarbonate, 20.4 (L) 21.0 - 28.0 [facility] mmol/L [facility] Base excess, -5 (L) -2 - 2 mEq/L [facility] O2 saturation, 99 95 - 100 % [facility] Specimen Blood Performing Organization Address City/[facility]/Zipcode Phone Number [facility] DEPARTMENT OF PATHOLOGY AND [address] [place] [address] [address] Lactic acid level (10/06/2018 6:27 AM PLANT BREEDER SCIENTIST)Only the most recent of2 resultswithin the time period is included. Lactic acid 2.3 (H) 0.5 - 2.2 mmol/L [facility] Specimen Plasma specimen Performing Organization Address City/[facility]/Zipcode Phone Number [facility] DEPARTMENT OF PATHOLOGY AND [address] [place] [address] [address] Comprehensive metabolic panel (10/06/2018 6:27 AM PLANT BREEDER SCIENTIST) Pathologist [facility] Sodium 141 135 - 148 [facility] mEq/L [facility] Potassium 3.3 (L) 3.5 - 5.0 [facility] mEq/L [facility] Chloride 105 98 - 112 mEq/L [facility] CO2 21 (L) 24 - 31 mEq/L [facility] Anion gap 15@ANIO 7 - 15 mEq/L [facility] BUN 19 6 - 20 mg/dL [facility] Creatinine 0.78 0.70 - 1.20 [facility] mg/dL [facility] Glucose 181 (H) 65 - 99 mg/dL [facility] Calcium 8.2 (L) 8.3 - 10.2 [facility] mg/dL [facility]OSPITAL Protein 5.2 (L) 6.3 - 8.3 g/dL [facility] Comment: HOSPITAL [place] 4.6-7.0 g/dL 1 week 4.4-7.6 g/dL 7 months-1year5.1-7.3 g/dL 1-2 years5.6-7.5 g/dL >3 years6.0-8.0 g/dL 18-150 6.3-8.3 g/dL Albumin 3.0 (L) 3.5 - 5.0 g/dL [facility] A/G ratio 1.4 0.7 - 3.8 [facility] Alkaline phosphatase 68 40 - 129 U/L [facility] AST 12 10 - 50 U/L [facility] ALT 9 5 - 50 U/L [facility] Total bilirubin 0.6 0.0 - 1.2 [facility] mg/dL HOSPITAL Specimen Plasma specimen Performing Organization Address City/[facility] Phone Number [facility] DEPARTMENT OF PATHOLOGY AND [address] [place] [phone] [place] [phone] Prealbumin level (10/06/2018 6:21 AM PLANT BREEDER SCIENTIST) Prealbumin 14 (L) 16 - 32 mg/dL [facility] Specimen Serum Performing Organization Address [facility] Phone Number [facility] DEPARTMENT OF PATHOLOGY AND [address] [place] [phone] Sodium level, syringe (10/06/2018 4:53 AM PLANT BREEDER SCIENTIST)Only the most recent of2 resultswithin the time period is included. Sodium, syringe 137 135 - 148 mEq/L [facility] Specimen Blood Performing Organization Address [facility] Phone Number [facility] DEPARTMENT OF PATHOLOGY AND [address] [place] [phone] [place] [address] Potassium, syringe (10/06/2018 4:53 AM PLANT BREEDER SCIENTIST)Only the most recent of2 resultswithin the time period is included. Potassium, syringe 3.2 (L) 3.5 - 5.0 mEq/L [facility] Specimen Blood Performing Organization Address [facility] Phone Number [facility] DEPARTMENT OF PATHOLOGY AND [address] [place] [phone] [place] [address] Hemoglobin, syringe (10/06/2018 4:53 AM PLANT BREEDER SCIENTIST)Only the most recent of2 resultswithin the time period is included. Hemoglobin, syringe 11.4 (L) 14.0 - 18.0 g/dL [facility] Specimen Blood Performing Organization Address [facility]ode Phone Number [facility] DEPARTMENT OF PATHOLOGY AND [address] [place] [phone] Glucose level, syringe (10/06/2018 4:53 AM PLANT BREEDER SCIENTIST)Only the most recent of2 resultswithin the time period is included. Glucose, syringe 189 (H) 65 - 99 mg/dL [facility] Specimen Blood Performing Organization Address City/[facility]/Zipcode Phone Number [facility] DEPARTMENT OF PATHOLOGY AND [address] [place] [phone] Arterial blood gas, corrected (10/06/2018 4:53 AM PLANT BREEDER SCIENTIST)Only the most recent of2 resultswithin the time period is included. pH, arterial 7.32 (L) 7.35 - 7.45 [facility] pCO2, arterial 41 35 - 45 mmHg [facility] pO2, arterial 135 (H) 80 - 90 mmHg [facility] Temperature, Celsius 36.1 Degrees C [facility] O2 saturation, 99 95 - 100 % [facility] arterial HOSPITAL pH, arterial 7.33 [facility]PITAL pCO2, arterial 40 mmHg [facility]PITAL pO2, arterial 130 mmHg [facility] HOSPITAL Base excess, arterial -5 (L) -2 - 2 mEq/L [facility] Specimen Blood Performing Organization Address City/[facility] Phone Number [facility] DEPARTMENT OF PATHOLOGY AND [address] [place] [address] Lactic acid, syringe (10/06/2018 2:10 AM PLANT BREEDER SCIENTIST) Lactic acid, syringe 1.5 0.5 - 2.2 mmol/L [facility] Specimen Blood Performing Organization Address City/State/Zipcode Phone Number [facility] DEPARTMENT OF PATHOLOGY AND [address] [place] [address] Urinalysis screen and microscopy, with reflex to culture (10/05/2018 10:48 PM PLANT BREEDER SCIENTIST) Specimen site Random void [facility] Color, UA Yellow [facility] Appearance, UA Hazy [facility] Specific gravity, 1.030 1.001 - 1.035 [facility] pH, UA 5.0 5.0 - 8.5 [facility] Protein, UA 1+ (A) Negative [facility] Glucose, UA Negative Negative [facility] Ketones, UA Negative Negative [facility] Bilirubin, UA Negative Negative [facility] Blood, UA Large (A) Negative [facility] Nitrite, UA Negative Negative [facility] Urobilinogen, UA SEE COMMENT <2.0 [facility] Comment: HOSPITAL Footnote--------- UNABLE TO REPORT Leukocyte Moderate (A) Negative [facility] esterase, HOSPITAL WBC, UA 92 (H) 0 - 1 /HPF [facility] RBC, UA 80 (H) 0 - 5 /HPF [facility] Bacteria, UA None seen None seen [facility] Yeast, UA Moderate (A) [facility] Yeast with Few (A) [facility] pseudohyphae, HOSPITAL Specimen Urine Performing Organization Address [facility] Phone Number [facility] DEPARTMENT OF PATHOLOGY AND [address] [place] [phone] Gram stain (10/05/2018 10:48 PM PLANT BREEDER SCIENTIST) Gram stain result Moderate WBC's [facility] Comment: Specimen Information Specimen Source: Urine Specimen Site: Random void Specimen Urine - Random void Performing Organization Address [facility] Phone Number [facility] DEPARTMENT OF PATHOLOGY AND [address] [place] [address] Urine culture (10/05/2018 10:48 PM PLANT BREEDER SCIENTIST) Urine culture Malgorzata albicans [facility] isolate 10-5 cfu/ml HOSPITAL The performance characteristics of this assay on this isolate were validated by the Microbiology Laboratory at [facility].This source has not been approved by the [...] Urine - Random void Performing Organization Address City/[facility] Phone Number [facility] DEPARTMENT OF PATHOLOGY AND [address] [place] [phone] Anti Xa Rivaroxaban (10/05/2018 9:04 PM PLANT BREEDER SCIENTIST) Anti Xa, 40 ng/mL [place] Rivaroxaban Comment: [facility] This test was developed and its performance characteristics HOSPITAL determined by [facility] in a manner [...] ___LACID results called to and read back [facility] DEPARTMENT OF PATHOLOGY AND GENOMIC by KALEB GIRON/ESTER(name/location) 10/05/2018 2106___ (date/time) by FUAD__. PER NAVYA FROM PHARMACY ADD ON RIVXA 10/05/201821:33 Performing Organization Address City/State/Zipcode Phone Number [facility] DEPARTMENT OF PATHOLOGY AND [address] [place], [place] [phone] XR Abdomen 1 Vw Portable (10/05/2018 8:49 PM PLANT BREEDER SCIENTIST) Specimen Addenda Addendum by Jaiden Zelaya MD on [...] Patient is status post bilateral hip arthroplasty. [facility]-[id number] Procedure Note Hm Interface, Radiology Results Incoming - 10/05/2018 9:05 PM PLANT BREEDER SCIENTIST EXAMINATION: XR ABDOMEN 1 VW PORTABLE CLINICAL [...] Patient is status post bilateral hip arthroplasty. [facility]-[id number] Performing Organization Address [facility] Phone Number [facility] [address] [place] [address] Prepare fresh frozen plasma (10/05/2018 7:46 PM PLANT BREEDER SCIENTIST) Product name Thawed Plasma [facility] Unit number [id number] [facility] Product code [id number] [facility] Dispense status Returned to BB not [facility] transfused HOSPITAL Blood expiration [id number] [facility] Blood type code 6200 [facility] Blood type A POSITIVE [facility] Product name Thawed Plasma [facility] Unit number [id number] [facility] Product code [id number] [facility] Dispense status Returned to BB not [facility] transfused HOSPITAL Blood expiration [id number] [facility] Blood type code 0600 [facility] Blood type A NEGATIVE [facility] Product name Thawed Plasma [facility] Unit number [id number] [facility] Product code [id number] [facility] Dispense status Returned to BB not [facility] transfused HOSPITAL Blood expiration [id number] [facility] Blood type code 0600 [facility] Blood type A NEGATIVE [facility] Product name Thawed Plasma [facility] Unit number [id number] [facility] Product code [id number] [facility] Dispense status Returned to BB not [facility] transfused HOSPITAL Blood expiration [id number] [facility] Blood type code 0600 [facility] Blood type A NEGATIVE [facility] Specimen Performing Organization Address [facility] Cent[facility]ode Phone Number [facility] DEPARTMENT OF PATHOLOGY AND [address] [place] [address] [address] [address] Prepare RBC (10/05/2018 7:46 PM PLANT BREEDER SCIENTIST) Product name Apheresis Red Cell [facility] AS3 #2 LR HOSPITAL Unit number [id number] [facility] Product code [id number] [facility] Dispense status Returned to BB not [place] [facility] transfused [facility]OSPITAL Blood expiration [id number] [facility] Blood type code 0600 [facility] Blood type A NEGATIVE [facility] Product name Apheresis Red Cell [facility] AS3 #1 LR [facility] Unit number [id number] [facility] Product code [id number] [facility] Dispense status Returned to BB not [place] [facility] transfused [facility]ITAL Blood expiration [id number] [facility] Blood type code 0600 [facility] Blood type A NEGATIVE [facility] Product name Apheresis Red Cell [facility] AS3 #2 LR [facility] Unit number [id number] [facility] Product code [id number] [facility] Dispense status Returned to BB not [place] [facility] transfused [facility]OSPITAL Blood expiration [id number] [facility] Blood type code 0600 [facility] Blood type A NEGATIVE [facility] Product name [facility] Unit number [id number] [facility] Product code [id number] [facility] Dispense status Returned to BB not [facility] Blood expiration [id number] [facility] Blood type code 0600 [facility] Blood type A NEGATIVE [facility] Specimen Performing Organization Address City/State/Zipcode Phone Number [facility] DEPARTMENT OF PATHOLOGY AND [address] [place] [id number] GENOMIC MEDICINE [address] [address] [place] Abd/Pelvic External Study (10/05/2018 12:23 PM PLANT [employer] SCIENTIST) Specimen Narrative Performed At This exam was not acquired at a [facility] facility and has not been [facility] interpreted by a [facility] Provider.The exam was imported into our imaging system for comparisons purposes. Performing Organization Address City/[facility]/Zipcode Phone Number [address] [address] Surgical pathology request (10/05/2018 8:36 AM PLANT BRE[employer]ER SCIENTIST) [facility] DEPARTMENT OF PATHOLOGY AND GENOMIC MEDICINE Surgical pathology See link below [facility] DEPARTMENT OF report for PDF Lab PATHOLOGY AND Report GENOMIC MEDICINE Result status This is Final [facility] DEPARTMENT OF Report for PATHOLOGY AND [id number] GENOMIC MEDICINE Specimen Performing Organization Address City/State/Zipcode Phone Number [facility] DEPARTMENT OF PATHOLOGY AND [address] [place] [address] GENOMIC MEDICINE after 06/12/2018 Insurance Payer Benefit Plan / Subscriber ID Effective Dates Phone Address Type Group MEDICARE MEDICARE PART A xxxxxxxxxxx 2015-Present [place], [place] Medicare AND B CIGNA CIGNA OPEN xxxxxxxxxxx 2018-Present [facility] ACCESS/NETWORK ([place]) [address] [place] [phone] Advance Directives Patient has advance care planning documents on file. For more information, please contact:Fidencio Garnett[address] [place] [address]
--- OUTSIDE RECORDS SUMMARY | 2019-06-13 12:27 | XMS REPORT | Continuity of Care Document ---
:1960 Author Organization [employer] Care Team Providers Name Role Phone [employer] Unavailable Unavailable Problems Problem Status Onset Classification Date Comments Source Date Reported UTI Active Finding 02/16/[address] [facility] [place] Abdominal wall Active Finding 02/16/[address] [facility] abscess 018 [facility] [place] Hypokalemia Active Finding 02/16/[address] [facility] [facility] [place] Chronic Active Finding 02/16/[address] [facility] anticoagulation 017 [facility] [place] Ventral hernia Active Finding 02/16/[address] [facility] [address] [facility] [place] Morbid obesity Active Finding 02/16/[address] [facility] [address] [facility] [place] Chronic respiratory Active Finding 02/16/[address] [facility] failure [facility]17 [facility] [place] Paroxysmal atrial Active Finding 02/16/[address] [facility] [address] fibrillation [facility]17 [facility] [place] Obesity Active Finding 02/16/[address] [facility] hypoventilation 017 [facility] syndrome [place] Leg edema Active Finding 02/16/[address] [facility] [address] [facility] [place] Crohn's disease Active Finding 02/16/[address] [facility] [address] [facility] [place] Cellulitis of both Active Finding 02/16/[address] [facility] lower extremities 015 [facility] [place] GERD Active Finding 02/16/[address] [facility] [facility] [place] Chronic anemia Active Finding 02/16/[address] [facility] [address] [facility] [place] Hypomagnesemia Active Finding 02/16/[address] [facility] [facility] [place] Cellulitis Active Finding 02/16/[address] [facility] [address] [facility] [place] Encounter for Active Finding 02/16/[address] [facility] rehabilitation 015 [facility] [place] Anemia of chronic Active Finding 02/16/[address] [facility] disease 015 [facility] [place] Sinus tachycardia Active Finding 02/16/[address] [facility] [address] [facility] [place] Hypertension Active Finding 02/16/[address] [facility] [facility] [place] Rheumatoid arthritis Active Finding 02/16/[address] [facility] [facility] [place] Malgorzata infection Active Finding 02/16/[address] [facility] [facility] [place] Urethral stricture Active Finding 02/16/[address] [facility] [address] [facility] [place] Atrial fibrillation Active Finding 02/16/[address] [facility] [address] [facility] [place] Kidney disease Active Finding 02/16/[address] [facility] [address] [facility] [place] DJD Active Finding 02/16/[address] [facility] [address] [facility] [place] Testicular carcinoma Active Finding 02/16/[address] [facility] [facility] [place] Bladder outlet Active Finding 02/16/[address] [facility] obstruction 014 [facility] [place] Crohn's disease Inactive Finding 02/16/[address] [facility] [facility] [place] Hypertensive Inactive Finding 02/16/[address] [facility] disorder, systemic [facility] arterial [place] Rheumatoid arthritis Inactive Finding 02/16/[address] [facility] RA [facility] [place] Immunosuppressive Inactive Finding 02/16/[address] [facility] therapy [facility] [place] Cellulitis Inactive Finding 02/16/[address] [facility] [facility] [place] Lymphedema Inactive Finding 02/16/[address] [facility] [facility] [place] Gastroesophageal Inactive Finding 02/16/[address] reflux disease [facility] [place] Morbid obesity Inactive Finding 02/16/[address] [facility] [facility] [place] Osteoarthritis of Inactive Finding 02/16/[address] [facility] knee [facility] [place] Avascular necrosis Inactive Finding 02/16/[address] of bone [facility] [place] Anemia due to blood Inactive Finding 02/16/[address] [facility] loss [facility] [place] Hypercapnic Active Finding 02/16/[address] respiratory failure [facility] [place] Pulmonary embolism Active Finding 02/16/[address] [facility] [place] Medications Medication Details Route Status Patient Ordering Order Source Instructions Provider Date Levofloxacin DAILY Active [facility] [place] Sotalol Hcl TWICE DAILY Active [facility] [place] Hydromorphone EVERY EIGHT Active [facility] HOURS [facility]18 [facility] NEEDED PRN [place] For Pain Acetazolamide DAILY Active [facility] [place] Oxybutynin TWICE DAILY Active [facility] Chloride 017 [facility] [place] Promethazine Hcl FOUR TIMES Active Tub[facility] DAILY PRN 017 [facility] For Nausea [place] / Vomiting Aripiprazole DAILY [facility] [place] Sotalol Hcl TWICE DAILY [facility] [place] Chlorthalidone DAILY [facility] [place] Duloxetine Hcl DAILY Active [facility] [place] Prednisone DAILY Active [facility] [place] Pantoprazole DAILY Active [facility] [place] Rivaroxaban DAILY Active [facility] [place] Spironolactone TWICE DAILY Active [facility] [place] Tamsulosin Hcl DAILY Active [facility] [place] Codeine/Apap EVERY [address] [facility] HOURS 015 [facility] - NEEDED PRN [place] For Pain Ceftazidime Q8H Active [facility] [place] Vancomycin/0.9 % DAILY Active [facility] Sod Chloride 015 [facility] [place] Furosemide DAILY Active [facility] NEEDED PRN 015 [facility] For [place] Shortness Of Breath Potassium DAILY Active [facility] Chloride NEEDED PRN 015 [facility] For [place] Shortness Of Breath Magnesium Oxide TWICE DAILY Active [facility] [place] Pregabalin TWICE DAILY Active [facility] [place] Furosemide DAILY Active [facility] [place] Potassium DAILY Active Tub[facility] Chloride 015 [facility] [place] Hydrocodone Q6H PRN For Active Tub[facility] 10/Apap 325 Pain 015 [facility] [place] Hydrocodone Q6H PRN For Active [facility] 10/Apap 325 Pain 015 [facility] [place] Hydrocodone Q6H PRN For Active Plaza [facility] 10/Apap 325 Pain 013 [facility] [place] Clonidine Hcl THREE TIMES Active Tub[facility] A DAY 013 [facility] [place] Clonidine Hcl TWICE DAILY Active [facility]13 [facility] [place] Vancomycin Hcl Q12H Active [facility]12 [facility] [place] Amox/Clavulanate TWICE DAILY Active Tub[facility]12 [facility] [place] Nebivolol Hcl DAILY Active [facility] [place] Prednisone DAILY PRN Active [facility] For Pain 012 [facility] [place] Celecoxib DAILY Active [facility] [place] Rabeprazole Active [facility] Sodium 012 [facility] [place] Allergies, Adverse Reactions, Alerts Substance Category Reaction Severity Reaction Status Date Comments Source type Reported infliximab Anaphylaxis Severe Allergy to Active [facility] Substance 8 [facility] [place] latex Anaphylaxis Severe Allergy to [facility] Substance 8 [facility] [place] Latex, Anaphylaxis Severe Allergy to Active [facility] Natural Substance 8 [facility] Rubber [place] meperidine Nausea/Vomi Moderate Propensity Active [facility] HCl ting to adverse 8 [facility] reactions [place] Immunizations Immunization Date Given Site Status Last Comments Source Updated Pneumovax 11/05/[address] [facility] [place] Results Order Name Results Value Reference Date Interpretation Comments Source Range Microbiolog Escherichia Escherichia 02/16 [facility] [address] y Studies Coli Coli /2017 [facility] [place] Laboratory Potassium 4.2 3.6 - 5.0 02/15 [facility] St[facility] Studies Level [facility] [place] [facility] Magnesium 2.1 1.8 - 2.5 02/15 [facility] St[facility] Studies Level [facility] [place] Laboratory Hemoglobin 6.4 4 - 6.0 02/15 [facility]. Studies A1c [facility] [place] [facility] Thyroid 1.35 0.34 - 02/15 [facility]. Studies Stimulating 5.60 [facility] Hormone (TSH) [place] [facility] Total 0.6 0.3 - 1.2 02/15 [facility]. Studies Bilirubin [facility] [place] [facility] Serum Total 7.2 6.0 - 8.3 02/15 [facility]. Studies Protein [facility] [place] Laboratory Globulin 3.2 2.3 - 3.5 02/15 [facility] [address] Studies [facility] [place] Laboratory Estimat 64 90 02/15 [facility]. Studies Glomerular [facility] Filtration [place] Rate Laboratory Creatinine 1.18 0.61 - 02/15 [facility]. Studies 1.24 [facility] [place] Laboratory Blood Urea 24 6 - 20 02/15 [facility]. Studies Nitrogen [facility] [place] Laboratory Aspartate 18 10 - 42 02/15 [facility]. Studies Amino Transf [facility] - (AST/SGOT) [place] Laboratory Alkaline 111 42 - 121 02/15 [facility]. Studies Phosphatase [facility] [place] Laboratory Albumin/Globu 1.3 1.1 - 1.8 02/15 [facility]. Studies ritesh Ratio /2017 [facility] [place] Laboratory Albumin 4.0 3.2 - 5.5 02/15 [facility]. Studies [facility] [place] Laboratory Alanine 20 10 - 60 02/15 [facility]. Studies Aminotransfer [facility] ase [place] (ALT/SGPT) Laboratory Sodium Level 134 135 - 145 02/15 [facility] [address] Studies /2017 [facility] [place] Laboratory Glucose Level 143 65 - 120 02/15 [facility] St. Studies /2017 [facility] [place] Laboratory Chloride 97 101 - 111 02/15 [facility]. Studies Level /2017 [facility] [place] Laboratory Carbon 27 21 - 31 02/15 [facility]. Studies Dioxide Level /2017 [facility] [place] Laboratory Calcium Level 9.2 8.5 - 10.5 02/15 [facility]. Studies /2017 [facility] [place] Laboratory White Blood 14.6 4.3 - 10.9 02/15 [facility]. Studies Count /2017 [facility] [place] Laboratory Red Cell 15.1 12.1 - 02/15 [facility]. Studies Distribution 15.2 /2017 [facility] Width [place] Laboratory Red Blood 4.52 4.33 - 02/15 [facility]. Studies Count 5.43 /2017 [facility] [place] Laboratory Platelet 301 152 - 406 02/15 [facility]. Studies Count /2017 [facility] [place] Laboratory Neutrophils % 71.3 41.7 - 02/15 [facility]. Studies 73.7 /2017 [facility] [place] Laboratory Monocytes % 7.1 3.3 - 12.3 02/15 [facility]. Studies /2017 [facility] [place] Laboratory Mean Platelet 9.2 7.6 - 11.3 02/15 [facility]. Studies Volume /2017 [facility] [place] Laboratory Mean 90.2 80 - 100 02/15 [facility]. Studies Corpuscular /2017 [facility] Volume [place] Laboratory Mean 32.7 32.0 - 02/15 [facility] Studies Corpuscular 36.0 /2017 [facility] Hemoglobin [place] Concent Laboratory Mean 29.5 27.0 - 02/15 [facility]. Studies Corpuscular 35.0 /2017 [facility] Hemoglobin [place] Laboratory Lymphocytes % 18.0 15.3 - 02/15 [facility]. Studies 44.8 /2017 [facility] [place] Laboratory Hemoglobin 13.3 13.6 - 02/15 [facility]. Studies 17.9 /2017 [facility] [place] Laboratory Hematocrit 40.8 39.6 - 02/15 [facility]. Studies 49.0 /2017 [facility] [place] Laboratory Eosinophils % 2.8 0 - 4.4 02/15 [facility]. Studies /2017 [facility] [place] Laboratory Basophils % 0.8 0 - 1.3 02/15 [facility]. Studies /2017 [facility] [place] Laboratory Absolute 10.4 1.8 - 8.0 02/15 [facility] [address] Studies Neutrophil /2017 [facility] [place] Laboratory Absolute 1.0 0.1 - 1.3 02/15 [facility] St[facility] Studies Monocytes [facility] - (CBC) [place] Laboratory Absolute 2.6 0.7 - 4.9 02/15 [facility]. Studies Lymphocytes [facility] - (CBC) [place] Laboratory Absolute 0.4 0 - 0.5 02/15 [facility] [address] Studies Eosinophils [facility] - (CBC) [place] Laboratory Absolute 0.1 0 - 0.5 02/15 [facility]. Studies Basophils [facility] - (CBC) [place] Laboratory Urine WBC >50 02/14 [facility] St. Studies /2017 [facility] [place] Laboratory Urine <5 02/14 [facility]. Studies Squamous [facility] Epithelial [place] Cells Laboratory Urine RBC Urine RBC 02/14 [facility] St. Studies /2017 [facility] [place] Laboratory Urine Mucus Urine Mucus 02/14 [facility] St. Studies /2017 [facility] [place] Laboratory Urine Culture Urine 02/14 [facility] Studies Reflexed Culture /2017 [facility] Reflexed [place] Laboratory Urine Urine 02/14 [facility] Studies Bacteria Bacteria /2017 [facility] [place] Laboratory Urine pH 5.5 02/14 [facility] St. Studies /2017 [facility] [place] Laboratory Urine 1.0 02/14 [facility] Studies Urobilinogen /2017 [facility] [place] Laboratory Urine Total Urine Total 02/14 [facility]. Studies Protein Protein /2017 [facility] [place] Laboratory Urine 1.010 02/14 [facility] St[facility] Studies Specific /2017 [facility] [place] Laboratory Urine Nitrite Urine 02/14 [facility]. Studies Nitrite /2017 [facility] [place] Laboratory Urine Urine 02/14 [facility]. Studies Leukocyte Leukocyte /2017 [facility] - Esterase Esterase [place] Laboratory Urine Ketones Urine 02/14 [facility]. Studies Ketones /2017 [facility] [place] Laboratory Urine Glucose Urine 02/14 [facility]. Studies Glucose /2017 [facility] [place] Laboratory Urine Color Urine Color 02/14 [facility]. Studies /2017 [facility] [place] Laboratory Urine Blood Urine Blood 02/14 [facility] St. Studies /2017 [facility] [place] Laboratory Urine Urine 02/14 [facility]. Studies Bilirubin Bilirubin /2017 [facility] [place] Laboratory Urine Urine 02/14 [facility]. Studies Appearance Appearance /2017 [facility] [place] Laboratory Blood Blood 01/28 [facility]. Studies Morphology Morphology /2017 [facility] - Comment Comment [place] Laboratory Vancomycin 13.0 5 - 20 01/14 [facility] St. Studies Level Trough /2017 [facility] [place] Laboratory Segmented 72 40 - 80 01/06 [facility]. Studies Neutrophils /2017 [facility] [place] Laboratory Monocytes 6 0 - 10 01/06 [facility] St[facility] Studies /2017 [facility] [place] Laboratory Metamyelocyte 1 0 - 0 01/06 [facility] [address] Studies s /2017 [facility] [place] Laboratory Lymphocytes 15 15 - 42 01/06 [facility] St[facility] Studies /2017 [facility] [place] Laboratory Eosinophils 6 0 - 3 01/06 [facility] St. Studies /2017 [facility] [place] Laboratory Atypical 3 01/03 [facility]. Studies Lymphocytes /2017 [facility] [place] Laboratory Troponin I <0.03 12/28 [facility] St. Studies /2017 [facility] [place] Laboratory Procalcitonin <0.05 12/27 [facility] St. Studies /2017 [facility] [place] Laboratory Direct 0.1 0 - 0.2 12/27 [facility]. Studies Bilirubin /2017 [facility] [place] Laboratory Creatine 0.7 0.3 - 4.0 12/27 [facility]. Studies Kinase MB /2017 [facility] [place] Laboratory Creatine 13 22 - 269 12/27 [facility]. Studies Kinase /2017 [facility] [place] Laboratory Lactic Acid 12.5 4.5 - 19.8 12/27 [facility]. Studies Level /2017 [facility] [place] Laboratory B-Type 15 12/27 [facility] St[facility] Studies Natriuretic /2017 [facility] Peptide [place] Laboratory Lipase 18 22 - 51 12/27 [facility] St[address] Studies /2018 [facility] [place] Laboratory Rapid <0.03 12/27 [facility]. Studies Troponin I /2017 [facility] [place] Laboratory Prothrombin 19.7 9.5 - 12.5 12/27 [facility] St. Studies Time /2017 [facility] [place] Laboratory INR 1.66 12/27 [facility]. Studies International /2017 [facility] Normalized [place] Ratio Laboratory Activated 38.0 24.3 - 02 [facility]. Studies Partial 36.9 /2017 [facility] Thromboplast [place] Time Pathology Reports No Data Provided for This Section Diagnostic Reports No Data Provided for This Section Consultation Notes No Data Provided for This Section Discharge Summaries No Data Provided for This Section History and Physicals No Data Provided for This Section Vital Signs Vital Sign Value Date Comments Source Heart Rate 70 02/16/2018 [facility] [place] Systolic (mm Hg) 102 02/16/[address] [facility] [address] [facility] [place] Diastolic (mm Hg) 60 02/16/[address] [facility] [address] - [place] Temperature Oral (F) 99.6 F 02/16/[address] [facility] [place] Respitory Rate 14 02/16/[address] [facility] [address] [place] Height 74 02/15/[address] [facility] [place] Weight 380 02/15/2018 [facility] [place] Encounters Location Location Encounter Encounter Reason Attending ADM DC Status Source Details Type Number For Provider Date Date Visit [facility] St. Discharged [id number] 12/27 01/04 [facility] [place] [facility] St. Registered [id number] 01/06 [facility] [place] [facility] St. Registered [id number] 01/10 [facility] [place] [facility] St. Registered [id number] 01/14 [facility] [place] [facility] St. Registered [id number] 01/28 [facility] [place] [facility] St. Registered [id number] 02/14 [facility] Ref[facility] [place] [facility] St. Discharged [id number] 02/15 02/16 [facility] [place] Procedures Procedure Code Date Perfomer Comments Source Anaerobic Blood 02/15/2018 [facility] - Culture [place] Aerobic Blood 02/15/2018 [facility] [place] [id number] 02/14/2018 [facility] [place] Count [id number] 02/14/2018 [facility] [place] Gram Stain [id number] 12/28/[address] [facility] [place] Anaerobic [id number] 12/28/[address] [facility] - Culture [place] Anaerobic Blood [id number] 12/27/[address] [facility] - Culture [place] Aerobic Blood [id number] 12/27/[address] [facility] - Culture [place] Abdomen & Pelvis [id number] 12/27/[address] [facility] - W Contrast [place] Chest Single [id number] 12/27/2017 [facility] [address] - View [place] DRAINAGE OF ABD [id number] 12/27/2017 [facility] StChilo Cunha - SUBCU/FASCIA, [place] OPEN APPROACH Assessment and Plan No Data Provided for This Section Plan of Care Plan of Care Date Source Instructions 02/16/[address] [facility] [place] DI for Urinary Tract Infection (UTI) PROBLEM: urinary tract infection GOAL: Clear understanding of disease process INSTRUCTIONS: continue all prior home medications and start Levaquin as prescribed, followup with Dr. Tubbs in one month. DC wound vac, clean wound and pack with quarter inch plain packing daily Instructions 02/16/[address] [facility] [place] DI for Urinary Tract Infection (UTI) PROBLEM: urinary tract infection GOAL: Clear understanding of disease process INSTRUCTIONS: continue all prior home medications and start Levaquin as prescribed, followup with Dr. Tubbs in one month. DC wound vac, clean wound and pack with quarter inch plain packing daily Social History Social History Date Source Query Response Date Recorded Comment 02/16/2018 [facility] Halevicente Sabiha Chapman Alcohol Use? No February 15, 2018 2:29pm CD- Drugs? No February 15, 2018 2:29pm Query Response Start Date Stop Date Smoking Status Never smoker Family History Value Date Source Query Response Instance Date Recorded Comment 02/16/2018 [facility] - [place] Nurses notes Lung Cancer Mother February 15, 2018 2:29pm Nurses notes Melanoma Father February 15, 2018 2:29pm Medical History Hypertension Stroke Cancer Mother February 15, 2018 2:29pm Medical History Stroke Cancer Other (see notes) Father February 15, 2018 2:29pm Medical History Heart disease Hypertension Cancer Liver disease Brother February 15, 2018 2:29pm History Unknown Yes Brother February 15, 2018 2:29pm Medical History Hypertension Stroke Cancer December 19, 2016 9:46am Advance Directives Order Name Results Value Date Source Advance Directives Advance Directives Advance Directive Response Recorded Date/Time 02/16/2018 [facility] Yoo - Does Patient Have Living Will [place] Yes February 16, 2018 6:00am Durable Power of Circulation Worker for Health Care Yes February 15, 2018 2:29pm Would you like additional information No February 15, 2018 2:29pm Functional Status No Data Provided for This Section
[2019-06-13] MEDS ORDERED: CEFTRIAXONE/SWI 1gm 1 GM/10 ML SYR ONE (12:46)
[2019-06-13] MEDS ORDERED: ONDANSETRON 4 MG/2 ML VIAL ONE (12:46)
[2019-06-13] MEDS ORDERED: MORPHINE 4 MG/ML SYR ONE (12:46)
[2019-06-13 12:52] LABS: Absolute Lymphocytes (CBC) 2.1 K/uL (0.7-4.9); Basophils % 0.5 % (0-1.3); Hematocrit 37.8 % (39.6-49.0); Lymphocytes % 15.5 % (15.3-44.8); MPV 8.9 fL (7.6-11.3); RBC Red Blood Cell Count 3.85 M/uL (4.33-5.43)
[2019-06-13 13:04] LABS: Albumin 3.3 g/dL (3.4-5.0); Bilirubin Direct 0.1 mg/dL (0-0.2); Bilirubin Total 0.4 mg/dL (0.2-1.0); Potassium 3.9 mmol/L (3.5-5.1); Protein, Total 6.1 g/dL (6.4-8.2)
[2019-06-13] MEDS ORDERED: FENTANYL CITR 100 MCG/2 ML ONE ×2 (13:30→16:35)
[2019-06-13 13:31] LABS: Urine Blood 3+ (NEG); Urine Glucose NEGATIVE (NEG); Urine Protein 3+ (NEG); Urine Specific Gravity >1.030 (1.005-1.030); Urine pH 5.5 (5.0-7.0)
--- NOTE | 2019-06-13 13:50 | RAD REPORT ---
EXAM DESCRIPTION: CTAbdomen Pelvis W Contrast - 06/13/2019 1:31 pm CLINICAL HISTORY: Abdominal pain. Perineal pain;Abd pain COMPARISON: Abdomen Pelvis W Contrast dated 10/05/2018; Abdomen Pelvis W Contrast dated 12/27/2017 ; Abdomen Pelvis W Contrast dated 10/16/2017; Abdomen Pelvis W Contrast dated 02/28/2016 TECHNIQUE: Biphasic CT imaging of the abdomen and pelvis was performed with 100 ml non-ionic IV cont rast. All CT scans are performed using dose optimization technique as appropriate and may include automated exposure control or mA/KV adjustment according to patient size. FINDINGS: The lung bases are clear. The liver demonstrates no focal mass or intra/ extrahepatic biliary dilatation. Spleen, adrenal gland s and pancreas are unremarkable. Postsurgical changes present about stomach. The gallbladder is surgi demetri absent. Postsurgical changes about aorta. Atrophic left kidney is seen. The right kidney containing several cysts. No hydronephrosis. No bowel obstruction, free air, free fluid or abscess. Complex large ventral hernia again noted. No p erianal abnormality seen. No evidence of significant lymphadenopathy. Bilateral total hip arthroplasties are noted. Moderate lumbar degenerative changes. IMPRESSION: No acute process is demonstrated. Complex ventral hernia is present, similar to prior study.
[2019-06-13] MEDS ORDERED: NA CHLORIDE 0.9% 500 ML ONE (13:59)
[2019-06-13] MEDS ORDERED: VANCOMYCIN 1.5 GM in NA CHLORIDE 0.9% 500 ML IVPB ONE (14:00)
--- NOTE | 2019-06-13 14:08 | EDPHYS ---
Physician Documentation [facility] Name: Husam Vela Age: 58 yrs Sex: Male : 1960 Arrival Date: 06/13/2019 Time: 11:53 Bed 3 Private MD: Yuliana Tubbs C ED Physician Ezekiel Keating HPI: 06/13 14:54 This 58 yrs old Male presents to ER via Wheelchair with complaints of kdr Possible Kidney Infection. 14:54 Right flank and perineal pain that began on Wednesday. The patient has had increasing kdr pain and dark urine since then. He denies any other associated s/s. Onset: The symptoms/episode began/occurred gradually, Wednesday. Severity of symptoms: At their worst the symptoms were mild moderate in the emergency department the symptoms are unchanged. The patient has experienced similar episodes in the past, several times. The patient has not recently seen a physician. Historical: - Allergies: 12:21 Demerol; ph 12:21 Latex, Natural Rubber; ph 12:21 Remicade; ph - Home Meds: 12:21 acetazolamide 250 mg Oral tab 1 tab once daily [Active]; anakinra subcutaneous once ph daily [Active]; chlorthalidone 25 mg Oral tab 1 tab once daily [Active]; Cymbalta 60 mg Oral cpDR 2 caps once daily [Active]; folic acid 1 mg Oral tab 1 tab once daily [Active]; methotrexate (PF) subcutaneous [Active]; [place] 7.5-325 mg Oral tab 1 tab every 6 hours [Active]; prednisone 5 mg Oral tab 3 tabs once daily [Active]; Protonix 40 mg Oral chew 1 tab once daily [Active]; sotalol 120 mg Oral tab 1 tab 2 times per day [Active]; spironolactone 50 mg Oral tab 1 tab 2 times per day [Active]; Xarelto 20 mg Oral tab 1 tab once daily [Active]; - PMHx: 12:21 Atrial Fib; Hypertension; left 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 - Social history:: Smoking status: Patient/guardian denies using tobacco. - Ebola Screening: : No symptoms or risks identified at this time. ROS: 14:54 Constitutional: Negative for fever, chills, and weight loss, Eyes: Negative for injury, kdr pain, redness, and discharge, Neck: Negative for injury, pain, and swelling, Cardiovascular: Negative for chest pain, palpitations, and edema, Respiratory: Negative for shortness of breath, cough, wheezing, and pleuritic chest pain, Skin: Negative for injury, rash, and discoloration, Neuro: Negative for headache, weakness, numbness, tingling, and seizure activity. Psych: Negative for depression, anxiety, suicide ideation, homicidal ideation, and hallucinations, Allergy/Immunology: Negative for hives, rash, and allergies, Endocrine: Negative for neck swelling, polydipsia, polyuria, polyphagia, and marked weight changes, Hematologic/Lymphatic: Negative for swollen nodes, abnormal bleeding, and unusual bruising. 14:54 Abdomen/GI: Positive for Diffuse low abdominal, right flank and perineal pain. Exam: 14:54 Constitutional: This is a well developed, well nourished patient who is awake, alert, kdr and in no acute distress. Head/Face: Normocephalic, atraumatic. Eyes: Pupils equal round and reactive to light, extra-ocular motions intact. Lids and lashes normal. Conjunctiva and sclera are non-icteric and not injected. Cornea within normal limits. Periorbital areas with no swelling, redness, or edema. Neck: Trachea midline, no thyromegaly or masses palpated, and no cervical lymphadenopathy. Supple, full range of motion without nuchal rigidity, or vertebral point tenderness. No Meningismus. Chest/axilla: Normal chest wall appearance and motion. Nontender with no deformity. No lesions are appreciated. Cardiovascular: Regular rate and rhythm with a normal S1 and S2. No gallops, murmurs, or rubs. Normal PMI, no JVD. No pulse deficits. Respiratory: Lungs have equal breath sounds bilaterally, clear to auscultation and percussion. No rales, rhonchi or wheezes noted. No increased work of breathing, no retractions or nasal flaring. Skin: Warm, dry with normal turgor. Normal color with no rashes, no lesions, and no evidence of cellulitis. 14:54 Abdomen/GI: Inspection: distension. 14:54 Back: pain, that is mild, ROM is painful, with all movement, normal spinal alignment noted, CVA tenderness. Vital Signs: 12:19 BP 126 / 79; Pulse 83; Resp 18; Temp 98.1; Pulse Ox 97% on R/A; Weight 174.63 kg; ph Height 6 ft. 2 in. (187.96 cm); 13:00 BP 112 / 62; Pulse 81; Resp 16; Pulse Ox 95% on R/A; ph 14:04 BP 103 / 58; Pulse 84; Resp 18; Pulse Ox 93% on R/A; ph 15:00 BP 98 / 56; Pulse 81; Resp 18; Pulse Ox 95% on R/A; ph 16:24 BP 103 / 54; Pulse 82; Resp 18; Temp 97.8; Pulse Ox 96% on R/A; ph 12:19 Body Mass Index 49.43 (174.63 kg, 187.96 cm) ph MDM: 14:08 Patient medically screened. kdr 14:54 Data reviewed: vital signs, nurses notes, lab test result(s), radiologic studies. kdr Counseling: I had a detailed discussion with the patient and/or guardian regarding: the historical points, exam findings, and any diagnostic results supporting the discharge/admit diagnosis, lab results. 06/13 11:58 Order name: Basic Metabolic Panel; Complete Time: 13:10 kdr 06/13 11:58 Order name: CBC with Diff; Complete Time: 13:10 [facility] 06/13 11:58 Order name: Creatinine for Radiology; Complete Time: 13:10 [facility] 06/13 11:58 Order name: Hepatic Function; Complete Time: 13:10 [facility] 06/13 11:58 Order name: Lipase; Complete Time: 13:10 kdr 06/13 11:58 Order name: Urine Culture kdr 06/13 11:58 Order name: Blood Culture Adult (2) kdr 06/13 12:06 Order name: CT Abd/Pelvis - IV Contrast Only; Complete Time: 14:03 kdr 06/13 13:09 Order name: Urine Dipstick--Ancillary (enter results); Complete Time: 14:03 06/13 14:37 Order name: Basic Metabolic Panel [facility] 06/13 14:37 Order name: Basic Metabolic Panel [facility] 06/13 14:37 Order name: CBC with Automated Diff EDMS 06/13 14:37 Order name: CBC with Automated Diff EDMS 06/13 11:58 Order name: IV Saline Lock; Complete Time: 12:22 kdr 06/13 11:58 Order name: Labs collected and sent; Complete Time: 12:40 kdr 06/13 11:58 Order name: Urine Dipstick-Ancillary (obtain specimen); Complete Time: 16:47 kdr 06/13 14:37 Order name: CONS Pharmacy Consult EDMS 06/13 14:37 Order name: CONS Pharmacy Consult EDMS 06/13 14:37 Order name: Consistent Carb (ADA) 1800 Papa EDMS Administered Medications: 12:33 Drug: Zofran 4 mg Route: IVP; Site: Port-a-cath; ph 13:00 Follow up: Response: No adverse reaction ph 12:35 Drug: morphine 4 mg Route: IVP; Site: Port-a-cath; ph 13:00 Follow up: Response: No adverse reaction; Pain is unchanged, physician notified ph 12:39 Drug: Rocephin - (cefTRIAXone) 1 grams Route: IVPB; Infused Over: 30 mins; Site: Port-a-cath; 12:50 Follow up: Response: No adverse reaction; IV Status: Completed infusion ph 13:15 Drug: fentaNYL (PF) 50 mcg Route: IVP; Site: Port-a-cath; ss 13:47 Follow up: Response: No adverse reaction; Pain is decreased aa5 14:39 Follow up: Response: No adverse reaction; Pain is decreased ph 13:47 Drug: NS 0.9% 500 ml Route: IV; Rate: bolus; Site: right hand; aa5 14:39 Follow up: Response: No adverse reaction; IV Status: Completed infusion; IV Intake: ph 500ml 14:16 Drug: vancoMYCIN 1.5 grams Route: IVPB; Rate: calculated rate; Site: Port-a-cath; ph 16:53 Follow up: Response: No adverse reaction; IV Status: Completed infusion ph 16:23 Drug: Phenergan 12.5 mg Route: IVP; Site: Port-a-cath; ph 16:53 Follow up: Response: No adverse reaction; Nausea is decreased ph 16:23 Drug: fentaNYL (PF) 50 mcg Route: IVP; Site: Port-a-cath; ph 16:53 Follow up: Response: No adverse reaction; Pain is decreased ph Disposition: 06/13/19 14:08 Hospitalization ordered by Yuliana Tubbs for Inpatient Admission. Preliminary diagnosis are Abdominal and pelvic pain, Urinary tract infection, site not specified, Early Pyelonephritis. - Bed requested for Telemetry/MedSurg (Inpatient). - Status is Inpatient Admission. ph - Condition is Fair. - Problem is an acute exacerbation. - Symptoms have improved. UTI on Admission? Yes Signatures: Dispatcher [employer] EDMS Peri Mendez Kevin, MD MD kdr Funmilayo Khan RN RN aa5 Viky Alonso RN RN ss Sintia Kelley RN RN ph Corrections: (The following items were deleted from the chart) 14:16 14:08 Hospitalization Ordered by A [facility] for Inpatient Admission. Preliminary kdr diagnosis is Abdominal and pelvic pain; Urinary tract infection, site not specified. Bed requested for Telemetry/MedSurg (Inpatient). Status is Inpatient Admission. Condition is Fair. Problem is an acute exacerbation. Symptoms have improved. UTI on Admission? Yes. kdr 15:34 14:16 06/13/2019 14:08 Hospitalization Ordered by A [facility] for Inpatient Admission. bd Preliminary diagnosis is Abdominal and pelvic pain; Urinary tract infection, site not specified; Early Pyelonephritis. Bed requested for Telemetry/MedSurg (Inpatient). Status is Inpatient Admission. Condition is Fair. Problem is an acute exacerbation. Symptoms have improved. UTI on Admission? Yes. kdr 16:54 15:34 06/13/2019 14:08 Hospitalization Ordered by A [facility] for Inpatient Admission. ph Preliminary diagnosis is Abdominal and pelvic pain; Urinary tract infection, site not specified; Early Pyelonephritis. Bed requested for Telemetry/MedSurg (Inpatient). Status is Inpatient Admission. Condition is Fair. Problem is an acute exacerbation. Symptoms have improved. UTI on Admission? Yes. bd
--- NOTE | 2019-06-13 14:08 | ER ---
Nurse's Notes [facility] Name: Husam Vela Age: 58 yrs Sex: Male : 1960 Arrival Date: 06/13/2019 Time: 11:53 Bed 3 Private MD: Yuliana Tubbs C Diagnosis: Abdominal and pelvic pain;Urinary tract infection, site not specified;Early Pyelonephritis Presentation: 06/13 12:14 Presenting complaint:. ph 12:16 Presenting complaint: Patient states: Pelvic and R low back since Wednesday, also c/o ph N/V, denies diarrhea or fever, SO reports that pt has only urinated 50 cc since last night, hx of L nephrectomy. Transition of care: patient was not received from another setting of care. Onset of symptoms was June 13, 2019. Risk Assessment: Do you want to hurt yourself or someone else? Patient reports no desire to harm self or others. Initial Sepsis Screen: Does the patient meet any 2 criteria? No. Patient's initial sepsis screen is negative. Does the patient have a suspected source of infection? Yes: Dysuria/Frequency/Urgency/UTI. Care prior to arrival: None. 12:16 Method Of Arrival: Wheelchair ph 12:16 Acuity: CECI 3 ph Historical: - Allergies: 12:21 Demerol; ph 12:21 Latex, Natural Rubber; ph 12:21 Remicade; ph - Home Meds: 12:21 acetazolamide 250 mg Oral tab 1 tab once daily [Active]; anakinra subcutaneous once ph daily [Active]; chlorthalidone 25 mg Oral tab 1 tab once daily [Active]; Cymbalta 60 mg Oral cpDR 2 caps once daily [Active]; folic acid 1 mg Oral tab 1 tab once daily [Active]; methotrexate (PF) subcutaneous [Active]; [place] 7.5-325 mg Oral tab 1 tab every 6 hours [Active]; prednisone 5 mg Oral tab 3 tabs once daily [Active]; Protonix 40 mg Oral chew 1 tab once daily [Active]; sotalol 120 mg Oral tab 1 tab 2 times per day [Active]; spironolactone 50 mg Oral tab 1 tab 2 times per day [Active]; Xarelto 20 mg Oral tab 1 tab once daily [Active]; - PMHx: 12:21 Atrial Fib; Hypertension; left 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 - Social history:: Smoking status: Patient/guardian denies using tobacco. - Ebola Screening: : No symptoms or risks identified at this time. Screenin:21 Abuse screen: Denies threats or abuse. Denies injuries from another. Nutritional ph screening: No deficits noted. Tuberculosis screening: No symptoms or risk factors identified. Fall Risk None identified. Assessment: 12:22 General: Appears in no apparent distress. comfortable, well groomed, Behavior is calm, ph cooperative, appropriate for age, Denies fever. Pain: Complains of pain in right mid back, right low back and pelvis. Neuro: Level of Consciousness is awake, alert, obeys commands, Oriented to person, place, time, situation. Cardiovascular: Capillary refill < 3 seconds in bilateral fingers Patient's skin is warm and dry. Respiratory: Airway is patent Respiratory effort is even, unlabored, Respiratory pattern is regular, symmetrical. GI: Abdomen is non-distended, obese, Reports nausea, vomiting, Patient currently denies abdominal pain, diarrhea. : Reports inability to void, pain in right in suprapubic area in lower back. Derm: Skin is intact, is healthy with good turgor, Skin is pink, warm \T\ dry. Musculoskeletal: Circulation, motion, and sensation intact. Range of motion: intact in all extremities. 13:47 Reassessment: Patient is alert, oriented x 3, equal unlabored respirations, skin aa5 warm/dry/pink. Patient states feeling better. 16:52 Reassessment: Patient appears in no apparent distress at this time. Patient and/or ph family updated on plan of care and expected duration. Pain level reassessed. Patient is alert, oriented x 3, equal unlabored respirations, skin warm/dry/pink. Report called to Neftali Mota RN, pty taken to room via stretcher. Vital Signs: 12:19 BP 126 / 79; Pulse 83; Resp 18; Temp 98.1; Pulse Ox 97% on R/A; Weight 174.63 kg; ph Height 6 ft. 2 in. (187.96 cm); 13:00 BP 112 / 62; Pulse 81; Resp 16; Pulse Ox 95% on R/A; ph 14:04 BP 103 / 58; Pulse 84; Resp 18; Pulse Ox 93% on R/A; ph 15:00 BP 98 / 56; Pulse 81; Resp 18; Pulse Ox 95% on R/A; ph 16:24 BP 103 / 54; Pulse 82; Resp 18; Temp 97.8; Pulse Ox 96% on R/A; ph 12:19 Body Mass Index 49.43 (174.63 kg, 187.96 cm) ED Course: 11:53 Patient arrived in ED. dp 11:54 Yuliana Tubbs MD is Private Physician. dp 11:57 Ezekiel Keating MD is Attending Physician. kdr 12:14 Sintia Kelley RN is Primary Nurse. ph 12:18 Triage completed. ph 12:20 Arm band placed on Patient placed in an exam room, on a stretcher. ph 12:21 Patient has correct armband on for positive identification. Placed in gown. Bed in low ph position. Call light in reach. Side rails up X2. hall monitor on. Pulse ox on. NIBP on. Door closed. Noise minimized. Warm blanket given. Head of bed elevated. 12:22 Inserted saline lock: 22 gauge in right antecubital area, using aseptic technique. ph 12:45 Accessed Port-a-Cath. using accessed w/ # 20 Harris needle, ,sterile technique, per hospital protocol. Clean \T\ dry. Dressing intact. Good blood return. Flushes easily. 13:33 CT Abd/Pelvis - IV Contrast Only In Process Unspecified. EDMS 14:04 Yuliana Tubbs MD is Hospitalizing Provider. kdr 16:25 No provider procedures requiring assistance completed. Patient admitted, IV remains in ph place. Administered Medications: 12:33 Drug: Zofran 4 mg Route: IVP; Site: Port-a-cath; ph 13:00 Follow up: Response: No adverse reaction ph 12:35 Drug: morphine 4 mg Route: IVP; Site: Port-a-cath; ph 13:00 Follow up: Response: No adverse reaction; Pain is unchanged, physician notified ph 12:39 Drug: Rocephin - (cefTRIAXone) 1 grams Route: IVPB; Infused Over: 30 mins; Site: Port-a-cath; 12:50 Follow up: Response: No adverse reaction; IV Status: Completed infusion ph 13:15 Drug: fentaNYL (PF) 50 mcg Route: IVP; Site: Port-a-cath; ss 13:47 Follow up: Response: No adverse reaction; Pain is decreased aa5 14:39 Follow up: Response: No adverse reaction; Pain is decreased ph 13:47 Drug: NS 0.9% 500 ml Route: IV; Rate: bolus; Site: right hand; aa5 14:39 Follow up: Response: No adverse reaction; IV Status: Completed infusion; IV Intake: ph 500ml 14:16 Drug: vancoMYCIN 1.5 grams Route: IVPB; Rate: calculated rate; Site: Port-a-cath; ph 16:53 Follow up: Response: No adverse reaction; IV Status: Completed infusion ph 16:23 Drug: Phenergan 12.5 mg Route: IVP; Site: Port-a-cath; ph 16:53 Follow up: Response: No adverse reaction; Nausea is decreased ph 16:23 Drug: fentaNYL (PF) 50 mcg Route: IVP; Site: Port-a-cath; ph 16:53 Follow up: Response: No adverse reaction; Pain is decreased ph Intake: 14:39 IV: 500ml; Total: 500ml. ph Outcome: 14:08 Decision to Hospitalize by Provider. kdr 16:53 Admitted to Med/surg accompanied by tech, via stretcher, room 402, with chart, Report ph called to Neftali Mota RN 16:53 Condition: stable 16:53 Instructed on the need for admit. 16:54 Patient left the ED. ph Signatures: Dispatcher [employer] EDMS Ezekiel Keating MD MD kdr Calderon, Audri RN RN Viky Alcantar RN RN Sintia Ham RN RN John Camacho
[2019-06-13] MEDS ORDERED: ONDANSETRON 4 MG/2 ML VIAL IV PRN (14:27)
[2019-06-13] MEDS ORDERED: D50W 25 GM/50 ML SYRINGE IV PRN (14:27)
[2019-06-13] MEDS ORDERED: GLUCAGON 1 MG/VIAL IM PRN (14:27)
[2019-06-13] MEDS ORDERED: VANCOMYCIN/NS 1 gm 1 GM/250 ML BAG IVPB SCH (14:30)
[2019-06-13] MEDS ORDERED: D5 0.45 NS 1,000 ML IV SCH (15:00)
[2019-06-13] MEDS ORDERED: PROMETHAZINE 25 MG/ML VIAL ONE (16:34)
[2019-06-13] MEDS: INSULIN -REGULAR HUMAN 50 UNIT/0.5 ML ML SQ SCH ×2 (17:54→21:00)
[2019-06-13 18:48] VITALS: BMI 49.3
[2019-06-13] MEDS: NA CHLORIDE 0.9% 1,000 ML IV SCH (19:55)
[2019-06-13] MEDS ORDERED: CEFEPIME 1 GM/VIAL IV SCH (21:00)
[2019-06-13] MEDS: PROMETHAZINE 25 MG/ML VIAL IV PRN (22:20)
[2019-06-13] MEDS: CEFEPIME/SWI 1gm 10 ML IVP SCH (22:21)
[2019-06-13] MEDS: FENTANYL CITR 100 MCG/2 ML IV PRN (22:22)
[2019-06-13] MEDS: HYDROCORTISONE SUC 100 MG INJ IV SCH (22:22)
--- NOTE | 2019-06-14 00:33 | HP ---
Date of Admission: 06/13/2019 Chief Complaint: Chills, blood in urine, burning sensation on urination, and feeling weak. History Of Present Illness: This is a 58-year-old male patient who has urethral stricture, gets stra ight catheterization of his bladder done 2 times a day, and has a history of recurrent urinary tract infection in the past. He was doing fine until last 2-3 days. He is having chills and lower abdomin al pain in the suprapubic region. Urine has a strong foul odor and cloudy looking urine with some gr oss hematuria type of appearance and some right posterior flank pain. He came into emergency room wi th all these complaints along with feeling weak and tired. After he was evaluated, he was admitted t o the [facility]. He is on chronic steroid therapy. His current maintenance dose is 15 mg p.o. daily. Review of Systems: Genitourinary: As mentioned above. Constitutional: As mentioned above. All other systems reviewed and negative. Medications: List reviewed. Allergies: TO DEMEROL, REMICADE, AND LATEX. Social History: Negative for smoking and alcohol use. Family History: Not pertinent. Past Medical History: Significant for paroxysmal atrial fibrillation, sleep apnea, hypertension, [place] disease, chronic steroid therapy, rheumatoid arthritis, ventral hernia, morbid obesity, urethral s tricture with recurrent urinary tract infection. Past Surgical History: Significant for surgery for lysis of adhesions with segmental resection of sm all bowel due to small bowel obstruction without perforation, abdominal wall abscess and surgery for that, surgery for ventral abdominal hernia, knee surgery, and Port-A-Cath placement. Physical Examination: Vital Signs: Last temperature 98.6, pulse 85, respiratory rate 16, blood pressure 188/54, oxygen sat uration 94%. Height 6 feet 2 inches, weight 384 pounds. General: Awake, alert, oriented, not in distress. HEENT: Head atraumatic, normocephalic. Conjunctivae nonerythematous. Sclerae white. Mouth, no thr ush or edema noted. Ears/Nose, no mass, lesion, discharge noted. Neck: Supple. No JVD, lymph nodes, bruit, thyromegaly noted. Lungs: Bilateral good equal air entry. Clear to auscultation. No rhonchi. No rales. Heart: Normal heart sounds, no murmur or gallop. Abdomen: The patient has a ventral hernia of abdominal wall with some presence of tenderness in the suprapubic region. Otherwise, bowel sounds normoactive. No guarding. No rigidity. No rebound tend erness. No hepatosplenomegaly. Extremities: No leg edema. No calf tenderness. Skin: No rash, ulcer, cellulitis. Lymphatics: No lymph node enlargement in neck, supraclavicular, infraclavicular region. Neuro: No focal neurological deficit. Chest: Unremarkable. External Genitalia: Deferred. Rectal: Deferred. Laboratory Data: White count 13.3, hemoglobin 12.6, platelets 262. Sodium 138, potassium 3.9, chlor manuel 103, bicarb 30, BUN 34, creatinine 1.30, glucose 226. Liver function tests unremarkable. Lipase 97. Urinalysis; 1+ esterase, 3+ protein, 3+ blood. CAT scan of abdomen and pelvis with contrast sh ows no evidence of any acute process. Complex ventral hernia similar to prior study. Impression: 1.Acute pyelonephritis. 2.Anemia, unspecified. 3.Hypertension. 4.Chronic steroid therapy. 5.Urethral stricture. 6.Paroxysmal atrial fibrillation. 7.Sleep apnea. 8.Crohn disease. 9.Rheumatoid arthritis. 10.Ventral hernia. Plan: We will admit patient to hospital for further evaluation and management of this problem. The patient is appropriate for inpatient and is expected to spend 2 midnights in hospital. Home medicati ons will be continued per order. We will give DVT prophylaxis per order. IV antibiotics will be sta rted, which are cefepime and vancomycin. Consult Pharmacy for vancomycin dose adjustment. Follow up on culture results and depending on the culture results, we will decide about culture-specific antib iotics. His Port-A-Cath was accessed after he came to the hospital. We will continue to use that an d we will go ahead and give IV steroids as he is on chronic steroid therapy. His maintenance dose is prednisone 15 mg daily lately, but we will give Solu-Cortef 100 mg every 6 hours. IV fluid will be given. We will monitor fingerstick blood sugar with sliding scale. We will get hemoglobin A1c with next visit, and I will see him tomorrow for followup. Details and plan of treatment discussed with t he patient. The patient responded well to fentanyl 50 mcg and Phenergan 12.5 mg done in the emergenc y room, and is requesting that to be continued right now for his pain in the suprapubic region. He a lso has some pain in his rectum and perineal region, especially while sitting, and has to keep in min d about possibility of prostatitis as a part of this involvement of urination. I will see him tomorr ow for followup. JORDAN/KENDALL Voice ID: [id number]
[2019-06-14] MEDS: HYDROCORTISONE SUC 100 MG INJ IV SCH ×5 (01:45→23:06)
[2019-06-14] MEDS: FENTANYL CITR 100 MCG/2 ML IV PRN ×6 (02:44→22:51)
[2019-06-14] MEDS: PROMETHAZINE 25 MG/ML VIAL IV PRN ×6 (02:44→22:52)
[2019-06-14 04:43] LABS: Absolute Lymphocytes (CBC) 1.1 K/uL (0.7-4.9); Basophils % 0.2 % (0-1.3); Hematocrit 37.8 % (39.6-49.0); Lymphocytes % 11.1 % (15.3-44.8); MPV 8.8 fL (7.6-11.3); RBC Red Blood Cell Count 3.78 M/uL (4.33-5.43)
[2019-06-14 04:47] LABS: Potassium 4.3 mmol/L (3.5-5.1)
[2019-06-14 05:24] LABS: Blood Morphology Comment NOT SEEN (NOT SEEN); Platelet Estimate ADEQ; Urine White Blood Cell Casts OK
[2019-06-14] MEDS: NA CHLORIDE 0.9% 1,000 ML IV SCH ×2 (06:28→20:33)
[2019-06-14] MEDS: VANCOMYCIN 1.5 GM in NA CHLORIDE 0.9% 500 ML IVPB SCH (10:00)
[2019-06-14] MEDS: INSULIN -REGULAR HUMAN 50 UNIT/0.5 ML ML SQ SCH ×4 (10:03→20:33)
[2019-06-14] MEDS: CEFEPIME/SWI 1gm 10 ML IVP SCH ×2 (10:04→20:33)
--- NOTE | 2019-06-15 02:04 | PN ---
Date of Progress Note: 06/14/2019 Subjective: The patient was seen this morning for followup. No new complaints or problems reported, except nausea problem and patient requested to increase the dose of Phenergan from 12.5 to 25 mg. P ain is well controlled with pain medications. Objective: Vital Signs: Reviewed. HEENT: Unremarkable. Lungs: Clear to auscultation. Heart: Sounds normal. Abdomen: Soft. Bowel sounds normal. No guarding, rigidity, or distention except suprapubic area te nderness present, unchanged from yesterday. No rebound tenderness. Extremities: No leg edema. Laboratory Data: Reviewed. Impression: 1.Acute pyelonephritis. 2.Hypertension. 3.Chronic steroid therapy. 4.Rule out diabetes mellitus. Plan: We will continue current antibiotic. Urine culture result pending. Depending on the culture result, we will decide about culture-specific antibiotics. Consult Physical Therapy. I will see him tomorrow for followup. Starting tomorrow, we will probably reduce dose of his IV steroid. JORDAN/MODL Voice ID: [id number] Report ID: [id number]
[2019-06-15] MEDS: FENTANYL CITR 100 MCG/2 ML IV PRN ×6 (02:51→22:10)
[2019-06-15] MEDS: VANCOMYCIN 1.5 GM in NA CHLORIDE 0.9% 500 ML IVPB SCH ×2 (02:51→19:32)
[2019-06-15] MEDS: PROMETHAZINE 25 MG/ML VIAL IV PRN ×5 (02:52→22:10)
[2019-06-15] MEDS: HYDROCORTISONE SUC 100 MG INJ IV SCH ×3 (06:41→17:51)
[2019-06-15] MEDS: CEFEPIME/SWI 1gm 10 ML IVP SCH ×2 (09:43→20:31)
[2019-06-15] MEDS: INSULIN -REGULAR HUMAN 50 UNIT/0.5 ML ML SQ SCH ×4 (09:43→20:30)
[2019-06-15] MEDS ORDERED: WATER FOR INJ,STERILE 10 ML ONE ×2 (11:37→16:35)
[2019-06-15] MEDS: NA CHLORIDE 0.9% 1,000 ML IV SCH (12:05)
--- NOTE | 2019-06-15 21:03 | PN ---
Date of Progress Note: 06/15/2019 Subjective: Patient was seen this morning for followup. He overall feels better. Has nausea, but n o vomiting. Suprapubic pain has improved. Pain medication seems to control it well. Objective: Vital Signs: Reviewed. HEENT: Unremarkable. Lungs: Clear to auscultation. Heart: Sounds normal. Abdomen: Soft. Bowel sounds normal. No guarding, rigidity, tenderness, distention. Extremities: No leg edema. Laboratory Data: Reviewed. Urine culture growing mixed shankar. Impression: 1.Acute pyelonephritis. 2.Chronic steroid therapy. 3.Hypertension. 4.Urethral stricture. Plan: We will continue current medication, continue current antibiotic. Patient did take Cipro at h ome for a few days before he came into the emergency room and that may be the reason why culture is n ot actually growing any specific bacteria. Cipro really did not take care of his infection and he st ill ended up in the emergency room requiring this hospital admission. So, at this point since he is improving with current IV antibiotics, we will continue them and we will consider possible discharge sometime over the weekend. Details were discussed with the patient and the patient's . JORDAN/MODL Voice ID: [id number] Report ID: [id number]
[2019-06-15] MEDS: ACETAMINOPHEN 500 MG TAB PO PRN (23:15)
[2019-06-16] MEDS: NA CHLORIDE 0.9% 1,000 ML IV SCH ×3 (00:23→14:56)
[2019-06-16] MEDS: FENTANYL CITR 100 MCG/2 ML IV PRN ×6 (02:18→22:17)
[2019-06-16] MEDS: PROMETHAZINE 25 MG/ML VIAL IV PRN ×6 (02:19→22:17)
[2019-06-16 06:14] LABS: Absolute Lymphocytes (CBC) 2.5 K/uL (0.7-4.9); Basophils % 0.5 % (0-1.3); Hematocrit 38.1 % (39.6-49.0); Lymphocytes % 22.8 % (15.3-44.8); MPV 8.2 fL (7.6-11.3); RBC Red Blood Cell Count 3.86 M/uL (4.33-5.43)
[2019-06-16 06:16] LABS: BUN Blood Urea Nitrogen 18 mg/dL (7-18); Bicarbonate 36 mmol/L (21-32); Glucose Level 124 mg/dL (74-106); Potassium 3.6 mmol/L (3.5-5.1); Sodium Level 146 mmol/L (136-145)
[2019-06-16] MEDS: INSULIN -REGULAR HUMAN 50 UNIT/0.5 ML ML SQ SCH ×4 (07:30→20:52)
[2019-06-16] MEDS: CEFEPIME/SWI 1gm 10 ML IVP SCH ×2 (08:15→21:02)
[2019-06-16] MEDS: predniSONE 20 MG TAB PO SCH ×2 (08:15→20:53)
[2019-06-16] MEDS ORDERED: HYDROCODONE/APAP 10/325 TAB PO PRN (08:34)
[2019-06-16] MEDS: acetaZOLAMIDE 250 MG TAB PO SCH (09:56)
[2019-06-16] MEDS: PANTOPRAZOLE 40MG TABLET PO SCH (09:56)
[2019-06-16] MEDS: DULOXETINE 20 MG CAP PO SCH (09:56)
[2019-06-16] MEDS: FOLIC ACID 1 MG TABLET PO SCH (09:56)
[2019-06-16] MEDS: TAMSULOSIN 0.4 MG SR CAP PO SCH (09:56)
[2019-06-16] MEDS: RIVAROXABAN 20 MG TABLET PO SCH (09:56)
[2019-06-16] MEDS: CHLORTHALIDONE 25 MG TAB PO SCH (09:56)
[2019-06-16] MEDS: SOTALOL HCL 80 MG TAB PO SCH ×2 (09:57→20:53)
[2019-06-16] MEDS: SPIRONOLACTONE 25 MG TABLET PO SCH ×2 (09:57→20:53)
[2019-06-16] MEDS: VANCOMYCIN 1.5 GM in NA CHLORIDE 0.9% 500 ML IVPB SCH (14:53)
--- NOTE | 2019-06-16 22:18 | PN ---
Date of Progress Note: 06/16/2019 Subjective: Patient was seen this morning for followup. No new complaints or problems reported by ye ricketts. His nausea and flank pain are getting better. Objective: Vital Signs: Reviewed. HEENT: Unremarkable. Lungs: Clear to auscultation. Heart: Sounds normal. Abdomen: Soft. Bowel sounds normal. No guarding, rigidity, distention. Some suprapubic tenderness present, but overall better than before. Extremities: No leg edema. Laboratory Data: White count 11.1, hemoglobin 12.3, platelets 251. Sodium 146, potassium 3.6, chlor manuel 107, bicarb 36, BUN 18, creatinine 0.87, glucose 127. Urine culture came back positive for MRSA. Impression: 1.Acute pyelonephritis, organism methicillin-resistant Staphylococcus aureus. 2.Urethral stricture. 3.Chronic steroid therapy. 4.Hypertension. Plan: We will continue current medications. Continue patient's sotalol and Xarelto per order along with other home medications. We will continue current antibiotics. As of today, we will start oral prednisone 20 mg twice a day and discontinue IV steroid. Physical therapy to continue to work with patient. I will see him tomorrow for followup. JORDAN/MODL Voice ID: [id number] Report ID: [id number]
[2019-06-17] MEDS: PROMETHAZINE 25 MG/ML VIAL IV PRN ×7 (02:13→21:56)
[2019-06-17] MEDS: FENTANYL CITR 100 MCG/2 ML IV PRN ×6 (02:14→21:56)
[2019-06-17] MEDS: NA CHLORIDE 0.9% 1,000 ML IV SCH (06:09)
[2019-06-17] MEDS: VANCOMYCIN 1.5 GM in NA CHLORIDE 0.9% 500 ML IVPB SCH (08:13)
[2019-06-17] MEDS ORDERED: FUROSEMIDE 40 MG/4 ML VIAL IV ONE (08:21)
[2019-06-17] MEDS: INSULIN -REGULAR HUMAN 50 UNIT/0.5 ML ML SQ SCH ×4 (08:42→21:57)
[2019-06-17] MEDS: acetaZOLAMIDE 250 MG TAB PO SCH (08:43)
[2019-06-17] MEDS: SPIRONOLACTONE 25 MG TABLET PO SCH ×2 (08:43→21:55)
[2019-06-17] MEDS: CHLORTHALIDONE 25 MG TAB PO SCH (08:43)
[2019-06-17] MEDS: SOTALOL HCL 80 MG TAB PO SCH ×2 (08:44→21:56)
[2019-06-17] MEDS: FOLIC ACID 1 MG TABLET PO SCH (08:44)
[2019-06-17] MEDS: TAMSULOSIN 0.4 MG SR CAP PO SCH (08:44)
[2019-06-17] MEDS: PANTOPRAZOLE 40MG TABLET PO SCH (08:44)
[2019-06-17] MEDS: CEFEPIME/SWI 1gm 10 ML IVP SCH ×2 (08:45→21:55)
[2019-06-17] MEDS: predniSONE 20 MG TAB PO SCH ×2 (08:45→21:56)
[2019-06-17] MEDS: RIVAROXABAN 20 MG TABLET PO SCH (08:45)
[2019-06-17] MEDS: DULOXETINE 20 MG CAP PO SCH (08:45)
[2019-06-17] MEDS ORDERED: MAGNESIUM HYDROXIDE 8% 30 ML PO PRN (09:39)
--- NOTE | 2019-06-17 10:14 | RAD REPORT ---
EXAM DESCRIPTION: Martha Santos And [place] (2 Views)06/17/2019 9:58 am CLINICAL HISTORY: Shortness breath COMPARISON: February 2019 FINDINGS: The lungs appear clear of acute infiltrate. The heart is normal size. Opacities along the lateral hemithoraces bilaterally represent fat A central venous line has tip in the proximal superior vena cava IMPRESSION: No acute abnormalities displayed
[2019-06-17] MEDS ORDERED: ALBUTEROL 2.5 MG/3 ML NEB SOL NEB PRN (11:49)
--- NOTE | 2019-06-17 21:22 | PN ---
Date of Progress Note: 06/17/2019 Subjective: The patient was seen this morning for followup. He was sitting in wheelchair when I saw him prior to my arrival. Nurse informed me the patient was having progressively increasing shortnes s of breath, so stat chest x-ray was ordered and Lasix 40 mg IV x1 dose was ordered. When I saw him, he informed me that as of last night, he started to have some shortness of breath and he had to stay upright in the bed and that actually was helping him with his breathing problem. Objective: Vital Signs: Reviewed. HEENT: Unremarkable. Lungs: Bilateral good equal air entry. Presence of rhonchi noted in both lower lung del rosario, not in respiratory distress. Heart: Sounds normal. Abdomen: Soft. Bowel sounds normal. No guarding, rigidity, tenderness, or distention. Extremities: No leg edema. Laboratory Data: Chest x-ray done today was unremarkable. No acute changes noted. Impression: 1.Acute pyelonephritis, organism methicillin-resistant Staphylococcus aureus. 2.Chronic steroid therapy. 3.Hypertension. 4.Anemia, unspecified. 5.Dyspnea. Plan: I am concerned about possibility of volume overload. IV fluid was discontinued for Lasix 40 m g IV x1 dose was given. We will give nebulizer treatment as needed for shortness of breath. Continue other current medications. I will s ee him tomorrow for followup. JORDAN/MODL Voice ID: [id number] Report ID: [id number]
[2019-06-18] MEDS: ACETAMINOPHEN 500 MG TAB PO PRN (01:28)
[2019-06-18] MEDS: FENTANYL CITR 100 MCG/2 ML IV PRN ×6 (01:56→22:04)
[2019-06-18] MEDS: PROMETHAZINE 25 MG/ML VIAL IV PRN ×6 (01:57→22:05)
[2019-06-18] MEDS: VANCOMYCIN 1.5 GM in NA CHLORIDE 0.9% 500 ML IVPB SCH ×2 (01:57→22:03)
[2019-06-18 06:02] LABS: Absolute Lymphocytes (CBC) 1.7 K/uL (0.7-4.9); Basophils % 0.2 % (0-1.3); Hematocrit 42.3 % (39.6-49.0); Lymphocytes % 13.4 % (15.3-44.8); MPV 8.7 fL (7.6-11.3); RBC Red Blood Cell Count 4.23 M/uL (4.33-5.43)
[2019-06-18 06:18] LABS: Potassium 4.4 mmol/L (3.5-5.1)
[2019-06-18] MEDS: INSULIN -REGULAR HUMAN 50 UNIT/0.5 ML ML SQ SCH ×4 (08:50→21:01)
[2019-06-18] MEDS: predniSONE 20 MG TAB PO SCH ×2 (08:51→21:00)
[2019-06-18] MEDS: SOTALOL HCL 80 MG TAB PO SCH ×2 (08:51→21:00)
[2019-06-18] MEDS: PANTOPRAZOLE 40MG TABLET PO SCH (08:51)
[2019-06-18] MEDS: acetaZOLAMIDE 250 MG TAB PO SCH (08:51)
[2019-06-18] MEDS: TAMSULOSIN 0.4 MG SR CAP PO SCH (08:51)
[2019-06-18] MEDS: SPIRONOLACTONE 25 MG TABLET PO SCH ×2 (08:52→20:59)
[2019-06-18] MEDS: RIVAROXABAN 20 MG TABLET PO SCH (08:52)
[2019-06-18] MEDS: FOLIC ACID 1 MG TABLET PO SCH (08:53)
[2019-06-18] MEDS: DULOXETINE 20 MG CAP PO SCH (08:53)
[2019-06-18] MEDS: CHLORTHALIDONE 25 MG TAB PO SCH (08:53)
[2019-06-18] MEDS: CEFEPIME/SWI 1gm 10 ML IVP SCH ×2 (08:56→20:59)
[2019-06-18] MEDS ORDERED: FUROSEMIDE 40 MG/4 ML VIAL IV ONE (15:37)
--- NOTE | 2019-06-18 16:00 | PN ---
Date of Progress Note: 06/18/2019 Subjective: Patient was seen this morning for followup. No new complaints or problems reported by t he patient, lying in bed, not in distress. Objective: Vital Signs: Reviewed. HEENT: Unremarkable. Lungs: Clear to auscultation. HEART: Sounds normal. Abdomen: Soft. Bowel sounds normal. No guarding, rigidity, tenderness, or distention. Extremities: No leg edema. Laboratory Data: White count 12.6, hemoglobin 13.3, platelets 246. Sodium 142, potassium 4.4, chlor manuel 105, bicarb 33, BUN 26, creatinine 1, glucose 212. Hemoglobin A1c pending. Impression: 1.Acute pyelonephritis. 2.Hypertension. 3.Dyspnea. Plan: Patient responded well to 40 mg of Lasix IV yesterday. Shortness of breath got better, not co mpletely back to normal. He still had to stay upright during sleep. He kept his bed approximately a t 30 degrees angle last night compared to 45 degree angle night before. He will benefit from another dose of Lasix today, which we will order it. Continue current antibiotics. Tomorrow, we will have social welfare research worker start working with the patient to help make arrangements for IV vancomycin therapy to b e given at home for 1 week using current dose and once that arrangement gets completed, patient will be able to go home. JORDAN/KENDALL Voice ID: [id number] Report ID: [id number]
[2019-06-19] MEDS: PROMETHAZINE 25 MG/ML VIAL IV PRN ×6 (02:05→21:14)
[2019-06-19] MEDS: FENTANYL CITR 100 MCG/2 ML IV PRN ×6 (02:05→21:14)
[2019-06-19 06:02] LABS: Absolute Lymphocytes (CBC) 1.6 K/uL (0.7-4.9); Basophils % 0.3 % (0-1.3); Hematocrit 41.1 % (39.6-49.0); Lymphocytes % 11.1 % (15.3-44.8); MPV 8.7 fL (7.6-11.3); RBC Red Blood Cell Count 4.13 M/uL (4.33-5.43)
[2019-06-19 07:14] LABS: Magnesium 2.3 mg/dL (1.8-2.4); Potassium 4.4 mmol/L (3.5-5.1)
[2019-06-19] MEDS: RIVAROXABAN 20 MG TABLET PO SCH (07:50)
[2019-06-19] MEDS: PANTOPRAZOLE 40MG TABLET PO SCH (07:50)
[2019-06-19] MEDS: DULOXETINE 20 MG CAP PO SCH (07:51)
[2019-06-19] MEDS: SOTALOL HCL 80 MG TAB PO SCH ×2 (07:51→21:13)
[2019-06-19] MEDS: SPIRONOLACTONE 25 MG TABLET PO SCH ×2 (07:51→21:17)
[2019-06-19] MEDS: CHLORTHALIDONE 25 MG TAB PO SCH (07:51)
[2019-06-19] MEDS: predniSONE 20 MG TAB PO SCH ×2 (07:52→21:13)
[2019-06-19] MEDS: acetaZOLAMIDE 250 MG TAB PO SCH (07:52)
[2019-06-19] MEDS: TAMSULOSIN 0.4 MG SR CAP PO SCH (07:52)
[2019-06-19] MEDS: FOLIC ACID 1 MG TABLET PO SCH (07:53)
[2019-06-19] MEDS: INSULIN -REGULAR HUMAN 50 UNIT/0.5 ML ML SQ SCH ×4 (07:53→21:13)
[2019-06-19] MEDS: CEFEPIME/SWI 1gm 10 ML IVP SCH ×2 (07:54→21:15)
[2019-06-19 09:07] LABS: Urine Appearance CLEAR; Urine Bilirubin NEGATIVE (NEG); Urine Blood NEGATIVE (NEG); Urine Color YELLOW; Urine Glucose 1+ (NEG); Urine Protein NEGATIVE (NEG); Urine Urobilinogen 0.2 mg/dL (0.2-1.0); Urine pH 6.5 (5.0-7.0)
[2019-06-19 09:18] LABS: Urine Bacteria NONE SEEN /HPF (NONE SEEN); Urine Culture Reflex Order NOT NEEDED; Urine Yeast PRESENT (NONE SEEN); Urine Yeast with Hyphae PRESENT
--- NOTE | 2019-06-19 09:49 | RAD REPORT ---
EXAM DESCRIPTION: RAD - Chest Pa And Lat (2 Views) - 06/19/2019 9:37 am CLINICAL HISTORY: Leukocytosis COMPARISON: June 17 TECHNIQUE: PA and lateral views of the chest were obtained. FINDINGS: The lungs are normal volume. No new or progressive right lung field finding. Prominent le ft pericardial fat pad is present. There may be minimal scarring or atelectasis in the medial left ba se. An acute lung base process is doubtful. No significant left lung field finding. Trachea is midlin e. Patient has old rib trauma changes on the left creating a pleural thickening appearance. Right-pradeep e venous access catheter remains in place. Heart size is normal and central vasculature is within nor mal limits. No pleural effusion or pneumothorax seen. No acute bony finding noted. No aortic abnor mality. IMPRESSION: No acute cardiopulmonary process. Above detailed chest findings are not substantially different from the comparison.
--- NOTE | 2019-06-19 12:20 | RAD REPORT ---
EXAM DESCRIPTION: CT - Abdomen Pelvis Wo Contrast - 06/19/2019 11:56 am CLINICAL HISTORY: Abdominal pain COMPARISON: June 13, 2019 TECHNIQUE: Computed axial tomography of the abdomen and pelvis was obtained. IV and oral contrast we re not requested. All CT scans are performed using dose optimization technique as appropriate and may include automated exposure control or mA/KV adjustment according to patient size. FINDINGS: The evaluation of solid organs, vessels and bowel is limited secondary to the lack of con trast administration. The liver, spleen, pancreas, and adrenals appear grossly normal. Very small left kidney with cortical thinning. Small right renal cysts without hydronephrosis. Bilateral hip arthroplasties Large ventral hernia containing stomach, large and small bowel again demonstrated. No evidence of diverticulitis. No bowel obstruction. IMPRESSION: No significant change since June 13, 2019. No acute abnormality displayed
[2019-06-19] MEDS: VANCOMYCIN 1.5 GM in NA CHLORIDE 0.9% 500 ML IVPB SCH (13:54)
--- NOTE | 2019-06-19 19:28 | PN ---
Date of Progress Note: 06/19/2019 Subjective: Patient was seen this morning for followup. No new complaints or problems reported by t he patient lying in bed, not in distress except complaining of increased lower abdominal pain in the suprapubic region. Objective: Vital Signs: Reviewed. HEENT: Unremarkable. Lungs: Clear to auscultation. No rhonchi or rales. Heart: Sounds normal. Abdomen: Soft. Bowel sounds normal. No guarding, rigidity. Presence of tenderness in lower abdome n. No rebound or tenderness. Extremities: No leg edema. Laboratory Data: White count has gone up to 14,000, yesterday was 12.6, day before yesterday 11.1. Hemoglobin today 13.2, platelets 258. Sodium 139, potassium 4.4, chloride 99, bicarb 35. BUN 29, cr eatinine 1.08, glucose 294. Hemoglobin A1c from yesterday is 8.0. Impression: 1.Acute pyelonephritis, organism methicillin-resistant Staphylococcus aureus. 2.Leukocytosis. 3.Anemia. 4.Type 2 diabetes mellitus. Plan: Patient has leukocytosis today as noted and count is higher than yesterday. This could be lat e reaction from his IV steroid, but one has to definitely keep in mind about infection with different type of bacteria that is not responding to current IV antibiotics. Currently, he is on cefepime and vancomycin. We will continue this antibiotic. I have ordered another urinalysis and urine culture to be done and straight cath specimen will be obtained when the patient's will perform straight cath today. In last few days, the patient informed me that he was getting only catheterized once a d ay because of the pain involved with that, but I have advised that he should minimum do it 2 times a day. He does not have any flank pain. We will do CAT scan of abdomen and pelvis without IV contrast and the chest x-ray was done, which came b ack unchanged from before. JORDAN/MODL Voice ID: [id number] Report ID: [id number]
[2019-06-20] MEDS: FENTANYL CITR 100 MCG/2 ML IV PRN ×6 (01:10→20:47)
[2019-06-20] MEDS: PROMETHAZINE 25 MG/ML VIAL IV PRN ×6 (01:11→20:47)
[2019-06-20 05:36] LABS: Absolute Lymphocytes (CBC) 1.8 K/uL (0.7-4.9); Basophils % 0.3 % (0-1.3); Hematocrit 42.3 % (39.6-49.0); Lymphocytes % 12.6 % (15.3-44.8); MPV 8.8 fL (7.6-11.3); RBC Red Blood Cell Count 4.21 M/uL (4.33-5.43)
[2019-06-20 05:53] LABS: Albumin 3.4 g/dL (3.4-5.0); Bilirubin Total 0.4 mg/dL (0.2-1.0); Magnesium 2.2 mg/dL (1.8-2.4); Potassium 4.3 mmol/L (3.5-5.1); Protein, Total 6.6 g/dL (6.4-8.2)
[2019-06-20 08:03] LABS: Blood Morphology Comment NOT SEEN (NOT SEEN); Platelet Estimate ADEQ
[2019-06-20] MEDS: INSULIN -REGULAR HUMAN 50 UNIT/0.5 ML ML SQ SCH ×4 (08:57→20:45)
[2019-06-20] MEDS: VANCOMYCIN 1.5 GM in NA CHLORIDE 0.9% 500 ML IVPB SCH (09:41)
[2019-06-20] MEDS: SOTALOL HCL 80 MG TAB PO SCH ×2 (09:41→20:46)
[2019-06-20] MEDS: PANTOPRAZOLE 40MG TABLET PO SCH (09:43)
[2019-06-20] MEDS: CEFEPIME/SWI 1gm 10 ML IVP SCH ×2 (09:43→20:48)
[2019-06-20] MEDS: predniSONE 20 MG TAB PO SCH ×2 (09:44→20:46)
[2019-06-20] MEDS: SPIRONOLACTONE 25 MG TABLET PO SCH ×2 (09:44→20:45)
[2019-06-20] MEDS: TAMSULOSIN 0.4 MG SR CAP PO SCH (09:44)
[2019-06-20] MEDS: FOLIC ACID 1 MG TABLET PO SCH (09:44)
[2019-06-20] MEDS: SITAGLIPTIN PHOS 100 MG TAB PO SCH (09:44)
[2019-06-20] MEDS: CHLORTHALIDONE 25 MG TAB PO SCH (09:45)
[2019-06-20] MEDS: DULOXETINE 20 MG CAP PO SCH (09:49)
[2019-06-20] MEDS: acetaZOLAMIDE 250 MG TAB PO SCH (09:49)
[2019-06-20] MEDS: RIVAROXABAN 20 MG TABLET PO SCH (09:51)
--- NOTE | 2019-06-21 00:23 | PN ---
Date of Progress Note: 06/20/2019 Subjective: Patient was seen this morning for followup. Overall, he feels little better today than yesterday. No new complaints or problems reported. Objective: Vital Signs: Reviewed. HEENT: Unremarkable. Lungs: Clear to auscultation. Heart: Sounds normal. Abdomen: Soft. Bowel sounds normal. No guarding, rigidity, distention. Presence of suprapubic tenderness, better today than yesterday. Extremities: No leg edema. Laboratory Data: White count 14, same as yesterday; hemoglobin 13.5, platelets 254. Sodium 138, potassium 4.3, chloride 99, bicarb 32, BUN 27, creatinine 1.17 , glucose 376. Impression: 1. Acute pyelonephritis, organism methicillin-resistant Staphylococcus aureus. 2. Type 2 diabetes mellitus, uncontrolled. 3. Anemia. Plan: We will continue current medications and antibiotics. We will start Januvia as of today for diabetes and the patient's elevated WBC count I believe is likely due to IV steroid use that we were giving it to him for few days and currently, he is on prednisone 20 mg twice a day. Possible discharge to go home tomorrow or day after tomorrow depending on the patient's blood work and culture results. JORDAN/MODL Voice ID: [id number] Report ID: [id number] VERONICA
[2019-06-21] MEDS: FENTANYL CITR 100 MCG/2 ML IV PRN ×6 (00:53→20:50)
[2019-06-21] MEDS: VANCOMYCIN 1.5 GM in NA CHLORIDE 0.9% 500 ML IVPB SCH ×2 (00:53→20:47)
[2019-06-21] MEDS: PROMETHAZINE 25 MG/ML VIAL IV PRN ×6 (00:54→20:50)
[2019-06-21 08:27] LABS: Absolute Lymphocytes (CBC) 2.2 K/uL (0.7-4.9); Basophils % 0.5 % (0-1.3); Hematocrit 42.7 % (39.6-49.0); Lymphocytes % 14.4 % (15.3-44.8); MPV 8.6 fL (7.6-11.3)
[2019-06-21] MEDS: SITAGLIPTIN PHOS 100 MG TAB PO SCH (08:35)
[2019-06-21] MEDS: SOTALOL HCL 80 MG TAB PO SCH ×2 (08:36→20:48)
[2019-06-21] MEDS: TAMSULOSIN 0.4 MG SR CAP PO SCH (08:36)
[2019-06-21] MEDS: SPIRONOLACTONE 25 MG TABLET PO SCH ×2 (08:37→20:49)
[2019-06-21] MEDS: acetaZOLAMIDE 250 MG TAB PO SCH (08:38)
[2019-06-21] MEDS: predniSONE 20 MG TAB PO SCH ×2 (08:39→20:49)
[2019-06-21] MEDS: FOLIC ACID 1 MG TABLET PO SCH (08:39)
[2019-06-21] MEDS: DULOXETINE 20 MG CAP PO SCH (08:39)
[2019-06-21] MEDS: CHLORTHALIDONE 25 MG TAB PO SCH (08:39)
[2019-06-21] MEDS: INSULIN -REGULAR HUMAN 50 UNIT/0.5 ML ML SQ SCH ×4 (08:48→20:46)
[2019-06-21] MEDS: RIVAROXABAN 20 MG TABLET PO SCH (09:05)
[2019-06-21] MEDS: CEFEPIME/SWI 1gm 10 ML IVP SCH (09:05)
[2019-06-21] MEDS: PANTOPRAZOLE 40MG TABLET PO SCH (09:05)
[2019-06-21] MEDS ORDERED: Meropenem 1000 MG/VIAL IV SCH (11:00)
[2019-06-21] MEDS: Meropenem 1,000 MG in NA CHLORIDE 0.9% 100 ML IV SCH ×2 (11:41→20:48)
[2019-06-22] MEDS: PROMETHAZINE 25 MG/ML VIAL IV PRN ×6 (00:52→20:25)
[2019-06-22] MEDS: FENTANYL CITR 100 MCG/2 ML IV PRN ×6 (00:52→20:25)
--- NOTE | 2019-06-22 01:14 | PN ---
Date of Progress Note: 06/21/2019 Subjective: Patient was seen this morning for followup. No new complaints or problems reported by ye ricketts. Abdominal pain in the lower abdomen and suprapubic region is present, but better than a coup le of days ago. Objective: Vital Signs: Reviewed. HEENT: Examination unremarkable. Lungs: Bilateral good equal air entry. Clear to auscultation. Heart: Sounds normal. Abdomen: Soft. Bowel sounds normal. No guarding, rigidity, tenderness, or distention. Extremities: No leg edema. Laboratory Data: Today's CBC shows white count 15. Impression: 1.Acute pyelonephritis, organism methicillin-resistant Staphylococcus aureus. 2.Urethral stricture. 3.Hypertension. 4.Chronic steroid therapy. Plan: We will continue prednisone 20 mg twice a day. Patient's WBC count is slowly going up, yester day was 14, today is 15. So, at this point, we definitely need to rule out any other underlying infe ction. So far cultures found to be positive for MRSA. He is on appropriate culture specific antibio tic, which is vancomycin. Other antibiotic, he was on, so far was cefepime, which I have discontinue d today and will start meropenem. I will see him tomorrow for followup. We will repeat blood work tomorrow. JORDAN/MODL Voice ID: [id number] Report ID: [id number]
[2019-06-22 07:16] LABS: Absolute Lymphocytes (CBC) 1.8 K/uL (0.7-4.9); Basophils % 0.2 % (0-1.3); Hematocrit 42.1 % (39.6-49.0); Lymphocytes % 12.7 % (15.3-44.8); MPV 8.6 fL (7.6-11.3); RBC Red Blood Cell Count 4.24 M/uL (4.33-5.43)
[2019-06-22 07:46] LABS: Albumin 3.3 g/dL (3.4-5.0); Bilirubin Total 0.4 mg/dL (0.2-1.0); Magnesium 2.1 mg/dL (1.8-2.4); Potassium 4.4 mmol/L (3.5-5.1); Protein, Total 6.8 g/dL (6.4-8.2)
[2019-06-22] MEDS: RIVAROXABAN 20 MG TABLET PO SCH (08:48)
[2019-06-22] MEDS: SPIRONOLACTONE 25 MG TABLET PO SCH ×2 (08:48→20:26)
[2019-06-22] MEDS: CHLORTHALIDONE 25 MG TAB PO SCH (08:49)
[2019-06-22] MEDS: predniSONE 20 MG TAB PO SCH ×2 (08:49→20:26)
[2019-06-22] MEDS: acetaZOLAMIDE 250 MG TAB PO SCH (08:49)
[2019-06-22] MEDS: PANTOPRAZOLE 40MG TABLET PO SCH (08:49)
[2019-06-22] MEDS: SITAGLIPTIN PHOS 100 MG TAB PO SCH (08:49)
[2019-06-22] MEDS: FOLIC ACID 1 MG TABLET PO SCH (08:49)
[2019-06-22] MEDS: INSULIN -REGULAR HUMAN 50 UNIT/0.5 ML ML SQ SCH ×4 (08:50→20:28)
[2019-06-22] MEDS: TAMSULOSIN 0.4 MG SR CAP PO SCH (08:50)
[2019-06-22] MEDS: DULOXETINE 20 MG CAP PO SCH (08:50)
[2019-06-22] MEDS: Meropenem 1,000 MG in NA CHLORIDE 0.9% 100 ML IV SCH ×2 (08:50→20:27)
[2019-06-22] MEDS: SOTALOL HCL 80 MG TAB PO SCH ×2 (08:54→20:26)
[2019-06-22] MEDS: VANCOMYCIN 1.5 GM in NA CHLORIDE 0.9% 500 ML IVPB SCH (15:28)
[2019-06-23] MEDS: FENTANYL CITR 100 MCG/2 ML IV PRN ×6 (00:50→21:03)
[2019-06-23] MEDS: PROMETHAZINE 25 MG/ML VIAL IV PRN ×6 (00:51→21:06)
--- NOTE | 2019-06-23 01:43 | PN ---
Date of Progress Note: 06/22/2019 Subjective: Patient was seen this morning for followup. No new complaints or problems reported. Hi s abdominal pain is somewhat better compared to yesterday. Has nausea, but no vomiting. Objective: Vital Signs: Reviewed. HEENT: Unremarkable. Lungs: Clear to auscultation. Heart: Sounds normal. Abdomen: Soft. Bowel sounds normal. No guarding, rigidity, distention. Mild tenderness in suprapu bic region, overall better than yesterday. Extremities: No leg edema. Laboratory Data: White count 14.1, hemoglobin 13.6, platelets 240. Sodium 138, potassium 4.4, chlor manuel 101, bicarb 33, BUN 32, creatinine 1.02, glucose 265. Impression: 1.Acute pyelonephritis, organism methicillin-resistant Staphylococcus aureus. 2.Ventral abdominal wall hernia. 3.Paroxysmal atrial fibrillation. 4.Chronic anticoagulation therapy. 5.Type 2 diabetes mellitus, uncontrolled. Plan: We will increase the dose of Januvia from 50 to 100 mg daily. Continue vancomycin and meropen um today. WBC count has slightly improved compared to yesterday. We will repeat blood work tomorrow and plan is to keep him in the hospital over the weekend and next week on Wednesday, we will decide about discharge planning and when to discharge him next week. I will see h im tomorrow for followup. JORDAN/MODL Voice ID: [id number] Report ID: [id number]
[2019-06-23 05:42] LABS: Magnesium 2.3 mg/dL (1.8-2.4); Potassium 4.5 mmol/L (3.5-5.1)
[2019-06-23 05:44] LABS: Absolute Lymphocytes (CBC) 1.8 K/uL (0.7-4.9); Basophils % 0.3 % (0-1.3); Hematocrit 41.8 % (39.6-49.0); Lymphocytes % 12.5 % (15.3-44.8); MPV 8.9 fL (7.6-11.3); RBC Red Blood Cell Count 4.22 M/uL (4.33-5.43)
[2019-06-23] MEDS: INSULIN -REGULAR HUMAN 50 UNIT/0.5 ML ML SQ SCH ×4 (08:30→21:05)
[2019-06-23] MEDS: SOTALOL HCL 80 MG TAB PO SCH ×2 (08:31→21:04)
[2019-06-23] MEDS: METFORMIN HCL 500 MG TAB PO SCH ×2 (08:31→16:49)
[2019-06-23] MEDS: DULOXETINE 20 MG CAP PO SCH (08:31)
[2019-06-23] MEDS: PANTOPRAZOLE 40MG TABLET PO SCH (08:31)
[2019-06-23] MEDS: SITAGLIPTIN PHOS 100 MG TAB PO SCH (08:32)
[2019-06-23] MEDS: acetaZOLAMIDE 250 MG TAB PO SCH (08:32)
[2019-06-23] MEDS: RIVAROXABAN 20 MG TABLET PO SCH (08:32)
[2019-06-23] MEDS: TAMSULOSIN 0.4 MG SR CAP PO SCH (08:32)
[2019-06-23] MEDS: SPIRONOLACTONE 25 MG TABLET PO SCH ×2 (08:32→21:04)
[2019-06-23] MEDS: FOLIC ACID 1 MG TABLET PO SCH (08:32)
[2019-06-23] MEDS: VANCOMYCIN 1.5 GM in NA CHLORIDE 0.9% 500 ML IVPB SCH (08:33)
[2019-06-23] MEDS: Meropenem 1,000 MG in NA CHLORIDE 0.9% 100 ML IV SCH ×2 (08:33→21:03)
[2019-06-23] MEDS: predniSONE 20 MG TAB PO SCH (08:33)
[2019-06-23] MEDS: CHLORTHALIDONE 25 MG TAB PO SCH (08:33)
[2019-06-23] MEDS ORDERED: NA CHLORIDE 0.9% 250 ML IV PRN (12:32)
[2019-06-23] MEDS ORDERED: NA CHLORIDE 0.9% 500 ML IV ONE (12:41)
--- NOTE | 2019-06-23 19:40 | PN ---
Date of Progress Note: 06/23/2019 Subjective: Patient was seen this morning for followup. He was not in any distress. Denied any new complaints. Continues to have abdominal pain, left lower quadrant and suprapubic area, but it is so mewhat better today and in the last 2-3 days it is slowly improving as he reported. Objective: HEENT: Unremarkable. Lungs: Clear to auscultation. No rhonchi. No rales. Heart: Sounds normal. Abdomen: Bowel sounds normal. No guarding, rigidity, or distention. Mild tenderness in the left lo wer quadrant and suprapubic area, but it is better today compared to last couple of days. Anterior a bdominal wall ventral hernia present. No evidence of any obstruction of the hernia. Extremities: No leg edema. Laboratory Data: White count 14.2 today, yesterday was 14.1, day before it was 15.3. Hemoglobin 13. 6, platelets 248. Sodium 139, potassium 4.5, chloride 101, bicarb 34, BUN 33, creatinine 1, glucose 253. Impression: 1.Acute pyelonephritis, organism methicillin-resistant Staphylococcus aureus. 2.Type 2 diabetes mellitus, uncontrolled. 3.Chronic steroid therapy. 4.Leukocytosis. 5.Abdominal pain. 6.Abdominal ventral hernia. Plan: We will go ahead and continue meropenem and vancomycin. There is no evidence of any abdominal wall infection nor evidence of any obstruction of the ventral hernia. Culture so far negative, exce pt the initial culture of MRSA. Repeat cultures are negative. We will reduce prednisone from 20 mg twice a day to 20 mg once a day and plan is to follow up on a daily basis with these IV antibiotics. We are hoping that with time and continuation of this combination of antibiotic therapy, his conditi on will improve well enough to go home next week. For diabetes, we will continue Januvia at 100 mg d aily and start metformin 500 mg twice a day. JORDAN/MODL Voice ID: [id number] Report ID: [id number]
[2019-06-24] MEDS: FENTANYL CITR 100 MCG/2 ML IV PRN ×5 (01:59→20:05)
[2019-06-24] MEDS: PROMETHAZINE 25 MG/ML VIAL IV PRN ×6 (02:00→22:22)
[2019-06-24] MEDS: VANCOMYCIN 1.5 GM in NA CHLORIDE 0.9% 500 ML IVPB SCH ×2 (03:11→20:04)
[2019-06-24] MEDS ORDERED: PROMETHAZINE 25 MG/ML VIAL IV ONE ×2 (04:18→22:03)
[2019-06-24] MEDS ORDERED: FENTANYL CITR 100 MCG/2 ML IV ONE (04:18)
[2019-06-24] MEDS: INSULIN -REGULAR HUMAN 50 UNIT/0.5 ML ML SQ SCH ×4 (07:30→19:53)
[2019-06-24] MEDS: SOTALOL HCL 80 MG TAB PO SCH ×2 (08:09→20:06)
[2019-06-24] MEDS: CHLORTHALIDONE 25 MG TAB PO SCH (08:10)
[2019-06-24] MEDS: SITAGLIPTIN PHOS 100 MG TAB PO SCH (08:10)
[2019-06-24] MEDS: SPIRONOLACTONE 25 MG TABLET PO SCH ×2 (08:10→20:05)
[2019-06-24] MEDS: METFORMIN HCL 500 MG TAB PO SCH ×2 (08:10→16:47)
[2019-06-24] MEDS: DULOXETINE 20 MG CAP PO SCH (08:10)
[2019-06-24] MEDS: acetaZOLAMIDE 250 MG TAB PO SCH (08:10)
[2019-06-24] MEDS: RIVAROXABAN 20 MG TABLET PO SCH (08:10)
[2019-06-24] MEDS: PANTOPRAZOLE 40MG TABLET PO SCH (08:10)
[2019-06-24] MEDS: FOLIC ACID 1 MG TABLET PO SCH (08:11)
[2019-06-24] MEDS: predniSONE 20 MG TAB PO SCH (08:11)
[2019-06-24] MEDS: TAMSULOSIN 0.4 MG SR CAP PO SCH (08:11)
[2019-06-24] MEDS: Meropenem 1,000 MG in NA CHLORIDE 0.9% 100 ML IV SCH ×2 (08:11→20:04)
[2019-06-25] MEDS: PROMETHAZINE 25 MG/ML VIAL IV PRN ×6 (00:30→20:09)
[2019-06-25] MEDS: FENTANYL CITR 100 MCG/2 ML IV PRN ×6 (00:30→20:08)
[2019-06-25 07:29] LABS: Absolute Lymphocytes (CBC) 3.8 K/uL (0.7-4.9); Basophils % 0.6 % (0-1.3); Hematocrit 39.7 % (39.6-49.0); Lymphocytes % 26.2 % (15.3-44.8); MPV 8.9 fL (7.6-11.3); RBC Red Blood Cell Count 3.98 M/uL (4.33-5.43)
[2019-06-25 07:43] LABS: Potassium 3.7 mmol/L (3.5-5.1)
[2019-06-25] MEDS: acetaZOLAMIDE 250 MG TAB PO SCH (08:25)
[2019-06-25] MEDS: INSULIN -REGULAR HUMAN 50 UNIT/0.5 ML ML SQ SCH ×4 (08:25→20:23)
[2019-06-25] MEDS: Meropenem 1,000 MG in NA CHLORIDE 0.9% 100 ML IV SCH ×2 (08:25→20:22)
[2019-06-25] MEDS: DULOXETINE 20 MG CAP PO SCH (08:25)
[2019-06-25] MEDS: TAMSULOSIN 0.4 MG SR CAP PO SCH (08:26)
[2019-06-25] MEDS: SITAGLIPTIN PHOS 100 MG TAB PO SCH (08:26)
[2019-06-25] MEDS: SPIRONOLACTONE 25 MG TABLET PO SCH ×2 (08:26→20:21)
[2019-06-25] MEDS: PANTOPRAZOLE 40MG TABLET PO SCH (08:26)
[2019-06-25] MEDS: CHLORTHALIDONE 25 MG TAB PO SCH (08:26)
[2019-06-25] MEDS: FOLIC ACID 1 MG TABLET PO SCH (08:26)
[2019-06-25] MEDS: RIVAROXABAN 20 MG TABLET PO SCH (08:26)
[2019-06-25] MEDS: predniSONE 20 MG TAB PO SCH (08:26)
[2019-06-25] MEDS: METFORMIN HCL 500 MG TAB PO SCH ×2 (08:26→16:58)
[2019-06-25] MEDS: SOTALOL HCL 80 MG TAB PO SCH ×2 (08:26→20:20)
[2019-06-25 09:00] LABS: Blood Morphology Comment NOT SEEN (NOT SEEN); Platelet Estimate ADEQ
[2019-06-25] MEDS: VANCOMYCIN 1.5 GM in NA CHLORIDE 0.9% 500 ML IVPB SCH (14:02)
[2019-06-26] MEDS: PROMETHAZINE 25 MG/ML VIAL IV PRN ×6 (00:45→20:06)
[2019-06-26] MEDS: FENTANYL CITR 100 MCG/2 ML IV PRN ×6 (00:46→20:06)
[2019-06-26] MEDS: INSULIN -REGULAR HUMAN 50 UNIT/0.5 ML ML SQ SCH ×4 (07:30→21:32)
[2019-06-26 08:12] LABS: Absolute Lymphocytes (CBC) 3.1 K/uL (0.7-4.9); Basophils % 0.4 % (0-1.3); Hematocrit 39.9 % (39.6-49.0); Lymphocytes % 23.2 % (15.3-44.8); MPV 9.2 fL (7.6-11.3); RBC Red Blood Cell Count 3.97 M/uL (4.33-5.43)
[2019-06-26] MEDS: Meropenem 1,000 MG in NA CHLORIDE 0.9% 100 ML IV SCH ×2 (08:21→21:26)
[2019-06-26] MEDS: TAMSULOSIN 0.4 MG SR CAP PO SCH (08:22)
[2019-06-26] MEDS: acetaZOLAMIDE 250 MG TAB PO SCH (08:22)
[2019-06-26] MEDS: SOTALOL HCL 80 MG TAB PO SCH ×2 (08:22→21:27)
[2019-06-26] MEDS: predniSONE 20 MG TAB PO SCH (08:22)
[2019-06-26] MEDS: DULOXETINE 20 MG CAP PO SCH (08:22)
[2019-06-26] MEDS: SPIRONOLACTONE 25 MG TABLET PO SCH ×2 (08:22→21:28)
[2019-06-26] MEDS: FOLIC ACID 1 MG TABLET PO SCH (08:22)
[2019-06-26] MEDS: CHLORTHALIDONE 25 MG TAB PO SCH (08:23)
[2019-06-26] MEDS: PANTOPRAZOLE 40MG TABLET PO SCH (08:23)
[2019-06-26] MEDS: METFORMIN HCL 500 MG TAB PO SCH ×2 (08:23→15:59)
[2019-06-26] MEDS: SITAGLIPTIN PHOS 100 MG TAB PO SCH (08:23)
[2019-06-26] MEDS: RIVAROXABAN 20 MG TABLET PO SCH (08:39)
[2019-06-26 08:57] LABS: BUN Blood Urea Nitrogen 23 mg/dL (7-18); Bicarbonate 34 mmol/L (21-32); Glucose Level 136 mg/dL (74-106); Magnesium 2.1 mg/dL (1.8-2.4); Phosphorus 3.3 mg/dL (2.5-4.9); Potassium 4.1 mmol/L (3.5-5.1); Sodium Level 143 mmol/L (136-145)
--- NOTE | 2019-06-26 09:17 | P.PN ---
Date of Service: 06/24/19 Subjective: Patient was doing well with no new changes; patient continues to have some nausea; denies any vomiting; wanting Phenergan increased. Clinically continues to improve Objective: Vitals: Reviewed Lungs: Clear to auscultation bilaterally Heart: Regular rate rhythm systolic ejection murmur Abdomen: Continues to have minimal discomfort in the left lower quadrant and suprapubic area. Anterior abdominal wall ventral hernia present. No evidence of any obstruction of the hernia. Extremities: No leg edema. Laboratory Data: Pending Impression: 1. Acute pyelonephritis, organism methicillin-resistant Staphylococcus aureus. 2. Type 2 diabetes mellitus, uncontrolled. 3. Chronic steroid therapy. 4. Leukocytosis. 5. Abdominal pain. 6. Abdominal ventral hernia. 7. A. fibrillation 8. Hypertension 9. Type 2 diabetes 10. History of rheumatoid arthritis 11. History of testicular cancer Plan: 1. Continue meropenem and vancomycin. 2. Decreased prednisone to 20 mg once a day 3. Increased Phenergan 4. For diabetes, we will continue Januvia at 100 mg daily and start metformin 500 mg twice a day. 5. Anticipate discharge home in the next 24-48 hr
--- NOTE | 2019-06-26 09:20 | P.PN ---
Date of Service: 06/25/19 Subjective: Patient continues to do well. Still with nausea. Increased dose of Phenergan is helping. White blood cell count is still at 14,000 but the differential has shifted and is normal. Objective: Vitals: Reviewed Lungs: Clear to auscultation bilaterally Heart: Regular rate rhythm systolic ejection murmur Abdomen: Continues to have minimal discomfort in the left lower quadrant and suprapubic area. Anterior abdominal wall ventral hernia present. No evidence of any obstruction of the hernia. Extremities: No leg edema. Laboratory Data: Pending Impression: 1. Acute pyelonephritis, organism methicillin-resistant Staphylococcus aureus. 2. Type 2 diabetes mellitus, uncontrolled. 3. Chronic steroid therapy. 4. Leukocytosis. 5. Abdominal pain. 6. Abdominal ventral hernia. 7. A. fibrillation 8. Hypertension 9. Type 2 diabetes 10. History of rheumatoid arthritis 11. History of testicular cancer Plan: 1. Continue meropenem and vancomycin. 2. Prednisone to 20 mg once a day 3. Increased Phenergan 4. For diabetes, we will continue Januvia at 100 mg daily and start metformin 500 mg twice a day. 5. Leukocytosis is stable however, Differential and neutrophil percentage is much better. 6. Patient's PCP, Dr. Tubbs, will be back in town in the morning. Plan of care per Dr. Tubbs moving 7. Anticipate discharge home in the next 24-48 hr
[2019-06-26] MEDS: VANCOMYCIN 1.5 GM in NA CHLORIDE 0.9% 500 ML IVPB SCH (09:28)
--- NOTE | 2019-06-26 11:52 | PN ---
Date of Progress Note: 06/26/2019 Subjective: Patient was seen this morning for followup. He was lying in bed, not in any distress. Continues to have nausea but no vomiting. Had a bowel movement yesterday. Soft stool. No liquid or watery stool. Suprapubic and left lower quadrant abdominal pain and tenderness seems to be improvin g on a day-to-day basis. He still has this pain, but overall as he reports every day he has seen melina e improvement. Objective: Vital Signs: Reviewed. HEENT: Examination unremarkable. Lungs: Clear to auscultation. No rhonchi. No rales. Heart: Sounds normal. Abdomen: Soft. Bowel sounds normal. No guarding, rigidity, tenderness, distention. Extremity Exam: No leg edema. Laboratory Data: Today's lab results from this morning pending. Impression: 1.Acute pyelonephritis, organism methicillin-resistant Staphylococcus aureus. 2.Chronic steroid therapy. 3.Hypertension. 4.Paroxysmal atrial fibrillation. Plan: We will continue current medication. Continue vancomycin and meropenem. Tomorrow we will comp lete 2 weeks of IV vancomycin and our plan is to possibly discharge him to go home tomorrow. He will not need any IV antibiotics at home upon discharge as he will complete his antibiotic course in the hospital and upon outpatient, we will just continue to monitor his blood cou nt and overall clinical condition. JORDAN/MODL Voice ID: [id number] Report ID: [id number]
[2019-06-26] MEDS ORDERED: PROCHLORPERAZINE 5 MG TAB PO ONE ×2 (15:00→16:00)
[2019-06-26 20:48] VITALS: O2SAT 97
[2019-06-27] MEDS: PROMETHAZINE 25 MG/ML VIAL IV PRN ×3 (00:12→08:54)
[2019-06-27] MEDS: FENTANYL CITR 100 MCG/2 ML IV PRN ×2 (00:13→04:13)
[2019-06-27] MEDS: VANCOMYCIN 1.5 GM in NA CHLORIDE 0.9% 500 ML IVPB SCH (02:41)
[2019-06-27] MEDS ORDERED: FENTANYL CITR 100 MCG/2 ML IV PRN (08:10)
[2019-06-27 08:50] VITALS: BP 107/63; TEMP 97.8
[2019-06-27] MEDS: TAMSULOSIN 0.4 MG SR CAP PO SCH (08:51)
[2019-06-27] MEDS: FOLIC ACID 1 MG TABLET PO SCH (08:51)
[2019-06-27] MEDS: predniSONE 20 MG TAB PO SCH (08:51)
[2019-06-27] MEDS: METFORMIN HCL 500 MG TAB PO SCH (08:51)
[2019-06-27] MEDS: acetaZOLAMIDE 250 MG TAB PO SCH (08:51)
[2019-06-27] MEDS: PANTOPRAZOLE 40MG TABLET PO SCH (08:51)
[2019-06-27] MEDS: SITAGLIPTIN PHOS 100 MG TAB PO SCH (08:52)
[2019-06-27] MEDS: SOTALOL HCL 80 MG TAB PO SCH (08:52)
[2019-06-27] MEDS: SPIRONOLACTONE 25 MG TABLET PO SCH (08:52)
[2019-06-27] MEDS: RIVAROXABAN 20 MG TABLET PO SCH (08:53)
[2019-06-27] MEDS: DULOXETINE 20 MG CAP PO SCH (08:53)
[2019-06-27] MEDS: INSULIN -REGULAR HUMAN 50 UNIT/0.5 ML ML SQ SCH (08:54)
[2019-06-27] MEDS: CHLORTHALIDONE 25 MG TAB PO SCH (08:54)
[2019-06-27] MEDS ORDERED: HEPARIN 500 UNIT/5 ML SYR IV PRN (09:27)
[2019-06-27] MEDS: Meropenem 1,000 MG in NA CHLORIDE 0.9% 100 ML IV SCH (09:47)
--- NOTE | 2019-06-28 05:33 | DS ---
Date of Discharge: 06/27/2019 History: Patient was seen this morning for followup. Physical Examination: VITAL SIGNS: Reviewed. HEENT: Unremarkable. LUNGS: Clear to auscultation. HEART: Sounds normal. ABDOMEN: Soft. Bowel sounds normal. No guarding, rigidity, tenderness, or distention. EXTREMITIES: No leg edema. Laboratory Data: Last white count yesterday 13.2, hemoglobin 12.5, platelets 216. Highest white cou nt 15.3 on 06/21/2019. After that, white count came down to 14 and then yesterday was 13.2. Once he was admitted, white count was 13.3, then it came down to 9.7, and then started going up to 15 as men tioned above. Last chemistry from yesterday, sodium 143, potassium 4.1, chloride 104 bicarb 34. BUN 23, creatinine 0.80. Glucose 136. Hemoglobin A1c 8.0 done on 06/18/2019. Hospital Course: 58-year-old male patient admitted to the hospital with chills, blood in urine, and burning sensation on urination and feeling weak. He has urethral stricture, gets intermittent bladde r catheterization done 1-2 times a day at home, and he is under care of Dr. Alvarez, urologist in [place]. He has history of recurrent urinary tract infection. After he was evaluated in the ER, he was admi tted to the hospital with acute pyelonephritis. Urine culture grew MRSA. Blood culture was negative . He was started on IV vancomycin and IV cefepime. He was also given IV steroid as he is on chronic oral steroid therapy. IV fluid was given. Overall, his condition improved. At one point, he had s ome shortness of breath and we were concerned about possibility of fluid overload, so IV fluid was di scontinued and he did receive few doses of IV Lasix and his condition improved. After his white coun t came down to normal, our plan was to send him home with IV vancomycin, but then his white count sta rted going up. Initially, we thought that this was possibly due to IV steroid medication, but we wer e definitely concerned about another infection, so we kept looking. Repeat blood culture and urine c ulture were done. Chest x-ray was done. We were not able to identify any source of any infection to cause elevated white count. He also had suprapubic and left lower quadrant tenderness, so we did re peat another CAT scan of abdomen and pelvis that did not show any acute findings either. So, we disc ontinued cefepime and started him on meropenem along with vancomycin. With this combination of antib iotic, his condition slowly improved over a period of this hospitalization and today he did not have any abdominal tenderness. He finished 2 weeks of IV vancomycin in the hospital and he will no longer need any IV medication at home. He was diagnosed as having type 2 diabetes uncontrolled during this hospitalization. Fingerstick blood sugar with sliding scale insulin was given and he was started on Januvia 100 mg daily and metformin 500 mg twice a day was added later on, and now, we will send him home with metformin 1000 mg twice a day. His blood sugar is in the range of 150-250 range now. Final Diagnoses: 1.Acute pyelonephritis. 2.Type 2 diabetes mellitus, uncontrolled. 3.Chronic steroid therapy. 4.Hypertension. 5.Urethral stricture. 6.Anemia, unspecified. 7.Paroxysmal atrial fibrillation. 8.Sleep apnea. 9.Crohn disease. 10.Rheumatoid arthritis. 11.Ventral hernia, abdominal wall. 12.Chronic anticoagulation therapy. Discharge Medications And Instructions: 1.Continue all prior home medication. 2.Take Januvia 100 mg p.o. daily with breakfast. 3.Metformin 1000 mg twice a day, take it with breakfast and supper. 4.Follow up at my office a week after next. JORDAN/KENDALL Voice ID: [id number] Report ID: [id number]
== END 2019-06-27 11:47 | disposition home or self-care (01) | DRG 690 ==
LOC: ER 11:49 → ERHOLD 15:14 → 4TH 16:47
PROVIDERS: ADMIT Internal Medicine; ATTEND Internal Medicine
DX: N10 Acute pyelonephritis (principal); K50.90 Crohn's disease, unspecified, without complications; Z68.42 Body mass index [BMI] 45.0-49.9, adult; B95.62 Methicillin resistant Staphylococcus aureus infection as the cause of diseases classified elsewhere; E11.65 Type 2 diabetes mellitus with hyperglycemia; D64.9 Anemia, unspecified; I10 Essential (primary) hypertension; N35.919 Unspecified urethral stricture, male, unspecified site; I48.0 Paroxysmal atrial fibrillation; R06.81 Apnea, not elsewhere classified; M06.9 Rheumatoid arthritis, unspecified; K43.9 Ventral hernia without obstruction or gangrene; E66.01 Morbid (severe) obesity due to excess calories; Z79.52 Long term (current) use of systemic steroids
CPT/HCPCS: 36415; 71046; 74176; 74177; 80048; 80053; 80076; 80202; 81001; 81003; 82962; 83036; 83605; 83690; 83735; 84100; 84145; 85025; 87040; 87077; 87086; 87088; 87186; 96365; 96366; 96375; 97161; 99285; J0692; J0696; J1642; J1720; J1940; J2405; J2550; J3010; J7030; J7512; Q9967

== ENCOUNTER 2019-07-25 09:31 | Day surgery (SDC) | payer OTHER ==
--- OUTSIDE RECORDS SUMMARY | 2019-07-25 09:38 | XMS REPORT | Clinical Summary ---
:1960 Author Organization [facility] Address [address] [place] [address] Care Team Providers Name Role Phone Asked, [...] 0 Active vitamin B-12, 1,000 mcg as mcg/mL kit directed every 30 (thirty) days. anakinra (KINERET) 100 [...] (CARAFATE) Take 1 tablet 90 tablet 11 02/15/20 Active 1 gram tablet (1 g total) by 020 mouth 3 (three) times a day before meals. predniSONE (DELTASONE) Take 5 mg by 0 Discontinued 10 MG tablet mouth every 018 (Stop Taking at morning. Discharge) ARIPiprazole (ABILIFY) Take 5 mg by 0 Discontinued 5 MG tablet mouth every 018 (Stop Taking at morning. Discharge) tamsulosin (FLOMAX) Take 0.4 mg by 0 Discontinued 0.4 mg mouth every 018 (Stop Taking at capsule,extended morning. Discharge) release 24hr DULOXETINE HCL Take 60 mg by 0 Discontinued (CYMBALTA ORAL) mouth every 018 (Stop Taking at morning. Takes Discharge) two of the 60mg in the morning rivaroxaban (XARELTO) Take 15 mg by 0 Discontinued tablet mouth every 018 (Stop Taking at morning. Discharge) ferrous sulfate (IRON) Take 325 mg by 0 Discontinued 325 (65 FE) MG tablet mouth daily. 019 ascorbic acid, vitamin Take 500 mg by 0 Discontinued C, (ascorbic acid with mouth daily. 018 (Stop Taking at philip hips) 500 MG Discharge) tablet sotalol (BETAPACE) 120 Take 120 mg by 0 Discontinued MG tablet mouth 2 (two) 018 (Stop Taking at times a day. Discharge) chlorthalidone Take 25 mg by 0 Discontinued (HYGROTEN) 25 MG mouth every 018 (Stop Taking at tablet morning. Discharge) spironolactone Take 50 mg by 0 Discontinued (ALDACTONE) 50 MG mouth 2 (two) 018 (Stop Taking at tablet times a day. Discharge) acetaZOLAMIDE (DIAMOX) Take 250 mg by 0 Discontinued 250 MG tablet mouth every 018 (Stop Taking at morning. Discharge) ANAKINRA (KINERET Inject 100 mg 0 Discontinued SUBQ) under the skin 018 (Stop Taking at daily. Discharge) omeprazole (PriLOSEC) TAKE 1 CAPSULE 90 capsule 2 10/25/20 Discontinued 20 MG capsule (20 MG TOTAL) 17 019 BY MOUTH DAILY FOR 180 DAYS. ARIPiprazole (ABILIFY) Take 5 mg by 0 10/08/20 Discontinued 5 MG tablet mouth daily. 17 018 (Stop Taking at Discharge) XARELTO 20 mg tablet Take 20 mg by 3 08/25/20 Discontinued mouth daily. 18 018 (Stop Taking at Discharge) chlorthalidone Take 25 mg by 0 10/08/20 Discontinued (HYGROTEN) 25 MG mouth daily. 17 018 (Stop Taking at tablet Discharge) DULoxetine (CYMBALTA) Take 120 mg by 0 10/08/20 Discontinued 60 MG capsule mouth daily. 2 17 018 (Stop Taking at caps daily Discharge) tamsulosin (FLOMAX) Take 0.4 mg by 0 10/08/20 Discontinued 0.4 mg capsule mouth daily. 17 018 (Stop Taking at Discharge) spironolactone Take 50 mg by 0 10/08/20 Discontinued (ALDACTONE) 50 MG mouth 2 (two) 17 018 (Stop Taking at tablet times a day. Discharge) sotalol (BETAPACE) 80 Take 80 mg by 0 01/04/20 Discontinued MG tablet mouth 2 (two) 18 018 (Med List times a day. Cleanup) HYDROcodone-acetaminop Take 1 tablet 0 07/13/20 Discontinued hen (NORCO) 7.5-325 mg by mouth 4 18 018 (Stop Taking at per tablet (four) times a Discharge) day. sotalol (BETAPACE) 120 Take 1 tablet 60 tablet 0 10/22/20 MG tablet (120 mg total) 18 018 by mouth 2 (two) times a day for 30 days. rivaroxaban (XARELTO) Take 1 tablet 30 tablet 0 10/22/20 20 mg tablet (20 mg total) 18 018 by mouth daily for 30 days. methylPREDNISolone Infuse 0.6 mL 18 mL 0 10/22/20 sodium succinate (25 mg total) 18 018 (Solu-MEDROL) 40 mg/mL into a venous recon soln catheter daily for 30 days. insulin lispro Inject 0-12 10 mL 12 10/21/20 (HumaLOG) 100 unit/mL Units under 18 018 injection the skin every 4 (four) hours for 30 days. soybean oil/MCT/olive Infuse 250 mL 2000 mL 0 10/24/20 oil/fish oil fat, SMOF into a venous 18 019 Lipid, (SMOFlipid) 20 catheter 2 % emulsion infusion (two) times a week for 30 days. sennosides-docusate Take 1 tablet 60 tablet 0 10/21/20 sodium (SENOKOT-S) by mouth 2 18 018 8.6-50 mg per tablet (two) times a day for 30 days. HYDROcodone-acetaminop Take 1 tablet 0 10/21/20 hen (NORCO) 10-325 mg by mouth every 18 018 per tablet 6 (six) hours as needed for moderate pain for up to 15 days. Max Daily Amount: 4 tablets ondansetron ODT Take 1 tablet 0 10/21/20 (ZOFRAN-ODT) 4 MG (4 mg total) 18 018 disintegrating tablet by mouth every 6 (six) hours as needed for nausea or vomiting for up to 30 days. sodium chloride 0.9% Infuse 12.5 mg 1 mL 0 10/21/20 solution 10 mL with into a venous 18 018 promethazine 25 mg/mL catheter every solution 12.5 mg 6 (six) hours injection as needed for nausea or vomiting for up to 30 days. promethazine Take 1 tablet 0 10/21/20 (PHENERGAN) 12.5 MG (12.5 mg 18 018 tablet total) by mouth every 6 (six) hours as needed for nausea or vomiting for up to 30 days. promethazine Insert 1 0 10/21/20 (PHENERGAN) 12.5 MG suppository 18 018 suppository (12.5 mg total) into the rectum every 6 (six) hours as needed for nausea or vomiting for up to 30 days. DULoxetine (CYMBALTA) Take 1 capsule 30 capsule 0 10/22/20 30 MG capsule (30 mg total) 18 018 by mouth daily for 30 days. Increase by 30mg daily to home dose of 120mg daily predniSONE (DELTASONE) Take 20 mg by 0 Discontinued 5 mg tablet mouth daily. 019 (Reorder) predniSONE (DELTASONE) Take 4 tablets 120 tablet 2 02/15/20 5 mg tablet (20 mg total) 19 019 by mouth daily for 90 days. [...] MD Onofre STUDY W ABLATION PULMONARY VEIN [84143 (CPT)] 02/13/2019 Anesthesia Event Procedural Peace Jones Cardiology MD Al 02/13/2019 - Hospital Encounter Cardiology Seth Saldaña PAF (paroxysmal 02/14/2019 MD Onofre atrial fibrillation) ([facility]) 10/05/2018 Anesthesia Event General Surgery Marbin Sandoval MD Manning, Gary M., MD 10/05/2018 - Surgery General Surgery Yo Khan LAPAROTOMY, 10/06/2018 MD Antoine EXPLORATORY, SEGMENTAL RESECTION OF SMALL BOWEL X4 WITH LYSIS OF ADHESION 10/05/2018 - Hospital Encounter General Surgery Anthony Lyn Bowel perforation 10/21/2018 MD Antoine ([facility]) Yo Khan MD 10/05/2018 Intake Access N/A 09/29/2018 Hospital Encounter Radiology 09/29/2018 Hospital Encounter Radiology 09/29/2018 Hospital Encounter Radiology 09/29/2018 Hospital Encounter Radiology 08/09/2018 Refill General Surgery Jackelin Nguyễn PA after 07/24/2018 Family History Medical History Relation Name Comments [...] Vital Signs Vital Sign Reading Time Taken Comments Blood Pressure 102/60 02/14/2019 8:00 AM CDT [...] 9:13 AM Staff: Anesthesiologist: Peace Jones MD Resident/PROGRAM SUPPORT SPECIALIST/AA: Cora Austin CRNA Performed by: Anesthesiologist Pre-procedure: [...] the procedure well with no immediate complications NM AN ELECTIVE ENDOTRACHEAL AIRWAY Routine 02/13/2019 9:12 [...] CDT POC GLUCOSE Routine 10/21/2018 7:43 PM STENCILER POC GLUCOSE Routine 10/21/2018 5:16 PM STENCILER POC GLUCOSE Routine 10/21/2018 11:53 AM STENCILER POC GLUCOSE Routine 10/21/2018 8:01 AM STENCILER POC GLUCOSE Routine 10/21/2018 4:52 AM STENCILER POC GLUCOSE Routine 10/20/2018 11:01 PM STENCILER POC GLUCOSE Routine 10/20/2018 7:23 PM STENCILER POC GLUCOSE Routine 10/20/2018 3:48 PM STENCILER POC GLUCOSE Routine 10/20/2018 12:06 PM STENCILER POC GLUCOSE Routine 10/20/2018 7:17 AM STENCILER POC GLUCOSE Routine 10/20/2018 3:39 AM STENCILER ESTIMATED GFR Routine 10/20/2018 12:37 AM STENCILER PHOSPHORUS LEVEL Routine 10/20/2018 12:37 AM STENCILER MAGNESIUM LEVEL Routine 10/20/2018 12:37 AM STENCILER BASIC METABOLIC PANEL Routine 10/20/2018 12:37 AM STENCILER POC GLUCOSE Routine 10/20/2018 12:00 AM STENCILER POC GLUCOSE Routine 10/19/2018 8:51 PM STENCILER POC GLUCOSE Routine 10/19/2018 4:27 PM STENCILER POC GLUCOSE Routine 10/19/2018 12:29 PM STENCILER POC GLUCOSE Routine 10/19/2018 9:02 AM STENCILER POC GLUCOSE Routine 10/19/2018 4:07 AM STENCILER POC GLUCOSE Routine 10/19/2018 12:22 AM STENCILER POC GLUCOSE Routine 10/18/2018 8:09 PM STENCILER POC GLUCOSE Routine 10/18/2018 4:13 PM STENCILER POC GLUCOSE Routine 10/18/2018 1:06 PM STENCILER XR ABDOMEN 2 VW AP W UPRIGHT Routine 10/18/2018 10:00 AM STENCILER Results for this AND/OR DECUBITUS procedure are in the results section. POC GLUCOSE Routine 10/18/2018 9:51 AM STENCILER POC GLUCOSE Routine 10/18/2018 7:48 AM STENCILER POC GLUCOSE Routine 10/18/2018 4:46 AM STENCILER ESTIMATED GFR Routine 10/18/2018 4:00 AM STENCILER PHOSPHORUS LEVEL Routine 10/18/2018 4:00 AM STENCILER MAGNESIUM LEVEL Routine 10/18/2018 4:00 AM STENCILER TRIGLYCERIDES Routine 10/18/2018 4:00 AM STENCILER BASIC METABOLIC PANEL Routine 10/18/2018 4:00 AM STENCILER POC GLUCOSE Routine 10/17/2018 11:43 PM STENCILER POC GLUCOSE Routine 10/17/2018 8:04 PM STENCILER POC GLUCOSE Routine 10/17/2018 5:08 PM STENCILER POC GLUCOSE Routine 10/17/2018 12:11 PM STENCILER PHOSPHORUS LEVEL Routine 10/17/2018 9:00 AM STENCILER MAGNESIUM LEVEL Routine 10/17/2018 9:00 AM STENCILER ESTIMATED GFR Routine 10/17/2018 9:00 AM STENCILER BASIC METABOLIC PANEL Routine 10/17/2018 9:00 AM STENCILER POC GLUCOSE Routine 10/17/2018 8:32 AM STENCILER POC GLUCOSE Routine 10/17/2018 3:17 AM STENCILER POC GLUCOSE Routine 10/16/2018 11:52 PM STENCILER POC GLUCOSE Routine 10/16/2018 8:14 PM STENCILER POC GLUCOSE Routine 10/16/2018 4:16 PM STENCILER POC GLUCOSE Routine 10/16/2018 11:49 AM STENCILER POC GLUCOSE Routine 10/16/2018 8:09 AM STENCILER POC GLUCOSE Routine 10/16/2018 3:16 AM STENCILER POC GLUCOSE Routine 10/16/2018 12:21 AM STENCILER POC GLUCOSE Routine 10/15/2018 7:59 PM STENCILER POC GLUCOSE Routine 10/15/2018 5:40 PM STENCILER POC GLUCOSE Routine 10/15/2018 2:34 PM STENCILER POC GLUCOSE Routine 10/15/2018 1:12 PM STENCILER POC GLUCOSE Routine 10/15/2018 8:06 AM STENCILER BASIC METABOLIC PANEL Routine 10/15/2018 4:00 AM STENCILER ESTIMATED GFR Routine 10/15/2018 4:00 AM STENCILER MAGNESIUM LEVEL Routine 10/15/2018 4:00 AM STENCILER POC GLUCOSE Routine 10/15/2018 3:00 AM STENCILER POC GLUCOSE Routine 10/15/2018 12:43 AM STENCILER POC GLUCOSE Routine 10/14/2018 7:58 PM STENCILER POC GLUCOSE Routine 10/14/2018 5:02 PM STENCILER POC GLUCOSE Routine 10/14/2018 12:47 PM STENCILER ESTIMATED GFR Routine 10/14/2018 7:45 AM STENCILER BASIC METABOLIC PANEL Routine 10/14/2018 7:45 AM STENCILER POC GLUCOSE Routine 10/14/2018 7:43 AM STENCILER POC GLUCOSE Routine 10/14/2018 5:02 AM STENCILER POC GLUCOSE Routine 10/14/2018 12:20 AM STENCILER POC GLUCOSE Routine 10/13/2018 9:11 PM STENCILER POC GLUCOSE Routine 10/13/2018 4:25 PM STENCILER POC GLUCOSE Routine 10/13/2018 12:20 PM STENCILER POC GLUCOSE Routine 10/13/2018 8:17 AM STENCILER ESTIMATED GFR Routine 10/13/2018 6:19 AM STENCILER BASIC METABOLIC PANEL Routine 10/13/2018 6:19 AM STENCILER POC GLUCOSE Routine 10/13/2018 4:24 AM STENCILER POC GLUCOSE Routine 10/12/2018 11:25 PM STENCILER POC GLUCOSE Routine 10/12/2018 8:09 PM STENCILER POC GLUCOSE Routine 10/12/2018 3:55 PM STENCILER POC GLUCOSE Routine 10/12/2018 11:37 AM STENCILER POC GLUCOSE Routine 10/12/2018 7:19 AM STENCILER POC GLUCOSE Routine 10/12/2018 4:59 AM STENCILER ESTIMATED GFR Routine 10/12/2018 3:58 AM STENCILER PHOSPHORUS LEVEL Routine 10/12/2018 3:58 AM STENCILER MAGNESIUM LEVEL Routine 10/12/2018 3:58 AM STENCILER BASIC METABOLIC PANEL Routine 10/12/2018 3:58 AM STENCILER POC GLUCOSE Routine 10/11/2018 11:17 PM STENCILER POC GLUCOSE Routine 10/11/2018 7:28 PM STENCILER POC GLUCOSE Routine 10/11/2018 3:14 PM STENCILER POC GLUCOSE Routine 10/11/2018 11:39 AM STENCILER ESTIMATED GFR Routine 10/11/2018 8:51 AM STENCILER PHOSPHORUS LEVEL Routine 10/11/2018 8:51 AM STENCILER MAGNESIUM LEVEL Routine 10/11/2018 8:51 AM STENCILER BASIC METABOLIC PANEL Routine 10/11/2018 8:51 AM STENCILER POC GLUCOSE Routine 10/11/2018 7:28 AM STENCILER POC GLUCOSE Routine 10/11/2018 4:21 AM STENCILER POC GLUCOSE Routine 10/10/2018 11:07 PM STENCILER POC GLUCOSE Routine 10/10/2018 7:41 PM STENCILER POC GLUCOSE Routine 10/10/2018 6:02 PM STENCILER POC GLUCOSE Routine 10/10/2018 1:03 PM STENCILER POC GLUCOSE Routine 10/10/2018 8:13 AM STENCILER POC GLUCOSE Routine 10/10/2018 5:24 AM STENCILER MAGNESIUM LEVEL Routine 10/10/2018 3:45 AM STENCILER PHOSPHORUS LEVEL Routine 10/10/2018 3:45 AM STENCILER ESTIMATED GFR Routine 10/10/2018 3:45 AM STENCILER BASIC METABOLIC PANEL Routine 10/10/2018 3:45 AM STENCILER HC COMPLETE BLD COUNT W/AUTO Routine 10/10/2018 3:45 AM STENCILER Results for this DIFF procedure are in the results section. POC GLUCOSE Routine 10/09/2018 11:34 PM STENCILER POC GLUCOSE Routine 10/09/2018 7:58 PM STENCILER POC GLUCOSE Routine 10/09/2018 4:25 PM STENCILER POC GLUCOSE Routine 10/09/2018 11:53 AM STENCILER ECG 12-LEAD Routine 10/09/2018 8:17 AM STENCILER HC COMPLETE BLD COUNT W/AUTO Routine 10/09/2018 7:58 AM STENCILER Results for this DIFF procedure are in the results section. POC GLUCOSE Routine 10/09/2018 7:40 AM STENCILER POC GLUCOSE Routine 10/09/2018 5:10 AM STENCILER ESTIMATED GFR Routine 10/09/2018 3:46 AM STENCILER BASIC METABOLIC PANEL Routine 10/09/2018 3:46 AM STENCILER MAGNESIUM LEVEL Routine 10/09/2018 3:46 AM STENCILER PHOSPHORUS LEVEL Routine 10/09/2018 3:46 AM STENCILER POC GLUCOSE Routine 10/08/2018 11:31 PM STENCILER POC GLUCOSE Routine 10/08/2018 8:38 PM STENCILER HC COMPLETE BLD COUNT W/AUTO Routine 10/08/2018 6:00 PM STENCILER Results for this DIFF procedure are in the results section. POC GLUCOSE Routine 10/08/2018 4:32 PM STENCILER POC GLUCOSE Routine 10/08/2018 12:46 PM STENCILER POC GLUCOSE Routine 10/08/2018 9:07 AM STENCILER HC COMPLETE BLD COUNT W/AUTO Routine 10/08/2018 5:10 AM STENCILER Results for this DIFF procedure are in the results section. POC GLUCOSE Routine 10/08/2018 4:44 AM STENCILER ESTIMATED GFR Routine 10/08/2018 4:00 AM STENCILER PHOSPHORUS LEVEL Routine 10/08/2018 4:00 AM STENCILER MAGNESIUM LEVEL Routine 10/08/2018 4:00 AM STENCILER BASIC METABOLIC PANEL Routine 10/08/2018 4:00 AM STENCILER POC GLUCOSE Routine 10/07/2018 11:36 PM STENCILER POC GLUCOSE Routine 10/07/2018 7:38 PM STENCILER POC GLUCOSE Routine 10/07/2018 3:50 PM STENCILER HC CATH DUAL LUMEN PICC Routine 10/07/2018 2:08 PM STENCILER HC US GUIDED VASCULAR ACCESS Routine 10/07/2018 2:08 PM STENCILER HC CVL PICC INSERT 5 YRS OR Routine 10/07/2018 2:08 PM STENCILER Results for this > W/O IMG GUID procedure are in the results section. HEMOGLOBIN & HEMATOCRIT Routine 10/07/2018 1:25 PM STENCILER POC GLUCOSE Routine 10/07/2018 11:03 AM STENCILER POC GLUCOSE Routine 10/07/2018 7:09 AM STENCILER XR CHEST 1 VW PORTABLE Routine 10/07/2018 6:41 AM STENCILER POC GLUCOSE Routine 10/07/2018 4:38 AM STENCILER ESTIMATED GFR Routine 10/07/2018 3:04 AM STENCILER PHOSPHORUS LEVEL Routine 10/07/2018 3:04 AM STENCILER MAGNESIUM LEVEL Routine 10/07/2018 3:04 AM STENCILER LDH Routine 10/07/2018 3:04 AM STENCILER HEPATIC FUNCTION PANEL Routine 10/07/2018 3:04 AM STENCILER BASIC METABOLIC PANEL Routine 10/07/2018 3:04 AM STENCILER PROTHROMBIN TIME WITH INR Routine 10/07/2018 2:15 AM STENCILER HC COMPLETE BLD COUNT W/AUTO Routine 10/07/2018 2:15 AM STENCILER Results for this DIFF procedure are in the results section. POC GLUCOSE Routine 10/07/2018 12:45 AM STENCILER POC GLUCOSE Routine 10/06/2018 8:38 PM STENCILER ESTIMATED GFR Routine 10/06/2018 3:37 PM STENCILER IONIZED CALCIUM Routine 10/06/2018 3:37 PM STENCILER PHOSPHORUS LEVEL Routine 10/06/2018 3:37 PM STENCILER MAGNESIUM LEVEL Routine 10/06/2018 3:37 PM STENCILER BASIC METABOLIC PANEL Routine 10/06/2018 3:37 PM STENCILER POC GLUCOSE Routine 10/06/2018 2:38 PM STENCILER XR CHEST 1 VW PORTABLE STAT 10/06/2018 7:30 AM STENCILER IONIZED CALCIUM, ARTERIAL STAT 10/06/2018 6:50 AM STENCILER PROTHROMBIN TIME WITH INR STAT 10/06/2018 6:50 AM STENCILER PARTIAL THROMBOPLASTIN TIME STAT 10/06/2018 6:50 AM STENCILER Results for this (PTT) procedure are in the results section. HC COMPLETE BLD COUNT W/AUTO STAT 10/06/2018 6:50 AM STENCILER Results for this DIFF procedure are in the results section. ARTERIAL BLOOD GAS STAT 10/06/2018 6:50 AM STENCILER COPPER LEVEL, SERUM Routine 10/06/2018 6:50 AM STENCILER ZINC LEVEL, SERUM Routine 10/06/2018 6:50 AM STENCILER POC GLUCOSE Routine 10/06/2018 6:49 AM STENCILER ESTIMATED GFR STAT 10/06/2018 6:27 AM STENCILER LACTIC ACID LEVEL STAT 10/06/2018 6:27 AM STENCILER PHOSPHORUS LEVEL STAT 10/06/2018 6:27 AM STENCILER MAGNESIUM LEVEL STAT 10/06/2018 6:27 AM STENCILER COMPREHENSIVE METABOLIC STAT 10/06/2018 6:27 AM STENCILER Results for this PANEL procedure are in the results section. PREALBUMIN LEVEL Routine 10/06/2018 6:21 AM STENCILER GLUCOSE LEVEL, SYRINGE Routine 10/06/2018 4:53 AM STENCILER HEMOGLOBIN, SYRINGE Routine 10/06/2018 4:53 AM STENCILER POTASSIUM, SYRINGE Routine 10/06/2018 4:53 AM STENCILER SODIUM LEVEL, SYRINGE Routine 10/06/2018 4:53 AM STENCILER IONIZED CALCIUM, ARTERIAL Routine 10/06/2018 4:53 AM STENCILER ARTERIAL BLOOD GAS, Routine 10/06/2018 4:53 AM STENCILER Results for this CORRECTED procedure are in the results section. LACTIC ACID, SYRINGE Routine 10/06/2018 2:10 AM STENCILER MAGNESIUM LEVEL Routine 10/06/2018 2:10 AM STENCILER GLUCOSE LEVEL, SYRINGE Routine 10/06/2018 2:10 AM STENCILER HEMOGLOBIN, SYRINGE Routine 10/06/2018 2:10 AM STENCILER IONIZED CALCIUM, ARTERIAL Routine 10/06/2018 2:10 AM STENCILER POTASSIUM, SYRINGE Routine 10/06/2018 2:10 AM STENCILER SODIUM LEVEL, SYRINGE Routine 10/06/2018 2:10 AM STENCILER ARTERIAL BLOOD GAS, Routine 10/06/2018 2:10 AM STENCILER Results for this CORRECTED procedure are in the results section. CENTRAL LINE Routine 10/06/2018 1:53 AM STENCILER Procedure Note - Yuni Ham MD - 10/06/2018 1:53 AM STENCILER Central line Performed by: Giuliano Herrera MD [...] complications ARTERIAL LINE Routine 10/06/2018 1:29 AM STENCILER Procedure Note - Giuliano Herrera MD - 10/06/2018 1:29 AM STENCILER Arterial line Performed by: Giuliano Herrera MD [...] complications ANESTHESIA INTUBATION Routine 10/06/2018 1:11 AM STENCILER Procedure Note - Giuliano Herrera MD - 10/06/2018 1:11 AM STENCILER ANESTHESIA INTUBATION Date/Time: 10/05/2018 11:43 PM Performed [...] Yes Number of Attempts at Approach: 1 LAPAROTOMY, 10/05/2018 10:54 small bowel EXPLORATORY PM STENCILER obstruction, perforated bowel URINALYSIS SCREEN AND Routine 10/05/2018 10:48 Results for this MICROSCOPY, WITH PM STENCILER procedure are in REFLEX TO CULTURE the results section. GRAM STAIN Routine 10/05/2018 10:48 Results for this PM STENCILER procedure are in the results section. URINE CULTURE Routine 10/05/2018 10:48 Results for this PM STENCILER procedure are in the results section. ANTI XA RIVAROXABAN STAT 10/05/2018 9:04 Results for this PM STENCILER procedure are in the results section. ARTERIAL BLOOD GAS STAT 10/05/2018 9:04 Results for this PM STENCILER procedure are in the results section. PROTHROMBIN TIME WITH STAT 10/05/2018 9:04 Results for this INR PM STENCILER procedure are in the results section. PARTIAL THROMBOPLASTIN STAT 10/05/2018 9:04 Results for this TIME (PTT) PM STENCILER procedure are in the results section. XR CHEST 1 VW PORTABLE STAT 10/05/2018 8:49 Results for this PM STENCILER procedure are in the results section. XR ABDOMEN 1 VW STAT 10/05/2018 8:49 Results for this PORTABLE PM STENCILER procedure are in the results section. HC COMPLETE BLD COUNT STAT 10/05/2018 8:30 Results for this W/AUTO DIFF PM STENCILER procedure are in the results section. ECG 12-LEAD STAT 10/05/2018 8:23 Results for this PM STENCILER procedure are in the results section. POC GLUCOSE Routine 10/05/2018 8:14 Results for this PM STENCILER procedure are in the results section. PREPARE RBC STAT 10/05/2018 7:46 Results for this PM STENCILER procedure are in the results section. PREPARE FRESH FROZEN STAT 10/05/2018 7:46 Results for this PLASMA PM STENCILER procedure are in the results section. ESTIMATED GFR STAT 10/05/2018 7:46 Results for this PM STENCILER procedure are in the results section. TYPE AND SCREEN STAT 10/05/2018 7:46 Results for this PM STENCILER procedure are in the results section. PHOSPHORUS LEVEL STAT 10/05/2018 7:46 Results for this PM STENCILER procedure are in the results section. MAGNESIUM LEVEL STAT 10/05/2018 7:46 Results for this PM STENCILER procedure are in the results section. LACTIC ACID LEVEL STAT 10/05/2018 7:46 Results for this PM STENCILER procedure are in the results section. BASIC METABOLIC PANEL STAT 10/05/2018 7:46 Results for this PM STENCILER procedure are in the results section. CT ABD/PELVIC EXTERNAL Routine 10/05/2018 12:23 Results for this STUDY PM STENCILER procedure are in the results section. SURGICAL PATHOLOGY Routine 10/05/2018 8:36 Results for this REQUEST AM STENCILER procedure are in the results section. after 07/24/2018 Results Prothrombin time with INR (02/14/2019 4:18 AM CDT)Only the most recent of4 resultswithin the time period is included. Prothrombin time 22.3 (H) 11.5 - 14.5 [facility] INR 2.0 [place] Comment: [facility] International Normalized Ratio (INR) is a therapeutic HOSPITAL monitoring tool for patients who are stable on oral anticoagulant therapy. An INR of 2.0-3.0 is suggested for deep vein thrombosis/pulmonary embolism. Specimen Blood Performing Organization Address City/State/Zipcode Phone Number [facility] DEPARTMENT OF PATHOLOGY AND [address] [place] [address] GENOMIC MEDICINE [address] [address] ECG 12 lead (02/14/2019 4:17 AM CDT)Only the most recent of4 resultswithin the time period is included. Ventricular rate 74 [facility] Atrial rate 74 [facility] NM interval 162 [facility] QRSD interval 92 [facility] QT interval 410 [facility] QTC interval 455 [facility] P axis 1 65 H MUSE QRS axis 1 66 [facility] MUSE T wave axis 41 [facility] MUSE EKG impression Normal sinus rhythm-Low voltage QRS-Incomplete right bundle branch block-Septal infarct (cited on or before 31-MAR-2017)-Abnormal ECG-In automated comparison with ECG of 13-FEB-2019 13:06,-No significan [facility] MUSE t change was found- Specimen Narrative Performed At Performing Organization Address City/State/Zipcode Phone Number [facility] MUSE [address] [place] [address] CBC with platelet and differential (02/14/2019 4:15 AM CDT)Only the most recent of8 resultswithin the time period is included. WBC 12.99 (H) 4.50 - 11.00 [facility] k/uL HOSPITAL RBC 3.82 (L) 4.40 - 6.00 [facility] m/uL [facility] HGB 11.9 (L) 14.0 - 18.0 [facility] g/dL [facility] HCT 39.0 (L) 41.0 - 51.0 % [facility] MCV 102.1 (H) 82.0 - 100.[address] [facility] MCH 31.2 27.0 - 34.0 pg [facility] MCHC 30.5 (L) 31.0 - 37.0 [facility] g/dL [facility] RDW - SD 61.3 (H) 37.0 - 55.0 fL [facility] MPV 10.3 8.8 - 13.2 fL [facility] Platelet count 262 150 - 400 k/uL [facility] Nucleated RBC 0.00 /100 WBC [facility] Neutrophils 65.2 39.0 - 69.0 % [facility] Lymphocytes 24.0 (L) 25.0 - 45.0 % [facility] Monocytes 9.0 0.0 - 10.0 % [facility] Eosinophils 0.1 0.0 - 5.0 % [facility] Basophils 0.5 0.0 - 1.0 % [facility] Immature granulocytes 1.2 0.0 - 1.0 % [facility] (H)Comment: [facility] "Immature granulocytes" (promyelocytes , myelocytes, metamyelocytes ) Specimen Blood Performing Organization Address City/State/Zipcode Phone Number [facility] DEPARTMENT OF PATHOLOGY AND [address] [place] [phone] Estimated GFR (02/14/2019 4:00 AM CDT)Only the most recent of17 resultswithin the time period is included. [facility] Estimated GFR 65 mL/min/1.73 [facility] Comment: [address] CatergoryUnitsInterpretation G1 >=90 Normal or high G2 60-89Mildly decreased [id number] to moderately decreased [id number] to severely decreased G4 15-29Severely decreased G5 <15Kidney failure The eGFR was calculated using the Chronic Kidney Disease Epidemiology Collaboration (CKD-EPI) equation. Interpretation is based on recommendations of the National Kidney Foundation-Kidney Disease Outcomes Quality Initiative (NKF-KDOQI) published in 2014. Specimen Plasma specimen Performing Organization Address City/[facility] Phone Number [facility] DEPARTMENT OF PATHOLOGY AND [address] [place] [address] Basic metabolic panel (02/14/2019 4:00 AM CDT)Only the most recent of16 resultswithin the time period is included. [facility] Sodium 139 135 - 148 mEq/L [facility] Potassium 3.9 3.5 - 5.0 mEq/L [facility] Chloride 101 98 - 112 mEq/L [facility] CO2 28 24 - 31 mEq/L [facility] Anion gap 10@ANIO 7 - 15 mEq/L [facility] BUN 24 (H) 6 - 20 mg/dL [facility] Creatinine 1.22 (H) 0.70 - 1.20 mg/dL [facility] Glucose 169 (H) 65 - 99 mg/dL [facility] Calcium 8.6 8.3 - 10.2 mg/dL [facility] Specimen Plasma specimen Performing Organization Address City/[facility]/Zipcode Phone Number [facility] DEPARTMENT OF PATHOLOGY AND [address] [place] [address], [place] [address] Magnesium level (02/13/2019 3:59 PM CDT)Only the most recent of15 resultswithin the time period is included. Magnesium 1.8 1.6 - 2.6 mg/dL [facility] Specimen Plasma specimen Performing Organization Address City/State/Zipcode Phone Number [facility] DEPARTMENT OF PATHOLOGY AND [address] [place] [address] GENOMIC MEDICINE [address] [address] Cv electrophysiology procedure (02/13/2019 12:44 PM CDT) Specimen Narrative Performed At SEAMER OPERATOR: JANNETTE Saldaña MD COMPLICATIONS: None. ESTIMATED BLOOD [...] in the right superior pulmonary vein.Using a [employer] ablation catheter via deflectable sheath, ablation was [...] restriction. Performing Organization Address City/State/Zipcode Phone Number [facility] [address] [place] [address] Activated clotting time (02/13/2019 12:32 PM CDT)Only the most recent of7 resultswithin the time period is included. Activated clotting 160 (H) 96 - 152 sec [facility] Comment: HOSPITAL Meter ID: [id number] Exchange Operator: Norman Shepherd Specimen Performing Organization Address [facility] Mex[facility]ode Phone Number [facility] DEPARTMENT OF PATHOLOGY AND [address] [place] [address] GENOMIC MEDICINE [facility] [address] [place] [address] ECG Pre/Post Op (02/13/2019 6:53 AM CDT) Ventricular rate 79 [facility] Atrial rate 79 [facility] NM interval 152 [facility] QRSD interval 92 [...] ECG of 09-OCT-2018 08:17,-No significant change was [facility] MUSE found- Specimen Narrative Performed At Performing Organization Address [facility] Phone Number [facility] MUSE [address] [place] [address] Type and screen (02/13/2019 6:15 AM CDT)Only the most recent of2 resultswithin the time period is included. ABO grouping A [facility] Rh type NEG [facility] Antibody screen (gel) NEG [facility] Specimen Blood Performing Organization Address City/[facility]/Zipcode Phone Number [facility] DEPARTMENT OF PATHOLOGY AND [address] [place] [address] [place] [address] POC glucose (10/21/2018 7:43 PM STENCILER)Only the most recent of96 resultswithin the time period is included. POC glucose 133 (H) 65 - 99 mg/dL [facility] Comment: HOSPITAL [facility] Notified RN Meter ID: [id number] Exchange Operator: Marilyn Fontanez Specimen Performing Organization Address City/[facility]/Zipcode Phone Number [facility] DEPARTMENT OF PATHOLOGY AND [address] [place] [address] Phosphorus level (10/20/2018 12:37 AM STENCILER)Only the most recent of12 resultswithin the time period is included. [facility] Phosphorus 2.7 2.4 - 4.5 mg/dL [facility] Specimen Plasma specimen Performing Organization Address City/[facility] Phone Number [facility] DEPARTMENT OF PATHOLOGY AND [address] [place] [address] XR Abdomen 2 Vw Ap W Upright And/Or Decubitus (10/18/2018 10:00 AM STENCILER) Specimen Narrative Performed At EXAMINATION: XR ABDOMEN [...] right rib fractures. Spondylosis. Bilateral hip arthroplasties. [facility]-[id number] Procedure Note Hm Interface, Radiology Results Incoming - 10/18/2018 11:32 AM STENCILER EXAMINATION: XR ABDOMEN 2 VW AP W [...] right rib fractures. Spondylosis. Bilateral hip arthroplasties. [facility]-[id number] Performing Organization Address City/State/Zipcode Phone Number [facility] [address] [place] [address] Triglycerides (10/18/2018 4:00 AM STENCILER) Triglycerides 227 (H) <150 mg/dL [facility] Specimen Plasma specimen Performing Organization Address City/[facility]ode Phone Number [facility] DEPARTMENT OF PATHOLOGY AND [address] [place] [address] GENOMIC MEDICINE [facility] [address] [place] [address] Unsuccessful Attempt - PICC (10/07/2018 2:08 PM STENCILER) Narrative Performed At Felice Keller RN 10/07/20182:13 PM Unsuccessful Attempt - PICC Date/Time: 10/07/2018 2:08 PM Performed by: Duy Vaughn Authorized by: Yo Khan MD Consent: Consent obtained:Verbal Consent given by:Patient Risks discussed: arterial puncture, incorrect placement, bleeding, infection, superficial thrombus and deep vein thrombus [place] protocol: Procedure explained and questions answered to [...] placement. Hemoglobin & hematocrit (10/07/2018 1:25 PM STENCILER) HGB 10.2 (L) 14.0 - 18.0 g/dL [facility] HCT 34.0 (L) 41.0 - 51.0 % [facility] Specimen Blood Performing Organization Address City/[facility]ode Phone Number [facility] DEPARTMENT OF PATHOLOGY AND [address] [place], [place] [address] [place] [address] XR Chest 1 Vw Portable (10/07/2018 6:41 AM STENCILER)Only the most recent of3 resultswithin the time period is included. Specimen Narrative Performed At EXAMINATION:XR CHEST 1 VW PORTABLE [employer] CLINICAL HISTORY:Ventilator Patient COMPARISON:October 06 IMPRESSION: October 06 1. Central line and visualized feeding tube are stable. 2. Pulmonary volumes remain diminished. Pulmonary congestion is unchanged. Overall appearance of the chest is similar. Procedure Note Interface, Radiology Results Incoming - 10/07/2018 7:31 AM STENCILER EXAMINATION: XR CHEST 1 VW PORTABLE CLINICAL HISTORY: Ventilator Patient COMPARISON: October 06 IMPRESSION: October 06 1. Central line and visualized feeding tube are stable. 2. Pulmonary volumes remain diminished. Pulmonary congestion is unchanged. Overall appearance of the chest is similar. Performing Organization Address City/[facility]/Zipcode Phone Number [employer] [address] [place] [address] LDH (10/07/2018 3:04 AM STENCILER) LDH 147 87 - 225 U/L [facility] Specimen Plasma specimen Performing Organization Address City/[facility]/Zipcode Phone Number [facility] DEPARTMENT OF PATHOLOGY AND [address] [place] [address] [address] Hepatic function panel (10/07/2018 3:04 AM STENCILER) Albumin 2.8 (L) 3.5 - 5.0 g/dL [facility] Total bilirubin 0.3 0.0 - 1.2 [facility] mg/dL [facility] Bilirubin direct <0.2 0.0 - 0.3 [facility] mg/dL [facility] Alkaline phosphatase 75 40 - 129 U/L [facility] Protein 5.6 (L) 6.3 - 8.3 g/dL [facility] Comment: HOSPITAL [place] 4.6-7.0 g/dL 1 week 4.4-7.6 g/dL 7 months-1year5.1-7.3 g/dL 1-2 years5.6-7.5 g/dL >3 years6.0-8.0 g/dL 18-150 6.3-8.3 g/dL ALT 12 5 - 50 U/L [facility] AST 12 10 - 50 U/L [facility] Specimen Plasma specimen Performing Organization Address City/[facility] Phone Number [facility] DEPARTMENT OF PATHOLOGY AND [address] [place] [address] Ionized calcium (10/06/2018 3:37 PM STENCILER) pH 7.37 [facility] Ionized calcium 1.15 1.11 - 1.32 mmol/L [facility] Specimen Plasma specimen Performing Organization Address City/[facility] Phone Number [facility] DEPARTMENT OF PATHOLOGY AND [address] [place] [address] Ionized calcium, arterial (10/06/2018 6:50 AM STENCILER)Only the most recent of3 resultswithin the time period is included. Ionized calcium, 1.08 (L) 1.11 - 1.32 [facility] arterial mmol/L HOSPITAL Specimen Blood Performing Organization Address City/[facility]/Zipcode Phone Number [facility] DEPARTMENT OF PATHOLOGY AND [address] [place] [address] Copper level, serum (10/06/2018 6:50 AM STENCILER) Copper 89 70 - 140 ug/dL [facility] Comment: INTERPRETIVE INFORMATION: Copper, Serum [...] or malabsorption. See Compliance Statement B at [email or web address] Performed by [facility], [address] [place] [phone] [email or web address], Solitario Cardona MD - Lab. Director Specimen Blood Performing Organization Address [facility]ode Phone Number [facility] [address] [place] [address] [facility] [address] [place] [phone] Zinc level, serum (10/06/2018 6:50 AM STENCILER) Pathologist [facility] Zinc 25 (L) 60 - 120 ug/dL [...] absorption. Test developed and characteristics determined by [facility]. See Compliance Statement B: [employer]/CS Performed by [facility], [address] [place] [phone] [email or web address], Solitario Cardona MD - Lab. Director Specimen Blood Performing Organization Address [facility] Phone Number [facility] [address] [place] [address] [facility] [address] [place] [address] Partial thromboplastin time, activated (10/06/2018 6:50 AM STENCILER)Only the most recent of2 resultswithin the time period is included. Pathologist [facility] PTT 31.5 23.0 - 36.0 [facility] Comment: [facility] PTT therapeutic range for unfractionated heparin is 61.0-112.0 seconds which corresponds to Anti-Xa 0.3-0.7 U/ml. Specimen Blood Performing Organization Address [facility]/Zipcode Phone Number [facility] DEPARTMENT OF PATHOLOGY AND [address] [address] Arterial blood gas (10/06/2018 6:50 AM STENCILER)Only the most recent of2 resultswithin the time period is included. pH, arterial 7.30 (L) 7.35 - 7.45 [facility] pCO2, arterial 43 35 - 45 mmHg [facility] pO2, arterial 174 (H) 80 - 90 mmHg [facility] Bicarbonate, 20.4 (L) 21.0 - 28.0 [facility] mmol/L HOSPITAL Base excess, -5 (L) -2 - 2 mEq/L [facility] O2 saturation, 99 95 - 100 % [facility] Specimen Blood Performing Organization Address City/[facility] Phone Number [facility] DEPARTMENT OF PATHOLOGY AND [address] [place] [address] Lactic acid level (10/06/2018 6:27 AM STENCILER)Only the most recent of2 resultswithin the time period is included. Pathologist [facility] Lactic acid 2.3 (H) 0.5 - 2.2 mmol/L [facility] Specimen Plasma specimen Performing Organization Address City/[facility] Phone Number [facility] DEPARTMENT OF PATHOLOGY AND [address] [place] [address] Comprehensive metabolic panel (10/06/2018 6:27 AM STENCILER) Sodium 141 135 - 148 [facility] mEq/L [facility] Potassium 3.3 (L) 3.5 - 5.0 [facility] mEq/L [facility] Chloride 105 98 - 112 mEq/L [facility] CO2 21 (L) 24 - 31 mEq/L [facility] Anion gap 15@ANIO 7 - 15 mEq/L [facility] BUN 19 6 - 20 mg/dL [facility] Creatinine 0.78 0.70 - 1.20 [facility] mg/dL [facility] Glucose 181 (H) 65 - 99 mg/dL [facility] Calcium 8.2 (L) 8.3 - 10.2 [facility] mg/dL [facility] Protein 5.2 (L) 6.3 - 8.3 g/dL [facility] Comment: HOSPITAL 4.6-7.0 g/dL 1 week 4.4-7.6 g/dL 7 months-1year5.1-7.3 g/dL 1-2 years5.6-7.5 g/dL >3 years6.0-8.0 g/dL 18-150 6.3-8.3 g/dL Albumin 3.0 (L) 3.5 - 5.0 g/dL [facility] A/G ratio 1.4 0.7 - 3.8 [facility] Alkaline phosphatase 68 40 - 129 U/L [facility] AST 12 10 - 50 U/L [facility] ALT 9 5 - 50 U/L [facility] Total bilirubin 0.6 0.0 - 1.2 [facility] mg/dL [facility] Specimen Plasma specimen Performing Organization Address City/[facility] Phone Number [facility] DEPARTMENT OF PATHOLOGY AND [address] [place] [address] Prealbumin level (10/06/2018 6:21 AM STENCILER) Prealbumin 14 (L) 16 - 32 mg/dL [facility] Specimen Serum Performing Organization Address [facility] Phone Number [facility] DEPARTMENT OF PATHOLOGY AND [address] [place] [phone] Sodium level, syringe (10/06/2018 4:53 AM STENCILER)Only the most recent of2 resultswithin the time period is included. Sodium, syringe 137 135 - 148 mEq/L [facility] Specimen Blood Performing Organization Address City/[facility] Phone Number [facility] DEPARTMENT OF PATHOLOGY AND [address] [place] [address] Potassium, syringe (10/06/2018 4:53 AM STENCILER)Only the most recent of2 resultswithin the time period is included. Potassium, syringe 3.2 (L) 3.5 - 5.0 mEq/L [facility] Specimen Blood Performing Organization Address City/[facility] Phone Number [facility] DEPARTMENT OF PATHOLOGY AND [address] [place] [address] [place] [address] Hemoglobin, syringe (10/06/2018 4:53 AM STENCILER)Only the most recent of2 resultswithin the time period is included. Hemoglobin, syringe 11.4 (L) 14.0 - 18.0 g/dL [facility] Specimen Blood Performing Organization Address City/[facility] Phone Number [facility] DEPARTMENT OF PATHOLOGY AND [address] [place] [address] Glucose level, syringe (10/06/2018 4:53 AM STENCILER)Only the most recent of2 resultswithin the time period is included. Glucose, syringe 189 (H) 65 - 99 mg/dL [facility] Specimen Blood Performing Organization Address [facility] Phone Number [facility] DEPARTMENT OF PATHOLOGY AND [address] [place] [address] Arterial blood gas, corrected (10/06/2018 4:53 AM STENCILER)Only the most recent of2 resultswithin the time period is included. pH, arterial 7.32 (L) 7.35 - 7.45 [facility] pCO2, arterial 41 35 - 45 mmHg [facility] pO2, arterial 135 (H) 80 - 90 mmHg [facility] Temperature, Celsius 36.1 Degrees C [facility] O2 saturation, 99 95 - 100 % [facility] arterial HOSPITAL pH, arterial 7.33 [facility]OSPITAL pCO2, arterial 40 mmHg [facility]OSPITAL pO2, arterial 130 mmHg [facility] HOSPITAL Base excess, arterial -5 (L) -2 - 2 mEq/L [facility] Specimen Blood Performing Organization Address City/[facility] Phone Number [facility] DEPARTMENT OF PATHOLOGY AND [address] [place] [address] Lactic acid, syringe (10/06/2018 2:10 AM STENCILER) Lactic acid, syringe 1.5 0.5 - 2.2 mmol/L [facility] Specimen Blood Performing Organization Address City/[facility] Phone Number [facility] DEPARTMENT OF PATHOLOGY AND [address] [place] [phone] [place] [phone] Urinalysis screen and microscopy, with reflex to culture (10/05/2018 10:48 PM STENCILER) Specimen site Random void [facility] Color, UA Yellow [facility] Appearance, UA Hazy [facility] Specific gravity, 1.030 1.001 - 1.035 [facility] pH, UA 5.0 5.0 - 8.5 [facility] Protein, UA 1+ (A) Negative [facility] Glucose, UA Negative Negative [facility] Ketones, UA Negative Negative [facility] Bilirubin, UA Negative Negative [facility] Blood, UA Large (A) Negative [facility] Nitrite, UA Negative Negative [facility] Urobilinogen, UA SEE COMMENT <2.0 [facility] Comment: HOSPITAL Footnote--------- UNABLE TO REPORT Leukocyte Moderate (A) Negative [facility] esterase, HOSPITAL WBC, UA 92 (H) 0 - 1 /HPF [facility] RBC, UA 80 (H) 0 - 5 /HPF [facility] Bacteria, UA None seen None seen [facility] Yeast, UA Moderate (A) [facility] Yeast with Few (A) [facility] pseudohyphae, HOSPITAL Specimen Urine Performing Organization Address [facility] Phone Number [facility] DEPARTMENT OF PATHOLOGY AND [address] [place] [address] [address] Gram stain (10/05/2018 10:48 PM STENCILER) Gram stain result Moderate WBC's [facility] Comment: Specimen Information Specimen Source: Urine Specimen Site: Random void Specimen Urine - Random void Performing Organization Address City/[facility]/Zipcode Phone Number [facility] DEPARTMENT OF PATHOLOGY AND [address] [place] [address] [address] Urine culture (10/05/2018 10:48 PM STENCILER) Urine culture Malgorzata albicans [facility] 10-5 cfu/ml [facility] The performance characteristics of this assay on this isolate were validated by the Microbiology Laboratory at .This source has not been approved by the [...] Urine - Random void Performing Organization Address City/[facility] Phone Number [facility] DEPARTMENT OF PATHOLOGY AND [address] [place] [address] Anti Xa Rivaroxaban (10/05/2018 9:04 PM STENCILER) [facility] Anti Xa, 40 ng/mL [facility] Rivaroxaban Comment: MANDAEISM This test was developed and its performance characteristics HOSPITAL determined by [facility] in a manner consistent with [...] ___LACID results called to and read back [facility] DEPARTMENT OF PATHOLOGY AND GENOMIC by KALEBMARCIA GIRON/ESTER(name/location) 10/05/2018 2106___ (date/time) by FUAD__. LAURA MENDOSA FROM PHARMACY ADD ON RIVXA 10/05/201821:33 Performing Organization Address [facility]/Zipcode Phone Number [facility] DEPARTMENT OF PATHOLOGY AND [address] [place] [address] XR Abdomen 1 Vw Portable (10/05/2018 8:49 PM STENCILER) Specimen Addenda Addendum by Jaiden Zelaya MD [...] Patient is status post bilateral hip arthroplasty. [facility]-[id number] Procedure Note Interface, Radiology Results Incoming - 10/05/2018 9:05 PM STENCILER EXAMINATION: XR ABDOMEN 1 VW PORTABLE CLINICAL [...] Patient is status post bilateral hip arthroplasty. [facility]-[id number] Performing Organization Address City/State/Zipcode Phone Number [facility] [address] [place] [address] Prepare fresh frozen plasma (10/05/2018 7:46 PM STENCILER) Product name Thawed Plasma [facility] Unit number [id number] [facility] Product code [id number] [facility] Dispense status Returned to BB not [facility] transfused HOSPITAL Blood expiration [id number] [facility] Blood type code 6200 [facility] Blood type A POSITIVE [facility] Product name Thawed Plasma [facility] Unit number [id number] [facility] Product code [id number] [facility] Dispense status Returned to BB not [facility] transfused HOSPITAL Blood expiration [id number] [facility] Blood type code 0600 [facility] Blood type A NEGATIVE [facility] Product name Thawed Plasma [facility] Unit number [id number] [facility] Product code [id number] [facility] Dispense status Returned to BB not [facility] HOSPITAL Blood expiration [id number] [facility] Blood type code 0600 [facility] Blood type A NEGATIVE [facility] Product name Thawed Plasma [facility] Unit number [id number] [facility] Product code [id number] [facility] Dispense status Returned to BB not [facility] transfused HOSPITAL Blood expiration [id number] [facility] Blood type code 0600 [facility] Blood type A NEGATIVE [facility] Specimen Performing Organization Address City/[facility]/Zipcode Phone Number [facility] DEPARTMENT OF PATHOLOGY AND [address] [place] [address] GENOMIC MEDICINE [address] [address] Prepare RBC (10/05/2018 7:46 PM STENCILER) [facility] Product name Apheresis Red Cell [facility] AS3 #2 HOSPITAL Unit number [id number] [facility] Product code [id number] [facility] Dispense status Returned to BB not [facility] transfused HOSPITAL Blood expiration [id number] [facility] Blood type code 0600 [facility] Blood type A NEGATIVE [facility] Product name Apheresis Red Cell [facility] AS3 #1 HOSPITAL Unit number [id number] [facility] Product code [id number] [facility] Dispense status Returned to BB not [facility] transfused HOSPITAL Blood expiration [id number] [facility] Blood type code 0600 [facility] Blood type A NEGATIVE [facility] Product name Apheresis Red Cell [facility] AS3 #2 LR HOSPITAL Unit number [id number] [facility] Product code [id number] [facility] Dispense status Returned to BB not [facility] Blood expiration [id number] [facility] Blood type code 0600 [facility] Blood type A NEGATIVE [facility] Product name Apheresis Red Cell [facility] AS3 [facility]2 LR H[facility]PITAL Unit number [id number] [facility] Product code [id number] [facility] Dispense status Returned to BB not [facility] Blood expiration [id number] [facility] Blood type code 0600 [facility] Blood type A NEGATIVE [facility] Specimen Performing Organization Address City/[facility]/Zipcode Phone Number [facility] DEPARTMENT OF PATHOLOGY AND [address] [place] [address] GENOMIC MEDICINE [facility] [address] [place] [address] CT Abd/Pelvic External Study (10/05/2018 12:23 PM STENCILER) Specimen Narrative Performed At This exam was not acquired at a [employer] facility and has not been [facility] interpreted by a [employer] Provider.The exam was imported into our imaging system for comparisons purposes. Performing Organization Address City/State/Zipcode Phone Number [facility] [address] [place] [address] Surgical pathology request (10/05/2018 8:36 AM STENCILER) [facility] DEPARTMENT OF PATHOLOGY AND GENOMIC MEDICINE Surgical pathology See link below [facility] DEPARTMENT OF report for PDF Lab PATHOLOGY AND Report GENOMIC MEDICINE Result status This is Final [facility] DEPARTMENT OF Report for PATHOLOGY AND [id number] GENOMIC MEDICINE Specimen Performing Organization Address [facility] Phone Number [facility] DEPARTMENT OF PATHOLOGY AND [address] [place] [address] GENOMIC MEDICINE after 07/24/2018 Insurance Payer Benefit Plan / Subscriber ID Effective Dates Phone Address Type Group MEDICARE MEDICARE PART A xxxxxxxxxxx 2015-Present [place], [place] Medicare AND B CIGNA CIGNA OPEN xxxxxxxxxxx 2018-Present [facility] ACCESS/NETWORK Advance Directives For more information, please contact: [phone] Type Date 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
--- OUTSIDE RECORDS SUMMARY | 2019-07-25 09:38 | XMS REPORT | Clinical Summary ---
:1960 Author Organization [facility] Address [address] [place] [address] Care Team Providers Name Role Phone Unavailable [...] Not on file Results Not on fileafter 07/24/2018
--- OUTSIDE RECORDS SUMMARY | 2019-07-25 09:39 | XMS REPORT ---
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) use of opiate Z79.891 Active analgesic Problem Hematuria, unspecified R31.9 Active Problem Essential hypertension I10 Active Problem Depressive disorder, not elsewhere F32.9 Active classified Problem Encounter for long-term (current) Z79.899 Active use of other medications Problem Rheumatoid arthritis of multiple M05.79 Active sites without organ or system involvement with positive rheumatoid factor Problem Rheumatoid arthritis 714.0 Active Problem Unspecified essential hypertension 401.9 Active Assessment Rheumatoid arthritis of multiple M05.79 Active sites without organ or system involvement with positive rheumatoid factor Problem Generalized osteoarthrosis, 715.09 Active involving multiple sites Problem Cellulitis and abscess of leg, 682.6 Active except foot Medications Medication Code System Code Instructions Start Date End Date Status Dosage [facility] [id number] 5 MG Orally three Aug 29, Active 1 tablet times a day 2018 Results No Known Results Summary Purpose [employer]ClinicalWorks Submission
--- OUTSIDE RECORDS SUMMARY | 2019-07-25 09:39 | XMS REPORT | Continuity of Care Document ---
:1960 Author Organization [employer] Care Team Providers Name Role Phone [employer] Unavailable Unavailable Problems Problem Status Onset Classification [...] 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[facility] of head and neck of [place] femur Rheumatoid arthritis Active Problem 07/19/2019 [facility] [place] Unspecified Active Problem 07/19/2019 [facility] essential [place] hypertension Generalized Active Problem 07/19/2019 [facility] osteoarthrosis, [place] involving multiple sites USP (current) Active Problem 07/19/2019 [facility] use of opiate [place] analgesic Encounter for Active Problem 07/19/2019 [facility] of long-term (current) [place] use of other 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 [facility] [place] Pulmonary embolism Active Finding 02/16/[address] [facility] [place] Medications Medication Details Route Status Patient Ordering Order Source Instructions Provider Date PredniSONE 1 tablet Orally Active 5 MG Orally [facility] three times a 019 of [place] day Levofloxacin DAILY Active Tubbs [facility] [...] [facility] [place] Clonidine Hcl TWICE DAILY Active [facility] [place] Vancomycin Hcl Q12H Active Tubbs [facility]12 [facility] [place] Amox/Clavulanate TWICE DAILY Active Tubbs [facility] 012 [facility] [place] Nebivolol Hcl DAILY Active [facility]12 [facility] [place] Prednisone DAILY PRN Active [facility] For Pain 012 [facility] [place] Celecoxib DAILY Active [facility] 012 [facility] [place] Rabeprazole Active [facility] Sodium 012 [facility] [place] Allergies, Adverse Reactions, Alerts Substance Category Reaction Severity Reaction Status Date Comments Source type Reported infliximab Anaphylaxis Severe Allergy to Active [facility] Substance [facility] [place] latex Anaphylaxis Severe Allergy to Active [facility] Substance 8 [facility] [place] Latex, Anaphylaxis Severe Allergy to Active [facility] Natural Substance 8 [facility] Rubber [place] meperidine Nausea/Vomi Moderate Propensity Active [facility] HCl ting to adverse 8 [facility] [place] Immunizations Immunization Date Given Site Status Last Comments Source Updated Pneumovax 11/05/2014 completed [facility] [place] Results Order Name Results Value Reference Date Interpretation Comments Source Range Microbiolog Escherichia Escherichia 02/16 [facility] [address] y Studies Coli Coli /2017 [facility] [place] Laboratory Potassium 4.2 3.6 - 5.0 02/15 [facility] [address] Studies Level /2017 [facility] [place] [facility] Magnesium 2.1 1.8 - 2.5 02/15 [facility] [address] Studies Level /2017 [facility] [place] [facility] Hemoglobin 6.4 4 - 6.0 02/15 [facility] [address] Studies A1c [facility] [place] [facility] Thyroid 1.35 0.34 - 02/15 [facility] [address] Studies Stimulating 5.60 [facility] Hormone (TSH) [place] [facility] Total 0.6 0.3 - 1.2 02/15 [facility] [address] Studies Bilirubin [facility] [place] [facility] Serum Total 7.2 6.0 - 8.3 02/[address] Studies Protein [facility] [place] [facility] Globulin 3.2 2.3 - 3.5 02/15 [facility]. Studies /2017 [facility] [place] Laboratory Estimat 64 90 02/15 [facility] [place] [facility]. Studies Glomerular /2017 [facility] Filtration [place] Rate Laboratory Creatinine 1.18 0.61 - 02/15 [facility] [place] [facility]. Studies 1.24 /2017 [facility] [place] Laboratory Blood Urea 24 6 - 20 02/15 [facility] [place]. Studies Nitrogen /2017 [facility] [place] Laboratory Aspartate 18 10 - 42 02/15 [facility] [place] [facility]. Studies Amino Transf /2017 [facility] (AST/SGOT) [place] Laboratory Alkaline 111 42 - 121 02/15 [facility] [place] [facility]. Studies Phosphatase /2017 [facility] [place] Laboratory Albumin/Globu 1.3 1.1 - 1.8 02/15 [facility] Studies ritesh Ratio /2017 [facility] [place] Laboratory Albumin 4.0 3.2 - 5.5 02/15 [facility] [place] [facility]. Studies /2017 [facility] [place] Laboratory Alanine 20 10 - 60 02/15 [facility] Studies Aminotransfer /2017 [facility] ase [place] (ALT/SGPT) Laboratory Sodium Level 134 135 - 145 02/15 [facility] [address] Studies /2017 [facility] [place] Laboratory Glucose Level 143 65 - 120 02/15 [facility] [place] [facility]. Studies /2017 [facility] [place] Laboratory Chloride 97 101 - 111 02/15 [facility] [place] [facility]. Studies Level /2017 [facility] [place] Laboratory Carbon 27 21 - 31 02/15 [facility] Studies Dioxide Level /2017 [facility] [place] Laboratory Calcium Level 9.2 8.5 - 10.5 02/15 [facility] [place]. Studies /2017 [facility] [place] Laboratory White Blood 14.6 4.3 - 10.9 02/15 [facility] Studies Count /2017 [facility] [place] Laboratory Red Cell 15.1 12.1 - 02/15 [facility]. Studies Distribution 15.2 /2017 [facility] Width [place] Laboratory Red Blood 4.52 4.33 - 02/15 [facility] Studies Count 5.43 /2017 [facility] [place] Laboratory Platelet 301 152 - 406 02/15 [facility] [place] [facility]. Studies Count /2017 [facility] [place] Laboratory Neutrophils % 71.3 41.7 - 02/15 [facility] [place] [facility]. Studies 73.7 /2017 [facility] [place] Laboratory Monocytes % 7.1 3.3 - 12.3 02/15 [facility] [address] Studies /2017 [facility] [place] Laboratory Mean Platelet 9.2 7.6 - 11.3 02/15 [facility] [address] Studies Volume /2017 [facility] [place] Laboratory Mean 90.2 80 - 100 02/15 [facility] [place]. Studies Corpuscular /2017 [facility] Volume [place] Laboratory Mean 32.7 32.0 - 02/15 [facility] [address] Studies Corpuscular 36.0 [facility] Hemoglobin [place] Concent Laboratory Mean 29.5 27.0 - 02/15 [facility] [place]. Studies Corpuscular 35.0 [facility] Hemoglobin [place] Laboratory Lymphocytes % 18.0 15.3 - 02/15 [facility] [address] Studies 44.8 /2017 [facility] [place] Laboratory Hemoglobin 13.3 13.6 - 02/[address] [facility] [address] Studies 17.9 [facility] [place] [facility] Hematocrit 40.8 39.6 - 02/[address] [facility] [address] Studies 49.0 [facility] [place] [facility] Eosinophils % 2.8 0 - 4.4 02/15 [facility] [address] Studies [facility] [place] [facility] Basophils % 0.8 0 - 1.3 02/[address] [facility] [address] Studies [facility] [place] Laboratory Absolute 10.4 1.8 - 8.0 02/15 [facility] [place]. Studies Neutrophil [facility] [place] [facility] Absolute 1.0 0.1 - 1.3 02/15 [facility] [place]. Studies Monocytes [facility] (CBC) [place] Laboratory Absolute 2.6 0.7 - 4.9 02/15 [facility] [address] Studies Lymphocytes [facility] (CBC) [place] Laboratory Absolute 0.4 0 - 0.5 02/15 [facility] [place]. Studies Eosinophils [facility] (CBC) [place] Laboratory Absolute 0.1 0 - 0.5 02/15 [facility] [place]. Studies Basophils [facility] (CBC) [place] Laboratory Urine WBC >50 02/14 [facility] [address] Studies [facility] [place] [facility] Urine <5 02/14 [facility] [address] Studies Squamous [facility] Epithelial [place] Cells Laboratory Urine RBC Urine RBC 02/14 [facility] [address] Studies [facility] [place] [facility] Urine Mucus Urine Mucus 02/14 [facility] [address] Studies /2017 [facility] [place] Laboratory Urine Culture Urine 02/14 [facility] Studies Reflexed Culture /2017 [facility] Reflexed [place] Laboratory Urine Urine 02/14 [facility] Studies Bacteria Bacteria /2017 [facility] [place] Laboratory Urine pH 5.5 02/14 St. Studies /2017 [facility] [place] Laboratory Urine 1.0 02/14 [facility] Studies Urobilinogen /2017 [facility] [place] [facility] Urine Total Urine Total 02/14 [facility] [place] [facility]. Studies Protein Protein /2017 [facility] [place] Laboratory Urine 1.010 02/14 [facility] [place] [facility]. Studies Specific /2017 [facility] [place] Laboratory Urine Nitrite Urine 02/14 [facility] Studies Nitrite /2017 [facility] [place] [facility] Urine Urine 02/14 [facility] Studies Leukocyte Leukocyte /2017 [facility] Esterase Esterase [place] [facility] Urine Ketones Urine 02/14 [facility] Studies Ketones /2017 [facility] [place] [facility] Urine Glucose Urine 02/14 [facility] [place] [facility]. Studies Glucose /2017 [facility] [place] [facility] Urine Color Urine Color 02/14 [facility] [address] Studies /2017 [facility] [place] [facility] Urine Blood Urine Blood 02/14 [facility] [place] [facility]. Studies /2017 [facility] [place] [facility] Urine Urine 02/14 [facility] Studies Bilirubin Bilirubin /2017 [facility] [place] [facility] Urine Urine 02/14 [facility] Studies Appearance Appearance /2017 [facility] [place] Laboratory Blood Blood 01/28 [facility] Studies Morphology Morphology /2017 [facility] - Comment Comment [place] Laboratory Vancomycin 13.0 5 - 20 01/14 [facility] Studies Level Trough /2017 [facility] [place] Laboratory Segmented 72 40 - 80 01/06 [facility] [place]. Studies Neutrophils /2017 [facility] [place] Laboratory Monocytes 6 0 - 10 01/06 [facility] [address] Studies /2017 [facility] [place] Laboratory Metamyelocyte 1 0 - 0 01/06 [facility] [place] [facility]. Studies s /2017 [facility] [place] Laboratory Lymphocytes 15 15 - 42 01/06 [facility] [place]. Studies /2018 [facility] [place] Laboratory Eosinophils 6 0 - 3 01/06 [facility] [place] [facility]. Studies /2017 [facility] [place] [facility] Atypical 3 01/03 [facility] [place]. Studies Lymphocytes /2017 [facility] [place] Laboratory Troponin I <0.03 12/[address] Studies 2018 [facility] [place] Laboratory Procalcitonin <0.05 12/[address] Studies /2017 [facility] [place] Laboratory Direct 0.1 0 - 0.2 12/27 [facility] Studies Bilirubin [facility] [place] Laboratory Creatine 0.7 0.3 - 4.0 12/27 [facility] [address] Studies Kinase MB /2017 [facility] [place] [facility] Creatine 13 22 - 269 12/27 [facility] [address] Studies Kinase /2017 [facility] [place] Laboratory Lactic Acid 12.5 4.5 - 19.8 12/27 [facility] Studies Level /2017 [facility] [place] Laboratory B-Type 15 12/27 [facility] [address] Studies Natriuretic [facility] Peptide [place] Laboratory Lipase 18 22 - 51 12/27 [facility] [address] Studies [facility] [place] Laboratory Rapid <0.03 12/27 [facility] [address] Studies Troponin I [facility] [place] Laboratory Prothrombin 19.7 9.5 - 12.5 12/27 [facility] [address] Studies Time [facility] [place] [facility] INR 1.66 12/27 [facility] [address] Studies International /2017 [facility] Normalized [place] Ratio Laboratory Activated 38.0 24.3 - 12/27 [facility] [address] Studies Partial 36.9 [facility] Thromboplast [place] Time Pathology Reports No Data Provided for This Section Diagnostic Reports No Data Provided for This Section Consultation Notes No Data Provided for This Section Discharge Summaries No Data Provided for This Section History and Physicals No Data Provided for This Section Vital Signs Vital Sign Value Date Comments Source Heart Rate 70 02/16/[address] [facility] [place] Systolic (mm Hg) 102 02/16/[address] [facility] [place] Diastolic (mm Hg) 60 02/16/[address] [facility] [place] Temperature Oral (F) 99.6 F 02/16/[address] [facility] [place] Respitory Rate 14 02/16/[address] [facility] [place] Height 74 02/15/[address] [facility] [place] Weight 380 02/15/[address] [facility] [place] Encounters Location Location Encounter Encounter Reason Attending ADM DC Status Source Details Type Number For Provider Date Date Visit [facility] [id number] 12/27 01/04 [facility] [place] [facility] Registered [id number] 01/[address] [facility] [place] [facility] Registered [id number] 01/[address] [facility] [place] [facility] Registered [id number] 01[facility]14 [facility] [place] [facility] Registered [id number] 01[facility] [facility] [place] [facility] Registered [id number] 02/14 [facility] [place] [facility] Discharged [id number] 02/15 02/16 [facility] [place] Procedures Procedure Code Date Perfomer Comments Source Anaerobic Blood 02/15/[address] [facility] [place] Aerobic Blood 02/15/2018 [facility] Culture [place] [id number] 02/14/2018 [facility] [place] Count [id number] 02/14/2018 [facility] [place] Gram Stain [id number] 12/28/2017 [facility] [place] Anaerobic [id number] 12/28/2017 [facility] - Culture [place] Anaerobic Blood [id number] 12/27/2017 [facility] - Culture [place] Aerobic Blood [id number] 12/27/2017 [facility] - Culture [place] Abdomen & Pelvis [id number] 12/27/2017 [facility] - W Contrast [place] Chest Single [id number] 12/27/[address] [facility] [address] - View [place] DRAINAGE OF ABD [id number] 12/27/[address] [facility] [place] - SUBCU/FASCIA, [place] OPEN APPROACH Assessment and Plan No Data Provided for This Section Plan of Care Plan of Care Date Source Instructions 02/16/2018 [facility] . [facility] [place] [facility] for Urinary Tract Infection (UTI) PROBLEM: urinary tract infection GOAL: Clear understanding of disease process INSTRUCTIONS: continue all prior home medications and start Levaquin as prescribed, followup with Dr. Tubbs in one month. DC wound vac, clean wound and pack with quarter inch plain packing daily Instructions 02/16/[address] [facility] - [place] DI for Urinary Tract Infection (UTI) PROBLEM: urinary tract infection GOAL: Clear understanding of disease process INSTRUCTIONS: continue all prior home medications and start Levaquin as prescribed, followup with Dr. Tubbs in one month. DC wound vac, clean wound and pack with quarter inch plain packing daily Social History Social History Date Source Query Response Date Recorded Comment 02/16/[address] [facility] [place] Alcohol Use? No February 15, 2018 2:29pm CD- Drugs? No February 15, 2018 2:29pm Query Response Start Date Stop Date Smoking Status Never smoker Family History Value Date Source Query Response Instance Date Recorded Comment 02/16/2018 [facility] Yoo - [place] Nurses notes Lung Cancer Mother February 15, [...] Advance Directive Response Recorded Date/Time 02/16/2018 SY[facility] [place] - Does Patient Have Living Will [place] Yes February 16, 2018 6:00am Durable Power of Passenger T[employer] Builder for Health Care Yes February 15, 2018 2:29pm Would you like additional information No February 15, 2018 2:29pm Functional Status No Data Provided for This Section
--- OUTSIDE RECORDS SUMMARY | 2019-07-25 09:39 | XMS REPORT ---
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
--- OUTSIDE RECORDS SUMMARY | 2019-07-25 09:39 | XMS REPORT ---
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
--- OUTSIDE RECORDS SUMMARY | 2019-07-25 09:39 | XMS REPORT ---
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
[2019-07-25] MEDS ORDERED: NA CHLORIDE 0.9% 1,000 ML ONE (09:48)
[2019-07-25] MEDS ORDERED: ONDANSETRON 4 MG/2 ML VIAL ONE (10:12)
[2019-07-25] MEDS ORDERED: PROPOFOL 200 MG/20 ML VIAL IV ONE ×2 (10:12)
[2019-07-25] MEDS ORDERED: LIDOCAINE 1% MPF 5 ML VIAL ONE (10:12)
[2019-07-25 11:13] VITALS: TEMP 97.8
[2019-07-25 11:22] VITALS: BP 116/72; O2SAT 92
--- NOTE | 2019-07-25 22:15 | OP ---
Surgeon: Elver Norton MD Procedure To Be Performed: Esophagogastroduodenoscopy. Indication For Procedure: Nausea, vomiting, abdominal pain. Plan For Anesthesia: Monitored anesthesia care. Complexity: High due to patient's comorbidities. Technique: After obtaining informed consent from the patient and explaining risks and complications, which include but are not limited to bleeding, infection, perforation, and anesthesia complication, the patient was placed in the supine position, and sedation was given. From then on, the scope was a dvanced through the mouth and carefully guided up to the second portion of the duodenum. After the c ompletion of examination, scope and equipment were withdrawn, and procedure terminated in a safe overton er. During the whole procedure, patient's oxygen saturation was being monitored. He did have a temp orary drop in saturation to 70% because he appeared to have momentarily stopped breathing, but with A mbu bag, his saturations was quickly brought back up, and the procedure was able to successfully comp leted. Findings: Esophagus: No gross lesion seen in the upper and mid esophagus. A small to moderate size d hiatal hernia seen in the distal part. The Z-line was irregular. Biopsies taken. Stomach: Mild patchy erythema seen in the antrum and body. Biopsies taken. In the fundus, large pr ominent folds were visualized. There was initially a concern for varices, but after probing with the forceps, they did not appear venous in nature. Therefore, biopsies were taken without any significa nt bleeding. Duodenum: The bulb and second portion appeared normal. Complications: None. Tolerance To Anesthesia: Excellent. Postoperative Diagnoses: Hiatal hernia, gastritis, abnormal gastric folds. Also of note, we could n ot spend detailed time in this examination due to the patient's desaturation and Anesthesia's recomme ndation to decrease the duration of the procedure. Plan: 1.Await pathology results. 2.Oral PPI. 3.Follow up in the GI clinic as needed. 4.If any future procedure is planned, we have to take into account his high risk status in regard to anesthesia. /KENDALL Voice ID: [id number] Report ID: [id number]
== END 2019-07-25 11:22 | disposition home or self-care (01) ==
LOC: OR 09:31
PROVIDERS: ATTEND Internal Medicine Gastroenterology
PROC: 0DB68ZX Excision of Stomach, Via Natural or Artificial Opening Endoscopic, Diagnostic (ICD-10-PCS; 2019-07-25)
PROC: 0DB38ZX Excision of Lower Esophagus, Via Natural or Artificial Opening Endoscopic, Diagnostic (ICD-10-PCS; principal; 2019-07-25 10:30)
DX: K29.50 Unspecified chronic gastritis without bleeding (principal); K44.9 Diaphragmatic hernia without obstruction or gangrene; E11.9 Type 2 diabetes mellitus without complications; M19.90 Unspecified osteoarthritis, unspecified site; G47.33 Obstructive sleep apnea (adult) (pediatric); Z68.42 Body mass index [BMI] 45.0-49.9, adult; E66.01 Morbid (severe) obesity due to excess calories; Z99.3 Dependence on wheelchair; Z79.01 Long term (current) use of anticoagulants; Z88.6 Allergy status to analgesic agent; Z88.8 Allergy status to other drugs, medicaments and biological substances; Z91.040 Latex allergy status
CPT/HCPCS: 88312; 82962; 88305; 43239; J2704 ×2; J7030; J2405

== ENCOUNTER 2019-09-14 18:26 | Inpatient (IN) | payer OTHER ==
[2019-09-14] MEDS ORDERED: PROMETHAZINE 25 MG/ML VIAL ONE ×2 (19:10→20:20)
[2019-09-14] MEDS ORDERED: FENTANYL CITR 100 MCG/2 ML ONE (19:11)
[2019-09-14 19:26] LABS: Absolute Lymphocytes (CBC) 1.3 K/uL (0.7-4.9); Basophils % 0.5 % (0-1.3); Hematocrit 36.2 % (39.6-49.0); Lymphocytes % 15.1 % (15.3-44.8); MPV 8.4 fL (7.6-11.3); RBC Red Blood Cell Count 3.69 M/uL (4.33-5.43)
[2019-09-14 19:31] LABS: Protime INR 1.27
--- NOTE | 2019-09-14 19:58 | RAD REPORT ---
EXAM DESCRIPTION: RAD - Chest Single View - 09/14/2019 7:47 pm CLINICAL HISTORY: ABDOMINAL DISTENTION Chest pain. COMPARISON: Chest Pa And Lat (2 Views) dated 06/19/2019; Chest Pa And Lat (2 Views) dated 06/17/2019; Chest Single View dated 03/11/2019; Chest Pa And Lat (2 Views) dated 10/22/2018 FINDINGS: Portable technique limits examination quality. The lungs are grossly clear. The heart is normal in size. Right-sided venous catheter tip in the SVC.
[2019-09-14 20:15] LABS: ALT/SGPT 35 U/L (12-78); AST/SGOT 19 U/L (15-37); Albumin 3.3 g/dL (3.4-5.0); Alkaline Phosphatase 79 U/L (45-117); BUN Blood Urea Nitrogen 16 mg/dL (7-18); Bicarbonate 28 mmol/L (21-32); Bilirubin Direct 0.3 mg/dL (0-0.2); Bilirubin Total 0.9 mg/dL (0.2-1.0); CKMB Creatine Kinase MB < 1.0 ng/mL (0.3-3.6); Creatine Phosphokinase 70 U/L (39-308); Glucose Level 158 mg/dL (74-106); Lipase 150 U/L (73-393); Potassium 3.2 mmol/L (3.5-5.1); Protein, Total 6.6 g/dL (6.4-8.2); Sodium Level 138 mmol/L (136-145); Troponin (Emerg Dept Use Only) < 0.02 ng/mL (0.0-0.045)
[2019-09-14] MEDS ORDERED: HYDROMORPHONE HCL 0.5 MG/0.5 ML INJ ONE (20:20)
[2019-09-14] MEDS ORDERED: NA CHLORIDE 0.9% 50 ML IV ONE (20:20)
[2019-09-14] MEDS ORDERED: NA CHLORIDE 0.9% 1,000 ML ONE (20:20)
[2019-09-14 20:41] LABS: Urine Amorphous Sediment 1+ /HPF (NONE SEEN); Urine Bacteria 20-50 /HPF (NONE SEEN); Urine Culture Reflex Order REFLEXED; Urine RBC <5 /HPF (NONE SEEN)
[2019-09-14 20:42] LABS: Urine Blood NEGATIVE (NEG); Urine Glucose NEGATIVE (NEG); Urine Protein TRACE (NEG); Urine pH 5.5 (5.0-7.0)
--- NOTE | 2019-09-14 20:58 | RAD REPORT ---
EXAM DESCRIPTION: CTAbdomen Pelvis W Contrast - 09/14/2019 8:48 pm CLINICAL HISTORY: Abdominal pain. Abd pain;Abdominal distention COMPARISON: Abdomen Pelvis W Contrast dated 06/13/2019; Abdomen Pelvis W Contrast dated 8; Abdomen Pelvis W Contrast dated 12/27/2017; Abdomen Pelvis W Contrast dated 10/16/2017 TECHNIQUE: Biphasic CT imaging of the abdomen and pelvis was performed with 100 ml non-ionic IV cont rast. All CT scans are performed using dose optimization technique as appropriate and may include automated exposure control or mA/KV adjustment according to patient size. FINDINGS: The lung bases are clear.Postsurgical changes are noted about the stomach. The liver, spleen, pancreas, adrenal glands and right kidney are within normal limits. The left kidne y is very atrophic. Cholecystectomy clips noted. Postsurgical clips are seen in the retroperitoneum. The colon appears quite filled with stool. There is a large pannus present a portion of which is not included on the examination. A bowel obstruction is not present. No pneumoperitoneum. No ascites, brian e air or abscess. Significant stool is retained in the colon. No evidence of significant lymphadenopa thy. Bilateral hip arthroplasties are present. IMPRESSION: No acute abnormality is detected. Moderate retained colonic stool seen with complex and large pannus present.
[2019-09-14] MEDS ORDERED: HYDROCORTISONE SUC 100 MG INJ ONE (21:23)
--- NOTE | 2019-09-14 21:25 | EDPHYS ---
Physician Documentation [facility] Name: Husam Vela Age: 58 yrs Sex: Male : 1960 Arrival Date: 09/14/2019 Time: 18:27 Bed 5 Private MD: Yuliana Tubbs C ED Physician Lane Cummings HPI: 09/14 21:19 This 58 yrs old Male presents to ER via Wheelchair with complaints of gs Abdominal Pain, Decreased Appetite. 21:19 The patient presents with abdominal pain that is diffuse. Onset: The symptoms/episode gs began/occurred 3 day(s) ago. The symptoms do not radiate. Associated signs and symptoms: Pertinent positives: vomiting. The symptoms are described as crampy, sharp. Modifying factors: The symptoms are alleviated by nothing, the symptoms are aggravated by food. Severity of pain: At its worst the pain was severe in the emergency department the pain has improved mildly. The patient has experienced similar episodes in the past, a few times. Historical: - Allergies: 18:54 Demerol; iw 18:54 Remicade; iw 18:54 Latex, Natural Rubber; iw - Home Meds: 18:54 acetazolamide 250 mg Oral tab 1 tab once daily [Active]; anakinra subcutaneous once iw daily [Active]; chlorthalidone 25 mg Oral tab 1 tab once daily [Active]; Cymbalta 60 mg Oral cpDR 2 caps once daily [Active]; folic acid 1 mg Oral tab 1 tab once daily [Active]; methotrexate (PF) subcutaneous [Active]; [place] 7.5-325 mg Oral tab 1 tab every 6 hours [Active]; prednisone 5 mg Oral tab 3 tabs once daily [Active]; Protonix 40 mg Oral chew 1 tab once daily [Active]; sotalol 120 mg Oral tab 1 tab 2 times per day [Active]; spironolactone 50 mg Oral tab 1 tab 2 times per day [Active]; Xarelto 20 mg Oral tab 1 tab once daily [Active]; - PMHx: 18:54 Atrial Fib; Hypertension; 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 - Social history:: Smoking status: Patient/guardian denies using tobacco. - Ebola Screening: : Patient negative for fever greater than or equal to 101.5 degrees Fahrenheit, and additional compatible Ebola Virus Disease symptoms Patient denies exposure to infectious person Patient denies travel to an Ebola-affected area in the 21 days before illness onset No symptoms or risks identified at this time. ROS: 21:19 All other systems are negative. gs 09/15 08:20 Constitutional: As noted elsewhere kdr Exam: 09/14 21:19 Head/Face: Normocephalic, atraumatic. Eyes: Pupils equal round and reactive to light, gs extra-ocular motions intact. Lids and lashes normal. Conjunctiva and sclera are non-icteric and not injected. Cornea within normal limits. Periorbital areas with no swelling, redness, or edema. ENT: Nares patent. No nasal discharge, no septal abnormalities noted. Tympanic membranes are normal and external auditory canals are clear. Oropharynx with no redness, swelling, or masses, exudates, or evidence of obstruction, uvula midline. Mucous membranes moist. Neck: Trachea midline, no thyromegaly or masses palpated, and no cervical lymphadenopathy. Supple, full range of motion without nuchal rigidity, or vertebral point tenderness. No Meningismus. Chest/axilla: Normal chest wall appearance and motion. Nontender with no deformity. No lesions are appreciated. Respiratory: Lungs have equal breath sounds bilaterally, clear to auscultation and percussion. No rales, rhonchi or wheezes noted. No increased work of breathing, no retractions or nasal flaring. Back: No spinal tenderness. No costovertebral tenderness. Full range of motion. MS/ Extremity: Pulses equal, no cyanosis. Neurovascular intact. Full, normal range of motion. Neuro: Awake and alert, GCS 15, oriented to person, place, time, and situation. Cranial nerves II-XII grossly intact. Motor strength 5/5 in all extremities. Sensory grossly intact. Cerebellar exam normal. Normal gait. Constitutional: The patient appears alert, awake, uncomfortable. Cardiovascular: Rate: tachycardic, Rhythm: regular, Pulses: no pulse deficits are appreciated, Heart sounds: Abdomen/GI: Palpation: moderate abdominal tenderness, in all quadrants, rebound tenderness, is not appreciated. Skin: Appearance: Color: pale. Vital Signs: 18:54 BP 103 / 89; Pulse 101; Resp 20; Temp 97.0(TE); Pulse Ox 96% on R/A; Weight 170.1 kg; iw Height 6 ft. 2 in. (187.96 cm); Pain 8/10; 19:52 BP 109 / 91; Pulse 101; Resp 18; Pulse Ox 92% on R/A; ak1 20:30 BP 115 / 90; Pulse 99; Resp 17; Temp 98.1; Pulse Ox 96% on R/A; ak1 21:45 BP 108 / 77; Pulse 89; Resp 14; Temp 98.2; Pulse Ox 98% on R/A; ak1 18:54 Body Mass Index 48.15 (170.10 kg, 187.96 cm) iw MDM: 19:57 Patient medically screened. gs 21:19 Differential diagnosis: bowel obstruction, gastritis, gastroesophageal reflux disease, gs pancreatitis, Peptic Ulcer Disease, urinary tract infection. Data reviewed: vital signs, nurses notes, old medical records, lab test result(s), radiologic studies. Counseling: I had a detailed discussion with the patient and/or guardian regarding: the historical points, exam findings, and any diagnostic results supporting the discharge/admit diagnosis. Response to treatment: the patient's symptoms have markedly improved after treatment, and as a result, I will admit patient. 09/14 18:54 Order name: Basic Metabolic Panel; Complete Time: 21:03 kdr 09/14 18:54 Order name: Blood Culture Adult (2) kdr 09/14 18:54 Order name: CBC with Diff; Complete Time: 19:57 kdr 09/14 18:54 Order name: Ckmb; Complete Time: 21:03 kdr 09/14 18:54 Order name: CPK; Complete Time: 21:03 kdr 09/14 18:54 Order name: Lactate; Complete Time: 19:57 kdr 09/14 18:54 Order name: LFT's; Complete Time: 21:03 kdr 09/14 18:54 Order name: Lipase; Complete Time: 21:03 kdr 09/14 18:54 Order name: Procalcitonin; Complete Time: 21:03 kdr 09/14 18:54 Order name: Protime (+inr); Complete Time: 19:57 kdr 09/14 18:54 Order name: Ptt, Activated; Complete Time: 19:57 kdr 09/14 18:54 Order name: Troponin (emerg Dept Use Only); Complete Time: 21:03 kdr 09/14 18:54 Order name: Urine Microscopic Only; Complete Time: 21:03 kdr 09/14 19:23 Order name: Glucose, Ancillary Testing; Complete Time: 19:57 EDMS 09/14 18:54 Order name: Chest Single View XRAY; Complete Time: 20:21 kdr 09/14 18:55 Order name: CT Abd/Pelvis - IV Contrast Only; Complete Time: 21:03 kdr 09/14 19:58 Order name: Urine Dipstick--Ancillary (enter results); Complete Time: 21:03 ar5 09/14 20:42 Order name: Urine Culture EDMS 09/14 21:35 Order name: Basic Metabolic Panel EDMS 09/14 21:35 Order name: Basic Metabolic Panel EDMS 09/14 21:35 Order name: CBC with Automated Diff EDMS 09/14 21:35 Order name: CBC with Automated Diff EDMS 09/14 18:54 Order name: Accucheck; Complete Time: 19:17 kdr 09/14 18:54 Order name: Cardiac monitoring; Complete Time: 19:08 kdr 09/14 18:54 Order name: EKG - Nurse/Tech; Complete Time: 19:08 kdr 09/14 18:54 Order name: IV Saline Lock - Large Bore; Complete Time: 19:08 kdr 09/14 18:54 Order name: Labs collected and sent; Complete Time: 19:17 kdr 09/14 18:54 Order name: O2 Per Protocol; Complete Time: 19:08 kdr 09/14 18:54 Order name: O2 Sat Monitoring; Complete Time: 19:08 kdr 09/14 18:54 Order name: Urine Dipstick-Ancillary (obtain specimen); Complete Time: 19:48 kdr 09/14 21:35 Order name: Clear Liquid EDMS Administered Medications: 19:16 Drug: Phenergan 12.5 mg Route: IVP; Site: Port-a-cath; ph 19:36 Follow up: Response: No adverse reaction ak1 19:17 Drug: fentaNYL (PF) 100 mcg Route: IVP; Site: Port-a-cath; ph 19:36 Follow up: Response: No adverse reaction ak1 20:31 Drug: NS 0.9% 1000 ml Route: IV; Rate: 1 bolus; Site: Port-a-cath; ak1 22:06 Follow up: IV Status: Completed infusion; IV Intake: 1000ml ak1 20:31 Drug: Dilaudid 0.5 mg Route: IVP; Site: Port-a-cath; ak1 21:32 Follow up: Response: No adverse reaction ak1 20:31 Drug: Phenergan 25 mg Route: IVP; Site: Port-a-cath; ak1 21:32 Follow up: Response: No adverse reaction ak1 21:32 Drug: Solu-CORTEF 100 mg Route: IVP; Site: Port-a-cath; ak1 21:34 Follow up: Response: No adverse reaction ak1 21:42 Drug: Calcium Gluconate 1 grams Route: IVPB; Infused Over: 60 mins; Site: Port-a-cath; ak1 22:24 Follow up: IV Status: Infusion continued upon admission ak1 22:43 Follow up: IV Status: Completed infusion ak1 21:43 Not Given (Other Intervention Used): Potassium Effervescent Tablet 50 mEq PO once; ak1 dissolve in 4 ounces of water or juice 21:43 Drug: Potassium Chloride 40 mEq Route: PO; ak1 21:44 Follow up: Response: No adverse reaction ak1 22:22 Drug: Calcium Gluconate 1 grams Route: IVPB; Infused Over: 60 mins; Site: Port-a-cath; ak1 22:24 Follow up: IV Status: Infusion continued upon admission ak1 Disposition: 09/14/19 21:24 Hospitalization ordered by Yuliana Tubbs for Observation. Preliminary diagnosis are Dehydration, Vomiting. - Bed requested for Telemetry/MedSurg (observation). - Status is Observation. ak1 - Condition is Stable. - Problem is new. - Symptoms have improved. UTI on Admission? No Signatures: Dispatcher [employer] EDMS Ezekiel Keating MD MD kdr Williams, Irene, RN RN Judy Chamorro RN RN tl1 Kylie Paul RN RN ak1 Sintia Kelley RN RN Lane Cummings MD MD Corrections: (The following items were deleted from the chart) 21:39 21:24 Hospitalization Ordered by Yuliana Tubbs MD for Observation. Preliminary diagnosis is tl1 Dehydration; Vomiting. Bed requested for Telemetry/MedSurg (observation). Status is Observation. Condition is Stable. Problem is new. Symptoms have improved. UTI on Admission? No. gs 23:03 21:39 09/14/2019 21:24 Hospitalization Ordered by A Suly PRICE for Observation. ak1 Preliminary diagnosis is Dehydration; Vomiting. Bed requested for Telemetry/MedSurg (observation). Status is Observation. Condition is Stable. Problem is new. Symptoms have improved. UTI on Admission? No. tl1
--- NOTE | 2019-09-14 21:25 | ER ---
Nurse's Notes [facility] Name: Husam Vela Age: 58 yrs Sex: Male : 1960 Arrival Date: 09/14/2019 Time: 18:27 Bed 5 Private MD: Yuliana Tubbs C Diagnosis: Dehydration;Vomiting Presentation: 09/14 18:47 Presenting complaint: Patient states: abd pain, n/v X 3 days, decreased urine output, iw dark colored urine. Transition of care: patient was not received from another setting of care. Onset of symptoms was September 11, 2019. Risk Assessment: Do you want to hurt yourself or someone else? Patient reports no desire to harm self or others. Initial Sepsis Screen: Does the patient have a suspected source of infection?. Initial Sepsis Screen: Does the patient meet any 2 criteria? HR > 90 bpm. Care prior to arrival: None. 18:47 Method Of Arrival: Wheelchair iw 18:47 Acuity: CECI 2 iw Historical: - Allergies: 18:54 Demerol; iw 18:54 Remicade; iw 18:54 Latex, Natural Rubber; iw - Home Meds: 18:54 acetazolamide 250 mg Oral tab 1 tab once daily [Active]; anakinra subcutaneous once iw daily [Active]; chlorthalidone 25 mg Oral tab 1 tab once daily [Active]; Cymbalta 60 mg Oral cpDR 2 caps once daily [Active]; folic acid 1 mg Oral tab 1 tab once daily [Active]; methotrexate (PF) subcutaneous [Active]; [place] 7.5-325 mg Oral tab 1 tab every 6 hours [Active]; prednisone 5 mg Oral tab 3 tabs once daily [Active]; Protonix 40 mg Oral chew 1 tab once daily [Active]; sotalol 120 mg Oral tab 1 tab 2 times per day [Active]; spironolactone 50 mg Oral tab 1 tab 2 times per day [Active]; Xarelto 20 mg Oral tab 1 tab once daily [Active]; - PMHx: 18:54 Atrial Fib; Hypertension; 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 - Social history:: Smoking status: Patient/guardian denies using tobacco. - Ebola Screening: : Patient negative for fever greater than or equal to 101.5 degrees Fahrenheit, and additional compatible Ebola Virus Disease symptoms Patient denies exposure to infectious person Patient denies travel to an Ebola-affected area in the 21 days before illness onset No symptoms or risks identified at this time. Screenin:40 Abuse screen: Denies threats or abuse. Denies injuries from another. Nutritional ak1 screening: No deficits noted. Tuberculosis screening: No symptoms or risk factors identified. Fall Risk None identified. Assessment: 20:38 General: Appears uncomfortable, well groomed, Behavior is calm, cooperative. Pain: ak1 Complains of pain in abdomen. Neuro: Oriented to person, place, time, situation, Appropriate for age Moves all extremities. Speech is normal. Cardiovascular: No deficits noted. Respiratory: Airway is patent Respiratory effort is even, unlabored. GI: Abdomen is round non-distended, Bowel sounds present X 4 quads. Abd is non tender X 4 quads Reports nausea, vomiting. : No signs and/or symptoms were reported regarding the genitourinary system. EENT: No signs and/or symptoms were reported regarding the EENT system. Derm: No signs and/or symptoms reported regarding the dermatologic system. Musculoskeletal: No signs and/or symptoms reported regarding the musculoskeletal system. 21:44 Reassessment: Patient appears in no apparent distress at this time. No changes from ak1 previously documented assessment. Patient and/or family updated on plan of care and expected duration. Pain level reassessed. Patient is alert, oriented x 3, equal unlabored respirations, skin warm/dry/pink. 21:44 Reassessment: no vomiting noted while in ER. ak1 22:20 Reassessment: report given to Bear MAYO jd3 Vital Signs: 18:54 BP 103 / 89; Pulse 101; Resp 20; Temp 97.0(TE); Pulse Ox 96% on R/A; Weight 170.1 kg; iw Height 6 ft. 2 in. (187.96 cm); Pain 8/10; 19:52 BP 109 / 91; Pulse 101; Resp 18; Pulse Ox 92% on R/A; ak1 20:30 BP 115 / 90; Pulse 99; Resp 17; Temp 98.1; Pulse Ox 96% on R/A; ak1 21:45 BP 108 / 77; Pulse 89; Resp 14; Temp 98.2; Pulse Ox 98% on R/A; ak1 18:54 Body Mass Index 48.15 (170.10 kg, 187.96 cm) ED Course: 18:27 Patient arrived in ED. as 18:27 Yuliana Tubbs MD is Private Physician. as 18:47 Nayana Resendiz RN is Primary Nurse. iw 18:52 Triage completed. iw 18:52 Ezekiel Keating MD is Attending Physician. kdr 18:54 Antipyretic given from triage as ordered by the ER provider. iw 18:55 Initial lab(s) drawn, by me, sent to lab. First set of blood cultures drawn by me. fc Accessed Port-a-Cath. using accessed w/ # 20 Harris needle, Clean \T\ dry. Dressing intact. Good blood return. Flushes easily. 19:15 Attending Physician role handed off by Ezekiel Keating MD gs 19:15 aLne Cummings MD is Attending Physician. gs 19:25 Second set of blood cultures drawn by me. Inserted saline lock: 20 gauge in left fc antecubital area, using aseptic technique. Blood collected. 19:48 Chest Single View XRAY In Process Unspecified. EDMS 19:53 Radiology exam delayed due to lab results not completed at this time. (BUN/Creatinine). nj 20:19 Radiology exam delayed due to lab results not completed at this time. (BUN/Creatinine). sj 20:40 Patient has correct armband on for positive identification. Placed in gown. Bed in low ak1 position. Call light in reach. Side rails up X 1. ase master mechanic on. Pulse ox on. NIBP on. Door closed. Warm blanket given. 20:47 CT Abd/Pelvis - IV Contrast Only In Process Unspecified. EDMS 21:23 Yuliana Tubbs MD is Hospitalizing Provider. gs 21:45 No provider procedures requiring assistance completed. Patient admitted, IV remains in ak1 place. Administered Medications: 19:16 Drug: Phenergan 12.5 mg Route: IVP; Site: Port-a-cath; ph 19:36 Follow up: Response: No adverse reaction ak1 19:17 Drug: fentaNYL (PF) 100 mcg Route: IVP; Site: Port-a-cath; ph 19:36 Follow up: Response: No adverse reaction ak1 20:31 Drug: NS 0.9% 1000 ml Route: IV; Rate: 1 bolus; Site: Port-a-cath; ak1 22:06 Follow up: IV Status: Completed infusion; IV Intake: 1000ml ak1 20:31 Drug: Dilaudid 0.5 mg Route: IVP; Site: Port-a-cath; ak1 21:32 Follow up: Response: No adverse reaction ak1 20:31 Drug: Phenergan 25 mg Route: IVP; Site: Port-a-cath; ak1 21:32 Follow up: Response: No adverse reaction ak1 21:32 Drug: Solu-CORTEF 100 mg Route: IVP; Site: Port-a-cath; ak1 21:34 Follow up: Response: No adverse reaction ak1 21:42 Drug: Calcium Gluconate 1 grams Route: IVPB; Infused Over: 60 mins; Site: Port-a-cath; ak1 22:24 Follow up: IV Status: Infusion continued upon admission ak1 22:43 Follow up: IV Status: Completed infusion ak1 21:43 Not Given (Other Intervention Used): Potassium Effervescent Tablet 50 mEq PO once; ak1 dissolve in 4 ounces of water or juice 21:43 Drug: Potassium Chloride 40 mEq Route: PO; ak1 21:44 Follow up: Response: No adverse reaction ak1 22:22 Drug: Calcium Gluconate 1 grams Route: IVPB; Infused Over: 60 mins; Site: Port-a-cath; ak1 22:24 Follow up: IV Status: Infusion continued upon admission ak1 Intake: 22:06 IV: 1000ml; Total: 1000ml. ak1 Outcome: 21:24 Decision to Hospitalize by Provider. gs 21:45 Admitted to Med/surg accompanied by tech, via stretcher, room 209, with chart. ak1 21:45 Condition: stable 21:45 Instructed on the need for admit. 23:03 Patient left the ED. ak1 Signatures: Dispatcher [employer] EDMS Ezekiel Keating MD MD kdr Jones, Susan sj Chretien, Felicia, RN RN fc Martinez, Amelia as Williams, Irene, RN RN iw Krenek Kylie, RN RN ak1 Sintia Kelley, RN RN Abdifatah, Lane Barone MD MD gs Davies, Jonathon, RN RN jd3
[2019-09-14] MEDS ORDERED: CALCIUM GLUCONATE 1 GM IVPB 1 GM/50 ML BAG IV ONE ×2 (21:32→22:20)
[2019-09-14] MEDS ORDERED: ONDANSETRON 4 MG/2 ML VIAL IV PRN ×2 (21:32→23:05)
[2019-09-14] MEDS ORDERED: POTASSIUM CL SA 10 MEQ TAB PO ONE (21:39)
[2019-09-14] MEDS: NA CHLORIDE 0.9% 1,000 ML IV SCH (23:14)
[2019-09-14] MEDS: FENTANYL CITR 100 MCG/2 ML IV PRN (23:40)
[2019-09-14] MEDS: PROMETHAZINE 25 MG/ML VIAL IV PRN (23:44)
[2019-09-15] MEDS: PROMETHAZINE 25 MG/ML VIAL IV PRN ×6 (03:08→21:39)
[2019-09-15] MEDS: FENTANYL CITR 100 MCG/2 ML IV PRN ×2 (03:08→07:51)
[2019-09-15 05:06] LABS: Absolute Lymphocytes (CBC) 1.1 K/uL (0.7-4.9); Basophils % 0.1 % (0-1.3); Hematocrit 32.8 % (39.6-49.0); Lymphocytes % 12.2 % (15.3-44.8); MPV 8.4 fL (7.6-11.3); RBC Red Blood Cell Count 3.39 M/uL (4.33-5.43)
[2019-09-15 05:26] LABS: BUN Blood Urea Nitrogen 14 mg/dL (7-18); Bicarbonate 29 mmol/L (21-32); Glucose Level 233 mg/dL (74-106); Sodium Level 139 mmol/L (136-145)
[2019-09-15 05:28] LABS: Potassium 2.8 mmol/L (3.5-5.1)
[2019-09-15] MEDS ORDERED: CALCIUM GLUC 10% INJ 4.65 MEQ in NA CHLORIDE 0.9% 100 ML IV ONE ×3 (06:00→12:00)
[2019-09-15] MEDS: KCL 20 MEQ/100 mL IVPB 20 MEQ/100 ML BAG IV SCH ×5 (06:15→22:29)
[2019-09-15] MEDS: NA CHLORIDE 0.9% 1,000 ML IV SCH ×2 (06:15→12:57)
--- NOTE | 2019-09-15 07:23 | EKG ---
Test Date: 2019-09-14 Test Time: 18:58:49 Playground Supervisor: MARIELENA MEASUREMENT RESULTS: Intervals: Rate: 106 ID: [id number] QRSD: 72 QT: 374 QTc: 496 [place]: P: 25 ID: [id number] QRS: 109 T: 99 INTERPRETIVE STATEMENTS: Sinus tachycardia Rightward axis Low voltage QRS Septal infarct, age undetermined Abnormal ECG Compared to ECG 03/11/2019 19:40:37 Sinus rhythm no longer present Myocardial infarct finding still present Electronically Signed On 09-15-19 07:21:58 CDT by Gaston Phillips
[2019-09-15] MEDS ORDERED: METFORMIN HCL 500 MG TAB PO SCH (08:00)
[2019-09-15] MEDS ORDERED: INFLUENZA VACCINE (for 3y+) 0.5 ML DOSE IMVAC ONE (08:00)
[2019-09-15 08:05] LABS: Blood Morphology Comment NOT SEEN (NOT SEEN); Platelet Estimate ADEQ; Urine White Blood Cell Casts OK
[2019-09-15] MEDS ORDERED: PANTOPRAZOLE 40MG TABLET PO SCH (09:00)
[2019-09-15] MEDS ORDERED: predniSONE 5 MG TAB PO SCH (09:00)
[2019-09-15] MEDS: TAMSULOSIN 0.4 MG SR CAP PO SCH (09:00)
[2019-09-15] MEDS ORDERED: SITAGLIPTIN PHOS 100 MG TAB PO SCH (09:00)
[2019-09-15] MEDS: DULOXETINE 20 MG CAP PO SCH (09:00)
[2019-09-15] MEDS: CALCIUM CARB 500MG/VIT D 200 IU TAB PO SCH ×2 (09:00→20:36)
[2019-09-15] MEDS: SPIRONOLACTONE 25 MG TABLET PO SCH ×2 (09:00→20:34)
[2019-09-15] MEDS ORDERED: SODIUM CHLORIDE 0.9% 10ML INJ IV PRN (09:11)
[2019-09-15] MEDS ORDERED: D50W 25 GM/50 ML SYRINGE IV PRN (09:13)
[2019-09-15] MEDS ORDERED: GLUCAGON 1 MG/VIAL IM PRN (09:13)
[2019-09-15] MEDS: RIVAROXABAN 20 MG TABLET PO SCH (09:15)
[2019-09-15] MEDS: FOLIC ACID 1 MG TABLET PO SCH (09:15)
[2019-09-15] MEDS: acetaZOLAMIDE 250 MG TAB PO SCH (09:16)
[2019-09-15] MEDS: SOTALOL HCL 80 MG TAB PO SCH ×2 (09:18→20:34)
[2019-09-15] MEDS: HYDROCODONE/APAP 10/325 TAB PO PRN (09:39)
[2019-09-15] MEDS: HYDROMORPHONE HCL 1 MG/ML INJ IV PRN ×4 (10:48→21:39)
[2019-09-15] MEDS: INSULIN -REGULAR HUMAN 50 UNIT/0.5 ML ML SQ SCH ×3 (11:30→20:35)
[2019-09-15] MEDS: PANTOPRAZOLE 40 MG INJ IVP SCH (11:44)
[2019-09-15] MEDS: HYDROCORTISONE SUC 100 MG INJ IV SCH ×3 (11:45→16:54)
[2019-09-15] MEDS: WATER FOR INJ,STERILE 10 ML IV SCH ×2 (11:45→16:55)
[2019-09-15] MEDS: PIPER/TAZO/NS 3.375gm 3.375 GM/100 ML BAG IVPB SCH ×2 (11:53→16:54)
[2019-09-15] MEDS: FLUCONAZOLE 100mg IVPB 100 MG/50 ML BAG IV SCH (14:38)
--- NOTE | 2019-09-15 16:32 | CON ---
Date of Consultation: 09/15/2019 Reason For Consultation: Abdominal pain, nausea, and vomiting. History Of Present Illness: Patient is a 58-year-old gentleman with multiple medical problems includ ing morbid obesity, chronic hernia, multiple abdominal surgeries, who comes in with a couple-day hist ory of left-sided abdominal pain associated with nausea and vomiting. He did have a bowel movement y esterday and he is passing a little bit of gas, but no blood in his stool. No dysuria or hematuria. No sore throat, runny nose, cough, headaches, or dizziness. No chest pain. Review of Systems: Otherwise unremarkable. He has had similar episodes in the past, which have resolved with conservati ve treatment. Past Medical History: Significant for morbid obesity, chronic renal disease, chronic UTI, hernia, di abetes, atrial fibrillation, hypertension, history of testicular cancer. Past Surgical History: Multiple abdominal surgeries, knee surgery, hip replacement, gastric bypass, cholecystectomy, appendectomy, cardiac ablation. Allergies: DEMEROL, REMICADE, LATEX. Social History: Patient does not smoke or drink. Family History: Noncontributory. Physical Examination: Vital Signs: Stable. He is currently afebrile. General: He is awake, alert. Head and Neck: No masses. Chest: Clear. Heart: S1 and S2. Abdomen: Soft. Tender in the left lower quadrant. A large hernia appreciated, not strangulated, no t incarcerated. There is no peritonitis. Extremities: Adequately perfused. Nontender. Neuro: Nonfocal. Laboratory Data: White count is 9000 with a slight left shift. INR is 1.27. Chemistry reviewed. H e has hypokalemia and hypocalcemia, which are being replaced. Parathyroid level is high. His procal citonin and lactic acid are within normal limits. A CT of the abdomen and pelvis reviewed, shows col on that appeared filled with stool. Large pannus present, portion of which is not included on the ex amination. Bowel obstruction is not present. No pneumoperitoneum. No ascites. No free air. No ab scess. Significant stool is retained in the colon. No evidence of significant lymphadenopathy. Assessment: A 58-year-old gentleman with multiple medical problems with constipation associated with nausea, vomiting, and abdominal pain. Recommendations: We will try tap water enemas, and if that does not work, magnesium citrate, and onc e I think we cleaned out his colon, he will need to be on a bowel regimen. We will start his diet as soon as we have his bowel functioning again. I think with the multiple surgeries and the hernia, he had slow motility and that will need to be addressed by the GI Department. No need for any acute phelps rgical intervention. We will follow this patient while in the hospital. Discussed care with Dr. Tami phillips and patient. /MODL Voice ID: [id number] Report ID: [id number]
[2019-09-15] MEDS: NACHLORIDE 0.45% 1,000 ML with POTASSIUM CL 40 MEQ IV SCH ×2 (16:54)
[2019-09-15 17:33] LABS: BUN Blood Urea Nitrogen 10 mg/dL (7-18); Bicarbonate 31 mmol/L (21-32); Glucose Level 192 mg/dL (74-106); Potassium 3.2 mmol/L (3.5-5.1); Sodium Level 138 mmol/L (136-145)
[2019-09-15] MEDS ORDERED: CALCIUM GLUC 10% INJ 9.3 MEQ in NA CHLORIDE 0.9% 100 ML IV ONE (19:00)
--- NOTE | 2019-09-15 21:03 | CON ---
Date of Consultation: 09/15/2019 Reason For Consult: Electrolyte abnormalities. History Of Present Illness: The patient is a 58-year-old very pleasant gentleman, who presented to [facility] complaining of abdominal discomfort, which has been going on for th e past several days. He had a CT scan done of his abdomen, which showed retained stool with complex large pannus. He has a very complex past medical history with multiple abdominal surgeries and obesi ty. He also has history of urethral stricture and hydronephrosis as a result of that. He does self- catheterized about twice a day. He was admitted urgently to the floor, but however, he had AFib whic h was nonsustained. He has had history of ablation in the past. He was admitted to the ICU for furt her closer monitoring. He was noted to have severe hypokalemia and hypocalcemia. He has received se veral doses of potassium chloride up to 60 mEq IV and also calcium gluconate up to 3 g at this time, and Nephrology is being consulted. Patient states that his nausea is better after he has had a bowel movement with the help of enema. He also is self-catheterizing while he is in the hospital. Past Medical History: Significant for history of ureteral stricture, recurrent urinary tract infecti on, atrial fibrillation, sleep apnea, hypertension, Crohn disease, chronic steroid therapy, rheumatoi d arthritis with chronic pain, ventral hernia, morbid obesity, and recurrent UTIs. Surgical History: Significant for history of lysis of adhesions, segmental resection of small bowel due to small bowel obstruction without perforation, abdominal wall abscess surgery, knee surgery, and Port-A-Cath placement. Social History: He lives at home. No history of smoking, alcohol, or drug use reported. Family History: Noncontributory. Physical Examination: Vital Signs: At this time are showing temperature of 97.8, pulse rate of 88, respiratory rate of 16, and blood pressure 116/78. General: He is a morbidly obese male, in no acute distress. HEENT: Atraumatic head. Lungs: Auscultation of the lungs revealed bilaterally equal air entry with diminished breath sounds at bases. Heart: Auscultation of the heart revealed regular rate and rhythm. No tachycardia was noted. Abdomen: Obese, nontender with no rebound or guarding. Extremities: Showed no evidence of edema. Laboratory Data: At this time showing sodium of 139, potassium of 2.8, chloride of 103, bicarb of 29 , BUN of 14, and creatinine of 0.83. Calcium is low at 5.6. Intact PTH was elevated, which is appro priate and vitamin D level was low at 16.9. CBC showing stable hemoglobin, hematocrit, and platelet count. Current Medications: Have been reviewed in detail. Impression: 1.Multiple electrolyte abnormalities including hypocalcemia and hypokalemia. Patient has gotten rep lacements for that. I will change IV fluids to half-normal saline, but with 40 mEq of potassium chlo ride to improve his hypokalemia and also we will start him on calcitriol for his hypocalcemia. We wi ll request another blood draw at 5 o'clock. 2.He is on high-dose steroids at this time with hydrocortisone 50 mg every 6 hours. Unsure why that is. We will continue to monitor his blood sugars closely. 3.Severe persistent nausea and vomiting. Patient is currently n.p.o. with a clear liquid diet. Con tinue to advance slowly as tolerated and improve his bowel movements and follow up closely. 4.Chronic ureteral stricture, needing twice daily self-catheterizations. 5.Hypertension. Remains on spironolactone, which should also help with his hypokalemia. Plan: Overall, patient is hemodynamically stable. His atrial fibrillation is also rate controlled a t this time. His electrolytes have been replaced. We will further monitor his electrolytes closely with twice daily labs and also start him on potassium replacement as well as start him on calcitriol and monitor his labs closely. Plan was discussed with the patient and nursing at the bedside. All questions were answered. VALENTINA/KENDALL Voice ID: [id number] Report ID: [id number]
--- NOTE | 2019-09-15 22:53 | HP ---
Date of Admission: 09/15/2019 Chief Complaint: Abdominal pain, nausea, vomiting. History Of Present Illness: This is a 58-year-old male patient with multiple comorbidities, who got sick about 2 to 3 weeks ago with abdominal pain, nausea, vomiting, could not keep anything down and h e did not seek any medical attention at that time, but he had some antibiotics, Cipro and Bactrim at home, and he took those antibiotics and within a few days he felt better. He did not have any proble ms until last 3 to 4 days. He started to have similar complaints of abdominal pain, nausea, vomiting . No diarrhea. No fever. He is not able to keep any food or liquids down and with ongoi ng symptoms, he was brought into ER yesterday after he was evaluated, he was admitted to the hospital . When he came into emergency room yesterday, his calcium level was extremely low 5.4, and patient n ever had this kind of low calcium level before. He has not taken his Kineret injection in the last a lmost a month, and otherwise, there is no change in his medication. He takes diuretic medication, ch lorthalidone, which he has been on it for few years and the patient never had hypocalcemia problem li ke this before. Allergies: TO DEMEROL, REMICADE, AND LATEX. Medications: List reviewed. Review of Systems: GI: As mentioned above. All other systems reviewed and negative. Social History: Negative for smoking, alcohol use. Family History: Not pertinent. Past Medical History: Significant for paroxysmal atrial fibrillation, on chronic anticoagulation the rapy; sleep apnea, unable to wear CPAP machine because of significant claustrophobia problem; hyperte nsion; Crohn disease; chronic steroid therapy; chronic anticoagulation therapy; rheumatoid arthritis; ventral hernia; morbid obesity; urethral stricture requiring daily catheterization of bladder usuall y 2 times a day, recurrent urinary tract infections. Past Surgical History: Surgery for lysis of adhesions, Port-A-Cath placement, lysis of adhesions wit h segmental resection of small bowel due to small bowel obstruction without perforation, abdominal wa ll abscess and surgery for that surgery, surgery for ventral abdominal hernia, knee surgery. Physical Examination: Vital Signs: Height 6 feet 2 inches, weight 373 pounds, temperature , pulse , re spiratory rate , blood pressure . General: Awake, alert, oriented, not in distress. HEENT: Head atraumatic, normocephalic. Conjunctivae nonerythematous. Sclerae white. Mouth, no thr ush or edema noted. Ears/Nose, no mass, lesion, discharge noted. Neck: Supple. No JVD, lymph nodes, bruit, thyromegaly noted. Lungs: Bilateral good equal air entry. Clear to auscultation. No rhonchi. No rales. Heart: Normal heart sounds, no murmur or gallop. Abdomen: Patient's abdomen is pendulous. Anterior abdominal wall has multiple surgical scar from pr ior surgeries, but also has significantly large ventral abdominal wall hernia unchanged from before a nd patient has tenderness over the left upper quadrant of abdomen and epigastric area. There is no r ebound tenderness. Bowel sounds normoactive. Extremities: No leg edema. No calf tenderness. Skin: No rash, ulcer, cellulitis. Lymphatics: No lymph node enlargement in neck, supraclavicular, infraclavicular region. Neuro: No focal neurological deficit. Chest: Unremarkable. External Genitalia: Deferred. Rectal: Deferred. Laboratory Data: Yesterday's white count 8.7, hemoglobin 12.1, platelets 280. This morning, white c ount 9, hemoglobin 11, platelets 252. INR 1.27. Yesterday sodium 138, potassium 3.2, chloride 100, bicarb 28, BUN 16, creatinine 0.87, glucose 158, calcium 5.4. Liver function tests unremarkable. Tr oponin less than 0.02. Chief procalcitonin less than 0.06. Lactic acid level 1.5. This morning sod ium 139, potassium 2.8, chloride 103, bicarb 29, BUN 14, creatinine 0.83, glucose 233, calcium 5.6. CAT scan of the abdomen shows evidence of moderate amount of retained stool. No evidence of bowel ob struction. Chest x-ray, no acute cardiopulmonary changes. EKG; sinus rhythm with right axis deviati on. Urinalysis unremarkable. Impression: 1.Rule out bowel obstruction in response to patient's nausea with vomiting. 2.Gastroesophageal reflux disease. 3.Paroxysmal atrial fibrillation. 4.Hypocalcemia. 5.Hypokalemia. 6.Crohn disease. 7.Sleep apnea. 8.Rheumatoid arthritis. 9.Ventral abdominal wall hernia. 10.Urethral stricture. 11.Chronic steroid therapy. 12.Chronic anticoagulation therapy. 13.Obstructive sleep apnea. 14.Hypertension. Plan: Admit patient to hospital for further evaluation and management of this problem. Patient is a ppropriate for inpatient and is expected to spend 2 midnights in the hospital. patient pathak s had a lot of nausea, vomiting, and a lot of abdominal pain requiring IV pain medication management. Oral pain medication either it is not helping or he is not able to keep it down because of nausea, vomiting. In the emergency room, he got Dilaudid and fentanyl. I have ordered fentanyl for him, but it is not helping him, so I have changed the fentanyl from fentanyl to Dilaudid. We will continue Z ofran and Phenergan for nausea for symptomatic control. There are no signs of any peritonitis. Gene ral surgeon was consulted, Dr. Celestin, details were discussed with him. Patient had an episode of 16 seconds of atrial fibrillation with rapid ventricular rate while he was on the floor. Hemodynamicall y, he was stable with multiple other health problems. I have decided to move him to ICU for closer o bservation as I am afraid that he may require long intensive care than what medical floor can provide . We will replace calcium supplement per order and so far he has received 4 doses of IV calcium gluc dalia. Fifth dose will be given around noon time today and subsequently regular monitoring of blood work and replacement will be provided. Replace potassium per protocol. IV antibiotics, Zosyn will b e started. IV Protonix was started and IV steroid will be given as well. Details and plan of treatm ent discussed with the patient's . I will be out of town starting today and in my absence hospitalist team will look after this patient and I have discussed isaac corral with hospitalist . JORDAN/MODL Voice ID: [id number]
[2019-09-16] MEDS: HYDROCORTISONE SUC 100 MG INJ IV SCH ×3 (00:01→16:39)
[2019-09-16] MEDS: WATER FOR INJ,STERILE 10 ML IV SCH ×2 (00:01→05:39)
[2019-09-16] MEDS: PIPER/TAZO/NS 3.375gm 3.375 GM/100 ML BAG IVPB SCH ×3 (00:01→16:40)
[2019-09-16] MEDS: HYDROCODONE/APAP 10/325 TAB PO PRN (00:02)
[2019-09-16] MEDS: HYDROMORPHONE HCL 1 MG/ML INJ IV PRN ×6 (01:14→20:45)
--- NOTE | 2019-09-16 02:33 | CON ---
Date of Consultation: 09/15/2019 Reason For Consultation: Atrial fibrillation. History Of Present Illness: Mr. Vela is a 58-year-old white male. He is very well known to me f rom previous office visits and admissions. He is status post ablation for his atrial fibrillation an d he has been having abdominal pain intermittently for the last 3 weeks. There is a question whether this is related to constipation versus bowel obstruction that has not been diagnosed yet. He has no t been able to keep his medication Xarelto or sotalol, which he has taken at 120 b.i.d. W hen he was admitted to the hospital, potassium was 2.8 and his calcium was 5.6. Workup for his hypoc alcemia is pending. His potassium is being supplemented. He had 1 episode of atrial fibrillation fo r about 15 seconds and resolved to normal sinus rhythm spontaneously. Today is the first day that __ Betapace and his Xarelto. Patient was asymptomatic with his atrial fibrillation episode. H e was hemodynamically stable past medical history including diabetes, arthritis, benign pr ostatic hypertrophy, gastroesophageal reflux disease. He is chronically on prednisone and then metho trexate. He also takes metformin, Diamox, Flomax, Protonix, Januvia, Aldactone, Cymbalta in addition to his sotalol and Xarelto. The patient is able to eat without any nausea or vomiting, and abdomina l pain has improved. I agree with supplemented potassium, calcium. Check PTH. Check vitamin D mary l. From a cardiac standpoint, I would continue the sotalol 120 b.i.d. as well as Xarelto. If he goe s into rapid atrial fibrillation that is persistent, I would give him IV Lopressor 5 mg on an as need ed basis if his heart rate is over 110. I do not think we need to do any cardiac workup on him. His last ejection fraction was normal. JOVAN/KENDALL Voice ID: [id number] Report ID: [id number]
[2019-09-16] MEDS: PROMETHAZINE 25 MG/ML VIAL IV PRN ×5 (05:48→20:45)
[2019-09-16] MEDS: INSULIN -REGULAR HUMAN 50 UNIT/0.5 ML ML SQ SCH ×4 (07:30→23:04)
[2019-09-16 07:59] LABS: Absolute Lymphocytes (CBC) 1.2 K/uL (0.7-4.9); Basophils % 0.4 % (0-1.3); Hematocrit 32.2 % (39.6-49.0); Lymphocytes % 15.7 % (15.3-44.8); MPV 7.9 fL (7.6-11.3); RBC Red Blood Cell Count 3.29 M/uL (4.33-5.43)
[2019-09-16] MEDS: DIPHENHYDRAMINE 25 MG TAB/CAP PO PRN (08:11)
[2019-09-16 08:24] LABS: BUN Blood Urea Nitrogen 6 mg/dL (7-18); Bicarbonate 32 mmol/L (21-32); Glucose Level 155 mg/dL (74-106); Magnesium 1.3 mg/dL (1.8-2.4); Potassium 4.1 mmol/L (3.5-5.1); Sodium Level 139 mmol/L (136-145)
[2019-09-16] MEDS: CALCITROL 0.25 MCG CAP PO SCH (08:33)
[2019-09-16] MEDS: SOTALOL HCL 80 MG TAB PO SCH ×2 (08:33→19:54)
[2019-09-16] MEDS: RIVAROXABAN 20 MG TABLET PO SCH (08:33)
[2019-09-16] MEDS: PANTOPRAZOLE 40 MG INJ IVP SCH (08:35)
[2019-09-16] MEDS: FOLIC ACID 1 MG TABLET PO SCH (09:57)
[2019-09-16] MEDS: SPIRONOLACTONE 25 MG TABLET PO SCH ×2 (09:57→19:54)
[2019-09-16] MEDS: TAMSULOSIN 0.4 MG SR CAP PO SCH (09:57)
[2019-09-16] MEDS: acetaZOLAMIDE 250 MG TAB PO SCH (09:57)
[2019-09-16] MEDS: DULOXETINE 20 MG CAP PO SCH (09:57)
[2019-09-16] MEDS: NACHLORIDE 0.45% 1,000 ML with POTASSIUM CL 40 MEQ IV SCH ×4 (09:58→23:03)
[2019-09-16] MEDS ORDERED: Magnesium Sulfate 2gm IVPB 2 G/50 ML BAG IV ONE (10:00)
--- NOTE | 2019-09-16 10:05 | P.PN ---
Subjective Date of Service: 09/16/19 (Hospitalist) Chief Complaint: Nausea vomiting abdominal pain Patient's condition is stable he still complaining of abdominal pain nausea unable to keep any solids down he has a history of sleep apnea a BiPAP machine was returned patient is hypocalcemic according to the patient his levels were monitored this the 1st time that his calcium level has been so low Review of Systems General: Weakness Gastrointestinal: Nausea, Vomiting, Abdominal Pain Physical Examination - Vital Signs Temperature: 97.8 F Blood Pressure: 142/71 Pulse: 78 Respirations: 12 Pulse Ox (%): 98 - Physical Exam General: Alert, In no apparent distress, Oriented x3 HEENT: Atraumatic Neck: Supple Respiratory: Clear to auscultation bilaterally Cardiovascular: Normal S1 S2, Edema Assessment & Plan - Problems (Diagnosis) (1) Abdominal pain Current Visit: Yes Status: Acute Plan: Patient is 58 years of age admitted with abdominal pain nausea vomiting seen by general surgery he is also very hypocalcemic complaining of feeling weak the remain the levels are low PTH is high patient is hypomagnesemic normal renal function CBC normal cultures are negative patient does takes low-dose of prednisone at home for his rheumatoid arthritis unable to wean (2) Sleep apnea Current Visit: Yes Status: Acute Plan: Patient has sleep apnea start on BiPAP will need an outpatient sleep study to Re qualify for CPAP or BiPAP patient has lost some weight does take steroid chest x-rays clear CT of the abdomen revealed no significant findings seen by general surgery. There is no history of mi absorption of Crohn's disease patient has gastric bypass surgery vital signs oxygenation stable arterial blood gases ordered Qualifiers: Sleep apnea type: unspecified type Qualified Code(s): G47.30 - Sleep apnea , unspecified
[2019-09-16] MEDS: CALCIUM CARB 500MG/VIT D 200 IU TAB PO SCH ×2 (10:16→19:56)
[2019-09-16] MEDS: DULOXETINE 30 MG CAP PO SCH (11:37)
[2019-09-16 11:44] LABS: Arterial Blood Carboxyhemoglob 1.6 % (0-1.5); Blood Gas Oxyhemoglobin 95.3 % (94-97)
[2019-09-16] MEDS ORDERED: DRISDOL (VITAMIN D=ERGOCALCIFEROL) 50000 UNIT CAP PO SCH (14:00)
[2019-09-16] MEDS: FLUCONAZOLE 100mg IVPB 100 MG/50 ML BAG IV SCH (14:13)
--- NOTE | 2019-09-16 14:43 | P.PN ---
Subjective Date of Service: 09/16/19 Chief Complaint: Nausea vomiting abdominal pain patient seen/examined. labs seem to have improved. still with low magnesium/low calcium. vitamin d is low. pth is high. labs reviewed. meds reviewed vs stable. sbp 100 (its the usual bp for patient as per him). lungs cta [facility] regular abd soft/old surgical scars/hernias stable/no pain on exam ext with edema/some venous congestion changes a/p: ? ckd/patient with low calcium/magnesium/vitamin d/? uti: repeat ua. start ergocalceferol 50,000 units once a week (one dose today). magnesium has been replaced today. 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 Physical Examination - Vital Signs Temperature: 99.6 F Blood Pressure: 100/62 Pulse: 81 Respirations: 13 Pulse Ox (%): 100
--- NOTE | 2019-09-16 16:15 | PN ---
Date of Progress Note: 09/16/2019 Subjective: Patient is awake and alert. He had a bowel movement yesterday, but still feels discomfo rt in the left side of the abdomen. No nausea or vomiting. Objective: Vital Signs: Stable. Afebrile. 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 Assessment: Abdominal pain probably secondary to chronic constipation. Recommendations: Another tap water enema today and then I would recommend patient be placed on a bow el regimen. No need for any surgical intervention. /MODL Voice ID: [id number] Report ID: [id number]
[2019-09-16 18:09] LABS: Urine Appearance CLEAR; Urine Bilirubin NEGATIVE (NEG); Urine Blood NEGATIVE (NEG); Urine Color YELLOW; Urine Glucose NEGATIVE (NEG); Urine Protein NEGATIVE (NEG); Urine Specific Gravity 1.015 (1.005-1.030); Urine pH 6.5 (5.0-7.0)
[2019-09-16 18:13] LABS: Urine Microscopic Reflex ORDER UMIC
[2019-09-16 18:49] LABS: Urine Bacteria 20-50 /HPF (NONE SEEN); Urine Culture Reflex Order NOT NEEDED; Urine RBC <5 /HPF (NONE SEEN)
[2019-09-17] MEDS: PIPER/TAZO/NS 3.375gm 3.375 GM/100 ML BAG IVPB SCH ×3 (00:37→16:04)
[2019-09-17] MEDS: PROMETHAZINE 25 MG/ML VIAL IV PRN ×6 (00:37→20:19)
[2019-09-17] MEDS: HYDROCORTISONE SUC 100 MG INJ IV SCH ×3 (00:38→16:06)
[2019-09-17] MEDS: HYDROMORPHONE HCL 1 MG/ML INJ IV PRN ×6 (00:38→20:18)
[2019-09-17] MEDS ORDERED: MAGNESIUM SULFATE 1 gm IVPB 1 GM/100 ML BAG IV ONE (05:55)
[2019-09-17 06:06] LABS: Albumin 2.8 g/dL (3.4-5.0); Bilirubin Total 0.4 mg/dL (0.2-1.0); Magnesium 1.9 mg/dL (1.8-2.4); Potassium 3.9 mmol/L (3.5-5.1); Protein, Total 5.5 g/dL (6.4-8.2)
[2019-09-17 06:17] VITALS: BMI 48.1
[2019-09-17] MEDS: DULOXETINE 30 MG CAP PO SCH (07:47)
[2019-09-17] MEDS: SOTALOL HCL 80 MG TAB PO SCH ×2 (07:47→20:22)
[2019-09-17] MEDS: FOLIC ACID 1 MG TABLET PO SCH (07:47)
[2019-09-17] MEDS: CALCIUM CARB 500MG/VIT D 200 IU TAB PO SCH ×2 (07:47→20:23)
[2019-09-17] MEDS: RIVAROXABAN 20 MG TABLET PO SCH (07:47)
[2019-09-17] MEDS: SPIRONOLACTONE 25 MG TABLET PO SCH ×2 (07:48→20:22)
[2019-09-17] MEDS: acetaZOLAMIDE 250 MG TAB PO SCH (07:48)
[2019-09-17] MEDS: TAMSULOSIN 0.4 MG SR CAP PO SCH (07:48)
[2019-09-17] MEDS: CALCITROL 0.25 MCG CAP PO SCH (07:48)
[2019-09-17] MEDS: INSULIN -REGULAR HUMAN 50 UNIT/0.5 ML ML SQ SCH ×4 (07:49→20:23)
[2019-09-17] MEDS: PANTOPRAZOLE 40 MG INJ IVP SCH (07:49)
[2019-09-17] MEDS: DIPHENHYDRAMINE 25 MG TAB/CAP PO PRN (08:27)
[2019-09-17] MEDS: NACHLORIDE 0.45% 1,000 ML with POTASSIUM CL 40 MEQ IV SCH ×2 (08:48)
--- NOTE | 2019-09-17 11:31 | P.PN ---
Subjective Date of Service: 09/17/19 Chief Complaint: Nausea vomiting abdominal pain shortness of breath Patient is concerned about a shortness of breath also complaining of orthopnea in addition to chronic nausea vomiting Review of Systems General: Weakness Respiratory: Shortness of Breath Physical Examination - Vital Signs Temperature: 98.3 F Blood Pressure: 108/72 Pulse: 70 Respirations: 12 Pulse Ox (%): 100 - Physical Exam General: Alert, Oriented x3, Mild distress Neck: Supple Respiratory: Clear to auscultation bilaterally Cardiovascular: Normal S1 S2, Edema Gastrointestinal: Normal bowel sounds Assessment & Plan - Problems (Diagnosis) (1) Abdominal pain Current Visit: Yes Status: Acute Plan: No significant change he also has a chronic fungal rash in his groin area no relief with topical antibiotics patient was started on IV Diflucan (2) Sleep apnea Current Visit: Yes Status: Acute Plan: Patient not using BiPAP was prescribed yesterday he has hypoxic hypercapnic Qualifiers: Sleep apnea type: unspecified type Qualified Code(s): G47.30 - Sleep apnea , unspecified (3) Hypocalcemia Current Visit: Yes Status: Acute Plan: Patient is vitamin-D deficiency seen by Nephrology started on high doses of vitamin-D (4) Respiratory failure Current Visit: Yes Status: Acute Plan: Patient is hypoxic complaining of shortness of breath orthopnea elevated aa gradient patient is fully anti coagulated of order an echo chest x-ray is on diuretics oxygenation satisfactory on 2 L Qualifiers: Chronicity: acute on chronic
[2019-09-17] MEDS ORDERED: MAGNESIUM CITRATE 300 ML BOT PO ONE (12:00)
--- NOTE | 2019-09-17 13:02 | RAD REPORT ---
EXAM DESCRIPTION: RAD - Chest Single View - 09/17/2019 12:47 pm CLINICAL HISTORY: SOb Chest pain. COMPARISON: Chest Single View dated 09/14/2019; Chest Pa And Lat (2 Views) dated 06/19/2019; Chest Pa And Lat (2 Views) dated 06/17/2019; Chest Single View dated 03/11/2019 FINDINGS: Portable technique limits examination quality. The lungs are grossly clear. The heart is moderately enlarged in size. Right-sided port catheter tip in the SVC. IMPRESSION: No acute intrathoracic process suspected.
[2019-09-17] MEDS: FLUCONAZOLE 100mg IVPB 100 MG/50 ML BAG IV SCH (14:20)
[2019-09-17] MEDS ORDERED: MAGNESIUM CITRATE 300 ML BOT PO PRN (15:00)
--- NOTE | 2019-09-17 15:14 | PN ---
Date of Progress Note: 09/17/2019 Subjective: Patient is awake, alert, feels no different. Did have an enema yesterday, but no result , and he feels the stool is higher up. Patient's electrolytes are checked and being corrected. He h as low vitamin D, low magnesium, high parathyroid. Objective: VITAL SIGNS: Stable. He is afebrile. GI: He is passing gas. Abdomen is soft, slightly distended. Minimal tenderness on the left side. No peritonitis. Assessment: Chronic constipation, abdominal pain, nausea, vomiting, abnormal electrolytes. Recommendations: Correct electrolytes per the medical and renal service. We will try magnesium citr ate half a can to see if that helps clean him out. I think the constipation is a symptom of his unde rlying issues that are occurring with the abnormal electrolytes. We will follow this patient. Sean Joya will be back in [facility] and I will discuss the case in detail with him, so he can continue care. JORGITO/MODL Voice ID: [id number] Report ID: [id number]
[2019-09-17] MEDS: WATER FOR INJ,STERILE 10 ML IV SCH (16:06)
[2019-09-17] MEDS: LORazepam 2 MG/ML VIAL IV PRN (22:10)
[2019-09-17] MEDS ORDERED: NA CHLORIDE 0.9% 250 ML ONE (22:37)
--- NOTE | 2019-09-17 23:14 | PN ---
Date of Progress Note: 09/16/[address] Vela the day before for 1 episode of atrial fibrillation[address] Dr[address] Vela is status post ablation, cardioversion, and has been in sinus rhythm for quite some time. Has not been able to take his medication. Because of abdominal pain yesterday, he had 1 episode of atrial fibrillation t hat was 15 seconds. No hemodynamic compromise. Patient did not feel it. Yesterday, he received his Betapace 120 b.i.d. along with Xarelto. He has not had any further atrial fibrillation for the last 36 hours. I will sign off his case from that standpoint, but I will be available for questions if t he need arise. Workup for hypocalcemia and hypokalemia is underway. Dr. Maradiaga is following and Sharonda Tubbs will pickle solution maker his care back again on Wednesday. His PTH was elevated and his vitamin D level was low as well. JOVAN/KENDALL Voice ID: [id number] Report ID: [id number]
[2019-09-18] MEDS: HYDROCORTISONE SUC 100 MG INJ IV SCH ×3 (00:14→16:57)
[2019-09-18] MEDS: PIPER/TAZO/NS 3.375gm 3.375 GM/100 ML BAG IVPB SCH ×3 (00:14→16:56)
[2019-09-18] MEDS: PROMETHAZINE 25 MG/ML VIAL IV PRN ×5 (05:21→19:53)
[2019-09-18] MEDS: HYDROMORPHONE HCL 1 MG/ML INJ IV PRN ×5 (05:21→19:50)
[2019-09-18 06:25] LABS: Magnesium 2.1 mg/dL (1.8-2.4); Potassium 3.5 mmol/L (3.5-5.1)
[2019-09-18] MEDS: INSULIN -REGULAR HUMAN 50 UNIT/0.5 ML ML SQ SCH ×4 (07:30→20:33)
--- NOTE | 2019-09-18 08:17 | RAD REPORT ---
EXAM DESCRIPTION: RAD - Chest Single View - 09/18/2019 6:54 am CLINICAL HISTORY: SOb Chest pain. COMPARISON: Chest Single View dated 09/17/2019; Chest Single View dated 09/14/2019; Chest Pa And Lat (2 Views) dated 06/19/2019; Chest Pa And Lat (2 Views) dated 06/17/2019 FINDINGS: Portable technique limits examination quality. Mild bilateral pulmonary opacities are seen, without significant change since comparative study. The heart is mildly enlarged in size.Right-sided venous catheter has tip in the SVC. Small left pleural e ffusion.
[2019-09-18] MEDS ORDERED: POTASSIUM CL SA 10 MEQ TAB PO ONE (09:00)
[2019-09-18] MEDS: CALCIUM CARB 500MG/VIT D 200 IU TAB PO SCH ×2 (09:00→19:55)
[2019-09-18] MEDS: PANTOPRAZOLE 40 MG INJ IVP SCH (09:18)
[2019-09-18] MEDS: acetaZOLAMIDE 250 MG TAB PO SCH (09:19)
[2019-09-18] MEDS: TAMSULOSIN 0.4 MG SR CAP PO SCH ×2 (09:19→09:21)
[2019-09-18] MEDS: DULOXETINE 30 MG CAP PO SCH (09:19)
[2019-09-18] MEDS: SOTALOL HCL 80 MG TAB PO SCH ×2 (09:19→19:54)
[2019-09-18] MEDS: SPIRONOLACTONE 25 MG TABLET PO SCH ×2 (09:19→19:55)
[2019-09-18] MEDS: CALCITROL 0.25 MCG CAP PO SCH (09:20)
[2019-09-18] MEDS: POLYETHYL GLY 3350 17 GM/DOSE PO SCH ×2 (09:21→19:56)
[2019-09-18] MEDS: FOLIC ACID 1 MG TABLET PO SCH (09:21)
[2019-09-18] MEDS: RIVAROXABAN 20 MG TABLET PO SCH (09:21)
--- NOTE | 2019-09-18 10:34 | P.PN ---
Subjective Date of Service: 09/18/19 Chief Complaint: Nausea vomiting abdominal pain shortness of breath patient seen/examined. labs seem to have improved. magnesium/calcium improved. on vitamin d supplement. vague abdominal pain. ? constipation. Dr. Celestin following. currently looks comfortable. got dilautid earlier. he denies pain or nausea at this time. labs reviewed. meds reviewed vs stable. sbp 90-110 (its the usual bp for patient as per him). lungs cta [facility] regular abd soft/old surgical scars/hernias stable/no pain on exam ext with edema/some venous congestion changes/stable a/p: ? ckd/patient with low calcium/magnesium/vitamin d/? uti: on abx. on vitamin d replacement. volume status is ok. creatinine is ok. calcium /potassium improved. 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 he thinks its because to pain medication was given earlier; he feels that the pain is well controlled after the medication. Physical Examination - Vital Signs Temperature: 96.5 F Blood Pressure: 98/67 Pulse: 78 Respirations: 16 Pulse Ox (%): 92 - Studies Microbiology Data (last 24 hrs): 09/14/19 19:44 Clean Catch Urine [place] Count - Final >100,000 CFU/ML. 09/14/19 19:44 Clean Catch Urine - Final Enterobacter Aerogenes
[2019-09-18] MEDS: FLUCONAZOLE 100mg IVPB 100 MG/50 ML BAG IV SCH (15:31)
--- NOTE | 2019-09-18 15:50 | ECHO ---
HEIGHT: 6 ft 2 in WEIGHT: 375 lb 0 oz DATE OF STUDY: 09/18/[address]: Travon Maradiaga MD 2-DIMENSIONAL: YES M.MODE: YES DOPPLER: YES COLOR FLOW: YES TDS: YES PORTABLE: NO DEFINITY: NO BUBBLE STUDY: NO DIAGNOSIS: SHORTNESS OF BREATH CARDIAC HISTORY: CATHERIZATION: SURGERY: PROSTHETIC VALVE: PACEMAKER: MEASUREMENTS (cm) DIASTOLIC (NORMALS) SYSTOLIC (NORMALS) IVSd 1.2 (0.6-1.2) LA Diam 3.5 (1.9-4.0) LVEF 61% LVIDd 4.2 (3.5-5.7) LVIDs 2.9 (2.0-3.5) %FS 32% LVPWd 1.5 (0.6-1.2) Ao Diam 3.6 (2.0-3.7) 2 DIMENSIONAL ASSESSMENT: RIGHT ATRIUM: NORMAL LEFT ATRIUM: NORMAL RIGHT VENTRICLE: NORMAL LEFT VENTRICLE: LEFT VENTRICULAR HYPERTROPHY TRICUSPID VALVE: NORMAL MITRAL VALVE: NORMAL PULMONIC VALVE: NORMAL AORTIC VALVE: NORMAL PERICARDIAL EFFUSION: NONE AORTIC ROOT: NORMAL LEFT VENTRICULAR WALL MOTION: NORMAL. DOPPLER/COLOR FLOW: TRACE OF MITRAL REGURGITATION. COMMENTS: NORMAL LEFT VENTRICULAR EJECTION FRACTION. LEFT VENTRICULAR HYPERTROPHY. TRACE OF MITRAL REGURGITATION. TECHNOLOGIST: SAMANTHA DO/ KRISTI SMITH
[2019-09-19] MEDS: PIPER/TAZO/NS 3.375gm 3.375 GM/100 ML BAG IVPB SCH ×2 (00:14→09:00)
[2019-09-19] MEDS: HYDROMORPHONE HCL 1 MG/ML INJ IV PRN ×3 (00:16→13:07)
[2019-09-19] MEDS: PROMETHAZINE 25 MG/ML VIAL IV PRN ×3 (00:16→13:08)
[2019-09-19] MEDS: HYDROCORTISONE SUC 100 MG INJ IV SCH (00:16)
--- NOTE | 2019-09-19 01:06 | PN ---
Date of Progress Note: 09/18/2019 Subjective: The patient was seen this morning for followup. He was out of ICU in regular room. Whe n I saw him this morning, his was with him at bedside. He still continues to have abdominal geri n and nausea, but overall he feels better compared to how he was when I first saw him on Wednesday. He had a bowel movement on Wednesday and Wednesday, but no bowel movement yesterday. He received enema on and Wednesday that resulted in bowel movement and yesterday he did not receive any enema and did not have any bowel movement. Objective: Vital Signs: Reviewed. HEENT: Examination unremarkable. Lungs: Clear to auscultation. Heart: Sounds normal. Abdomen: Soft. Bowel sounds normal. No guarding, rigidity, distention. Presence of ventral hernia of anterior abdominal wall. Some left upper quadrant tenderness present, but it is significantly be tter today than what it was on Wednesday. Extremities: No leg edema. Laboratory Data: Sodium 139, potassium 3.5, chloride 101, bicarb 34, BUN 3, creatinine 0.91, glucose 144, calcium 8.1. Urine culture grew enterobacter and it is sensitive to Levaquin and Zosyn. His P TH level was 102 and vitamin D level was 16.92. Impression: 1.Urinary tract infection. 2.Urethral stricture. 3.Hypocalcemia, improved. 4.Vitamin D deficiency. 5.Hyperparathyroidism, secondary. 6.Paroxysmal atrial fibrillation. 7.Constipation. Plan: We will go ahead and start him on MiraLax 2 times a day. Continue current antibiotics. Consu lt Physical Therapy to help ambulate him. Repeat blood work tomorrow. Possible discharge to go home in next 1 or 2 days. Details were discussed with the patient and his . JORDAN/MODL Voice ID: [id number] Report ID: [id number]
[2019-09-19] MEDS: LORazepam 2 MG/ML VIAL IV PRN ×2 (02:41→14:13)
[2019-09-19 04:38] LABS: Absolute Lymphocytes (CBC) 0.9 K/uL (0.7-4.9); Basophils % 0.2 % (0-1.3); Hematocrit 27.2 % (39.6-49.0); Lymphocytes % 16.5 % (15.3-44.8); MPV 7.8 fL (7.6-11.3); RBC Red Blood Cell Count 2.74 M/uL (4.33-5.43)
[2019-09-19 04:52] LABS: Magnesium 1.8 mg/dL (1.8-2.4); Phosphorus 1.4 mg/dL (2.5-4.9); Potassium 4.1 mmol/L (3.5-5.1)
[2019-09-19] MEDS ORDERED: MAGNESIUM SULFATE 1 gm IVPB 1 GM/100 ML BAG IV ONE (06:00)
[2019-09-19] MEDS: CALCIUM CARB 500MG/VIT D 200 IU TAB PO SCH (09:00)
[2019-09-19] MEDS ORDERED: predniSONE 20 MG TAB PO SCH (09:00)
[2019-09-19] MEDS: INSULIN -REGULAR HUMAN 50 UNIT/0.5 ML ML SQ SCH ×2 (10:03→11:30)
[2019-09-19] MEDS: CALCITROL 0.25 MCG CAP PO SCH (10:13)
[2019-09-19] MEDS: SOTALOL HCL 80 MG TAB PO SCH (10:14)
[2019-09-19] MEDS: DULOXETINE 30 MG CAP PO SCH (10:14)
[2019-09-19] MEDS: SPIRONOLACTONE 25 MG TABLET PO SCH (10:15)
[2019-09-19] MEDS: RIVAROXABAN 20 MG TABLET PO SCH (10:17)
[2019-09-19] MEDS: PANTOPRAZOLE 40 MG INJ IVP SCH (10:17)
[2019-09-19] MEDS: FOLIC ACID 1 MG TABLET PO SCH (10:17)
[2019-09-19] MEDS: acetaZOLAMIDE 250 MG TAB PO SCH (10:17)
[2019-09-19] MEDS: POLYETHYL GLY 3350 17 GM/DOSE PO SCH (10:18)
--- NOTE | 2019-09-19 12:29 | RAD REPORT ---
EXAM DESCRIPTION: CT - Head Brain Wo Cont - 09/19/2019 12:19 pm CLINICAL HISTORY: Fall, head injury COMPARISON: None. TECHNIQUE: Axial 5 mm thick images of the head were obtained without IV contrast. All CT scans are performed using dose optimization technique as appropriate and may include automated exposure control or mA/KV adjustment according to patient size. FINDINGS: No intracranial hemorrhage, mass, edema or shift of mid-line structures. No acute infarcti on changes seen. No abnormal extra-axial fluid collections. Ventricles are normal. Dense choroid plex us calcifications are present. Mastoid air cells and visualized portions of the paranasal sinuses are clear. No acute bony findings. IMPRESSION: Negative non-contrast CT head examination for hemorrhage or other acute finding.
[2019-09-19 12:33] VITALS: BP 125/76; TEMP 97.1
--- NOTE | 2019-09-19 13:02 | RAD REPORT ---
EXAM DESCRIPTION: RAD - Lumbar Spine 3 Views - 09/19/2019 12:53 pm CLINICAL HISTORY: Fall, back pain COMPARISON: None. FINDINGS: A three-view lumbar spine examination was performed. Lateral view is suboptimal. Patient is incompletely rotated. Bones do appear osteopenic for age. No a cute compression fractures seen. No lytic, sclerotic or expansile destructive process. No abnormal di sc space narrowing identified. Facet joint degenerative changes mild. No pars defects identified. Num erous surgical clips overlie the midline abdomen. Bilateral hip prostheses in place. IMPRESSION: Osteopenic and degenerative changes are present. No acute findings seen.
--- NOTE | 2019-09-19 13:19 | RAD REPORT ---
EXAM DESCRIPTION: RAD - Hip Right 2 View - 09/19/2019 12:53 pm CLINICAL HISTORY: Fall, hip pain COMPARISON: March 2013 FINDINGS: AP and frog-leg views of the right hip were obtained. There is no fracture or dislocation . Increasing lucency has developed since 2013 in the intertrochanteric and proximal motion affect. C ortical thickening has developed around the distal aspect of the implant. This is a pattern seen with stress loading or stress transfer to the distal aspect of the implant. IMPRESSION: No fracture or acute finding seen. Bony reactive changes around the distal shaft of the implant since 2012 indicating stress loading to the distal implant. Proximal osteopenic changes are present.
--- NOTE | 2019-09-19 13:20 | RAD REPORT ---
EXAM DESCRIPTION: RAD - Hip Left 2 View - 09/19/2019 12:53 pm CLINICAL HISTORY: Fall, hip pain COMPARISON: March 2011 FINDINGS: AP and frogleg views of the left hip were obtained. Left total hip prosthesis in place. No fracture or dislocation. No adequate comparison is seen after implant placement. Patient has a stres s shielding or stress loading pattern in the proximal left femur slightly less pronounced than seen o n the right. There is proximal osteopenic change. No soft tissue abnormality. IMPRESSION: No fracture, dislocation or acute hip joint finding. Stress shielding or stress loading pattern to the distal aspect of the implant noted similar to the r ight.
--- NOTE | 2019-09-19 13:22 | RAD REPORT ---
EXAM DESCRIPTION: RAD - Knee Left 2 View - 09/19/2019 12:53 pm CLINICAL HISTORY: Fall, left knee pain COMPARISON: April 2015 FINDINGS: A revision knee prosthesis in place on the left. No fracture is identified. Periosteal barbara nges are present along the distal femoral shaft and metaphysis unrelated to current injury. No radiog raphic evidence for loosening.No joint effusion seen. No soft tissue abnormality. IMPRESSION: Left knee revision prosthesis in place showing no fracture, dislocation or acute finding . Periosteal changes along the distal femoral shaft and metaphysis are present new from 2015 postop ann ging.
--- NOTE | 2019-09-19 13:24 | RAD REPORT ---
EXAM DESCRIPTION: RAD - Elbow Left 2 View - 09/19/2019 12:53 pm CLINICAL HISTORY: Fall, elbow pain COMPARISON: None. FINDINGS: No fracture is identified and no elevated posterior fat pad. Mild degenerative changes are present. There is no dislocation or periosteal reaction noted. No foreign body or other soft tissue abnormalit y. IMPRESSION: Negative left elbow examination.
--- NOTE | 2019-09-19 13:24 | RAD REPORT ---
EXAM DESCRIPTION: RAD - Shoulder Left 2 View - 09/19/2019 12:53 pm CLINICAL HISTORY: Fall, left shoulder pain COMPARISON: None. TECHNIQUE: Internal and external rotation views of the left shoulder were obtained. FINDINGS: There is no fracture or dislocation. AC joint is normal in appearance. Degenerative change s are present at the glenohumeral joint space. Joint space is narrowed. Prominent spurs are seen zoila g the inferior aspect of the humerus and glenoid. IMPRESSION: Negative two-view left shoulder examination for fracture or acute finding.
[2019-09-19] MEDS ORDERED: HEPARIN 500 UNIT/5 ML SYR IV PRN (13:41)
[2019-09-19 15:02] VITALS: O2SAT 97
--- NOTE | 2019-09-20 06:59 | DS ---
Date of Discharge: 09/19/2019 Disposition: Discharged to go home. Physical Examination: HEENT: Unremarkable. Lungs: Clear to auscultation. Heart: Sounds normal. Abdomen: Soft. Bowel sounds normal. No guarding, rigidity, tenderness, distention. Extremities: No leg edema. Discharge Medications And Instructions: 1.Continue all prior home medications except change prednisone take 20 mg 2 times a day for 2 days, then 20 mg daily for 2 days, then 10 mg daily to continue as maintenance dose. 2.MiraLax 17 g powder mixed in 8-ounce water and drink it 2 times a day. 3.Follow up at my office in 1 week. 4.Follow up with Dr. Norton in 2 weeks. 5.Take Levaquin 500 mg p.o. daily for 1 week. Hospital Course: A 58-year-old male patient admitted to the hospital after he presented to the emerg ency room with nausea, vomiting, and abdominal pain. Please see dictated H and P for more informatio n. After patient was evaluated in the emergency room, he was admitted to the hospital. His CAT scan of the abdomen showed evidence of constipation, but no evidence of bowel obstruction. Chest x-ray d id not show any pneumonia. When I saw him on Wednesday for this admission, he did not look good. I was concerned about his overall health and I transferred him to ICU as he was not able to keep any food or liquids down for 2-3 days before he came into the hospital and he was going into atrial fibrillati on with rapid ventricular rate. He was transferred to ICU. IV antibiotics, IV steroid was given to him. Cardiology consultation was requested from Dr. Phillips. Echocardiogram done during this hospit alization showed normal ejection fraction. The patient had significant hypocalcemia problem and Neph rology consultation was requested from Dr. Hernandez. His calcium level was corrected with IV calcium gluconate, oral calcium supplement, and vitamin D supplement. His vitamin D level was low at 19 and parathyroid hormone level was elevated at 102. After his condition was stable in ICU, he was transfe rred out of ICU to regular room. Physical therapy was consulted and he started ambulating well. He started tolerating diet very well. He has ongoing chronic problem with nausea, vomiting. He takes l ot of Zofran, Benadryl, and Phenergan at home. Also takes pain medications on a daily basis, which i s hydrocodone and in the hospital requires higher dose IV pain medication. says that recently h ad an outpatient EGD with Dr. Norton and he was concerned about possibility of gastroparesis, but p atient had a side effect with Reglan, so he is not able to take that. I have advised him to continue to follow with Dr. Norton for further management of that problem. His narcotic pain medication us e can definitely cause his ongoing constipation problem. Dr. Celestin from General Surgery was consulte d and he gave enema over the weekend and he had bowel movement during those days. I started MiraLax yesterday and advised him to continue that. If MiraLax does not help, we may consider Movantik on ou tpatient basis. We did discuss about the patient should use less and less Phenergan as that definite ly can contribute to constipation problem and I am concerned that Phenergan and hydrocodone on outpat ient basis may contribute to his gastroparesis problem. All those details were discussed with him an d his this morning. His urine culture grew Enterobacter and it is sensitive to Levaquin. Margie g this hospitalization, he received IV Zosyn and this bacteria is sensitive to the antibiotic as well . His IV steroid was changed to oral steroid as of yesterday. Today, after I saw him, I wrote the d ischarge order and around 11 to 11:30 a.m., nurse contacted me informed me that the patient was in th e shower and he slipped and fell down and hit back of his head and his hip and was complaining of geri n in his shoulder, elbow, hip, and back of the head. So, CAT scan of the head was done stat, which w as negative for any acute changes. X-ray of shoulder, elbow, bilateral hip and lower back was negati ve for any acute findings. The patient was discharged to go home in stable condition with above-ment ioned medication instructions. Laboratory Data: Initial white count 8.7, hemoglobin 12.1, platelets 280, last white count today 5.5 , hemoglobin 9.2, platelets 193. Last chemistry today sodium 140, potassium 4.1, chloride 103, bicar b 35, BUN 6, creatinine 0.93, glucose 197, magnesium 1.8, phosphorus 1.1. Upon admission, sodium 138 , potassium 3.2, chloride 100, bicarb 28, BUN 16, creatinine 0.87, glucose 158, calcium 5.4. Final Diagnoses: 1.Urinary tract infection. 2.Constipation. 3.Gastroparesis. 4.Gastroesophageal reflux disease. 5.Hypocalcemia. 6.Hypokalemia. 7.Anemia, unspecified. 8.Paroxysmal atrial fibrillation. 9.Crohn disease. 10.Sleep apnea. 11.Rheumatoid arthritis. 12.Ventral abdominal wall hernia. 13.Urethral stricture. 14.Chronic steroid therapy. 15.Chronic anticoagulation therapy. 16.Hypertension. JORDAN/MODL Voice ID: [id number] Report ID: [id number]
== END 2019-09-19 14:34 | disposition home or self-care (01) | DRG 689 ==
LOC: ER 18:26 → ERHOLD 22:17 → 2ND 22:24 → OBSVTOIN 09-15 07:52 → 3RD-ICU 09-15 10:03 → 4TH 09-17 16:20
PROVIDERS: ADMIT Internal Medicine; ATTEND Internal Medicine
PROC: 5A09357 Assistance with Respiratory Ventilation, Less than 24 Consecutive Hours, Continuous Positive Airway Pressure (ICD-10-PCS; principal; 2019-09-15)
DX: N39.0 Urinary tract infection, site not specified (principal); J96.21 Acute and chronic respiratory failure with hypoxia; K50.90 Crohn's disease, unspecified, without complications; N25.81 Secondary hyperparathyroidism of renal origin; Z68.42 Body mass index [BMI] 45.0-49.9, adult; B96.89 Other specified bacterial agents as the cause of diseases classified elsewhere; K59.00 Constipation, unspecified; K31.84 Gastroparesis; K21.9 Gastro-esophageal reflux disease without esophagitis; E83.51 Hypocalcemia; E87.6 Hypokalemia; D64.9 Anemia, unspecified; I48.0 Paroxysmal atrial fibrillation; I10 Essential (primary) hypertension; G47.30 Sleep apnea, unspecified; M06.9 Rheumatoid arthritis, unspecified; Z79.52 Long term (current) use of systemic steroids; Z79.01 Long term (current) use of anticoagulants; N35.919 Unspecified urethral stricture, male, unspecified site; Z91.040 Latex allergy status; R21 Rash and other nonspecific skin eruption; E66.01 Morbid (severe) obesity due to excess calories
CPT/HCPCS: 36415; 70450; 71045; 72100; 74177; 80048; 80053; 80076; 81003; 81015; 82306; 82330; 82550; 82553; 82805; 82947; 83605; 83690; 83735; 83970; 84100; 84132; 84145; 84484; 85025; 85610; 85730; 87040; 87077; 87086; 87088; 87186; 90471; 93005; 93306; 94660; 94760; 96361; 96365; 96375; 99285; C9113; G0378; J0610; J1170; J1450; J1642; J1720; J2405; J2543; J2550; J3010; J3475; J7030; J7512; Q2035; Q9967

== ENCOUNTER 2020-01-14 13:27 | Inpatient (IN) | payer OTHER ==
[2020-01-14] MEDS ORDERED: PROMETHAZINE INJ 25 MG/ML AMP ONE ×3 (14:16→19:00)
[2020-01-14] MEDS ORDERED: NA CHLORIDE 0.9% 2,000 ML ONE (14:17)
[2020-01-14 14:51] LABS: Absolute Lymphocytes (CBC) 1.1 K/uL (0.7-4.9); Basophils % 0.2 % (0-1.3); Hematocrit 37.6 % (39.6-49.0); Lymphocytes % 11.7 % (15.3-44.8); MPV 8.6 fL (7.6-11.3); RBC Red Blood Cell Count 3.64 M/uL (4.33-5.43)
[2020-01-14 15:09] LABS: Albumin 3.7 g/dL (3.4-5.0); Bilirubin Direct 0.2 mg/dL (0-0.2); Bilirubin Total 0.4 mg/dL (0.2-1.0); Potassium 4.5 mmol/L (3.5-5.1); Protein, Total 6.5 g/dL (6.4-8.2)
[2020-01-14] MEDS ORDERED: FENTANYL CITR 100 MCG/2 ML ONE (15:34)
--- NOTE | 2020-01-14 17:54 | RAD REPORT ---
EXAM DESCRIPTION: CT - Abdomen Pelvis W Contrast - 01/14/2020 5:38 pm CLINICAL HISTORY: Abdominal pain. COMPARISON: 2018 TECHNIQUE: Computed axial tomography of the abdomen and pelvis was obtained. 100 cc Isovue-300 is ad ministered intravenously. Oral contrast was given. All CT scans are performed using dose optimization technique as appropriate and may include automated exposure control or mA/KV adjustment according to patient size. FINDINGS: Marked diastases of the rectus abdominis muscles. The sigmoid colon is decompressed. The descending colon contains a moderate amount of stool and is di lated to 7 centimeters. The transverse colon is mostly air-filled measuring 9 centimeters. The ascend ing colon measures 12 centimeters. It contains liquid stool. Small bowel caliber is mostly within normal limits. There is 1 mildly dilated loop. Liver, spleen, pancreas and adrenals are unremarkable. Left kidney atrophic. Small right renal cysts. IMPRESSION: Moderate amount of stool is present throughout portions of the colon with dilated descen ding, transverse and ascending colon. The sigmoid colon is decompressed. This could be secondary to a fecal impaction.
--- NOTE | 2020-01-14 18:37 | ER ---
Nurse's Notes [facility] Name: Husam Vela Age: 59 yrs Sex: Male : 1960 Arrival Date: 01/14/2020 Time: 13:30 Bed 4 Private MD: Diagnosis: Fecal impaction;Dehydration;Generalized abdominal pain Presentation: 01/14 13:46 Presenting complaint: Patient states: Abdominal pain, N/V since 1 week ago. Denies ca1 diarrhea. States, "We thought it was a possible obstruction so we did Dulcolax, enemas, but was unsuccessful". Transition of care: patient was not received from another setting of care. Onset of symptoms was January 14, 2020. Risk Assessment: Do you want to hurt yourself or someone else? Patient reports no desire to harm self or others. Initial Sepsis Screen: Does the patient meet any 2 criteria? No. Patient's initial sepsis screen is negative. Does the patient have a suspected source of infection? No. Patient's initial sepsis screen is negative. Care prior to arrival: None. 13:46 Method Of Arrival: Wheelchair ca1 13:46 Acuity: CECI 3 ca1 Historical: - Allergies: 13:50 Demerol; ca1 13:50 Latex, Natural Rubber; ca1 13:50 Remicade; ca1 - Home Meds: 13:50 acetazolamide 250 mg Oral tab 1 tab once daily [Active]; anakinra subcutaneous once ca1 daily [Active]; chlorthalidone 25 mg Oral tab 1 tab once daily [Active]; Cymbalta 60 mg Oral cpDR 2 caps once daily [Active]; folic acid 1 mg Oral tab 1 tab once daily [Active]; methotrexate (PF) subcutaneous [Active]; [place] 7.5-325 mg Oral tab 1 tab every 6 hours [Active]; prednisone 5 mg Oral tab 3 tabs once daily [Active]; Protonix 40 mg Oral chew 1 tab once daily [Active]; sotalol 120 mg Oral tab 1 tab 2 times per day [Active]; spironolactone 50 mg Oral tab 1 tab 2 times per day [Active]; Xarelto 20 mg Oral tab 1 tab once daily [Active]; - PMHx: 13:50 Atrial Fib; Hypertension; left 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 - Coronavirus screen:: The patient has NOT traveled to [place] in the past 14 days. The patient has NOT had contact with known/suspected case of Coronavirus?. - Social history:: Smoking status: Patient denies any tobacco usage or history of. - Family history:: not pertinent. - Ebola Screening: : Patient negative for fever greater than or equal to 101.5 degrees Fahrenheit, and additional compatible Ebola Virus Disease symptoms Patient denies exposure to infectious person Patient denies travel to an Ebola-affected area in the 21 days before illness onset No symptoms or risks identified at this time. - Hospitalizations: : No recent hospitalization is reported. Screenin:07 Abuse screen: Denies threats or abuse. Denies injuries from another. Nutritional ph screening: No deficits noted. Tuberculosis screening: No symptoms or risk factors identified. Fall Risk No fall in past 12 months (0 pts). No secondary diagnosis (0 pts). IV access (20 points). Ambulatory Aid- None/Bed Rest/Nurse Assist (0 pts). Gait- Weak (10 pts.). Mental Status- Oriented to own ability (0 pts). Total Plasencia Fall Scale indicates Low Risk Score (25-44 pts). Fall prevention measures have been instituted. Side Rails Up X 2 Frequent Obs/Assesments occuring Family Present and informed to notify staff if they need to leave bedside As available Patient and Family Educated on Fall Prevention Program and strategies. Assessment: 15:07 General: Appears in no apparent distress. comfortable, obese, well groomed, Behavior is ph calm, cooperative, appropriate for age, Denies fever, feeling ill. Pain: Complains of pain in right upper quadrant and left upper quadrant Pain does not radiate. Neuro: Level of Consciousness is awake, alert, obeys commands, Oriented to person, place, time, situation. Cardiovascular: Capillary refill < 3 seconds in bilateral fingers. Respiratory: Airway is patent Respiratory effort is even, unlabored, Respiratory pattern is regular, symmetrical. GI: Abdomen is distended, obese, Reports upper abdominal pain, constipation, nausea, vomiting. Derm: Skin is intact, is healthy with good turgor, Skin is pink, warm \\T\\ dry. Musculoskeletal: Circulation, motion, and sensation intact. Range of motion: intact in all extremities. 16:35 Reassessment: Patient appears in no apparent distress at this time. Patient and/or ph family updated on plan of care and expected duration. Pain level reassessed. Patient is alert, oriented x 3, equal unlabored respirations, skin warm/dry/pink. Pt resting comfortably, reports that pain and nausea have decreased, awaiting CT scan, family at bedside. 17:30 Reassessment: Patient appears in no apparent distress at this time. Patient and/or ph family updated on plan of care and expected duration. Pain level reassessed. Patient is alert, oriented x 3, equal unlabored respirations, skin warm/dry/pink. 18:39 Reassessment: Patient appears in no apparent distress at this time. Patient and/or ph family updated on plan of care and expected duration. Pain level reassessed. Patient is alert, oriented x 3, equal unlabored respirations, skin warm/dry/pink. 19:05 Reassessment: Patient appears in no apparent distress at this time. Patient and/or jb4 family updated on plan of care and expected duration. Pain level reassessed. Patient is alert, oriented x 3, equal unlabored respirations, skin warm/dry/pink. is at the bedside. Pt reports feeling more comfortable after medication administration. Given a sheet to cover up with per request. Patient states feeling better. 19:53 Reassessment: Report given to STACEY Ross. jb4 20:11 Reassessment: Patient appears in no apparent distress at this time. Patient and/or jb4 family updated on plan of care and expected duration. Pain level reassessed. Patient is alert, oriented x 3, equal unlabored respirations, skin warm/dry/pink. Pt's b/p dropped to 86/62 with a heart rate of 85. Pt denies dizziness and reports that it will normally drop to the 80's. Pt's confirms statement. Pt remains alert and oriented. Vital Signs: 13:50 BP 98 / 70; Pulse 100; Temp 96(TE); Pulse Ox 95% on R/A; Weight 149.69 kg (R); Height 6 ca1 ft. 2 in. (187.96 cm) (R); 15:18 BP 95 / 70; Pulse 88; Resp 18; Pulse Ox 98% on 2 lpm NC; ph 16:37 BP 82 / 61; Pulse 86; Resp 18; Pulse Ox 97% on 2 lpm NC; ph 17:30 BP 99 / 76; Pulse 85; Resp 16; Pulse Ox 99% on 2 lpm NC; ph 18:40 BP 105 / 72; Pulse 87; Resp 18; Pulse Ox 100% on 2 lpm NC; ph 19:30 BP 100 / 83; Pulse 85; Resp 18; Temp 98.3(O); Pulse Ox 100% on 2 lpm NC; jb4 20:00 BP 86 / 62; Pulse 85; Resp 20; Pulse Ox 99% on 2 lpm NC; jb4 13:50 Body Mass Index 42.37 (149.69 kg, 187.96 cm) ca1 ED Course: 13:30 Patient arrived in ED. as 13:32 Salvador Goldstein MD is Attending Physician. rn 13:48 Triage completed. ca1 13:49 Sintia Kelley RN is Primary Nurse. ph 13:50 Arm band placed on right wrist. ca1 14:50 Inserted saline lock: 22 gauge in left antecubital area, using aseptic technique. Blood ph collected. 15:00 Initial lab(s) drawn, by me, sent to lab. Accessed Port-a-Cath. using accessed w/ # 20 ph Harris needle, ,sterile technique, per hospital protocol. Clean \\T\\ dry. Dressing intact. No blood return. Flushes easily. 15:15 Patient has correct armband on for positive identification. Placed in gown. Bed in low ph position. Call light in reach. Side rails up X2. Pulse ox on. NIBP on. Door closed. Noise minimized. Warm blanket given. Pillow given. 17:38 CT completed. Patient tolerated procedure well. Patient moved back from CT. bq 17:49 CT Abd/Pelvis - PO and IV Contrast In Process Unspecified. EDMS 18:35 Yuliana Tubbs MD is Hospitalizing Provider. rn 18:40 No provider procedures requiring assistance completed. Patient admitted, IV remains in ph place. 19:09 Primary Nurse role handed off by Sintia Kelley, STACEY jb4 19:09 Ryan Garcia, STACEY is Primary Nurse. jb4 19:48 IV is patent, is intact, with fluids infusing freely, with good blood return. jb4 Administered Medications: 14:55 Drug: Phenergan 25 mg Route: IVP; Site: left antecubital; ph 18:42 Follow up: Response: No adverse reaction; Nausea is decreased ph 15:05 Drug: NS 0.9% 1000 ml Route: IV; Rate: 1000 ml; Site: Port-a-cath; ph 20:19 Follow up: Response: No adverse reaction; IV Status: Completed infusion; IV Intake: jb4 1000ml 15:40 Drug: fentaNYL (PF) 50 mcg Route: IVP; Site: Port-a-cath; ph 16:00 Follow up: Response: No adverse reaction; Pain is decreased; RASS: Alert and Calm (0) ph 16:56 Drug: NS 0.9% 1000 ml Route: IV; Rate: 1000 ml; Site: Port-a-cath; ph 18:42 Follow up: Response: No adverse reaction; IV Status: Completed infusion; IV Intake: ph 1000ml 19:00 Drug: Phenergan 12.5 mg Route: IVP; Site: Port-a-cath; ph 19:17 Follow up: Response: No adverse reaction; Nausea is decreased ph 19:01 Drug: fentaNYL (PF) 50 mcg Route: IVP; Site: Port-a-cath; ph 19:17 Follow up: Response: No adverse reaction; Pain is decreased ph Intake: 18:42 IV: 1000ml; Total: 1000ml. ph 20:19 IV: 1000ml; Total: 2000ml. jb4 Outcome: 18:35 Decision to Hospitalize by Provider. rn 19:53 Admitted to Tele accompanied by tech, via stretcher, room 405, with oxygen, with chart, jb4 Report called to STACEY Ross 19:53 Condition: stable 19:53 Discharge instructions given to patient, family, Instructed on the need for admit, Demonstrated understanding of instructions. 20:18 Patient left the ED. jb4 Signatures: Dispatcher [employer] EDMS Lisbet Spencer Amelia as Nieto, Roman, MD MD rn Hall, Patricia, RN RN ph Bryson, James, RN RN jb4 Tiffany Marie RN RN ca1 Corrections: (The following items were deleted from the chart) 19:48 19:30 BP 100 / 83; Pulse 85bpm; Resp 18bpm; Pulse Ox 100% 2 lpm Nasal Cannula; jb4 jb4 20:18 19:53 Admitted to Tele accompanied by tech, via wheelchair, room 405, with oxygen, with jb4 chart, Report called to STACEY Ross jb4
--- NOTE | 2020-01-14 18:37 | EDPHYS ---
Physician Documentation [facility] Name: Husam Vela Age: 59 yrs Sex: Male : 1960 Arrival Date: 01/14/2020 Time: 13:30 Bed 4 Private MD: ED Physician Salvador Goldstein HPI: 01/14 14:55 This 59 yrs old Male presents to ER via Wheelchair with complaints of rn Abdominal Pain, Nausea/Vomiting. 14:55 The patient presents to the emergency department with nausea, vomiting, abdominal pain. rn Onset: The symptoms/episode began/occurred 1 week(s) ago. Possible causes: unknown. The symptoms are aggravated by nothing. The symptoms are alleviated by nothing. Severity of symptoms: At their worst the symptoms were moderate in the emergency department the symptoms are unchanged. The patient has experienced similar episodes in the past. Reports abd pain, constipation, unable to have bowel movement, not improved with laxatives, + vomiting. No fever. Has had bowel obstruction and perforation in past. . Historical: - Allergies: 13:50 Demerol; ca1 13:50 Latex, Natural Rubber; ca1 13:50 Remicade; ca1 - Home Meds: 13:50 acetazolamide 250 mg Oral tab 1 tab once daily [Active]; anakinra subcutaneous once ca1 daily [Active]; chlorthalidone 25 mg Oral tab 1 tab once daily [Active]; Cymbalta 60 mg Oral cpDR 2 caps once daily [Active]; folic acid 1 mg Oral tab 1 tab once daily [Active]; methotrexate (PF) subcutaneous [Active]; [place] 7.5-325 mg Oral tab 1 tab every 6 hours [Active]; prednisone 5 mg Oral tab 3 tabs once daily [Active]; Protonix 40 mg Oral chew 1 tab once daily [Active]; sotalol 120 mg Oral tab 1 tab 2 times per day [Active]; spironolactone 50 mg Oral tab 1 tab 2 times per day [Active]; Xarelto 20 mg Oral tab 1 tab once daily [Active]; - PMHx: 13:50 Atrial Fib; Hypertension; left 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 - Coronavirus screen:: The patient has NOT traveled to [place] in the past 14 days. The patient has NOT had contact with known/suspected case of Coronavirus?. - Social history:: Smoking status: Patient denies any tobacco usage or history of. - Family history:: not pertinent. - Ebola Screening: : Patient negative for fever greater than or equal to 101.5 degrees Fahrenheit, and additional compatible Ebola Virus Disease symptoms Patient denies exposure to infectious person Patient denies travel to an Ebola-affected area in the 21 days before illness onset No symptoms or risks identified at this time. - Hospitalizations: : No recent hospitalization is reported. ROS: 14:55 Constitutional: Negative for fever, chills, and weight loss, Eyes: Negative for injury, rn pain, redness, and discharge, Cardiovascular: Negative for chest pain, palpitations, and edema, Respiratory: Negative for shortness of breath, cough, wheezing, and pleuritic chest pain, Abdomen/GI: + abd pain and constipation, + vomiting : Negative for injury, bleeding, discharge, and swelling, MS/Extremity: Negative for injury and deformity, Skin: Negative for injury, rash, and discoloration, Neuro: Negative for headache, + generalized weakness Exam: 14:55 Constitutional: This is a well developed, well nourished patient who is awake, alert, rn appears uncomfortable Head/Face: Normocephalic, atraumatic. ENT: dry MM Cardiovascular: Regular rate and rhythm. No pulse deficits. Respiratory: Mild tachypnea, speaking full sentences, winded when laying flat Abdomen/GI: soft, mild left sided abd tenderness, no skin changes, + chronic large ventral hernia Skin: Warm, dry MS/ Extremity: Pulses equal, no cyanosis. Vital Signs: 13:50 BP 98 / 70; Pulse 100; Temp 96(TE); Pulse Ox 95% on R/A; Weight 149.69 kg (R); Height 6 ca1 ft. 2 in. (187.96 cm) (R); 15:18 BP 95 / 70; Pulse 88; Resp 18; Pulse Ox 98% on 2 lpm NC; ph 16:37 BP 82 / 61; Pulse 86; Resp 18; Pulse Ox 97% on 2 lpm NC; ph 17:30 BP 99 / 76; Pulse 85; Resp 16; Pulse Ox 99% on 2 lpm NC; ph 18:40 BP 105 / 72; Pulse 87; Resp 18; Pulse Ox 100% on 2 lpm NC; ph 19:30 BP 100 / 83; Pulse 85; Resp 18; Temp 98.3(O); Pulse Ox 100% on 2 lpm NC; jb4 20:00 BP 86 / 62; Pulse 85; Resp 20; Pulse Ox 99% on 2 lpm NC; jb4 13:50 Body Mass Index 42.37 (149.69 kg, 187.96 cm) ca1 MDM: 13:41 Patient medically screened. rn 18:29 Differential diagnosis: Nonspecific abd pain, fecal impaction, obstruction, dehydration.rn 18:31 Data reviewed: vital signs, nurses notes, lab test result(s), radiologic studies, CT rn scan, and as a result, I will admit patient. Counseling: I had a detailed discussion with the patient and/or guardian regarding: the historical points, exam findings, and any diagnostic results supporting the discharge/admit diagnosis, lab results, radiology results, the need for further work-up and treatment in the hospital. Response to treatment: the patient's symptoms have mildly improved after treatment, and as a result, I will admit patient. Admission orders: after a detailed discussion of the patient's condition and case, the admit orders are written by me. ED course: Consulted with Jersey Joya and Dr. Celestin, no surgical intervention, recommend bowel regimen, mineral oil, IV hydration, and GI consult. Jersey Norton on available tomorrow. Will admit. Spoke with Dr. Vazquez who is covering for Dr. Tubbs.. 01/14 13:57 Order name: Basic Metabolic Panel; Complete Time: 15:16 rn 01/14 13:57 Order name: CBC with Diff; Complete Time: 15:16 rn 01/14 13:57 Order name: Creatinine for Radiology; Complete Time: 15:16 01/14 13:57 Order name: Hepatic Function; Complete Time: 15:16 01/14 13:57 Order name: Lipase; Complete Time: 15:16 01/14 13:57 Order name: CT Abd/Pelvis - PO and IV Contrast rn 01/14 13:57 Order name: IV Saline Lock; Complete Time: 15:05 rn 01/14 13:57 Order name: Labs collected and sent; Complete Time: 15:05 rn Administered Medications: 14:55 Drug: Phenergan 25 mg Route: IVP; Site: left antecubital; ph 18:42 Follow up: Response: No adverse reaction; Nausea is decreased ph 15:05 Drug: NS 0.9% 1000 ml Route: IV; Rate: 1000 ml; Site: Port-a-cath; ph 20:19 Follow up: Response: No adverse reaction; IV Status: Completed infusion; IV Intake: jb4 1000ml 15:40 Drug: fentaNYL (PF) 50 mcg Route: IVP; Site: Port-a-cath; ph 16:00 Follow up: Response: No adverse reaction; Pain is decreased; RASS: Alert and Calm (0) ph 16:56 Drug: NS 0.9% 1000 ml Route: IV; Rate: 1000 ml; Site: Port-a-cath; ph 18:42 Follow up: Response: No adverse reaction; IV Status: Completed infusion; IV Intake: ph 1000ml 19:00 Drug: Phenergan 12.5 mg Route: IVP; Site: Port-a-cath; ph 19:17 Follow up: Response: No adverse reaction; Nausea is decreased ph 19:01 Drug: fentaNYL (PF) 50 mcg Route: IVP; Site: Port-a-cath; ph 19:17 Follow up: Response: No adverse reaction; Pain is decreased ph Disposition: 01/14/20 18:35 Hospitalization ordered by Yuliana Tubbs for Inpatient Admission. Preliminary diagnosis are Fecal impaction, Dehydration, Generalized abdominal pain. - Bed requested for Telemetry/MedSurg (Inpatient). - Status is Inpatient Admission. jb4 - Condition is Stable. - Problem is an ongoing problem. - Symptoms are unchanged. Signatures: Dispatcher [employer] EDSalvador Mendenhall MD MD rn Hall, Patricia, RN RN ph Corry Vera RN RN cg Bryson, James, RN RN jb4 Tiffany Marie RN RN ca1 Corrections: (The following items were deleted from the chart) 19:38 18:35 Hospitalization Ordered by Yuliana Tubbs MD for Inpatient Admission. Preliminary cg diagnosis is Fecal impaction; Dehydration; Generalized abdominal pain. Bed requested for Telemetry/MedSurg (Inpatient). Status is Inpatient Admission. Condition is Stable. Problem is an ongoing problem. Symptoms are unchanged. rn 20:18 19:38 01/14/2020 18:35 Hospitalization Ordered by A Suly PRICE for Inpatient Admission. jb4 Preliminary diagnosis is Fecal impaction; Dehydration; Generalized abdominal pain. Bed requested for Telemetry/MedSurg (Inpatient). Status is Inpatient Admission. Condition is Stable. Problem is an ongoing problem. Symptoms are unchanged. cg
[2020-01-14] MEDS ORDERED: LACTULOSE 20 GM/30 ML UCUP PO ONE (20:18)
[2020-01-14] MEDS ORDERED: MINERAL OIL 30 ML UCUP PO ONE (20:18)
[2020-01-14 20:25] VITALS: BMI 42.0
[2020-01-14] MEDS: NA CHLORIDE 0.9% 1,000 ML IV SCH (21:03)
[2020-01-14] MEDS: PROMETHAZINE INJ 25 MG/ML AMP IV PRN (23:04)
[2020-01-14] MEDS: FENTANYL CITR 100 MCG/2 ML IV PRN (23:04)
[2020-01-15] MEDS ORDERED: FENTANYL CITR 100 MCG/2 ML IV ONE (02:06)
[2020-01-15] MEDS: PROMETHAZINE INJ 25 MG/ML AMP IV PRN ×6 (02:21→22:29)
[2020-01-15 04:36] LABS: Absolute Lymphocytes (CBC) 2.1 K/uL (0.7-4.9); Basophils % 0.2 % (0-1.3); Lymphocytes % 19.1 % (15.3-44.8); MPV 9.1 fL (7.6-11.3); RBC Red Blood Cell Count 3.59 M/uL (4.33-5.43)
[2020-01-15] MEDS: FENTANYL CITR 100 MCG/2 ML IV PRN ×5 (04:39→22:30)
[2020-01-15 04:51] LABS: Potassium 3.3 mmol/L (3.5-5.1)
[2020-01-15] MEDS: NA CHLORIDE 0.9% 1,000 ML IV SCH ×3 (08:13→18:01)
[2020-01-15] MEDS ORDERED: HYDROCODONE/APAP 10/325 TAB PO PRN (08:17)
[2020-01-15] MEDS ORDERED: BISACODYL 10 MG RECTAL SUPP PR ONE (08:17)
[2020-01-15] MEDS ORDERED: predniSONE 5 MG TAB PO SCH (09:00)
[2020-01-15 09:12] LABS: Blood Morphology Comment NOT SEEN (NOT SEEN); Platelet Estimate ADEQ; Urine White Blood Cell Casts OK
[2020-01-15] MEDS ORDERED: ONDANSETRON 4 MG/2 ML VIAL IV PRN (09:48)
[2020-01-15 10:05] LABS: Urine Appearance CLEAR; Urine Bilirubin NEGATIVE (NEG); Urine Blood NEGATIVE (NEG); Urine Color YELLOW; Urine Glucose NEGATIVE (NEG); Urine Protein NEGATIVE (NEG); Urine Urobilinogen 0.2 mg/dL (0.2-1.0)
[2020-01-15 11:05] LABS: Urine Bacteria 20-50 /HPF (NONE SEEN); Urine Culture Reflex Order REFLEXED; Urine RBC <5 /HPF (NONE SEEN)
[2020-01-15] MEDS: SOTALOL HCL 80 MG TAB PO SCH ×2 (11:05→21:30)
[2020-01-15] MEDS: DULOXETINE 30 MG CAP PO SCH (11:06)
[2020-01-15] MEDS: RIVAROXABAN 20 MG TABLET PO SCH (11:06)
[2020-01-15] MEDS: PANTOPRAZOLE 40MG TABLET PO SCH (11:06)
[2020-01-15] MEDS: FOLIC ACID 1 MG TABLET PO SCH (11:07)
[2020-01-15] MEDS ORDERED: METHYLPREDNISOLONE 40 MG INJ IV ONE (11:12)
[2020-01-15] MEDS: SPIRONOLACTONE 25 MG TABLET PO SCH ×2 (12:07→21:32)
[2020-01-15] MEDS: acetaZOLAMIDE 250 MG TAB PO SCH (12:08)
[2020-01-15] MEDS: CHLORTHALIDONE 25 MG TAB PO SCH (12:08)
[2020-01-15] MEDS ORDERED: GOLYTELY 4000 ML PO SCH (18:00)
[2020-01-15] MEDS ORDERED: METHYLPREDNISOLONE 40 MG INJ IV SCH (21:00)
[2020-01-16] MEDS: PROMETHAZINE INJ 25 MG/ML AMP IV PRN ×3 (02:55→10:36)
[2020-01-16] MEDS: FENTANYL CITR 100 MCG/2 ML IV PRN ×3 (02:57→10:36)
[2020-01-16] MEDS: NA CHLORIDE 0.9% 1,000 ML IV SCH (03:04)
--- NOTE | 2020-01-16 07:38 | HP ---
Date of Admission: 01/14/2020 Chief Complaint: Abdominal pain, nausea, vomiting, and constipation. History Of Present Illness: This is a 59-year-old male patient who takes chronic narcotic pain medic ation, was on biological treatment because of Crohn disease and rheumatoid arthritis type of problem but lately, he has not been on it and try to manage his pain with the narcotic pain medication which is his chronic use and the use of narcotic pain medication has not changed lately. In last, he also takes a chronic steroid therapy anywhere from 15 to 20 mg a day. In last 1 week or so, he has not be en feeling well. He started to have constipation problem a week ago associated with abdominal pain a nd has been trying to take care of it at home with MiraLAX, Dulcolax tablets, enema, and had 1 bowel movement 4 days ago. After that, he has not had any bowel movement. With worsening symptoms, he cam e into emergency room after he was evaluated. He was admitted to the hospital. Medications: List reviewed. Allergies: TO DEMEROL, REMICADE, AND LATEX. Review of Systems: GI: As mentioned above. Musculoskeletal: Arthritis pain. All other systems reviewed and negative. Social History: Negative for smoking and alcohol use. Family History: Not pertinent. Past Medical History: Significant for paroxysmal atrial fibrillation, chronic anticoagulation therap y, sleep apnea, unable to use CPAP because of significant claustrophobia problem, hypertension, Crohn disease, chronic steroid therapy, chronic anticoagulation therapy, rheumatoid arthritis, ventral her shonda, morbid obesity, urethral stricture requiring daily catheterization of his bladder usually 2 time s a day, and recurrent urinary tract infection. Past Surgical History: Surgery for lysis of adhesions, Port-A-Cath placement, lysis of adhesions wit h segmental resection of small bowel due to small bowel obstruction without perforation, abdominal wa ll abscess and surgery for that as well as surgery for ventral abdominal hernia and knee surgery. Physical Examination: Vital Signs: Temperature 97.1, pulse 86, respiratory rate 18, blood pressure 120/92, oxygen saturati on 96%. Height 6 feet 2 inches, weight 327 pounds. General: Awake, alert, oriented, not in distress. HEENT: Head atraumatic, normocephalic. Conjunctivae nonerythematous. Sclerae white. Mouth, no thr ush or edema noted. Ears/Nose, no mass, lesion, discharge noted. Neck: Supple. No JVD, lymph nodes, bruit, thyromegaly noted. Lungs: Bilateral good equal air entry. Clear to auscultation. No rhonchi. No rales. Heart: Normal heart sounds, no murmur or gallop. Abdomen: Patient's abdomen is pendulous with multiple ventral hernia of anterior abdominal wall. Roche s mild diffuse tenderness scattered all over abdomen. No rebound tenderness. Bowel sounds normoacti ve. Extremities: No leg edema. No calf tenderness. Skin: No rash, ulcer, cellulitis. Lymphatics: No lymph node enlargement in neck, supraclavicular, infraclavicular region. Neuro: No focal neurological deficit. Chest: Unremarkable. External Genitalia: Deferred. Rectal: Deferred. Data: CT scan of abdomen with contrast in emergency room shows a moderate amount of stool present th roughout the colon and this includes ascending colon, transverse colon, and descending colon. Sigmoi d colon is decompressed. White count yesterday 9, hemoglobin 12, platelets 169. Today, white count 11.2, hemoglobin 12, plate lets 180. Yesterday, sodium 134, potassium 4.5, chloride 101, bicarb 29, BUN 23, creatinine 1.17, gl ucose 135. Liver function tests unremarkable. Lipase 125. Today, sodium 137, potassium 3.3, chlori de 103, bicarb 29, BUN 16, creatinine 0.95, glucose 130. Impression: 1.Severe constipation. 2.Anemia. 3.Hypokalemia. 4.Crohn disease. 5.Rheumatoid arthritis. 6.Paroxysmal atrial fibrillation. 7.Chronic steroid therapy. 8.Chronic anticoagulation therapy. 9.Gastroesophageal reflux disease. 10.Obstructive sleep apnea. 11.Ventral abdominal hernia. Plan: Admit patient to hospital for further evaluation and management of this problem. Patient is a ppropriate for inpatient and is expected to spend 2 midnights in hospital. I did talk to his christine hendrix when she does catheterization of his bladder next time, to collect urine specimen for urinalysis an d urine culture. Dulcolax rectal suppository will be given. GI consultation was requested from Dr. Norton and I did discuss details with him. Patient is at high risk from any kind of colonoscopy ty pe of procedure and Dr. Norton will try to manage him with conservative medical management at this point. His chronic use of narcotic pain medication definitely can contribute to this current constip ation problem, and we will follow with Dr. Norton regarding ongoing management of this constipation problem. At present time, there is no evidence of bowel obstruction. Home medications will be cont inued per order, and we will give IV steroid and depending on how he is able to tolerate diet, we imer l decide when to discontinue IV steroid. JORDAN/KENDALL Voice ID: [id number]
[2020-01-16] MEDS ORDERED: predniSONE 20 MG TAB PO SCH (09:00)
[2020-01-16] MEDS: SOTALOL HCL 80 MG TAB PO SCH (09:08)
[2020-01-16] MEDS: FOLIC ACID 1 MG TABLET PO SCH (09:09)
[2020-01-16] MEDS: RIVAROXABAN 20 MG TABLET PO SCH (09:09)
[2020-01-16] MEDS: DULOXETINE 30 MG CAP PO SCH (09:09)
[2020-01-16] MEDS: CHLORTHALIDONE 25 MG TAB PO SCH (09:09)
[2020-01-16] MEDS: SPIRONOLACTONE 25 MG TABLET PO SCH (09:10)
[2020-01-16] MEDS: PANTOPRAZOLE 40MG TABLET PO SCH (09:10)
[2020-01-16] MEDS: acetaZOLAMIDE 250 MG TAB PO SCH (09:10)
[2020-01-16 09:16] VITALS: O2SAT 92
[2020-01-16] MEDS ORDERED: HEPARIN 500 UNIT/5 ML SYR IV PRN (09:22)
[2020-01-16 13:11] VITALS: BP 116/63; TEMP 96.8
--- NOTE | 2020-01-16 21:53 | DS ---
Date of Discharge: 01/16/2020 Disposition: Discharged to go home. Physical Examination: HEENT: Unremarkable. Lungs: Clear to auscultation. Heart: Heart sounds normal. Abdomen: Soft, bowel sounds normal. No guarding, rigidity, tenderness, distention. Presence of abd ominal ventral hernia unchanged from before, but tenderness has resolved. Extremities: No leg edema. Laboratory Data: Labs done during this hospitalization. Urinalysis shows trace leukocyte esterase, 20-50 bacteria, wbc less than 5. His sodium on 01/14/2020 was 134, potassium 4.5, chloride 101, bica rb 29, BUN 23, creatinine 1.17, glucose 135. Liver function tests unremarkable. Lipase 125. Yester day, sodium 137, potassium 3.3, chloride 103, bicarb 29, BUN 16, creatinine 0.95, glucose 130. White count upon admission 9, hemoglobin 12, platelets 169. Yesterday, white count 11.2, hemoglobin 12, p latelets 180. Discharge Medications And Instructions: 1.Continue all prior home medications. 2.Use [id number] Dulcolax rectal suppository 1-2 times a week as needed for constipation. 3.Follow with Dr. Norton in 1-2 weeks. 4.Follow up at my office per scheduled appointment. 5.Take lactulose 15 mL by mouth 2 times a day. The prescription will be sent to his pharmacy from [facility] office. Hospital Course: This is a 59-year-old male patient admitted to the hospital with abdominal pain, na usea, vomiting, and not feeling good. Please see dictated H and P for more information. After he ca me into emergency room, he was evaluated. CAT scan of the abdomen had shown significant constipation problem involving the ascending colon, transverse colon and descending colon. GI consultation was o btained from Dr. Norton. Considering patient's multiple abdominal ventral hernia and other comorbi dities, he is at high risk from any colonoscopy type of procedure, so Dr. Norton recommended conser vative treatment and he gave some GoLYTELY and I ordered some Dulcolax rectal suppository. After all this, he had multiple bowel movements and his abdominal pain problem has resolved. He is tolerating diet very well and he was discharged to go home in stable condition today. Dr. Norton has suggest ed for him to try lactulose and he is going to look into other constipation medication. He will pres cribe it if it is not contraindicated as he has informed in prior. Details were discussed with the p atient about it. Final Diagnoses: 1.Constipation, severe. 2.Hypokalemia. 3.Anemia. 4.Rheumatoid arthritis. 5.Paroxysmal atrial fibrillation. 6.Crohn's disease. 7.Obstructive sleep apnea. 8.Gastroesophageal reflux disease. 9.Chronic steroid therapy. 10.Chronic anticoagulation therapy. 11.Abdominal wall ventral hernia. JORDAN/MODL Voice ID: [id number] Report ID: [id number]
== END 2020-01-16 11:56 | disposition home or self-care (01) | DRG 392 ==
LOC: ER 13:27 → ERHOLD 19:57 → 4TH 19:59
PROVIDERS: ADMIT Internal Medicine; ATTEND Internal Medicine
DX: K59.00 Constipation, unspecified (principal); K50.90 Crohn's disease, unspecified, without complications; E87.6 Hypokalemia; D64.9 Anemia, unspecified; M06.9 Rheumatoid arthritis, unspecified; I48.0 Paroxysmal atrial fibrillation; G47.33 Obstructive sleep apnea (adult) (pediatric); K21.9 Gastro-esophageal reflux disease without esophagitis; Z79.52 Long term (current) use of systemic steroids; Z79.01 Long term (current) use of anticoagulants; K43.9 Ventral hernia without obstruction or gangrene; Z91.040 Latex allergy status
CPT/HCPCS: 36415; 74177; 80048; 80076; 81001; 83690; 85025; 87086; 87088; 96361; 96374; 96375; 99285; J1642; J2405; J2550; J2920; J3010; J7030; J7512; Q9967

== ENCOUNTER 2020-02-17 09:15 | Inpatient (IN) | payer OTHER ==
[2020-02-17] MEDS ORDERED: GLUCAGON 1 MG/VIAL IM PRN (10:02)
[2020-02-17] MEDS ORDERED: D50W 25 GM/50 ML SYRINGE/VIAL IV PRN (10:02)
[2020-02-17] MEDS ORDERED: ONDANSETRON 4 MG/2 ML VIAL IV PRN (10:05)
[2020-02-17] MEDS ORDERED: Meropenem 1,000 MG in NA CHLORIDE 0.9% 100 ML IV SCH (11:00)
[2020-02-17] MEDS ORDERED: ENOXAPARIN 30 MG/0.3 ML SQ SCH ×2 (11:00→17:00)
[2020-02-17] MEDS: INSULIN -REGULAR HUMAN 50 UNIT/0.5 ML ML SQ SCH ×3 (11:30→20:51)
[2020-02-17] MEDS ORDERED: Meropenem 1000 MG/VIAL IV SCH (12:00)
[2020-02-17 16:37] LABS: Absolute Lymphocytes (CBC) 2.3 K/uL (0.7-4.9); Basophils % 0.4 % (0-1.3); Hematocrit 40.1 % (39.6-49.0); Lymphocytes % 13.8 % (15.3-44.8); MPV 8.8 fL (7.6-11.3); RBC Red Blood Cell Count 3.94 M/uL (4.33-5.43)
[2020-02-17 16:56] LABS: Albumin 3.4 g/dL (3.4-5.0); Bilirubin Total 0.4 mg/dL (0.2-1.0); Magnesium 1.5 mg/dL (1.8-2.4); Potassium 4.1 mmol/L (3.5-5.1); Protein, Total 6.8 g/dL (6.4-8.2)
[2020-02-17] MEDS ORDERED: POLYETHYL GLY 3350 17 GM/DOSE PO PRN (17:01)
[2020-02-17] MEDS ORDERED: HOME MED 1 EA UNK (Lactulose [Lactulose] 30 ML) PO SCH (17:15)
[2020-02-17] MEDS ORDERED: LACTULOSE 20 GM/30 ML UCUP PO PRN (17:27)
[2020-02-17] MEDS: HYDROCODONE/APAP 10/325 TAB PO PRN ×2 (17:35→23:44)
[2020-02-17] MEDS: Meropenem 1,000 MG in NA CHLORIDE 0.9% 100 ML IV SCH ×2 (17:36→19:26)
[2020-02-17 17:38] LABS: Urine White Blood Cell Casts OK
[2020-02-17 17:39] LABS: Blood Morphology Comment NOT SEEN (NOT SEEN); Platelet Estimate ADEQ
[2020-02-17] MEDS: RIVAROXABAN 20 MG TABLET PO SCH (18:00)
[2020-02-17] MEDS ORDERED: Magnesium Sulfate 2gm IVPB 2 G/50 ML BAG IV ONE (19:00)
[2020-02-17] MEDS: PROMETHAZINE INJ 25 MG/ML AMP IV PRN ×2 (19:06→23:45)
[2020-02-17] MEDS: SOTALOL HCL 80 MG TAB PO SCH (20:49)
[2020-02-17] MEDS: DULOXETINE 30 MG CAP PO SCH (20:50)
[2020-02-17] MEDS: SPIRONOLACTONE 25 MG TABLET PO SCH (20:50)
[2020-02-17] MEDS ORDERED: SOTALOL HCL 120 MG PO SCH (21:00)
[2020-02-18 04:47] LABS: Potassium 3.8 mmol/L (3.5-5.1)
[2020-02-18] MEDS: PROMETHAZINE INJ 25 MG/ML AMP IV PRN ×4 (05:43→20:11)
[2020-02-18] MEDS: HYDROCODONE/APAP 10/325 TAB PO PRN ×4 (05:44→20:11)
[2020-02-18] MEDS: INSULIN -REGULAR HUMAN 50 UNIT/0.5 ML ML SQ SCH ×4 (07:30→20:14)
[2020-02-18] MEDS: predniSONE 20 MG TAB PO SCH (08:26)
[2020-02-18] MEDS: SPIRONOLACTONE 25 MG TABLET PO SCH ×2 (08:26→20:11)
[2020-02-18] MEDS: CHLORTHALIDONE 25 MG TAB PO SCH (08:26)
[2020-02-18] MEDS: SOTALOL HCL 80 MG TAB PO SCH ×2 (08:27→20:10)
[2020-02-18] MEDS: PANTOPRAZOLE 40MG TABLET PO SCH (08:27)
[2020-02-18] MEDS: acetaZOLAMIDE 250 MG TAB PO SCH (08:28)
[2020-02-18] MEDS: Meropenem 1,000 MG in NA CHLORIDE 0.9% 100 ML IV SCH ×2 (08:28→20:14)
[2020-02-18] MEDS: DULOXETINE 30 MG CAP PO SCH ×2 (08:28→20:10)
[2020-02-18] MEDS: FOLIC ACID 1 MG TABLET PO SCH (08:28)
[2020-02-18] MEDS ORDERED: POTASSIUM CL SA 10 MEQ TAB PO ONE (09:00)
[2020-02-18] MEDS ORDERED: HOME MED 1 EA UNK (Esomeprazole Mag Trihydrate [Nexium] 40 MG) PO SCH (09:00)
--- NOTE | 2020-02-18 13:53 | HP ---
Date of Admission: 02/18/2020 Chief Complaint: Urinary tract infection. History Of Present Illness: This is a 59-year-old male patient who recently had some symptoms of urinary tract infection with burning sensation on urination and he had some Levaquin at home. So, he took 1 week of Levaquin and he felt like it was helping him. After he finished Levaquin within 2-3 days, he started to have burning sensation on urination and in last day or so, having some right posterior flank pain. Occasional nausea from time to time. No fever , but he says he does not have tendency to run fever at all even when he has bad infection. No hematuria. He has history of urethral stricture and gets catheterization of bladder 2 times a day, which is done by his and has history of recurrent urinary tract infection. He called me this week on Wednesday and we talked about urinalysis and urine culture was ordered. Yesterday, I was notified by [facility] lab that his urine culture came back positive showing E coli and it is ESBL. So, the patient was contacted and arrangements were made for him to be admitted to the hospital directly for this problem. Medications: List reviewed. Review of Systems: Genitourinary: As mentioned above. GI: As mentioned above. All other systems reviewed and negative. Allergies: TO DEMEROL, REMICADE, AND LATEX. Social History: Negative for smoking and alcohol use. Family History: Not pertinent. Past Surgical History: Surgery for lysis of adhesions, Port-A-Cath placement and lysis of adhesions with segmental resection of small bowel due to small- bowel obstruction without perforation. Also had abdominal wall abscess and surgery for that as well as surgery for ventral abdominal wall hernia and knee surgery. Past Medical History: Significant for paroxysmal atrial fibrillation, chronic anticoagulation therapy, sleep apnea and unable to use CPAP machine due to significant claustrophobia problem, hypertension, Crohn disease, chronic steroid therapy, chronic anticoagulation therapy, rheumatoid arthritis, ventral hernia, morbid obesity, urethral stricture requiring daily catheterization of his bladder usually 2 times a day and recurrent urinary tract infection. Physical Examination: Vital Signs: Temperature 97.6, pulse 92, respiratory rate 17, blood pressure 112/67, oxygen saturation 96%. Height 6 feet 2 inches, weight 299 pounds. General: Awake, alert, oriented, not in distress. HEENT: Head atraumatic, normocephalic. Conjunctivae nonerythematous. Sclerae white. Mouth, no thrush or edema noted. Ears/Nose, no mass, lesion, discharge noted. Neck: Supple. No JVD, lymph nodes, bruit, thyromegaly noted. Lungs: Bilateral good equal air entry. Clear to auscultation. No rhonchi. No rales. Heart: Normal heart sounds, no murmur or gallop. Abdomen: Abdomen has multiple anterior abdominal wall ventral hernia. No evidence of any bowel obstruction. No guarding, rigidity, tenderness. Bowel sounds normoactive. Extremities: No leg edema. No calf tenderness. Skin: Patient has some area of pink colored rash in his groin and lower anterior abdominal wall skin fold consistent with fungal infection of the skin. Lymphatics: No lymph node enlargement in neck, supraclavicular, infraclavicular region. Neuro: No focal neurological deficit. Chest: Unremarkable. External Genitalia: Deferred. Rectal: Deferred. Laboratory Data: White count 16.4, hemoglobin 13.1, platelets 293. Yesterday, sodium 136, potassium 4.1, chloride 101, bicarb 28, BUN 39, creatinine 1.20, glucose 177, magnesium 1.5. Liver function tests unremarkable. This morning, magnesium 2. Sodium 135, potassium 3.8, chloride 99, bicarb 31, BUN 35, creatinine 0.95, glucose 107. Urinalysis and urine culture from this week outpatient reviewed. Urine culture is growing E coli and it is ESBL, and this was done on Wednesday of this week. His urinalysis from 02/15/2020 showed 1+ leukocyte esterase, wbc 10 to 20, bacteria more than 50. Impression: 1. Acute pyelonephritis, organism Escherichia coli, extended-spectrum beta lactamase. 2. Anemia, unspecified. 3. Hypomagnesemia. 4. Volume depletion. 5. Paroxysmal atrial fibrillation. 6. Chronic anticoagulation therapy. 7. Hypertension. 8. Crohn disease. 9. Chronic steroid therapy. 10. Chronic anticoagulation therapy. 11. Rheumatoid arthritis. 12. Ventral hernia of abdominal wall. 13. Urethral stricture. Plan: Admit patient to hospital for further evaluation and management of this problem. Patient is appropriate for inpatient and expected to spend 2 midnights in hospital. His home medications will be continued including his anticoagulation therapy. IV meropenem was started. We will continue that. Tomorrow, we will consult social service to help make arrangements for home IV antibiotic therapy using meropenem at current dose and I will see him tomorrow for followup. Details and plan of treatment discussed with the patient. We will go ahead and give 1 dose of IV Diflucan and then continue topical antifungal medication for his fungal infection of groin and anterior abdominal wall skin fold. Details and plan of treatment discussed with the patient. JORDAN/KENDALL Voice ID: [id number] MTDD
[2020-02-18] MEDS: RIVAROXABAN 20 MG TABLET PO SCH (16:22)
[2020-02-18] MEDS: FLUCONAZOLE 100mg IVPB 100 MG/50 ML BAG IV SCH (18:15)
[2020-02-19] MEDS: HYDROCODONE/APAP 10/325 TAB PO PRN ×4 (04:57→20:27)
[2020-02-19] MEDS: PROMETHAZINE INJ 25 MG/ML AMP IV PRN ×4 (04:57→20:28)
[2020-02-19 05:21] LABS: Absolute Lymphocytes (CBC) 3.4 K/uL (0.7-4.9); Basophils % 0.5 % (0-1.3); Hematocrit 37.4 % (39.6-49.0); Lymphocytes % 20.4 % (15.3-44.8); MPV 8.5 fL (7.6-11.3); RBC Red Blood Cell Count 3.68 M/uL (4.33-5.43)
[2020-02-19 05:35] LABS: Potassium 3.8 mmol/L (3.5-5.1)
[2020-02-19] MEDS: INSULIN -REGULAR HUMAN 50 UNIT/0.5 ML ML SQ SCH ×4 (07:30→20:43)
[2020-02-19] MEDS ORDERED: POTASSIUM CL SA 10 MEQ TAB PO ONE (09:00)
--- NOTE | 2020-02-19 09:06 | RAD REPORT ---
EXAM DESCRIPTION: US - Renal Ultrasound-Complete - 02/19/2020 8:37 am CLINICAL HISTORY: acute pyelonephritis COMPARISON: Abdomen Pelvis W Contrast dated 01/14/2020; Urinary Bladder dated 02/19/2020None. FINDINGS: The right kidney measures 13.6 x 7.9 x 5.4 cm. The left kidney is very small and atrophic . This matches the CT study. Right renal cortical thickness is within range of normal. There is an in crease in cortical echogenicity that can indicate medical renal disease. Small exophytic cyst mid rig ht kidney has not changed from December. No hydronephrosis present in the right kidney. No right leon l solid mass lesion identified. No solid mass of the left kidney identifiable. Large cystic area adjacent to the inferior pole left k idney is believed to be part of the enlarged urinary bladder. No cystic mass was present near the lef t kidney on the December study. Urinary bladder is separately detailed. IMPRESSION: No hydronephrosis or suspicious mass of the right kidney. Atrophic left kidney without hydronephrosis. Urinary bladder is separately detailed.
[2020-02-19] MEDS: SPIRONOLACTONE 25 MG TABLET PO SCH ×2 (09:08→20:32)
[2020-02-19] MEDS: FOLIC ACID 1 MG TABLET PO SCH (09:09)
[2020-02-19] MEDS: SOTALOL HCL 80 MG TAB PO SCH ×2 (09:09→20:33)
[2020-02-19] MEDS: PANTOPRAZOLE 40MG TABLET PO SCH (09:09)
[2020-02-19] MEDS: acetaZOLAMIDE 250 MG TAB PO SCH (09:09)
[2020-02-19] MEDS: CHLORTHALIDONE 25 MG TAB PO SCH (09:10)
[2020-02-19] MEDS: predniSONE 20 MG TAB PO SCH (09:10)
[2020-02-19] MEDS: DULOXETINE 30 MG CAP PO SCH ×2 (09:10→20:42)
[2020-02-19] MEDS: Meropenem 1,000 MG in NA CHLORIDE 0.9% 100 ML IV SCH ×2 (09:10→20:34)
--- NOTE | 2020-02-19 09:14 | RAD REPORT ---
EXAM DESCRIPTION: US - Urinary Bladder - 02/19/2020 8:37 am CLINICAL HISTORY: acute pyelonephritis COMPARISON: URINARY BLADDER dated 01/05/2013 FINDINGS: No urinary bladder wall thickening or mass. No stone or other intraluminal filling defect. IMPRESSION: No bladder abnormality seen.
[2020-02-19] MEDS: RIVAROXABAN 20 MG TABLET PO SCH (16:50)
[2020-02-19] MEDS: FLUCONAZOLE 100mg IVPB 100 MG/50 ML BAG IV SCH (17:26)
--- NOTE | 2020-02-19 21:33 | PN ---
Date of Progress Note: 02/19/2020 Subjective: Patient was seen this morning for followup, lying in bed, not in distress. His right po sterior flank pain is better. No other new complaints or problems reported. Objective: Vital Signs: Reviewed. HEENT: Unremarkable. Lungs: Clear to auscultation. Heart: Sounds normal. Abdomen: Soft. Bowel sounds normal. No guarding, rigidity, tenderness, or distention. Extremities: No leg edema. Laboratory Data: White count 16.6 today; when he came in, it was 16.4; hemoglobin is 12.2; platelets 277. Sodium 137, potassium 3.8, chloride 101, bicarb 31, BUN 22, creatinine 0.88, glucose 111. Impression: 1.Acute pyelonephritis. 2.Paroxysmal atrial fibrillation. 3.Chronic steroid therapy. 4.Anemia, unspecified. Plan: We will go ahead and continue current medications. Continue meropenem. White count remained unchanged from the time of admission and I did order a renal and bladder ultrasound, results reviewed . There is no concerning finding on the ultrasound. We will go ahead and repeat blood work tomorrow and possible discharge to go home tomorrow depending on patient's condition and blood work results. JORDAN/MODL Voice ID: [id number] Report ID: [id number]
[2020-02-20] MEDS: HYDROCODONE/APAP 10/325 TAB PO PRN ×5 (01:44→18:44)
[2020-02-20] MEDS: PROMETHAZINE INJ 25 MG/ML AMP IV PRN ×5 (01:45→18:46)
[2020-02-20 04:35] LABS: Absolute Lymphocytes (CBC) 3.1 K/uL (0.7-4.9); Basophils % 0.5 % (0-1.3); Hematocrit 37.1 % (39.6-49.0); Lymphocytes % 19.8 % (15.3-44.8); MPV 8.8 fL (7.6-11.3)
[2020-02-20 04:55] LABS: Potassium 3.8 mmol/L (3.5-5.1)
[2020-02-20] MEDS: INSULIN -REGULAR HUMAN 50 UNIT/0.5 ML ML SQ SCH ×4 (07:30→21:00)
[2020-02-20] MEDS ORDERED: POTASSIUM CL SA 10 MEQ TAB PO ONE (09:00)
[2020-02-20] MEDS: Meropenem 1,000 MG in NA CHLORIDE 0.9% 100 ML IV SCH ×2 (09:16→21:48)
[2020-02-20] MEDS: DULOXETINE 30 MG CAP PO SCH ×2 (09:17→21:49)
[2020-02-20] MEDS: predniSONE 20 MG TAB PO SCH (09:17)
[2020-02-20] MEDS: FOLIC ACID 1 MG TABLET PO SCH (09:17)
[2020-02-20] MEDS: acetaZOLAMIDE 250 MG TAB PO SCH (09:17)
[2020-02-20] MEDS: SOTALOL HCL 80 MG TAB PO SCH ×2 (09:17→21:49)
[2020-02-20] MEDS: SPIRONOLACTONE 25 MG TABLET PO SCH ×2 (09:18→21:48)
[2020-02-20] MEDS: PANTOPRAZOLE 40MG TABLET PO SCH (09:18)
[2020-02-20] MEDS: CHLORTHALIDONE 25 MG TAB PO SCH (09:19)
[2020-02-20] MEDS ORDERED: FLEET ENEMA ADULT PR ONE (11:23)
[2020-02-20] MEDS: RIVAROXABAN 20 MG TABLET PO SCH (16:35)
[2020-02-20 17:51] VITALS: BMI 38.4
--- NOTE | 2020-02-20 19:49 | PN ---
Date of Progress Note: 02/20/2020 Subjective: Patient was seen this morning for followup. No new complaints or problems reported by patient except having some abdominal discomfort with his constipation problem, which is a chronic problem. His flank pain is better. Objective: Vital Signs: Reviewed. HEENT: Unremarkable. Lungs: Clear to auscultation. Heart: Sounds normal. Abdomen: Soft. Bowel sounds normal. No guarding, rigidity, tenderness, distention. Extremities: No leg edema. Laboratory Data: White count 15.4, hemoglobin 12. Sodium 135, potassium 3.8, chloride 99, bicarb 34, BUN 22, creatinine 0.90, glucose 134. Impression: 1. Acute pyelonephritis, organism Escherichia coli, extended-spectrum beta lactamase. 2. Chronic constipation. Plan: We will go ahead and continue current IV antibiotics. Fleet enema x1 was ordered today. We will repeat another Fleet enema dose tomorrow morning. Social Service is working on getting IV antibiotic arranged for home. Once that is arranged, hopefully we can discharge him, if not today may be tomorrow. JORDAN/MODL Voice ID: [id number] Report ID: [id number] VERONICA
[2020-02-21] MEDS: HYDROCODONE/APAP 10/325 TAB PO PRN ×2 (00:07→11:02)
[2020-02-21] MEDS: PROMETHAZINE INJ 25 MG/ML AMP IV PRN ×3 (00:07→12:57)
[2020-02-21] MEDS ORDERED: MEPERIDINE HCL 25 MG/0.5 ML IV PRN (02:32)
[2020-02-21] MEDS ORDERED: PROMETHAZINE INJ 25 MG/ML AMP IV ONE (02:39)
[2020-02-21] MEDS: FENTANYL CITR 100 MCG/2 ML IV PRN ×2 (02:47→08:06)
[2020-02-21] MEDS: INSULIN -REGULAR HUMAN 50 UNIT/0.5 ML ML SQ SCH ×2 (07:30→11:30)
[2020-02-21] MEDS ORDERED: FLEET ENEMA ADULT PR ONE (07:33)
[2020-02-21] MEDS: SOTALOL HCL 80 MG TAB PO SCH (08:11)
[2020-02-21] MEDS: Meropenem 1,000 MG in NA CHLORIDE 0.9% 100 ML IV SCH (08:11)
[2020-02-21] MEDS: FOLIC ACID 1 MG TABLET PO SCH (08:12)
[2020-02-21] MEDS: PANTOPRAZOLE 40MG TABLET PO SCH (08:12)
[2020-02-21] MEDS: DULOXETINE 30 MG CAP PO SCH (08:12)
[2020-02-21] MEDS: SPIRONOLACTONE 25 MG TABLET PO SCH (08:12)
[2020-02-21] MEDS: acetaZOLAMIDE 250 MG TAB PO SCH (08:13)
[2020-02-21] MEDS: predniSONE 20 MG TAB PO SCH (08:13)
[2020-02-21] MEDS: CHLORTHALIDONE 25 MG TAB PO SCH (08:13)
[2020-02-21 09:23] VITALS: O2SAT 94
[2020-02-21 13:13] VITALS: BP 98/65; TEMP 97.7
--- NOTE | 2020-02-21 19:32 | DS ---
Date of Discharge: 02/21/2020 Disposition: Discharged to go home. Physical Examination: HEENT: Unremarkable. Lungs: Clear to auscultation. Heart: Sounds normal. Abdomen: Soft. Bowel sounds normal. No guarding, rigidity, tenderness, or distention. Extremities: No leg edema. Laboratory Data: Upon admission, white count 16.4, hemoglobin 13.1, platelets 293. Yesterday, white count 15.4, hemoglobin 12, platelets 315. Yesterday, sodium 135, potassium 3.8, chloride 99, bicarb 34, BUN 22, creatinine 0.90, glucose 134. Hospital Course: A 59-year-old male patient was admitted to the hospital with urinary tract infection. Outpatient urine culture was done, which grew E coli and it was ESBL. Patient was contacted, decision was made to admit him to the hospital. Patient started to have right posterior flank pain about a day prior to this hospital admission. After he was admitted to the hospital, his home medications were continued and he was started on IV meropenem. He tolerated antibiotics very well without any side effects. He has a Port-A-Cath, which was accessed and antibiotic therapy was provided through that. Social Service was consulted for home IV antibiotic arrangements and antibiotic arrangements were completed today. Patient has a history of chronic constipation and at home he manages his constipation with help of stool softener and laxative and he started to have same problem during this hospitalization yesterday. In associated with constipation, he had some abdominal pain, so Fleet Enema x1 was ordered yesterday, which resulted in good result and second dose was given today. Once antibiotic arrangements were completed, he was discharged to go home in stable condition. At home, his will assist him with Fleet Enema once a day and tap water enema once a day and she will do that for the next few days. Final Diagnoses: 1. Acute pyelonephritis, organism Escherichia coli, extended-spectrum beta- lactamase. 2. Anemia, unspecified. 3. Hypomagnesemia. 4. Volume depletion. 5. Paroxysmal atrial fibrillation. 6. Chronic anticoagulation therapy. 7. Hypertension. 8. Crohn disease. 9. Chronic steroid therapy. 10. Rheumatoid arthritis. 11. Ventral hernia, abdominal wall. 12. Urethral stricture. 13. Constipation. Discharge Medications And Instructions: 1. Continue all prior home medications. 2. Meropenem 1000 mg IV every 12 hours for 8 days. 3. Follow up in my office next week. 4. CBC and Chem-7 to be done on Wednesday, which is 02/23/2020. JORDAN/MODL Voice ID: [id number] Report ID: [id number] MTDD
== END 2020-02-21 14:10 | disposition home or self-care (01) | DRG 690 ==
LOC: 2ND 09:15
PROVIDERS: ADMIT Internal Medicine; ATTEND Internal Medicine
DX: N10 Acute pyelonephritis (principal); Z16.12 Extended spectrum beta lactamase (ESBL) resistance; K50.90 Crohn's disease, unspecified, without complications; B96.20 Unspecified Escherichia coli [E. coli] as the cause of diseases classified elsewhere; E83.42 Hypomagnesemia; D64.9 Anemia, unspecified; I48.0 Paroxysmal atrial fibrillation; E86.9 Volume depletion, unspecified; Z79.01 Long term (current) use of anticoagulants; I10 Essential (primary) hypertension; Z79.52 Long term (current) use of systemic steroids; N35.919 Unspecified urethral stricture, male, unspecified site; M06.9 Rheumatoid arthritis, unspecified; K43.9 Ventral hernia without obstruction or gangrene; K59.09 Other constipation; Z88.5 Allergy status to narcotic agent; Z88.8 Allergy status to other drugs, medicaments and biological substances; Z91.040 Latex allergy status
CPT/HCPCS: 36415; 76770; 76857; 80048; 80053; 82947; 83036; 83735; 85025; J1450; J2550; J3010; J3475; J7512

== ENCOUNTER 2020-04-04 13:11 | Inpatient (IN) | payer OTHER ==
--- OUTSIDE RECORDS SUMMARY | 2020-04-04 13:13 | XMS REPORT | Clinical Summary ---
:1960 Author Organization [facility] Address [address] [place] [address] Care Team Providers Name Role Phone Asked, Given Primary Care Provider Unavailable Allergies Active Allergy Reactions Severity Noted Date Comments Meperidine GI Intolerance High 03/19/2017 "severe vomit ing" Latex Anaphylaxis High 03/19/2017 Infliximab Anaphylaxis High 03/19/2017 Medications Medication Sig Dispensed Refills Start Date End Date Status folic acid (FOLVITE) Take 1 mg by 0 Active 1 MG tablet mouth daily. multivitamin capsule Take 1 capsule 0 Active by mouth daily. cyanocobalamin, Inject 1,000 0 A ctive vitamin B-12, 1,000 mcg as directed mcg/mL kit every 30 (thirty) days. anakinra (KINERET) Inject 100 mg 0 Active 100 mg/0.67 mL under the skin syringe daily. methotrexate, PF, 20 Inject 20 mg 0 Active mg/0.4 mL under the skin auto-injector every 7 days. rivaroxaban (XARELTO) Take 20 mg by 0 Active 20 mg tablet mouth daily. sotalol (BETAPACE) Take 120 mg by 0 Active 120 MG tablet mouth 2 (two) times a day. chlorthalidone Take 25 mg by 0 A ctive (HYGROTEN) 25 MG mouth daily. tablet spironolactone Take 50 mg by 0 A ctive (ALDACTONE) 50 MG mouth 2 (two) tablet times a day. acetaZOLAMIDE Take 250 mg by 0 A ctive (DIAMOX) 250 MG mouth daily. tablet DULoxetine (CYMBALTA) Take 120 mg by 0 Active 60 MG capsule mouth daily. pantoprazole Take 40 mg by 0 Act jostin (PROTONIX) 40 MG EC mouth daily. tablet sucralfate (CARAFATE) Take 1 tablet 90 tablet 11 02/14/2019 1 gram tablet (1 g total) by mouth 3 (three) times a day before meals. predniSONE Take 4 tablets 120 tablet 2 02/14/2019 05/15/2019 E xpired (DELTASONE) 5 mg (20 mg total) tablet by mouth daily for 90 days. Active Problems Problem Noted Date PAF (paroxysmal atrial fibrillation) 02/13/2019 Bowel perforation 10/05/2018 Obstructive sleep apnea 03/10/2018 Ventral incisional hernia without obstruction or gangr aliza 03/10/2018 History of primary testicular cancer 03/10/2018 Gastroesophageal reflux disease without esophagitis History of atrial fibrillation 03/10/2018 Status post ablation of atrial fibrillation 03/10/2018 Essential hypertension 03/10/2018 Personal history of pulmonary embolism 03/10/2018 History of deep vein thrombosis 03/10/2018 Status post small bowel resection 03/10/2018 Status post repair of recurrent ventral hernia 018 Rheumatoid arthritis 03/10/2018 Status post total knee replacement, left 03/10/2018 Urethral stricture 05/26/2017 Overview: on tamsulosin Acute cystitis without hematuria 05/26/2017 Morbid obesity with BMI of 45.0-49.9, adult 04/01/2017 S/P laparoscopic sleeve gastrectomy 03/31/2017 Encounters Date Type Specialty Care Team Description 09/26/2019 Documentation Weight Management Geraldine Gandara RN [facility] Follow Up Call after 04/04/2019 Family History Medical History Relation Name Comments [...] Signs Not on file Plan of Treatment Health Maintenance Due Date Last Done Comments COLONOSCOPY SCREENING 2011 SHINGLES VACCINES (#1) 2011 INFLUENZA VACCINE 06/22/2020 Results Not on fileafter 04/04/2019 Insurance Payer Benefit Plan / Subscriber ID Effective Dates Phone Addre ss Type Group MEDICARE MEDICARE PART A xxxxxxxxxxx 2015-Present [place], [place] Medicare AND B CIGNA CIGNA OPEN xxxxxxxxxxx 2018-Present HMO ACCESS/NETWORK Advance Directives For more information, please contact: [phone] Type Date Recorded 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
--- OUTSIDE RECORDS SUMMARY | 2020-04-04 13:13 | XMS REPORT | Clinical Summary ---
:1960 Author Organization [facility] Address [address] [place] [address] Care Team Providers Name Role Phone Unavailable [...] Not on file Results Not on fileafter 04/04/2019
--- OUTSIDE RECORDS SUMMARY | 2020-04-04 13:14 | XMS REPORT ---
:1960 Author Organization [employer] Care Team Providers Name Role Phone Edi Weinberg Provider Role Unavailable Allergies, Adverse Reactions, Alerts Substance Reaction Event Type Simponi recurrent infections Drug Allergy Latex Gloves Info Not Available Drug Allergy Remicade chest pain Drug Allergy Demerol vomiting Drug Allergy Problems Problem Type Condition Code Onset Dates Condition Statu s Problem Generalized osteoarthrosis, M15.9 Active involving multiple sites Problem Essential hypertension I10 Activ e Problem Depressive disorder, not elsewhere F32.9 Active classified Problem Other specified disorders of bone M85.832 Active density and structure, left forearm Assessment Other specified disorders of bone M85.831 Active density and structure, right forearm Problem Hematuria, unspecified R31.9 Activ e Assessment Other specified disorders of bone M85.832 Active density and structure, left forearm Assessment snf (current) use of systemic Z79.52 Active steroids Problem Other specified disorders of bone M85.831 Active density and structure, right forearm Problem Encounter for long-term (current) Z79.899 Active use of other medications Problem Rheumatoid arthritis of multiple M05.79 Active sites without organ or system involvement with positive rheumatoid factor Problem snf (current) use of systemic Z79.52 Active steroids 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 Z79.891 Active analgesic Assessment Rheumatoid arthritis of multiple M05.79 Active sites without organ or system involvement with positive rheumatoid factor Assessment Generalized osteoarthrosis, M15.9 Active involving multiple sites Assessment Encounter for long-term (current) Z79.899 Active use of other medications Problem Generalized osteoarthrosis, 715.09 Active involving multiple sites Problem Cellulitis and abscess of leg, 682.6 Active except foot Problem Rheumatoid arthritis 714.0 Active Problem 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 Assessment Essential hypertension I10 Activ e Problem Unspecified essential hypertension 401.9 Active Problem Other pulmonary embolism and I26.99 Active infarction Medications Medication Code Code Instructions Start End Status Dosage System Date Date Esomeprazole [facility] [address]-20 Active not Sodium defined Anakinra NDC [address]-86 100 MG/0.67ML Active as Subcutaneous directed once a day Spironolactone ND 75038565567 50 MG Orally Active 1 tablet Twice a day Diamox Sequels [facility] 95625212075 250 mg Orally Active 1 capsule Once a day Lorazepam ND 53940319955 1 MG Orally once Active 1 tablet at bed time as needed Methotrexate ND 12902927455 25 MG/ML SQ once Active 1 Sodium a week PredniSONE ND 92692341583 10 MG Orally Active 1 ta blet Once a day Cimzia Prefilled [facility] 75075161217 2 X 200 MG/ML Dec 07Jun Activ e 1 ml Subcutaneous 2019, every other week 2019 Sotalol HCl [facility] 32999526910 120 MG Orally Active 1 tablet every 12 hrs Needle (Disp) [facility] 79525627986 27G X 3/8 Active as subcutaneously directed once a week with Methotrexate Vitamin D [facility] 99283664810 2000 UNIT Orally Active 1 tablet Once a day Iron [facility] 57698789087 325 (65 Fe) MG Active 1 tab let Orally Once a day Folic Acid [facility] 41902730785 1 MG Orally Once Active 1 tablet a day Duloxetine HCl [facility] 05664159781 60 MG Orally Active 1 capsule Twice a day Syringe [facility] 57048829187 1 ML Jul 11, Active as (Disposable) subcutaneously 2014 dire cted once a week with Methotrexate Novuvia [facility] 93841260015 100 MG Orally Active 1 tabl et Once a day B-12 Compliance [facility] 66721465495 1000 MCG/ML Active 1 ml Injection Injection Vitamin C [facility] 98821021770 500 MG Orally Active not defined Metformin HCl [facility] 65619682310 1000 MG Orally Active 1 tablet twice a day with a meal Chlorthalidone [facility] 51589393820 25 MG Orally Active 1 tablet Once a day in the morning Xarelto [facility] 29201128221 20 MG Orally Active not Once a day defined Centrum Silver [facility] 51266234633 Orally Active not defined PredniSONE [facility] 54132583268 5 MG Orally Once Active 1 tablet a day Flomax [facility] [address]-79 0.4 MG Orally Active 1 ca psule Once a day 30 minutes after the same meal each day Alendronate [facility] 23978450844 70 MG Orally Active 1 t ablet Sodium once a week 30 minutes before the first food, beverage or medicine of the day with plain water Omeprazole [facility] 71975540423 20 MG Orally Sept Active 1 ca psule Once a day 2016 Carafate [facility] [address]-64 Active not defined Protonix [facility] 19356881008 40 MG Orally Active 1 tabl et Once a day Calcium NDC 0 200 MG Orally Active not defined Results No Known Results Summary Purpose [employer] Submission
--- OUTSIDE RECORDS SUMMARY | 2020-04-04 13:14 | XMS REPORT ---
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 Z79.52 Active steroids Problem halfway (current) use of opiate Z79.891 Active analgesic Problem Hematuria, unspecified R31.9 Activ e Problem Essential hypertension I10 Activ e Problem Depressive disorder, not elsewhere F32.9 Active classified Problem Encounter for long-term (current) Z79.899 Active use of other medications Problem Rheumatoid arthritis of multiple M05.79 Active sites without organ or system involvement with positive rheumatoid factor Problem Rheumatoid arthritis 714.0 Active Problem Unspecified essential hypertension 401.9 Active Assessment Generalized osteoarthrosis, M15.9 Active involving multiple sites Problem Generalized osteoarthrosis, 715.09 Active involving multiple sites Problem Cellulitis and abscess of leg, 682.6 Active except foot Medications Medication Code Code Instructions Start End Status Dosage System Date Date Duloxetine HCl [facility] 60660952876 60 MG Orally Active 1 capsule Twice a day Results No Known Results Summary Purpose eClinicalWorks Submission
--- OUTSIDE RECORDS SUMMARY | 2020-04-04 13:14 | XMS REPORT | Continuity of Care Document ---
:1960 Author Organization [employer] Care Team Providers Name Role Phone [facility] Unavailable Un available Problems Problem Status Onset Classification Date Comments Sourc e Date Reported Cellulitis and Active Problem 03/08/2020 [facility] abscess of leg, of [place] except foot Other pulmonary Active Problem 03/08/2020 [facility] embolism and of [place] infarction Aseptic necrosis Active Problem 03/08/2020 [facility] of head and neck of [place] of femur Rheumatoid Active Problem 03/08/[address] arthritis of [place] Unspecified Active Problem 03/08/[address] [facility] essential of [place] hypertension Generalized Active Problem 03/08/[address] [facility] osteoarthrosis, of [place] involving multiple sites manager intermediate Active Problem 03/08/2020 [facility] (current) use of of [place] opiate analgesic Encounter for Active Problem 03/08/2020 [facility] long-term of [place] (current) use of other medications manager intermediate Active Problem 03/08/2020 [facility] (current) use of of [place] systemic steroids Depressive Active Problem 03/08/[address] disorder, not of [place] elsewhere classified Generalized Active Problem 03/08/2020 [facility] osteoarthrosis, of [place] involving multiple sites Rheumatoid Active Problem 03/08/[address] arthritis of of [place] multiple sites without organ or system involvement with positive rheumatoid factor Essential Active Problem 03/08/2020 [facility] hypertension of [place] Hematuria, Active Problem 03/08/[address] unspecified of [place] Other specified Active Problem 03/08/2020 [facility] disorders of bone of [place] density and structure, left forearm Other specified Active Problem 03/08/2020 [facility] disorders of bone of [place] density and structure, right forearm Acute Active Diagnosis 12/01/2019 [facility] pyelonephritis of [place] Urinary tract Active Diagnosis 12/01/2019 [facility] infection, site of H ou not specified Medications Medication Details Route Status Patient Ordering Order Source Instructions Provider Date Cimzia Starter 2 ml Subcutaneous Active 6 X 200 MG/ML Vo 01/10/ Rheum Kit Subcutaneous 2019 Ctr of weeks 0 2 and 4 [place] Cimzia Prefilled 1 ml Subcutaneous Active 2 X 200 MG/ML [place] 11/22/ Rheum Subcutaneous 2019 Ctr of every other [place] week PredniSONE 1 tablet Orally Active 5 MG Orally Vo 08/29/ Rheum three times a 2018 Ctr of day [place] Folic Acid 1 tablet Orally Active 1 MG Orally Vo 07/06/ Rheum Once a day 2018 Ctr of [place] Omeprazole 1 capsule Orally Active 20 MG Orally [place] 07/29/ Rheum Once a day 2016 Ctr of [place] Syringe as subcutaneously Active 1 ML [place] 07/11/ Rheum (Disposable) directed subcutaneously 2014 Ctr of once a week [place] with Methotrexate Methotrexate 1 SQ Active 25 MG/ML SQ [place] [facility] Sodium once a week Ctr of [place] Needle (Disp) as subcutaneously Active 27G X 3/8 Vo R heum directed subcutaneously Ctr of once a week [place] with Methotrexate Duloxetine HCl 1 capsule Orally Active 60 MG Orally Vo Rh eum Twice a day Ctr of [place] Sotalol HCl 1 tablet Orally Active 120 MG Orally [place] [facility] every 12 hrs Ctr of [place] Centrum Silver not Orally Active Orally [place] Rheum defined Ctr of [place] Flomax 1 capsule Orally Active 0.4 MG Orally [place] [facility] 30 minutes Once a day Ctr of after the [place] same meal each day Chlorthalidone 1 tablet Orally Active 25 MG Orally [place] Rhe um in the Once a day Ctr of morning [place] Calcium not Orally Active 200 MG Orally [place] Rheum defined Ctr of [place] Vitamin D 1 tablet Orally Active 2000 UNIT [place] [facility] Orally Once a Ctr of day [place] Spironolactone 1 tablet Orally Active 50 MG Orally [place] Rhe um Twice a day Ctr of [place] Diamox Sequels 1 capsule Orally Active 250 mg Orally [place] R heum Once a day Ctr of [place] Metformin HCl 1 tablet Orally Active 1000 MG Orally [place] Rh eum with a twice a day Ctr of meal [place] Lorazepam 1 tablet Orally Active 1 MG Orally [place] Rhe[facility] as needed once at bed Ctr of time [place] Iron 1 tablet Orally Active 325 (65 Fe) MG [place] [facility]um Orally Once a Ctr of day [place] Protonix 1 tablet Orally Active 40 MG Orally [place] [facility] Once a day Ctr of [place] Carafate not NA Active [place] [facility] defined Ctr of [place] Vitamin C not Orally Active 500 MG Orally [place] Rheum defined Ctr of [place] PredniSONE 1 tablet Orally Active 5 MG Orally [place] Rheum Once a day Ctr of [place] Xarelto not Orally Active 20 MG Orally [place] Rheum defined Once a day Ctr of [place] Anakinra as Subcutaneous Active 100 MG/0.67ML [place] Rheu m directed Subcutaneous Ctr of once a day [place] PredniSONE 1 tablet Orally Active 10 MG Orally [place] [facility]um Once a day Ctr of [place] B-12 Compliance 1 ml Injection Active 1000 MCG/ML [place] Rh eum Injection Injection Ctr of [place] Esomeprazole not NA Active [place] [facility] Sodium defined Ctr of [place] Januvia 1 tablet Orally Active 100 MG Orally [place] [facility] Once a day [facility] of [place] Folic Acid 1 tablet Orally Active 1 MG Orally [place] [facility] Once a day Ctr of [place] Needle (Disp) as subcutaneously Active 27G X 3/8 [place] R heum directed subcutaneously Ctr of once a week [place] with Methotrexate Duloxetine HCl 1 capsule Orally Active 60 MG Orally [place] Rh eum Twice a day Ctr of [place] Alendronate 1 tablet Orally Active 70 MG Orally [place] [facility]um Sodium 30 minutes once a week Ctr of before the [place] first food, beverage or medicine of the day with plain water Allergies, Adverse Reactions, Alerts Substance Category Reaction Severity Reaction Status Date Comments S ource type Reported Simponi Adverse recurrent Adverse Active Rheu m Reaction infections Reaction 0 Ctr of [place] Latex Adverse Info Not Adverse Active Rheum Gloves Reaction Available Reaction 0 [facility]tr of [place] Remicade Adverse chest pain Adverse Active Rh eum Reaction Reaction 0 [facility]tr of [place] Demerol Adverse vomiting Adverse Active Rheum Reaction Reaction 0 [facility]tr of [place] Immunizations No Data Provided for This Section Results No Data Provided for This Section Pathology Reports No Data Provided for This Section Diagnostic Reports No Data Provided for This Section Consultation Notes No Data Provided for This Section Discharge Summaries No Data Provided for This Section History and Physicals No Data Provided for This Section Vital Signs Vital Sign Value Date Comments Source Weight 364 10/05/2019 [facility] Height 70 10/05/2019 [facility] Heart Rate 91 10/05/2019 [facility] Diastolic (mm Hg) 41 10/05/2019 [facility] of [place] Systolic (mm Hg) 72 10/05/2019 [facility] o f [place] Encounters No Data Provided for This Section Procedures No Data Provided for This Section Assessment and Plan No Data Provided for This Section Plan of Care No Data Provided for This Section Social History No Data Provided for This Section Family History No Data Provided for This Section Advance Directives No Data Provided for This Section Functional Status No Data Provided for This Section
--- OUTSIDE RECORDS SUMMARY | 2020-04-04 13:14 | XMS REPORT ---
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 Problem Rheumatoid arthritis 714.0 Active Problem Unspecified essential hypertension 401.9 Active Problem Generalized osteoarthrosis, 715.09 Active involving multiple sites Problem assisted (current) use of opiate Z79.891 Active analgesic Problem Encounter for long-term (current) Z79.899 Active use of other medications Problem assisted (current) use of systemic Z79.52 Active steroids Problem Depressive disorder, not elsewhere F32.9 Active classified Problem Generalized osteoarthrosis, M15.9 Active involving multiple sites Problem Rheumatoid arthritis of multiple M05.79 Active sites without organ or system involvement with positive rheumatoid factor Problem Essential hypertension I10 Activ e Medications No Known Medications Results No Known Results Summary Purpose [employer] Submission
--- OUTSIDE RECORDS SUMMARY | 2020-04-04 13:14 | XMS REPORT ---
[...] pulmonary embolism and I26.99 Active infarction Problem Rheumatoid arthritis 714.0 Active Problem Unspecified essential hypertension 401.9 Active Problem Generalized osteoarthrosis, 715.09 Active involving multiple sites Problem Cellulitis and abscess of leg, 682.6 Active except foot Problem intermediate manager (current) use of systemic Z79.52 Active steroids Problem intermediate manager (current) use of opiate Z79.891 Active analgesic Problem Hematuria, unspecified R31.9 Activ e Problem Essential hypertension I10 Activ e Problem Depressive disorder, not elsewhere F32.9 Active classified Problem Encounter for long-term (current) Z79.899 Active use of other medications Problem Rheumatoid arthritis of multiple M05.79 Active sites without organ or system involvement with positive rheumatoid factor Medications No Known Medications Results No Known Results Summary Purpose eClinicalWorks Submission
--- OUTSIDE RECORDS SUMMARY | 2020-04-04 13:14 | XMS REPORT ---
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
--- OUTSIDE RECORDS SUMMARY | 2020-04-04 13:15 | XMS REPORT ---
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
--- OUTSIDE RECORDS SUMMARY | 2020-04-04 13:15 | XMS REPORT ---
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
--- OUTSIDE RECORDS SUMMARY | 2020-04-04 13:15 | XMS REPORT ---
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 Z79.891 Active analgesic Problem Encounter for long-term (current) Z79.899 Active use of other medications Problem terminologist (current) use of systemic Z79.52 Active steroids Problem Depressive disorder, not elsewhere F32.9 Active classified Problem Generalized osteoarthrosis, M15.9 Active involving multiple sites Problem Rheumatoid arthritis of multiple M05.79 Active sites without organ or system involvement with positive rheumatoid factor Problem Essential hypertension I10 Activ e Medications No Known Medications Results No Known Results Summary Purpose [employer] Submission
--- OUTSIDE RECORDS SUMMARY | 2020-04-04 13:15 | XMS REPORT ---
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 Z79.891 Active analgesic Assessment Rheumatoid arthritis of multiple M05.79 Active sites without organ or system involvement with positive rheumatoid factor Problem Generalized osteoarthrosis, 715.09 Active involving multiple sites Problem Cellulitis and abscess of leg, 682.6 Active except foot Problem Rheumatoid arthritis 714.0 Active Problem 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
--- OUTSIDE RECORDS SUMMARY | 2020-04-04 13:15 | XMS REPORT ---
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
--- OUTSIDE RECORDS SUMMARY | 2020-04-04 13:15 | XMS REPORT ---
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
--- OUTSIDE RECORDS SUMMARY | 2020-04-04 13:15 | XMS REPORT ---
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
--- OUTSIDE RECORDS SUMMARY | 2020-04-04 13:15 | XMS REPORT ---
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 Z79.891 Active analgesic Assessment Acute pyelonephritis N10 Active Assessment Urinary tract infection, site not N39.0 Active specified Problem Hematuria, unspecified R31.9 Activ e Problem [...] (current) Z79.899 Active use of other medications Assessment 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 Z79.891 Active analgesic Assessment shelter (current) use of systemic Z79.52 Active steroids Problem Rheumatoid arthritis 714.0 Active Problem Unspecified essential hypertension 401.9 Active Assessment Rheumatoid arthritis of multiple M05.79 Active sites without organ or system involvement with positive rheumatoid factor Problem Generalized osteoarthrosis, 715.09 Active involving multiple sites Problem Cellulitis and abscess of leg, 682.6 Active except foot Medications Medication Code Code Instructions Start End Status Dosage System Date Date Sotalol HCl [facility] 78919618196 120 MG Orally Active 1 tablet every 12 hrs Centrum Silver [facility] 08572176367 Orally Active not defined Flomax [facility] [address]-82 0.4 MG Orally Active 1 ca psule Once a day 30 minutes after the same meal each day Chlorthalidone [facility] 43205640769 25 MG Orally Active 1 tablet Once a day in the morning Needle (Disp) [facility] 61842526296 27G X 3/8 Active as subcutaneously directed once a week with Methotrexate Calcium NDC 0 200 MG Orally Active not defined Vitamin D [facility] 00357108012 2000 UNIT Orally Active 1 tablet Once a day Spironolactone ND 12516302767 50 MG Orally Active 1 tablet Twice a day Diamox Sequels [facility] 37529294149 250 mg Orally Active 1 capsule Once a day Metformin HCl [facility] 71089257910 1000 MG Orally Active 1 tablet twice a day with a meal Syringe [facility] 68947975955 1 ML Jul 11, Active as (Disposable) subcutaneously 2014 dire cted once a week with Methotrexate Methotrexate [facility] 36597261735 25 MG/ML SQ once Active .8ml Sodium a week Lorazepam [facility] 64903880797 1 MG Orally once Active 1 tablet at bed time as needed Iron [facility] 13402312515 325 (65 Fe) MG Active 1 tab let Orally Once a day Protonix [facility] 18029381342 40 MG Orally Active 1 tabl et Once a day Carafate [facility] [address]-04 Active not defined Vitamin C [facility] 86119949411 500 MG Orally Active not defined PredniSONE [facility] 84038998427 5 MG Orally Once Active 1 tablet a day Xarelto [facility] 03590624053 20 MG Orally Active not Once a day defined Anakinra [facility] [address]-73 100 MG/0.67ML Active as Subcutaneous directed once a day PredniSONE [facility] 78715459093 10 MG Orally Active 1 ta blet Once a day Duloxetine HCl [facility] 19088910088 60 MG Orally Active 1 capsule Twice a day B-12 Compliance [facility] 88780813944 1000 MCG/ML Active 1 ml Injection Injection Esomeprazole [facility] [address]-74 Active not Sodium defined Omeprazole [facility] 53302195106 20 MG Orally Sept Active 1 ca psule Once a day 2016 Januvia [facility] 29373782198 100 MG Orally Active 1 tabl et Once a day Folic Acid ND 64672658339 1 MG Orally Active not defined Vital Signs Date/Time: Oct 05, 2019 BMI 52.22 Index Weight 364 lbs Height 70 in Cardiac Monitoring Heart Rate 91 /min Blood Pressure Diastolic 41 mm Hg Blood Pressure Systolic 72 mm Hg Results No Known Results Summary Purpose eClinicalWorks Submission
[2020-04-04 13:40] VITALS: BMI 37.1
[2020-04-04] MEDS ORDERED: POLYETHYL GLY 3350 17 GM/DOSE PO PRN (13:49)
[2020-04-04] MEDS ORDERED: HOME MED 1 EA UNK (Lactulose [Lactulose] 30 ML) PO SCH (14:00)
[2020-04-04] MEDS ORDERED: LACTULOSE 20 GM/30 ML UCUP PO PRN (14:14)
[2020-04-04] MEDS: HYDROCODONE/APAP 10/325 TAB PO PRN ×2 (14:16→18:20)
[2020-04-04] MEDS: Meropenem 1,000 MG in NA CHLORIDE 0.9% 100 ML IV SCH ×2 (14:17→21:09)
[2020-04-04 14:35] LABS: Absolute Lymphocytes (CBC) 1.7 K/uL (0.7-4.9); Basophils % 0.5 % (0-1.3); Hematocrit 34.8 % (39.6-49.0); Lymphocytes % 14.6 % (15.3-44.8); MPV 8.1 fL (7.6-11.3)
[2020-04-04 14:58] LABS: Albumin 3.3 g/dL (3.4-5.0); Bilirubin Total 0.3 mg/dL (0.2-1.0); Potassium 4.3 mmol/L (3.5-5.1); Protein, Total 6.4 g/dL (6.4-8.2)
[2020-04-04] MEDS ORDERED: Meropenem 1000 MG/VIAL IV SCH (15:00)
[2020-04-04 15:02] LABS: Magnesium 1.2 mg/dL (1.8-2.4)
[2020-04-04] MEDS ORDERED: Magnesium Sulfate 2gm IVPB 2 G/50 ML BAG IV ONE (16:00)
[2020-04-04] MEDS: RIVAROXABAN 20 MG TABLET PO SCH (16:38)
[2020-04-04] MEDS ORDERED: SOTALOL HCL 120 MG PO SCH (21:00)
[2020-04-04] MEDS: SOTALOL HCL 80 MG TAB PO SCH (21:10)
[2020-04-04] MEDS ORDERED: NA CHLORIDE 0.9% 250 ML IV ONE ×2 (21:11→21:30)
[2020-04-04] MEDS: DULOXETINE 30 MG CAP PO SCH (21:11)
[2020-04-04] MEDS: SPIRONOLACTONE 25 MG TABLET PO SCH (21:11)
[2020-04-05] MEDS: HYDROCODONE/APAP 10/325 TAB PO PRN ×4 (00:43→20:13)
[2020-04-05] MEDS ORDERED: MAGNESIUM SULFATE 1 gm IVPB 1 GM/100 ML BAG IV ONE (01:17)
--- NOTE | 2020-04-05 02:45 | HP ---
Date of Admission: 04/04/2020 Reason For Admission: Urinary tract infection. History Of Present Illness: This is a 59-year-old male patient who has urethral stricture and does straight cath bladder 2 times a day for urethral stricture problem. He has history of recurrent UTI, including ESBL organism requiring IV antibiotics on multiple occasions. Two days ago he contacted me and informed me that he was having symptoms of urinary tract infection with dysuria, right flank pain, and he took 2 doses of Levaquin at home from supply that he had at home but that did not help him and so he contacted me 2 days ago. After he contacted me he was advised to get urinalysis, urine culture done, and this morning lab from hospital contacted me and informed me that his urine culture was growing E coli which was ESBL. With that result, the patient was contacted and he was advised to get admitted to the hospital directly, after arrangements were completed he was admitted. I saw him this evening. He has chronic nausea problem that has not changed lately. Medications: List reviewed. Review of Systems: GI: As mentioned above. Genitourinary: As mentioned above. All other systems reviewed and negative. Allergies: DEMEROL, REMICADE, AND LATEX. Social History: Negative for smoking, alcohol use. Family History: Not pertinent. Past Surgical History: Port-A-Cath placement and lysis of adhesions with segmental resection of small bowel due to small-bowel obstruction without perforation. Abdominal wall abscess and had surgery for that and also surgery for ventral abdominal hernia and knee surgery. Past Medical History: Significant for paroxysmal atrial fibrillation, chronic anticoagulation therapy, sleep apnea, unable to use CPAP machine due to significant claustrophobia problem, hypertension, Crohn disease, chronic steroid therapy, chronic anticoagulation therapy, rheumatoid arthritis, morbid obesity, urethral stricture requiring daily catheterization of bladder usually 2 times a day and recurrent urinary tract infections. Physical Examination: Vital Signs: Temperature 97.6, pulse 94, respiratory rate 18, blood pressure 108/88, saturation 93%. Height 6 feet 2 inches, weight 289 pounds. General: Awake, alert, oriented, not in distress. HEENT: Head atraumatic, normocephalic. Conjunctivae nonerythematous. Sclerae white. Mouth, no thrush or edema noted. Ears/Nose, no mass, lesion, discharge noted. Neck: Supple. No JVD, lymph nodes, bruit, thyromegaly noted. Lungs: Bilateral good equal air entry. Clear to auscultation. No rhonchi. No rales. Heart: Normal heart sounds, no murmur or gallop. Abdomen: Anterior abdominal wall shows presence of ventral abdominal wall hernia. Presence of tenderness in the right anterior flank region. Bowel sounds normoactive. No guarding or rigidity. No rebound tenderness. Extremities: No leg edema. No calf tenderness. Skin: No rash, ulcer, cellulitis. Lymphatics: No lymph node enlargement in neck, supraclavicular, infraclavicular region. Neuro: No focal neurological deficit. Chest: Unremarkable. External Genitalia: Deferred. Rectal: Deferred. Laboratory Data: White count 11.7, hemoglobin 11.4. Sodium 140, potassium 4.3, chloride 107, bicarb 25, BUN 22, creatinine 1.12, glucose 142, magnesium 1.2. Liver function tests unremarkable troponin. Procalcitonin less than 0.05. Lactic acid 3.9. Urine culture growing E coli and it is ESBL. Impression: 1. Acute pyelonephritis, organism Escherichia coli, extended spectrum beta lactamase. 2. Hypotension. 3. Chronic steroid therapy. 4. Anemia, unspecified. 5. Hypomagnesemia. 6. Paroxysmal atrial fibrillation. 7. Chronic anticoagulation therapy. 8. Hypertension. 9. Crohn disease. 10. Rheumatoid arthritis. 11. Ventral abdominal wall hernia. Plan: Admit patient to hospital for further evaluation and management of this problem. Patient is appropriate for inpatient and is expected to spend 2 midnights in the hospital. Home medications will be continued per order. We will give IV meropenem per order, IV fluid 250 mL x2 bolus was ordered this evening after I saw him as his systolic blood pressure was around 87 to 88. Home medications will be continued per order. I will see him tomorrow for followup. Port-A-Cath was accessed and patient will receive IV fluid and IV antibiotics through that. Social service consultation was requested to make arrangements for home IV antibiotic therapy. Details and plan of treatment discussed with patient. JORDAN/KENDALL Voice ID: [id number] [email or web address]
[2020-04-05 06:43] LABS: Magnesium 1.9 mg/dL (1.8-2.4)
[2020-04-05] MEDS: acetaZOLAMIDE 250 MG TAB PO SCH (08:37)
[2020-04-05] MEDS: PANTOPRAZOLE 40MG TABLET PO SCH (08:37)
[2020-04-05] MEDS: CHLORTHALIDONE 25 MG TAB PO SCH (08:37)
[2020-04-05] MEDS: SOTALOL HCL 80 MG TAB PO SCH ×2 (08:37→20:15)
[2020-04-05] MEDS: FOLIC ACID 1 MG TABLET PO SCH (08:37)
[2020-04-05] MEDS: predniSONE 20 MG TAB PO SCH (08:37)
[2020-04-05] MEDS: DULOXETINE 30 MG CAP PO SCH ×2 (08:37→20:13)
[2020-04-05] MEDS: SPIRONOLACTONE 25 MG TABLET PO SCH ×2 (08:38→20:14)
[2020-04-05] MEDS: Meropenem 1,000 MG in NA CHLORIDE 0.9% 100 ML IV SCH ×2 (08:39→20:15)
[2020-04-05] MEDS ORDERED: HOME MED 1 EA UNK (Esomeprazole Mag Trihydrate [Nexium] 40 MG) PO SCH (09:00)
[2020-04-05 10:06] VITALS: O2SAT 92
[2020-04-05] MEDS ORDERED: ONDANSETRON 4 MG/2 ML VIAL IV PRN (13:42)
[2020-04-05] MEDS ORDERED: HYDROCORTISONE SUC 100 MG INJ IV ONE ×2 (13:50→19:52)
[2020-04-05] MEDS: NA CHLORIDE 0.9% 250 ML IV PRN ×2 (13:57→17:27)
[2020-04-05] MEDS: PROMETHAZINE INJ 25 MG/ML AMP IV PRN ×2 (14:26→20:14)
[2020-04-05] MEDS: RIVAROXABAN 20 MG TABLET PO SCH (16:43)
[2020-04-05] MEDS ORDERED: NA CHLORIDE 0.9% 500 ML IV ONE (17:05)
--- NOTE | 2020-04-05 19:22 | PN ---
Date of Progress Note: 04/05/2020 Subjective: Patient was seen this morning for followup. He was lying in bed, not in distress. No n ew complaints or problems reported. Objective: Vital Signs: Reviewed. HEENT: Unremarkable. Lungs: Clear to auscultation. Heart: Sounds normal. Abdomen: Soft. Bowel sounds normal. No guarding, rigidity, or distention. Presence of right anter ior flank tenderness. Extremities: No leg edema. Laboratory Data: Sodium 140, potassium 4, chloride 105, bicarb 31, BUN 23, creatinine 0.98, glucose 107, magnesium 1.9. Impression: 1.Acute pyelonephritis. 2.Hypomagnesemia. 3.Chronic steroid therapy. Plan: Patient's blood pressure was low last night was given 500 mL of IV fluid bolus. This morning when I saw him, his blood pressure was fine, but just a while ago the last vital signs around noontim e, I saw that blood pressure was low again so we will give another bolus of IV fluid and also give hi m 1 dose of Solu-Cortef 100 mg IV. Social Service is trying to make arrangements for home IV antibio tic therapy. JORDAN/MODL Voice ID: [id number] Report ID: [id number]
[2020-04-05] MEDS ORDERED: WATER FOR INJ,STERILE 10 ML ONE (20:18)
[2020-04-06] MEDS: PROMETHAZINE INJ 25 MG/ML AMP IV PRN ×4 (00:48→13:22)
[2020-04-06] MEDS: HYDROCODONE/APAP 10/325 TAB PO PRN ×4 (00:48→13:23)
[2020-04-06] MEDS: SOTALOL HCL 80 MG TAB PO SCH (09:30)
[2020-04-06] MEDS: FOLIC ACID 1 MG TABLET PO SCH (09:30)
[2020-04-06] MEDS: acetaZOLAMIDE 250 MG TAB PO SCH (09:30)
[2020-04-06] MEDS: DULOXETINE 30 MG CAP PO SCH (09:30)
[2020-04-06] MEDS: predniSONE 20 MG TAB PO SCH (09:31)
[2020-04-06] MEDS: PANTOPRAZOLE 40MG TABLET PO SCH (09:31)
[2020-04-06] MEDS: SPIRONOLACTONE 25 MG TABLET PO SCH (09:31)
[2020-04-06] MEDS: Meropenem 1,000 MG in NA CHLORIDE 0.9% 100 ML IV SCH (09:31)
[2020-04-06] MEDS: CHLORTHALIDONE 25 MG TAB PO SCH (09:38)
[2020-04-06 15:06] VITALS: BP 104/59; TEMP 98.5
--- NOTE | 2020-04-07 10:27 | DS ---
Date of Discharge: 04/06/2020 Disposition: Discharged to go home. Physical Examination: HEENT: Unremarkable. Lungs: Clear to auscultation. Cardiac: Heart sounds normal. Abdomen: Soft, bowel sounds normal. No guarding, rigidity, tenderness, or distention. Extremities: No leg edema. Laboratory Data: White count 11.7, hemoglobin 11.4, platelets 279. Sodium 140, potassium 4, chlorid e 105, bicarb 31, BUN 23, creatinine 0.98, glucose 107, magnesium 1.9. Magnesium was 1.2 upon admiss ion. Hospital Course: A 59-year-old pleasant male patient admitted to the hospital with urinary tract inf ection symptoms. Had dysuria and urine culture done on outpatient basis grew E coli which was ESBL. Patient was contacted soon as the urine culture result became available for direct admission to the hospital and he was admitted directly to medical floor. He has a Port-A-Cath, which was accessed and IV antibiotic meropenem 1000 mg IV every 12 hours was started using his Port-A-Cath access. Routine labs showed low magnesium, which was corrected using electrolyte replacement protocol. He did have some periods of hypotension requiring IV fluid boluses and a couple of doses of IV steroids. Overall , his condition has improved. Social Service was consulted to help make arrangements for IV antibiot ic therapy, meropenem 1000 mg IV every 12 hours for 10 days. Once antibiotic arrangements completed, he was discharged to go home in stable condition. He sees urologist Dr. Alvarez in [place] on a regular basis for urethral stricture and at home he does self catheterization of bladder and his usually assist him with this about 2 times a day. I did talk to him about entertaining possibility of supra pubic catheter and he told me that he already had this discussion with Dr. Alvarez and at this point Dr. Padilla muñoz does not want to consider such intervention because of lack of adequate amount of soft tissue in phelps prapubic area considering multiple prior surgeries, so Dr. Alvarez has determined at this point that the r isk is higher than the benefit from such procedure, so he will continue his treatment at home with in termittent catheterization per Dr. Alvarez. Discharge Medications And Instructions: 1.Continue all prior home medications. 2.Magnesium oxide 400 mg 2 times a day. 3.Meropenem 1000 mg IV piggyback every 12 hours for 10 days and once IV antibiotic therapy completed , discontinue Port-A-Cath access. Final Diagnoses: 1.Acute pyelonephritis, organism Escherichia coli, extended-spectrum beta lactamase. 2.Hypomagnesemia. 3.Hypotension. 4.Chronic steroid therapy. 5.Anemia, unspecified. 6.Paroxysmal atrial fibrillation. 7.Chronic anticoagulation therapy. 8.Hypertension. 9.Crohn disease. 10.Rheumatoid arthritis. 11.Ventral abdominal wall hernia. JORDAN/MODL Voice ID: [id number] Report ID: [id number]
== END 2020-04-06 13:45 | disposition home or self-care (01) | DRG 690 ==
LOC: 2ND 13:11
PROVIDERS: ADMIT Internal Medicine; ATTEND Internal Medicine
DX: N10 Acute pyelonephritis (principal); Z16.12 Extended spectrum beta lactamase (ESBL) resistance; K50.90 Crohn's disease, unspecified, without complications; B96.20 Unspecified Escherichia coli [E. coli] as the cause of diseases classified elsewhere; I95.9 Hypotension, unspecified; Z79.52 Long term (current) use of systemic steroids; D64.9 Anemia, unspecified; I48.0 Paroxysmal atrial fibrillation; Z79.01 Long term (current) use of anticoagulants; I10 Essential (primary) hypertension; M06.9 Rheumatoid arthritis, unspecified; K43.9 Ventral hernia without obstruction or gangrene; E83.42 Hypomagnesemia; Z88.5 Allergy status to narcotic agent; Z88.8 Allergy status to other drugs, medicaments and biological substances; Z91.040 Latex allergy status
CPT/HCPCS: 36415; 80048; 80053; 82947; 83605; 83735; 84145; 85025; J1720; J2405; J2550; J3475; J7030; J7512

== ENCOUNTER 2020-04-16 18:17 | Inpatient (IN) | payer OTHER ==
--- OUTSIDE RECORDS SUMMARY | 2020-04-16 18:41 | XMS REPORT | Clinical Summary ---
:1960 Author Organization [facility] Address [address] [place] [address] Care Team Providers Name Role Phone Unavailable [...] Not on file Results Not on fileafter 04/16/2019
--- OUTSIDE RECORDS SUMMARY | 2020-04-16 18:41 | XMS REPORT | Clinical Summary ---
:1960 Author Organization [facility] Address [address] [place] [address] Care Team Providers Name Role Phone Asked, [...] 09/26/2019 Documentation Weight Management Geraldine Gandara RN [facility] Follow Up Call after 04/16/2019 Family History Medical History Relation Name Comments [...] INFLUENZA VACCINE 06/22/2020 Results Not on fileafter 04/16/2019 Insurance Payer Benefit Plan / Subscriber ID Effective Dates Phone Addre ss Type Group MEDICARE MEDICARE PART A xxxxxxxxxxx 2015-Present [place], [place] Medicare AND B CIGNA CIGNA OPEN xxxxxxxxxxx 2018-Present HMO ACCESS/NETWORK Advance Directives For more information, please contact: [phone] Type Date Recorded Patient Generation Engineer Explanati on Advance Directives, Living Will 07/21/2011 10:29 AM and Medical Power of Counter Attendant
--- OUTSIDE RECORDS SUMMARY | 2020-04-16 18:42 | XMS REPORT ---
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
--- OUTSIDE RECORDS SUMMARY | 2020-04-16 18:42 | XMS REPORT ---
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
--- OUTSIDE RECORDS SUMMARY | 2020-04-16 18:42 | XMS REPORT ---
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 Active density and structure, right forearm Problem Encounter for long-term (current) Z79.899 Active use of other medications Problem Rheumatoid arthritis of multiple M05.79 Active sites without organ or system involvement with positive rheumatoid factor Problem [facility] (current) use of systemic Z79.52 Active steroids [...] End Status Dosage System Date Date Esomeprazole [facility] [address]-08 Active not Sodium defined Anakinra NDC [address]-79 100 MG/0.67ML Active as Subcutaneous directed once a day Spironolactone ND 14343209561 50 MG Orally Active 1 tablet Twice a day Diamox Sequels [facility] 90867301415 250 mg Orally Active 1 capsule Once a day Lorazepam ND 99784927952 1 MG Orally once Active 1 tablet at bed time as needed Methotrexate ND 38185412945 25 MG/ML SQ once Active 1 Sodium a week PredniSONE ND 42690648981 10 MG Orally Active 1 ta blet Once a day Cimzia Prefilled [facility] 14245387347 2 X 200 MG/ML Dec 07Jun Activ e 1 ml Subcutaneous 2019, every other week 2019 Sotalol HCl [facility] 94503177287 120 MG Orally Active 1 tablet every 12 hrs Needle (Disp) [facility] 40615421834 27G X 3/8 Active as subcutaneously directed once a week with Methotrexate Vitamin D [facility] 55951160259 2000 UNIT Orally Active 1 tablet Once a day Iron [facility] 35292886917 325 (65 Fe) MG Active 1 tab let Orally Once a day Folic Acid [facility] 87080577942 1 MG Orally Once Active 1 tablet a day Duloxetine HCl [facility] 12130325443 60 MG Orally Active 1 capsule Twice a day Syringe [facility] 88193946522 1 ML Jul 11, Active as (Disposable) subcutaneously 2014 dire cted once a week with Methotrexate Novuvia [facility] 43508478444 100 MG Orally Active 1 tabl et Once a day B-12 Compliance [facility] 06162571007 1000 MCG/ML Active 1 ml Injection Injection Vitamin C [facility] 77151891564 500 MG Orally Active not defined Metformin HCl [facility] 23683701663 1000 MG Orally Active 1 tablet twice a day with a meal Chlorthalidone [facility] 21180496181 25 MG Orally Active 1 tablet Once a day in the morning Xarelto [facility] 24671439466 20 MG Orally Active not Once a day defined Centrum Silver [facility] 52864069131 Orally Active not defined PredniSONE [facility] 70987206899 5 MG Orally Once Active 1 tablet a day Flomax [facility] [address]-83 0.4 MG Orally Active 1 ca psule Once a day 30 minutes after the same meal each day Alendronate [facility] 19648260920 70 MG Orally Active 1 t ablet Sodium once a week 30 minutes before the first food, beverage or medicine of the day with plain water Omeprazole [facility] 88068679487 20 MG Orally Sept Active 1 ca psule Once a day 2016 Carafate [facility] [address]-56 Active not defined Protonix [facility] 19516609479 40 MG Orally Active 1 tabl et Once a day Calcium NDC 0 200 MG Orally Active not defined Results No Known Results Summary Purpose eClinicalWorks Submission
--- OUTSIDE RECORDS SUMMARY | 2020-04-16 18:42 | XMS REPORT | Continuity of Care Document ---
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
[2020-04-16 18:54] LABS: Arterial Blood Carboxyhemoglob 1.4 % (0-1.5); Blood Gas Oxyhemoglobin 93.3 % (94-97); Blood O2 Saturation 95.7 % (92-98.5)
[2020-04-16 19:08] LABS: Absolute Lymphocytes (CBC) 3.2 K/uL (0.7-4.9); Basophils % 0.6 % (0-1.3); Hematocrit 37.5 % (39.6-49.0); Lymphocytes % 21.4 % (15.3-44.8); MPV 8.5 fL (7.6-11.3)
[2020-04-16 19:12] LABS: Protime INR 1.03
--- NOTE | 2020-04-16 19:34 | RAD REPORT ---
EXAM DESCRIPTION: RAD - Chest Single View - 04/16/2020 7:27 pm CLINICAL HISTORY: AMS Chest pain. COMPARISON: Chest Single View dated 09/18/2019; Chest Single View dated 09/17/2019; Chest Single Vie w dated 09/14/2019; Chest Pa And Lat (2 Views) dated 06/19/2019 FINDINGS: Portable technique limits examination quality. The lungs are underinflated with small bilateral pleural effusions suspected, greater on the left. He art size is moderately enlarged. Right-sided port catheter has tip in the SVC.
--- NOTE | 2020-04-16 19:37 | RAD REPORT ---
EXAM DESCRIPTION: CT - Head Brain Wo Cont - 04/16/2020 7:30 pm CLINICAL HISTORY: CONFUSED Headache, drowsiness COMPARISON: Head Brain Wo Cont dated 09/19/2019 TECHNIQUE: All CT scans are performed using dose optimization technique as appropriate and may inclu de automated exposure control or mA/KV adjustment according to patient size. FINDINGS: No intracranial hemorrhage, hydrocephalus or extra-axial fluid collection.No areas of brai n edema or evidence of midline shift. The paranasal sinuses and mastoids are clear. The calvarium is intact. IMPRESSION: No acute intracranial abnormality.
[2020-04-16 19:38] LABS: Potassium 4.9 mmol/L (3.5-5.1)
[2020-04-16] MEDS ORDERED: NA CHLORIDE 0.9% 1,000 ML ONE (20:15)
[2020-04-16 20:24] LABS: Blood Morphology Comment NOTED (NOT SEEN); Platelet Estimate ADEQ
[2020-04-16 20:25] LABS: Anisocytosis SLIGHT; Macrocytosis 1+
[2020-04-16 20:29] LABS: Urine Bacteria <20 /HPF (NONE SEEN); Urine Culture Reflex Order REFLEXED; Urine RBC <5 /HPF (NONE SEEN); Urine Yeast PRESENT (NONE SEEN)
[2020-04-16 20:31] LABS: Arterial Blood Carboxyhemoglob 1.6 % (0-1.5); Blood Gas Oxyhemoglobin 91.8 % (94-97); Blood O2 Saturation 94.3 % (92-98.5)
[2020-04-16 20:48] LABS: Urine Blood NEGATIVE (NEG); Urine Glucose NEGATIVE (NEG); Urine Protein 1+ (NEG); Urine Specific Gravity >1.030 (1.005-1.030)
[2020-04-16] MEDS ORDERED: MORPHINE 4 MG/ML SYR IV PRN (21:15)
[2020-04-16] MEDS ORDERED: IPRATROPIUM BROM 0.5MG/2.5ML NEB PRN (21:15)
[2020-04-16] MEDS ORDERED: ONDANSETRON 4 MG/2 ML VIAL IV PRN (21:15)
[2020-04-16] MEDS ORDERED: ALBUTEROL 2.5 MG/3 ML NEB SOL NEB PRN (21:15)
[2020-04-16] MEDS ORDERED: ACETAMINOPHEN 500 MG TAB PO PRN (21:15)
[2020-04-16] MEDS ORDERED: HYDROCODONE/APAP 5/325 MG TAB PO PRN (21:15)
[2020-04-16] MEDS ORDERED: D5 0.45 NS 1,000 ML IV ONE (21:55)
[2020-04-16] MEDS ORDERED: D5 0.45 NS 1,000 ML IV SCH (23:00)
[2020-04-16 23:56] VITALS: BMI 39.5
[2020-04-17] MEDS ORDERED: Meropenem 500 MG VIAL IV SCH ×2 (01:00→04:00)
[2020-04-17 06:33] LABS: Absolute Lymphocytes (CBC) 2.9 K/uL (0.7-4.9); Basophils % 0.4 % (0-1.3); Hematocrit 31.8 % (39.6-49.0); Lymphocytes % 17.3 % (15.3-44.8); MPV 9.1 fL (7.6-11.3); Potassium 4.1 mmol/L (3.5-5.1); RBC Red Blood Cell Count 3.07 M/uL (4.33-5.43)
[2020-04-17] MEDS ORDERED: NA CHLORIDE 0.9% 500 ML IV ONE (07:55)
[2020-04-17] MEDS ORDERED: SODIUM CHLORIDE 0.9% 10ML INJ IV PRN (08:00)
[2020-04-17] MEDS ORDERED: VANCOMYCIN/NS 1 gm 1 GM/250 ML BAG IVPB SCH (08:00)
[2020-04-17] MEDS ORDERED: D50W 25 GM/50 ML SYRINGE/VIAL IV PRN (08:00)
[2020-04-17] MEDS ORDERED: GLUCAGON 1 MG/VIAL IM PRN (08:00)
[2020-04-17] MEDS: D5 0.9 NS 1,000 ML IV SCH ×2 (08:30→20:05)
[2020-04-17] MEDS: HYDROCORTISONE SUC 100 MG INJ IV SCH ×3 (08:30→17:06)
[2020-04-17] MEDS: WATER FOR INJ,STERILE 10 ML IV SCH ×3 (08:30→17:08)
[2020-04-17 08:32] LABS: ALT/SGPT 28 U/L (12-78); AST/SGOT 18 U/L (15-37); Albumin 2.8 g/dL (3.4-5.0); Alkaline Phosphatase 66 U/L (45-117); Bilirubin Direct < 0.1 mg/dL (0-0.2); Bilirubin Total 0.3 mg/dL (0.2-1.0); Magnesium 1.8 mg/dL (1.8-2.4); Protein, Total 5.4 g/dL (6.4-8.2)
[2020-04-17] MEDS ORDERED: PANTOPRAZOLE 40 MG INJ IVP SCH (09:00)
[2020-04-17] MEDS ORDERED: VANCOMYCIN 2 GM in NA CHLORIDE 0.9% 500 ML IVPB ONE (09:00)
[2020-04-17] MEDS ORDERED: ENOXAPARIN 100 MG/ML SYR SQ SCH (09:00)
[2020-04-17] MEDS: Meropenem 500 MG in NA CHLORIDE 0.9% 100 ML IV SCH ×2 (09:25→17:02)
[2020-04-17 10:56] LABS: Anisocytosis 1+; Blood Morphology Comment NOTED (NOT SEEN); Platelet Estimate ADEQ
[2020-04-17] MEDS: INSULIN -REGULAR HUMAN 50 UNIT/0.5 ML ML SQ SCH ×3 (11:30→19:51)
--- NOTE | 2020-04-17 12:13 | P.CNS ---
Date of Consult: 04/17/20 Reason for Consult: Respiratory failure Chief Complaint: Altered mental status History of Present Illness: Patient is 59 years of age admitted with altered mental status as found to be on acute on chronic respiratory failure with severe hypercapnia transfer to the ICU placed on BiPAP is currently on response patient was acidotic non compliant with the noninvasive ventilator at home history of sleep apnea patient's white count elevated he was recently discharged with an ESBL infection patient is anti coagulated Allergies infliximab [From Remicade] Allergy (Severe, Verified 09/14/19 23:19) Anaphylaxis latex Allergy (Severe, Verified 09/14/19 23:19) Anaphylaxis Latex, Natural Rubber Allergy (Severe, Verified 09/14/19 23:19) Anaphylaxis meperidine HCl [From Demerol] Adverse Reaction (Intermediate, Verified 09/14/19 23:19) Nausea/Vomiting Home Medications: Chlorthalidone [Hygroton 25mg Tab*] 25 mg PO DAILY 01/15/20 Duloxetine [Cymbalta *] 60 mg PO BID 01/15/20 Esomeprazole Mag Trihydrate [Nexium] 40 mg PO DAILY 01/15/20 Folic Acid 1 mg PO DAILY 01/15/20 Hydrocodone 10/APAP 325 [[place] 10/325*] 1 - 2 tab PO Q4H PRN 01/15/20 Methotrexate Sodium/Pf [Methotrexate 50 mg/2 ml Vial] 0.8 ml SQ EVERY 7TH DAY 01/15/20 Rivaroxaban [Xarelto*] 20 mg PO DAILY 01/15/20 Sotalol HCl [Sotalol] 120 mg PO BID 01/15/20 Spironolactone [Aldactone*] 50 mg PO BID 01/15/20 acetaZOLAMIDE [Diamox*] 250 mg PO DAILY 01/15/20 predniSONE [Prednisone*] 20 mg PO DAILY 01/15/20 Lactulose 30 ml PO SEECOM 02/17/20 Polyethylene Glycol 3350 [Miralax] 17 gm PO DAILY PRN 02/17/20 Metformin HCl [Glucophage] 1,000 mg PO BID 04/04/20 Sitagliptin Phosphate [Januvia*] 100 mg PO DAILY 04/04/20 Alendronate Sodium 70 mg PO Q7D 04/05/20 Calcium Carbonate/Vitamin D3 [Caltrate 600 Plus D3 Tablet] 1 tab PO BID 04/05/20 Cimza 100 mcg SQ SEECOM 04/05/20 Cyanocobalamin (Vitamin B-12) [Cyanocobalamin Injection] 10,000 mcg SQ SEECOM 04/05/20 Ergocalciferol (Vitamin D2) [Vitamin D 50,000 Unit Cap] 50,000 units PO Q7D 04/05/20 Multivitamin 1 tab PO DAILY 04/05/20 predniSONE [Prednisone*] 20 mg PO DAILYPRN PRN 04/05/20 Magnesium Oxide [Mag 0X Tab] 400 mg PO BID #60 tab 04/06/20 - Past Medical/Surgical History Diabetic: No -: PE, DVT, RA -: SINUS TACHYCARDIA -: AVASCULAR NECROSIS OF LEFT and right HIP -: GERD -: CROHN'S, CHRONIC ANEMIA -: AFIB, SBO, VENTRAL HERNIA -: URETHRAL STRICTURE -: TESTICULAR CA 1985 -: MORBID OBESITY -: ACUTE CYSTITIS -: OBS SLEEP APNEA -: renal insuff 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 -: L & R HIP REPLACEMENT -: L KNEE REPLACEMENTS/DEBRIDEMENTS/ETC -: L knee spacer abx -: 30 yrs ago retroperitoneal lymph node dissection -: R SIDED ORCHIECTOMY -: L HIP REPLACEMENT, R WRIST FRACTURE -: gastric sleeve 2016, Multiple (over 15) abd surg, Bowel resection x4 -: Abdominal Abscess and wound vac - Family History Brother Medical History: Heart disease, Hypertension, Cancer, Liver disease Mother Medical History: Hypertension, Stroke, Cancer Notes: Lung Cancer Father Medical History: Stroke, Cancer, Other (see notes) Notes: Melanoma - Social History Smoking Status: Unknown if ever smoked Alcohol use: No CD- Drugs: No Caffeine use: Yes Place of Residence: Home Review of Systems is unable to be obtained Physical Examination Temp Pulse Resp BP Pulse Ox 97.2 F 89 23 H 106/71 100 04/17/20 04:00 04/17/20 11:00 04/17/20 11:00 04/17/20 11:00 04/17/20 11:00 General: Unresponsive HEENT: Atraumatic Neck: Supple Respiratory: Clear to auscultation bilaterally Cardiovascular: Normal S1 S2, Abnormal S3, Edema Gastrointestinal: Normal bowel sounds, Soft and benign Laboratory Data (last 24 hrs) 04/16/20 18:51: PT 12.1, INR 1.03, APTT 34.6 04/16/20 18:51: Sodium 137, Potassium 4.9, BUN 35 H, Creatinine 1.32 H, Glucose 135 H 04/16/20 18:51: WBC 14.9 H D, Hgb 11.8 L, Hct 37.5 L, Plt Count 281 - Problems (1) Acute and chronic respiratory failure ([id number]) Current Visit: Yes Status: Resolved Plan: Patient is 59 years of age with a history of sleep apnea obesity hyperventilation syndrome admitted with worsening hypercapnia non compliant with his noninvasive ventilator at home mild microcytic anemia patient's pCO2 was 125 BNP was elevated chest x-ray is portable maybe rotated looks abnormal patient is on Merrem and vancomycin recent diagnosis of any ESBL infection will discuss with his regarding the use of the BiPAP patient also has a history of insomnia Patient has obesity hypoventilation syndrome with chronic respiratory failure and will benfit from Non invasive ventilator. to prevent recurrent hospital a dmissions Qualifiers: Respiratory failure complication: hypoxia and hypercapnia Qualified Code(s): J96.21 - Acute and chronic respiratory failure with hypoxia; J96.22 - Acute and chronic respiratory failure with hypercapnia
--- NOTE | 2020-04-17 12:52 | EKG ---
Test Date: 2020-04-16 Test Time: 18:50:24 Wet Mixer: SRINIVAS MEASUREMENT RESULTS: Intervals: Rate: 74 WI: 160 QRSD: 96 QT: 428 QTc: 475 [place]: P: 18 WI: 160 QRS: 110 T: 58 INTERPRETIVE STATEMENTS: Normal sinus rhythm Right axis deviation Low voltage QRS Incomplete right bundle branch block Septal infarct, age undetermined Abnormal ECG Compared to ECG 09/14/2019 18:58:49 Incomplete right bundle-branch block now present Sinus tachycardia no longer present Myocardial infarct finding still present Electronically Signed On 04-17-20 12:50:20 CDT by Gaston Phillips
[2020-04-17] MEDS: HYDROCODONE/APAP 10/325 TAB PO PRN ×3 (12:59→21:41)
[2020-04-17 14:53] LABS: Arterial Blood Carboxyhemoglob 1.5 % (0-1.5); Blood Gas Oxyhemoglobin 83.3 % (94-97); Blood O2 Saturation 85.7 % (92-98.5)
[2020-04-17] MEDS: DULOXETINE 30 MG CAP PO SCH (20:06)
[2020-04-17] MEDS: MAGNESIUM OXIDE 400 MG TAB PO SCH (20:10)
[2020-04-17] MEDS ORDERED: SOTALOL HCL 80 MG TAB PO SCH (21:00)
[2020-04-18] MEDS: WATER FOR INJ,STERILE 10 ML IV SCH ×2 (00:08→05:00)
[2020-04-18] MEDS: Meropenem 500 MG in NA CHLORIDE 0.9% 100 ML IV SCH ×3 (00:08→17:11)
[2020-04-18] MEDS: HYDROCORTISONE SUC 100 MG INJ IV SCH ×2 (00:08→05:00)
[2020-04-18] MEDS: VANCOMYCIN 1.5 GM in NA CHLORIDE 0.9% 500 ML IVPB SCH ×2 (02:17→20:44)
[2020-04-18] MEDS: D5 0.9 NS 1,000 ML IV SCH (04:59)
[2020-04-18] MEDS: HYDROCODONE/APAP 10/325 TAB PO PRN ×4 (05:05→21:34)
[2020-04-18] MEDS: INSULIN -REGULAR HUMAN 50 UNIT/0.5 ML ML SQ SCH ×4 (07:30→20:44)
[2020-04-18] MEDS ORDERED: POLYETHYL GLY 3350 17 GM/DOSE PO PRN (07:35)
[2020-04-18] MEDS ORDERED: D5 0.9 NS 1,000 ML IV SCH (07:37)
[2020-04-18] MEDS ORDERED: LACTULOSE 20 GM/30 ML UCUP PO PRN (08:00)
[2020-04-18] MEDS: acetaZOLAMIDE 250 MG TAB PO SCH (08:16)
[2020-04-18] MEDS: FOLIC ACID 1 MG TABLET PO SCH (08:16)
[2020-04-18] MEDS: predniSONE 20 MG TAB PO SCH ×2 (08:16→20:42)
[2020-04-18] MEDS: MAGNESIUM OXIDE 400 MG TAB PO SCH ×2 (08:17→20:42)
[2020-04-18] MEDS: PANTOPRAZOLE 40MG TABLET PO SCH (08:17)
[2020-04-18] MEDS: SOTALOL HCL 80 MG TAB PO SCH ×2 (08:17→20:41)
[2020-04-18] MEDS: RIVAROXABAN 20 MG TABLET PO SCH (08:17)
[2020-04-18] MEDS: DULOXETINE 30 MG CAP PO SCH ×2 (08:17→20:40)
[2020-04-18] MEDS: SITAGLIPTIN PHOS 100 MG TAB PO SCH (08:17)
[2020-04-18] MEDS ORDERED: HOME MED 1 EA UNK (Esomeprazole Mag Trihydrate [Nexium] 40 MG) PO SCH (09:00)
--- NOTE | 2020-04-18 13:28 | P.PN ---
Subjective Date of Service: 04/18/20 Chief Complaint: Respiratory failure Subjective: Improving (He is doing much better today is more alert responsive no new complaints has slight diarrhea urinary frequency and dysuria) Review of Systems General: Weakness Respiratory: Shortness of Breath Physical Examination - Vital Signs Temperature: 98.6 F Blood Pressure: 101/62 Pulse: 89 Respirations: 19 Pulse Ox (%): 99 - Physical Exam General: Alert, Oriented x3 HEENT: Atraumatic Neck: Supple Respiratory: Clear to auscultation bilaterally Cardiovascular: Regular rate/rhythm, Edema Assessment & Plan - Problems (Diagnosis) (1) Acute and chronic respiratory failure ([id number]) Current Visit: Yes Status: Resolved Plan: Patient most likely has obesity hyperventilation syndrome/obstructive sleep apnea noncompliance with noninvasive ventilator in the past that was returned requested for another noninvasive ventilator may need a sleep study as an outpatient patient's white count is elevated patient has hypoxemia hypercapnia blood cultures urine cultures are all negative no evidence of sepsis patient is on steroids has a no prior pulmonary issues Qualifiers: Respiratory failure complication: hypoxia and hypercapnia Qualified Code(s): J96.21 - Acute and chronic respiratory failure with hypoxia; J96.22 - Acute and chronic respiratory failure with hypercapnia
--- NOTE | 2020-04-18 21:00 | PN ---
Date of Progress Note: 04/18/2020 Subjective: Patient was seen this morning for followup. No new complaints, problems reported by him . His was present with him at bedside. Objective: Vital signs: Reviewed. Blood pressure is much better. HEENT: Unremarkable. Lungs: Clear to auscultation. Cardiac: Heart sounds normal. Abdomen: Soft, bowel sounds normal. No guarding, rigidity, tenderness, distention. Extremities: No leg edema. Impression: 1.Acute respiratory failure with hypercapnia. 2.Obstructive sleep apnea. 3.Paroxysmal atrial fibrillation. 4.Rule out urinary tract infection. 5.Chronic anticoagulation therapy. 6.Chronic steroid therapy. Plan: We will continue his anticoagulation therapy with Xarelto. We will stop IV steroid and start oral prednisone 20 mg twice a day. Increase his sotalol dose back to his usual dose of 120 mg twice a day. Other home medications will be continued and we will transfer him out of ICU to regular room. Dr. Maradiaga is trying to set noninvasive ventilator for home use for him. Once that is arranged, we will be able to discharge him to go home and that might happen in next day or 2 days. Continue cu rrent empiric antibiotics. Culture results pending. JORDAN/MODL Voice ID: [id number] Report ID: [id number]
--- NOTE | 2020-04-18 21:06 | HP ---
Date of Admission: 04/16/2020 Chief Complaint: Altered mental status. History Of Present Illness: This is a 59-year-old male patient who was brought into emergency room w ith altered mental status and he was found to be in acute respiratory failure with hypercapnia. Afte r he was evaluated in the emergency room, he was started on BiPAP therapy and he responded very well and he was admitted to intensive care unit. When I saw him this morning, his COVID test results had come back negative, so isolation will be discontinued. Medications: List reviewed. Review of Systems: Respiratory: As mentioned above. All other systems reviewed and negative. Allergies: DEMEROL, REMICADE, LATEX. Social History: Negative for smoking, alcohol use. Family History: Not pertinent. Past Surgical History: Port-A-Cath placement, lysis of adhesions with segmental resection of small b owel due to small-bowel obstruction without perforation, abdominal wall abscess and surgery for that, also surgery for ventral abdominal wall hernia, and knee surgery. Past Medical History: Significant for paroxysmal atrial fibrillation, chronic anticoagulation therap y, sleep apnea, unable to use CPAP machine due to significant claustrophobia problem, hypertension, C rohn disease, chronic steroid therapy, chronic anticoagulation therapy, rheumatoid arthritis, morbid obesity, urethral stricture requiring catheterization of bladder 2 times a day, which is usually done by his and recurrent urinary tract infections. Physical Examination: Vital Signs: Height 6 feet 3 inches, weight 316 pounds, temperature 97.2, pulse 76, respiratory rate 14, blood pulse 106/78, oxygen saturation 97%. General: Patient is somnolent on BiPap therapy, wakes up with verbal and physical stimulus. Not in any respiratory distress HEENT: Head atraumatic, normocephalic. Conjunctivae nonerythematous. Sclerae white. Mouth, no thr ush or edema noted. Ears/Nose, no mass, lesion, discharge noted. Neck: Supple. No JVD, lymph nodes, bruit, thyromegaly noted. Lungs: Bilateral good equal air entry. Clear to auscultation. No rhonchi. No rales. Heart: Normal heart sounds, no murmur or gallop. Abdomen: Multiple anterior abdominal wall hernia present. Abdomen is soft. Normal bowel sounds. N o guarding, rigidity, tenderness. Extremities: No leg edema. No calf tenderness. Skin: No rash, ulcer, cellulitis. Lymphatics: No lymph node enlargement in neck, supraclavicular, infraclavicular region. Neuro: No focal neurological deficit. Chest: Unremarkable. External Genitalia: Deferred. Rectal: Deferred. Labs: When he came into ER, white count 14.9, hemoglobin 11.8, platelets 281. This morning, white c ount 17, hemoglobin 10.2, platelets 230. His initial chemistry, sodium 137, potassium 4.9, chloride 97, bicarb 35, BUN 35, creatinine 1.32, glucose 135. Troponin less than 0.02. Today, sodium 138, po tassium 4.1, chloride 100, bicarb 31, BUN 29, creatinine 0.92, glucose 120. Initial blood gas pH 7.0 6, pCO2 125, PO2 109, oxygen saturation 95% on 100% FiO2. Repeat blood gas pH 7.19, pCO2 82.9, PO2 8 3.6, oxygen saturation 94% on 60% FiO2. Urinalysis; nitrite negative, wbc's 10-20, bacteria less aminata n 20. Chest x-ray lungs are underinflated with small bilateral perfusion. CAT scan of brain, no acu te abnormality. Impression: 1.Acute respiratory failure with hypercapnia. 2.Obstructive sleep apnea. 3.Paroxysmal atrial fibrillation. 4.Chronic anticoagulation therapy. 5.Chronic steroid therapy. 6.Rheumatoid arthritis. 7.Crohn disease. 8.Chronic steroid therapy. 9.Morbid obesity. 10.Rule out urinary tract infection. Plan: We will admit patient to hospital for further evaluation and management of this problem. Mary ent is appropriate for inpatient and is expected to spend 2 midnights in the hospital. His COVID-19 test is negative. He will be moved out of isolation. We will go ahead and give him IV steroid per o rder because his blood pressure is running on low side. Also will give IV fluid bolus 500 cc normal saline per order. Home medications will be continued including his sotalol that he takes 120 mg twic e a day at home. We will just give about 40 mg twice a day. Once his blood pressure comes up, we wi ll increase the dose back to his normal dose. Continue his anticoagulation therapy per order and con sult Dr. Maradiaga. The ER details were discussed with him and I will see him tomorrow for followup. JORDAN/MODL Voice ID: [id number]
[2020-04-19] MEDS: Meropenem 500 MG in NA CHLORIDE 0.9% 100 ML IV SCH ×2 (01:23→08:40)
[2020-04-19] MEDS: HYDROCODONE/APAP 10/325 TAB PO PRN ×4 (01:28→14:22)
[2020-04-19 05:53] LABS: Absolute Lymphocytes (CBC) 1.7 K/uL (0.7-4.9); Basophils % 0.3 % (0-1.3); Hematocrit 31.2 % (39.6-49.0); Lymphocytes % 16.8 % (15.3-44.8); MPV 8.3 fL (7.6-11.3); RBC Red Blood Cell Count 2.99 M/uL (4.33-5.43)
[2020-04-19 06:24] LABS: BUN Blood Urea Nitrogen 17 mg/dL (7-18); Bicarbonate 28 mmol/L (21-32); Glucose Level 168 mg/dL (74-106); Potassium 4.3 mmol/L (3.5-5.1); Sodium Level 143 mmol/L (136-145)
[2020-04-19] MEDS: INSULIN -REGULAR HUMAN 50 UNIT/0.5 ML ML SQ SCH ×2 (07:30→11:20)
[2020-04-19] MEDS: RIVAROXABAN 20 MG TABLET PO SCH (08:34)
[2020-04-19] MEDS: acetaZOLAMIDE 250 MG TAB PO SCH (08:34)
[2020-04-19] MEDS: predniSONE 20 MG TAB PO SCH (08:35)
[2020-04-19] MEDS: SOTALOL HCL 80 MG TAB PO SCH (08:35)
[2020-04-19] MEDS: SITAGLIPTIN PHOS 100 MG TAB PO SCH (08:35)
[2020-04-19] MEDS: FOLIC ACID 1 MG TABLET PO SCH (08:35)
[2020-04-19] MEDS: DULOXETINE 30 MG CAP PO SCH (08:36)
[2020-04-19] MEDS: PANTOPRAZOLE 40MG TABLET PO SCH (08:36)
[2020-04-19] MEDS: MAGNESIUM OXIDE 400 MG TAB PO SCH (08:37)
[2020-04-19 09:44] VITALS: O2SAT 98
[2020-04-19 12:03] VITALS: BP 92/56; TEMP 96.6
--- NOTE | 2020-04-19 12:40 | P.PN ---
Subjective Date of Service: 04/19/20 Chief Complaint: Respiratory failure Subjective: Improving (Patient is improving she he is concerned about his condition the guarding is hypoxemia and hypercarbia) Review of Systems General: Weakness Respiratory: Shortness of Breath Physical Examination - Vital Signs Temperature: 96.6 F Blood Pressure: 92/56 Pulse: 80 Respirations: 18 Pulse Ox (%): 98 - Physical Exam General: Alert, In no apparent distress, Oriented x3 Respiratory: Clear to auscultation bilaterally Cardiovascular: No edema, Regular rate/rhythm, Edema - Studies Microbiology Data (last 24 hrs): 04/16/20 19:45 Catheterized Urine Brooks Count - Final 04/16/20 19:45 Catheterized Urine - Final No growth. Assessment & Plan - Problems (Diagnosis) (1) Acute and chronic respiratory failure ([id number]) Current Visit: Yes Status: Resolved Plan: Patient has been setup for a noninvasive ventilation is concerned about his condition as to why he can he remains hypoxic although is room-air sat was around 94% which is improved with deep inspiratory breaths I think ill improved with positive pressure ventilation he had outpatient pulmonary function testing will see again schedule him for a sleep study to adjust his ventilator white count is back to normal chemistries unremarkable able to be discharged home room-air sat is on 94% Qualifiers: Respiratory failure complication: hypoxia and hypercapnia Qualified Code(s): J96.21 - Acute and chronic respiratory failure with hypoxia; J96.22 - Acute and chronic respiratory failure with hypercapnia Discharge Plan: Home
[2020-04-19] MEDS ORDERED: HEPARIN 500 UNIT/5 ML SYR IV PRN (15:09)
--- NOTE | 2020-04-20 09:34 | DS ---
Date of Discharge: 04/19/2020 Disposition: Discharged to go home. Physical Examination: HEENT: Unremarkable. Lungs: Clear to auscultation. Heart: Sounds normal. Abdomen: Soft. Bowel sounds normal. No guarding, rigidity, tenderness, distention. Extremities: No leg edema. Laboratory Data: Upon admission, white count 14.9, hemoglobin 11.8, platelets 281, which was on 03/23. On 04/17/2020, white count went up to 17,000. Today, white count is normal at 10, hemoglobi n 10.2, platelets 230. Initial blood gas when he came into emergency room on 04/16/2020, pH 7.06, pC O2 125, pO2 109, oxygen saturation 95.7% on 100% FiO2. On 04/17/2020, blood gas shows pH 7.37, pCO2 51.9, pO2 49.9, oxygen saturation 85.7% on 21% FiO2. Last chemistry from today, sodium 143, potassiu m 4.3, chloride 108, bicarb 28, BUN 17, creatinine 0.71, glucose 168, magnesium 2. Hospital Course: This is a 59-year-old male patient who was admitted to the hospital after he was br ought into emergency room with altered mental status. Please see dictated H and P for more informati on. After patient was evaluated in the emergency room, he was diagnosed as having acute respiratory failure with hypercapnia and he was treated in the emergency room with BiPAP, responded very well. I nitially, he was admitted to ICU. Subsequently as his condition improved, he was brought out of ICU to regular room. He was kept in isolation in the beginning and once his COVID-19 test results came b ack negative. He was brought out of isolation. BiPAP therapy was continued. Dr. Maradiaga from [facility] was consulted and he made arrangements for patient to go ahead and have noninvasive ventilator set up for home use. Once all arrangements completed today, the patient was discharged to go home in stable condition. His altered mental status problem has improved. He is back to his baseline and t his improvement was noted with use of BiPAP therapy. He will use his BiPAP therapy as suggested by Sharonda Maradiaga at home and will continue to follow up on outpatient basis. He was given empiric antibio tic, which was vancomycin and meropenem and both antibiotics were discontinued today. Today, he repo rted when I saw him, mucousy type of discharge and diarrhea type of problem and we need to rule out p ossibility of Clostridium difficile colitis, so stool for C difficile was ordered and as per my discu ssion with the nursing staff, he had 2 bowel movements, but each time it was mixed with urine, so [facility] was not able to collect the stool specimen for test to be done and the patient will bring his stool specimen on outpatient basis. Nurse was advised to send order to lab. Final Diagnoses: 1.Acute respiratory failure with hypercapnia. 2.Obstructive sleep apnea. 3.Diarrhea. 4.Chronic anticoagulation therapy. 5.Paroxysmal atrial fibrillation. 6.Type 2 diabetes mellitus. JORDAN/MODL Voice ID: [id number] Report ID: [id number]
--- NOTE | 2020-04-22 13:43 | ER ---
Nurse's Notes [facility] Name: Husam Vela Age: 59 yrs Sex: Male : 1960 Arrival Date: 04/16/2020 Time: 18:30 Bed 4 Private MD: Diagnosis: Acute respiratory failure with hypercapnia;Severe sepsis without septic shock Presentation: 04/16 18:35 Chief complaint: EMS states: called out for lethargy, AMS, pt O2 machine went out some iw time today, pt was 84% on 4 L NC, up to 93% on NRB, ETCO2=45, IQ=117. Coronavirus screen: Proceed with normal triage. Patient denies a cough. Patient denies shortness of breath or difficulty breathing. Patient denies measured and/or subjective temperature greater than 100.4F prior to today's visit. Patient denies travel on a cruise ship or to a country the [facility] currently lists as an affected area. Patient denies contact with known and/or suspected case of COVID-19. Ebola Screen: Patient negative for fever greater than or equal to 101.5 degrees Fahrenheit, and additional compatible Ebola Virus Disease symptoms Patient denies exposure to infectious person. Patient denies travel to an Ebola-affected area in the 21 days before illness onset. No symptoms or risks identified at this time. Onset of symptoms was April 16, 2020. 18:35 Method Of Arrival: EMS: [facility] 18:35 Method Of Arrival: EMS: [facility] 18:35 Acuity: CECI 2 iw 18:38 Initial Sepsis Screen: Does the patient meet any 2 criteria? No. Patient's initial iw sepsis screen is negative. Does the patient have a suspected source of infection? No. Patient's initial sepsis screen is negative. Risk Assessment: Do you want to hurt yourself or someone else? Patient reports no desire to harm self or others. Historical: - Allergies: 18:33 Latex, Natural Rubber; sg 18:33 Demerol; sg 18:33 Remicade; sg - Home Meds: 18:42 acetazolamide 250 mg Oral tab 1 tab once daily [Active]; anakinra subcutaneous once iw daily [Active]; chlorthalidone 25 mg Oral tab 1 tab once daily [Active]; Cymbalta 60 mg Oral cpDR 2 caps once daily [Active]; folic acid 1 mg Oral tab 1 tab once daily [Active]; methotrexate (PF) subcutaneous [Active]; [place] 7.5-325 mg Oral tab 1 tab every 6 hours [Active]; prednisone 5 mg Oral tab 3 tabs once daily [Active]; Protonix 40 mg Oral chew 1 tab once daily [Active]; sotalol 120 mg Oral tab 1 tab 2 times per day [Active]; spironolactone 50 mg Oral tab 1 tab 2 times per day [Active]; Xarelto 20 mg Oral tab 1 tab once daily [Active]; - PMHx: 18:42 Atrial Fib; Hypertension; left kidney not working; RENAL INSUFF; Rheumatoid Arthritis; iw SBO; testicular CA; - PSHx: 18:42 Cardiac Ablation; mulitple abdominal surgeries; Knee surgery; hip surgery; Gastric iw Bypass; Cholecystectomy; Appendectomy; - Immunization history:: Adult Immunizations unknown. - Family history:: not pertinent. - Social history:: Smoking status: unknown. - Hospitalizations: : The patient was recently seen at [facility]. Screenin:45 Abuse screen: Denies threats or abuse. Denies injuries from another. Nutritional ah screening: No deficits noted. Tuberculosis screening: No symptoms or risk factors identified. Fall Risk No fall in past 12 months (0 pts). Secondary diagnosis (15 points) impaired mobility, IV access (20 points). Ambulatory Aid- None/Bed Rest/Nurse Assist (0 pts). Gait- Weak (10 pts.). Mental Status- Overestimates/Forgets Limitations (15 pts.). Total Plasencia Fall Scale indicates High Risk Score (45 or more points). Fall prevention measures have been instituted. Side Rails Up X 2 Placed Close to Nursing Station Frequent Obs/Assessments Occuring As available patient and family educated on Fall Prevention Program and Strategies. Assessment: 19:00 Reassessment: Attempted to straight cath pt, unable to advance catheter; Esvin RN jl7 notified no urine obtained at this time. 20:11 General: Appears comfortable, ill, Behavior is calm, cooperative. Pain: Denies pain. rv Neuro: Level of Consciousness is awake, alert, Oriented to person, place. Cardiovascular: Patient's skin is warm and dry. Rhythm is regular. Respiratory: Patient placed on BiPAP: FiO2%: 20. Derm: Skin is intact. 21:30 Reassessment: Pt resting with eyes closed, remains on BiPAP, pt tolerating well. No s/s ea of pain or discomfort noted at this time. Pt answers some questions at times. 23:10 Reassessment: Pt admitted to ICU, left ED via stretcher accompanied by respiratory ea tech, nurse and spouse. Pt on non rebreather tolerating well. Pt is more alert and answers questions more appropriately. Vital Signs: 18:38 BP 106 / 70; Pulse 76; Resp 14 S; Temp 97.2; Pulse Ox 97% on Non-rebreather mask; iw 19:00 BP 120 / 82; Pulse 72; Resp 20; Pulse Ox 97% on 60% BiPAP; rv 20:00 BP 108 / 89; Pulse 69; Resp 20; Pulse Ox 98% on 60% BiPAP; rv 21:00 BP 99 / 49; Pulse 69; Resp 20; Pulse Ox 100% on 60% BiPAP; rv 21:30 BP 99 / 49; Pulse 80; Resp 16; Pulse Ox 97% ; ea 22:00 BP 100 / 70; Pulse 70; Resp 20; Pulse Ox 100% on 60% BiPAP; rv 22:53 BP 97 / 71; Pulse 74; Resp 18; Pulse Ox 100% ; ea ED Course: 18:30 Patient arrived in ED. rn 18:35 Salvador Goldstein MD is Attending Physician. rn 18:38 Triage completed. iw 18:41 Arm band placed on. iw 18:45 Patient has correct armband on for positive identification. Placed in gown. Bed in low ah position. Call light in reach. Side rails up X2. monitoring and evaluation advisor on. Pulse ox on. NIBP on. Warm blanket given. 18:50 Maintain EMS IV. Dressing intact. Good blood return noted. Site clean \T\ dry. Gauge \T\ jl 7 site: 20 right FA. 19:02 Initial lab(s) drawn, by me, sent to lab. jl7 19:28 XRAY Chest (1 view) In Process Unspecified. EDMS 19:30 CT Head Brain wo Cont In Process Unspecified. EDMS 20:07 Malcom Castellano, STACEY is Primary Nurse. rv 20:44 Marty Tubbs MD is Hospitalizing Provider. ma2 21:29 No provider procedures requiring assistance completed. Patient admitted, IV remains in ea place. Accessed Port-a-Cath. using accessed w/ # 20 Harris needle, Clean \T\ dry. Dressing intact. Flushes easily. Administered Medications: 20:11 Drug: NS 0.9% 1000 ml Route: IV; Rate: 1 bolus; Site: left antecubital; rv 21:45 Follow up: Response: No adverse reaction; IV Status: Completed infusion; IV Intake: ea 1000ml 20:43 CANCELLED (na): AZITHromycin 500 mg IVPB once over 1 hrs; (mix in 250 mL NS) ma2 20:43 CANCELLED (other abx): Rocephin 1 grams IV at calculated rate once; Given slow IV push ma2 per pharmacy instructions 21:28 Drug: Meropenem 1 grams Route: IV; Rate: calculated rate; Site: Port-a-cath; ea 22:00 Follow up: IV Status: Completed infusion; IV Intake: 100ml rv 21:50 Drug: D5-1/2 NS 1000 ml Route: IV; Rate: 100 ml/hr; Site: left antecubital; rv 22:00 Follow up: IV Status: Infusion continued upon admission rv Intake: 21:45 IV: 1000ml; Total: 1000ml. ea 22:00 IV: 100ml; Total: 1100ml. rv Outcome: 20:45 Decision to Hospitalize by Provider. ma2 21:29 Instructed on instructed on need for admit, verbalized the understanding of ea instruction 23:08 Admitted to ICU accompanied by nurse, accompanied by tech, via stretcher, room 8, with ea oxygen, on monitor, with chart, Report called to Receiving nurse in ICU 23:08 Condition: stable 23:12 Patient left the ED. ea Signatures: Dispatcher [employer] EDMS Krishna Rajput RN RN sg Williams, Irene, RN RN iw Nieto, Roman, MD MD rn Leal, Jahala, RN RN jl7 Antunez, Elena, RN RN ea Alzahri, Mohammad, MD MD ma Malcom Castellano RN RN rv Harris, Amy, RN RN Corrections: (The following items were deleted from the chart) 19:16 18:50 Maintain EMS IV. Dressing intact. Good blood return noted. Site clean \T\ dry. jl7 Gauge \T\ site: 20 right FA. 19:16 19:00 Reassessment: Attempted to straight cath pt, unable to advance catheter; Esvin, RN jl7 notified no urine obtained at this time ah
--- NOTE | 2020-04-22 13:44 | EDPHYS ---
Physician Documentation [facility] Name: Husam Vela Age: 59 yrs Sex: Male : 1960 Arrival Date: 04/16/2020 Time: 18:30 Bed 4 Private MD: ED Physician Salvador Goldstein HPI: 04/16 18:36 This 59 yrs old Male presents to ER via Unassigned with complaints of AMS. rn 18:36 The patient presents with confusion, decreased responsiveness. Onset: The rn symptoms/episode began/occurred this morning. Possible causes: unknown. Current symptoms: In the emergency department the patient's symptoms are unchanged from the initial presentation. The patient has experienced similar episodes in the past. Per EMS and spouse, problems with concentrator and hypoxia today, difficult to arouse, no fever, no recent illness, no trauma. Spouse states just recently completed meropenem for UTI. Has had problems in past with elevated CO2 and confusion thought to be 2/2 sleep apnea. . Historical: - Allergies: 18:33 Latex, Natural Rubber; sg 18:33 Demerol; sg 18:33 Remicade; sg - Home Meds: 18:42 acetazolamide 250 mg Oral tab 1 tab once daily [Active]; anakinra subcutaneous once iw daily [Active]; chlorthalidone 25 mg Oral tab 1 tab once daily [Active]; Cymbalta 60 mg Oral cpDR 2 caps once daily [Active]; folic acid 1 mg Oral tab 1 tab once daily [Active]; methotrexate (PF) subcutaneous [Active]; [place] 7.5-325 mg Oral tab 1 tab every 6 hours [Active]; prednisone 5 mg Oral tab 3 tabs once daily [Active]; Protonix 40 mg Oral chew 1 tab once daily [Active]; sotalol 120 mg Oral tab 1 tab 2 times per day [Active]; spironolactone 50 mg Oral tab 1 tab 2 times per day [Active]; Xarelto 20 mg Oral tab 1 tab once daily [Active]; - PMHx: 18:42 Atrial Fib; Hypertension; left kidney not working; RENAL INSUFF; Rheumatoid Arthritis; iw SBO; testicular CA; - PSHx: 18:42 Cardiac Ablation; mulitple abdominal surgeries; Knee surgery; hip surgery; Gastric iw Bypass; Cholecystectomy; Appendectomy; - Immunization history:: Adult Immunizations unknown. - Family history:: not pertinent. - Social history:: Smoking status: unknown. - Hospitalizations: : The patient was recently seen at [facility]. ROS: 18:36 Unable to obtain ROS due to altered mental status. rn 20:45 Cardiovascular: Negative for chest pain, palpitations, and edema. ma2 Exam: 18:36 Constitutional: Overweight male, confused, opens eyes to voice and pain but falls rn asleep easily. Head/Face: Normocephalic, atraumatic. ENT: dry MM, no swelling or stridor Cardiovascular: Regular rate and rhythm. No pulse deficits. Respiratory: Slow respirations Abdomen/GI: soft, + large ventral hernias, non-tender MS/ Extremity: Pulses equal, no cyanosis. Neurovascular intact. Full, normal range of motion. Equal circumference. Neuro: Awake, moves all 4 extremities, not oriented to place or time. Somnolent. Vital Signs: 18:38 BP 106 / 70; Pulse 76; Resp 14 S; Temp 97.2; Pulse Ox 97% on Non-rebreather mask; iw 19:00 BP 120 / 82; Pulse 72; Resp 20; Pulse Ox 97% on 60% BiPAP; rv 20:00 BP 108 / 89; Pulse 69; Resp 20; Pulse Ox 98% on 60% BiPAP; rv 21:00 BP 99 / 49; Pulse 69; Resp 20; Pulse Ox 100% on 60% BiPAP; rv 21:30 BP 99 / 49; Pulse 80; Resp 16; Pulse Ox 97% ; ea 22:00 BP 100 / 70; Pulse 70; Resp 20; Pulse Ox 100% on 60% BiPAP; rv 22:53 BP 97 / 71; Pulse 74; Resp 18; Pulse Ox 100% ; ea MDM: 18:35 Patient medically screened. rn 18:41 ED course: Co2 120s on ABG, placed on bipap. . rn 18:58 Transition of care: After a detail discussion of the patient's case, care is rn transferred to Esperanza Bentley MD. 20:43 Differential Diagnosis: hypoglycemia, overdose, pneumonia, seizure, TIA, UTI, volume ma2 depletion. Data reviewed: vital signs, nurses notes. Counseling: I had a detailed discussion with the patient and/or guardian regarding: the historical points, exam findings, and any diagnostic results supporting the discharge/admit diagnosis, the presence of at least one elevated blood pressure reading (>120/80) during this emergency department visit, the need for further work-up and treatment in the hospital. ED course: discussed with dr. arriaga recommends meropenem and consult to dr. santos . 04/16 18:35 Order name: CBC with Diff; Complete Time: 20:37 rn 04/16 18:35 Order name: Basic Metabolic Panel; Complete Time: 20:00 04/16 18:35 Order name: Protime (+inr); Complete Time: 20:00 04/16 18:35 Order name: Ptt, Activated; Complete Time: 20:00 04/16 18:35 Order name: Urine Culture 04/16 18:35 Order name: Urine Microscopic Only; Complete Time: 20:37 04/16 18:35 Order name: ABG; Complete Time: 20:00 04/16 18:35 Order name: BNP; Complete Time: 20:00 04/16 19:17 Order name: Manual Differential; Complete Time: 20:37 EDKY 04/16 19:52 Order name: Urine Dipstick--Ancillary (enter results); Complete Time: 21:30 ar5 04/16 20:04 Order name: Arterial Blood Gas ds4 04/16 20:05 Order name: ABG Arterial Blood Gas; Complete Time: 20:37 EDKY 04/16 20:43 Order name: Blood Culture Adult (2) ma2 04/16 21:27 Order name: Basic Metabolic Panel [facility] 04/16 18:35 Order name: CT Head Brain wo Cont; Complete Time: 20:00 04/16 18:35 Order name: XRAY Chest (1 view); Complete Time: 20:00 04/16 21:27 Order name: Basic Metabolic Panel [facility] 04/16 21:27 Order name: CBC with Automated Diff [facility] 04/16 21:27 Order name: CBC with Automated Diff [facility] 04/16 21:27 Order name: NT PRO-BNP [facility] 04/16 21:27 Order name: NT PRO-BNP [facility] 04/16 21:27 Order name: Troponin I [facility] 04/16 21:27 Order name: Troponin I [facility] 04/16 21:27 Order name: Troponin I [facility] 04/16 21:34 Order name: CORONAVIRUS EDKY 04/16 18:35 Order name: IV Start; Complete Time: 19:05 rn 04/16 18:35 Order name: Urine Dipstick-Ancillary (obtain specimen); Complete Time: 20:11 rn 04/16 18:35 Order name: Monitor; Complete Time: 19:04 rn 04/16 18:35 Order name: Oxygen Per Protocol; Complete Time: 19:04 rn 04/16 21:27 Order name: EKG Electrocardiogram [facility] 04/16 21:27 Order name: EKG Electrocardiogram [facility] Administered Medications: 20:11 Drug: NS 0.9% 1000 ml Route: IV; Rate: 1 bolus; Site: left antecubital; rv 21:45 Follow up: Response: No adverse reaction; IV Status: Completed infusion; IV Intake: ea 1000ml 20:43 CANCELLED (na): AZITHromycin 500 mg IVPB once over 1 hrs; (mix in 250 mL NS) ma2 20:43 CANCELLED (other abx): Rocephin 1 grams IV at calculated rate once; Given slow IV push ma2 per pharmacy instructions 21:28 Drug: Meropenem 1 grams Route: IV; Rate: calculated rate; Site: Port-a-cath; ea 22:00 Follow up: IV Status: Completed infusion; IV Intake: 100ml rv 21:50 Drug: D5-1/2 NS 1000 ml Route: IV; Rate: 100 ml/hr; Site: left antecubital; rv 22:00 Follow up: IV Status: Infusion continued upon admission rv Disposition: 20:44 Critical Care:. ma2 Disposition: 04/16/20 20:45 Hospitalization ordered by Marty Arriaga for Inpatient Admission. Preliminary diagnosis are Acute respiratory failure with hypercapnia, Severe sepsis without septic shock. - Bed requested for Intensive Care Unit. - Status is Inpatient Admission. ea - Condition is Stable. - Problem is new. - Symptoms are unchanged. Critical care time excluding procedures: 20:44 Critical care time: Bedside Care: 35 minutes, Consultation: 10 minutes, Family ma2 Intervention: 10 minutes. Total time: 55 minutes Signatures: Dispatcher [employer] EDKY Ashley Thacker RN RN mw Gay, Steven, RN RN sg Williams, Irene, RN RN iw Nieto, Roman, MD MD rn Antunez, Elena, RN RN ea Alzahri, Mohammad, MD MD [facility] Malcom Castellano, RN RN rv Corrections: (The following items were deleted from the chart) 20:43 20:37 AZITHromycin 500 mg IVPB once over 1 hrs; (mix in 250 mL NS) ordered. [place] [id number] 20:43 20:37 cefTRIAXone [Rocephin 1 grams IV at calculated rate once; Given slow IV push per [facility] pharmacy instructions] ordered. [facility] 20:50 20:45 Hospitalization Ordered by Marty Arriaga MD for Inpatient Admission. Preliminary diagnosis is Acute respiratory failure with hypercapnia; Severe sepsis without septic shock. Bed requested for Intensive Care Unit. Status is Inpatient Admission. Condition is Stable. Problem is new. Symptoms are unchanged. [facility] : 20:50 04/16/2020 20:45 Hospitalization Ordered by Marty Arriaga MD for Inpatient mw Admission. Preliminary diagnosis is Acute respiratory failure with hypercapnia; Severe sepsis without septic shock. Bed requested for Intensive Care Unit. Status is Inpatient Admission. Condition is Stable. Problem is new. Symptoms are unchanged. 23:12 21:26 04/16/2020 20:45 Hospitalization Ordered by Marty Arriaga MD for Inpatient ea Admission. Preliminary diagnosis is Acute respiratory failure with hypercapnia; Severe sepsis without septic shock. Bed requested for Intensive Care Unit. Status is Inpatient Admission. Condition is Stable. Problem is new. Symptoms are unchanged. mw
== END 2020-04-19 15:48 | disposition home or self-care (01) | DRG 189 ==
LOC: ER 18:17 → ERHOLD 21:59 → 3RD-ICU 22:28 → ERHOLD 22:34 → 3RD-ICU 22:58 → 2ND 04-18 11:45
PROVIDERS: ADMIT Internal Medicine; ATTEND Internal Medicine
PROC: 8E0ZXY6 Isolation (ICD-10-PCS; principal; 2020-04-16)
DX: J96.22 Acute and chronic respiratory failure with hypercapnia (principal); K50.90 Crohn's disease, unspecified, without complications; A04.72 Enterocolitis due to Clostridium difficile, not specified as recurrent; I48.0 Paroxysmal atrial fibrillation; G47.33 Obstructive sleep apnea (adult) (pediatric); Z79.52 Long term (current) use of systemic steroids; Z91.19 Patient's noncompliance with other medical treatment and regimen; J96.21 Acute and chronic respiratory failure with hypoxia; Z88.5 Allergy status to narcotic agent; Z88.8 Allergy status to other drugs, medicaments and biological substances; Z91.040 Latex allergy status; Z79.891 Long term (current) use of opiate analgesic; Z79.84 Long term (current) use of oral hypoglycemic drugs; Z79.899 Other long term (current) drug therapy; Z86.711 Personal history of pulmonary embolism; Z86.718 Personal history of other venous thrombosis and embolism; Z96.643 Presence of artificial hip joint, bilateral; Z96.652 Presence of left artificial knee joint; Z79.01 Long term (current) use of anticoagulants; K21.9 Gastro-esophageal reflux disease without esophagitis; D64.9 Anemia, unspecified; Z20.828 Contact with and (suspected) exposure to other viral communicable diseases; M06.9 Rheumatoid arthritis, unspecified; E66.01 Morbid (severe) obesity due to excess calories; Z68.39 Body mass index [BMI] 39.0-39.9, adult; R19.7 Diarrhea, unspecified
CPT/HCPCS: 36415; 70450; 71045; 80048; 80076; 81003; 81015; 82607; 82805; 82947; 83735; 83880; 84484; 85025; 85610; 85730; 87040; 87086; 87088; 93005; 94660; 94760; 96361; 96365; 99285; C9113; J1642; J1650; J1720; J7030; J7040; J7042; J7512; J7799

== ENCOUNTER 2020-09-03 12:46 | Inpatient (IN) | payer OTHER ==
--- OUTSIDE RECORDS SUMMARY | 2020-09-03 12:51 | XMS REPORT | Clinical Summary ---
:1960 Author Organization [facility] Address [address] [place] [address] Care Team Providers Name Role Phone Asked, Given Primary Care Provider Unavailable Allergies Active Allergy Reactions Severity Noted Date Comments Meperidine GI Intolerance High 03/19/2017 "severe vomit ing" Latex Anaphylaxis High 03/19/2017 Infliximab Anaphylaxis High 03/19/2017 Medications Medication Sig Dispensed Refills Start Date End Date Status folic acid (FOLVITE) 1 Take 1 mg [...] 3 (three) times a day before meals. Active Problems Problem Noted Date PAF (paroxysmal [...] Team Description 09/26/2019 Documentation Weight Management Geraldine Gandara, STACEY [facility] Follow Up Call after 09/03/2019 Surgical History Surgery Date Site/Laterality Comments FRACTURE SURGERY Right orif right wris t ABDOMINAL SURGERY 2001, 1998, ?, multiple small bowel 1989 resections for s mall bowel obstructio n, and multiple unknown hernia repairs CARDIAC ELECTROPHYSIOLOGY for at rial fib- yrs ago MAPPING AND ABLATION REPLACEMENT TOTAL KNEE 2012, 2012, 2014 Left KNEE SURGERY 11/22/2013 - placement of spa cers due 11/21/2014 to osteomylitis TOTAL HIP ARTHROPLASTY 11/22/2010 - Right bilateral total hip due 11/21/2011 to RA and avascu lar necrosis TOTAL HIP ARTHROPLASTY 11/22/2008 - Left bilateral total hip due 11/21/2009 to RA and avascu lar necrosis WRIST SURGERY 11/22/2007 - 11/21/2008 TUNNELED VENOUS CATHETER 11/22/2005 - Right Dr. Shaolnda barahona PLACEMENT 11/21/2006 VENTRAL HERNIA REPAIR 11/22/2004 - with mesh replacement 11/21/2005 due to peritonit is ORCHIECTOMY, RADICAL, 11/22/1985 - with lymph node ABDOMINAL APPROACH 11/21/1986 dissection GASTRECTOMY, SLEEVE, 03/31/2017 Abdomen/N/A Procedure: GASTRECTOMY, LAPAROSCOPIC SLEEVE, LAPAROSC OPIC; Surgeon: Yo Khan MD; Lo cation: [facility]; Se rvice: General; Latera lity: N/A; INCISION AND DRAINAGE HIP LAPAROTOMY, EXPLORATORY 10/05/2018 - Abdomen/N/A Procedur e: LAPAROTOMY, 10/06/2018 EXPLORATORY, SEG MENTAL RESECTION OF SMA LL BOWEL X4 WITH LYSIS OF ADHESION; Surge on: Yo Khan MD; Location: [facility]; Service: General ; Laterality: N/A; CARDIAC ELECTROPHYSIOLOGY 02/13/2019 N/A Proced ure: EP COMPLETE PROCEDURE EP STUDY W ABLAT ION PULMONARY VEIN; Surgeon: Tate Saldaña MD; Loc ation: [facility] WT Planning Consultant Invasive Location; Servi ce: Cardiology; Lat erality: N/A; Medical History Medical History Date Comments Arthritis rheumatoid - cymbalt a for the arthritis Acid reflux under control Urethral stricture on tamsulosin Anemia Deep vein thrombosis (HCC) 2013 left leg Pulmonary embolism (HCC) 2013 Depression mild- under control Sleep apnea patient to bring bip ap and mask Crohn disease (HCC) ?? 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 Chronic kidney disease one non functioni ng kidney- kidney function being monit ored Does not exercise wheelchair bound- du e to rheumatoid arthritis Anesthesia nhap/nfahp- denies a ny sob or chest pain Morbid obesity (HCC) History of ventral hernia repair Rheumatoid arthritis (HCC) Testicular cancer (HCC) testicular cance r- 30 yrs ago Urinary retention Atrial fibrillation, currently in sinus atrial fib- resolved by ablation- rhythm under control Essential hypertension 03/10/2018 Arrhythmia Hydronephrosis Family History Medical History Relation Name Comments [...] Not on file Last Filed Vital Signs Not on file Plan of Treatment Health Maintenance Due Date Last Done Comments COLONOSCOPY SCREENING 2011 SHINGLES VACCINES (#1) 2011 INFLUENZA VACCINE 06/22/2020 Results Not on fileafter 09/03/2019 Insurance Payer Benefit Plan / Subscriber ID Effective Dates Phone Addre ss Type Group MEDICARE MEDICARE PART A [id number] 2015-Present [place], [place] Medicare AND B CIGNA CIGNA OPEN [id number] 2018-Present HMO ACCESS/NETWORK Advance Directives For more information, please contact: [phone] Type Date Recorded Patient Consumer Affairs Director Explanati on Advance Directives, Living Will 07/21/2011 10:29 AM and Medical Power of Laboratory Equipment Cleaner
--- OUTSIDE RECORDS SUMMARY | 2020-09-03 12:51 | XMS REPORT | Clinical Summary ---
:1960 [address] [facility] Address [address] [place] [address] Care Team Providers Name Role Phone Unavailable Primary Care Provider Unavailable Allergies Not on File Medications Not on file Active Problems Not on file Encounters Date Type Specialty Care Team Description 04/16/2020 Lab Requisition Lab after 09/03/2019 Social History Tobacco Use Types Packs/Day Years Used Date Never Assessed Sex Assigned at Date Recorded Not on file Last Filed Vital Signs Not on file Plan of Treatment Not on file Procedures Procedure Name Priority Date/Time Associated Diagnosis Comme nts SARS-COV2/RT-PCR Routine 04/16/2020 9:45 PM Resu lts for this ([facility]) CDT procedure are in the results section. after 09/03/2019 Results SARS-CoV2/RT-PCR ([facility]) (04/16/2020 9:45 PM CDT) SARS-COV2/RT-PCR Not Detected Not Detected, [facility] Negative [facility] SARS-COV-2 [facility] PERFORMING LAB [facility] Specimen Other - Nasopharyngeal wall structure (b raquel structure) Narrative Performed At Negative results do not preclude SARS-CoV-2 [facility] infection and should not be used as the sole basis for patient management decisions. Negative results must be combined with clinical observations, patient history, and epidemiological information. A false negative result may occur if a specimen is improperly collected, transported or handled. The limit of detection for this assay is 250 copies/mL. This SARS CoV-2 test is a rapid, real-time RT-PCR test intended for the qualitative detection of nucleic acid from SARS-CoV-2 in a nasopharyngeal swab specimen collected from individuals suspected of COVID-19 by their healthcare provider. This test has not been Food and Drug Administration (FDA) cleared or approved and has been authorized by FDA under an Emergency Use Authorization (EUA). This EUA will be effective until the declaration that circumstances exist justifying the authorization of the emergency use of in vitro diagnostic tests for detection and/or diagnosis of COVID-19 is terminated under Section 564(b)(2) of the Act or the EUA is revoked under Section 564(g) of the Act. Fact Sheet for Healthcare Providers: https://www.[employer]/Documents/Xpert%20Xpre ss%20SARS%20CoV-2/Fact%20Sheets/3023802%20SAR S-COV-2%20HEALTHCARE%20PROVIDERS%20FACT%20SHEE T.pdf Fact Sheet for Healthcare Patients: https://www.[employer]/Documents/Xpert%20Xpre ss%20SARS%20CoV-2/Fact%20Sheets/302-9211%20SAR S-COV-2%20PATIENT%20FACT%20SHEET.pdf Performing Laboratory: [address] [place] [address] Performing Organization Address City/State/Zipcode Phone Number [facility] [address] [place] [phone] CENTER after 09/03/2019
--- OUTSIDE RECORDS SUMMARY | 2020-09-03 12:51 | XMS REPORT | Continuity of Care Document ---
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 Rh [facility] of head and neck of [place] of femur Rheumatoid Active Problem 09/01/[address] arthritis of [place] Unspecified Active Problem 09/01/[address] [facility] essential of [place] hypertension Generalized Active Problem 09/01/2020 [facility] osteoarthrosis, of H ou involving multiple sites 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 Problem 09/01/2020 [facility] (current) use of of [place] opiate analgesic Encounter for Active Problem 09/01/2020 [facility] long-term of [place] (current) use of other medications 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 Problem 09/01/2020 [facility] (current) use of of [place] systemic steroids Depressive Active Problem 09/01/[address] disorder, not of [place] elsewhere classified Generalized Active Problem 09/01/2020 [facility] osteoarthrosis, of H ou involving multiple sites Rheumatoid Active Problem 09/01/[address] arthritis of of [place] multiple sites without organ or system involvement with positive rheumatoid factor Essential Active Problem 09/01/2020 [facility] hypertension of [place] Hematuria, Active Problem 09/01/[address] unspecified of [place] Other specified Active Problem 09/01/2020 [facility] disorders of bone of [place] density and structure, left forearm Other specified Active Problem 09/01/2020 Rhe [facility] disorders of bone of [place] density and structure, right forearm Acute Active Diagnosis 12/01/2019 Rhe[facility] pyelonephritis of Ho u Urinary tract Active Diagnosis 12/01/2019 [facility] infection, site of H ou not specified Arthralgia of Active Diagnosis 08/01/2020 [facility] multiple joints of H ou Leukocytosis Active Problem 09/01/2020 [facility] of [place] Urinary tract Active Diagnosis 09/01/2020 [facility] infection of [place] Medications Medication Details Route Status Patient Ordering Order Source Instructions Provider Date Folic Acid 1 tablet Orally Active 1 MG Orally Vilardo 10/28/ Rheum Once a day 2019 Ctr of [place] Alendronate 1 tablet 30 Orally Active 70 MG Orally Vilardo 10/28/ Rhe um Sodium minutes once a week 2019 Ctr of before the [place] first food, beverage or medicine of the day dissolved in 4 ounces of water PredniSONE 1 tablet Orally Active 5 MG Orally Vilardo 10/28/ Rheum Once a day 2019 Ctr of [place] Alendronate 1 tablet 30 Orally Active 70 MG Orally Hola 09/04/ R heum Sodium minutes once a week 2019 Ctr of before the [place] first food, beverage or medicine of the day dissolved in 4 ounces of water PredniSONE 1 tablet Orally Active 20 MG Orally Vo 07/31/ Rheum Once a day as 2019 Ctr of needed [place] Duloxetine HCl 1 capsule Orally Active 60 MG Orally Vo 07/31/ Rh eum Twice a day 2019 Ctr of [place] Cimzia Starter 2 ml Subcutaneous Active 6 X 200 MG/ML Vo 01/10/ Rheum Kit Subcutaneous 2019 Ctr of weeks 0 2 and 4 [place] Cimzia 1 ml Subcutaneous Active 2 X 200 MG/ML Hola 12/07/ Rhe um Prefilled Subcutaneous 2019 Ctr of every other [place] week PredniSONE 1 tablet Orally Active 5 MG Orally Vo 08/29/ Rheum three times a 2018 Ctr of day [place] Folic Acid 1 tablet Orally Active 1 MG Orally Vo 07/06/ Rheum Once a day 2018 Ctr of [place] Omeprazole 1 capsule Orally Active 20 MG Orally Vilardo 07/29/ Rheum Once a day 2016 Ctr of [place] Syringe as directed subcutaneousl Active 1 ML Vilardo 07/11/ Rheum (Disposable) y subcutaneously 2014 Ctr of once a week [place] with Methotrexate Methotrexate as directed SQ Active 25 MG/ML SQ Hola R heum Sodium once a week Ctr of [place] Needle (Disp) as directed subcutaneousl Active 27G X 3/8 Vo Rheum y subcutaneously Ctr of once a week [place] with Methotrexate Duloxetine HCl 1 capsule Orally Active 60 MG Orally Vo Rh eum Twice a day Ctr of [place] Sotalol HCl 1 tablet Orally Active 120 MG Orally Vilardo Rheum every 12 hrs Ctr of [place] Centrum Silver not defined Orally Active Orally Vilardo Rheum Ctr of [place] Flomax 1 capsule 30 Orally Active 0.4 MG Orally Vilardo Rheum minutes Once a day Ctr of after the [place] same meal each day Chlorthalidone 1 tablet in Orally Active 25 MG Orally Vilardo Rheum the morning Once a day Ctr of [place] Calcium not defined Orally Active 200 MG Orally Vilardo Rheum Ctr of [place] Vitamin D 1 tablet Orally Active 2000 UNIT Vilardo Rheum Orally Once a Ctr of day [place] Spironolactone 1 tablet Orally Active 50 MG Orally Vilardo Rhe um Twice a day Ctr of [place] Diamox Sequels 1 capsule Orally Active 250 mg Orally Vilardo R heum Once a day Ctr of [place] Metformin HCl 1 tablet Orally Active 1000 MG Orally Vilardo Rh eum with a meal twice a day Ctr of [place] Lorazepam 1 tablet as Orally Active 1 MG Orally Vilardo Rheum needed once at bed Ctr of time [place] Iron 1 tablet Orally Active 325 (65 Fe) MG Vilardo Rheum Orally Once a Ctr of day [place] Protonix 1 tablet Orally Active 40 MG Orally Vilardo Rheum Once a day Ctr of [place] Carafate not defined NA Active Vilardo Rheum Ctr of [place] Vitamin C not defined Orally Active 500 MG Orally Vilardo Rheu m Ctr of [place] PredniSONE 1 tablet Orally Active 5 MG Orally Hola Rheum Once a day Ctr of [place] Xarelto not defined Orally Active 20 MG Orally Vilardo Rheum Once a day Ctr of [place] Anakinra as directed Subcutaneous Active 100 MG/0.67ML Hola Rheum Subcutaneous Ctr of once a day [place] PredniSONE 1 tablet Orally Active 10 MG Orally Vilardo Rheum Once a day Ctr of [place] B-12 Compliance 1 ml Injection Active 1000 MCG/ML Vilardo Rh eum Injection Injection Ctr of [place] Esomeprazole not defined NA Active Vilardo Rheum Sodium Ctr of [place] Januvia 1 tablet Orally Active 100 MG Orally Vilardo Rheum Once a day Ctr of [place] Folic Acid 1 tablet Orally Active 1 MG Orally Hola Rheum Once a day Ctr of [place] Needle (Disp) as directed subcutaneousl Active 27G X 3/8 Vilardo Rheum y subcutaneously Ctr of once a week [place] with Methotrexate Duloxetine HCl 1 capsule Orally Active 60 MG Orally Vilardo Rh eum Twice a day Ctr of [place] Alendronate 1 tablet 30 Orally Active 70 MG Orally Lenard Rhe um Sodium minutes once a week Ctr of before the [place] first food, beverage or medicine of the day with plain water Hydrocodone-Yosef 1 tablet as Orally Active 10-325 MG Vilardo Rh eum taminophen needed Orally every 6 Ctr of hrs [place] Promethazine 1 Rectal Active 25 MG Rectal Vilardo Rheum HCl suppository every 12 hrs Ctr of as needed [place] PredniSONE 1-3 tablet Orally Active 20 MG Orally Vilardo Rheum Once a day Ctr of [place] Restasis 1 drop into Ophthalmic Active 0.05 % Vilardo Rheum affected eye Ophthalmic Ctr of Twice a day [place] Ergocalciferol 1 capsule Orally Active 1.25 MG (76059 Vilardo Rheum [place]) Orally Ctr of [place] Cimzia as directed Subcutaneous Active 2 X 200 MG Vilardo Rheu m Subcutaneous Ctr of every 2 weeks [place] Methotrexate .8ml subcutaneousl Active 25 MG/ML Vilardo Rheu m Sodium y subcutaneously Ctr of once a week [place] Amitriptyline 1 tablet at Orally Active 50 MG Orally Vilardo R heum HCl bedtime Once a day Ctr of [place] Allergies, Adverse Reactions, Alerts Substance Category Reaction [...]
--- OUTSIDE RECORDS SUMMARY | 2020-09-03 12:51 | XMS REPORT ---
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
--- OUTSIDE RECORDS SUMMARY | 2020-09-03 12:51 | XMS REPORT ---
:1960 Author Organization e[employer] Care Team Providers Name Role Phone Mariam SimentalA Provider Role Unavailable Allergies, Adverse Reactions, Alerts [...] Active density and structure, left forearm Assessment Generalized osteoarthrosis, M15.9 Active involving multiple sites Problem Hematuria, unspecified R31.9 Activ e Assessment Other specified disorders of bone M85.831 Active density and structure, right forearm Assessment Other specified disorders of bone M85.832 Active density and structure, left forearm Problem Other specified disorders of bone M85.831 Active density and structure, right forearm Problem Encounter for long-term (current) Z79.899 Active use of other medications Problem Rheumatoid arthritis of multiple M05.79 Active sites without organ or system involvement with positive rheumatoid factor 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.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 Active analgesic Assessment Arthralgia of multiple joints M25.50 Active Assessment Encounter for long-term (current) Z79.899 Active use of other medications Assessment Rheumatoid arthritis of multiple M05.79 Active sites without organ or system involvement with positive rheumatoid factor Problem Generalized osteoarthrosis, 715.09 Active involving multiple sites Problem Cellulitis and abscess of leg, 682.6 Active except foot Problem Rheumatoid arthritis 714.0 Active Problem 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 Assessment residential (current) use of systemic Z79.52 Active steroids Problem Unspecified essential hypertension 401.9 Active Problem Other pulmonary embolism and I26.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 infarction Medications Medication Code Code Instructions Start End Status Dosage System Date Date [facility] 11507538736 100 MG Orally Active 1 tabl et Once a day Metformin HCl [facility] 58139435019 1000 MG Orally Active 1 tablet twice a day with a meal Chlorthalidone [facility] 20042664180 25 MG Orally Active 1 tablet Once a day in the morning B-12 Compliance [facility] 01772542065 1000 MCG/ML Active 1 ml Injection Injection Methotrexate [facility] 70429002566 25 MG/ML SQ once Active as Sodium a week directed Needle (Disp) [facility] 33983208346 27G X 38 Active as subcutaneously directed once a week with Methotrexate PredniSONE [facility] 31830344819 10 MG Orally Active 1 ta blet Once a day Spironolactone [facility] 14904310852 50 MG Orally Active 1 tablet Twice a day Diamox Sequels [facility] 55069034980 250 mg Orally Active 1 capsule Once a day Syringe [facility] 57701181731 1 ML Jul 11, Active as (Disposable) subcutaneously 2014 dire cted once a week with Methotrexate Centrum Silver [facility] 39246419085 Orally Active not defined Flomax [facility] [address]-51 0.4 MG Orally Active 1 ca psule Once a day 30 minutes after the same meal each day Omeprazole [facility] 85290923649 20 MG Orally Sept Active 1 ca psule Once a day 2016 Protonix [facility] 43318882491 40 MG Orally Active 1 tabl et Once a day Calcium ND 0 200 MG Orally Active not defined Sotalol HCl [facility] 57664424168 120 MG Orally Active 1 tablet every 12 hrs Esomeprazole [facility] [address]-22 Active not Sodium defined Vitamin D [facility] 86460210237 2000 UNIT Orally Active 1 tablet Once a day Carafate [facility] [address]-00 Active not defined Xarelto [facility] 99729525649 20 MG Orally Active not Once a day defined Duloxetine HCl [facility] 72376360853 60 MG Orally Active 1 capsule Twice a day Iron [facility] 53778022319 325 (65 Fe) MG Active 1 tab let Orally Once a day PredniSONE [facility] 71245841138 5 MG Orally Once Active 1 tablet a day Vitamin C [facility] 35472782891 500 MG Orally Active not defined Alendronate [facility] 23119852095 70 MG Orally Oct Active 1 t ablet Sodium once a week 14, 30 minutes 2020 before the first food, beverage or medicine of the day dissolved in 4 ounces of water Lorazepam [facility] 02004412191 1 MG Orally once Active 1 tablet at bed time as needed Folic Acid ND 56913558408 1 MG Orally Once Active 1 tablet a day Hydrocodone-Acet ND 62225277749 10-325 MG Orally Ac tive 1 tablet aminophen every 6 hrs as needed Anakinra [facility] [address]-37 100 MG/0.67ML Inactive as Subcutaneous directed once a day Cimzia Prefilled [facility] 87595254709 2 X 200 MG/ML Dec 07Jun e 1 ml Subcutaneous 2019, every other week 2019 Results No Known Results Summary Purpose eClinicalWorks Submission
--- OUTSIDE RECORDS SUMMARY | 2020-09-03 12:51 | XMS REPORT ---
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
--- OUTSIDE RECORDS SUMMARY | 2020-09-03 12:51 | XMS REPORT ---
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 Active steroids Problem [facility] (current) use of opiate Z79.891 Active analgesic [...] and neck 733.42 Active of femur Assessment [facility] (current) use of systemic Z79.52 Active steroids Problem Unspecified essential hypertension 401.9 Active Problem Other pulmonary embolism and I26.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 infarction Medications Medication Code Code Instructions Start End Status Dosage System Date Date Omeprazole [facility] 56454644860 20 MG Orally Sept Active 1 ca psule Once a day 2016 Iron [facility] 68564532318 325 (65 Fe) MG Active 1 tab let Orally Once a day Promethazine HCl [facility] 24684699147 25 MG Rectal Active 1 every 12 hrs suppository as needed Centrum Silver [facility] 03407415097 Orally Active not d efined B-12 Compliance [facility] 39579229566 1000 MCG/ML Active 1 ml Injection Injection Esomeprazole [facility] [address]-08 Active not d efined Sodium Januvia [facility] 54064811996 100 MG Orally Active 1 tabl et Once a day Lorazepam [facility] 66062453839 1 MG Orally once Active 1 tablet as at bed time needed PredniSONE [facility] 20535158127 20 MG Orally Active 1-3 tablet Once a day Duloxetine HCl [facility] 04858815804 60 MG Orally Active 1 capsule Twice a day Chlorthalidone [facility] 80756369513 25 MG Orally Active 1 tablet in Once a day the morning Spironolactone [facility] 64335878295 50 MG Orally Active 1 tablet Twice a day Sotalol HCl [facility] 22004911460 120 MG Orally Active 1 tablet every 12 hrs Metformin HCl [facility] 32060556203 1000 MG Orally Active 1 tablet twice a day with a meal Restasis [facility] 86486536150 0.05 % Active 1 drop into Ophthalmic Twice affecte d eye a day Protonix [facility] 14215155580 40 MG Orally Active 1 tabl et Once a day Carafate [facility] [address]-40 Active not defin ed Folic Acid [facility] 36044073255 1 MG Orally Once Dec Active 1 tablet a day 2019 Ergocalciferol [facility] 99194467519 1.25 MG (03858 Active 1 capsule UT) Orally Hydrocodone-Acet [facility] 24982433532 10-325 MG Orally Ac tive 1 tablet as aminophen every 6 hrs needed Alendronate [facility] 03225257466 70 MG Orally Dec Active 1 t ablet 30 Sodium once a week 2019 before the first food, beverage or medicine of the day dissolved in 4 ounces of water Flomax [facility] [address]-71 0.4 MG Orally Active 1 ca psule 30 Once a day minutes after the same meal each day Syringe [facility] 76038745586 1 ML Aug 20, Active as directed (Disposable) subcutaneously 2014 once a week with Methotrexate Cimzia [facility] 40985209367 2 X 200 MG Active as direct ed Subcutaneous every 2 weeks Calcium NDC 0 200 MG Orally Active not define d Methotrexate [facility] 68262146221 25 MG/ML Active .8ml Sodium subcutaneously once a week Amitriptyline ND 05068474634 50 MG Orally Active 1 tablet at HCl Once a day bedtime PredniSONE ND 83435189964 10 MG Orally Active 1 ta blet Once a day Needle (Disp) [facility] 01554792414 27G X 3/8 Active as d irected subcutaneously once a week with Methotrexate PredniSONE ND 58325052971 5 MG Orally Once Dec Active 1 tablet a day 2019 Xarelto [facility] 70864957758 20 MG Orally Active not def ined Once a day Vitamin C [facility] 57749575037 500 MG Orally Active not defined Vitamin D [facility] 18477062113 2000 UNIT Orally Active 1 tablet Once a day Diamox Sequels [facility] 60645726479 250 mg Orally Active 1 capsule Once a day Results No Known Results Summary Purpose eClinicalWorks Submission
--- OUTSIDE RECORDS SUMMARY | 2020-09-03 12:52 | XMS REPORT | Continuity of Care Document ---
:1960 Author Organization [facility] Address [address] [place] [address] [address] [place] [address] Care Team Providers Name Role Phone Asked, Given Primary Care Physician Unavailable Nichol IBARRA Attending Clinician Unavailable Payers Payer Name Policy Type Policy Effective Date Expiration Date Sour ce Number MEDICAREMEDICARE PART [id number] 2015 Antonio Bridges AND 00:00:00 [facility] [id number] [place] [place]IGNACIGNA OPEN [id number] 2018 [place] ACCESS/NETWORKxxxxxxx 00:00:00 Met jaun 01220/11/2018[facility] Problems Condition Condition Condition Status Onset Resolution Last Treating Co mments Source Name Details Category Date Date Treatment Clinician Date PAF PAF Disease Active [place] (paroxysma (paroxysma 3-25 Me thodi l atrial l atrial 00:00: st fibrillati fibrillati 00 on) on) Bowel Bowel Disease Active 2017-11 [place] perforatio perforatio 1-14 Me thodi n n 00:00: st 00 Obstructiv Obstructiv Disease Active [facility] e sleep e sleep 19 [facility] apnea apnea 00:00: st 00 Ventral Ventral Disease Active [place] incisional incisional 4-19 Me thodi hernia hernia 00:00: st without without 00 obstructio obstructio n or n or gangrene gangrene History of History of Disease 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 00 Gastroesop Gastroesop Disease Active [facility] hageal hageal - [facility] reflux reflux 00:00: st disease disease 00 without without esophagiti esophagiti s s Status Status Disease Active [place] post post 03-10 [facility] ablation ablation 00:00: st of atrial of atrial 00 fibrillati fibrillati on on Essential Essential Disease Active [facility] ston hypertensi hypertensi 03-10 Me thodi on on 00:00: st 00 Personal Personal Disease Active [place] [facility] embolism embolism 00 History of History of Disease Active H [facility] 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 Meth john thrombosis thrombosis 00:00: st 00 Status Status Disease Active [place] post small post [facility] bowel bowel [facility]: st resection resection 00 Status Status Disease Active [place] post post 03-10 [facility] repair of repair of 00:00: st recurrent recurrent 00 ventral ventral hernia hernia Rheumatoid Rheumatoid Disease Active H [facility] arthritis arthritis 03-10 Meth john 00:00: st 00 Status Status Disease Active [place] post total post [facility] 03[facility]10 [facility] knee [facility] st replacemen replacemen 00 t, left t, left Urethral Urethral Disease Active Overview: Antonio foy stricture stricture 7-05 on Meth john 00:00: tamsulosi st 00 n Acute Acute Disease Active [place] cystitis cystitis 7-05 Method i without without 00:00: st hematuria hematuria 00 Morbid Morbid Disease Active [place] obesity obesity 5-11 [facility] with BMI with BMI 00:00: st of of 00 45.0-49.9, 45.0-49.9, adult adult S/P S/P Disease Active [place] laparoscop laparoscop 5-10 Me thodi ic sleeve ic sleeve 00:00: st gastrectom gastrectom 00 y y Cellulitis Problem Active 2020-09-01 M emoria and 02:45:03 l abscess of Shahid n leg, Cellulitis except and foot abscess of leg, except foot Active Problem 09/01/2020 [facility] Other Problem Active 2020-09-01 Memor ia pulmonary 02:45:03 l embolism Other [place] and pulmonary infarction embolism and infarction Active Problem 09/01/2020 [facility] Aseptic Problem Active 2020-09-01 James jackie necrosis 02:45:03 l of head Aseptic Shahid n and neck necrosis of femur of head and neck of femur Active Problem 09/01/2020 [facility] Rheumatoid Problem Active 2020-09-01 M emoria arthritis 02:45:03 l [place] Rheumatoid arthritis Active Problem 09/01/2020 [facility] Unspecifie Problem Active 2020-09-01 M emoria d 02:45:03 l essential [place] hypertensi Unspecifie on d essential hypertensi on Active Problem 0 [facility] Generalize Problem Active 2020-09-01 M emoria d 02:45:03 l osteoarthr Shahid n osis, Generalize involving d multiple osteoarthr sites osis, involving multiple sites Active Problem 09/01/2020 [facility] nursing home Problem Active 2020-09-01 Me moria (current) 02:45:03 l use of Long [place] opiate term analgesic (current) use of opiate analgesic Active Problem 09/01/2020 [facility] Encounter Problem Active 2020-09-01 Me moria for 02:45:03 l long-term [place] (current) Encounter use of for other long-term medication (current) s use of other medication s Active Problem 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/2020 [facility] 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 2020-09-01 Me moria (current) 02:45:03 l use of Long [place] systemic term steroids (current) use of systemic steroids Active Problem 09/01/2020 [facility] Depressive Problem Active 2020-09-01 M emoria disorder, 02:45:03 l not [place] elsewhere Depressive classified disorder, not elsewhere classified Active Problem 09/01/2020 [facility] Generalize Problem Active 2020-09-01 M emoria d 02:45:03 l osteoarthr Shahid n osis, Generalize involving d multiple osteoarthr sites osis, involving multiple sites Active Problem 09/01/2020 [facility] Rheumatoid Problem Active 2020-09-01 M emoria arthritis 02:45:03 l of [place] multiple Rheumatoid sites arthritis without of organ or multiple system sites involvemen without t with organ or positive system rheumatoid involvemen factor t with positive rheumatoid factor Active Problem 09/01/2020 [facility] Essential Problem Active 2020-09-01 Me moria hypertensi 02:45:03 l on [place] Essential hypertensi on Active Problem 0 [facility] Hematuria, Problem Active 2020-09-01 M emoria unspecifie 02:45:03 l d [place] Hematuria, unspecifie d Active Problem 09/01/2020 [facility] Other Problem Active 2020-09-01 Memor ia specified 02:45:03 l disorders Other Shahid n of bone specified density disorders and of bone structure, density left and forearm structure, left forearm Active Problem 09/01/2020 [facility] Other Problem Active 2020-09-01 Memor ia specified 02:45:03 l disorders Other Shahid n of bone specified density disorders and of bone structure, density right and forearm structure, right forearm Active Problem 09/01/2020 [facility] Acute Diagnosis Active 2019-12-01 Mem oria pyelonephr 03:45:20 l itis Acute [place] pyelonephr itis Active Diagnosis 12/01/2019 [facility] Arthralgia Diagnosis Active 2020-08-01 Memoria of 02:45:36 l multiple [place] joints Arthralgia of multiple joints Active Diagnosis 08/01/2020 [facility] Leukocytos Problem Active 2020-09-01 M emoria is 02:45:03 l [place] Leukocytos is Active Problem 0 [facility] Urinary Diagnosis Active 2020-09-01 Me moria tract 02:45:03 l infection Urinary Herm brian tract infection Active Diagnosis 09/01/2020 [facility] Allergies, Adverse Reactions, Alerts Allergy Allergy Status Severity Reaction(s) Onset Inactive Treating Comm ents Source Name Type Date Date Clinician Ceci Ornelas Active recurrent Memor ia infections 9-08 l 00:00: [place] 00 Latex Latex Active Info Not Memoria Gloves Gloves Available 9-08 l 00:00: [place] 00 Remicade Remicade Active chest pain Me moria 9-08 l 00:00: [place] 00 Demerol Demerol Active vomiting Memori a 9-08 l 00:00: [place] 00 Meperidi Propensi Active GI "severe [place] on ne ty to Intolerance 4-28 vomiting" Me thodi adverse 00:00: st reaction 00 s to drug Latex Propensi Active Anaphylaxis [place] ston ty to 03-19 [facility]i adverse 00:00: st reaction 00 s to drug Inflixim Propensi Active Anaphylaxis [place] ab ty to 03-19 Method[facility] adverse 00:00: st reaction 00 s to drug Family History Family Member Diagnosis Comments Start Date Stop Date Source Natural brother Cirrhosis [facility] ethodist Natural brother Hepatitis [facility] ethodist Natural father Cancer [place] [facility] thodist Natural father Melanoma [facility] thodist Natural mother Cancer [facility] thodist Natural mother Hypertension [place] [facility] Natural mother Lung cancer [facility] ethodist Natural mother Osteoporosis [facility] Social History Social Habit Start Date Stop Date Quantity Comments Source Sex Assigned At [facility] ethodist Tobacco use and 2019-02-17 2019-02-17 Never used [facility] ethodist exposure 00:00:00 00:00:00 Alcohol intake 2019-02-17 2019-02-[address] [facility] thodist 00:00:00 00:00:00 non-drinker of alcohol (finding) Smoking Status Start Date Stop Date Source Never smoker [place] Methodis t Medications Ordered Filled Start Stop Current Ordering Indication Dosage Frequency Signature Comments Components Source Medication Medication Date Date Medication? Clinician (SIG) Name Name Sotalol HCl 2020-0 Yes Brooke 1 tablet M emoria 9-10 [place] l 02:45: [place] 36 Centrum 2020-0 Yes Brooke not Memoria [place] 9-10 [place] defined l 02:45: [place] 36 Flomax 2020-0 Yes Brooke 1 capsule Memor ia 9-10 [place] 30 minutes l 02:45: after the 36 same meal each day Chlorthalid 2020-0 Yes Brooke 1 tablet M emoria one 9-10 [place] in the l 02:45: morning [place] 36 Calcium 2020-0 Yes Brooke not Memoria 9-10 [place] defined l 02:45: [place] 36 Vitamin D 2020-0 Yes Brooke 1 tablet Mem oria 9-10 Vilardo l 02:45: [place] 36 Spironolact 2020-0 Yes Brooke 1 tablet M emoria one 9-10 Vilardo l 02:45: [place] 36 Diamox 2020-0 Yes Brooke 1 capsule Memor ia Sequels 9-10 Vilardo l 02:45: [place] 36 Metformin 2020-0 Yes Brooke 1 tablet Mem oria HCl 9-10 [place] with a l 02:45: meal [place] 36 Lorazepam 2020-0 Yes Brooke 1 tablet Mem oria 9-10 [place] as needed l 02:45: [place] 36 Iron 2020-0 Yes Brooke 1 tablet Memoria 9-10 Vilardo l 02:45: [place] 36 Protonix 2020-0 Yes Brooke 1 tablet James jackie 9-10 Vilardo l 02:45: [place] 36 Carafate 2020-0 Yes Brooke not Memoria 9-10 [place] defined l 02:45: [place] 36 Vitamin C 2020-0 Yes Brooke not Memoria 9-10 [place] defined l 02:45: [place] 36 Xarelto 2020-0 Yes Brooke not Memoria 9-10 [place] defined l 02:45: [place] 36 PredniSONE 2020-0 Yes Brooke 1 tablet Me moria 9-10 Vilardo l 02:45: [place] 36 B-12 2020-0 Yes Brooke 1 ml Memoria Compliance 9-10 Vilardo l Injection 02:45: [place] 36 Esomeprazol 2020-0 Yes Brooke not Memor ia e Sodium 9-10 [place] defined l 02:45: [place] 36 Januvia 2020-0 Yes Brooke 1 tablet Memor ia 9-10 Vilardo l 02:45: [place] 36 Needle 2020-0 Yes Brooke as Memoria (Disp) 9-10 [place] directed l 02:45: Bertrand 36 Duloxetine 2020-0 Yes Brooke 1 capsule M emoria HCl 9-10 Vilardo l 02:45: [place] 36 Hydrocodone 2020-0 Yes Brooke 1 tablet M emoria -Acetaminop 9-10 [place] as needed l hen 02:45: [place] 36 Promethazin 2020-0 Yes Brooke 1 Memor ia e HCl 9-10 [place] suppositor l 02:45: y as Bertrand 36 needed PredniSONE 2020-0 Yes Brooke 1-3 tablet Memoria 9-10 Vilardo l 02:45: Bertrand 36 Restasis 2020-0 Yes Brooke 1 drop Memori a 9-10 [place] into l 02:45: affected 36 eye Ergocalcife 2020-0 Yes Brooke 1 capsule Memoria rol 9-10 Vilardo l 02:45: Cimzia 2020-0 Yes Brooke as Memoria 9-10 [place] directed l 02:45: Methotrexat 2020-0 Yes Brooke .8ml Memor ia e Sodium 9-10 [place] l 02:45: Amitriptyli 2020-0 Yes Brooke 1 tablet M emoria ne HCl 9-10 [place] at bedtime l 02:45: PredniSONE 2020-0 Yes Laila 1 tablet Memoria 9-09 Vo l 00:00: Duloxetine 2020-0 Yes Laila 1 capsule Memoria HCl 9-09 Vo l 00:00: Methotrexat 2020-0 Yes Zay as Me moria e Sodium 7-17 Hola directed l 02:46: PredniSONE 2020-0 Yes Zay 1 tablet Memoria 7-17 Hola l 02:46: Anakinra 2020-0 Yes Zay as Memor ia 7-17 Hola directed l 02:46: Folic Acid 2020-0 Yes Zay 1 tablet Memoria 7-17 Hola l 02:46: Alendronate 2020-0 Yes Edi 1 tablet Memoria Sodium 3-30 Lenard 30 minutes l 02:46: before the first food, beverage or medicine of the day with plain water Cimzia 2020-0 Yes Laila 2 ml Memor ia Starter Kit 2-19 Vo l 00:00: Cimzia 2020-0 Yes Zay 1 ml Memoria Prefilled 1-16 Hola l 00:00: Needle 2020-0 Yes Laila as Memor ia (Disp) 1-10 Vo directed l 03:45: Duloxetine 2020-0 Yes Laila 1 capsule Memoria HCl 1-10 Vo l 03:45: PredniSONE 2019-1 Yes Laila 1 tablet Memoria 0-08 Vo l 00:00: Folic Acid 2019-0 Yes Laila 1 tablet Memoria 8-15 Vo l 00:00: [place] 00 folic acid 2019-0 Yes 1mg QD Take 1 mg [place] (FOLVITE) 1 3-26 by mouth Meth john MG tablet 09:58: daily. st 41 multivitami 2019-0 Yes 1{capsu QD Take 1 [place] n capsule 3-26 le} capsule by Meth john 09:58: mouth st 41 daily. cyanocobala 2019-0 Yes 1000ug Q30D Inject [place] min, 3-26 1,000 mcg Methodi vitamin 09:58: as st B-12, 1,000 41 directed mcg/mL kit every 30 (thirty) days. anakinra 2019-0 Yes 100mg Inject 100 [place] (KINERET) 3-26 mg under Method i 100 mg/0.67 09:58: the skin st mL syringe 41 daily. methotrexat 2019-0 Yes 20mg Q1W Inject 20 [place] e, PF, 20 3-26 mg under Method i mg/0.4 mL 09:58: the skin st auto-inject 41 every 7 or days. rivaroxaban 2019-0 Yes 20mg QD Take 20 mg Nicolas (XARELTO) 3-26 by mouth Method i 20 mg 09:58: daily. st tablet 41 sotalol 2019-0 Yes 120mg Q.5D Take 120 [place] on (BETAPACE) 3-26 mg by Methodi 120 MG 09:58: mouth 2 st tablet 41 (two) times a day. chlorthalid 2019-0 Yes 25mg QD Take 25 mg Nicolas one 3-26 by mouth Methodi (HYGROTEN) 09:58: daily. st 25 MG 41 tablet spironolact 2019-0 Yes 50mg Q.5D Take 50 mg Nicolas one 3-26 by mouth 2 Methodi (ALDACTONE) 09:58: (two) st 50 MG 41 times a tablet day. acetaZOLAMI 2019-0 Yes 250mg Take 250 [place] (DIAMOX) 3-26 mg by Methodi 250 MG 09:58: mouth st tablet 41 daily. DULoxetine 2019-0 Yes 120mg QD Take 120 [place] (CYMBALTA) 3-26 mg by Methodi 60 MG 09:58: mouth st capsule 41 daily. pantoprazol 2019-0 Yes 40mg QD Take 40 mg Nicolas e 3-26 by mouth Methodi (PROTONIX) 09:58: daily. st 40 MG EC 41 tablet sucralfate 2019 2020- No 1g [id number] Take 1 Nicolas (CARAFATE) 02-14 [id number] tablet (1 Methodi 1 gram 00:00: 23:59 3D g total) st tablet 00 :00 by mouth 3 (three) times a day before meals. Omeprazole 2016- Yes Brooke 1 capsule M emoria 9-07 [place] l 00:00: [place] 00 Syringe 2014-0 Yes Brooke as Memoria (Disposable 8-20 [place] directed l ) 00:00: [place] 00 Vital Signs Vital Name Observation Time Observation Value Comments Source Weight 2019-10-05 16:30:00 [facility] Height 2019-10-05 16:30:00 [facility] Heart Rate 2019-10-05 16:30:00 [facility] Diastolic (mm Hg) 2019-10-05 16:30:00 [facility] Systolic (mm Hg) 2019-10-05 16:30:00 Jameswanda finn [place] Procedures Procedure Date / Time Performed Performing Clinician Sourc e SARS-COV2/RT-PCR ([facility] 2020-04-16 21:45:00 [facility] Plan of Care Planned Activity Planned Date Details Comments Source Future Scheduled 2020-06-22 INFLUENZA VACCINE [place] Test 00:00:00 [code = INFLUENZA VACCINE] Future Scheduled 2011 COLONOSCOPY SCREENING [place] [facility] Test 00:00:00 [code = COLONOSCOPY SCREENING] Future Scheduled 2011 SHINGLES VACCINES [place] [facility] Test 00:00:00 (#1) [code = SHINGLES VACCINES (#1)] Medication 2020-10-28 Folic Acid [code = [facility] 00:00:00 [id number]] Medication 2020-10-28 Alendronate Sodium [facility] 00:00:00 [code = 29155203659] Medication 2020-10-28 PredniSONE [code = [facility] 00:00:00 [id number]] Medication 2020-09-04 Alendronate Sodium [facility] [place] 00:00:00 [code = 93897413336] Encounters Start End Encounter Admission Attending Care Care Encounter Source Date/Time Date/Time Type Type Clinicians Facility Department ID 2020-08-28 2020-08-28 Outpatient [facility]BIE - BARBIE - [id number] eClinic 16:54:00 16:54:00 [facility] 2020-07-30 2020-07-30 Outpatient BARBIE - BARBIE - [id number] eClinic 23:55:00 23:55:00 [facility] 2020-07-30 2020-07-30 Outpatient BARBIE - BARBIE - [id number] eClinic 14:12:00 14:12:00 [facility] 2020-07-30 2020-07-30 Outpatient PRL - PRL - [id number] eClinic 10:30:00 10:30:00 [facility] 2020-04-30 2020-04-30 Outpatient BARBIE - BARBIE - [id number] eClinic 13:30:00 13:30:00 [facility] 2020-04-20 2020-04-20 Outpatient BARBIE - BARBIE - [id number] eClinic 17:01:00 17:01:00 [facility] 2020-03-07 2020-03-07 Outpatient BARBIE - BARBIE - [id number] eClinic 01:03:00 01:03:00 [facility] 2020-02-13 2020-02-13 Outpatient Rheumatol Rheumatolog 1 [id number] eClinic 10:45:00 10:45:00 ogy y [facility] 2020-01-03 2020-01-03 Outpatient PRL - PRL - [id number] eClinic 15:58:00 15:58:00 [facility]umat[facility] 2019-12-05 2019-12-05 Outpatient BARBIE - BARBIE - [id number] eClinic 11:53:00 11:53:00 [facility] 2019-10-27 2019-10-27 Outpatient [id number] eClinic 10:30:00 10:30:00 [id number] alWorks [id number] 2019-10-24 2019-10-24 Outpatient BARBIE - BARBIE - [id number] eClinic 09:55:00 09:55:00 [facility]umatol [facility] 2019-10-16 2019-10-16 Outpatient BARBIE - BARBIE - [id number] eClinic 11:56:00 11:56:00 [facility]umat[facility] 2019-10-05 2019-10-05 Outpatient PRL - PRL - [id number] eClinic 10:30:00 10:30:00 [facility]umat[facility] 2019-09-22 2019-09-22 Outpatient BARBIE - BARBIE - [id number] eClinic 09:59:00 09:59:00 Rheumatol [facility] 2019-07-18 2019-07-18 Outpatient BARBIE - BARBIE - [id number] eClinic 10:42:00 10:42:00 [facility]umat[facility] 2019-06-27 2019-06-27 Outpatient BARBIE - BARBIE - [id number] eClinic 14:54:00 14:54:00 [facility]umatol [facility] 2019-03-17 2019-03-17 Outpatient BARBIE - BARBIE - [id number] eClinic 14:14:00 14:14:00 Rheumatol [facility] 2019-02-28 2019-02-28 Outpatient BARBIE - BARBIE - [id number] eClinic 21:52:00 21:52:00 Rheumatol [facility] Results Test Description Test Time Test Comments Results Result Comments Source SARS-CoV2/RT-PCR ([facility]) 2020-04-17 00:19:00 Test Item Value Reference Range Interpretation Comme nts SARS-COV2/RT-PCR (test code = Not Detected Not Detected, Negative 59227-4) SARS-COV-2 PERFORMING LAB [facility] (test code = 92720-8) CONOR (test code = CONOR) Negative results do not preclude SARS-CoV-2 infection and should not be used as [...] of the Act. Fact Sheet for Healthcare Providers:https://www.[employer]/Documents/Xpert%20Xpress %20SARS%20CoV-2/Fact%20Sheets /3023802%40NGUW-IKH-6%20HEAL THCARE%20PROVIDERS%20FACT%20S HEET.pdf Fact Sheet for Healthcare Patients:https://www.PatientFocus/Documents/Xpert%20Xpress% 20SARS%20CoV-2/Fact%20Sheets/ 3023801%10OTTW-ZNM-2%20PATIE NT%20FACT%20SHEET.pdf Performing Laboratory:[facility] [place] [address] [facility])2020-04-17 00:19:00 Test Item Value Reference Range Interpretation Comments SARS-COV2/RT-PCR (test Not Detected Not Detected, Negative code = 3526105) SARS-COV-2 PERFORMING LAB [facility] (test code = 4137508) Negative results do not preclude SARS-CoV-2 infection and should not be used as the sole basis for patient management decisions. Negative results must be combined with clinical observations, patient history, and epidemiological information. A false negative result may occur if a specimen is improperly collected, transported or handled.The limit of detection for this assay is 250 copies/mL.This SARS CoV-2 test is a rapid, real-time RT-PCR test intended for the qualitative detection of nucleic acid from SARS-CoV-2 in a nasopharyngeal swab specimen collected from individuals suspected of COVID-19 by their healthcare provider.This test has not been Food and Drug [...] is revoked under Section 564(g) of the Act.Fact Sheet for Healthcare Pro viders:https://www.[employer]/Documents/Xpert%20Xpress%20SARS%20CoV-2/Fact%20Sh eets/302-3802%47KMSL-ZWQ-8%20HEALTHCARE%20PROVIDERS%20FACT%20SHEET.pdfFact Sheet for Healthcare Patients:https://www.TH[employer]AT STREAM id.[employer]/Documents/Xpert%20Xpress%20SARS%20CoV-2/Fact%20Sheets/302-3801%20SARS-COV -2%20PATIENT%20FACT%20SHEET.pdfPerforming Laboratory:[facility] [place] [address]
--- OUTSIDE RECORDS SUMMARY | 2020-09-03 12:52 | XMS REPORT ---
:1960 Author Organization eClinicalWorks Care Team Providers Name Role Phone Laila Barrios Provider Role Unavailable Allergies No Known Allergies Problems Problem Type Condition Code Onset Dates Condition Statu s Problem Depressive disorder, not elsewhere F32.9 Active classified Problem Rheumatoid arthritis of multiple M05.79 Active sites without organ or system involvement with positive rheumatoid factor Problem Essential hypertension I10 Activ e Problem Other specified disorders of bone M85.831 Active density and structure, right forearm Problem Other specified disorders of bone M85.832 Active density and structure, left forearm Problem Leukocytosis D72.829 Active Problem 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 Problem Encounter for long-term (current) Z79.899 Active use of other medications Problem Hematuria, unspecified R31.9 Activ e Problem 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 Z79.52 Active steroids Problem Rheumatoid arthritis 714.0 Active Assessment Urinary tract infection N39.0 Acti ve Assessment Leukocytosis D72.829 Active Problem Cellulitis and abscess of leg, 682.6 Active except foot Problem 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
[2020-09-03 13:14] VITALS: BMI 37.8
[2020-09-03] MEDS ORDERED: INFLUENZA VACCINE (for 3y+) 0.5 ML DOSE IMVAC ONE (14:00)
[2020-09-03 18:18] LABS: Absolute Lymphocytes (CBC) 0.8 K/uL (0.7-4.9); Basophils % 0.1 % (0-1.3); Hematocrit 29.8 % (39.6-49.0); MPV 8.8 fL (7.6-11.3)
[2020-09-03] MEDS: Meropenem 1,000 MG in NA CHLORIDE 0.9% 100 ML IV SCH (18:20)
[2020-09-03 18:33] LABS: Albumin 3.4 g/dL (3.4-5.0); Bilirubin Total 0.2 mg/dL (0.2-1.0); Magnesium 2.1 mg/dL (1.8-2.4); Protein, Total 5.9 g/dL (6.4-8.2)
[2020-09-03 19:30] LABS: Basophilic Stippling 1+; Blood Morphology Comment NOTED (NOT SEEN); Platelet Estimate ADEQ
[2020-09-03] MEDS: DULOXETINE 30 MG CAP PO SCH (20:14)
[2020-09-03] MEDS: SOTALOL HCL 80 MG TAB PO SCH (20:14)
[2020-09-03] MEDS: SENOSIDES 8.6 MG TAB PO SCH (20:14)
[2020-09-03] MEDS: HYDROCODONE/APAP 10/325 TAB PO PRN (20:14)
[2020-09-03] MEDS: MAGNESIUM OXIDE 400 MG TAB PO SCH (20:15)
[2020-09-03] MEDS: SPIRONOLACTONE 25 MG TABLET PO SCH (20:15)
[2020-09-03 20:48] LABS: Urine Appearance CLEAR; Urine Bilirubin NEGATIVE (NEG); Urine Blood NEGATIVE (NEG); Urine Color YELLOW; Urine Glucose NEGATIVE (NEG); Urine Protein NEGATIVE (NEG); Urine Urobilinogen 0.2 mg/dL (0.2-1.0); Urine pH 5.5 (5.0-7.0)
[2020-09-03] MEDS: HOME MED 1 EA UNK (Cyclosporine [Restasis] 1 GTT) EACH EYE SCH (21:00)
[2020-09-03] MEDS ORDERED: LACTULOSE 20 GM/30 ML UCUP PO PRN (21:00)
[2020-09-03] MEDS ORDERED: Meropenem 1000 MG/VIAL IV SCH (21:00)
[2020-09-03 21:27] LABS: Urine Bacteria >50 /HPF (NONE SEEN); Urine Culture Reflex Order REFLEXED; Urine RBC NONE SEEN /HPF (NONE SEEN)
--- NOTE | 2020-09-03 21:49 | HP ---
Date of Admission: 09/03/2020 Chief Complaint: Flank pain, burning on urination. History Of Present Illness: This is a 59-year-old pleasant male patient who has history of urethral stricture, recurrent urinary tract infection, recently had outpatient urinalysis and urine culture done, which came back growing E coli and it is ESBL. The patient contacted me with this information as this test was done by his contract technical writer and he provided me with this information yesterday, and after I reviewed that result, decision was made to admit him to the hospital. He has low-grade fever in last few days, has burning sensation on urination and flank pain. He also has had some nausea and vomiting in last few days. Arrangements were made for him to be admitted to the hospital today for further evaluation and management of this problem. His white count last week was 15,000 with left shift. Allergies: TO DEMEROL, REMICADE, AND LATEX. Medications: List reviewed. Review of Systems: Genitourinary: As mentioned above. Constitutional: As mentioned above. All other systems reviewed and negative. Past Medical History: Significant for allergic rhinitis, type 2 diabetes mellitus, obstructive sleep apnea, chronic respiratory failure with hypercapnia, and he is using noninvasive ventilator at home, hypertension, chronic atrial fibrillation on chronic anticoagulation therapy, gastroesophageal reflux disease, Crohn disease, urethral stricture, leg edema, rheumatoid arthritis, anemia, depression. Past Surgical History: Ablation for atrial fibrillation, exploratory laparotomy, orchiectomy on the right side for testicular cancer, cervical spine surgery, wrist fracture surgery, left hip surgery, and arthroscopic knee surgery. Family History: Father had melanoma. Mother; COPD, peripheral vascular disease. Brother; hypertension. Social History: Negative for smoking and alcohol use. Physical Examination: Vital Signs: Height 6 feet, 2 inches, weight 295 pounds, temperature 96.9 F, pulse 75, blood pressure 94/53, respiratory rate 14, oxygen saturation 97%. General: Awake, alert, oriented, not in distress. HEENT: Head atraumatic, normocephalic. Conjunctivae nonerythematous. Sclerae white. Mouth, no thrush or edema noted. Ears/Nose, no mass, lesion, discharge noted. Neck: Supple. No JVD, lymph nodes, bruit, thyromegaly noted. Lungs: Bilateral good equal air entry. Clear to auscultation. No rhonchi. No rales. Heart: Normal heart sounds, no murmur or gallop. Abdomen: Soft. Presence of ventral abdominal wall hernia. No guarding, rigidity, but presence of tenderness in the right anterior and posterior flank region. Extremities: Left leg has grade 1 edema. Skin: No rash, ulcer, cellulitis. Lymphatics: No lymph node enlargement in neck, supraclavicular, infraclavicular region. Neuro: No focal neurological deficit. Chest: Unremarkable. External Genitalia: Deferred. Rectal: Deferred. Laboratory Data: Outpatient urinalysis showed nitrite positive. I do not have a complete urinalysis results available. His urine culture results reviewed from 08/26/2020 had shown E coli, which is ESBL. His hemoglobin A1c from 08/26/2020 was 5.7. Liver function tests normal. TSH 0.91, and chemistry was unremarkable with BUN 28, creatinine 0.96, glucose 136. Today white count 10.3, hemoglobin 9.8, platelets 253. Sodium 135, potassium 4, chloride 100, bicarb 32, BUN 36, creatinine 1.33, glucose 154. Liver function tests unremarkable. Impression: 1. Acute pyelonephritis, organism extended-spectrum beta-lactamases. 2. Volume depletion. 3. Chronic steroid therapy. 4. Chronic anticoagulation therapy. 5. Chronic atrial fibrillation. 6. Type 2 diabetes mellitus. 7. Hypertension. 8. Rheumatoid arthritis. 9. Crohn disease. 10. Urethral stricture. 11. Obstructive sleep apnea. 12. Chronic respiratory failure with hypercapnia. 13. Gastroesophageal reflux disease. 14. Anemia. 15. Depression. Plan: Admit the patient to hospital for further evaluation and management of this problem. The patient is appropriate for inpatient and is expected to spend 2 midnights in hospital. We will continue home medications per order. IV meropenem will be started 1 g every 12 hours and we will access his Port-A-Cath and use that for IV access. Tomorrow, we will consult Social Service to help make arrangements for IV antibiotics to be continued at home. He has left leg edema with some pain in the left medial thigh lately in the last few days. We will go ahead and order venous Doppler to rule out DVT. He is on Xarelto 20 mg daily and he reports that he has been taking it on a daily basis. Details and plan of treatment discussed with the patient. JORDAN/MODL Voice ID: [id number] MTDD
[2020-09-04] MEDS: PANTOPRAZOLE 40MG TABLET PO SCH (05:43)
[2020-09-04] MEDS: HYDROCODONE/APAP 10/325 TAB PO PRN ×4 (06:09→20:20)
[2020-09-04] MEDS ORDERED: RIVAROXABAN 10 MG TABLET PO SCH (09:00)
[2020-09-04] MEDS: HOME MED 1 EA UNK (Cyclosporine [Restasis] 1 GTT) EACH EYE SCH (09:00)
[2020-09-04] MEDS: PROMETHAZINE INJ 25 MG/ML AMP IV PRN ×3 (09:39→20:23)
[2020-09-04] MEDS: Meropenem 1,000 MG in NA CHLORIDE 0.9% 100 ML IV SCH ×2 (09:40→20:18)
[2020-09-04] MEDS: MAGNESIUM OXIDE 400 MG TAB PO SCH ×2 (09:41→20:18)
[2020-09-04] MEDS: acetaZOLAMIDE 250 MG TAB PO SCH (09:41)
[2020-09-04] MEDS: SPIRONOLACTONE 25 MG TABLET PO SCH ×2 (09:41→20:18)
[2020-09-04] MEDS: CHLORTHALIDONE 25 MG TAB PO SCH (09:41)
[2020-09-04] MEDS: MULTIVITAMIN TAB PO SCH (09:41)
[2020-09-04] MEDS: FOLIC ACID 1 MG TABLET PO SCH (09:41)
[2020-09-04] MEDS: DULOXETINE 30 MG CAP PO SCH ×2 (09:41→20:18)
[2020-09-04] MEDS: SOTALOL HCL 80 MG TAB PO SCH ×2 (09:42→20:18)
[2020-09-04] MEDS: predniSONE 5 MG TAB PO SCH (09:42)
[2020-09-04] MEDS: SENOSIDES 8.6 MG TAB PO SCH ×2 (09:42→20:18)
[2020-09-04] MEDS: modafiniL 100 MG TAB PO SCH (09:42)
[2020-09-04] MEDS: SITAGLIPTIN PHOS 100 MG TAB PO SCH (09:42)
--- NOTE | 2020-09-04 09:44 | PN ---
Date of Progress Note: 09/04/2020 Subjective: The patient was seen this morning for followup. He was lying in bed, not in any distres s. His was with him at bedside. No new complaints or problems reported by him. Flank pain is somewhat better this morning compared to yesterday. Objective: Vital Signs: Reviewed. HEENT: Examination unremarkable. Lungs: Clear to auscultation. Heart: Sounds normal. Abdomen: Soft. Bowel sounds normal. No guarding, rigidity, tenderness, distention except flank geri n. Extremities: Left leg edema remains unchanged compared to last night. Impression: 1.Acute pyelonephritis, organism Escherichia coli, extended spectrum beta-lactamases. 2.Atrial fibrillation, chronic. 3.Chronic anticoagulation therapy. 4.Left leg edema, rule out deep vein thrombosis. 5.Anemia. 6.Chronic respiratory failure with hypercapnia. Plan: We will go ahead and continue current medications. Continue Xarelto. Patient reports that he has been very compliant with Xarelto and has not missed any dose, so we will order venous Doppler, a nd if he has a DVT, then we will have to address change of anticoagulation therapy for him. Meanwhil e, we will continue current medications. Continue meropenem. Consult Social Service to assist with home IV antibiotic therapy. JORDAN/MODL Voice ID: [id number] Report ID: [id number]
--- NOTE | 2020-09-04 11:48 | RAD REPORT ---
EXAM DESCRIPTION: US - Extrem Venous W Compress Branden - 09/04/2020 10:23 am CLINICAL HISTORY: rule out DVT COMPARISON: None. TECHNIQUE: Real-time sonographic evaluation of the bilateral lower extremity common femoral, superfi cial femoral, popliteal and posterior tibial veins was performed. FINDINGS: Normal compressibility, flow augmentation, phasic flow and spontaneous flow are identified in the right lower extremity common femoral, superficial femoral, popliteal and posterior tibial vei ns. No intraluminal filling defects seen. Old thrombus changes are identified in the left common femoral, superficial femoral and popliteal vei ns. Vessels are still compressible with blood flow present. No acute thrombus changes identifiable. IMPRESSION: No acute DVT in either lower extremity. Old thrombus remains in the left lower extremity deep veins.
--- NOTE | 2020-09-04 15:39 | RAD REPORT ---
EXAM DESCRIPTION: Merylt Single View09/04/2020 3:30 pm CLINICAL HISTORY: Shortness of breath COMPARISON: March 2020 FINDINGS: A central venous line has its tip in the superior vena cava Probably are mild bilateral interstitial pulmonary opacities. This could represent mild interstitial pulmonary edema or pneumonitis The heart is upper limits normal size
[2020-09-04] MEDS: RESTASIS OPTH SCH (20:53)
[2020-09-05] MEDS: HYDROCODONE/APAP 10/325 TAB PO PRN ×6 (01:47→22:29)
[2020-09-05] MEDS: PROMETHAZINE INJ 25 MG/ML AMP IV PRN ×6 (01:47→22:29)
[2020-09-05] MEDS: PANTOPRAZOLE 40MG TABLET PO SCH (06:22)
[2020-09-05] MEDS: MAGNESIUM OXIDE 400 MG TAB PO SCH ×2 (08:26→21:49)
[2020-09-05] MEDS: SITAGLIPTIN PHOS 100 MG TAB PO SCH (08:26)
[2020-09-05] MEDS: MULTIVITAMIN TAB PO SCH (08:26)
[2020-09-05] MEDS: modafiniL 100 MG TAB PO SCH (08:26)
[2020-09-05] MEDS: SENOSIDES 8.6 MG TAB PO SCH ×2 (08:26→21:49)
[2020-09-05] MEDS: SOTALOL HCL 80 MG TAB PO SCH ×2 (08:27→21:52)
[2020-09-05] MEDS: DULOXETINE 30 MG CAP PO SCH ×2 (08:27→21:49)
[2020-09-05] MEDS: FOLIC ACID 1 MG TABLET PO SCH (08:27)
[2020-09-05] MEDS: predniSONE 5 MG TAB PO SCH (08:27)
[2020-09-05] MEDS: acetaZOLAMIDE 250 MG TAB PO SCH (08:27)
[2020-09-05] MEDS: RIVAROXABAN 20 MG TABLET PO SCH (08:27)
[2020-09-05] MEDS: RESTASIS OPTH SCH ×2 (08:28→21:00)
[2020-09-05] MEDS: Meropenem 1,000 MG in NA CHLORIDE 0.9% 100 ML IV SCH ×2 (08:29→21:49)
[2020-09-05 10:05] LABS: Arterial Blood Carboxyhemoglob 1.4 % (0-1.5); Blood Gas Oxyhemoglobin 91.9 % (94-97); Blood O2 Saturation 94.5 % (92-98.5)
[2020-09-05] MEDS: SPIRONOLACTONE 25 MG TABLET PO SCH ×2 (10:23→21:49)
[2020-09-05] MEDS: METHYLPREDNISOLONE 40 MG INJ IV SCH ×2 (10:23→21:47)
[2020-09-05] MEDS: CHLORTHALIDONE 25 MG TAB PO SCH (10:23)
--- NOTE | 2020-09-05 10:33 | RAD REPORT ---
EXAM DESCRIPTION: CT - Thorax Wo Con CLINICAL HISTORY: Chest pain Dyspnea COMPARISON: Chest Abd Pelvis Wo Con dated 03/11/2019; Chest Single View dated 09/04/2020 FINDINGS: Linear subsegmental atelectasis is present in the medial right lung base. The lungs are cl ear acute infiltrate. No pleural thickening or pleural effusion. No pneumothorax. No axillary, mediastinal or hilar adenopathy. No concerning bony finding. All CT scans are performed using dose optimization technique as appropriate and may include automated exposure control or mA/KV adjustment according to patient size. IMPRESSION: Mild linear subsegmental atelectasis in the right lung base.
[2020-09-06] MEDS: PROMETHAZINE INJ 25 MG/ML AMP IV PRN ×6 (02:29→22:25)
[2020-09-06] MEDS: HYDROCODONE/APAP 10/325 TAB PO PRN ×6 (02:29→22:24)
[2020-09-06] MEDS: PANTOPRAZOLE 40MG TABLET PO SCH (06:22)
[2020-09-06] MEDS: SITAGLIPTIN PHOS 100 MG TAB PO SCH (08:33)
[2020-09-06] MEDS: Meropenem 1,000 MG in NA CHLORIDE 0.9% 100 ML IV SCH ×2 (08:33→21:14)
[2020-09-06] MEDS: MAGNESIUM OXIDE 400 MG TAB PO SCH ×2 (08:34→21:13)
[2020-09-06] MEDS: DULOXETINE 30 MG CAP PO SCH ×2 (08:34→21:14)
[2020-09-06] MEDS: RIVAROXABAN 20 MG TABLET PO SCH (08:34)
[2020-09-06] MEDS: SOTALOL HCL 80 MG TAB PO SCH ×2 (08:34→21:12)
[2020-09-06] MEDS: acetaZOLAMIDE 250 MG TAB PO SCH (08:34)
[2020-09-06] MEDS: MULTIVITAMIN TAB PO SCH (08:34)
[2020-09-06] MEDS: RESTASIS OPTH SCH ×2 (08:35→21:00)
[2020-09-06] MEDS: SENOSIDES 8.6 MG TAB PO SCH ×2 (08:35→21:12)
[2020-09-06] MEDS: FOLIC ACID 1 MG TABLET PO SCH (08:35)
[2020-09-06] MEDS: METHYLPREDNISOLONE 40 MG INJ IV SCH ×2 (08:35→21:12)
[2020-09-06] MEDS: CHLORTHALIDONE 25 MG TAB PO SCH (08:37)
[2020-09-06] MEDS: modafiniL 100 MG TAB PO SCH (09:58)
[2020-09-06] MEDS: SPIRONOLACTONE 25 MG TABLET PO SCH ×2 (09:58→21:13)
[2020-09-06] MEDS: ARFORMOTEROL TARTRATE 15 MCG/2 ML VIAL.NEB NEB SCH ×2 (11:43→20:05)
[2020-09-06 12:10] LABS: Arterial Blood Carboxyhemoglob 1.1 % (0-1.5); Blood Gas Oxyhemoglobin 91.8 % (94-97); Blood O2 Saturation 94.1 % (92-98.5)
--- NOTE | 2020-09-06 12:10 | P.CNS ---
Date of Consult: 09/05/20 Reason for Consult: Shortness of breath Chief Complaint: Shortness of breath History of Present Illness: Patient is 59 years of age recurrent hospital admissions has been complaining of progressive dyspnea he does have a noninvasive ventilator at home when he has to keep on med for a long time on a daily basis feels very short of breath complaining of orthopnea no fever chills no lower extremity edema no cough or chest pain no fever or chills patient is compliant with his medication also complains of excessive daytime somnolence side recently started him on Provigil patient is fully anti coagulated with Xarelto Allergies infliximab [From Remicade] Allergy (Severe, Verified 09/14/19 23:19) Anaphylaxis latex Allergy (Severe, Verified 09/14/19 23:19) Anaphylaxis Latex, Natural Rubber Allergy (Severe, Verified 09/14/19 23:19) Anaphylaxis meperidine HCl [From Demerol] Adverse Reaction (Intermediate, Verified 09/14/19 23:19) Nausea/Vomiting gabapentin Adverse Reaction (Verified 09/03/20 13:50) Nausea/Vomiting pregabalin Adverse Reaction (Verified 09/03/20 13:50) Nausea/Vomiting tamsulosin Adverse Reaction (Verified 09/03/20 13:50) Nausea/Vomiting Home Medications: Chlorthalidone [Hygroton 25mg Tab*] 25 mg PO DAILY 01/15/20 Duloxetine [Cymbalta *] 60 mg PO BID 01/15/20 Esomeprazole Mag Trihydrate [Nexium] 40 mg PO DAILY 01/15/20 Folic Acid 1 mg PO DAILY 01/15/20 Hydrocodone 10/APAP 325 [Lincoln 10/325*] 1 - 2 tab PO Q4H PRN 01/15/20 Methotrexate Sodium/Pf [Methotrexate 50 mg/2 ml Vial] 0.8 ml SQ EVERY 7TH DAY 01/15/20 Rivaroxaban [Xarelto*] 20 mg PO DAILY 01/15/20 Sotalol HCl [Sotalol] 120 mg PO BID 01/15/20 Spironolactone [Aldactone*] 50 mg PO BID 01/15/20 acetaZOLAMIDE [Diamox*] 250 mg PO DAILY 01/15/20 predniSONE [Prednisone*] 15 mg PO DAILY 01/15/20 Lactulose 30 ml PO SEECOM PRN 02/17/20 Metformin HCl [Glucophage] 1,000 mg PO BID 04/04/20 Sitagliptin Phosphate [Januvia*] 100 mg PO DAILY 04/04/20 Alendronate Sodium 70 mg PO Q7D 04/05/20 Calcium Carbonate/Vitamin D3 [Caltrate 600 Plus D3 Tablet] 1 tab PO BID 04/05/20 Cimza 100 mcg SQ SEECOM 04/05/20 Ergocalciferol (Vitamin D2) [Vitamin D 50,000 Unit Cap] 50,000 units PO Q7D 04/05/20 Multivitamin 1 tab PO DAILY 04/05/20 Magnesium Oxide [Mag 0X Tab] 400 mg PO BID #60 tab 04/06/20 Cyclosporine [Restasis] 1 gtt EACH EYE BID 09/03/20 Modafinil [Provigil] 400 mg PO DAILY 09/03/20 Sennosides [Senokot] 2 tab PO BID 09/03/20 - Past Medical/Surgical History Diabetic: Yes -: PE, DVT, RA -: SINUS TACHYCARDIA -: AVASCULAR NECROSIS OF LEFT and right HIP -: GERD -: CROHN'S, CHRONIC ANEMIA -: AFIB, SBO, VENTRAL HERNIA -: URETHRAL STRICTURE -: TESTICULAR CA 1985 -: MORBID OBESITY -: ACUTE CYSTITIS -: OBS SLEEP APNEA -: renal insuff 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 -: L & R HIP REPLACEMENT -: L KNEE REPLACEMENTS/DEBRIDEMENTS/ETC -: L knee spacer abx -: 30 yrs ago retroperitoneal lymph node dissection -: R SIDED ORCHIECTOMY -: L HIP REPLACEMENT, R WRIST FRACTURE -: gastric sleeve 2017, Multiple (over 15) abd surg, Bowel resection x4 -: Abdominal Abscess and wound vac - Family History Brother Medical History: Heart disease, Hypertension, Cancer, Liver disease Mother Medical History: Hypertension, Stroke, Cancer Notes: Lung Cancer Father Medical History: Stroke, Cancer, Other (see notes) Notes: Melanoma - Social History Smoking Status: Unknown if ever smoked Alcohol use: No CD- Drugs: No Caffeine use: Yes Place of Residence: Home Review of Systems General: Weakness Respiratory: Shortness of Breath Physical Examination Temp Pulse Resp BP Pulse Ox 97 F 68 18 107/70 97 09/06/20 08:00 09/06/20 09:58 09/06/20 10:30 09/06/20 09:58 09/06/20 10:30 General: Alert, Oriented x3, Mild distress Neck: Supple Respiratory: Clear to auscultation bilaterally, Diminished Cardiovascular: Normal S1 S2, Edema Gastrointestinal: Normal bowel sounds, Soft and benign - Problems (1) Respiratory failure Current Visit: Yes Status: Acute Plan: Patient is 59 years of age with a history of obstructive sleep apnea a noninv asive ventilator which is 100% compliant has been complaining of dyspnea with orthopnea recent blood gases on a noninvasive ventilator on room air shows mild hypercapnia and mild hypoxemia CT scan without contrast does not show any interstitial lung disease mild acute renal insufficiency mild anemia will plan to increase the dose of Solu-Medrol for now patient has ESBL in the urine and is on meropenem Qualifiers: Chronicity: acute on chronic
--- NOTE | 2020-09-06 12:14 | P.PN ---
Subjective Date of Service: 09/06/20 Chief Complaint: Shortness of breath No change still complaining of shortness of breath Review of Systems General: Weakness Respiratory: Shortness of Breath Physical Examination - Vital Signs Temperature: 97 F Blood Pressure: 107/70 Pulse: 68 Respirations: 18 Pulse Ox (%): 97 - Physical Exam General: Alert, Oriented x3, Mild distress Respiratory: Clear to auscultation bilaterally, Diminished - Studies Microbiology Data (last 24 hrs): 09/03/20 19:50 Catheterized Urine - Final Escherichia Coli Esbl Escherichia Coli Assessment And Plan - Current Problems (Diagnosis) (1) Respiratory failure Current Visit: Yes Status: Acute Plan: Patient is still complaining of shortness of breath CT scan no evidence of interstitial lung disease the recheck arterial blood gases on room air off BiPAP continuous pulse ox trial of bronchodilators patient has ESBL on meropenem labs ordered keep including tsh bronchodilators added Qualifiers: Chronicity: acute on chronic
[2020-09-06 14:11] LABS: Lymphocytes % 10.2 % (15.3-44.8); MPV 8.3 fL (7.6-11.3); RBC Red Blood Cell Count 3.11 M/uL (4.33-5.43)
[2020-09-06] MEDS: IPRATROPIUM BROM 0.5MG/2.5ML NEB SCH ×2 (14:16→20:05)
[2020-09-06 14:24] LABS: Albumin 3.2 g/dL (3.4-5.0); Bilirubin Total 0.2 mg/dL (0.2-1.0); Potassium 4.6 mmol/L (3.5-5.1); Protein, Total 6.3 g/dL (6.4-8.2); Thyroid Stimulating Hormone 0.19 uIU/mL (0.360-3.740)
--- NOTE | 2020-09-06 14:28 | PN ---
Date of Progress Note: 09/05/2020 Subjective: The patient was seen this morning for followup. No new complaints or problems reported. He still feels like his breathing is not like what it was before. In last 2 to 3 weeks, he is havi ng more shortness of breath. He is not coughing up any mucus. Objective: HEENT: Examination unremarkable. Lungs: Clear to auscultation. Heart: Sounds normal. Abdomen: Soft. Bowel sounds normal. No guarding, rigidity, tenderness, distention. Extremities: Left leg edema better than before. No edema on right leg. Laboratory Data: Today, blood gas; pH 7.39, pCO2 52.4, PO2 68.9, oxygen saturation 94.5% on room air . CAT scan of the chest shows mild linear subsegmental atelectasis at right lung base. Impression: 1.Acute pyelonephritis, organism Escherichia coli, extended spectrum beta-lactamase. 2.Chronic respiratory failure with hypercapnia. 3.Atrial fibrillation. 4.Chronic anticoagulation therapy. 5.Chronic steroid therapy. Plan: We will go ahead and continue current medical management. Continue IV antibiotic, meropenem. Will follow up with Dr. Maradiaga for patient's pulmonary complaints. Continue other current home me dications. JORDAN/MODL Voice ID: [id number] Report ID: [id number]
--- NOTE | 2020-09-06 14:58 | PN ---
Date of Progress Note: 09/06/2020 Subjective: The patient was seen this morning for followup. No new complaints or problems reported by patient. Lying in bed, not in distress, but still complains of his breathing not being normal for last 2 to 3 weeks. Before 2 to 3 weeks, he was using his noninvasive vent at nighttime and p.r.n. d uring daytime while sleeping, but very rarely he would use while awake during day. In last 2 to 3 we eks, he has been using it a lot more often during daytime while he is awake on top of his nighttime u se because of the shortness of breath problem. Objective: Vital Signs: Reviewed. HEENT: Examination unremarkable. Lungs: Clear to auscultation. Heart: Sounds normal. Abdomen: Soft. Bowel sounds normal. No guarding, rigidity, tenderness, distention. Extremities: No leg edema. Laboratory Data: Blood gas done again today by Dr. Maradiaga, pH 7.36, pCO2 48.2, PO2 69.4, saturatio n 94% on room air. Impression: 1.Acute pyelonephritis. 2.Chronic respiratory failure with hypercapnia. 3.Atrial fibrillation. 4.Hypertension. 5.Type 2 diabetes mellitus. Plan: We will continue current medication. Continue IV antibiotic. We will continue to follow up w russell Maradiaga. He has ordered some blood work to be done today. We will follow up on those results and we will see him tomorrow for fol lowup. JORDAN/MODL Voice ID: [id number] Report ID: [id number]
[2020-09-07] MEDS: IPRATROPIUM BROM 0.5MG/2.5ML NEB SCH ×2 (02:10→07:26)
[2020-09-07] MEDS: HYDROCODONE/APAP 10/325 TAB PO PRN ×2 (02:25→06:15)
[2020-09-07] MEDS: PROMETHAZINE INJ 25 MG/ML AMP IV PRN ×2 (02:25→06:16)
[2020-09-07 05:32] VITALS: TEMP 97.4
[2020-09-07] MEDS: PANTOPRAZOLE 40MG TABLET PO SCH (06:16)
[2020-09-07] MEDS: ARFORMOTEROL TARTRATE 15 MCG/2 ML VIAL.NEB NEB SCH (07:26)
[2020-09-07] MEDS: RESTASIS OPTH SCH (07:26)
[2020-09-07] MEDS: Meropenem 1,000 MG in NA CHLORIDE 0.9% 100 ML IV SCH (08:00)
[2020-09-07] MEDS: MULTIVITAMIN TAB PO SCH (08:17)
[2020-09-07] MEDS: modafiniL 100 MG TAB PO SCH (08:17)
[2020-09-07] MEDS: SENOSIDES 8.6 MG TAB PO SCH (08:17)
[2020-09-07] MEDS: SITAGLIPTIN PHOS 100 MG TAB PO SCH (08:17)
[2020-09-07] MEDS: RIVAROXABAN 20 MG TABLET PO SCH (08:17)
[2020-09-07] MEDS: FOLIC ACID 1 MG TABLET PO SCH (08:18)
[2020-09-07] MEDS: SPIRONOLACTONE 25 MG TABLET PO SCH (08:18)
[2020-09-07] MEDS: SOTALOL HCL 80 MG TAB PO SCH (08:18)
[2020-09-07] MEDS: CHLORTHALIDONE 25 MG TAB PO SCH (08:19)
[2020-09-07] MEDS: acetaZOLAMIDE 250 MG TAB PO SCH (08:19)
[2020-09-07] MEDS: METHYLPREDNISOLONE 40 MG INJ IV SCH (08:19)
[2020-09-07] MEDS: DULOXETINE 30 MG CAP PO SCH (08:19)
[2020-09-07 08:21] VITALS: BP 117/65
[2020-09-07 08:27] VITALS: O2SAT 96
--- NOTE | 2020-09-07 08:54 | P.PN ---
Subjective Date of Service: 09/07/20 Chief Complaint: Shortness of breath improving Shortness of breath is slightly better oxygenation satisfactory room-air blood gases show mild hypoxemia Review of Systems Respiratory: Shortness of Breath Physical Examination - Vital Signs Temperature: 97.4 F Blood Pressure: 117/65 Pulse: 78 Respirations: 16 Pulse Ox (%): 98 - Physical Exam General: Alert, Oriented x3 Respiratory: Clear to auscultation bilaterally, Diminished - Studies Laboratory Data (last 24 hrs) 09/06/20 13:43: WBC 9.6, Hgb 10.7 L, Hct 32.0 L, Plt Count 256 09/06/20 13:43: Sodium 137, Potassium 4.6, BUN 23 H, Creatinine 0.97, Glucose 226 H, Total Bilirubin 0.2, AST 11 L, ALT 35, Alkaline Phosphatase 59 Microbiology Data (last 24 hrs): 09/03/20 19:50 Catheterized Urine - Final Escherichia Coli Esbl Escherichia Coli Assessment & Plan - Problems (Diagnosis) (1) Respiratory failure Current Visit: Yes Status: Acute Plan: Patient is improving he may have inspiratory muscle weakness and diaphragmatic myopathy from chronic steroid use advised him to do incentive spirometry is often he can. Albuterol nebulizers p.r.n. will arrange for an outpatient pulmonary function test continue with baseline doses of prednisone patient has ESBL in the schedule to have IV antibiotics at home mild hypoxemia with mild hypercarbia patient is compliant with noninvasive ventilator the time hypersomnia has improved with the use of Provigil Qualifiers: Chronicity: acute on chronic
[2020-09-07] MEDS: MAGNESIUM OXIDE 400 MG TAB PO SCH (09:32)
--- NOTE | 2020-09-07 12:59 | DS ---
Date of Discharge: 09/07/2020 Disposition: Discharged to go home. Physical Examination: HEENT: Unremarkable. Lungs: Clear to auscultation. Heart: Sounds normal. Abdomen: Soft. Bowel sounds normal. No guarding, rigidity, tenderness, or distention. Extremities: No leg edema. Laboratory Data: On 09/03/2020, white count 10.3, hemoglobin 9.8, platelets 253. Yesterday, white count 9.6, hemoglobin 10.7, platelets 257. On 09/03/2020; sodium 135, potassium 4, chloride 100, bicarb 32, BUN 36, creatinine 1.33, glucose 154 and yesterday sodium 137, potassium 4.6, chloride 106, bicarb 27, BUN 23, creatinine 0.97, glucose 226. TSH 0.19. Urine culture grew E. coli and it is ESBL. Discharge Medications And Instructions: 1. Continue all prior home medications. 2. Meropenem 1000 mg IV every 12 hours for 10 days. 3. Removed Port-A-Cath access after IV antibiotics completed. 4. Follow up at my office on , which is 09/12/2020. 5. The patient to schedule his outpatient pulmonary function test and echocardiogram with Dr. Maradiaga and Dr. Phillips respectively. Hospital Course: A 59-year-old pleasant male patient, admitted to the hospital with flank pain and burning on urination. Please see dictated H and P for more information. The patient was admitted to the hospital with acute pyelonephritis with organism Escherichia coli which was ESBL. He had outpatient urine culture done per his transportation worker, Dr. Alvarez. Once he got the culture results back, I was notified and we made arrangements for him to get admitted to the hospital directly for IV antibiotic therapy. He did have some volume depletion problem, which was corrected. Home medications were continued. Dr. Maradiaga was consulted from Pulmonary as the patient is having increased shortness of breath in last 2-3 weeks. He has known invasive ventilator at home that he uses it every night and p.r.n. during daytime. In last 2 to 3 weeks, he is requiring increasing use of this noninvasive vent during daytime and also has noted increased shortness of breath, so Dr. Maradiaga was consulted. Chest x-ray and CAT scan of the chest were unremarkable for any acute changes. He is on continuous home oxygen as well. His continuous pulse ox monitor during hospital stay was done and did notice that when he does any exertion, his oxygen saturation drops as soon as he sits down or stops what he is doing, he recovers rapidly with oxygen saturation higher than 90% and maintaining adequate oxygenation and while talking. There is a possibility that he may have steroid induced myopathy causing him to have increased respiratory difficulty that he will definitely benefit from pulmonary function tests and Dr. Maradiaga also has suggested albuterol. I did talk to him about getting outpatient echocardiogram and pulmonary function test and he will schedule it with appropriate physician and if he needs assistance, he will contact my office. Final Diagnoses: 1. Acute pyelonephritis, organism E. coli, ESBL. 2. Volume depletion. 3. Chronic steroid therapy. 4. Chronic anticoagulation therapy. 5. Chronic atrial fibrillation. 6. Hypertension. 7. Type 2 diabetes mellitus. 8. Rheumatoid arthritis. 9. Crohn disease. 10. Urethral stricture. 11. Chronic respiratory failure with hypercapnia. 12. Gastroesophageal reflux disease. 13. Anemia, chronic, unspecified. 14. Depression. JORDAN/MODL Voice ID: [id number] Report ID: [id number] MTDSharonda
== END 2020-09-07 10:30 | disposition home or self-care (01) | DRG 689 ==
LOC: 2ND 12:46
PROVIDERS: ADMIT Internal Medicine; ATTEND Internal Medicine
DX: N10 Acute pyelonephritis (principal); J96.21 Acute and chronic respiratory failure with hypoxia; J96.22 Acute and chronic respiratory failure with hypercapnia; Z16.12 Extended spectrum beta lactamase (ESBL) resistance; I48.20 Chronic atrial fibrillation, unspecified; K50.90 Crohn's disease, unspecified, without complications; E11.9 Type 2 diabetes mellitus without complications; I10 Essential (primary) hypertension; K21.9 Gastro-esophageal reflux disease without esophagitis; E86.9 Volume depletion, unspecified; M06.9 Rheumatoid arthritis, unspecified; N35.919 Unspecified urethral stricture, male, unspecified site; F32.9 Major depressive disorder, single episode, unspecified; G47.33 Obstructive sleep apnea (adult) (pediatric); D64.9 Anemia, unspecified; B96.20 Unspecified Escherichia coli [E. coli] as the cause of diseases classified elsewhere; R60.0 Localized edema; Z86.718 Personal history of other venous thrombosis and embolism; Z86.711 Personal history of pulmonary embolism; Z91.040 Latex allergy status; Z88.8 Allergy status to other drugs, medicaments and biological substances; Z79.01 Long term (current) use of anticoagulants; Z85.47 Personal history of malignant neoplasm of testis; Z79.890 Hormone replacement therapy; Z88.5 Allergy status to narcotic agent; Z96.643 Presence of artificial hip joint, bilateral; Z20.828 Contact with and (suspected) exposure to other viral communicable diseases
CPT/HCPCS: 36415; 71045; 71250; 80053; 81001; 82805; 83735; 84439; 84443; 85025; 87077; 87086; 87088; 87186; 93970; 94010; 94640; 94760; J2185; J2550; J2920; J7512; J7605; U0002

== ENCOUNTER 2021-04-28 12:00 | Day surgery (SDC) | payer OTHER ==
[2021-04-25 11:39] VITALS: BMI 38.5
--- NOTE | 2021-04-25 12:38 | RAD REPORT ---
EXAM DESCRIPTION: Martha Santos And [place] (2 Views)04/25/2021 12:15 pm CLINICAL HISTORY: Preop for cardiac surgery COMPARISON: 2011 FINDINGS: Areas subsegmental atelectasis right lung base Left lung appears clear. Heart is borderline enlarged. Central venous line its tip in the superior vena cava
[2021-04-25 12:51] LABS: Absolute Lymphocytes (CBC) 1.5 K/uL (0.7-4.9); Basophils % 0.8 % (0-1.3); Hematocrit 36.9 % (39.6-49.0); Lymphocytes % 12.8 % (15.3-44.8); MPV 8.1 fL (7.6-11.3); Potassium 4.2 mmol/L (3.5-5.1); RBC Red Blood Cell Count 3.66 M/uL (4.33-5.43)
[~2021-04-28 12:00] MED LIST: HEPA 1000U/500MLS 2,000 UNIT/1,000 ML BAG IV ONE
[2021-04-28 12:21] LABS: Protime INR 0.91
[2021-04-28] MEDS ORDERED: NA CHLORIDE 0.9% 500 ML ONE ×2 (12:31→14:49)
[2021-04-28 12:54] VITALS: TEMP 96.8
[2021-04-28] MEDS ORDERED: MIDAZOLAM HCL 2 MG/2 ML INJ ONE (14:18)
[2021-04-28] MEDS ORDERED: HEPARIN 5000 UNIT/ML 1 ML VIAL ONE (14:18)
[2021-04-28] MEDS ORDERED: NITROGLYCERIN/D5W 0 MG/0 ML BTL IV ONE (14:19)
[2021-04-28] MEDS ORDERED: ATROPINE SULF 1 MG/10 ML SYR IV ONE (14:19)
[2021-04-28] MEDS ORDERED: VERAPAMIL HCL 10 MG/4 ML VIAL IV ONE (14:19)
[2021-04-28] MEDS ORDERED: HEPARIN 10,000 UNIT/10 ML VIAL IV ONE (14:19)
[2021-04-28] MEDS ORDERED: FENTANYL CITR 100 MCG/2 ML ONE (14:19)
[2021-04-28] MEDS ORDERED: NITROGLYCERIN 100 MCG/ML SYR (for cath lab use only) IV ONE (14:19)
[2021-04-28 16:49] VITALS: O2SAT 94
[2021-04-28 17:22] VITALS: BP 104/60
--- NOTE | 2021-04-28 21:49 | OP ---
Date of Procedure: 04/28/2021 Surgeon: ALEIDA RIOS Procedure Performed: Selective coronary angiogram. Indication: Unstable angina. Access: Right radial artery 6-Latvian closed with TR band. Complications: None. Bleeding: Less than 10 mL. Description Of Procedure: After risks, benefits, and alternatives were explained, the patient agreed to procedure and signed informed consent. The patient was brought into the cardiac catheterization laboratory, prepped and draped in usual sterile fashion. Then, we accessed right radial artery using pediatric micropuncture kit and then we placed a 6-[place]vian Slender sheath, subsequently took a 6-Fren ch JL4 catheter into the aortic root, engaged the left main, took standard views and exchanged for 6- [place] JR4 catheter into the aortic root, engaged the right coronary artery, took standard views and removed the catheters and sheath, and placed TR band with good hemostasis. Findings: 1.Left main, large and normal. 2.LAD, very large with wraps around the apex and closed the inferior wall and normal without coronar y artery disease and all branches are normal including all diagonals and septals. 3.Left circumflex, large dominant and supplies the inferior wall and the PDA, and it is totally norm al. 4.RCA, very small vessel, nondominant. No significant disease. Conclusion: Normal coronary arteries. Recommendation: Medical management. /KENDALL Voice ID: [id number] Report ID: [id number]
== END 2021-04-28 17:30 | disposition home or self-care (01) ==
LOC: CCL 12:00
PROVIDERS: ATTEND Internal Medicine
DX: I20.0 Unstable angina (principal); Z20.822 Contact with and (suspected) exposure to COVID-19; Z88.8 Allergy status to other drugs, medicaments and biological substances; Z91.040 Latex allergy status
CPT/HCPCS: 85025; 80048; 36415; 85610; 82947 ×2; 85730; 71046; 93454; U0003; C1893; J1644 ×2; J2250; J3010; J7040 ×2